=== PATIENT | female | born 1940 | race Caucasian/White ===

== ENCOUNTER → 2018-02-09 12:20 | Outpatient (CLI) | payer MEDICARE, SELFPAY ==
--- NOTE | 2018-02-09 | DI.MG.S_ITS ---
BILATERAL DIGITAL SCREENING MAMMOGRAM 3D/2D WITH CAD: 02/09/2018 CLINICAL: Routine screening. Comparison is made to exams dated: 12/10/2016 mammogram - [facility], 10/19/2015 mammogram, and 09/06/2014 mammogram - DIGITAL MAMMOGRAPHY. The tissue of both breasts is heterogeneously dense. This may lower the sensitivity of mammography. Current study was also evaluated with a Computer Aided Detection (CAD) system. No significant masses, calcifications, or other findings are seen in either breast. There has been no significant interval change. IMPRESSION: NEGATIVE There is no mammographic evidence of malignancy. A 1 year screening mammogram is recommended. This exam was interpreted at Station ID: [id number]. NOTE: For mammograms, a report in lay terms will be sent to the patient. Approximately 15% of breast malignancies will not be visualized mammographically. In the management of a palpable breast mass, a negative mammogram must not discourage biopsy of a clinically suspicious lesion. Electronically Signed By: Harris wright/abi:02/10/2018 09:22:54 letter sent: Normal Exam ACR BI-RADS Category 1: Negative [id number]
== END ==
PROVIDERS: Family Provider Physician Assistant; PCP Physician Assistant; Visit Provider Physician Assistant
DX: Z12.31 Encounter for screening mammogram for malignant neoplasm of breast (principal)
CPT/HCPCS: 77063; 77067

== ENCOUNTER → 2018-05-28 09:26 | Outpatient (CLI) | payer MEDICARE, SELFPAY ==
[2018-05-28 10:13] LABS: Add Manual Diff / Slide Review NO; Basophils Percent Auto 0.9 % (0-2); Eosinophils Percent Auto 3.3 % (2-4); Hematocrit 41.4 % (36-46); Hemoglobin 14.3 g/dL (12.0-16.0); Lymphocytes Percent Auto 24.8 % (25-40); Mean Corpuscular HGB Conc 34.7 % (30-36); Mean Corpuscular Hemoglobin 32.7 PG (26-34); Mean Corpuscular Volume 94.1 fL (80-100); Monocytes Percent Auto 6.5 % (3-14); Neutrophils Absolute Auto 2800 /uL (3000-5900); Neutrophils Percent Auto 64.5 % (50-75); Platelet Count 156 X10^3/uL (150-400); Red Blood Cell Count 4.39 X10^6/uL (4.0-5.2); Red Cell Distribution Width 12.9 % (11.6-14.8); White Blood Cell Count 4.4 X10^3/uL (4.5-11.0)
[2018-05-28 11:58] LABS: Alanine Aminotransferase 25 IU/L (9-52); Albumin 4.3 g/dL (3.5-5.0); Albumin Globulin Ratio 1.4 (1.0-2.8); Alkaline Phosphatase 52 U/L (38-126); Aspartate Aminotransferase 21 IU/L (14-36); BUN Creatinine Ratio 13.3 (6-22); Bilirubin Total 1.5 mg/dL (0.2-1.3); Blood Urea Nitrogen 12 mg/dL (7-17); Calcium 9.2 mg/dL (8.4-10.2); Carbon Dioxide 28 mmol/L (22-32); Chloride 104 mmol/L (98-107); Cholesterol 169 mg/dL (140-199); Estimated Glomerular Filt Rate > 60.0 mL/min (>60); Globulin 3.1 g/dL (1.7-4.1); Glucose 106 mg/dL (80-110); HDL Cholesterol 58 mg/dL (40-60); HEMOLYSIS < 15 (0-50); LDL Cholesterol Calculated 91 mg/dL (<100); Potassium 3.9 mmol/L (3.4-5.1); Sodium 143 mmol/L (137-145); Total Protein 7.4 g/dL (6.3-8.2); Triglycerides 100 mg/dL (35-150)
[2018-05-28 13:03] LABS: Thyroid Stimulating Hormone 1.81 uIU/mL (0.47-4.68)
== END ==
PROVIDERS: Family Provider Physician Assistant; PCP Physician Assistant; Visit Provider Physician Assistant
DX: E03.9 Hypothyroidism, unspecified (principal); E78.5 Hyperlipidemia, unspecified
CPT/HCPCS: 36415; 80053; 80061; 84443; 85025

== ENCOUNTER → 2018-10-15 19:24 | Outpatient (CLI) | payer MEDICARE, SELFPAY ==
--- NOTE | 2018-10-15 19:28 | DI.RAD.S_ITS ---
PROCEDURE: XR KNEE RT 3V INDICATIONS: Right lateral knee pain TECHNIQUE: 3 views of the knee were acquired. COMPARISON: None. FINDINGS: Bones: Moderate tricompartment osteoarthritis is seen. No acute fracture or dislocation. Soft tissues: No significant joint effusion. Well-corticated calcification in posterior aspect of lateral femoral tibial compartment is seen, suspicious for intra-articular loose body. IMPRESSION: Moderate tricompartment osteoarthritis. Possible intra-articular loose body in the posterior lateral femorotibial compartment. Dictated by: Timothy Garcia M.D. on 10/15/2018 at 20:00 Approved by: Timothy Garcia M.D. on 10/15/2018 at 20:01
== END ==
PROVIDERS: Family Provider Physician Assistant; PCP Physician Assistant; Visit Provider Physician Assistant
DX: M25.561 Pain in right knee (principal); M17.11 Unilateral primary osteoarthritis, right knee
CPT/HCPCS: 73562

== ENCOUNTER → 2018-10-20 07:01 | Outpatient (CLI) | payer MEDICARE, SELFPAY ==
--- NOTE | 2018-10-20 07:03 | DI.MRI.S_ITS ---
PROCEDURE: MR KNEE RT WO CON INDICATIONS: eval for possible intraarticular body TECHNIQUE: Noncontrast sagittal PD fast spin echo and T2 fast spin echo with fat saturation, sagittal 3-D FLASH with fat saturation; coronal T1 spin echo and PD fast spin echo with fat saturation, and axial PD fast spin echo with fat saturation through the knee. COMPARISON: None. FINDINGS: Image quality: Excellent. Menisci: Signal abnormality involving posterior horn of medial meniscus is seen extending to the inferior articulating surface suggestive of a focal oblique tear. There is no evidence of focal lateral meniscal tear.. The meniscal root ligaments appear intact. Cruciate ligaments: The anterior and posterior cruciate ligaments appear intact. Medial structures: The medial collateral ligament appears intact. The posterior oblique ligament, semimembranosus tendon insertions, oblique popliteal ligament, and meniscocapsular junction appear intact. Visualized portions of the pes anserinus tendons appear normal. No abnormal bursal fluid. Lateral structures: The lateral collateral ligament, long and short heads of the biceps femoris tendon appear intact. The popliteus tendon appears normal; the popliteofibular ligament appears intact. The posterosuperior and anteroinferior popliteomeniscal fascicles appear intact. The arcuate and fabellofibular ligaments appear intact, on either side of the lateral inferior geniculate artery. Iliotibial band appears normal. Anterior structures: The quadriceps and patellar tendons appear intact. Patellar alignment is normal. No femoral trochlear dysplasia or ventral trochlear prominence. No edema in the infrapatellar fat pad. Bones and cartilage: Moderate tricompartmental osteoarthritis is seen more prominent in the medial femorotibial compartment. No fracture or dislocation. Marrow edema involving anterior weight-bearing portion of lateral femoral condyle is seen with suggestion of 5 mm osteochondral lesion in this area. Chondromalacia as well all 3 compartments of right knee is seen. Joint space: There is small to moderate amount of knee joint fluid. No Valdez's cyst. Normal appearing synovial plicae are incidentally noted. IMPRESSION: #1. Suggestion of focal oblique tear involving posterior horn of medial meniscus extending to inferior articulating surface. No focal lateral meniscal tear. #2. Moderate tricompartment osteoarthritis and chondromalacia more prominent in the medial femorotibial compartment. Small osteochondral lesion is likely present involving anterior weight-bearing portion of lateral femoral condyle. #3. Small to moderate amount of joint effusion. No gross loose body. #4. Cruciate ligaments are intact. Dictated by: Timothy Garcia M.D. on 10/20/2018 at 10:14 Approved by: Timothy Garcia M.D. on 10/20/2018 at 10:58
== END ==
PROVIDERS: Family Provider Physician Assistant; PCP Physician Assistant; Visit Provider Physician Assistant
DX: M25.561 Pain in right knee (principal); M17.11 Unilateral primary osteoarthritis, right knee; M94.261 Chondromalacia, right knee; M25.461 Effusion, right knee
CPT/HCPCS: 73721

== ENCOUNTER 2018-11-26 10:48 | Day surgery (SDC) | payer MEDICARE, SELFPAY ==
[2018-11-26] VITALS (7 sets, daily range): BP systolic 118–138; BP diastolic 74–91; PULSE 96–114; RESP 12–17; TEMP 36.3–36.9; O2SAT 91–96; BMI 26.9
[2018-11-26] MEDS: SODIUM CHLORIDE 0.9% 1,000 ML 200 ML IV (11:16)
--- NOTE | 2018-11-26 11:23 | PM.HP.1 ---
History of Present Illness Chief complaint: [id number] Colonoscopy Patient History Social History household members: none Smoking Status: Never smoker Family & Social History Social History: household members none Tobacco & Substance use: Smoking Status Never smoker Meds Home Medications Medication Instructions Recorded Confirmed Type atorvastatin PO 10/15/18 10/15/18 History levothyroxine PO 10/15/18 10/15/18 History Allergies Allergy/AdvReac Type Severity Reaction Status Date / Time penicillin G [PENICILLIN G] Allergy Intermediate Unverified 10/28/17 12:32 Sulfa (Sulfonamide Allergy Intermediate Unverified 10/28/17 12:32 Antibiotics) [SULFA (SULFONAMIDE ANTIBIOTICS)] codine Allergy Severe Uncoded 10/28/17 12:32 Review of Systems Review of Systems All systems reviewed & are unremarkable except as noted in HPI and below Exam Vital Signs (past 8 hours): - 11/26/18 11:10 Temperature 98.4 F Pulse Rate 114 H Respiratory Rate 16 Blood Pressure 138/91 H Pulse Oximetry 94 Oxygen Delivery Method Room Air Narrative Exam Narrative: Patient is alert and oriented Vital signs are stable Lungs are clear with no rales or wheezes Heart regular rhythm no murmur Abdomen soft nontender no masses Rectal will be done at colonoscopy Assessment & Plan Assessment & Plan narrative: Patient is here for screening colonoscopy she has had prior scopes in the past she is on certain about history of polyps. She is asymptomatic no melena or hematochezia she has no questions about the procedure
[2018-11-26] MEDS: fentaNYL 250 MCG/5 ML INJ IV (11:32)
[2018-11-26] MEDS: MIDAZOLAM 5 MG/5 ML VIAL IV (11:33)
--- NOTE | 2018-11-26 11:54 | PM.OP.ENDO ---
Operative Date/Time/Diagnoses Date of procedure: 11/26/18 Time of procedure: 11:55 Pre-op diagnosis: Screening colonoscopy Post-op diagnosis: other (Severe sigmoid diverticulosis without diverticulitis) Procedure & Clinicians Study performed: Total colonoscopy to the cecum Same procedure as scheduled: Yes Indications: Screening Surgeon: Cleve Castaneda Procedure Notes SCOAP/Timeout: Done Procedure in detail: The patient was properly identified during surgical pause. She was given a total of 4 mg of Versed and 150 micro g of fentanyl throughout the procedure. the flexible fiberoptic colonoscope was inserted transanally to the cecum. The patient has severe sigmoid diverticulosis making this a difficult colonoscopy. However she tolerated this well. there were no tumors and no polyps no ulcerations. There is no diverticulitis. Scope withdrawal time: 10 Sedation minutes: 24 Findings: diverticulosis Specimen(s): none sent Complications: none Recommendations: Colonscopy in 10 years Follow up: as needed Disposition: PACU
--- NOTE | 2018-11-26 12:12 | SUR.PHASEI ---
Post procedure PACU Note: VSS on arrival. O2 sat 91% on RA O2 2 L/NC placed. Sats improved to 95%. Sitting up, tolerating po without any nausea. No complaints of pain or discomfort.
--- NOTE | 2018-11-26 12:16 | SUR.PHASEI ---
Verbal report given to Jaxon Carmona RN. for lunch relief. Patient stable to be transfered to [facility]. luisito Grissom
--- NOTE | 2018-11-26 12:59 | SUR.PHASEII ---
Late entry: Assumed care from Dashawn Cunha. Pt' ready to go, VSS. D/c instructions discussed, belly soft and no nausea. Assisted pt to dress and pt left when ready and in stable condition.
== END 2018-11-26 12:55 | disposition home or self-care (01) ==
PROVIDERS: Family Provider Physician Assistant; PCP Physician Assistant; Visit Provider Surgery
PROC: 0DJD8ZZ Inspection of Lower Intestinal Tract, Via Natural or Artificial Opening Endoscopic (ICD-10-PCS; CPT 45378; principal; 2018-11-26 13:00)
DX: Z12.11 Encounter for screening for malignant neoplasm of colon (principal); K57.30 Diverticulosis of large intestine without perforation or abscess without bleeding
CPT/HCPCS: G0121; 99152; 99153; J2250; J3010

== ENCOUNTER → 2019-02-18 10:58 | Outpatient (CLI) | payer MEDICARE, SELFPAY ==
--- NOTE | 2019-02-18 | DI.US.S_ITS ---
PROCEDURE: US PERIPH VENOUS LOW EXTREM RT INDICATIONS: PAIN IN RT LEG TECHNIQUE: Real-time imaging, as well as color and pulse Doppler interrogation, were performed of the lower extremity deep veins from the inguinal ligament to the popliteal fossa. COMPARISON: None. FINDINGS: The common femoral, femoral and popliteal veins are normally compressible, and free of intraluminal thrombus. Color and pulse Doppler demonstrate normal phasic intraluminal flow. There is normal augmentation response to distal compression maneuver. IMPRESSION: No evidence of deep venous thrombosis Dictated by: Isaiah Estes M.D. on 02/18/2019 at 12:54 Approved by: Isaiah Estes M.D. on 02/18/2019 at 12:55
== END ==
PROVIDERS: Family Provider Physician Assistant; PCP Physician Assistant; Visit Provider Orthopaedic Surgery
DX: M79.604 Pain in right leg (principal)
CPT/HCPCS: 93971

== ENCOUNTER → 2019-03-11 11:37 | Outpatient (CLI) | payer MEDICARE, SELFPAY ==
[2019-03-11 12:25] LABS: Add Manual Diff / Slide Review NO; Basophils Absolute Auto 0 /uL (0-100); Basophils Percent Auto 0.8 % (0-2); Eosinophils Absolute Auto 100 /uL (0-450); Eosinophils Percent Auto 2.7 % (2-4); Hemoglobin 14.3 g/dL (12.0-16.0); Lymphocytes Absolute Auto 1300 /uL (1100-4500); Lymphocytes Percent Auto 27.5 % (25-40); Mean Corpuscular HGB Conc 35.7 % (30-36); Mean Corpuscular Hemoglobin 32.4 PG (26-34); Mean Corpuscular Volume 90.6 fL (80-100); Monocytes Absolute Auto 400 /uL (0-900); Monocytes Percent Auto 7.6 % (3-14); Neutrophils Absolute Auto 2800 /uL (1500-7000); Neutrophils Percent Auto 61.4 % (50-75); Platelet Count 149 X10^3/uL (150-400); Red Blood Cell Count 4.42 X10^6/uL (4.0-5.2); White Blood Cell Count 4.6 X10^3/uL (4.5-11.0)
[2019-03-11 12:46] LABS: Alanine Aminotransferase 15 IU/L (9-52); Albumin 4.4 g/dL (3.5-5.0); Albumin Globulin Ratio 1.4 (1.0-2.8); Alkaline Phosphatase 60 U/L (38-126); Aspartate Aminotransferase 22 IU/L (14-36); Bilirubin Total 1.5 mg/dL (0.2-1.3); Blood Urea Nitrogen 16 mg/dL (7-17); Calcium 9.6 mg/dL (8.4-10.2); Carbon Dioxide 23 mmol/L (22-32); Chloride 106 mmol/L (98-107); Cholesterol 186 mg/dL (140-199); Estimated Glomerular Filt Rate > 60.0 mL/min (>60); Globulin 3.2 g/dL (1.7-4.1); Glucose 104 mg/dL (80-110); HDL Cholesterol 61 mg/dL (40-60); HEMOLYSIS < 15 (0-50); LDL Cholesterol Calculated 104 mg/dL (<100); Potassium 4.2 mmol/L (3.4-5.1); Sodium 140 mmol/L (137-145); Total Protein 7.6 g/dL (6.3-8.2); Triglycerides 106 mg/dL (35-150)
[2019-03-11 13:15] LABS: Thyroid Stimulating Hormone 0.99 uIU/mL (0.47-4.68)
== END ==
PROVIDERS: PCP Physician Assistant; Visit Provider Physician Assistant
DX: E03.9 Hypothyroidism, unspecified (principal); E78.5 Hyperlipidemia, unspecified
CPT/HCPCS: 36415; 80053; 80061; 84443; 85025

== ENCOUNTER → 2019-05-07 14:28 | Outpatient (CLI) | payer MEDICARE, SELFPAY ==
--- NOTE | 2019-05-07 | DI.MRI.S_ITS ---
PROCEDURE: MR LUMBAR SPINE WO CON INDICATIONS: Low back pain TECHNIQUE: Noncontrast sagittal T1 spin echo and T2 fast echo, sagittal STIR, axial T1 and T2 fast spin echo through the lumbar spine. In cases with scoliosis, additional coronal T2 fast spin echo may be performed. COMPARISON: None. FINDINGS: Image quality: Excellent. Alignment and Curvature: There is trace retrolisthesis of L1 on L2, L2 on L3. There is an appearance of partial lumbarization of the S1 vertebral body. For purposes of this exam, vertebral bodies are labeled one through 5. Bone Marrow: Marrow is of normal overall signal. Mild reactive endplate changes are present at L3-4 and L4-5 and to a lesser degree L1-L2, L2-3 and L5-S1. No acute vertebral body compression fractures. Schmorl's nodes are noted along the inferior endplates of L1, L2, L3 and L4 and along the superior endplates of L3, L4 and L5. Mild reactive marrow edema is noted at L2, L3, L4 and L5 predominately along the inferior endplates with superior endplate edema at L5. Spinal Cord: Conus medullaris terminates at the L2 level. Visualized cord demonstrates normal signal. There is an overall appearance of normal to mild congenital stenosis. Paraspinous Soft Tissues: No paravertebral masses. Multiple stones are noted within the gallbladder without wall thickening. There is a heterogeneous focus of hyperintensity within the posterior left kidney measuring 16 mm. Additional similar foci are noted bilaterally although not fully included within the [id number]. Discs: Severe desiccation is present throughout the lumbar spine. L1-L2: Mild disc bulge with mild spinal stenosis. Mild to moderate bilateral foraminal narrowing, left greater than right with facet and ligamentum flavum hypertrophy. L2-L3: Mild disc bulge with moderate spinal stenosis. Moderate bilateral foraminal narrowing with facet and ligamentum flavum hypertrophy. L3-L4: Mild disc bulge with moderate spinal stenosis. Moderate right and mild to moderate left foraminal narrowing with facet and ligamentum flavum hypertrophy. L4-L5: Mild disc bulge with moderate spinal stenosis. Mild to moderate left and minimal to mild right foraminal narrowing with facet and ligamentum flavum hypertrophy. L5-S1: Mild disc bulge including a small left foraminal protrusion. Moderate left foraminal narrowing. Facet and ligamentum flavum hypertrophy are present. IMPRESSION: 1. Multilevel degenerative changes. 2. Multilevel spinal stenosis moderate from L2-3 through L4-5 secondary to disc bulge with contributing factor facet/ligamentum flavum arthropathy. 3. Multilevel foraminal narrowing most notable at L2-3 and L5-S1 secondary to facet/ligamentum flavum arthropathy. 4. Cholelithiasis. 5. Multiple areas of somewhat heterogeneous T2 signal within the kidneys as above. While these could represent complex cysts, no priors are available for comparison. Ultrasound is recommended for further evaluation. Dictated by: Jade Herzog M.D. on 05/09/2019 at 11:59 Approved by: Jade Herzog M.D. on 05/09/2019 at 12:07
== END ==
PROVIDERS: PCP Physician Assistant; Visit Provider Physical Medicine & Rehabilitation Pain Medicine
DX: M47.816 Spondylosis without myelopathy or radiculopathy, lumbar region (principal); M47.817 Spondylosis without myelopathy or radiculopathy, lumbosacral region; M48.061 Spinal stenosis, lumbar region without neurogenic claudication; M48.07 Spinal stenosis, lumbosacral region; M51.26 Other intervertebral disc displacement, lumbar region; M51.27 Other intervertebral disc displacement, lumbosacral region; K80.20 Calculus of gallbladder without cholecystitis without obstruction
CPT/HCPCS: 72148

== ENCOUNTER → 2019-05-25 09:37 | Outpatient (CLI) | payer MEDICARE, SELFPAY ==
--- NOTE | 2019-05-25 | DI.US.S_ITS ---
PROCEDURE: US RENAL COMPLETE INDICATIONS: CYST OF KIDNEY, ACQUIRED TECHNIQUE: Real-time scanning was performed of the kidneys and bladder, with image documentation. COMPARISON: [facility], MR, MR LUMBAR SPINE WO CON, 05/07/2019, 14:51. FINDINGS: Kidneys: Kidneys are normal in size. Right kidney measures 9.8 cm long; left kidney measures 9.9 cm long. Right renal cortical thickness is 0.8 cm; left renal cortical thickness is 1.5 cm. Renal cortical echotexture is normal. No hydronephrosis or nephrolithiasis. There are 2 solid echogenic foci involving the superior pole the right kidney, largest measuring roughly 8 mm. Mildly complex right mid renal cortical cyst measuring 1.2 x 1.2 x 1.0 cm. Mural calcifications present. Multiple left renal cysts present, largest measuring 1.5 x 2.6 x 1.9 cm which is mildly complex with mural calcification. Bladder: Pre-void bladder volume is 93 mL. Post-void residual is 5 mL. Pre-void images demonstrate no intraluminal masses or stones. On pre-void images, bilateral ureteral jets are noted with color Doppler interrogation. (Of note, ureteral jets may not be detectable in up to 25% of cases due to insufficient differences in specific gravity between ureteral and bladder urine). Miscellaneous: No free pelvic fluid. Incidental note of cholelithiasis with multiple echogenic mobile shadowing gallstones. Limited evaluation demonstrates no gallbladder wall thickening. IMPRESSION: 1. 2 echogenic foci involving the superior pole the right kidney suggestive of small angiomyolipomas. 2. Bilateral complex cysts (Bosniak 2) largest of which is on the left measuring up to 2.6 cm. Recommend followup ultrasound in 6 months to document temporal stability. Alternatively, renal protocol CT or MRI could be performed for further assessment. 3. Cholelithiasis noted in the gallbladder. Dictated by: Armando Magallon [facility] Interpreted: Germán Montalvo MD on 05/25/2019 at 14:03 Approved by: Germán Montalvo M.D. on 05/25/2019 at 15:44
== END ==
PROVIDERS: PCP Physician Assistant; Visit Provider Physician Assistant
DX: N28.1 Cyst of kidney, acquired (principal); K80.20 Calculus of gallbladder without cholecystitis without obstruction
CPT/HCPCS: 76770

== ENCOUNTER → 2019-07-19 14:17 | Outpatient (CLI) | payer MEDICARE, SELFPAY ==
--- NOTE | 2019-07-19 | DI.MG.S_ITS ---
BILATERAL DIGITAL SCREENING MAMMOGRAM 3D/2D WITH CAD: 07/19/2019 CLINICAL: Routine screening. Comparison is made to exams dated: 02/09/2018 mammogram, 12/10/2016 mammogram - [facility], 10/19/2015 mammogram, 09/06/2014 mammogram, 08/16/2013 mammogram, and 04/06/2012 mammogram - DIGITAL MAMMOGRAPHY. The tissue of both breasts is heterogeneously dense. This may lower the sensitivity of mammography. Current study was also evaluated with a Computer Aided Detection (CAD) system. No significant masses, calcifications, or other findings are seen in either breast. There has been no significant interval change. IMPRESSION: NEGATIVE There is no mammographic evidence of malignancy. A 1 year screening mammogram is recommended. This exam was interpreted at Station ID: [id number]. NOTE: For mammograms, a report in lay terms will be sent to the patient. Approximately 15% of breast malignancies will not be visualized mammographically. In the management of a palpable breast mass, a negative mammogram must not discourage biopsy of a clinically suspicious lesion. Electronically Signed By: Jaxson pena/abi:07/19/2019 18:08:24 letter sent: Normal Exam ACR BI-RADS Category 1: Negative [id number]
== END ==
PROVIDERS: PCP Physician Assistant; Visit Provider Physician Assistant
DX: Z12.31 Encounter for screening mammogram for malignant neoplasm of breast (principal)
CPT/HCPCS: 77063; 77067

== ENCOUNTER 2019-09-01 13:30 | Outpatient (RCR) | payer MEDICARE, SELFPAY ==
--- NOTE | 2019-07-05 12:45 | PT.OIE ---
Current Diagnoses Spinal stenosis, lumbar region with neurogenic claudication (07/08/19) Low back pain (07/08/19) Visit Care Team Role Provider Type Symone Landrum PA-C Primary Care Provider Advanced Senior Care Assistant Specialty: Internal Medicine Address: [address] [place] [address], [id number] Email: [email or web address] Jamal Jaramillo MD Attending Provider Physician Specialty: Physical Medicine and Rehab Address: [address] [place] [address], [id number] Email: [email or web address] [facility] Initial Evaluation PT-OP-A Visit Information Start: 07/05/19 11:23 Freq: Status: Active Protocol: Document 07/05/19 11:24 LRN (Rec: 07/05/19 12:46 LRN [id number]) Out-Patient Physical Therapy Visit Information Visit Information Visit Type Initial Evaluation Visit Start Time 11:24 Visit Stop Time 12:24 Total Visit Minutes 60 Visit Number 1 Number of BALL WARPER TENDER Visits 0 Evaluation Information Evaluation Date 07/05/19 Precautions Precautions Pt reported Epidural 3 weeks ago (~06/14/19). Multilevel DDD with mild disc bulging L1 through S1 and at L5-S1 L foraminal protrusion. PT-OP-B Current Condition Start: 07/05/19 11:23 Freq: Status: Active Protocol: Document 07/05/19 11:24 LRN (Rec: 07/05/19 12:46 LRN [id number]) Current Condition History of Current Condition Onset Date 2011 epidurals, Fell Aug 2018 Current Complaints Low back pain and radiatint R LE pain. History of Current Condition Missed a step going from a boat to a smaller boat and landed on her buttocks. Was able to get up and felt a little sore, then it started to flare up. Tore R meniscus October 15, 2018 causing limping and increasing back pain. Lives alone, , single level home. Prior Treatments and Tests Per patient: Epidural in spine ~3 weeks ago that has helped a lot. X-rays @ [facility]: Arthritis, DDD and stenosis. MRI @ [facility] Cortisone injection in R knee, PT for knee, & 4 Hyaluronic injections (January 09, 2019), last one 02/28/19. Developmental History Developmental History Tore meniscus in the R knee. R handed. Treatment Goals Patient/Caregiver Goals Pt goal with therapy is to be able to walk 3 miles ([place] in 1 hour), and handle a trip by air with luggage and stairs by self. Prior Functional Status Baseline Function- ADL's Independent Baseline Function- Mobility Independent Baseline Function- Gait Able to walk 3 miles ([place] in 1 hour) Baseline Function- Other Avoided heavy lifting. Hires help to clean house. Current Functional Impairments (Reported) Functional Limitations- ADL's Walks less than 1/2 mile. Grocery shopping is painful at the end. Functional Limitations- Mobility/Gait Walking with excessive trunk sway. Personal Factors Other Personal Factors That May Effect Lives alone. Therapy/Recovery PT-OP-C Subjective Start: 07/05/19 11:23 Freq: Status: Active Protocol: Document 07/05/19 11:24 LRN (Rec: 07/05/19 12:46 LRN [id number]) Patient Questionnaires Oswestry Low Back Index Oswestry Score 22 Oswestry Impairment 20 to 39% Impaired (Score 20- 39) OP-PT Pain Assessment Location Back Pain Location Details Center of the back Intensity 3 Scale Used Numeric (1 - 10) Description Aching,Stabbing Pain Duration Low ache is all the time. Stabbing is when moving ( radiating pn before inj) Pain Aggravating Factors Standing,Walking,Prolonged Bedrest Other Pain Alleviating Factors IBP if really uncomfortable PT-OP-G Mobility & Gait Start: 07/05/19 11:23 Freq: Status: Active Protocol: Document 07/05/19 11:24 LRN (Rec: 07/08/19 12:41 LRN [id number]) OP Mobility Evaluation Bed Mobility Rolling Poor core control. Supine to and from Sit Pt transfers by lying or lifting trunk straight up into sitting. Transfers Sit to Stand Fair, poor hip hinging. OP Gait Assessment Gait Gait Assistance Required: Independent Able to Maintain Weight Bearing Status Yes During Gait Assistive Devices Assistive Device None Gait Deviations General Gait Pattern Decreased Stride Length, Lateral Trunk Lean Factors Limiting Gait Function Factors Limiting Gait Function Pain,Poor Balance PT-OP-H Neuro Start: 07/05/19 11:23 Freq: Status: Active Protocol: Document 07/05/19 11:24 LRN (Rec: 07/08/19 12:41 LRN [id number]) Sensation Evaluation Gross Sensation Gross Sensation WNL Deep Tendon Reflex & Clonus Assessment Deep Tendon Reflex Bilateral Achilles Deep Tendon Reflex 0 Absent Bilateral Patellar Deep Tendon Reflex 2+ Normal PT-OP-J Posture/Palpation/Skin Start: 07/05/19 11:23 Freq: Status: Active Protocol: Document 07/05/19 11:24 LRN (Rec: 07/08/19 09:46 LRN [id number]) Posture Evaluation Position Standing Evaluation View All positions L-Spine Posture Flattened,Flexed Pelvis Posture (L) Iliac Crest Superior Comments Posture Comments Flexed hips 15 deg's. L PSIS is deep. PT-OP-K Range of Motion Start: 07/05/19 11:23 Freq: Status: Active Protocol: Document 07/05/19 11:24 LRN (Rec: 07/08/19 09:46 LRN [id number]) Lumbar Spine Range of Motion Lumbar Spine Active Degrees Testing Position Standing Flexion 55 Extension 5 Lateral Flexion Left 8 Lateral Flexion Right 5 Comments With R SB there is L LBP on return to upright. Hip Goniometric Range of Motion Hip Right Passive Testing Position Supine Internal Rotation 40 External Rotation 45 Left Passive Testing Position Supine Internal Rotation 35 External Rotation 50 Hip ROM Limitations Hip ROM Limitations Pain PT-OP-L Special Tests Start: 07/05/19 11:23 Freq: Status: Active Protocol: Document 07/05/19 11:24 LRN (Rec: 07/08/19 12:37 LRN [id number]) Special Tests Lumbar Spine Special Tests Straight Leg Raise Test Results + left Comments PSLR: 70 left, 85 right. PT-OP-M Strength Start: 07/05/19 11:23 Freq: Status: Active Protocol: Document 07/05/19 11:24 LRN (Rec: 07/08/19 12:37 LRN [id number]) Hip Strength Hip Manual Muscle Testing Right Comments Generally 5/5. Left Flexion (L2) 3 Fair Comments Generally 5/5 except hip flexion above. PT-OP-Q Treatments Start: 07/05/19 11:23 Freq: Status: Active Protocol: Document 07/05/19 11:24 LRN (Rec: 07/08/19 12:37 LRN [id number]) Self-Care/Home Management Treatment Education Patient Education Body Mechanics,Home Exercise Program Activities Self-Care/Home Management Activities I/S & reviewed pt in HEP: Trunk R lateral shift with R shoulder against wall. I/S & reviewed: log roll transfers and sit to stand. I/S pt in gait with use of 2 hiking poles. PT-OP-T Assessment and Plan Start: 07/05/19 11:23 Freq: Status: Active Protocol: Document 07/05/19 11:24 LRN (Rec: 07/05/19 12:46 LRN [id number]) Physical Therapy Assessment Rehab Potential Rehabilitation Potential Good Evaluation Complexity Number of Personal Factors/Comorbidities 3 or More Number of Body Systems Impaired 4 or More Clinical Presentation at Evaluation Evolving Impairments Impairments Activity Tolerance,Functional Mobility,Gait,Pain,Posture,ROM ,Strength Goals Four Impairment Decreased functional strength of carrying objects up/down stairs. Jail Goal (LTG) Pt will be able to ambulate 4 steps x 2 with 3-5# weight with pain no greater than 2/10 . LTG Duration 09/16/19 Three Impairment Decreased functional mobility. Jail Goal (LTG) Pt will be feel confident in travelling by air and managing luggage by herself. LTG Duration 09/16/19 Two Impairment Decreased ability to exercise for her health (prior level walked 3 miles) Short Term Goal (STG) Pt goal with therapy is to be able to walk 3 miles ([place] in 1 hour), and handle a trip by air with luggage and stairs by self. [ End ] Volunteer Services Specialist Goal (LTG) Pt will be able to tolerate walking 3 miles (1 hour) on level ([place]) with use of walking sticks and pain no greater than 2/10. LTG Duration 09/16/19 One Impairment Pt lacks self care HEP Jail Goal (LTG) Pt will be independent in a self care HEP. LTG Duration 09/16/19 Assessment Summary Assessment Pt presents with changes in gait mechanics and posture probably due to R knee pain and pain from her degenerative disc condition. She has soft tissue and mechanical dysfunction of her spine that is limiting her physical and functional abilities. The pt will benefit from skilled physical therapy to decrease her back pain, improve posture and gait and progress her to a more active and functional condition. Her R knee meniscus injury may prevent her from achieving her full prior level of function, and I expect that if she is not able to improve within 8 therapy visits her knee injury may be her limiting factor in her ability to rehabilitate her back. Physical Therapy Plan Frequency and Duration Plan of Care Start Date 07/05/19 Plan of Care End Date 09/16/19 Therapeutic Interventions Therapeutic Interventions Balance Training,Gait Training ,Home Exercise Program,Manual Therapy,Neuromuscular Re- education,Patient/Caregiver Education,Self-Care/Home Management,Soft Tissue Mobilization,Therapeutic Exercises Modalities Cold Pack/Ice Massage,Electric Stimulation,Ultrasound Next Visit Focus/Plan Next Note Type Treatment Note Next Visit Plan Review HEP: lateral shift ex against wall, sit<->supine log roll technique, gait training if pt brings hiking poles for assist with gait to offload weight in R knee. STM to low back with trunk ext exercise program. End with MH or cryotherapy/IFES. Progress back rehabilitation with caution of R knee meniscus tear.
--- NOTE | 2019-07-08 13:20 | PT.OTN ---
Current Diagnoses Spinal stenosis, lumbar region with neurogenic claudication (07/08/19) Low back pain (07/08/19) Physical Therapy Treatment Note PT-OP-A Visit Information Start: 07/05/19 11:23 Freq: Status: Active Protocol: Document 07/08/19 11:24 LRN (Rec: 07/08/19 13:19 LRN [id number]) Out-Patient Physical Therapy Visit Information Visit Information Visit Type Treatment Note Visit Start Time 11:24 Visit Stop Time 12:10 Total Visit Minutes 46 Visit Number 2 Number of HEALTH SCIENCE INSTRUCTOR Visits 0 Evaluation Information Evaluation Date 07/05/19 Precautions Precautions Pt reported Epidural 3 weeks ago (~06/14/19). Multilevel DDD with mild disc bulging L1 through S1 and at L5-S1 L foraminal protrusion. PT-OP-B Current Condition Start: 07/05/19 11:23 Freq: Status: Active Protocol: Document 07/05/19 11:24 LRN (Rec: 07/05/19 12:46 LRN [id number]) Current Condition History of Current Condition Onset Date 2011 epidurals, Fell Aug 2018 Current Complaints Low back pain and radiatint R LE pain. History of Current Condition Missed a step going from a boat to a smaller boat and landed on her buttocks. Was able to get up and felt a little sore, then it started to flare up. Tore R meniscus October 15, 2018 causing limping and increasing back pain. Lives alone, , single level home. Prior Treatments and Tests Per patient: Epidural in spine ~3 weeks ago that has helped a lot. X-rays @ [facility]: Arthritis, DDD and stenosis. MRI @ [facility] Cortisone injection in R knee, PT for knee, & 4 Hyaluronic injections (January 09, 2019), last one 02/28/19. Developmental History Developmental History Tore meniscus in the R knee. R handed. Treatment Goals Patient/Caregiver Goals Pt goal with therapy is to be able to walk 3 miles ([employer] [address] [place] in 1 hour), and handle a trip by air with luggage and stairs by self. Prior Functional Status Baseline Function- ADL's Independent Baseline Function- Mobility Independent Baseline Function- Gait Able to walk 3 miles ([employer] [address] [place] in 1 hour) Baseline Function- Other Avoided heavy lifting. Hires help to clean house. Current Functional Impairments (Reported) Functional Limitations- ADL's Walks less than 1/2 mile. Grocery shopping is painful at the end. Functional Limitations- Mobility/Gait Walking with excessive trunk sway. Personal Factors Other Personal Factors That May Effect Lives alone. Therapy/Recovery PT-OP-C Subjective Start: 07/05/19 11:23 Freq: Status: Active Protocol: Document 07/08/19 11:24 LRN (Rec: 07/08/19 13:19 LRN [id number]) OP-PT Subjective Patient Comments Patient Comments States stiff all over. Admits she did not do the lateral shift exercise. Reports she brought a cane and walking sticks. PT-OP-G Mobility & Gait Start: 07/05/19 11:23 Freq: Status: Active Protocol: Document 07/05/19 11:24 LRN (Rec: 07/08/19 12:41 LRN [id number]) OP Mobility Evaluation Bed Mobility Rolling Poor core control. Supine to and from Sit Pt transfers by lying or lifting trunk straight up into sitting. Transfers Sit to Stand Fair, poor hip hinging. OP Gait Assessment Gait Gait Assistance Required: Independent Able to Maintain Weight Bearing Status Yes During Gait Assistive Devices Assistive Device None Gait Deviations General Gait Pattern Decreased Stride Length, Lateral Trunk Lean Factors Limiting Gait Function Factors Limiting Gait Function Pain,Poor Balance PT-OP-H Neuro Start: 07/05/19 11:23 Freq: Status: Active Protocol: Document 07/05/19 11:24 LRN (Rec: 07/08/19 12:41 LRN [id number]) Sensation Evaluation Gross Sensation Gross Sensation WNL Deep Tendon Reflex & Clonus Assessment Deep Tendon Reflex Bilateral Achilles Deep Tendon Reflex 0 Absent Bilateral Patellar Deep Tendon Reflex 2+ Normal PT-OP-J Posture/Palpation/Skin Start: 07/05/19 11:23 Freq: Status: Active Protocol: Document 07/05/19 11:24 LRN (Rec: 07/08/19 09:46 LRN [id number]) Posture Evaluation Position Standing Evaluation View All positions L-Spine Posture Flattened,Flexed Pelvis Posture (L) Iliac Crest Superior Comments Posture Comments Flexed hips 15 deg's. L PSIS is deep. PT-OP-K Range of Motion Start: 07/05/19 11:23 Freq: Status: Active Protocol: Document 07/05/19 11:24 LRN (Rec: 07/08/19 09:46 LRN [id number]) Lumbar Spine Range of Motion Lumbar Spine Active Degrees Testing Position Standing Flexion 55 Extension 5 Lateral Flexion Left 8 Lateral Flexion Right 5 Comments With R SB there is L LBP on return to upright. Hip Goniometric Range of Motion Hip Right Passive Testing Position Supine Internal Rotation 40 External Rotation 45 Left Passive Testing Position Supine Internal Rotation 35 External Rotation 50 Hip ROM Limitations Hip ROM Limitations Pain PT-OP-L Special Tests Start: 07/05/19 11:23 Freq: Status: Active Protocol: Document 07/05/19 11:24 LRN (Rec: 07/08/19 12:37 LRN [id number]) Special Tests Lumbar Spine Special Tests Straight Leg Raise Test Results + left Comments PSLR: 70 left, 85 right. PT-OP-M Strength Start: 07/05/19 11:23 Freq: Status: Active Protocol: Document 07/05/19 11:24 LRN (Rec: 07/08/19 12:37 LRN [id number]) Hip Strength Hip Manual Muscle Testing Right Comments Generally 5/5. Left Flexion (L2) 3 Fair Comments Generally 5/5 except hip flexion above. PT-OP-Q Treatments Start: 07/05/19 11:23 Freq: Status: Active Protocol: Document 07/08/19 11:24 LRN (Rec: 07/08/19 13:19 LRN [id number]) Therapeutic Exercises Prone Exercises Trunk ext Prone Exercise Name Prone lying & partial prone on elbows Reps/Minutes 3' Standing Exercises R lateral trunk shift Standing Exercise Name Lateral trunk shift Side right Reps/Minutes 3' Gait Training Gait Activity Gait w/cane & walking sticks Description Normalize gait to reduce trunk sway and improve R hip shift Device Used Cane or walking sticks Level of Assistance SBA Surface level Distance/Duration 20' PT-OP-R Modalities Start: 07/05/19 11:23 Freq: Status: Active Protocol: Document 07/08/19 11:24 LRN (Rec: 07/08/19 13:19 LRN [id number]) Electric Stimulation Electric Stimulation Interferential Current (IFC) Body Location Cross at L5-S1 and sacrum Duration (Minutes) 10 Intensity 12 Target/Sweep Sweep Patient Position Sidelying Combined With Heat/Cold Cold Pack Comments R sidelye. Extra time taken for initial set up and comfort of patient. Hot Pack/Cold Pack Treatment Cold Pack Location L LB/hip Patient Position Sidelying Treatment Duration (minutes) 10 Patient Tolerance Fair Comments Extra layer of towel and pillowcase between skin and cryotherapy. PT-OP-T Assessment and Plan Start: 07/05/19 11:23 Freq: Status: Active Protocol: Document 07/08/19 11:24 LRN (Rec: 07/08/19 13:19 LRN [id number]) Physical Therapy Assessment Goals Four Impairment Decreased functional strength of carrying objects up/down stairs. Mcc Goal (LTG) Pt will be able to ambulate 4 steps x 2 with 3-5# weight with pain no greater than 2/10 . LTG Duration 09/16/19 Three Impairment Decreased functional mobility. Geospatial Analyst Goal (LTG) Pt will be feel confident in travelling by air and managing luggage by herself. LTG Duration 09/16/19 Two Impairment Decreased ability to exercise for her health (prior level walked 3 miles) Short Term Goal (STG) Pt goal with therapy is to be able to walk 3 miles ([employer] [address] [place] in 1 hour), and handle a trip by air with luggage and stairs by self. [ End ] Geospatial Analyst Goal (LTG) Pt will be able to tolerate walking 3 miles (1 hour) on level ([employer] [address] [place]) with use of walking sticks and pain no greater than 2/10. LTG Duration 09/16/19 One Impairment Pt lacks self care HEP Geospatial Analyst Goal (LTG) Pt will be independent in a self care HEP. LTG Duration 09/16/19 Assessment Summary Assessment Pt needed review of lateral hip shift ex; hasn't been doing it. Pt has poor lateral hip shift to the right with gait and has excessive upper body sway without an assistive device or with walking sticks . Pt ambulates with an improved gait using a cane. Good tolerance to trunk ext. L hip IR and SLS on R is lacking. Physical Therapy Plan Frequency and Duration Frequency of Treatment 2x/Week Plan of Care Start Date 07/05/19 Plan of Care End Date 09/16/19 Next Visit Focus/Plan Next Note Type Treatment Note Next Visit Plan Assess response to cryotherapy /EStim and try MH/EStim if not favorable. Review sit<-> supine log roll technique, cont gait training. Start hip roll in/outs and SLS. STM to low back with trunk ext exercise program. End with MH or cryotherapy/IFES. Progress back rehabilitation with caution of R knee meniscus tear.
--- NOTE | 2019-07-12 12:23 | PT.OTN ---
Current Diagnoses Spinal stenosis, lumbar region with neurogenic claudication (07/12/19) Low back pain (07/12/19) Physical Therapy Treatment Note PT-OP-A Visit Information Start: 07/05/19 11:23 Freq: Status: Active Protocol: Document 07/12/19 11:27 LRN (Rec: 07/12/19 12:22 LRN [id number]) Out-Patient Physical Therapy Visit Information Visit Information Visit Type Treatment Note Visit Start Time 11:27 Visit Stop Time 12:10 Total Visit Minutes 43 Visit Number 3 Number of GLOBAL ACCOUNT DIRECTOR Visits 0 Evaluation Information Evaluation Date 07/05/19 Precautions Precautions Pt reported Epidural 3 weeks ago (~06/14/19). Multilevel DDD with mild disc bulging L1 through S1 and at L5-S1 L foraminal protrusion. PT-OP-B Current Condition Start: 07/05/19 11:23 Freq: Status: Active Protocol: Document 07/05/19 11:24 LRN (Rec: 07/05/19 12:46 LRN [id number]) Current Condition History of Current Condition Onset Date 2011 epidurals, Fell Aug 2018 Current Complaints Low back pain and radiatint R LE pain. History of Current Condition Missed a step going from a boat to a smaller boat and landed on her buttocks. Was able to get up and felt a little sore, then it started to flare up. Tore R meniscus October 15, 2018 causing limping and increasing back pain. Lives alone, , single level home. Prior Treatments and Tests Per patient: Epidural in spine ~3 weeks ago that has helped a lot. X-rays @ [facility]: Arthritis, DDD and stenosis. MRI @ [facility] Cortisone injection in R knee, PT for knee, & 4 Hyaluronic injections (January 09, 2019), last one 02/28/19. Developmental History Developmental History Tore meniscus in the R knee. R handed. Treatment Goals Patient/Caregiver Goals Pt goal with therapy is to be able to walk 3 miles ([employer] [address] [place] in 1 hour), and handle a trip by air with luggage and stairs by self. Prior Functional Status Baseline Function- ADL's Independent Baseline Function- Mobility Independent Baseline Function- Gait Able to walk 3 miles ([employer] [address] [place] in 1 hour) Baseline Function- Other Avoided heavy lifting. Hires help to clean house. Current Functional Impairments (Reported) Functional Limitations- ADL's Walks less than 1/2 mile. Grocery shopping is painful at the end. Functional Limitations- Mobility/Gait Walking with excessive trunk sway. Personal Factors Other Personal Factors That May Effect Lives alone. Therapy/Recovery PT-OP-C Subjective Start: 07/05/19 11:23 Freq: Status: Active Protocol: Document 07/12/19 11:27 LRN (Rec: 07/12/19 12:22 LRN [id number]) OP-PT Subjective Patient Comments Patient Comments Ms sore from use of cane for a couple days. Feels okay using the cane. Back pain is 1-2/10, twinging when moving. Back was better yesterday than this morning. Has done the wall ex and walked with the cane. Did a lot of tossing/turning last night. PT-OP-G Mobility & Gait Start: 07/05/19 11:23 Freq: Status: Active Protocol: Document 07/05/19 11:24 LRN (Rec: 07/08/19 12:41 LRN [id number]) OP Mobility Evaluation Bed Mobility Rolling Poor core control. Supine to and from Sit Pt transfers by lying or lifting trunk straight up into sitting. Transfers Sit to Stand Fair, poor hip hinging. OP Gait Assessment Gait Gait Assistance Required: Independent Able to Maintain Weight Bearing Status Yes During Gait Assistive Devices Assistive Device None Gait Deviations General Gait Pattern Decreased Stride Length, Lateral Trunk Lean Factors Limiting Gait Function Factors Limiting Gait Function Pain,Poor Balance PT-OP-H Neuro Start: 07/05/19 11:23 Freq: Status: Active Protocol: Document 07/05/19 11:24 LRN (Rec: 07/08/19 12:41 LRN [id number]) Sensation Evaluation Gross Sensation Gross Sensation WNL Deep Tendon Reflex & Clonus Assessment Deep Tendon Reflex Bilateral Achilles Deep Tendon Reflex 0 Absent Bilateral Patellar Deep Tendon Reflex 2+ Normal PT-OP-J Posture/Palpation/Skin Start: 07/05/19 11:23 Freq: Status: Active Protocol: Document 07/05/19 11:24 LRN (Rec: 07/08/19 09:46 LRN [id number]) Posture Evaluation Position Standing Evaluation View All positions L-Spine Posture Flattened,Flexed Pelvis Posture (L) Iliac Crest Superior Comments Posture Comments Flexed hips 15 deg's. L PSIS is deep. PT-OP-K Range of Motion Start: 07/05/19 11:23 Freq: Status: Active Protocol: Document 07/05/19 11:24 LRN (Rec: 07/08/19 09:46 LRN [id number]) Lumbar Spine Range of Motion Lumbar Spine Active Degrees Testing Position Standing Flexion 55 Extension 5 Lateral Flexion Left 8 Lateral Flexion Right 5 Comments With R SB there is L LBP on return to upright. Hip Goniometric Range of Motion Hip Right Passive Testing Position Supine Internal Rotation 40 External Rotation 45 Left Passive Testing Position Supine Internal Rotation 35 External Rotation 50 Hip ROM Limitations Hip ROM Limitations Pain PT-OP-L Special Tests Start: 07/05/19 11:23 Freq: Status: Active Protocol: Document 07/05/19 11:24 LRN (Rec: 07/08/19 12:37 LRN [id number]) Special Tests Lumbar Spine Special Tests Straight Leg Raise Test Results + left Comments PSLR: 70 left, 85 right. PT-OP-M Strength Start: 07/05/19 11:23 Freq: Status: Active Protocol: Document 07/05/19 11:24 LRN (Rec: 07/08/19 12:37 LRN [id number]) Hip Strength Hip Manual Muscle Testing Right Comments Generally 5/5. Left Flexion (L2) 3 Fair Comments Generally 5/5 except hip flexion above. PT-OP-Q Treatments Start: 07/05/19 11:23 Freq: Status: Active Protocol: Document 07/12/19 11:27 LRN (Rec: 07/12/19 12:22 LRN [id number]) Therapeutic Exercises Supine Exercises LE Roll in/out w/Deep Breathing Supine Exercise Name LE roll in/out w/Deep Breathing Reps/Minutes 10x Deep Breathing Supine Exercise Name Deep Breathing Reps/Minutes 10x Prone Exercises Trunk ext Prone Exercise Name Prone lying & partial prone on elbows Reps/Minutes 8 Comments Extra time taken to get pt prone and comfortable. Pt moving slowly Standing Exercises Sit to Stand Standing Exercise Name Sit<->Stand Reps/Minutes 10x R lateral trunk shift Standing Exercise Name Lateral trunk shift Side right Reps/Minutes 2' Gait Training Gait Activity Weight shifting Description Proper trunk posture w/weight shifting Level of Assistance Physical cuing Distance/Duration 15' Treatment Focus Trunk posture Manual Therapy Treatment Soft Tissue Mobilization TFL Body Location R TFL Mobilization Type Strumming,Sustained Pressure Intensity/Depth Moderate Body Position Prone Piriformis Body Location L Piriformis Mobilization Type Strumming,Sustained Pressure Intensity/Depth Moderate Body Position Prone QL, Upper Gluteal Body Location L QL/Upper Gluteal Mobilization Type Strumming,Sustained Pressure Intensity/Depth Moderate Body Position Prone Self-Care/Home Management Treatment Education Patient Education Body Mechanics,Home Exercise Program Activities Self-Care/Home Management Activities I/S pt in hip hinging for sit< ->stand. Sit to supine. training. Issued & reviewed HEP: of LE Roll in/out. PT-OP-R Modalities Start: 07/05/19 11:23 Freq: Status: Active Protocol: Document 07/08/19 11:24 LRN (Rec: 07/08/19 13:19 LRN [id number]) Electric Stimulation Electric Stimulation Interferential Current (IFC) Body Location Cross at L5-S1 and sacrum Duration (Minutes) 10 Intensity 12 Target/Sweep Sweep Patient Position Sidelying Combined With Heat/Cold Cold Pack Comments R sidelye. Extra time taken for initial set up and comfort of patient. Hot Pack/Cold Pack Treatment Cold Pack Location L LB/hip Patient Position Sidelying Treatment Duration (minutes) 10 Patient Tolerance Fair Comments Extra layer of towel and pillowcase between skin and cryotherapy. PT-OP-T Assessment and Plan Start: 07/05/19 11:23 Freq: Status: Active Protocol: Document 07/12/19 11:27 LRN (Rec: 07/12/19 12:22 LRN [id number]) Physical Therapy Assessment Goals Four Impairment Decreased functional strength of carrying objects up/down stairs. Clinical Account Liaison Goal (LTG) Pt will be able to ambulate 4 steps x 2 with 3-5# weight with pain no greater than 2/10 . LTG Duration 09/16/19 Three Impairment Decreased functional mobility. Clinical Account Liaison Goal (LTG) Pt will be feel confident in travelling by air and managing luggage by herself. LTG Duration 09/16/19 Two Impairment Decreased ability to exercise for her health (prior level walked 3 miles) Short Term Goal (STG) Pt goal with therapy is to be able to walk 3 miles ([employer] [address] [place] in 1 hour), and handle a trip by air with luggage and stairs by self. [ End ] Clinical Account Liaison Goal (LTG) Pt will be able to tolerate walking 3 miles (1 hour) on level ([employer] [address] [place]) with use of walking sticks and pain no greater than 2/10. LTG Duration 09/16/19 One Impairment Pt lacks self care HEP Senior Care Goal (LTG) Pt will be independent in a self care HEP. LTG Duration 09/16/19 Assessment Summary Assessment +response to cryotherapy. Pt posture is better. She leans forward and rotates and dips shoulders with wgt shifting. Pt sore from ex after therapy. Physical Therapy Plan Frequency and Duration Frequency of Treatment 2x/Week Plan of Care Start Date 07/05/19 Plan of Care End Date 09/16/19 Next Visit Focus/Plan Next Note Type Treatment Note Next Visit Plan End cryotherapy/EStim. Monitor sit<->supine log roll technique, cont gait training. Start SLS. Progress back rehabilitation with caution of R knee meniscus tear.
--- NOTE | 2019-07-15 12:22 | PT.OTN ---
Current Diagnoses Spinal stenosis, lumbar region with neurogenic claudication (07/15/19) Low back pain (07/15/19) Physical Therapy Treatment Note PT-OP-A Visit Information Start: 07/05/19 11:23 Freq: Status: Active Protocol: Document 07/15/19 11:23 LRN (Rec: 07/15/19 12:20 LRN [id number]) Out-Patient Physical Therapy Visit Information Visit Information Visit Type Treatment Note Visit Start Time 11:23 Visit Stop Time 12:11 Total Visit Minutes 48 Visit Number 4 Number of FOLDING MACHINE TENDER Visits 0 Evaluation Information Evaluation Date 07/05/19 Precautions Precautions Pt reported Epidural 3 weeks ago (~06/14/19). Multilevel DDD with mild disc bulging L1 through S1 and at L5-S1 L foraminal protrusion. PT-OP-B Current Condition Start: 07/05/19 11:23 Freq: Status: Active Protocol: Document 07/05/19 11:24 LRN (Rec: 07/05/19 12:46 LRN [id number]) Current Condition History of Current Condition Onset Date 2011 epidurals, Fell Aug 2018 Current Complaints Low back pain and radiatint R LE pain. History of Current Condition Missed a step going from a boat to a smaller boat and landed on her buttocks. Was able to get up and felt a little sore, then it started to flare up. Tore R meniscus October 15, 2018 causing limping and increasing back pain. Lives alone, , single level home. Prior Treatments and Tests Per patient: Epidural in spine ~3 weeks ago that has helped a lot. X-rays @ [place]: Arthritis, DDD and stenosis. MRI @ [place] Cortisone injection in R knee, PT for knee, & 4 Hyaluronic injections (January 09, 2019), last one 02/28/19. Developmental History Developmental History Tore meniscus in the R knee. R handed. Treatment Goals Patient/Caregiver Goals Pt goal with therapy is to be able to walk 3 miles ([address] [place] in 1 hour), and handle a trip by air with luggage and stairs by self. Prior Functional Status Baseline Function- ADL's Independent Baseline Function- Mobility Independent Baseline Function- Gait Able to walk 3 miles ([place] [address] [place] in 1 hour) Baseline Function- Other Avoided heavy lifting. Hires help to clean house. Current Functional Impairments (Reported) Functional Limitations- ADL's Walks less than 1/2 mile. Grocery shopping is painful at the end. Functional Limitations- Mobility/Gait Walking with excessive trunk sway. Personal Factors Other Personal Factors That May Effect Lives alone. Therapy/Recovery PT-OP-C Subjective Start: 07/05/19 11:23 Freq: Status: Active Protocol: Document 07/15/19 11:23 LRN (Rec: 07/15/19 12:20 LRN [id number]) OP-PT Subjective Patient Comments Patient Comments Might be a little better. PT-OP-G Mobility & Gait Start: 07/05/19 11:23 Freq: Status: Active Protocol: Document 07/05/19 11:24 LRN (Rec: 07/08/19 12:41 LRN [id number]) OP Mobility Evaluation Bed Mobility Rolling Poor core control. Supine to and from Sit Pt transfers by lying or lifting trunk straight up into sitting. Transfers Sit to Stand Fair, poor hip hinging. OP Gait Assessment Gait Gait Assistance Required: Independent Able to Maintain Weight Bearing Status Yes During Gait Assistive Devices Assistive Device None Gait Deviations General Gait Pattern Decreased Stride Length, Lateral Trunk Lean Factors Limiting Gait Function Factors Limiting Gait Function Pain,Poor Balance PT-OP-H Neuro Start: 07/05/19 11:23 Freq: Status: Active Protocol: Document 07/05/19 11:24 LRN (Rec: 07/08/19 12:41 LRN [id number]) Sensation Evaluation Gross Sensation Gross Sensation WNL Deep Tendon Reflex & Clonus Assessment Deep Tendon Reflex Bilateral Achilles Deep Tendon Reflex 0 Absent Bilateral Patellar Deep Tendon Reflex 2+ Normal PT-OP-J Posture/Palpation/Skin Start: 07/05/19 11:23 Freq: Status: Active Protocol: Document 07/05/19 11:24 LRN (Rec: 07/08/19 09:46 LRN [id number]) Posture Evaluation Position Standing Evaluation View All positions L-Spine Posture Flattened,Flexed Pelvis Posture (L) Iliac Crest Superior Comments Posture Comments Flexed hips 15 deg's. L PSIS is deep. PT-OP-K Range of Motion Start: 07/05/19 11:23 Freq: Status: Active Protocol: Document 07/05/19 11:24 LRN (Rec: 07/08/19 09:46 LRN [id number]) Lumbar Spine Range of Motion Lumbar Spine Active Degrees Testing Position Standing Flexion 55 Extension 5 Lateral Flexion Left 8 Lateral Flexion Right 5 Comments With R SB there is L LBP on return to upright. Hip Goniometric Range of Motion Hip Right Passive Testing Position Supine Internal Rotation 40 External Rotation 45 Left Passive Testing Position Supine Internal Rotation 35 External Rotation 50 Hip ROM Limitations Hip ROM Limitations Pain PT-OP-L Special Tests Start: 07/05/19 11:23 Freq: Status: Active Protocol: Document 07/05/19 11:24 LRN (Rec: 07/08/19 12:37 LRN [id number]) Special Tests Lumbar Spine Special Tests Straight Leg Raise Test Results + left Comments PSLR: 70 left, 85 right. PT-OP-M Strength Start: 07/05/19 11:23 Freq: Status: Active Protocol: Document 07/05/19 11:24 LRN (Rec: 07/08/19 12:37 LRN [id number]) Hip Strength Hip Manual Muscle Testing Right Comments Generally 5/5. Left Flexion (L2) 3 Fair Comments Generally 5/5 except hip flexion above. PT-OP-Q Treatments Start: 07/05/19 11:23 Freq: Status: Active Protocol: Document 07/15/19 11:23 LRN (Rec: 07/15/19 12:20 LRN [id number]) Therapeutic Exercises Supine Exercises LE Roll in/out w/Deep Breathing Supine Exercise Name LE roll in/out w/Deep Breathing Resistance T-Band Reps/Minutes 14' Comments Ex training to start, f/b training w/T-Band and towel roll Deep Breathing Supine Exercise Name Deep Breathing Reps/Minutes 2x Standing Exercises Sit to Stand Standing Exercise Name Sit<->Stand Reps/Minutes 10x R lateral trunk shift Standing Exercise Name Lateral trunk shift Side right Reps/Minutes 2' Gait Training Gait Activity Weight Shift (WS) with foot lift Description WS with foot lift Device Used Railing Surface level Distance/Duration 10' Comments Initiation of balance with proper upper body posture. Weight shifting Description Proper trunk posture w/weight shifting Level of Assistance Physical cuing Distance/Duration 10' Treatment Focus Trunk posture Manual Therapy Treatment Joint Mobilizations R innominate outflare correction Joint SIJ Direction Correction for a R outflare/L inflare Reps/Duration 7' Self-Care/Home Management Treatment Education Patient Education Home Exercise Program Activities Self-Care/Home Management Activities Issue & revliewed HEP: Weight shifting for balance and gait , Hip AB walk with I/S for standing hip AB, & shallow squats. PT-OP-R Modalities Start: 07/05/19 11:23 Freq: Status: Active Protocol: Document 07/08/19 11:24 LRN (Rec: 07/08/19 13:19 LRN [id number]) Electric Stimulation Electric Stimulation Interferential Current (IFC) Body Location Cross at L5-S1 and sacrum Duration (Minutes) 10 Intensity 12 Target/Sweep Sweep Patient Position Sidelying Combined With Heat/Cold Cold Pack Comments R sidelye. Extra time taken for initial set up and comfort of patient. Hot Pack/Cold Pack Treatment Cold Pack Location L LB/hip Patient Position Sidelying Treatment Duration (minutes) 10 Patient Tolerance Fair Comments Extra layer of towel and pillowcase between skin and cryotherapy. PT-OP-T Assessment and Plan Start: 07/05/19 11:23 Freq: Status: Active Protocol: Document 07/15/19 11:23 LRN (Rec: 07/15/19 12:20 LRN [id number]) Physical Therapy Assessment Assessment Summary Assessment Good transfer technique stand> sit>supine with log roll technique. Pt able to weight shift maintaining upright posture. She ambs with cane and good mechanics. Pt LBP controlled in standing during weight shift ex by keeping pelvis in neutral (avoiding rotation of pelvis R with L LE weightbearing). Pt didn't need EStim after therapy. Physical Therapy Plan Frequency and Duration Frequency of Treatment 2x/Week Plan of Care Start Date 07/05/19 Plan of Care End Date 09/16/19 Next Visit Focus/Plan Next Note Type Treatment Note Next Visit Plan End cryotherapy/EStim if needed. Cont gait training. Progress towards SLS. Progress back rehabilitation with caution of R knee meniscus tear.
--- NOTE | 2019-07-18 13:28 | PT.OTN ---
Current Diagnoses Spinal stenosis, lumbar region with neurogenic claudication (07/18/19) Low back pain (07/18/19) Physical Therapy Treatment Note PT-OP-A Visit Information Start: 07/05/19 11:23 Freq: Status: Active Protocol: Document 07/18/19 09:03 LRN (Rec: 07/18/19 09:50 LRN [id number]) Out-Patient Physical Therapy Visit Information Visit Information Visit Type Treatment Note Visit Start Time 09:03 Visit Stop Time 09:52 Total Visit Minutes 49 Visit Number 5 Number of BUHR MILL OPERATOR Visits 0 Evaluation Information Evaluation Date 07/05/19 Precautions Precautions Pt reported Epidural 3 weeks ago (~06/14/19). Multilevel DDD with mild disc bulging L1 through S1 and at L5-S1 L foraminal protrusion. PT-OP-B Current Condition Start: 07/05/19 11:23 Freq: Status: Active Protocol: Document 07/05/19 11:24 LRN (Rec: 07/05/19 12:46 LRN [id number]) Current Condition History of Current Condition Onset Date 2011 epidurals, Fell Aug 2018 Current Complaints Low back pain and radiatint R LE pain. History of Current Condition Missed a step going from a boat to a smaller boat and landed on her buttocks. Was able to get up and felt a little sore, then it started to flare up. Tore R meniscus October 15, 2018 causing limping and increasing back pain. Lives alone, , single level home. Prior Treatments and Tests Per patient: Epidural in spine ~3 weeks ago that has helped a lot. X-rays @ [place]: Arthritis, DDD and stenosis. MRI @ [place] Cortisone injection in R knee, PT for knee, & 4 Hyaluronic injections (January 09, 2019), last one 02/28/19. Developmental History Developmental History Tore meniscus in the R knee. R handed. Treatment Goals Patient/Caregiver Goals Pt goal with therapy is to be able to walk 3 miles ([email or web address] [place] in 1 hour), and handle a trip by air with luggage and stairs by self. Prior Functional Status Baseline Function- ADL's Independent Baseline Function- Mobility Independent Baseline Function- Gait Able to walk 3 miles ([place] [address] [place] in 1 hour) Baseline Function- Other Avoided heavy lifting. Hires help to clean house. Current Functional Impairments (Reported) Functional Limitations- ADL's Walks less than 1/2 mile. Grocery shopping is painful at the end. Functional Limitations- Mobility/Gait Walking with excessive trunk sway. Personal Factors Other Personal Factors That May Effect Lives alone. Therapy/Recovery PT-OP-C Subjective Start: 07/05/19 11:23 Freq: Status: Active Protocol: Document 07/18/19 09:03 LRN (Rec: 07/18/19 09:50 LRN [id number]) OP-PT Subjective Patient Comments Patient Comments States 2 days ago, she was doing the standing hip AB ex holding onto her bathroom counter and irritated the R knee. States it hasn't stopped her from doing what she wants to do. Back is doing much better than it was. Having less pain and strengthening around the core. Back pain 0-1/10. R knee is 2/10. PT-OP-G Mobility & Gait Start: 07/05/19 11:23 Freq: Status: Active Protocol: Document 07/05/19 11:24 LRN (Rec: 07/08/19 12:41 LRN [id number]) OP Mobility Evaluation Bed Mobility Rolling Poor core control. Supine to and from Sit Pt transfers by lying or lifting trunk straight up into sitting. Transfers Sit to Stand Fair, poor hip hinging. OP Gait Assessment Gait Gait Assistance Required: Independent Able to Maintain Weight Bearing Status Yes During Gait Assistive Devices Assistive Device None Gait Deviations General Gait Pattern Decreased Stride Length, Lateral Trunk Lean Factors Limiting Gait Function Factors Limiting Gait Function Pain,Poor Balance PT-OP-H Neuro Start: 07/05/19 11:23 Freq: Status: Active Protocol: Document 07/05/19 11:24 LRN (Rec: 07/08/19 12:41 LRN [id number]) Sensation Evaluation Gross Sensation Gross Sensation WNL Deep Tendon Reflex & Clonus Assessment Deep Tendon Reflex Bilateral Achilles Deep Tendon Reflex 0 Absent Bilateral Patellar Deep Tendon Reflex 2+ Normal PT-OP-J Posture/Palpation/Skin Start: 07/05/19 11:23 Freq: Status: Active Protocol: Document 07/05/19 11:24 LRN (Rec: 07/08/19 09:46 LRN [id number]) Posture Evaluation Position Standing Evaluation View All positions L-Spine Posture Flattened,Flexed Pelvis Posture (L) Iliac Crest Superior Comments Posture Comments Flexed hips 15 deg's. L PSIS is deep. PT-OP-K Range of Motion Start: 07/05/19 11:23 Freq: Status: Active Protocol: Document 07/05/19 11:24 LRN (Rec: 07/08/19 09:46 LRN [id number]) Lumbar Spine Range of Motion Lumbar Spine Active Degrees Testing Position Standing Flexion 55 Extension 5 Lateral Flexion Left 8 Lateral Flexion Right 5 Comments With R SB there is L LBP on return to upright. Hip Goniometric Range of Motion Hip Right Passive Testing Position Supine Internal Rotation 40 External Rotation 45 Left Passive Testing Position Supine Internal Rotation 35 External Rotation 50 Hip ROM Limitations Hip ROM Limitations Pain PT-OP-L Special Tests Start: 07/05/19 11:23 Freq: Status: Active Protocol: Document 07/05/19 11:24 LRN (Rec: 07/08/19 12:37 LRN [id number]) Special Tests Lumbar Spine Special Tests Straight Leg Raise Test Results + left Comments PSLR: 70 left, 85 right. PT-OP-M Strength Start: 07/05/19 11:23 Freq: Status: Active Protocol: Document 07/05/19 11:24 LRN (Rec: 07/08/19 12:37 LRN [id number]) Hip Strength Hip Manual Muscle Testing Right Comments Generally 5/5. Left Flexion (L2) 3 Fair Comments Generally 5/5 except hip flexion above. PT-OP-Q Treatments Start: 07/05/19 11:23 Freq: Status: Active Protocol: Document 07/18/19 09:03 LRN (Rec: 07/18/19 09:50 LRN [id number]) Therapeutic Exercises Supine Exercises Bridging Supine Exercise Name Bridging w/PF contraction every other lift Reps/Minutes 10x LE Roll in/out w/Deep Breathing Supine Exercise Name LE roll in/out w/Deep Breathing Resistance T-Band Reps/Minutes 4' Comments Ex training to start, f/b training w/PF contraction Deep Breathing Supine Exercise Name Deep Breathing Reps/Minutes 2x Sitting Exercises Ankle DF Sitting Exercise Name Ankle DF strengthening Side bilateral Equipment Used Lev 2 T-Band Reps/Minutes 8' Comments Extra time taken for strengthening. Ankle EV Sitting Exercise Name Ankle EV strengthening Side bilateral Equipment Used Lev 2 T-Band Reps/Minutes 8' Comments Extra time taken for strenghtening. Self-Care/Home Management Treatment Activities Self-Care/Home Management Activities Issued & reviewed HEP: T-Band ankle DF/EV strengthening. PT-OP-R Modalities Start: 07/05/19 11:23 Freq: Status: Active Protocol: Document 07/18/19 09:03 LRN (Rec: 07/18/19 09:50 LRN [id number]) Electric Stimulation Electric Stimulation Interferential Current (IFC) Body Location Cross at L5-S1 and sacrum Duration (Minutes) 15 Intensity 12 Target/Sweep Sweep Patient Position Supine Combined With Heat/Cold Cold Pack Hot Pack/Cold Pack Treatment Hot Pack Location Front chest while on ice to low back Patient Position Supine Treatment Duration (minutes) 15 Patient Tolerance Good Comments Heat on during Ice/E-Stim Cold Pack Location L LB/hip Patient Position Supine Treatment Duration (minutes) 15 Patient Tolerance Good Comments Ice during E-Stim Extra layer of pt's sweatshirt and pillowcase between skin and cryotherapy. PT-OP-T Assessment and Plan Start: 07/05/19 11:23 Freq: Status: Active Protocol: Document 07/18/19 09:03 LRN (Rec: 07/18/19 09:50 LRN [id number]) Physical Therapy Assessment Goals Four Impairment Decreased functional strength of carrying objects up/down stairs. Care Home Goal (LTG) Pt will be able to ambulate 4 steps x 2 with 3-5# weight with pain no greater than 2/10 . LTG Duration 09/16/19 Three Impairment Decreased functional mobility. Bottle Capping Machine Operator Goal (LTG) Pt will be feel confident in travelling by air and managing luggage by herself. LTG Duration 09/16/19 Two Impairment Decreased ability to exercise for her health (prior level walked 3 miles) Short Term Goal (STG) Pt goal with therapy is to be able to walk 3 miles ([place] [address] [place] in 1 hour), and handle a trip by air with luggage and stairs by self. [ End ] Care Home Goal (LTG) Pt will be able to tolerate walking 3 miles (1 hour) on level ([place] [address] [place]) with use of walking sticks and pain no greater than 2/10. LTG Duration 09/16/19 One Impairment Pt lacks self care HEP Bottle Capping Machine Operator Goal (LTG) Pt will be independent in a self care HEP. LTG Duration 09/16/19 Assessment Summary Assessment Pelvis is in neutral to start. Pt weak in hip AB & ankles, especially with EV. Back is less shifted to the right, but still present. Physical Therapy Plan Frequency and Duration Frequency of Treatment 2x/Week Plan of Care Start Date 07/05/19 Plan of Care End Date 09/16/19 Next Visit Focus/Plan Next Note Type Treatment Note Next Visit Plan Assess response to ending cryotherapy/EStim. Add supine or sidelie Hip AB strengthening (avoid standing due to R knee dysfunction). Gait training to progress towards SLS. Progress back rehabilitation with caution of R knee meniscus tear.
--- NOTE | 2019-07-21 15:21 | PT.OTN ---
Current Diagnoses Spinal stenosis, lumbar region with neurogenic claudication (07/21/19) Low back pain (07/21/19) Physical Therapy Treatment Note PT-OP-A Visit Information Start: 07/05/19 11:23 Freq: Status: Active Protocol: Document 07/21/19 09:02 LRN (Rec: 07/21/19 09:53 LRN [id number]) Out-Patient Physical Therapy Visit Information Visit Information Visit Type Treatment Note Visit Start Time 09:02 Visit Stop Time 09:53 Total Visit Minutes 51 Visit Number 6 Number of CENTRAL STERILE TECH Visits 0 Evaluation Information Evaluation Date 07/05/19 Precautions Precautions Pt reported Epidural 3 weeks ago (~06/14/19). Multilevel DDD with mild disc bulging L1 through S1 and at L5-S1 L foraminal protrusion. PT-OP-B Current Condition Start: 07/05/19 11:23 Freq: Status: Active Protocol: Document 07/05/19 11:24 LRN (Rec: 07/05/19 12:46 LRN [id number]) Current Condition History of Current Condition Onset Date 2011 epidurals, Fell Aug 2018 Current Complaints Low back pain and radiatint R LE pain. History of Current Condition Missed a step going from a boat to a smaller boat and landed on her buttocks. Was able to get up and felt a little sore, then it started to flare up. Tore R meniscus October 15, 2018 causing limping and increasing back pain. Lives alone, , single level home. Prior Treatments and Tests Per patient: Epidural in spine ~3 weeks ago that has helped a lot. X-rays @ [place]: Arthritis, DDD and stenosis. MRI @ [place] Cortisone injection in R knee, PT for knee, & 4 Hyaluronic injections (January 09, 2019), last one 02/28/19. Developmental History Developmental History Tore meniscus in the R knee. R handed. Treatment Goals Patient/Caregiver Goals Pt goal with therapy is to be able to walk 3 miles ([place] in 1 hour), and handle a trip by air with luggage and stairs by self. Prior Functional Status Baseline Function- ADL's Independent Baseline Function- Mobility Independent Baseline Function- Gait Able to walk 3 miles ([place] [address] [place] in 1 hour) Baseline Function- Other Avoided heavy lifting. Hires help to clean house. Current Functional Impairments (Reported) Functional Limitations- ADL's Walks less than 1/2 mile. Grocery shopping is painful at the end. Functional Limitations- Mobility/Gait Walking with excessive trunk sway. Personal Factors Other Personal Factors That May Effect Lives alone. Therapy/Recovery PT-OP-C Subjective Start: 07/05/19 11:23 Freq: Status: Active Protocol: Document 07/21/19 09:02 LRN (Rec: 07/21/19 09:53 LRN [id number]) OP-PT Subjective Patient Comments Patient Comments States sat yesterday longer than usual, might have been the champagne. PT-OP-G Mobility & Gait Start: 07/05/19 11:23 Freq: Status: Active Protocol: Document 07/05/19 11:24 LRN (Rec: 07/08/19 12:41 LRN [id number]) OP Mobility Evaluation Bed Mobility Rolling Poor core control. Supine to and from Sit Pt transfers by lying or lifting trunk straight up into sitting. Transfers Sit to Stand Fair, poor hip hinging. OP Gait Assessment Gait Gait Assistance Required: Independent Able to Maintain Weight Bearing Status Yes During Gait Assistive Devices Assistive Device None Gait Deviations General Gait Pattern Decreased Stride Length, Lateral Trunk Lean Factors Limiting Gait Function Factors Limiting Gait Function Pain,Poor Balance PT-OP-H Neuro Start: 07/05/19 11:23 Freq: Status: Active Protocol: Document 07/05/19 11:24 LRN (Rec: 07/08/19 12:41 LRN [id number]) Sensation Evaluation Gross Sensation Gross Sensation WNL Deep Tendon Reflex & Clonus Assessment Deep Tendon Reflex Bilateral Achilles Deep Tendon Reflex 0 Absent Bilateral Patellar Deep Tendon Reflex 2+ Normal PT-OP-J Posture/Palpation/Skin Start: 07/05/19 11:23 Freq: Status: Active Protocol: Document 07/05/19 11:24 LRN (Rec: 07/08/19 09:46 LRN [id number]) Posture Evaluation Position Standing Evaluation View All positions L-Spine Posture Flattened,Flexed Pelvis Posture (L) Iliac Crest Superior Comments Posture Comments Flexed hips 15 deg's. L PSIS is deep. PT-OP-K Range of Motion Start: 07/05/19 11:23 Freq: Status: Active Protocol: Document 07/05/19 11:24 LRN (Rec: 07/08/19 09:46 LRN [id number]) Lumbar Spine Range of Motion Lumbar Spine Active Degrees Testing Position Standing Flexion 55 Extension 5 Lateral Flexion Left 8 Lateral Flexion Right 5 Comments With R SB there is L LBP on return to upright. Hip Goniometric Range of Motion Hip Right Passive Testing Position Supine Internal Rotation 40 External Rotation 45 Left Passive Testing Position Supine Internal Rotation 35 External Rotation 50 Hip ROM Limitations Hip ROM Limitations Pain PT-OP-L Special Tests Start: 07/05/19 11:23 Freq: Status: Active Protocol: Document 07/05/19 11:24 LRN (Rec: 07/08/19 12:37 LRN [id number]) Special Tests Lumbar Spine Special Tests Straight Leg Raise Test Results + left Comments PSLR: 70 left, 85 right. PT-OP-M Strength Start: 07/05/19 11:23 Freq: Status: Active Protocol: Document 07/05/19 11:24 LRN (Rec: 07/08/19 12:37 LRN [id number]) Hip Strength Hip Manual Muscle Testing Right Comments Generally 5/5. Left Flexion (L2) 3 Fair Comments Generally 5/5 except hip flexion above. PT-OP-Q Treatments Start: 07/05/19 11:23 Freq: Status: Active Protocol: Document 07/21/19 09:02 LRN (Rec: 07/21/19 09:53 LRN [id number]) Therapeutic Exercises Supine Exercises BKFO Supine Exercise Name BKFO w/heels together and toes moving out Resistance Lev 1 T-Band Reps/Minutes 10 x 3 Bridging Supine Exercise Name Bridging w/PF contraction every other lift Reps/Minutes 10x Prone Exercises Trunk ext Prone Exercise Name MAPNREET w/pillow under hips Reps/Minutes 10x Sitting Exercises Trunk Ext Sitting Exercise Name Active Trunk Ext over towel roll Reps/Minutes 10x Ankle DF Sitting Exercise Name Ankle DF strengthening Side bilateral Equipment Used Lev 2 T-Band Reps/Minutes 15x 2 Ankle EV Sitting Exercise Name Ankle EV strengthening Side bilateral Equipment Used Lev 2 T-Band Reps/Minutes 15 x 2 Comments Extra time taken for managing T-Band, with issuance of a 2ND T-Band. Standing Exercises Sit to Stand Standing Exercise Name Sit<->Stand Equipment Used Lev 1 T-Band Reps/Minutes 10x R lateral trunk shift Standing Exercise Name R lateral trunk shift Side right Self-Care/Home Management Treatment Education Patient Education Home Exercise Program Activities Self-Care/Home Management Activities Issued 2nd T-Band, Lev 2 of longer length, for ankle ex's. Issued & reviewed HEP: T-Band BKFO with ankle EV (sit & sup) , sitting active trunk ext, & MANPREET. PT-OP-R Modalities Start: 07/05/19 11:23 Freq: Status: Active Protocol: Document 07/18/19 09:03 LRN (Rec: 07/18/19 09:50 LRN [id number]) Electric Stimulation Electric Stimulation Interferential Current (IFC) Body Location Cross at L5-S1 and sacrum Duration (Minutes) 15 Intensity 12 Target/Sweep Sweep Patient Position Supine Combined With Heat/Cold Cold Pack Hot Pack/Cold Pack Treatment Hot Pack Location Front chest while on ice to low back Patient Position Supine Treatment Duration (minutes) 15 Patient Tolerance Good Comments Heat on during Ice/E-Stim Cold Pack Location L LB/hip Patient Position Supine Treatment Duration (minutes) 15 Patient Tolerance Good Comments Ice during E-Stim Extra layer of pt's sweatshirt and pillowcase between skin and cryotherapy. PT-OP-T Assessment and Plan Start: 07/05/19 11:23 Freq: Status: Active Protocol: Document 07/21/19 09:02 LRN (Rec: 07/21/19 09:53 LRN [id number]) Physical Therapy Assessment Goals Four Impairment Decreased functional strength of carrying objects up/down stairs. Sap Security Consultant Goal (LTG) Pt will be able to ambulate 4 steps x 2 with 3-5# weight with pain no greater than 2/10 . LTG Duration 09/16/19 Three Impairment Decreased functional mobility. Prison Goal (LTG) Pt will be feel confident in travelling by air and managing luggage by herself. LTG Duration 09/16/19 Two Impairment Decreased ability to exercise for her health (prior level walked 3 miles) Short Term Goal (STG) Pt goal with therapy is to be able to walk 3 miles ([place] in 1 hour), and handle a trip by air with luggage and stairs by self. [ End ] Sap Security Consultant Goal (LTG) Pt will be able to tolerate walking 3 miles (1 hour) on level ([place] [address] [place]) with use of walking sticks and pain no greater than 2/10. LTG Duration 09/16/19 One Impairment Pt lacks self care HEP Prison Goal (LTG) Pt will be independent in a self care HEP. LTG Duration 09/16/19 Assessment Summary Assessment Pt noted no significant change in pain with use of cryotherapy/EStim after treatment last session. Pt was able to perform MANPREET positioning with pillow under hips without pain or discomfort. She has a difficult time performing hip ER w/ankle EV and must perform them separate in order to perform them. Physical Therapy Plan Frequency and Duration Frequency of Treatment 2x/Week Plan of Care Start Date 07/05/19 Plan of Care End Date 09/16/19 Next Visit Focus/Plan Next Note Type Treatment Note Next Visit Plan Add supine or sidelie Hip AB strengthening (avoid standing due to R knee dysfunction). Gait training to progress towards SLS. Progress back rehabilitation with caution of R knee meniscus tear.
--- NOTE | 2019-07-25 11:27 | PT.OTN ---
Current Diagnoses Spinal stenosis, lumbar region with neurogenic claudication (07/25/19) Low back pain (07/25/19) Physical Therapy Treatment Note PT-OP-A Visit Information Start: 07/05/19 11:23 Freq: Status: Active Protocol: Document 07/25/19 10:38 LRN (Rec: 07/25/19 11:27 LRN [id number]) Out-Patient Physical Therapy Visit Information Visit Information Visit Type Treatment Note Visit Start Time 10:38 Visit Stop Time 11:19 Total Visit Minutes 41 Visit Number 7 Number of AIRPLANE TECHNICIAN Visits 0 Evaluation Information Evaluation Date 07/05/19 Precautions Precautions Pt reported Epidural 3 weeks ago (~06/14/19). Multilevel DDD with mild disc bulging L1 through S1 and at L5-S1 L foraminal protrusion. PT-OP-B Current Condition Start: 07/05/19 11:23 Freq: Status: Active Protocol: Document 07/05/19 11:24 LRN (Rec: 07/05/19 12:46 LRN [id number]) Current Condition History of Current Condition Onset Date 2011 epidurals, Fell Aug 2018 Current Complaints Low back pain and radiatint R LE pain. History of Current Condition Missed a step going from a boat to a smaller boat and landed on her buttocks. Was able to get up and felt a little sore, then it started to flare up. Tore R meniscus October 15, 2018 causing limping and increasing back pain. Lives alone, , single level home. Prior Treatments and Tests Per patient: Epidural in spine ~3 weeks ago that has helped a lot. X-rays @ [place]: Arthritis, DDD and stenosis. MRI @ [place] Cortisone injection in R knee, PT for knee, & 4 Hyaluronic injections (January 09, 2019), last one 02/28/19. Developmental History Developmental History Tore meniscus in the R knee. R handed. Treatment Goals Patient/Caregiver Goals Pt goal with therapy is to be able to walk 3 miles ([place] [address] [place] in 1 hour), and handle a trip by air with luggage and stairs by self. Prior Functional Status Baseline Function- ADL's Independent Baseline Function- Mobility Independent Baseline Function- Gait Able to walk 3 miles ([place] [address] [place] in 1 hour) Baseline Function- Other Avoided heavy lifting. Hires help to clean house. Current Functional Impairments (Reported) Functional Limitations- ADL's Walks less than 1/2 mile. Grocery shopping is painful at the end. Functional Limitations- Mobility/Gait Walking with excessive trunk sway. Personal Factors Other Personal Factors That May Effect Lives alone. Therapy/Recovery PT-OP-C Subjective Start: 07/05/19 11:23 Freq: Status: Active Protocol: Document 07/25/19 10:38 LRN (Rec: 07/25/19 11:27 LRN [id number]) OP-PT Subjective Patient Comments Patient Comments Less waddling. Occassional sharp pain, primarily an ache, rated 2/10. Patient Reported Progress Improving PT-OP-G Mobility & Gait Start: 07/05/19 11:23 Freq: Status: Active Protocol: Document 07/05/19 11:24 LRN (Rec: 07/08/19 12:41 LRN [id number]) OP Mobility Evaluation Bed Mobility Rolling Poor core control. Supine to and from Sit Pt transfers by lying or lifting trunk straight up into sitting. Transfers Sit to Stand Fair, poor hip hinging. OP Gait Assessment Gait Gait Assistance Required: Independent Able to Maintain Weight Bearing Status Yes During Gait Assistive Devices Assistive Device None Gait Deviations General Gait Pattern Decreased Stride Length, Lateral Trunk Lean Factors Limiting Gait Function Factors Limiting Gait Function Pain,Poor Balance PT-OP-H Neuro Start: 07/05/19 11:23 Freq: Status: Active Protocol: Document 07/05/19 11:24 LRN (Rec: 07/08/19 12:41 LRN [id number]) Sensation Evaluation Gross Sensation Gross Sensation WNL Deep Tendon Reflex & Clonus Assessment Deep Tendon Reflex Bilateral Achilles Deep Tendon Reflex 0 Absent Bilateral Patellar Deep Tendon Reflex 2+ Normal PT-OP-J Posture/Palpation/Skin Start: 07/05/19 11:23 Freq: Status: Active Protocol: Document 07/05/19 11:24 LRN (Rec: 07/08/19 09:46 LRN [id number]) Posture Evaluation Position Standing Evaluation View All positions L-Spine Posture Flattened,Flexed Pelvis Posture (L) Iliac Crest Superior Comments Posture Comments Flexed hips 15 deg's. L PSIS is deep. PT-OP-K Range of Motion Start: 07/05/19 11:23 Freq: Status: Active Protocol: Document 07/05/19 11:24 LRN (Rec: 07/08/19 09:46 LRN [id number]) Lumbar Spine Range of Motion Lumbar Spine Active Degrees Testing Position Standing Flexion 55 Extension 5 Lateral Flexion Left 8 Lateral Flexion Right 5 Comments With R SB there is L LBP on return to upright. Hip Goniometric Range of Motion Hip Right Passive Testing Position Supine Internal Rotation 40 External Rotation 45 Left Passive Testing Position Supine Internal Rotation 35 External Rotation 50 Hip ROM Limitations Hip ROM Limitations Pain PT-OP-L Special Tests Start: 07/05/19 11:23 Freq: Status: Active Protocol: Document 07/05/19 11:24 LRN (Rec: 07/08/19 12:37 LRN [id number]) Special Tests Lumbar Spine Special Tests Straight Leg Raise Test Results + left Comments PSLR: 70 left, 85 right. PT-OP-M Strength Start: 07/05/19 11:23 Freq: Status: Active Protocol: Document 07/05/19 11:24 LRN (Rec: 07/08/19 12:37 LRN [id number]) Hip Strength Hip Manual Muscle Testing Right Comments Generally 5/5. Left Flexion (L2) 3 Fair Comments Generally 5/5 except hip flexion above. PT-OP-Q Treatments Start: 07/05/19 11:23 Freq: Status: Active Protocol: Document 07/25/19 10:38 LRN (Rec: 07/25/19 11:27 LRN [id number]) Therapeutic Exercises Supine Exercises Hip AB Supine Exercise Name Alok Active & Active asst hip AB Side bilateral Equipment Used Belt to assist with mvmt Reps/Minutes 6' Comments Focus on symmetry of movement BKFO Supine Exercise Name BKFO w/heels together and toes moving out Resistance Lev 2 T-Band, ball Reps/Minutes 10 x 3 Bridging Supine Exercise Name Bridging w/PF contraction every other lift Reps/Minutes 15x Sitting Exercises Trunk Ext Sitting Exercise Name Active Trunk Ext over towel roll Reps/Minutes 10x Ankle DF Sitting Exercise Name Ankle DF strengthening Side bilateral Equipment Used Lev 2 T-Band Reps/Minutes 15x 2 Ankle EV Sitting Exercise Name Ankle EV strengthening Side bilateral Equipment Used Lev 2 T-Band Reps/Minutes 15 x 2 Comments Extra time taken for managing T-Band, with issuance of a 2ND T-Band. Standing Exercises Sit to Stand Standing Exercise Name Sit<->Stand Equipment Used Lev 1 T-Band Reps/Minutes 10x Comments W/O plopping last 6 reps R lateral trunk shift Standing Exercise Name R lateral trunk shift Side right Self-Care/Home Management Treatment Education Patient Education Home Exercise Program Activities Self-Care/Home Management Activities Issued HEP: Supine hip AB strengthening. PT-OP-R Modalities Start: 07/05/19 11:23 Freq: Status: Active Protocol: Document 07/18/19 09:03 LRN (Rec: 07/18/19 09:50 LRN [id number]) Electric Stimulation Electric Stimulation Interferential Current (IFC) Body Location Cross at L5-S1 and sacrum Duration (Minutes) 15 Intensity 12 Target/Sweep Sweep Patient Position Supine Combined With Heat/Cold Cold Pack Hot Pack/Cold Pack Treatment Hot Pack Location Front chest while on ice to low back Patient Position Supine Treatment Duration (minutes) 15 Patient Tolerance Good Comments Heat on during Ice/E-Stim Cold Pack Location L LB/hip Patient Position Supine Treatment Duration (minutes) 15 Patient Tolerance Good Comments Ice during E-Stim Extra layer of pt's sweatshirt and pillowcase between skin and cryotherapy. PT-OP-T Assessment and Plan Start: 07/05/19 11:23 Freq: Status: Active Protocol: Document 07/25/19 10:38 LRN (Rec: 07/25/19 11:27 LRN [id number]) Physical Therapy Assessment Goals Four Impairment Decreased functional strength of carrying objects up/down stairs. Income Tax Investigator Goal (LTG) Pt will be able to ambulate 4 steps x 2 with 3-5# weight with pain no greater than 2/10 . LTG Duration 09/16/19 Three Impairment Decreased functional mobility. Income Tax Investigator Goal (LTG) Pt will be feel confident in travelling by air and managing luggage by herself. LTG Duration 09/16/19 Two Impairment Decreased ability to exercise for her health (prior level walked 3 miles) Short Term Goal (STG) Pt goal with therapy is to be able to walk 3 miles ([place] [address] [place] in 1 hour), and handle a trip by air with luggage and stairs by self. [ End ] Income Tax Investigator Goal (LTG) Pt will be able to tolerate walking 3 miles (1 hour) on level ([place] [address] [place]) with use of walking sticks and pain no greater than 2/10. LTG Duration 2/28/20 One Impairment Pt lacks self care HEP [facility] Goal (LTG) Pt will be independent in a self care HEP. LTG Duration 09/16/19 Assessment Summary Assessment Much better control with stand >sit ex, no plopping. Pt able to move in supine hip AB greater motion after training. W/O a cane the pt demonstrates excessive upper body shift to the right, probably from poor TFL/Glut Med strength. Physical Therapy Plan Frequency and Duration Frequency of Treatment 2x/Week Plan of Care Start Date 07/05/19 Plan of Care End Date 09/16/19 Next Visit Focus/Plan Next Note Type Treatment Note Next Visit Plan Add Sidelie Glut Medius strengthening (avoid standing due to R knee dysfunction). Gait training to progress towards SLS. Progress back rehabilitation with caution of R knee meniscus tear.
--- NOTE | 2019-07-28 16:54 | PT.OTN ---
Current Diagnoses Spinal stenosis, lumbar region with neurogenic claudication (07/28/19) Low back pain (07/28/19) Physical Therapy Treatment Note PT-OP-A Visit Information Start: 07/05/19 11:23 Freq: Status: Active Protocol: Document 07/28/19 10:37 LRN (Rec: 07/28/19 11:24 LRN [id number]) Out-Patient Physical Therapy Visit Information Visit Information Visit Type Treatment Note Visit Start Time 10:37 Visit Stop Time 11:24 Total Visit Minutes 47 Visit Number 8 Number of ELECTROTYPE FINISHER Visits 0 Evaluation Information Evaluation Date 07/05/19 Precautions Precautions Pt reported Epidural 3 weeks ago (~06/14/19). Multilevel DDD with mild disc bulging L1 through S1 and at L5-S1 L foraminal protrusion. PT-OP-B Current Condition Start: 07/05/19 11:23 Freq: Status: Active Protocol: Document 07/05/19 11:24 LRN (Rec: 07/05/19 12:46 LRN [id number]) Current Condition History of Current Condition Onset Date 2011 epidurals, Fell Aug 2018 Current Complaints Low back pain and radiatint R LE pain. History of Current Condition Missed a step going from a boat to a smaller boat and landed on her buttocks. Was able to get up and felt a little sore, then it started to flare up. Tore R meniscus October 15, 2018 causing limping and increasing back pain. Lives alone, , single level home. Prior Treatments and Tests Per patient: Epidural in spine ~3 weeks ago that has helped a lot. X-rays @ [facility]: Arthritis, DDD and stenosis. MRI @ [facility] Cortisone injection in R knee, PT for knee, & 4 Hyaluronic injections (January 09, 2019), last one 02/28/19. Developmental History Developmental History Tore meniscus in the R knee. R handed. Treatment Goals Patient/Caregiver Goals Pt goal with therapy is to be able to walk 3 miles ([employer] [address] [place] in 1 hour), and handle a trip by air with luggage and stairs by self. Prior Functional Status Baseline Function- ADL's Independent Baseline Function- Mobility Independent Baseline Function- Gait Able to walk 3 miles ([employer] [address] [place] in 1 hour) Baseline Function- Other Avoided heavy lifting. Hires help to clean house. Current Functional Impairments (Reported) Functional Limitations- ADL's Walks less than 1/2 mile. Grocery shopping is painful at the end. Functional Limitations- Mobility/Gait Walking with excessive trunk sway. Personal Factors Other Personal Factors That May Effect Lives alone. Therapy/Recovery PT-OP-C Subjective Start: 07/05/19 11:23 Freq: Status: Active Protocol: Document 07/28/19 10:37 LRN (Rec: 07/28/19 11:24 LRN [id number]) OP-PT Subjective Patient Comments Patient Comments Sore today. Went to [facility] and stood 45'. Pain in back and knee was 3/10. Today pain at back is 1/1o and knee is 2 /10. PT-OP-G Mobility & Gait Start: 07/05/19 11:23 Freq: Status: Active Protocol: Document 07/05/19 11:24 LRN (Rec: 07/08/19 12:41 LRN [id number]) OP Mobility Evaluation Bed Mobility Rolling Poor core control. Supine to and from Sit Pt transfers by lying or lifting trunk straight up into sitting. Transfers Sit to Stand Fair, poor hip hinging. OP Gait Assessment Gait Gait Assistance Required: Independent Able to Maintain Weight Bearing Status Yes During Gait Assistive Devices Assistive Device None Gait Deviations General Gait Pattern Decreased Stride Length, Lateral Trunk Lean Factors Limiting Gait Function Factors Limiting Gait Function Pain,Poor Balance PT-OP-H Neuro Start: 07/05/19 11:23 Freq: Status: Active Protocol: Document 07/05/19 11:24 LRN (Rec: 07/08/19 12:41 LRN [id number]) Sensation Evaluation Gross Sensation Gross Sensation WNL Deep Tendon Reflex & Clonus Assessment Deep Tendon Reflex Bilateral Achilles Deep Tendon Reflex 0 Absent Bilateral Patellar Deep Tendon Reflex 2+ Normal PT-OP-J Posture/Palpation/Skin Start: 07/05/19 11:23 Freq: Status: Active Protocol: Document 07/05/19 11:24 LRN (Rec: 07/08/19 09:46 LRN [id number]) Posture Evaluation Position Standing Evaluation View All positions L-Spine Posture Flattened,Flexed Pelvis Posture (L) Iliac Crest Superior Comments Posture Comments Flexed hips 15 deg's. L PSIS is deep. PT-OP-K Range of Motion Start: 07/05/19 11:23 Freq: Status: Active Protocol: Document 07/05/19 11:24 LRN (Rec: 07/08/19 09:46 LRN [id number]) Lumbar Spine Range of Motion Lumbar Spine Active Degrees Testing Position Standing Flexion 55 Extension 5 Lateral Flexion Left 8 Lateral Flexion Right 5 Comments With R SB there is L LBP on return to upright. Hip Goniometric Range of Motion Hip Right Passive Testing Position Supine Internal Rotation 40 External Rotation 45 Left Passive Testing Position Supine Internal Rotation 35 External Rotation 50 Hip ROM Limitations Hip ROM Limitations Pain PT-OP-L Special Tests Start: 07/05/19 11:23 Freq: Status: Active Protocol: Document 07/05/19 11:24 LRN (Rec: 07/08/19 12:37 LRN [id number]) Special Tests Lumbar Spine Special Tests Straight Leg Raise Test Results + left Comments PSLR: 70 left, 85 right. PT-OP-M Strength Start: 07/05/19 11:23 Freq: Status: Active Protocol: Document 07/05/19 11:24 LRN (Rec: 07/08/19 12:37 LRN [id number]) Hip Strength Hip Manual Muscle Testing Right Comments Generally 5/5. Left Flexion (L2) 3 Fair Comments Generally 5/5 except hip flexion above. PT-OP-Q Treatments Start: 07/05/19 11:23 Freq: Status: Active Protocol: Document 07/28/19 10:37 LRN (Rec: 07/28/19 11:24 LRN [id number]) Therapeutic Exercises Supine Exercises Hip AB Supine Exercise Name Alok Active hip AB Side bilateral Reps/Minutes 3' Comments Focus on symmetry of movement BKFO Supine Exercise Name BKFO w/heels together and toes moving out Resistance Lev 2 T-Band Reps/Minutes 15 x 2 Prone Exercises Trunk ext Prone Exercise Name MANPREET Reps/Minutes 15x Sidelying Exercises Clamshell Sidelying Exercise Name TA/Clamshell Side bilateral Reps/Minutes 15x each - to fatigue Comments ECC/Conc: Assist to lift end- range. TA tightening Sidelying Exercise Name TA tightening Side bilateral Reps/Minutes 15 x 2 Sitting Exercises Trunk Ext Sitting Exercise Name Active Trunk Ext over towel roll Reps/Minutes 10x Ankle DF Sitting Exercise Name Ankle DF strengthening Side bilateral Equipment Used Lev 2 T-Band Reps/Minutes 15x 2 Ankle EV Sitting Exercise Name Ankle EV strengthening Side bilateral Equipment Used Lev 2 T-Band Reps/Minutes 15 x 2 Comments Extra time taken for managing T-Band, with issuance of a 2ND T-Band. Standing Exercises Hip Shifting Standing Exercise Name Hip shifts Side bilateral Reps/Minutes 3' Squat Standing Exercise Name Squat Reps/Minutes 15 x 2 Comments Pt squats ~45 deg's, pt not able to do lower due to knee pain. Neuro Re-Education Treatment Movement Re-Education Movement Re-education Activities Normalizing pelvic position for LE movement (Heel slide). PT-OP-R Modalities Start: 07/05/19 11:23 Freq: Status: Active Protocol: Document 07/18/19 09:03 LRN (Rec: 07/18/19 09:50 LRN [id number]) Electric Stimulation Electric Stimulation Interferential Current (IFC) Body Location Cross at L5-S1 and sacrum Duration (Minutes) 15 Intensity 12 Target/Sweep Sweep Patient Position Supine Combined With Heat/Cold Cold Pack Hot Pack/Cold Pack Treatment Hot Pack Location Front chest while on ice to low back Patient Position Supine Treatment Duration (minutes) 15 Patient Tolerance Good Comments Heat on during Ice/E-Stim Cold Pack Location L LB/hip Patient Position Supine Treatment Duration (minutes) 15 Patient Tolerance Good Comments Ice during E-Stim Extra layer of pt's sweatshirt and pillowcase between skin and cryotherapy. PT-OP-T Assessment and Plan Start: 07/05/19 11:23 Freq: Status: Active Protocol: Document 07/28/19 10:37 LRN (Rec: 07/28/19 11:24 LRN [id number]) Physical Therapy Assessment Goals Four Impairment Decreased functional strength of carrying objects up/down stairs. Senior Care Goal (LTG) Pt will be able to ambulate 4 steps x 2 with 3-5# weight with pain no greater than 2/10 . LTG Duration 09/16/19 Three Impairment Decreased functional mobility. Senior Care Goal (LTG) Pt will be feel confident in travelling by air and managing luggage by herself. LTG Duration 09/16/19 Two Impairment Decreased ability to exercise for her health (prior level walked 3 miles) Short Term Goal (STG) Pt goal with therapy is to be able to walk 3 miles ([employer] [address] [place] in 1 hour), and handle a trip by air with luggage and stairs by self. [ End ] Senior Care Goal (LTG) Pt will be able to tolerate walking 3 miles (1 hour) on level ([employer] [address] [place]) with use of walking sticks and pain no greater than 2/10. LTG Duration 09/16/19 One Impairment Pt lacks self care HEP Senior Care Goal (LTG) Pt will be independent in a self care HEP. LTG Duration 09/16/19 Assessment Summary Assessment Today pain with bridging. Pt moving legs better better symmetry with AB. Unable to strengthen sit to stand at ~70 -90 deg's knee flex due to knee pain. Pt has weakness of R Glut Med and R pelvic rotation. Physical Therapy Plan Frequency and Duration Frequency of Treatment 2x/Week Plan of Care Start Date 07/05/19 Plan of Care End Date 09/16/19 Next Visit Focus/Plan Next Note Type Treatment Note Next Visit Plan Gait training to progress towards SLS and improving gait mechanics. Progress back rehabilitation with caution of R knee meniscus tear.
--- NOTE | 2019-08-04 16:42 | PT.OTN ---
Current Diagnoses Spinal stenosis, lumbar region with neurogenic claudication (08/04/19) Low back pain (08/04/19) Physical Therapy Treatment Note PT-OP-A Visit Information Start: 07/05/19 11:23 Freq: Status: Active Protocol: Document 08/04/19 10:33 LRN (Rec: 08/04/19 11:20 LRN [id number]) Out-Patient Physical Therapy Visit Information Visit Information Visit Type Treatment Note Visit Start Time 10:33 Visit Stop Time 11:18 Total Visit Minutes 45 Visit Number 9 Number of CAR PARKER Visits 0 Evaluation Information Evaluation Date 07/05/19 Precautions Precautions Pt reported Epidural 3 weeks ago (~06/14/19). Multilevel DDD with mild disc bulging L1 through S1 and at L5-S1 L foraminal protrusion. PT-OP-B Current Condition Start: 07/05/19 11:23 Freq: Status: Active Protocol: Document 07/05/19 11:24 LRN (Rec: 07/05/19 12:46 LRN [id number]) Current Condition History of Current Condition Onset Date 2011 epidurals, Fell Aug 2018 Current Complaints Low back pain and radiatint R LE pain. History of Current Condition Missed a step going from a boat to a smaller boat and landed on her buttocks. Was able to get up and felt a little sore, then it started to flare up. Tore R meniscus October 15, 2018 causing limping and increasing back pain. Lives alone, , single level home. Prior Treatments and Tests Per patient: Epidural in spine ~3 weeks ago that has helped a lot. X-rays @ [facility]: Arthritis, DDD and stenosis. MRI @ [facility] Cortisone injection in R knee, PT for knee, & 4 Hyaluronic injections (January 09, 2019), last one 02/28/19. Developmental History Developmental History Tore meniscus in the R knee. R handed. Treatment Goals Patient/Caregiver Goals Pt goal with therapy is to be able to walk 3 miles ([employer] [address] [place] in 1 hour), and handle a trip by air with luggage and stairs by self. Prior Functional Status Baseline Function- ADL's Independent Baseline Function- Mobility Independent Baseline Function- Gait Able to walk 3 miles ([place] [address] [place] in 1 hour) Baseline Function- Other Avoided heavy lifting. Hires help to clean house. Current Functional Impairments (Reported) Functional Limitations- ADL's Walks less than 1/2 mile. Grocery shopping is painful at the end. Functional Limitations- Mobility/Gait Walking with excessive trunk sway. Personal Factors Other Personal Factors That May Effect Lives alone. Therapy/Recovery PT-OP-C Subjective Start: 07/05/19 11:23 Freq: Status: Active Protocol: Document 08/04/19 10:33 LRN (Rec: 08/04/19 11:20 LRN [id number]) OP-PT Subjective Patient Comments Patient Comments States she has been doing her Clamshell ex lifting the R leg and had a few times heard pops in hier back without pain , then the back felt great. PT-OP-G Mobility & Gait Start: 07/05/19 11:23 Freq: Status: Active Protocol: Document 07/05/19 11:24 LRN (Rec: 07/08/19 12:41 LRN [id number]) OP Mobility Evaluation Bed Mobility Rolling Poor core control. Supine to and from Sit Pt transfers by lying or lifting trunk straight up into sitting. Transfers Sit to Stand Fair, poor hip hinging. OP Gait Assessment Gait Gait Assistance Required: Independent Able to Maintain Weight Bearing Status Yes During Gait Assistive Devices Assistive Device None Gait Deviations General Gait Pattern Decreased Stride Length, Lateral Trunk Lean Factors Limiting Gait Function Factors Limiting Gait Function Pain,Poor Balance PT-OP-H Neuro Start: 07/05/19 11:23 Freq: Status: Active Protocol: Document 07/05/19 11:24 LRN (Rec: 07/08/19 12:41 LRN [id number]) Sensation Evaluation Gross Sensation Gross Sensation WNL Deep Tendon Reflex & Clonus Assessment Deep Tendon Reflex Bilateral Achilles Deep Tendon Reflex 0 Absent Bilateral Patellar Deep Tendon Reflex 2+ Normal PT-OP-J Posture/Palpation/Skin Start: 07/05/19 11:23 Freq: Status: Active Protocol: Document 07/05/19 11:24 LRN (Rec: 07/08/19 09:46 LRN [id number]) Posture Evaluation Position Standing Evaluation View All positions L-Spine Posture Flattened,Flexed Pelvis Posture (L) Iliac Crest Superior Comments Posture Comments Flexed hips 15 deg's. L PSIS is deep. PT-OP-K Range of Motion Start: 07/05/19 11:23 Freq: Status: Active Protocol: Document 07/05/19 11:24 LRN (Rec: 07/08/19 09:46 LRN [id number]) Lumbar Spine Range of Motion Lumbar Spine Active Degrees Testing Position Standing Flexion 55 Extension 5 Lateral Flexion Left 8 Lateral Flexion Right 5 Comments With R SB there is L LBP on return to upright. Hip Goniometric Range of Motion Hip Right Passive Testing Position Supine Internal Rotation 40 External Rotation 45 Left Passive Testing Position Supine Internal Rotation 35 External Rotation 50 Hip ROM Limitations Hip ROM Limitations Pain PT-OP-L Special Tests Start: 07/05/19 11:23 Freq: Status: Active Protocol: Document 07/05/19 11:24 LRN (Rec: 07/08/19 12:37 LRN [id number]) Special Tests Lumbar Spine Special Tests Straight Leg Raise Test Results + left Comments PSLR: 70 left, 85 right. PT-OP-M Strength Start: 07/05/19 11:23 Freq: Status: Active Protocol: Document 07/05/19 11:24 LRN (Rec: 07/08/19 12:37 LRN [id number]) Hip Strength Hip Manual Muscle Testing Right Comments Generally 5/5. Left Flexion (L2) 3 Fair Comments Generally 5/5 except hip flexion above. PT-OP-Q Treatments Start: 07/05/19 11:23 Freq: Status: Active Protocol: Document 08/04/19 10:33 LRN (Rec: 08/04/19 11:20 LRN [id number]) Therapeutic Exercises Supine Exercises TA/Alok Heel slides Supine Exercise Name TA/alok heel slides Reps/Minutes 15x Hip AB Supine Exercise Name Alok Active hip AB Side bilateral Equipment Used ruler & mirror Reps/Minutes 4' Comments Focus on symmetry of movement BKFO Supine Exercise Name BKFO w/heels together and toes moving out Equipment Used Ruler Reps/Minutes 15 x 1 Comments L leg rot limited by pain, focus on symmetry of movement Bridging Supine Exercise Name Bridging w/PF contraction every other lift Reps/Minutes 15x 2 Prone Exercises Trunk ext Prone Exercise Name MANPREET Reps/Minutes 15x Standing Exercises Hip Shifting Standing Exercise Name Hip shifts Side bilateral Reps/Minutes 1' Self-Care/Home Management Treatment Education Patient Education Home Exercise Program Activities Self-Care/Home Management Activities Issued & Reviewed HEP: Supine Alok heel slides. I/S pt to be diligent with proper body mechanics for LBP although she has no LBP. PT-OP-R Modalities Start: 07/05/19 11:23 Freq: Status: Active Protocol: Document 07/18/19 09:03 LRN (Rec: 07/18/19 09:50 LRN [id number]) Electric Stimulation Electric Stimulation Interferential Current (IFC) Body Location Cross at L5-S1 and sacrum Duration (Minutes) 15 Intensity 12 Target/Sweep Sweep Patient Position Supine Combined With Heat/Cold Cold Pack Hot Pack/Cold Pack Treatment Hot Pack Location Front chest while on ice to low back Patient Position Supine Treatment Duration (minutes) 15 Patient Tolerance Good Comments Heat on during Ice/E-Stim Cold Pack Location L LB/hip Patient Position Supine Treatment Duration (minutes) 15 Patient Tolerance Good Comments Ice during E-Stim Extra layer of pt's sweatshirt and pillowcase between skin and cryotherapy. PT-OP-T Assessment and Plan Start: 07/05/19 11:23 Freq: Status: Active Protocol: Document 08/04/19 10:33 LRN (Rec: 08/04/19 11:20 LRN [id number]) Physical Therapy Assessment Goals Four Impairment Decreased functional strength of carrying objects up/down stairs. Customer Solutions Coordinator Goal (LTG) Pt will be able to ambulate 4 steps x 2 with 3-5# weight with pain no greater than 2/10 . LTG Duration 09/16/19 Three Impairment Decreased functional mobility. Group Home Goal (LTG) Pt will be feel confident in travelling by air and managing luggage by herself. LTG Duration 09/16/19 Two Impairment Decreased ability to exercise for her health (prior level walked 3 miles) Short Term Goal (STG) Pt goal with therapy is to be able to walk 3 miles ([place] [address] [place] in 1 hour), and handle a trip by air with luggage and stairs by self. [ End ] Customer Solutions Coordinator Goal (LTG) Pt will be able to tolerate walking 3 miles (1 hour) on level ([employer] [address] [place]) with use of walking sticks and pain no greater than 2/10. LTG Duration 09/16/19 One Impairment Pt lacks self care HEP Group Home Goal (LTG) Pt will be independent in a self care HEP. LTG Duration 09/16/19 (08/04/19: Progressing) Assessment Summary Assessment Pt apparently self mobilized her low back during home Clamshell ex; therefore DC'd her lateral hip stretch ex from her HEP. Her pelvis is level in standing, her R shoulder is still low, no trunk shift noted. She has R inferior patellar pain when weight shifting onto her R LE, probably due to meniscus injury; therefore she needs to cont use of SPC to keep pelvis/LB stable in her new position. Pt needs to maintain proper body mechanics although she has no back pain at this time. Physical Therapy Plan Frequency and Duration Frequency of Treatment 2x/Week Plan of Care Start Date 07/05/19 Plan of Care End Date 09/16/19 Next Visit Focus/Plan Next Note Type Treatment Note Next Visit Plan Attempt Gait training to progress towards SLS and improving gait mechanics. Progress back rehabilitation for core stabilization with caution of R knee meniscus tear.
--- NOTE | 2019-08-12 15:42 | PT.OTN ---
Current Diagnoses Spinal stenosis, lumbar region with neurogenic claudication (08/12/19) Low back pain (08/12/19) Physical Therapy Treatment Note PT-OP-A Visit Information Start: 07/05/19 11:23 Freq: Status: Active Protocol: Document 08/12/19 14:22 LRN (Rec: 08/12/19 15:28 LRN [id number]) Out-Patient Physical Therapy Visit Information Visit Information Visit Type Progress Note Visit Start Time 14:22 Visit Stop Time 15:00 Total Visit Minutes 38 Visit Number 10 Number of SCHOOL SOCIAL WORKER Visits 0 Evaluation Information Evaluation Date 07/05/19 Precautions Precautions Pt reported Epidural 3 weeks ago (~06/14/19). Multilevel DDD with mild disc bulging L1 through S1 and at L5-S1 L foraminal protrusion. PT-OP-B Current Condition Start: 07/05/19 11:23 Freq: Status: Active Protocol: Document 07/05/19 11:24 LRN (Rec: 07/05/19 12:46 LRN [id number]) Current Condition History of Current Condition Onset Date 2011 epidurals, Fell Aug 2018 Current Complaints Low back pain and radiatint R LE pain. History of Current Condition Missed a step going from a boat to a smaller boat and landed on her buttocks. Was able to get up and felt a little sore, then it started to flare up. Tore R meniscus October 15, 2018 causing limping and increasing back pain. Lives alone, , single level home. Prior Treatments and Tests Per patient: Epidural in spine ~3 weeks ago that has helped a lot. X-rays @ [facility]: Arthritis, DDD and stenosis. MRI @ [facility] Cortisone injection in R knee, PT for knee, & 4 Hyaluronic injections (January 09, 2019), last one 02/28/19. Developmental History Developmental History Tore meniscus in the R knee. R handed. Treatment Goals Patient/Caregiver Goals Pt goal with therapy is to be able to walk 3 miles ([address] [place] in 1 hour), and handle a trip by air with luggage and stairs by self. Prior Functional Status Baseline Function- ADL's Independent Baseline Function- Mobility Independent Baseline Function- Gait Able to walk 3 miles ([address] [place] in 1 hour) Baseline Function- Other Avoided heavy lifting. Hires help to clean house. Current Functional Impairments (Reported) Functional Limitations- ADL's Walks less than 1/2 mile. Grocery shopping is painful at the end. Functional Limitations- Mobility/Gait Walking with excessive trunk sway. Personal Factors Other Personal Factors That May Effect Lives alone. Therapy/Recovery PT-OP-C Subjective Start: 07/05/19 11:23 Freq: Status: Active Protocol: Document 08/12/19 14:22 LRN (Rec: 08/12/19 15:28 LRN [id number]) OP-PT Subjective Patient Comments Patient Comments Back is really good, knee is acting up. Patient Reported Progress Improving Patient Questionnaires Oswestry Low Back Index Oswestry Score 17 Oswestry Impairment 1 to 19% Impaired (Score 1-19) OP-PT Pain Assessment Pain Assessment Grid Paper Pain Assessment Grid Completed Yes Location R knee Pain Location Details R knee joint Intensity 2 Scale Used Numeric (1 - 10) Patient Stated Pain Goal None. Pt seeing orthopedist Back Pain Location Details Center of the back Intensity 0 Scale Used Numeric (1 - 10) Comments Pain Comments Pt has R meniscus tear. PT-OP-G Mobility & Gait Start: 07/05/19 11:23 Freq: Status: Active Protocol: Document 08/12/19 14:22 LRN (Rec: 08/12/19 15:28 LRN [id number]) OP Gait Assessment Gait Gait Assistance Required: Independent Able to Maintain Weight Bearing Status Yes During Gait Assistive Devices Assistive Device Straight Cane Orthotic/Prosthetic Devices or Brace: No Factors Limiting Gait Function Factors Limiting Gait Function Pain,Poor Balance Comments Gait Comments Pt has known R meniscus tear. Stair Climbing Evaluation Evaluation Level of Assist On Stairs Independent Devices Stair Climbing Assistive Devices Left Railing Technique/Endurance Stair Climbing Direction Ascend and Descend Stair Climbing Technique Step Over Step,Step to Step Number of Steps Climbed 4 Stair Climbing Set # Repetitions (reps) 3 PT-OP-H Neuro Start: 07/05/19 11:23 Freq: Status: Active Protocol: Document 07/05/19 11:24 LRN (Rec: 07/08/19 12:41 LRN [id number]) Sensation Evaluation Gross Sensation Gross Sensation WNL Deep Tendon Reflex & Clonus Assessment Deep Tendon Reflex Bilateral Achilles Deep Tendon Reflex 0 Absent Bilateral Patellar Deep Tendon Reflex 2+ Normal PT-OP-J Posture/Palpation/Skin Start: 07/05/19 11:23 Freq: Status: Active Protocol: Document 07/05/19 11:24 LRN (Rec: 07/08/19 09:46 LRN [id number]) Posture Evaluation Position Standing Evaluation View All positions L-Spine Posture Flattened,Flexed Pelvis Posture (L) Iliac Crest Superior Comments Posture Comments Flexed hips 15 deg's. L PSIS is deep. PT-OP-K Range of Motion Start: 07/05/19 11:23 Freq: Status: Active Protocol: Document 07/05/19 11:24 LRN (Rec: 07/08/19 09:46 LRN [id number]) Lumbar Spine Range of Motion Lumbar Spine Active Degrees Testing Position Standing Flexion 55 Extension 5 Lateral Flexion Left 8 Lateral Flexion Right 5 Comments With R SB there is L LBP on return to upright. Hip Goniometric Range of Motion Hip Right Passive Testing Position Supine Internal Rotation 40 External Rotation 45 Left Passive Testing Position Supine Internal Rotation 35 External Rotation 50 Hip ROM Limitations Hip ROM Limitations Pain PT-OP-L Special Tests Start: 07/05/19 11:23 Freq: Status: Active Protocol: Document 07/05/19 11:24 LRN (Rec: 07/08/19 12:37 LRN [id number]) Special Tests Lumbar Spine Special Tests Straight Leg Raise Test Results + left Comments PSLR: 70 left, 85 right. PT-OP-M Strength Start: 07/05/19 11:23 Freq: Status: Active Protocol: Document 07/05/19 11:24 LRN (Rec: 07/08/19 12:37 LRN [id number]) Hip Strength Hip Manual Muscle Testing Right Comments Generally 5/5. Left Flexion (L2) 3 Fair Comments Generally 5/5 except hip flexion above. PT-OP-Q Treatments Start: 07/05/19 11:23 Freq: Status: Active Protocol: Document 08/12/19 14:22 LRN (Rec: 08/12/19 15:28 LRN [id number]) Cardio Equipment Treadmill Duration (Minutes) 14 Speed .9 Incline 0 Other Intermittent walking, last bout was 7' long Gait Training Gait Activity Stairs Description Up/down 4 steps x 2 Device Used 1 railing, carrying 4# wgt. Treatment Focus Training for carrying object during gait. Comments Extra time taken for discussion of modification to stairs (step to gt vs step over step gt). Pt most comfortable with step over step gt. Weight shifting Description Proper trunk posture w/weight shifting Level of Assistance Physical cuing Distance/Duration 4' Treatment Focus Trunk posture during walking with cane and on TM Self-Care/Home Management Treatment Education Patient Education Home Exercise Program Activities Self-Care/Home Management Activities Reviewed current HEP to adjust ex's and modify program. Extra time taken to discuss exercises and adjust program. PT-OP-R Modalities Start: 07/05/19 11:23 Freq: Status: Active Protocol: Document 07/18/19 09:03 LRN (Rec: 07/18/19 09:50 LRN [id number]) Electric Stimulation Electric Stimulation Interferential Current (IFC) Body Location Cross at L5-S1 and sacrum Duration (Minutes) 15 Intensity 12 Target/Sweep Sweep Patient Position Supine Combined With Heat/Cold Cold Pack Hot Pack/Cold Pack Treatment Hot Pack Location Front chest while on ice to low back Patient Position Supine Treatment Duration (minutes) 15 Patient Tolerance Good Comments Heat on during Ice/E-Stim Cold Pack Location L LB/hip Patient Position Supine Treatment Duration (minutes) 15 Patient Tolerance Good Comments Ice during E-Stim Extra layer of pt's sweatshirt and pillowcase between skin and cryotherapy. PT-OP-T Assessment and Plan Start: 07/05/19 11:23 Freq: Status: Active Protocol: Document 08/12/19 14:22 LRN (Rec: 08/12/19 15:28 LRN [id number]) Physical Therapy Assessment Rehab Potential Rehabilitation Potential Good Evaluation Complexity Number of Personal Factors/Comorbidities 3 or More Number of Body Systems Impaired 3 Clinical Presentation at Evaluation Evolving Impairments Impairments Activity Tolerance,Gait, Posture Goals Four Impairment Decreased functional strength of carrying objects up/down stairs. Software Support Analyst Goal (LTG) Pt will be able to ambulate 4 steps x 2 with 3-5# weight with pain no greater than 2/10 . LTG Duration 09/16/19 (08/08/19 GOAL MET. R knee pain 07/29) Three Impairment Decreased functional mobility. Fdc Goal (LTG) Pt will be feel confident in travelling by air and managing luggage by herself. LTG Duration 09/16/19 (08/12/19: Goal not met. Pt 40-50% confident can travel by air) Two Impairment Decreased ability to exercise for her health (prior level walked 3 miles) Short Term Goal (STG) Pt goal with therapy is to be able to walk 3 miles ([address] [place] in 1 hour), and handle a trip by air with luggage and stairs by self. ( 08/12/19: Weather not appropriate for walking, pt thinks she can walk the distance but would take longer .) STG Duration 08/26/19 (08/12/19: Not able to assess due inclement weather) Software Support Analyst Goal (LTG) Pt will be able to tolerate walking 3 miles (1 hour) on level ([address] [place]) with use of walking sticks and pain no greater than 2/10. ( 08/12/19 Pt able to walk without back pain, pain only at R knee) LTG Duration 09/16/19 (08/12/19: Not able to assess due inclement weather) One Impairment Pt lacks self care HEP Software Support Analyst Goal (LTG) Pt will be independent in a self care HEP. LTG Duration 09/16/19 (08/04/19: Progressing , appropriate for current level of condition) Progress Towards Goals Progress Towards Goals Progressing Toward Goals Progress Comments Goal 1: Pt has a HEP appropriate for her current level of function. Goal 2: STG & LTG: Not able to assess progress to goal due to recent inclement weather conditions. Goal 3: Progressing towards goal. Pt is 40-50% confident in goal being met. Goal 4: GOAL MET. Assessment Summary Assessment Pt has progressed well with therapy. She reports no back pain, but has not been able to assess return to prior level of activity due to inclement weather. The pt plans to try walking the next few days if weather permits. She finds her R knee is limiting her functionally due to pain and hopes to get treatment to the knee to improve the health of her back. The pt will benefit from continued therapy for recheck and progression of her HEP on an intermittent basis. Physical Therapy Plan Frequency and Duration Frequency of Treatment 1x/1-2 weeks Plan of Care Start Date 07/05/19 Plan of Care End Date 09/16/19 Therapeutic Interventions Therapeutic Interventions Balance Training,Gait Training ,Home Exercise Program, Neuromuscular Re-education, Patient/Caregiver Education, Self-Care/Home Management, Therapeutic Exercises Modalities Cold Pack/Ice Massage Next Visit Focus/Plan Next Note Type Treatment Note Next Visit Plan Assess pt's endurance and return to prior activity level of walking. Progress HEP as needed for core stabilization to improve gait mechanics and endurance, with caution of R knee meniscus tear. Add L SLS ex.
--- NOTE | 2019-09-01 16:48 | PT.OTN ---
Current Diagnoses Spinal stenosis, lumbar region with neurogenic claudication (09/01/19) Low back pain (09/01/19) Physical Therapy Treatment Note PT-OP-A Visit Information Start: 07/05/19 11:23 Freq: Status: Active Protocol: Document 09/01/19 13:43 LRN (Rec: 09/01/19 14:22 LRN [id number]) Out-Patient Physical Therapy Visit Information Visit Information Visit Type Treatment Note Visit Start Time 13:43 Visit Stop Time 14:12 Total Visit Minutes 39 Visit Number 11 Number of HAND MARKER Visits 0 Evaluation Information Evaluation Date 07/05/19 Precautions Precautions Pt reported Epidural 3 weeks ago (~06/14/19). Multilevel DDD with mild disc bulging L1 through S1 and at L5-S1 L foraminal protrusion. PT-OP-B Current Condition Start: 07/05/19 11:23 Freq: Status: Active Protocol: Document 07/05/19 11:24 LRN (Rec: 07/05/19 12:46 LRN [id number]) Current Condition History of Current Condition Onset Date 2011 epidurals, Fell Aug 2018 Current Complaints Low back pain and radiatint R LE pain. History of Current Condition Missed a step going from a boat to a smaller boat and landed on her buttocks. Was able to get up and felt a little sore, then it started to flare up. Tore R meniscus October 15, 2018 causing limping and increasing back pain. Lives alone, , single level home. Prior Treatments and Tests Per patient: Epidural in spine ~3 weeks ago that has helped a lot. X-rays @ [facility]: Arthritis, DDD and stenosis. MRI @ [facility] [place] Cortisone injection in R knee, PT for knee, & 4 Hyaluronic injections (January 09, 2019), last one 02/28/19. Developmental History Developmental History Tore meniscus in the R knee. R handed. Treatment Goals Patient/Caregiver Goals Pt goal with therapy is to be able to walk 3 miles ([address] in 1 hour), and handle a trip by air with luggage and stairs by self. Prior Functional Status Baseline Function- ADL's Independent Baseline Function- Mobility Independent Baseline Function- Gait Able to walk 3 miles ([address] in 1 hour) Baseline Function- Other Avoided heavy lifting. Hires help to clean house. Current Functional Impairments (Reported) Functional Limitations- ADL's Walks less than 1/2 mile. Grocery shopping is painful at the end. Functional Limitations- Mobility/Gait Walking with excessive trunk sway. Personal Factors Other Personal Factors That May Effect Lives alone. Therapy/Recovery PT-OP-C Subjective Start: 07/05/19 11:23 Freq: Status: Active Protocol: Document 09/01/19 13:43 LRN (Rec: 09/01/19 14:22 LRN [id number]) OP-PT Subjective Patient Comments Patient Comments States back is doing fine, knee is acting up. Will see Dr. Tyler last thu of month and can at that time have injections into the knee. Sometimes has general stiffness/soreness in the L SIJ. Patient Questionnaires Oswestry Low Back Index Oswestry Score 16 Oswestry Impairment 1 to 19% Impaired (Score 1-19) OP-PT Pain Assessment Pain Assessment Grid Paper Pain Assessment Grid Completed Yes Location R knee Pain Location Details R knee joint Intensity 4 Scale Used Numeric (1 - 10) Patient Stated Pain Goal None. Pt seeing orthopedist Back Pain Location Details Center of the back Intensity 1 Scale Used Numeric (1 - 10) PT-OP-G Mobility & Gait Start: 07/05/19 11:23 Freq: Status: Active Protocol: Document 08/12/19 14:22 LRN (Rec: 08/12/19 15:28 LRN [id number]) OP Gait Assessment Gait Gait Assistance Required: Independent Able to Maintain Weight Bearing Status Yes During Gait Assistive Devices Assistive Device Straight Cane Orthotic/Prosthetic Devices or Brace: No Factors Limiting Gait Function Factors Limiting Gait Function Pain,Poor Balance Comments Gait Comments Pt has known R meniscus tear. Stair Climbing Evaluation Evaluation Level of Assist On Stairs Independent Devices Stair Climbing Assistive Devices Left Railing Technique/Endurance Stair Climbing Direction Ascend and Descend Stair Climbing Technique Step Over Step,Step to Step Number of Steps Climbed 4 Stair Climbing Set # Repetitions (reps) 3 PT-OP-H Neuro Start: 07/05/19 11:23 Freq: Status: Active Protocol: Document 07/05/19 11:24 LRN (Rec: 07/08/19 12:41 LRN [id number]) Sensation Evaluation Gross Sensation Gross Sensation WNL Deep Tendon Reflex & Clonus Assessment Deep Tendon Reflex Bilateral Achilles Deep Tendon Reflex 0 Absent Bilateral Patellar Deep Tendon Reflex 2+ Normal PT-OP-J Posture/Palpation/Skin Start: 07/05/19 11:23 Freq: Status: Active Protocol: Document 07/05/19 11:24 LRN (Rec: 07/08/19 09:46 LRN [id number]) Posture Evaluation Position Standing Evaluation View All positions L-Spine Posture Flattened,Flexed Pelvis Posture (L) Iliac Crest Superior Comments Posture Comments Flexed hips 15 deg's. L PSIS is deep. PT-OP-K Range of Motion Start: 07/05/19 11:23 Freq: Status: Active Protocol: Document 07/05/19 11:24 LRN (Rec: 07/08/19 09:46 LRN [id number]) Lumbar Spine Range of Motion Lumbar Spine Active Degrees Testing Position Standing Flexion 55 Extension 5 Lateral Flexion Left 8 Lateral Flexion Right 5 Comments With R SB there is L LBP on return to upright. Hip Goniometric Range of Motion Hip Right Passive Testing Position Supine Internal Rotation 40 External Rotation 45 Left Passive Testing Position Supine Internal Rotation 35 External Rotation 50 Hip ROM Limitations Hip ROM Limitations Pain PT-OP-L Special Tests Start: 07/05/19 11:23 Freq: Status: Active Protocol: Document 07/05/19 11:24 LRN (Rec: 07/08/19 12:37 LRN [id number]) Special Tests Lumbar Spine Special Tests Straight Leg Raise Test Results + left Comments PSLR: 70 left, 85 right. PT-OP-M Strength Start: 07/05/19 11:23 Freq: Status: Active Protocol: Document 07/05/19 11:24 LRN (Rec: 07/08/19 12:37 LRN [id number]) Hip Strength Hip Manual Muscle Testing Right Comments Generally 5/5. Left Flexion (L2) 3 Fair Comments Generally 5/5 except hip flexion above. PT-OP-Q Treatments Start: 07/05/19 11:23 Freq: Status: Active Protocol: Document 09/01/19 13:43 LRN (Rec: 09/01/19 14:22 LRN [id number]) Therapeutic Exercises Standing Exercises Trunk rot Standing Exercise Name Trunk rot Side bilateral Reps/Minutes 30x each with 2 different T- Band positions. Comments T-Band held low/anchor at side ; T-Band High/anchor behind Abdominal strengthening Standing Exercise Name Chest press in standing with abdominal tightening Reps/Minutes 8' Comments Unable to train pt to do ex appropriately to get an abdominal contraction Self-Care/Home Management Treatment Education Patient Education Home Exercise Program Activities Self-Care/Home Management Activities Issued & Reviewed HEP: T-Band trunk rotation. Issued Lev 3 T-Band for home exercises. Extra time was taken to review pt's HEP, at length, per pt's request to decrease her HEP to primary 7-8 exercises. PT-OP-R Modalities Start: 07/05/19 11:23 Freq: Status: Active Protocol: Document 07/18/19 09:03 LRN (Rec: 07/18/19 09:50 LRN [id number]) Electric Stimulation Electric Stimulation Interferential Current (IFC) Body Location Cross at L5-S1 and sacrum Duration (Minutes) 15 Intensity 12 Target/Sweep Sweep Patient Position Supine Combined With Heat/Cold Cold Pack Hot Pack/Cold Pack Treatment Hot Pack Location Front chest while on ice to low back Patient Position Supine Treatment Duration (minutes) 15 Patient Tolerance Good Comments Heat on during Ice/E-Stim Cold Pack Location L LB/hip Patient Position Supine Treatment Duration (minutes) 15 Patient Tolerance Good Comments Ice during E-Stim Extra layer of pt's sweatshirt and pillowcase between skin and cryotherapy. PT-OP-T Assessment and Plan Start: 07/05/19 11:23 Freq: Status: Active Protocol: Document 09/01/19 13:43 LRN (Rec: 09/01/19 14:22 LRN [id number]) Physical Therapy Assessment Goals Four Impairment Decreased functional strength of carrying objects up/down stairs. Half-Way Goal (LTG) Pt will be able to ambulate 4 steps x 2 with 3-5# weight with pain no greater than 2/10 . LTG Duration 09/16/19 (08/08/19 GOAL MET. R knee pain /10) Three Impairment Decreased functional mobility. Nuclear Plant Equipment Operator Goal (LTG) Pt will be feel confident in travelling by air and managing luggage by herself. (08/12/19 : Pt 40-50% confident can travel by air.) LTG Duration 09/16/19 (09/01/19: GOAL NOT MET due to R knee pain hindering ability) Two Impairment Decreased ability to exercise for her health (prior level walked 3 miles) Short Term Goal (STG) Pt goal with therapy is to be able to walk 3 miles ([address] in 1 hour), and handle a trip by air with luggage and stairs by self. ( 08/12/19: Weather not appropriate for walking, pt thinks she can walk the distance but would take longer .) STG Duration 08/26/19 (09/01/19: Not able to assess due inclement weather) Half-Way Goal (LTG) Pt will be able to tolerate walking 3 miles (1 hour) on level ([address]) with use of walking sticks and pain no greater than 2/10. ( 08/12/19 Pt able to walk without back pain, pain only at R knee) LTG Duration 09/16/19 (09/01/19: Not able to assess due inclement weather) One Impairment Pt lacks self care HEP Nuclear Plant Equipment Operator Goal (LTG) Pt will be independent in a self care HEP. LTG Duration 09/16/19 (09/01/19: GOAL MET for current level of condition ) Assessment Summary Assessment Pt has had a positive response to therapy for her low back pain. Her R knee is what is limiting her from achieving her goals and from normalizing her functional activity. The pt is seeking further treatment for her R knee. Pt is ready for discharge to her self care HEP for her low back . Physical Therapy Plan Discharge Physical Therapy Discharge Comments Pt has met her low back goals but was not able to achieve other functional goals due to limitation from her R knee pain. Thank you for your referral.
== END 2019-09-05 13:38 ==
LOC: PHYS 13:30
PROVIDERS: PCP Physician Assistant; Visit Provider Physical Medicine & Rehabilitation Pain Medicine
DX: M48.062 Spinal stenosis, lumbar region with neurogenic claudication (principal); M54.5 Low back pain
CPT/HCPCS: 97014; 97110; 97112; 97116; 97162; 97535; G0283

== ENCOUNTER → 2020-01-06 09:22 | Outpatient (CLI) | payer MEDICARE, SELFPAY ==
[2020-01-06 11:36] LABS: Basophils Absolute Auto 0 /uL (0-100); Eosinophils Absolute Auto 100 /uL (0-450); Eosinophils Percent Auto 2.5 % (2-4); Hematocrit 41.7 % (36-46); Hemoglobin 14.5 g/dL (12.0-16.0); Lymphocytes Absolute Auto 1400 /uL (1100-4500); Lymphocytes Percent Auto 29.5 % (25-40); Mean Corpuscular HGB Conc 34.7 % (30-36); Mean Corpuscular Hemoglobin 31.8 PG (26-34); Mean Corpuscular Volume 91.7 fL (80-100); Monocytes Absolute Auto 400 /uL (0-900); Monocytes Percent Auto 7.4 % (3-14); Neutrophils Absolute Auto 2800 /uL (1500-7000); Neutrophils Percent Auto 59.6 % (50-75); Platelet Count 100 X10^3/uL (150-400); Red Blood Cell Count 4.54 X10^6/uL (4.0-5.2); Red Cell Distribution Width 13.4 % (11.6-14.8); White Blood Cell Count 4.8 X10^3/uL (4.5-11.0)
[2020-01-06 11:47] LABS: Add Manual Diff / Slide Review SLIDE REVIEW
[2020-01-06 11:52] LABS: Alanine Aminotransferase 25 IU/L (<35); Albumin 4.4 g/dL (3.5-5.0); Albumin Globulin Ratio 1.4 (1.0-2.8); Alkaline Phosphatase 68 U/L (38-126); Aspartate Aminotransferase 29 IU/L (14-36); BUN Creatinine Ratio 18.8 (6-22); Bilirubin Total 1.7 mg/dL (0.2-1.3); Blood Urea Nitrogen 15 mg/dL (7-17); Carbon Dioxide 25 mmol/L (22-32); Chloride 106 mmol/L (98-107); Cholesterol 202 mg/dL (140-199); Estimated Glomerular Filt Rate > 60.0 mL/min (>60); Globulin 3.1 g/dL (1.7-4.1); Glucose 100 mg/dL (80-110); HDL Cholesterol 65 mg/dL (40-60); HEMOLYSIS < 15 (0-50); LDL Cholesterol Calculated 116 mg/dL (<100); Potassium 4.1 mmol/L (3.4-5.1); Sodium 139 mmol/L (137-145); Total Protein 7.5 g/dL (6.3-8.2); Triglycerides 103 mg/dL (35-150)
[2020-01-06 12:02] LABS: Platelet Estimate Decreased on smear; RBC Morphology Normal Morphology
[2020-01-06 12:21] LABS: TSH w/ Reflex to FT4 0.96 uIU/mL (0.47-4.68)
== END ==
PROVIDERS: PCP Physician Assistant; Referring Provider Physician Assistant; Visit Provider Physician Assistant
DX: E03.9 Hypothyroidism, unspecified (principal); E78.5 Hyperlipidemia, unspecified
CPT/HCPCS: 36415; 80053; 80061; 84443; 85025

== ENCOUNTER → 2020-02-02 11:05 | Outpatient (CLI) | payer MEDICARE, SELFPAY ==
--- NOTE | 2020-02-02 | DI.US.S_ITS ---
PROCEDURE: US RENAL COMPLETE INDICATIONS: RENAL CYST TECHNIQUE: Real-time scanning was performed of the kidneys and bladder, with image documentation. COMPARISON: [facility], , US RENAL COMPLETE, 05/25/2019, 10:19. FINDINGS: Kidneys: Kidneys are normal in size. Right kidney measures 9.3 cm long; left kidney measures 10.6 cm long. Right renal cortical thickness is 1.3 cm; left renal cortical thickness is 1.3 cm. Renal cortical echotexture is normal. No hydronephrosis or nephrolithiasis. No suspicious solid mass lesions. There is a 1.9 cm cyst with thin internal septation at the superior anterior renal cortex on the right. A right-sided echogenic mass is not seen. On the left several cysts also are present within the cortex measuring up to 2.3 cm. Bladder: Pre-void bladder volume is 203 mL. Post-void residual is 0 mL. Pre-void images demonstrate no intraluminal masses or stones. On pre-void images, bilateral ureteral jets are noted with color Doppler interrogation. (Of note, ureteral jets may not be detectable in up to 25% of cases due to insufficient differences in specific gravity between ureteral and bladder urine). Miscellaneous: No free pelvic fluid. IMPRESSION: Bilateral renal cortical cysts, no echogenic solid mass is found at the right kidney. Based on the imaging findings of this study no follow up is recommended. Dictated by: Monty Mendez M.D. on 02/02/2020 at 13:40 Approved by: Monty Mendez M.D. on 02/02/2020 at 13:43
== END ==
PROVIDERS: PCP Physician Assistant; Referring Provider Physician Assistant; Visit Provider Physician Assistant
DX: N28.1 Cyst of kidney, acquired (principal)
CPT/HCPCS: 76770

== ENCOUNTER → 2020-02-24 15:33 | Outpatient (ROUT) | payer MEDICARE, SELFPAY ==
[2020-02-24 15:49] LABS: Alanine Aminotransferase 21 IU/L (<35); Albumin 4.2 g/dL (3.5-5.0); Albumin Globulin Ratio 1.5 (1.0-2.8); Alkaline Phosphatase 67 U/L (38-126); Aspartate Aminotransferase 25 IU/L (14-36); BUN Creatinine Ratio 20.8 (6-22); Bilirubin Total 1.7 mg/dL (0.2-1.3); Blood Urea Nitrogen 15 mg/dL (7-17); Calcium 9.8 mg/dL (8.4-10.2); Carbon Dioxide 27 mmol/L (22-32); Chloride 107 mmol/L (98-107); Estimated Glomerular Filt Rate > 60.0 mL/min (>60); Globulin 2.8 g/dL (1.7-4.1); Glucose 97 mg/dL (80-110); HEMOLYSIS < 15 (0-50); Potassium 4.1 mmol/L (3.4-5.1); Sodium 139 mmol/L (137-145)
[2020-02-24 16:06] LABS: Add Manual Diff / Slide Review NO; Basophils Absolute Auto 100 /uL (0-100); Basophils Percent Auto 1.1 % (0-2); Eosinophils Absolute Auto 100 /uL (0-450); Eosinophils Percent Auto 1.7 % (2-4); Hematocrit 41.7 % (36-46); Lymphocytes Absolute Auto 1300 /uL (1100-4500); Lymphocytes Percent Auto 24.7 % (25-40); Mean Corpuscular HGB Conc 33.5 % (30-36); Mean Corpuscular Hemoglobin 30.8 PG (26-34); Mean Corpuscular Volume 91.9 fL (80-100); Monocytes Absolute Auto 400 /uL (0-900); Monocytes Percent Auto 7.4 % (3-14); Neutrophils Absolute Auto 3500 /uL (1500-7000); Neutrophils Percent Auto 65.1 % (50-75); Red Blood Cell Count 4.53 X10^6/uL (4.0-5.2); Red Cell Distribution Width 13.2 % (11.6-14.8); White Blood Cell Count 5.4 X10^3/uL (4.5-11.0)
== END ==
PROVIDERS: PCP Physician Assistant; Visit Provider Physician Assistant
DX: Z01.818 Encounter for other preprocedural examination (principal)
CPT/HCPCS: 80053; 85025

== ENCOUNTER → 2020-04-01 13:22 | Outpatient (CLI) | payer MEDICARE, SELFPAY ==
[2020-04-02 13:18] LABS: COVID19 Sendout Not Detected (Not Detect)
== END ==
PROVIDERS: PCP Physician Assistant; Visit Provider Nurse Practitioner
DX: Z11.59 Encounter for screening for other viral diseases (principal)
CPT/HCPCS: 87635

== ENCOUNTER 2020-04-04 08:54 | Day surgery (SDC) | payer MEDICARE, SELFPAY ==
[2020-03-28 13:44] VITALS: BMI 28.7
[2020-04-04] VITALS (13 sets, daily range): BP systolic 105–146; BP diastolic 55–87; PULSE 64–102; RESP 12–18; TEMP 35.9–36.6; O2SAT 91–97; BMI 28.3
--- NOTE | 2020-04-04 | DI.RAD.S_ITS ---
PROCEDURE: XR KNEE RT 1TO2V INDICATIONS: total right knee TECHNIQUE: 2 view(s) of the knee acquired. COMPARISON: [facility], CR, XR KNEE ARTHRITIC SERIES RT, 09/12/2019, 14:07. [facility], CR, XR KNEE RT 3V, 10/15/2018, 19:38. FINDINGS: Bones: Patient is status post knee joint arthroplasty. Hardware components are in expected positions. Visualized bony structures are intact. Soft tissues: Overlying postoperative changes are noted. Skin radha are seen anteriorly. IMPRESSION: Normal postoperative examination. Dictated by: Ashvin Garcia M.D. on 04/04/2020 at 13:06 Approved by: Ashvin Garcia M.D. on 04/04/2020 at 13:06
[2020-04-04] MEDS: LACTATED RINGERS 1,000 ML 42 ML IV ×2 (09:29→13:01)
--- NOTE | 2020-04-04 10:46 | PM.PREOP ---
Pre-operative Note COVID-19 COVID-19 status: Negative Result date/Date tested (Pos, Neg/Pending): 04/02/20 Interval Note History & Physical reviewed/Exam performed by Physician: Yes Changes to H&P: No
--- NOTE | 2020-04-04 10:47 | P.OP_ITS ---
Operative Date/Time/Diagnoses Date of procedure: 04/04/20 Time of procedure: 13:19 Pre-op diagnosis: Right knee arthritis Post-op diagnosis: same Procedure & Clinicians Procedure: Right total knee arthroplasty Same procedure as scheduled: Yes Indications: The patient presents today for total knee arthroplasty after failure of conservative treatment. The nature of the procedure including the risks and benefits, alternatives, postoperative course and expected outcome were discussed and all questions answered. Consent was obtained. Operative site confirmed and marked. Surgeon: Germán Liu Director Market Research: Favio Cuevas Anesthesia Type: General, Spinal and Local Operative Notes Prosthetic devices, grafts, tissues, transplants, or devices: [employer] BCS: 5 femoral component, 3 tibial component, 9 mm BCS polyethylene tray and 29 x 7.5 mm round patella Applied: implant(s) Blood products transfused: none Tourniquet time (min): 55 Procedure in detail: The patient was taken to the operative suite and placed under anesthesia. The patient was given prophylactic antibiotics prior to surgery. The patient was also given tranexamic acid, 1 g, just prior to surgery for postoperative hemostasis. The lateral knee was prepped and the joint injected with 20 mL of 1% Lidocaine with epinephrine. The knee was then prepped and draped in usual sterile fashion. The leg was exsanguinated with an Esmarch dressing and the tourniquet raised to 250 torr. A 15 cm anterior incision was made. Next a medial trivector arthrotomy was made. The extensor mechanism was marked to ensure accurate repair. Initial exposing dissection was carried out medially and laterally. The knee was then flexed and the intramedullary femoral guide josiah placed. The distal femoral cut was made in 6? of valgus at the +0 position. The femoral size was measured and the appropriate cutting block was then placed and the anterior, posterior and chamfer cuts made. The intramedullary tibial alignment josiah was then placed. The guide was set to remove approximately 10 mm from the less affected lateral side. The proximal tibial cut was then made with an oscillating saw. All meniscus and bony debris was then removed. Posterior femoral osteophytes removed with a curved osteotome. Flexion extension gaps were checked. No specific balancing was required other than routine exposure and removal of osteophytes. The soft tissues were then injected with a combination of 20 mL of half percent Marcaine with epinephrine and 20 mL of Exparel. The trial components were then placed. The knee was then extended and the patellar thickness was measured and a cut made removing approximately 8 mm of bone. The patella was then sized and drilled. Some excess lateral bone was excised and the patellofemoral ligament released. The knee went into full extension and flexion beyond 130?. There was excellent medial-lateral balance throughout motion. Patellar tracking was excellent. The trial components were removed and the knee was cleansed with Pulsavac irrigation and dried. The final components were cemented with high viscosity vacuum mixed bone cement with antibiotics. The joint was filled with a dilute Betadine solution. The knee was held in extension and the patellar clamped until the cement was adequately cured. The knee was then irrigated. The extensor mechanism was closed with 5 interrupted #1 Vicryl sutures and a running Quill suture at approximately 90 degrees of flexion. The joint was then injected with a combination of 1 g of tranexamic acid and 20 mL of quarter percent Marcaine with epinephrine. The subcutaneous tissue was closed with 2 0 Vicryl. The skin was closed with absorbable subcuticular sutures and surgical adhesive. An Aquacel dressing and Adilson wrap were then applied. The patient tolerated the procedure well and was returned to recovery room in good condition. Complications: none Post-operative Condition: stable Disposition: PACU Plan for aftercare: [facility] Protocol.
[2020-04-04] MEDS: CLINDAMYCIN 900 MG/50 ML PIGGYBACK 50 MG IV (11:38)
--- NOTE | 2020-04-04 12:13 | SUR.OPER ---
Supine on padded OR bed. Pillow under head, arms secured on padded armboards <90 degree abduction. Safety belt across torso. Non-operative leg secured with tape over blanket over lower leg. Operative leg secured in DeMayo/John positioner. Foam padded brace at thigh of operative leg.
--- NOTE | 2020-04-04 12:13 | SUR.OPER ---
GLASSES IN LABELED BAG TO PACU WITH PATIENT
[2020-04-04] MEDS: BUPIVACAINE 0.5% W/ EPI (PF) 10 ML, TRANEXAMIC ACID 1,000 MG, SODIUM CHLORIDE 0.9% 20 ML INJ (12:20)
[2020-04-04] MEDS: BUPIVACAINE 0.5% W/ EPI (PF) 20 ML, BUPIVACAINE LIPOSOME 266 MG, SODIUM CHLORIDE 0.9% 2... INJ (12:21)
--- NOTE | 2020-04-04 14:42 | PC.NURSE ---
Patient alert, oriented, denies pain and nausea. Wiggling toes, PPP. Scd's on. Patient oriented to room and call light.
[2020-04-04] MEDS: LACTATED RINGERS 1,000 ML 100 ML IV (14:48)
[2020-04-04] MEDS: ACETAMINOPHEN 325 MG TABLET 650 MG PO ×2 (15:02→21:00)
[2020-04-04] MEDS: IBUPROFEN 400 MG TABLET PO ×2 (17:16→21:00)
[2020-04-04] MEDS: ASPIRIN EC 81 MG TABLET PO (21:00)
[2020-04-04] MEDS: DOCUSATE 100 MG CAPSULE PO (21:00)
[2020-04-05] MEDS: IBUPROFEN 400 MG TABLET PO ×3 (00:57→08:12)
[2020-04-05] MEDS: LACTATED RINGERS 1,000 ML 100 ML IV (02:32)
[2020-04-05 04:00] VITALS: BP 140/74; PULSE 62; RESP 18; TEMP 36.1; O2SAT 94
[2020-04-05] MEDS: LEVOTHYROXINE 100 MCG TABLET PO (06:07)
[2020-04-05 06:09] LABS: Hematocrit 38.4 % (36-46); Hemoglobin 12.6 g/dL (12.0-16.0)
[2020-04-05 08:00] VITALS: BP 136/73; PULSE 69; RESP 18; TEMP 36.1; O2SAT 95
[2020-04-05] MEDS: ASPIRIN EC 81 MG TABLET PO (08:12)
[2020-04-05] MEDS: DOCUSATE 100 MG CAPSULE PO (08:12)
[2020-04-05] MEDS: ACETAMINOPHEN 325 MG TABLET 650 MG PO (08:12)
--- NOTE | 2020-04-05 09:16 | P.PN_ITS ---
Subjective Subjective Date Patient Seen: 04/05/20 Time Patient Seen: 09:16 Interval history: POD #1 s/p R TKA with Dr. Liu. Patient's pain is well controlled with Tylenol and ibuprofen. No complaints this morning. She has not been up with physical therapy yet. Exam Vital Signs (past 8 hours): - 04/05/20 04:00 04/05/20 08:00 Temperature 97.0 F L 97.0 F L Pulse Rate 62 69 Respiratory Rate 18 18 Blood Pressure 140/74 136/73 Pulse Oximetry 94 95 Oxygen Delivery Method Room Air Oxygen Flow Rate 0 Narrative Exam Narrative: Patient lying in bed in no acute distress. She is alert orient x3. Balbina dressing on and functioning. She is able to actively dorsiflex abdias ntar flex. Calves are soft, compressible, nontender bilaterally. Sensation intact light touch throughout bilateral lower extremities. Dorsalis pedis pulses 2+ symmetrical. Objective Labs Result Diagrams: 04/05/20 05:05 Labs: Laboratory Results - last 24 hr 04/05/20 05:05 Hgb 12.6 Hct 38.4 Assessment & Plan Post-op Postoperative Procedures: Procedures Operation Date: 04/04/20 11:00 Actual Procedures Side Surgeon p Total Knee Arthroplasty Right Germán Liu MD Patient will mobilize with physical therapy today. Patient provided a script for tramadol as an option in case she does not want to take oxycodone while at home as her pain has been mild. Continue current pain control with Tylenol and ibuprofen. Patient is mobilizing safely she can discharge home today. Quality VTE Deep Vein Thrombosis/Pulmonary Embolism Present on Admission: No
[2020-04-05] MEDS: TRAMADOL 50 MG TABLET PO (09:43)
--- NOTE | 2020-04-05 09:50 | PT.IIE ---
Current Diagnoses Unilateral primary osteoarthritis, right knee (04/04/20) Surgery Performed Operation Date: 04/04/20 11:00 Actual Procedures p Total Knee Arthroplasty(Right) - Germán Liu MD Surgical History (Last Updated 03/28/20 @ 14:10 by Kristi Washington RN) History of colonoscopy (Acute) History of surgery on arm (Acute) Hx of bilateral cataract extraction (Acute ~2012) Hx of hemorrhoidectomy (Acute ~1976) Hx of knee surgery (Acute ~1959) S/P epidural steroid injection (Acute) Medical History (Last Updated 03/28/20 @ 14:10 by Kristi Washington RN) Chronic low back pain (Acute) DDD (degenerative disc disease) (Acute) Hearing loss (Acute) Heartburn (Acute) HLD (hyperlipidemia) (Acute) Hypothyroid (Acute) Macular degeneration of both eyes (Acute) Osteoarthritis (Acute) Seasonal allergies (Acute) Physical Therapy Inpatient Evaluation/Re-Eval M1 PT/OT-IP Prior Functional Status Start: 04/04/20 16:03 Freq: NEEDED Status: Discharge Protocol: Document 04/05/20 09:50 AW (Rec: 04/05/20 11:37 AW [email or web address]) Medical Review Prior Functional Status Medical History Reviewed Yes Communication WNL. No known deficits. Mobility and Gait Pt is independent with all functional mobility but is limited to a distance of ~2 blocks due to knee pain. Activities of Daily Living and IADL's Independent with all I/ADL's. Pt has hired cleaning assistance once every two weeks. Social History Household Members none Living Arrangements Apartment/Condo Number of Floors (Floors) One Floor Number of Stairs To Enter/Railing? Pt's duplex has level entrance . Home Environment High Toilet,Walk in Shower Home Equipment Front Wheel Walker,Four Wheel Walker,Straight Cane,Bedside Commode,Raised Toilet Seat Without Armrests,Shower Seat without Backrest,Hand Held Shower,Bed Rails,Grab Bars In Shower Employment Status Retired Additional Social History Comment Pt lives alone. Her daughter will take her home. She has hired [employer] caregivers to be with her 24/7 at discharge for up to two weeks. M2 PT-IP Current Condition Start: 04/04/20 16:03 Freq: NEEDED Status: Discharge Protocol: Document 04/05/20 09:50 AW (Rec: 04/05/20 11:37 AW [email or web address]) Physical Therapy Current Condition Current Condition Evaluation Date 04/05/20 Treatment Diagnosis R TKA; difficulty in walking Onset Date 04/04/20 Weight Bearing Status Weight Bearing Status Weight Bear as Tolerated M3 PT-IP Subjective Start: 04/04/20 16:03 Freq: NEEDED Status: Discharge Protocol: Document 04/05/20 09:50 AW (Rec: 04/05/20 11:37 AW [email or web address]) Subjective Physical Therapy Visit Type Type Initial Evaluation Visit Start Time 09:10 Visit Stop Time 09:50 Total Visit Minutes 40 Notes Pt's daughter was present throughout evaluation. Physical Therapy Visit Comments Patient Comments I hope I can go home today. Patient Goals Return to regular walking program with less pain. Therapy Pain Assessment Pain When Pain Assessed During Mobility Pain Present Pain Present Pain Reported Location R knee Intensity 4 Pain Management Techniques Apply Cold,Re-positioning, Timing of Activity with Medications M4 PT-IP Mobility and Gait Start: 04/04/20 16:03 Freq: NEEDED Status: Discharge Protocol: Document 04/05/20 09:50 AW (Rec: 04/05/20 11:37 AW [email or web address]) PT-Bed Mobility Assessment Supine to Sit Supine to Sit Standby Assistance Scooting Scooting to Edge of Bed Standby Assistance PT-Transfer Assessment Sit to and From Stand Sit to and from Stand Standby Assistance,Contact Guard Assistance,1 Person Assistance,Use of Upper Extremities Equipment Transfer Assistive Device Gait Belt,Front Wheeled Walker Transfers Transfer Destination Chair Transfer Ability Level of Assist Standby Assistance Comments Mobility Comments Pt was reclined on the bed as PT arrived. She completed bed mobility SBA and sat EOB for assessment. Sitting BP was 145 /88. After brief education and demonstration, pt completed sit to stand from bed in lowest position CGA. She then ambulated in the halls for a total of 120 feet SBA before returning to the room and transferring to the chair SBA. She rested and then completed sit <> stand SBA without need for additional cues. Pt was positioned in the chair with call light and all needs in reach. PT provided fresh ice packs for pt and answered all questions related to home mobility. Gait Assessment Gait Gait Assistance Required: Standby Assistance Distance (Feet) 120 Able to Maintain Weight Bearing Status Yes During Gait Assistive Devices Assistive Device Gait Belt,Front Wheeled Walker Orthotic/Prosthetic Devices or Brace: No Gait Deviations General Gait Pattern Antalgic,Flexed Trunk,Step-to Gait Comments Gait Comments Pt able to respond briefly to cues for hip extension and scapular retraction in gait for posture correction but quickly reverted to flexed posture. Gait pattern was antalgic but step lengths were relatively similar. Slightly decreased RLE stance time. Stair Climbing Assessment Comments Stair Climbing Comments Not assessed. No stairs at home. PT-Balance Assessment Sitting Balance and Reactions Static Sitting Balance Ability Normal Dynamic Sitting Balance Ability Normal Standing Balance and Reactions Static Standing Balance Ability Good Dynamic Standing Balance Ability Good Device Used FWW M5 PT-IP Objective Assessments Start: 04/04/20 16:03 Freq: NEEDED Status: Discharge Protocol: Document 04/05/20 09:50 AW (Rec: 04/05/20 11:37 AW [email or web address]) Orientation Orientation/Cognition Level of Alertness Alert Orientation Name,Day of Week,Place, Situation Language Function Ability No Deficits Noted Safety Awareness Understands Safety Issues Memory Description No Deficits Noted Gross Range of Motion Upper Extremity ROM Assessment Within Functional Limits Lower Extremity ROM Assessment Right Impaired Strength Upper Extremity Strength Assessment Within Functional Limits Lower Extremity Strength Assessment Right Impaired Hip 4/5 Coordination Assessment Gross Coordination Gross Coordination WNL Sensation Assessment Sensation Gross Sensation WNL Muscle Tone Muscle Tone WNL Yes M6 PT-IP Treatment Start: 04/04/20 16:03 Freq: NEEDED Status: Discharge Protocol: Document 04/05/20 09:50 AW (Rec: 04/05/20 11:37 AW [email or web address]) Physical Therapy Treatment Exercises Exercises Ankle Pumps,Gluteal Sets,Quad Sets,Heel Slides Education Education Provided Precautions,Weight Bearing Status,Post-Op Packet,Safety Other Treatments Other Treatment Performed Provided education on role of PT, plan of care, weightbearing status, and safe use of FWW. M7 PT-IP Assessment and Plan Start: 04/04/20 16:03 Freq: NEEDED Status: Discharge Protocol: Document 04/05/20 09:50 AW (Rec: 04/05/20 11:37 AW [email or web address]) PT Summary Assessment and Plan Potential Rehabilitation Potential Good Status of Condition at Evaluation Stable Summary Impairments Pain,ROM,Strength,Balance, Transfers,Gait,Activity Tolerance Assessment Summary Marcia is a 80 yo woman seen for PT evaluation on POD1 following R TKA. She is independent with all functional mobility at baseline. On evaluation, she required SBA for all mobility with FWW. She was safe and moved smoothly. She has a well -thought-out discharge plan with all needed DME at home and 24/7 caregivers for the first two weeks. Pt is safe to discharge home with assist and outpatient PT. Frequency of Treatment Frequency Of Treatment Discharge Recommendations To Nursing Amount of Assist Needed Standby Assistance Discharge Recommendations PT Discharge Recommendations Home with Assistance, Outpatient PT Transportation Needs at Discharge Private Vehicle
--- NOTE | 2020-04-05 10:11 | PC.NURSE ---
Addendum entered by Lena Marquis R.N. 04/05/20 11:21: Went over dc instructions and meds with patient and patients daughter, questions answered. Rx given for Tramadol. Patient taken via wc to vehicle driven by daughter. Patient had all belongings. Original Note: Patient alert, oriented, rates pain to right knee 2/10, walked in padilla with therapy and cleared for discharge. Given one 50mg Tramadol per pt request.
== END 2020-04-05 11:23 | disposition home or self-care (01) ==
LOC: OR 09:01 → AC 09:01
PROVIDERS: PCP Physician Assistant; Referring Provider Physician Assistant; Visit Provider Orthopaedic Surgery
PROC: 0SRC0JZ Replacement of Right Knee Joint with Synthetic Substitute, Open Approach (ICD-10-PCS; CPT 27447; principal; 2020-04-04 11:00)
DX: M17.11 Unilateral primary osteoarthritis, right knee (principal); M23.306 Other meniscus derangements, unspecified meniscus, right knee
CPT/HCPCS: 27447; 36415; 73560; 85014; 85018; 97110; 97161; C1776; C9290; J1100; J2250; J2274; J2405; J2704; J3010

== ENCOUNTER 2020-04-08 19:40 | Emergency (ER) | payer MEDICARE, SELFPAY ==
[2020-04-04 14:14] VITALS: BMI 28.3
[2020-04-08 19:55] VITALS: BP 177/71; PULSE 93; RESP 20; TEMP 37.1; O2SAT 97
--- NOTE | 2020-04-08 20:22 | DI.US.S_ITS ---
PROCEDURE: US PERIP VENOUS LOW EXTREM RT INDICATIONS: REDNESS, SWELLING POST OP TECHNIQUE: Real-time imaging, as well as color and pulse Doppler interrogation, were performed of the lower extremity deep veins from the inguinal ligament to the popliteal fossa. COMPARISON: [facility], [facility] VENOUS LOW EXTREM RT, 02/18/2019, 11:32. FINDINGS: The common femoral, femoral and popliteal veins are normally compressible, and free of intraluminal thrombus. Color and pulse Doppler demonstrate normal phasic intraluminal flow. There is normal augmentation response to distal compression maneuver. IMPRESSION: Negative for deep venous thrombosis of the right lower extremity. Dictated by: Gabe Spears M.D. on 04/08/2020 at 21:16 Approved by: Gabe Spears M.D. on 04/08/2020 at 21:16
[2020-04-08] MEDS: ACETAMINOPHEN 325 MG TABLET 650 MG PO (20:45)
[2020-04-08 20:55] LABS: Add Manual Diff / Slide Review NO; Basophils Absolute Auto 0 /uL (0-100); Basophils Percent Auto 0.5 % (0-2); Eosinophils Absolute Auto 200 /uL (0-450); Eosinophils Percent Auto 2.9 % (2-4); Hematocrit 33.6 % (36-46); Hemoglobin 11.4 g/dL (12.0-16.0); Lymphocytes Absolute Auto 1000 /uL (1100-4500); Lymphocytes Percent Auto 16.3 % (25-40); Mean Corpuscular HGB Conc 33.9 % (30-36); Mean Corpuscular Hemoglobin 30.8 PG (26-34); Mean Corpuscular Volume 90.9 fL (80-100); Monocytes Absolute Auto 500 /uL (0-900); Monocytes Percent Auto 7.7 % (3-14); Neutrophils Absolute Auto 4400 /uL (1500-7000); Neutrophils Percent Auto 72.6 % (50-75); Platelet Count 165 X10^3/uL (150-400); Red Cell Distribution Width 12.7 % (11.6-14.8); White Blood Cell Count 6.1 X10^3/uL (4.5-11.0)
--- NOTE | 2020-04-08 21:04 | ED.LOWEXIN ---
HPI - Extremity Injury (Lower) <Nini Manning, [employer] - Last Filed: 04/08/20 21:13> General Chief Complaint: Extremity Injury, Lower Stated Complaint: Red/Hot post Rt knee replacement Time Seen by Provider: 04/08/20 19:57 Source: patient and family Mode of arrival: Wheelchair Limitations: no limitations History of Present Illness HPI Narrative: The patient is a 80-year-old female former smoker who presents with a chief complaint of a red hot swollen knee after her right knee replacement. She had her surgery by Dr. Liu for total right knee on the 16th of this month. She states that today she noticed that her back of her right leg is red hot and swollen. She states that she had a temperature of 98.6?, which she states is a fever for her. Denies any nausea or vomiting or diarrhea. She states she is controlling her pain with Tylenol and Motrin. The patient and her daughter state that the redness and swelling came on suddenly today after she got off the couch for 2 hours. Patient's daughter also states that the patient is not using her incentive spirometry and would like advice on what to do. The patient denies any chest pain or shortness of breath. She states that her dressing is clean dry and intact and she note that the redness is behind her knee and on her inner thigh, not around her dressing. Related Data Home Medications Medication Instructions Recorded Confirmed PreserVision AREDS-2 1 tab PO BID 03/28/20 04/04/20 atorvastatin 40 mg PO DAILY 03/28/20 04/04/20 levothyroxine 100 mcg PO DAILY 03/28/20 04/04/20 Previous Rx's Medication Instructions Recorded aspirin 81 mg PO BID #20 tab 04/05/20 docusate sodium [DOK] 100 mg PO BID #20 cap 04/05/20 ibuprofen 400 mg PO Q4HR #20 tab 04/05/20 tramadol 50 mg PO QID PRN #30 tab 04/05/20 Allergies Allergy/AdvReac Type Severity Reaction Status Date / Time penicillin G [PENICILLIN G] Allergy Intermediate Swelling Verified 04/04/20 09:28 at injection Sulfa (Sulfonamide Allergy Intermediate Childhood Verified 04/04/20 09:28 Antibiotics) I almost [SULFA (SULFONAMIDE ANTIBIOTICS)] codeine AdvReac Severe Nausea, Verified 04/04/20 09:28 vomiting Review of Systems <ANDREW Urban - Last Filed: 04/08/20 21:13> Review of Systems Narrative: GENERAL: Denies chills, fatigue, malaise, fever, sweats. HEENT: Denies sinus pain, ear pain, sore throat, difficulty swallowing, dizziness. RESPIRATORY: Denies dyspnea, cough, wheezing, hemoptysis, sputum. CARDIOVASCULAR: Denies chest pain, palpitations, orthopnea, edema, GASTROINTESTINAL: Denies nausea, vomiting, abdominal pain, diarrhea, constipation, melena. : Denies dysuria, frequency, incontinence, hematuria, urinary retention. MUSCULOSKELETAL: See HP SKIN: See HPI NEUROLOGIC: Denies weakness, headache, numbness, change in speech, confusion, seizures, incoordination. PSYCHIATRIC: No concerning psychosocial issues. 12 point review of systems is negative except for those stated above Patient History <ANDREW Urban - Last Filed: 04/08/20 21:13> Medical History Chronic low back pain (Acute) DDD (degenerative disc disease) (Acute) Hearing loss (Acute) Heartburn (Acute) HLD (hyperlipidemia) (Acute) Hypothyroid (Acute) Macular degeneration of both eyes (Acute) Osteoarthritis (Acute) Seasonal allergies (Acute) Surgical History History of colonoscopy (Acute) History of surgery on arm (Acute) Hx of bilateral cataract extraction (Acute ~2012) Hx of hemorrhoidectomy (Acute ~1976) Hx of knee surgery (Acute ~1959) S/P epidural steroid injection (Acute) Social History household members: none Smoking Status: Former smoker alcohol intake: current Smoking Status: Former smoker alcohol intake frequency: 0-2 drinks per day Substance Use Type: does not use Exam <ANDREW Urban - Last Filed: 04/08/20 21:13> Narrative Exam Narrative: GENERAL: This is a well-nourished, well-developed patient, in no acute distress HEAD: Atraumatic. Normocephalic. No temporal or scalp tenderness. EYES: Pupils equal round and reactive. Extraocular motions intact. No scleral icterus. No injection or drainage. ENT: Nose without bleeding, purulent drainage or septal hematoma. Throat without erythema, tonsillar hypertrophy or exudate. Uvula midline. Airway patent. NECK: Trachea midline. No JVD or lymphadenopathy. Supple, nontender, no meningeal signs. CARDIOVASCULAR: Regular rate and rhythm RESPIRATORY: Diminished bilaterally to auscultation. Breath sounds equal bilaterally. No wheezes, rales, or rhonchi. No cough. No increased respiratory effort. No accessory muscle use. GASTROINTESTINAL: Abdomen soft, non-tender, nondistended. No hepato-splenomegaly, or palpable masses. No guarding. Active bowel sounds all 4 quadrants. EXTREMITIES: Right anterior knee incision dressing is clean dry intact. No erythema extending from incision, no visible drainage on dressing. Positive pedal pulses, general edema noted entire right leg. Erythema/ecchymosis noted on the inner thigh, extending the entire length of her upper thigh. BACK: Nontender without deformity or crepitance. No flank tenderness. NEURO: AOx3. SKIN: See extremity exam Initial Vital Signs Initial Vital Signs: Vital Signs Temperature 98.7 F 04/08/20 19:55 Pulse Rate 93 H 04/08/20 19:55 Respiratory Rate 20 04/08/20 19:55 Blood Pressure 177/71 H 04/08/20 19:55 Pulse Oximetry 97 04/08/20 19:55 <Robby Espinosa MD - Last Filed: 04/09/20 00:08> Initial Vital Signs Initial Vital Signs: Vital Signs Temperature 98.7 F 04/08/20 19:55 Pulse Rate 93 H 04/08/20 19:55 Respiratory Rate 20 04/08/20 19:55 Blood Pressure 177/71 H 04/08/20 19:55 Pulse Oximetry 97 04/08/20 19:55 Scores <ANDREW Urban - Last Filed: 04/08/20 21:13> GCS Liberty coma scale eye opening: Spontaneous Liberty coma scale verbal response: Orientated Whitney coma scale motor response: Obey commands Whitney coma scale total score: 15 Course <ANDREW Urban - Last Filed: 04/08/20 21:13> Course Course Narrative: The patient is a 80-year-old female who presents with a chief complaint of swelling and erythema after her knee surgery on Thursday. She appears neurovascularly intact, does have erythema/ecchymosis on the medial aspect of her knee. She denies any systemic symptoms, though states that her 98.6 degree temperature is a fever. Basic lab work was initiated to evaluate for postoperative complication, venous ultrasound ordered to rule out DVT. Patient signed out to Dr. Espinosa at 9:10 p.m. with labs and imaging pending Orders Ordered: ED Orders 04/08/20 20:22 US periph venous low extrem rt Stat 04/08/20 20:38 C-Reactive Protein Quant Stat Complete Blood Count AUTO DIFF Stat Comprehensive Metabolic Panel Stat Erythrocyte Sedimentation Rate Stat Lactate (Lactic Acid) Stat Procalcitonin Stat Discontinued Medications Acetaminophen (Tylenol) 650 mg PO NOW ONE Stop: 04/08/20 20:43 Last Admin: 04/08/20 20:45 Dose: 650 mg Documented by: ANITA Vital Signs Vital signs: Vital Signs - 8 hr 04/08/20 19:55 04/08/20 22:06 Temperature 98.7 F Pulse Rate 93 H 74 Respiratory Rate 20 18 Blood Pressure 177/71 H 160/71 H Pulse Oximetry 97 97 <Robby Espinosa MD - Last Filed: 04/09/20 00:08> Orders Ordered: ED Orders 04/08/20 20:22 perip venous low extrem rt Stat 04/08/20 20:38 C-Reactive Protein Quant Stat Complete Blood Count AUTO DIFF Stat Comprehensive Metabolic Panel Stat Erythrocyte Sedimentation Rate Stat Lactate (Lactic Acid) Stat Procalcitonin Stat Discontinued Medications Acetaminophen (Tylenol) 650 mg PO NOW ONE Stop: 04/08/20 20:43 Last Admin: 04/08/20 20:45 Dose: 650 mg Documented by: ANITA Reevaluation(s) Reevaluation #1: Reviewed results with patient and family. They are relieved that is not a blood clot. They desire discharge home. Reviewed labs with patient and family, CRP ESR nonspecific given recent surgery. White cell count normal. No fever. Not likely infectious Time: 21:46 Vital Signs Vital signs: Vital Signs - 8 hr 04/08/20 19:55 04/08/20 22:06 Temperature 98.7 F Pulse Rate 93 H 74 Respiratory Rate 20 18 Blood Pressure 177/71 H 160/71 H Pulse Oximetry 97 97 MDM - Extremity Injury (Lower) <Nini Manning, [employer] - Last Filed: 04/08/20 21:13> Lab Data Result diagrams: 04/08/20 20:38 04/08/20 20:38 Labs: Lab Results 04/08/20 04/08/20 04/08/20 Range/Units 20:38 20:38 20:38 WBC 6.1 (4.5-11.0) X10^3/uL RBC 3.70 L (4.0-5.2) X10^6/uL Hgb 11.4 L (12.0-16.0) g/dL Hct 33.6 L (36-46) % MCV 90.9 (80-100) fL MCH 30.8 (26-34) PG MCHC 33.9 (30-36) % RDW 12.7 (11.6-14.8) % Plt Count 165 (150-400) X10^3/uL Neut % (Auto) 72.6 (50-75) % Lymph % (Auto) 16.3 L (25-40) % Mobile % (Auto) 7.7 (3-14) % Eos % (Auto) 2.9 (2-4) % Baso % (Auto) 0.5 (0-2) % Neut # (Auto) 4400 (6843-8194) /uL Lymph # (Auto) 1000 L (7767-6012) /uL Mobile # (Auto) 500 (0-900) /uL Eos # (Auto) 200 (0-450) /uL Baso # (Auto) 0 (0-100) /uL ESR 35 H (0-20) MM/HR Sodium 140 (137-145) mmol/L Potassium 3.9 (3.4-5.1) mmol/L Chloride 107 (98-107) mmol/L Carbon Dioxide 28 (22-32) mmol/L BUN 17 (7-17) mg/dL Creatinine 0.83 (0.52-1.04) mg/dL Estimated GFR > 60.0 (>60) mL/min BUN/Creatinine Ratio 20.5 (6-22) Glucose 119 H (80-110) mg/dL Lactate (0.7-2.1) mmol/L Calcium 8.7 (8.4-10.2) mg/dL Total Bilirubin 1.4 H (0.2-1.3) mg/dL AST 24 (14-36) IU/L ALT 18 (<35) IU/L Alkaline Phosphatase 51 (38-126) U/L C-Reactive Protein 4.4 H (<1.0) mg/dL Total Protein 6.0 L (6.3-8.2) g/dL Albumin 3.2 L (3.5-5.0) g/dL Globulin 2.8 (1.7-4.1) g/dL Albumin/Globulin Ratio 1.1 (1.0-2.8) Procalcitonin < 0.05 (<0.5) ng/mL 04/08/20 Range/Units 20:38 WBC (4.5-11.0) X10^3/uL RBC (4.0-5.2) X10^6/uL Hgb (12.0-16.0) g/dL Hct (36-46) % MCV (80-100) fL MCH (26-34) PG MCHC (30-36) % RDW (11.6-14.8) % Plt Count (150-400) X10^3/uL Neut % (Auto) (50-75) % Lymph % (Auto) (25-40) % Mobile % (Auto) (3-14) % Eos % (Auto) (2-4) % Baso % (Auto) (0-2) % Neut # (Auto) (0396-9185) /uL Lymph # (Auto) (1378-0219) /uL Mobile # (Auto) (0-900) /uL Eos # (Auto) (0-450) /uL Baso # (Auto) (0-100) /uL ESR (0-20) MM/HR Sodium (137-145) mmol/L Potassium (3.4-5.1) mmol/L Chloride (98-107) mmol/L Carbon Dioxide (22-32) mmol/L BUN (7-17) mg/dL Creatinine (0.52-1.04) mg/dL Estimated GFR (>60) mL/min BUN/Creatinine Ratio (6-22) Glucose (80-110) mg/dL Lactate 0.8 (0.7-2.1) mmol/L Calcium (8.4-10.2) mg/dL Total Bilirubin (0.2-1.3) mg/dL AST (14-36) IU/L ALT (<35) IU/L Alkaline Phosphatase (38-126) U/L C-Reactive Protein (<1.0) mg/dL Total Protein (6.3-8.2) g/dL Albumin (3.5-5.0) g/dL Globulin (1.7-4.1) g/dL Albumin/Globulin Ratio (1.0-2.8) Procalcitonin (<0.5) ng/mL <Robby Espinosa MD - Last Filed: 04/09/20 00:08> Differential Diagnosis Differential diagnosis: Likely other (Cellulitis/DVT/dependent edema) Lab Data Attestation: I reviewed the patient's lab results. Labs: Lab Results 04/08/20 04/08/20 04/08/20 Range/Units 20:38 20:38 20:38 WBC 6.1 (4.5-11.0) X10^3/uL RBC 3.70 L (4.0-5.2) X10^6/uL Hgb 11.4 L (12.0-16.0) g/dL Hct 33.6 L (36-46) % MCV 90.9 (80-100) fL MCH 30.8 (26-34) PG MCHC 33.9 (30-36) % RDW 12.7 (11.6-14.8) % Plt Count 165 (150-400) X10^3/uL Neut % (Auto) 72.6 (50-75) % Lymph % (Auto) 16.3 L (25-40) % Mobile % (Auto) 7.7 (3-14) % Eos % (Auto) 2.9 (2-4) % Baso % (Auto) 0.5 (0-2) % Neut # (Auto) 4400 (6488-4752) /uL Lymph # (Auto) 1000 L (6178-6442) /uL Mobile # (Auto) 500 (0-900) /uL Eos # (Auto) 200 (0-450) /uL Baso # (Auto) 0 (0-100) /uL ESR 35 H (0-20) MM/HR Sodium 140 (137-145) mmol/L Potassium 3.9 (3.4-5.1) mmol/L Chloride 107 (98-107) mmol/L Carbon Dioxide 28 (22-32) mmol/L BUN 17 (7-17) mg/dL Creatinine 0.83 (0.52-1.04) mg/dL Estimated GFR > 60.0 (>60) mL/min BUN/Creatinine Ratio 20.5 (6-22) Glucose 119 H (80-110) mg/dL Lactate (0.7-2.1) mmol/L Calcium 8.7 (8.4-10.2) mg/dL Total Bilirubin 1.4 H (0.2-1.3) mg/dL AST 24 (14-36) IU/L ALT 18 (<35) IU/L Alkaline Phosphatase 51 (38-126) U/L C-Reactive Protein 4.4 H (<1.0) mg/dL Total Protein 6.0 L (6.3-8.2) g/dL Albumin 3.2 L (3.5-5.0) g/dL Globulin 2.8 (1.7-4.1) g/dL Albumin/Globulin Ratio 1.1 (1.0-2.8) Procalcitonin < 0.05 (<0.5) ng/mL 04/08/20 Range/Units 20:38 WBC (4.5-11.0) X10^3/uL RBC (4.0-5.2) X10^6/uL Hgb (12.0-16.0) g/dL Hct (36-46) % MCV (80-100) fL MCH (26-34) PG MCHC (30-36) % RDW (11.6-14.8) % Plt Count (150-400) X10^3/uL Neut % (Auto) (50-75) % Lymph % (Auto) (25-40) % Mobile % (Auto) (3-14) % Eos % (Auto) (2-4) % Baso % (Auto) (0-2) % Neut # (Auto) (3024-0322) /uL Lymph # (Auto) (5584-1683) /uL Mobile # (Auto) (0-900) /uL Eos # (Auto) (0-450) /uL Baso # (Auto) (0-100) /uL ESR (0-20) MM/HR Sodium (137-145) mmol/L Potassium (3.4-5.1) mmol/L Chloride (98-107) mmol/L Carbon Dioxide (22-32) mmol/L BUN (7-17) mg/dL Creatinine (0.52-1.04) mg/dL Estimated GFR (>60) mL/min BUN/Creatinine Ratio (6-22) Glucose (80-110) mg/dL Lactate 0.8 (0.7-2.1) mmol/L Calcium (8.4-10.2) mg/dL Total Bilirubin (0.2-1.3) mg/dL AST (14-36) IU/L ALT (<35) IU/L Alkaline Phosphatase (38-126) U/L C-Reactive Protein (<1.0) mg/dL Total Protein (6.3-8.2) g/dL Albumin (3.5-5.0) g/dL Globulin (1.7-4.1) g/dL Albumin/Globulin Ratio (1.0-2.8) Procalcitonin (<0.5) ng/mL Imaging Data US - DVT: Radiologist's Impression: [place] [address] Ultrasound Report Signed Patient: Marcia Mayo BMR#: [id number] : 2Acct:[id number] Age/Sex: 80 / FDate of Service: 04/08/20 Loc: ED Accession Number: [id number] Procedure: [facility] venous low extrem rt Ordering Provider: Nini Manning PROCEDURE: [facility] VENOUS LOW EXTREM RT INDICATIONS: REDNESS, SWELLING POST OP TECHNIQUE: Real-time imaging, as well as color and pulse Doppler interrogation, were performed of the lower extremity deep veins from the inguinal ligament to the popliteal fossa. COMPARISON: [facility], PERIP VENOUS LOW EXTREM RT, 02/18/2019, 11:32. FINDINGS: The common femoral, femoral and popliteal veins are normally compressible, and free of intraluminal thrombus. Color and pulse Doppler demonstrate normal phasic intraluminal flow. There is normal augmentation response to distal compression maneuver. IMPRESSION: Negative for deep venous thrombosis of the right lower extremity. Dictated by: Gabe Spears M.D. on 04/08/2020 at 21:16 Approved by: Gabe Spears M.D. on 04/08/2020 at 21:16 [facility] Narrative Medical decision making narrative: Appropriate for discharge home. Likely dependent edema from surgery. Discoloration in the right inner thigh likely due to postsurgical fluid shift from the knee given that patient has been sitting in a recliner with feet elevated. Discharge Plan Departure Patient Disposition: Home Clinical Impression: Dependent edema Discharge Date/Time: 04/08/20 22:06 Activity Restrictions/Additional Instructions: Call your orthopedic office tomorrow morning to inform of your visit here today. See your orthopedic doctor as scheduled. Return if worse. Return if any questions or concerns Prescriptions: No Action PreserVision AREDS-2 [id number] Capsule 1 tab PO BID RF: 0 atorvastatin 40 mg Tablet 40 mg PO DAILY RF: 0 levothyroxine 100 mcg Tablet 100 mcg PO DAILY RF: 0 tramadol 50 mg Tablet 50 mg PO QID PRN (Reason: Pain, Moderate (4-6)) Qty: 30 RF: 0 docusate sodium [DOK] 100 mg Capsule 100 mg PO BID Qty: 20 RF: 0 aspirin 81 mg Tablet,Delayed Release (Dr/Ec) 81 mg PO BID Qty: 20 RF: 0 ibuprofen 400 mg Tablet 400 mg PO Q4HR Qty: 20 RF: 0 Referrals: Symone Landrum PA-C [Primary Care Provider] - <Robby Espinosa MD - Last Filed: 04/09/20 00:08> [facility]: I was immediately available in the department for consultation. This documentation has been reviewed and I agree with assessment and plan. Supervised by Robby Espinosa MD
[2020-04-08 21:05] LABS: Lactate (Lactic Acid) 0.8 mmol/L (0.7-2.1)
[2020-04-08 21:07] LABS: Alanine Aminotransferase 18 IU/L (<35); Albumin 3.2 g/dL (3.5-5.0); Albumin Globulin Ratio 1.1 (1.0-2.8); Alkaline Phosphatase 51 U/L (38-126); Aspartate Aminotransferase 24 IU/L (14-36); BUN Creatinine Ratio 20.5 (6-22); Bilirubin Total 1.4 mg/dL (0.2-1.3); Blood Urea Nitrogen 17 mg/dL (7-17); C-Reactive Protein Quant 4.4 mg/dL (<1.0); Calcium 8.7 mg/dL (8.4-10.2); Carbon Dioxide 28 mmol/L (22-32); Chloride 107 mmol/L (98-107); Estimated Glomerular Filt Rate > 60.0 mL/min (>60); Globulin 2.8 g/dL (1.7-4.1); Glucose 119 mg/dL (80-110); HEMOLYSIS < 15 (0-50); Potassium 3.9 mmol/L (3.4-5.1); Sodium 140 mmol/L (137-145)
[2020-04-08 21:19] LABS: Procalcitonin < 0.05 ng/mL (<0.5)
[2020-04-08 21:36] LABS: Erythrocyte Sedimentation Rate 35 MM/HR (0-20)
[2020-04-08 22:06] VITALS: BP 160/71; PULSE 74; RESP 18; O2SAT 97
== END 2020-04-08 22:06 | disposition home or self-care (01) ==
PROVIDERS: Nurse Practitioner Family; Emergency Provider Emergency Medicine; PCP Physician Assistant
DX: Z98.890 Other specified postprocedural states (principal); R60.9 Edema, unspecified
CPT/HCPCS: 80053; 83605; 84145; 85025; 85651; 86140; 93971; 99283; 99284

== ENCOUNTER → 2020-08-17 12:52 | Outpatient (CLI) | payer MEDICARE, SELFPAY ==
[2020-04-04 14:14] VITALS: BMI 28.3
[2020-08-17] MEDS: COVID-19 VACC #1, MRNA(MOD) 100 MCG/0.5 ML VIAL IM (12:58)
== END ==
PROVIDERS: PCP Physician Assistant; Visit Provider Internal Medicine
DX: Z23 Encounter for immunization (principal)
CPT/HCPCS: 0011A; 91301

== ENCOUNTER → 2020-09-14 13:46 | Outpatient (CLI) | payer MEDICARE, SELFPAY ==
[2020-04-04 14:14] VITALS: BMI 28.3
[2020-09-14] MEDS: COVID-19 VACC #2, MRNA(MOD) 100 MCG/0.5 ML VIAL IM (13:53)
== END ==
PROVIDERS: PCP Physician Assistant; Visit Provider Internal Medicine
DX: Z23 Encounter for immunization (principal)
CPT/HCPCS: 0012A; 91301

== ENCOUNTER 2020-12-13 14:15 | Outpatient (RCR) | payer MEDICARE, SELFPAY ==
[2020-04-04 14:14] VITALS: BMI 28.3
--- NOTE | 2020-10-30 16:56 | PT.OIE ---
Current Diagnoses Unilateral primary osteoarthritis, right knee (10/30/20) Radiculopathy, lumbar region (10/30/20) Muscle weakness (generalized) (10/30/20) Unsteadiness on feet (10/30/20) Abnormal posture (10/30/20) Past Medical History (Last Reviewed 04/08/20 @ 21:06 by ANDREW Urban) Chronic low back pain DDD (degenerative disc disease) Hearing loss Heartburn HLD (hyperlipidemia) Hypothyroid Macular degeneration of both eyes Osteoarthritis Seasonal allergies Past Surgical History (Last Reviewed 04/08/20 @ 21:06 by ANDREW Urban) History of colonoscopy History of surgery on arm Hx of bilateral cataract extraction (~2012) Hx of hemorrhoidectomy (~1976) Hx of knee surgery (~1959) S/P epidural steroid injection Visit Care Team Role Provider Type Symone Landrum PA-C Family Provider Non-Staff Primary Care Provider Specialty: Internal Medicine Address: [address] [place] [address], [address] Email: [email or web address] Provider Physician Referring Provider Specialty: Orthopedic Surgery Address: [address] [place] [address], [phone] Email: [email or web address] Physical Therapy Initial Evaluation PT-OP-A Visit Information Start: 10/26/20 17:49 Freq: Status: Active Protocol: Document 10/30/20 10:19 LRN (Rec: 10/30/20 11:22 LRN [id number]) Out-Patient Physical Therapy Visit Information Visit Information Visit Type Initial Evaluation Visit Start Time 10:19 Visit Stop Time 11:21 Total Visit Minutes 62 Visit Number 1 Evaluation Information Evaluation Date 10/30/20 Precautions Precautions Chronic LBP, DDD, OA PT-OP-B Current Condition Start: 10/26/20 17:49 Freq: Status: Active Protocol: Document 10/30/20 10:19 LRN (Rec: 10/30/20 11:22 LRN [id number]) Current Condition History of Current Condition Onset Date 04/04/21 Current Complaints R knee weak, LBP, difficulty with stair ambulation. History of Current Condition Pt reports pain in the R knee from the muscles, not the joint. 10/16/20 f/u appointment with surgeon decided more PT was needed as well as PT for low back pain. The pt is not satisfied with way she walks, her LBP and she is having trouble with stair ambulation. Has some R knee pain with stair and doesn 't feel confident with the strength of the knee. She states she finds herself dragging the R foot and finds the outside of the R foot catching on things. States she has arthritis, stenosis and degenerating discs of the low back. Prior Treatments and Tests See above for R TKA rehab timeframe. PT for LBP prior to R TKA surgery with good results. Saw Dr. Jaramillo for the back and had a cortisone injection a year ago and helped with back for a lttle while. Developmental History Developmental History R TKA surgery 04/04/21 with rehabilitation from 04/[address] [facility] with good results. Treatment Goals Patient/Caregiver Goals Strengthening of the R knee, HEP that makes her feel like she is progressing. Wants to improve the way she walks and be able to walk [employer] in just over an hour. Decreasing LBP Improving stair ambulation steadiness/safety feeling, Prior Functional Status Baseline Function- ADL's Independent Baseline Function- Mobility Independent Baseline Function- Gait Was not able to do long walks just prior to R TKA surgery. Baseline Function- Work/School Walk level trails ([employer] [place]) in just over an hour. Walked 3-4x/week. Baseline Function- Recreation/Hobbies Used and stationary exercise bike 2x/week. Current Functional Impairments (Reported) Functional Limitations- ADL's Walks outside on trails with 4WW. Walks in the home without assist device. Functional Limitations- Mobility/Gait 1.5 hours to walk the 2 miles on [place]. 4x in the past 2.5 weeks. Able to do 1 step at home without difficulty, but with pain sometimes. Functional Limitations- Recreation/ Uses and stationary exercise Hobbies bike 2x/week. Personal Factors Other Personal Factors That May Effect Lives alone, history of LBP Therapy/Recovery with DDD. PT-OP-C Subjective Start: 10/26/20 17:49 Freq: Status: Active Protocol: Document 10/30/20 10:19 LRN (Rec: 10/30/20 11:22 LRN [id number]) Patient Questionnaires Lower Extremity Functional Scale LEFS Score 29 LEFS Impairment 60 to 79% Impaired (Score 17- 31) OP-PT Pain Assessment Pain Assessment Grid Paper Pain Assessment Grid Completed Yes Location R knee Pain Location Details Anterior and sometimes lateral R knee Intensity 4 Scale Used Numeric (0 - 10) Frequency Intermittent Back Pain Location Details Bilateral Low Back Intensity 5 Scale Used Numeric (0 - 10) Frequency Intermittent PT-OP-E Functional Tests Start: 10/26/20 17:49 Freq: Status: Active Protocol: Document 10/30/20 10:19 LRN (Rec: 10/30/20 11:22 LRN [id number]) Functional Tests Five Times Sit to Stand Test Score 27.26 secs Comments On in room chair without use of UE's (norm: 70-79 yo, 12.6 secs) PT-OP-G Mobility & Gait Start: 10/26/20 17:49 Freq: Status: Active Protocol: Document 10/30/20 10:19 LRN (Rec: 10/30/20 11:22 LRN [id number]) OP Gait Assessment Gait Gait Assistance Required: Independent Able to Maintain Weight Bearing Status Yes During Gait Assistive Devices Assistive Device None Gait Deviations General Gait Pattern Flexed Trunk,Lateral Trunk Lean Comments Gait Comments Gait speed without use of assistive device on level is 20' in 8.7 secs = 2.29 ft/sec PT-OP-H Neuro Start: 10/26/20 17:49 Freq: Status: Active Protocol: Document 10/30/20 10:19 LRN (Rec: 10/30/20 11:22 LRN [id number]) Sensation Evaluation Comments Summary Comments Pt R LE is was normal to soft touch except in the lateral aspect of the R knee. PT-OP-J Posture/Palpation/Skin Start: 10/26/20 17:49 Freq: Status: Active Protocol: Document 10/30/20 10:19 LRN (Rec: 10/30/20 11:22 LRN [id number]) Posture Evaluation Position Standing L-Spine Posture Shifted Right Shoulder Posture (L) Elevated Pelvis Posture Anteriorly Tilted,(L) ASIS Posterior Knee Posture (L) Genu Valgus,(R) Genu Valgus Comments Posture Comments R LE swollen, FB hips 22 deg's . PT-OP-K Range of Motion Start: 10/26/20 17:49 Freq: Status: Active Protocol: Document 10/30/20 10:19 LRN (Rec: 10/30/20 11:22 LRN [id number]) Lumbar Spine Range of Motion Lumbar Spine Active Degrees Testing Position Standing Flexion 53 ROM Limitations Pain Comments Extension lacks 10 deg's, Active ext: Lacks 5 deg's. Knee Goniometric Range of Motion Knee Left Knee ROM WFL Yes Patient Position Supine Flexion Active (degrees) 130 Extension Active (degrees) 0 Right Patient Position Supine Flexion Active (degrees) 120 Extension Active (degrees) 0 PT-OP-L Special Tests Start: 10/26/20 17:49 Freq: Status: Active Protocol: Document 10/30/20 10:19 LRN (Rec: 10/30/20 11:22 LRN [id number]) Special Tests Lumbar Spine Special Tests Straight Leg Raise Test Results R LE: Negative Comments 80 deg's lift with Hamstring tightness PT-OP-M Strength Start: 10/26/20 17:49 Freq: Status: Active Protocol: Document 10/30/20 10:19 LRN (Rec: 10/30/20 11:22 LRN [id number]) Trunk Strength Trunk Manual Muscle Testing Testing Position Supine Core Stabilization Poor core stabilization with MMT of LE's. Hip Strength Hip Manual Muscle Testing Right Flexion (L2) 3+ Fair+ Abduction 3- Fair- Adduction 2 Poor Left Flexion (L2) 3 Fair Abduction 3- Fair- Adduction 2- Poor- Knee Strength Knee Manual Muscle Testing Left Flexion (S2) 5 Normal Extension (L3) 5 Normal Right Flexion (S2) 5 Normal Extension (L3) 5 Normal PT-OP-Q Treatments Start: 10/26/20 17:49 Freq: Status: Active Protocol: Document 10/30/20 10:19 LRN (Rec: 10/30/20 11:22 LRN [id number]) Therapeutic Exercises Standing Exercises Hip flexor stretch Standing Exercise Name Hip Flexor stretch with hands on wall Side bilateral Reps/Minutes 6' Comments Extra time needed for proper positioning and awareness of stretch and rest Self-Care/Home Management Treatment Education Other Education Discussed results of evaluation, goals & plan of care and timeframe, pt agreeable. Activities Self-Care/Home Management Activities Issued & reviewed HEP: Iliopsoas stretch in standing. PT-OP-T Assessment and Plan Start: 10/26/20 17:49 Freq: Status: Active Protocol: Document 10/30/20 10:19 LRN (Rec: 10/30/20 11:22 LRN [id number]) Physical Therapy Assessment Rehab Potential Rehabilitation Potential Good Evaluation Complexity Number of Personal Factors/Comorbidities 1-2 Number of Body Systems Impaired 4 or More Clinical Presentation at Evaluation Evolving Impairments Impairments Activity Tolerance,Functional Activities,Functional Mobility ,Gait,Pain,Posture,ROM, Strength Goals Four Impairment Decreased ability to ambulate stairs due to fear of falling. Short Term Goal (STG) Improve R knee AROM STG Duration 11/28/20 Mcfp Goal (LTG) Pt will be able to ambulate a flight of stairs with railing 90 % confidently. LTG Duration 12/29/20 Three Impairment Decreased speed of gait (2.29 ft/sec). Short Term Goal (STG) Pt will demonstrate improved walking speed of 3-3.89 ft/sec (norm for women in 70's: maximal is 3.89 ft/secs, preferred is 2.79 ft/secs). STG Duration 11/28/20 Building Custodian Goal (LTG) Pt will be able to walk [employer] in less than 2. 5 hours or just over an hour. LTG Duration 12/29/20 Two Impairment LBP limiting lifting ability Short Term Goal (STG) Pt will be educated in proper body mechanics with emphasis on lifting. STG Duration 11/09/20 Mcfp Goal (LTG) Pt will be able to carry 2-3# or 2 light bags of groceries without last low back pain. LTG Duration 12/29/20 One Impairment Pt lacks appropriate self care HEP. Mcfp Goal (LTG) Pt will be independent in a self care HEP. LTG Duration 12/29/20 Assessment Summary Assessment Pt is a 80 yo female who presents with functional weakness of the R knee with stair ambulation and poor posture and back pain. She demonstrates decreased endurance per 5XSTS of 27.26 secs, (norm: 70-79 yo, 12.6 secs) limiting her function and ability to maintain her health through exercise. She has mechanical and soft tissue dysfunction of the lumbar spine due to decreased trunk and hip extension mobility. The pt will benefit from skilled physical therapy to improve her functional ability , improve LE strength and mobility to improve gait on stairs and level for safety with gait Physical Therapy Plan Frequency and Duration Frequency of Treatment 1x/Week Plan of Care Start Date 10/30/20 Plan of Care End Date 12/29/20 Therapeutic Interventions Therapeutic Interventions Gait Training,Home Exercise Program,Joint Mobilizations, Manual Therapy,Neuromuscular Re-education,Patient/Caregiver Education,Self-Care/Home Management,Soft Tissue Mobilization,Therapeutic Exercises Modalities Cold Pack/Ice Massage,Electric Stimulation,Hot Packs, Ultrasound Next Visit Focus/Plan Next Note Type Treatment Note Next Visit Plan HEP, ROM, Strengthening, gait training. Pt may require extended therapy due to chronicity of condition and comorbidities that may hinder her progress.
--- NOTE | 2020-10-30 16:57 | PT.OPPOC ---
Physical, Occupational & Speech Therapy At [facility] Current Diagnoses Unilateral primary osteoarthritis, right knee (10/30/20) Radiculopathy, lumbar region (10/30/20) Muscle weakness (generalized) (10/30/20) Unsteadiness on feet (10/30/20) Abnormal posture (10/30/20) Visit Care Team Role Provider Type Symone Landrum PA-C Family Provider Non-Staff Primary Care Provider Specialty: Internal Medicine Address: [address] [place] [address], [phone] Email: [email or web address] Annie Germán Liu MD Attending Provider Physician Referring Provider Specialty: Orthopedic Surgery Address: [address] [place] [address], [address] Email: [email or web address] Plan Of Care PT-OP-T Assessment and Plan Start: 10/26/20 17:49 Freq: Status: Active Protocol: Document 10/30/20 10:19 LRN (Rec: 10/30/20 11:22 LRN [id number]) Physical Therapy Assessment Rehab Potential Rehabilitation Potential Good Evaluation Complexity Number of Personal Factors/Comorbidities 1-2 Number of Body Systems Impaired 4 or More Clinical Presentation at Evaluation Evolving Impairments Impairments Activity Tolerance,Functional Activities,Functional Mobility ,Gait,Pain,Posture,ROM, Strength Goals Four Impairment Decreased ability to ambulate stairs due to fear of falling. Short Term Goal (STG) Improve R knee AROM STG Duration 11/28/20 Alf Goal (LTG) Pt will be able to ambulate a flight of stairs with railing 90 % confidently. LTG Duration 12/29/20 Three Impairment Decreased speed of gait (2.29 ft/sec). Short Term Goal (STG) Pt will demonstrate improved walking speed of 3-3.89 ft/sec (norm for women in 70's: maximal is 3.89 ft/secs, preferred is 2.79 ft/secs). STG Duration 11/28/20 Insurance Sales Specialist Goal (LTG) Pt will be able to walk [employer] in less than 2. 5 hours or just over an hour. LTG Duration 12/29/20 Two Impairment LBP limiting lifting ability Short Term Goal (STG) Pt will be educated in proper body mechanics with emphasis on lifting. STG Duration 11/09/20 Insurance Sales Specialist Goal (LTG) Pt will be able to carry 2-3# or 2 light bags of groceries without last low back pain. LTG Duration 12/29/20 One Impairment Pt lacks appropriate self care HEP. Insurance Sales Specialist Goal (LTG) Pt will be independent in a self care HEP. LTG Duration 12/29/20 Assessment Summary Assessment Pt is a 80 yo female who presents with functional weakness of the R knee with stair ambulation and poor posture and back pain. She demonstrates decreased endurance per 5XSTS of 27.26 secs, (norm: 70-79 yo, 12.6 secs) limiting her function and ability to maintain her health through exercise. She has mechanical and soft tissue dysfunction of the lumbar spine due to decreased trunk and hip extension mobility. The pt will benefit from skilled physical therapy to improve her functional ability , improve LE strength and mobility to improve gait on stairs and level for safety with gait Physical Therapy Plan Frequency and Duration Frequency of Treatment 1x/Week Plan of Care Start Date 10/30/20 Plan of Care End Date 12/29/20 Therapeutic Interventions Therapeutic Interventions Gait Training,Home Exercise Program,Joint Mobilizations, Manual Therapy,Neuromuscular Re-education,Patient/Caregiver Education,Self-Care/Home Management,Soft Tissue Mobilization,Therapeutic Exercises Modalities Cold Pack/Ice Massage,Electric Stimulation,Hot Packs, Ultrasound Next Visit Focus/Plan Next Note Type Treatment Note Next Visit Plan HEP, ROM, Strengthening, gait training. Pt may require extended therapy due to chronicity of condition and comorbidities that may hinder her progress. Plan of Care Dates Plan of Care Start Date 10/30/20 Plan of Care End Date 01/28/21 Electronically Signed by: Maria Luisa Recinos, PT 10/30/20 5050 Please Sign and Return: I have reviewed this Plan of Care and certify that the skilled therapy services above are required to meet the patient?s needs. Physician Signature Date Printed Name and Credentials Clinical Instructor Signature Printed Name and Credentials
--- NOTE | 2020-11-06 16:45 | PT.OTN ---
Current Diagnoses Unilateral primary osteoarthritis, right knee (11/06/20) Radiculopathy, lumbar region (11/06/20) Muscle weakness (generalized) (11/06/20) Unsteadiness on feet (11/06/20) Abnormal posture (11/06/20) Physical Therapy Treatment Note PT-OP-A Visit Information Start: 10/26/20 17:49 Freq: Status: Active Protocol: Document 11/06/20 14:20 LRN (Rec: 11/06/20 15:08 LRN [id number]) Out-Patient Physical Therapy Visit Information Visit Information Visit Type Treatment Note Visit Start Time 14:20 Visit Stop Time 15:07 Total Visit Minutes 47 Visit Number 2 Evaluation Information Evaluation Date 10/30/20 Precautions Precautions Chronic LBP, DDD, OA PT-OP-B Current Condition Start: 10/26/20 17:49 Freq: Status: Active Protocol: Document 10/30/20 10:19 LRN (Rec: 10/30/20 11:22 LRN [id number]) Current Condition History of Current Condition Onset Date 04/04/21 Current Complaints R knee weak, LBP, difficulty with stair ambulation. History of Current Condition Pt reports pain in the R knee from the muscles, not the joint. 10/16/20 f/u appointment with surgeon decided more PT was needed as well as PT for low back pain. The pt is not satisfied with way she walks, her LBP and she is having trouble with stair ambulation. Has some R knee pain with stair and doesn 't feel confident with the strength of the knee. She states she finds herself dragging the R foot and finds the outside of the R foot catching on things. States she has arthritis, stenosis and degenerating discs of the low back. Prior Treatments and Tests See above for R TKA rehab timeframe. PT for LBP prior to R TKA surgery with good results. Saw Dr. Jaramillo for the back and had a cortisone injection a year ago and helped with back for a lttle while. Developmental History Developmental History R TKA surgery 04/04/20 with rehabilitation from 04/09 to at [facility] with good results. Treatment Goals Patient/Caregiver Goals Strengthening of the R knee, HEP that makes her feel like she is progressing. Wants to improve the way she walks and be able to walk [address] [place] in just over an hour. Decreasing LBP Improving stair ambulation steadiness/safety feeling, Prior Functional Status Baseline Function- ADL's Independent Baseline Function- Mobility Independent Baseline Function- Gait Was not able to do long walks just prior to R TKA surgery. Baseline Function- Work/School Walk level trails ([address] [place]) in just over an hour. Walked 3-4x/week. Baseline Function- Recreation/Hobbies Used and stationary exercise bike 2x/week. Current Functional Impairments (Reported) Functional Limitations- ADL's Walks outside on trails with 4WW. Walks in the home without assist device. Functional Limitations- Mobility/Gait 1.5 hours to walk the 2 miles on [address] [place]. 4x in the past 2.5 weeks. Able to do 1 step at home without difficulty, but with pain sometimes. Functional Limitations- Recreation/ Uses and stationary exercise Hobbies bike 2x/week. Personal Factors Other Personal Factors That May Effect Lives alone, history of LBP Therapy/Recovery with DDD. PT-OP-C Subjective Start: 10/26/20 17:49 Freq: Status: Active Protocol: Document 11/06/20 14:20 LRN (Rec: 11/06/20 15:08 LRN [id number]) OP-PT Subjective Patient Comments Patient Comments No change, did ex's given. PT-OP-E Functional Tests Start: 10/26/20 17:49 Freq: Status: Active Protocol: Document 10/30/20 10:19 LRN (Rec: 10/30/20 11:22 LRN [id number]) Functional Tests Five Times Sit to Stand Test Score 27.26 secs Comments On in room chair without use of UE's (norm: 70-79 yo, 12.6 secs) PT-OP-G Mobility & Gait Start: 10/26/20 17:49 Freq: Status: Active Protocol: Document 10/30/20 10:19 LRN (Rec: 10/30/20 11:22 LRN [id number]) OP Gait Assessment Gait Gait Assistance Required: Independent Able to Maintain Weight Bearing Status Yes During Gait Assistive Devices Assistive Device None Gait Deviations General Gait Pattern Flexed Trunk,Lateral Trunk Lean Comments Gait Comments Gait speed without use of assistive device on level is 20' in 8.7 secs = 2.29 ft/sec PT-OP-H Neuro Start: 10/26/20 17:49 Freq: Status: Active Protocol: Document 10/30/20 10:19 LRN (Rec: 10/30/20 11:22 LRN [id number]) Sensation Evaluation Comments Summary Comments Pt R LE is was normal to soft touch except in the lateral aspect of the R knee. PT-OP-J Posture/Palpation/Skin Start: 10/26/20 17:49 Freq: Status: Active Protocol: Document 10/30/20 10:19 LRN (Rec: 10/30/20 11:22 LRN [id number]) Posture Evaluation Position Standing L-Spine Posture Shifted Right Shoulder Posture (L) Elevated Pelvis Posture Anteriorly Tilted,(L) ASIS Posterior Knee Posture (L) Genu Valgus,(R) Genu Valgus Comments Posture Comments R LE swollen, FB hips 22 deg's . PT-OP-K Range of Motion Start: 10/26/20 17:49 Freq: Status: Active Protocol: Document 10/30/20 10:19 LRN (Rec: 10/30/20 11:22 LRN [id number]) Lumbar Spine Range of Motion Lumbar Spine Active Degrees Testing Position Standing Flexion 53 ROM Limitations Pain Comments Extension lacks 10 deg's, Active ext: Lacks 5 deg's. Knee Goniometric Range of Motion Knee Left Knee ROM WFL Yes Patient Position Supine Flexion Active (degrees) 130 Extension Active (degrees) 0 Right Patient Position Supine Flexion Active (degrees) 120 Extension Active (degrees) 0 PT-OP-L Special Tests Start: 10/26/20 17:49 Freq: Status: Active Protocol: Document 10/30/20 10:19 LRN (Rec: 10/30/20 11:22 LRN [id number]) Special Tests Lumbar Spine Special Tests Straight Leg Raise Test Results R LE: Negative Comments 80 deg's lift with Hamstring tightness PT-OP-M Strength Start: 10/26/20 17:49 Freq: Status: Active Protocol: Document 10/30/20 10:19 LRN (Rec: 10/30/20 11:22 LRN [id number]) Trunk Strength Trunk Manual Muscle Testing Testing Position Supine Core Stabilization Poor core stabilization with MMT of LE's. Hip Strength Hip Manual Muscle Testing Right Flexion (L2) 3+ Fair+ Abduction 3- Fair- Adduction 2 Poor Left Flexion (L2) 3 Fair Abduction 3- Fair- Adduction 2- Poor- Knee Strength Knee Manual Muscle Testing Left Flexion (S2) 5 Normal Extension (L3) 5 Normal Right Flexion (S2) 5 Normal Extension (L3) 5 Normal PT-OP-Q Treatments Start: 10/26/20 17:49 Freq: Status: Active Protocol: Document 11/06/20 14:20 LRN (Rec: 11/06/20 15:08 LRN [id number]) Cardio Equipment Recumbent Bicycle Duration (Minutes) 3 Other Attempted to use for LE strengthening but DC'd due to back pain. Gym Equipment Cable Column (Body Solid) Leg Curl Details Seat 5 holes showing Resistance 20# Reps/Time 15x Leg Extension Details Seat Resistance 10# Reps/Time 10x Therapeutic Exercises Sitting Exercises Knee Ext Sitting Exercise Name Knee Ext Strengthening Side right Equipment Used Lev 2 TB on plinth Reps/Minutes 10x Comments Extra time needed to determine best positioning and TB placement Knee Flex Sitting Exercise Name Knee Flex strengthening Side right Equipment Used Lev 2 TB in chair, TB attached to plinth Reps/Minutes 10x Comments Extra time needed to determine best positioning and TB placement Ankle IV Sitting Exercise Name Ankle IV Side bilateral Reps/Minutes 2' Comments MMT Ankle DF Sitting Exercise Name Ankle DF Side bilateral Reps/Minutes 2' Comments MMT Ankle EV Sitting Exercise Name Ankle EV Side bilateral Reps/Minutes 3' Comments Reviewed TB EV. Standing Exercises Hip flexor stretch Standing Exercise Name Hip Flexor stretch with hands on wall Side bilateral Reps/Minutes 4' Self-Care/Home Management Treatment Education Patient Education Home Exercise Program Activities Self-Care/Home Management Activities .............. PT-OP-T Assessment and Plan Start: 10/26/20 17:49 Freq: Status: Active Protocol: Document 11/06/20 14:20 LRN (Rec: 11/06/20 15:08 LRN [id number]) Physical Therapy Assessment Goals Four Impairment Decreased ability to ambulate stairs due to fear of falling. Short Term Goal (STG) Improve R knee AROM STG Duration 11/28/20 [facility] Goal (LTG) Pt will be able to ambulate a flight of stairs with railing 90 % confidently. LTG Duration 12/29/20 Three Impairment Decreased speed of gait (2.29 ft/sec). Short Term Goal (STG) Pt will demonstrate improved walking speed of 3-3.89 ft/sec (norm for women in 70's: maximal is 3.89 ft/secs, preferred is 2.79 ft/secs). STG Duration 11/28/20 [employer] Goal (LTG) Pt will be able to walk [address] [place] in less than 2. 5 hours or just over an hour. LTG Duration 12/29/20 Two Impairment LBP limiting lifting ability Short Term Goal (STG) Pt will be educated in proper body mechanics with emphasis on lifting. STG Duration 11/09/20 [employer] Goal (LTG) Pt will be able to carry 2-3# or 2 light bags of groceries without last low back pain. LTG Duration 12/29/20 One Impairment Pt lacks appropriate self care HEP. [employer] Goal (LTG) Pt will be independent in a self care HEP. (11/06/20: Added to existing HEP: R knee flex/ext and radha ankle EV strengthening with TBand). LTG Duration 12/29/20 (11/06/20: Progressing) Progress Towards Goals Progress Comments Progressing HEP. Assessment Summary Assessment 80 yo female who presents with functional weakness and decreased endurance of the R knee muscles with stair ambulation, poor posture and back pain. Decreased trunk mobility, but pt perception is of improved hip extension mobility. Physical Therapy Plan Frequency and Duration Frequency of Treatment 1x/Week Plan of Care Start Date 10/30/20 Plan of Care End Date 12/29/20 Next Visit Focus/Plan Next Note Type Treatment Note Next Visit Plan R knee rehabilitation of ROM, Strengthening, and normalize gait. Low Back Rehabilitation for intermittent Sciatic, decreased trunk ext, & R knee pain. Body Mechanics lifting training. Review old ex's & add trunk stab ex's to HEP. Education in self care HEP. Pt may require extended therapy due to chronicity of condition and comorbidities that may hinder her progress.
--- NOTE | 2020-11-13 16:07 | PT.OTN ---
Current Diagnoses Unilateral primary osteoarthritis, right knee (11/13/20) Radiculopathy, lumbar region (11/13/20) Muscle weakness (generalized) (11/13/20) Unsteadiness on feet (11/13/20) Abnormal posture (11/13/20) Physical Therapy Treatment Note PT-OP-A Visit Information Start: 10/26/20 17:49 Freq: Status: Active Protocol: Document 11/13/20 15:06 LRN (Rec: 11/13/20 16:04 LRN [id number]) Out-Patient Physical Therapy Visit Information Visit Information Visit Type Treatment Note Visit Start Time 15:06 Visit Stop Time 15:49 Total Visit Minutes 43 Visit Number 3 Evaluation Information Evaluation Date 10/30/20 Precautions Precautions Chronic LBP, DDD, OA PT-OP-B Current Condition Start: 10/26/20 17:49 Freq: Status: Active Protocol: Document 10/30/20 10:19 LRN (Rec: 10/30/20 11:22 LRN [id number]) Current Condition History of Current Condition Onset Date 04/04/21 Current Complaints R knee weak, LBP, difficulty with stair ambulation. History of Current Condition Pt reports pain in the R knee from the muscles, not the joint. 10/16/20 f/u appointment with surgeon decided more PT was needed as well as PT for low back pain. The pt is not satisfied with way she walks, her LBP and she is having trouble with stair ambulation. Has some R knee pain with stair and doesn 't feel confident with the strength of the knee. She states she finds herself dragging the R foot and finds the outside of the R foot catching on things. States she has arthritis, stenosis and degenerating discs of the low back. Prior Treatments and Tests See above for R TKA rehab timeframe. PT for LBP prior to R TKA surgery with good results. Saw Dr. Jaramillo for the back and had a cortisone injection a year ago and helped with back for a lttle while. Developmental History Developmental History R TKA surgery 04/04/20 with rehabilitation from 04/09 to at [facility] with good results. Treatment Goals Patient/Caregiver Goals Strengthening of the R knee, HEP that makes her feel like she is progressing. Wants to improve the way she walks and be able to walk [address] [place] in just over an hour. Decreasing LBP Improving stair ambulation steadiness/safety feeling, Prior Functional Status Baseline Function- ADL's Independent Baseline Function- Mobility Independent Baseline Function- Gait Was not able to do long walks just prior to R TKA surgery. Baseline Function- Work/School Walk level trails ([address] [place]) in just over an hour. Walked 3-4x/week. Baseline Function- Recreation/Hobbies Used and stationary exercise bike 2x/week. Current Functional Impairments (Reported) Functional Limitations- ADL's Walks outside on trails with 4WW. Walks in the home without assist device. Functional Limitations- Mobility/Gait 1.5 hours to walk the 2 miles on [address] [place]. 4x in the past 2.5 weeks. Able to do 1 step at home without difficulty, but with pain sometimes. Functional Limitations- Recreation/ Uses and stationary exercise Hobbies bike 2x/week. Personal Factors Other Personal Factors That May Effect Lives alone, history of LBP Therapy/Recovery with DDD. PT-OP-C Subjective Start: 10/26/20 17:49 Freq: Status: Active Protocol: Document 11/13/20 15:06 LRN (Rec: 11/13/20 16:04 LRN [id number]) OP-PT Subjective Patient Comments Patient Comments Back stiff/hurt, rated 3/10, this morning, but worked it out after being up for awhile, with pain a low level 1/10 that is always there. Patient Questionnaires Oswestry Low Back Index Oswestry Score 48 Oswestry Impairment 40 to 59% Impaired (Score 40- 59) PT-OP-E Functional Tests Start: 10/26/20 17:49 Freq: Status: Active Protocol: Document 10/30/20 10:19 LRN (Rec: 10/30/20 11:22 LRN [id number]) Functional Tests Five Times Sit to Stand Test Score 27.26 secs Comments On in room chair without use of UE's (norm: 70-79 yo, 12.6 secs) PT-OP-G Mobility & Gait Start: 10/26/20 17:49 Freq: Status: Active Protocol: Document 10/30/20 10:19 LRN (Rec: 10/30/20 11:22 LRN [id number]) OP Gait Assessment Gait Gait Assistance Required: Independent Able to Maintain Weight Bearing Status Yes During Gait Assistive Devices Assistive Device None Gait Deviations General Gait Pattern Flexed Trunk,Lateral Trunk Lean Comments Gait Comments Gait speed without use of assistive device on level is 20' in 8.7 secs = 2.29 ft/sec PT-OP-H Neuro Start: 10/26/20 17:49 Freq: Status: Active Protocol: Document 10/30/20 10:19 LRN (Rec: 10/30/20 11:22 LRN [id number]) Sensation Evaluation Comments Summary Comments Pt R LE is was normal to soft touch except in the lateral aspect of the R knee. PT-OP-J Posture/Palpation/Skin Start: 10/26/20 17:49 Freq: Status: Active Protocol: Document 10/30/20 10:19 LRN (Rec: 10/30/20 11:22 LRN [id number]) Posture Evaluation Position Standing L-Spine Posture Shifted Right Shoulder Posture (L) Elevated Pelvis Posture Anteriorly Tilted,(L) ASIS Posterior Knee Posture (L) Genu Valgus,(R) Genu Valgus Comments Posture Comments R LE swollen, FB hips 22 deg's . PT-OP-K Range of Motion Start: 10/26/20 17:49 Freq: Status: Active Protocol: Document 11/13/20 15:06 LRN (Rec: 11/13/20 16:04 LRN [id number]) Knee Goniometric Range of Motion Knee Left Knee ROM WFL Yes Patient Position Supine Flexion Active (degrees) 130 Extension Active (degrees) 0 Right Patient Position Supine Flexion Active (degrees) 127 Flexion Passive (degrees) 130 Comments Prior to stretching: Active flexion is 120, and passive 127. PT-OP-L Special Tests Start: 10/26/20 17:49 Freq: Status: Active Protocol: Document 10/30/20 10:19 LRN (Rec: 10/30/20 11:22 LRN [id number]) Special Tests Lumbar Spine Special Tests Straight Leg Raise Test Results R LE: Negative Comments 80 deg's lift with Hamstring tightness PT-OP-M Strength Start: 10/26/20 17:49 Freq: Status: Active Protocol: Document 10/30/20 10:19 LRN (Rec: 10/30/20 11:22 LRN [id number]) Trunk Strength Trunk Manual Muscle Testing Testing Position Supine Core Stabilization Poor core stabilization with MMT of LE's. Hip Strength Hip Manual Muscle Testing Right Flexion (L2) 3+ Fair+ Abduction 3- Fair- Adduction 2 Poor Left Flexion (L2) 3 Fair Abduction 3- Fair- Adduction 2- Poor- Knee Strength Knee Manual Muscle Testing Left Flexion (S2) 5 Normal Extension (L3) 5 Normal Right Flexion (S2) 5 Normal Extension (L3) 5 Normal PT-OP-Q Treatments Start: 10/26/20 17:49 Freq: Status: Active Protocol: Document 11/13/20 15:06 LRN (Rec: 11/13/20 16:04 LRN [id number]) Gym Equipment Cable Column (Body Solid) Leg Curl Details Seat 5 holes showing Resistance 20# Reps/Time 30x Leg Extension Details Seat Resistance 10# Reps/Time 10x 2 Therapeutic Exercises Supine Exercises R knee flexion Supine Exercise Name R knee flexion stretch Side right Reps/Minutes Long hold stretch SAQ Supine Exercise Name SAQ Side bilateral Equipment Used Bolster Reps/Minutes 10x, 5 sec hold Hip AB Supine Exercise Name Hip AB Side bilateral Reps/Minutes 8x each Comments Extra time to determine best position for ex. Standing Exercises Hip flexor stretch Standing Exercise Name Hip Flexor stretch with hands on wall f/b active stretch Side bilateral Reps/Minutes 5' Gait Training Gait Activity Gait w/cane & walking sticks Description GAit with cane Device Used SPC set at hght of wrist crease Level of Assistance Indep Surface Level Distance/Duration 12' Treatment Focus Upright posture and decreased wgt shift. Self-Care/Home Management Treatment Education Patient Education Body Mechanics Other Education Educated pt in proper body mechanics for general movements with use of handouts to show increased low back stress in various positions. Discussed modifying reaching and lifting with use of LE's more than flexion at hips. PT-OP-T Assessment and Plan Start: 10/26/20 17:49 Freq: Status: Active Protocol: Document 11/13/20 15:06 LRN (Rec: 11/13/20 16:04 LRN [id number]) Physical Therapy Assessment Goals Four Impairment Decreased ability to ambulate stairs due to fear of falling. Short Term Goal (STG) Improve R knee AROM (11/13/20: Progressing) STG Duration 11/28/20 (11/13/20: Improved. Assisted Goal (LTG) Pt will be able to ambulate a flight of stairs with railing 90 % confidently. LTG Duration 12/29/20 Three Impairment Decreased speed of gait (2.29 ft/sec). Short Term Goal (STG) Pt will demonstrate improved walking speed of 3-3.89 ft/sec (norm for women in 70's: maximal is 3.89 ft/secs, preferred is 2.79 ft/secs). STG Duration 11/28/20 Resin [employer] Goal (LTG) Pt will be able to walk [place] in less than 2. 5 hours or just over an hour. LTG Duration 12/29/20 Two Impairment LBP limiting lifting ability Short Term Goal (STG) Pt will be educated in proper body mechanics with emphasis on lifting. STG Duration 11/09/20 (11/13/20: MET GOAL) Resin Shaver Goal (LTG) Pt will be able to carry 2-3# or 2 light bags of groceries without last low back pain. LTG Duration 12/29/20 One Impairment Pt lacks appropriate self care HEP. Resin Shaver Goal (LTG) Pt will be independent in a self care HEP. (11/06/20: Added to existing HEP: R knee flex/ext and radha ankle EV strengthening with TBand). LTG Duration 12/29/20 (11/06/20: Progressing) Progress Towards Goals Progress Comments Active R knee flexion improved from 120 deg's to 127 deg's. Passive flexion is 130 deg's. STG#2: MET GOAL. Educated pt in body mechanics. Assessment Summary Assessment Pt shows improvement in R knee AROM and good PROM. No complaints of back pain currently. Pt endurance slightly improved as she is able to do more reps on [employer]. Pt appears to be able to stand taller, but with gait tends to flex @ hips. Further postural correction is needed. Pt subjective report of her LBP is somewhat arthritic in nature. Gait with cane allows for pt to stand more straight, but pt doesn't feel comfortable with use. She also shows less trunk sway with use or SPC. JOSE score of 48 indicates 40< 60% impaired. Physical Therapy Plan Frequency and Duration Frequency of Treatment 1x/Week Plan of Care Start Date 10/30/20 Plan of Care End Date 12/29/20 Next Visit Focus/Plan Next Note Type Treatment Note Next Visit Plan R knee rehabilitation of ROM, Strengthening, and normalize gait. Low Back Rehabilitation for intermittent Sciatic, decreased trunk ext, & R knee pain. Body Mechanics lifting training. Review old ex's & add trunk stab ex's to HEP. Education in self care HEP. Pt may require extended therapy due to chronicity of condition and comorbidities that may hinder her progress.
--- NOTE | 2020-11-23 12:09 | PT.OTN ---
Current Diagnoses Unilateral primary osteoarthritis, right knee (11/23/20) Radiculopathy, lumbar region (11/23/20) Muscle weakness (generalized) (11/23/20) Unsteadiness on feet (11/23/20) Abnormal posture (11/23/20) Physical Therapy Treatment Note PT-OP-A Visit Information Start: 10/26/20 17:49 Freq: Status: Active Protocol: Document 11/23/20 09:50 LRN (Rec: 11/23/20 12:08 LRN [id number]) Out-Patient Physical Therapy Visit Information Visit Information Visit Type Treatment Note Visit Start Time 09:50 Visit Stop Time 10:34 Total Visit Minutes 44 Visit Number 4 Evaluation Information Evaluation Date 10/30/20 Precautions Precautions Chronic LBP, DDD, OA PT-OP-B Current Condition Start: 10/26/20 17:49 Freq: Status: Active Protocol: Document 10/30/20 10:19 LRN (Rec: 10/30/20 11:22 LRN [id number]) Current Condition History of Current Condition Onset Date 04/04/21 Current Complaints R knee weak, LBP, difficulty with stair ambulation. History of Current Condition Pt reports pain in the R knee from the muscles, not the joint. 10/16/20 f/u appointment with surgeon decided more PT was needed as well as PT for low back pain. The pt is not satisfied with way she walks, her LBP and she is having trouble with stair ambulation. Has some R knee pain with stair and doesn 't feel confident with the strength of the knee. She states she finds herself dragging the R foot and finds the outside of the R foot catching on things. States she has arthritis, stenosis and degenerating discs of the low back. Prior Treatments and Tests See above for R TKA rehab timeframe. PT for LBP prior to R TKA surgery with good results. Saw Dr. Jaramillo for the back and had a cortisone injection a year ago and helped with back for a lttle while. Developmental History Developmental History R TKA surgery 04/04/20 with rehabilitation from 04/09 to at [facility] with good results. Treatment Goals Patient/Caregiver Goals Strengthening of the R knee, HEP that makes her feel like she is progressing. Wants to improve the way she walks and be able to walk [address] [employer] [place] in just over an hour. Decreasing LBP Improving stair ambulation steadiness/safety feeling, Prior Functional Status Baseline Function- ADL's Independent Baseline Function- Mobility Independent Baseline Function- Gait Was not able to do long walks just prior to R TKA surgery. Baseline Function- Work/School Walk level trails ([employer] [place]) in just over an hour. Walked 3-4x/week. Baseline Function- Recreation/Hobbies Used and stationary exercise bike 2x/week. Current Functional Impairments (Reported) Functional Limitations- ADL's Walks outside on trails with 4WW. Walks in the home without assist device. Functional Limitations- Mobility/Gait 1.5 hours to walk the 2 miles on [employer] [place]. 4x in the past 2.5 weeks. Able to do 1 step at home without difficulty, but with pain sometimes. Functional Limitations- Recreation/ Uses and stationary exercise Hobbies bike 2x/week. Personal Factors Other Personal Factors That May Effect Lives alone, history of LBP Therapy/Recovery with DDD. PT-OP-C Subjective Start: 10/26/20 17:49 Freq: Status: Active Protocol: Document 11/23/20 09:50 LRN (Rec: 11/23/20 12:08 LRN [id number]) OP-PT Subjective Patient Comments Patient Comments Last 2-3 days back pain has been down (knee is okay), and yesterday took a day off and feeling better. Back is better because she thinks changing positions of the pillow has helped. Walking is less painful muscle pain OP-PT Pain Assessment Pain Assessment Grid Paper Pain Assessment Grid Completed No Location R knee Pain Location Details Anterior and sometimes lateral R knee Intensity 1 Scale Used Numeric (0 - 10) Back Pain Location Details Bilateral Low Back Intensity 1 Scale Used Numeric (0 - 10) Comments Pain Comments Pain rating at time of PT appointment. Pt has back pain ranging from 1-4. PT-OP-E Functional Tests Start: 10/26/20 17:49 Freq: Status: Active Protocol: Document 10/30/20 10:19 LRN (Rec: 10/30/20 11:22 LRN [id number]) Functional Tests Five Times Sit to Stand Test Score 27.26 secs Comments On in room chair without use of UE's (norm: 70-79 yo, 12.6 secs) PT-OP-G Mobility & Gait Start: 10/26/20 17:49 Freq: Status: Active Protocol: Document 10/30/20 10:19 LRN (Rec: 10/30/20 11:22 LRN [id number]) OP Gait Assessment Gait Gait Assistance Required: Independent Able to Maintain Weight Bearing Status Yes During Gait Assistive Devices Assistive Device None Gait Deviations General Gait Pattern Flexed Trunk,Lateral Trunk Lean Comments Gait Comments Gait speed without use of assistive device on level is 20' in 8.7 secs = 2.29 ft/sec PT-OP-H Neuro Start: 10/26/20 17:49 Freq: Status: Active Protocol: Document 10/30/20 10:19 LRN (Rec: 10/30/20 11:22 LRN [id number]) Sensation Evaluation Comments Summary Comments Pt R LE is was normal to soft touch except in the lateral aspect of the R knee. PT-OP-J Posture/Palpation/Skin Start: 10/26/20 17:49 Freq: Status: Active Protocol: Document 10/30/20 10:19 LRN (Rec: 10/30/20 11:22 LRN [id number]) Posture Evaluation Position Standing L-Spine Posture Shifted Right Shoulder Posture (L) Elevated Pelvis Posture Anteriorly Tilted,(L) ASIS Posterior Knee Posture (L) Genu Valgus,(R) Genu Valgus Comments Posture Comments R LE swollen, FB hips 22 deg's . PT-OP-K Range of Motion Start: 10/26/20 17:49 Freq: Status: Active Protocol: Document 11/13/20 15:06 LRN (Rec: 11/13/20 16:04 LRN [id number]) Knee Goniometric Range of Motion Knee Left Knee ROM WFL Yes Patient Position Supine Flexion Active (degrees) 130 Extension Active (degrees) 0 Right Patient Position Supine Flexion Active (degrees) 127 Flexion Passive (degrees) 130 Comments Prior to stretching: Active flexion is 120, and passive 127. PT-OP-L Special Tests Start: 10/26/20 17:49 Freq: Status: Active Protocol: Document 10/30/20 10:19 LRN (Rec: 10/30/20 11:22 LRN [id number]) Special Tests Lumbar Spine Special Tests Straight Leg Raise Test Results R LE: Negative Comments 80 deg's lift with Hamstring tightness PT-OP-M Strength Start: 10/26/20 17:49 Freq: Status: Active Protocol: Document 10/30/20 10:19 LRN (Rec: 10/30/20 11:22 LRN [id number]) Trunk Strength Trunk Manual Muscle Testing Testing Position Supine Core Stabilization Poor core stabilization with MMT of LE's. Hip Strength Hip Manual Muscle Testing Right Flexion (L2) 3+ Fair+ Abduction 3- Fair- Adduction 2 Poor Left Flexion (L2) 3 Fair Abduction 3- Fair- Adduction 2- Poor- Knee Strength Knee Manual Muscle Testing Left Flexion (S2) 5 Normal Extension (L3) 5 Normal Right Flexion (S2) 5 Normal Extension (L3) 5 Normal PT-OP-Q Treatments Start: 10/26/20 17:49 Freq: Status: Active Protocol: Document 11/23/20 09:50 LRN (Rec: 11/23/20 12:08 LRN [id number]) Gait Training Gait Activity Weight shift, forward onto RLE Description Wgt shift forward onto R with lateral shift of hip & R trunk elongation. Device Used Wall & cane Level of Assistance Min A for physical & verbal cuing Surface Level Distance/Duration 12' Treatment Focus R lateral hip shift & R trunk elongation Comments Gait training/review after manual therapy Weight shifting Description Weight shift L with trunk L rotating to be in neutral Device Used Wall & cane Level of Assistance Min A for physical & verbal cuing Surface Level Distance/Duration 12' Treatment Focus L Pelvic rotation on L stance with weight shift. Comments Gait training/review after manual therapy Manual Therapy Treatment Soft Tissue Mobilization Iliopsoas Body Location L Iliacus & L Psoas Major Mobilization Type Manual Lymphatic Drainage, Strain/Counterstrain,Trigger Point Release Intensity/Depth Moderate Body Position Hooklying Comments S/P treatment pt showed mild improved posturing with gait training. Self-Care/Home Management Treatment Education Patient Education Posture Activities Self-Care/Home Management Activities I/S pt in standing posture during weight shift exercise to focus on at home (written as shown in gait treatment section) and to focus on hip flexor stretch bilaterally. PT-OP-T Assessment and Plan Start: 10/26/20 17:49 Freq: Status: Active Protocol: Document 11/23/20 09:50 LRN (Rec: 11/23/20 12:08 LRN [id number]) Physical Therapy Assessment Goals Four Impairment Decreased ability to ambulate stairs due to fear of falling. Short Term Goal (STG) Improve R knee AROM (11/13/20: Progressing) STG Duration 11/28/20 (11/13/20: Improved. Courtesy [employer] Cashier Goal (LTG) Pt will be able to ambulate a flight of stairs with railing 90 % confidently. LTG Duration 12/29/20 Three Impairment Decreased speed of gait (2.29 ft/sec). Short Term Goal (STG) Pt will demonstrate improved walking speed of 3-3.89 ft/sec (norm for women in 70's: maximal is 3.89 ft/secs, preferred is 2.79 ft/secs). STG Duration 11/28/20 Retirement Goal (LTG) Pt will be able to walk [employer] in less than 2. 5 hours or just over an hour. LTG Duration 12/29/20 Two Impairment LBP limiting lifting ability Short Term Goal (STG) Pt will be educated in proper body mechanics with emphasis on lifting. STG Duration 11/09/20 (11/13/20: MET GOAL) [employer] Cashier Goal (LTG) Pt will be able to carry 2-3# or 2 light bags of groceries without last low back pain. LTG Duration 12/29/20 One Impairment Pt lacks appropriate self care HEP. Retirement Goal (LTG) Pt will be independent in a self care HEP. (11/23/20: I/S pt in standing posture practice during gait wgt shifting L & R and to focus on hip flexor stretching ). LTG Duration 12/29/20 (11/23/20: Progressing) Progress Towards Goals Progress Comments Mildly improved standing posture during weight shift phase of gait. R knee is not bothering patient with use of cane. Assessment Summary Assessment Gait mechanics: L wgt shifting: Pelvis rotates R; R wgt shifting: Lacks hip shift R and trunk sidebends L. Mildly improved after manual therapy to stretch L Ilipsoas, with intial slight reversal of the initial postural changes. Physical Therapy Plan Frequency and Duration Frequency of Treatment 1x/Week Plan of Care Start Date 10/30/20 Plan of Care End Date 12/29/20 Next Visit Focus/Plan Next Note Type Treatment Note Next Visit Plan Focus on Low Back Rehabilitation for Iliopsoas stretching to decrease intermittent Sciatic, decreased trunk ext, & R knee pain, and normalize gait. Body Mechanics lifting training. Add trunk stab ex's to HEP. Progress HEP as needed. Assess need for R knee rehabilitation of ROM, Strengthening. Pt may require extended therapy due to chronicity of condition and comorbidities that may hinder her progress.
--- NOTE | 2020-12-04 12:15 | PT.OTN ---
Current Diagnoses Unilateral primary osteoarthritis, right knee (12/04/20) Radiculopathy, lumbar region (12/04/20) Muscle weakness (generalized) (12/04/20) Unsteadiness on feet (12/04/20) Abnormal posture (12/04/20) Physical Therapy Treatment Note PT-OP-A Visit Information Start: 10/26/20 17:49 Freq: Status: Active Protocol: Document 12/04/20 11:21 LRN (Rec: 12/04/20 12:15 LRN [id number]) Out-Patient Physical Therapy Visit Information Visit Information Visit Type Treatment Note Visit Start Time 11:21 Visit Stop Time 11:59 Total Visit Minutes 38 Visit Number 5 Evaluation Information Evaluation Date 10/30/20 Precautions Precautions Chronic LBP, DDD, OA PT-OP-B Current Condition Start: 10/26/20 17:49 Freq: Status: Active Protocol: Document 10/30/20 10:19 LRN (Rec: 10/30/20 11:22 LRN [id number]) Current Condition History of Current Condition Onset Date 04/04/21 Current Complaints R knee weak, LBP, difficulty with stair ambulation. History of Current Condition Pt reports pain in the R knee from the muscles, not the joint. 10/16/20 f/u appointment with surgeon decided more PT was needed as well as PT for low back pain. The pt is not satisfied with way she walks, her LBP and she is having trouble with stair ambulation. Has some R knee pain with stair and doesn 't feel confident with the strength of the knee. She states she finds herself dragging the R foot and finds the outside of the R foot catching on things. States she has arthritis, stenosis and degenerating discs of the low back. Prior Treatments and Tests See above for R TKA rehab timeframe. PT for LBP prior to R TKA surgery with good results. Saw Dr. Jaramillo for the back and had a cortisone injection a year ago and helped with back for a lttle while. Developmental History Developmental History R TKA surgery 04/04/20 with rehabilitation from 04/09 to at [facility] with good results. Treatment Goals Patient/Caregiver Goals Strengthening of the R knee, HEP that makes her feel like she is progressing. Wants to improve the way she walks and be able to walk [address] [place] in just over an hour. Decreasing LBP Improving stair ambulation steadiness/safety feeling, Prior Functional Status Baseline Function- ADL's Independent Baseline Function- Mobility Independent Baseline Function- Gait Was not able to do long walks just prior to R TKA surgery. Baseline Function- Work/School Walk level trails ([employer] [place]) in just over an hour. Walked 3-4x/week. Baseline Function- Recreation/Hobbies Used and stationary exercise bike 2x/week. Current Functional Impairments (Reported) Functional Limitations- ADL's Walks outside on trails with 4WW. Walks in the home without assist device. Functional Limitations- Mobility/Gait 1.5 hours to walk the 2 miles on [address] [place]. 4x in the past 2.5 weeks. Able to do 1 step at home without difficulty, but with pain sometimes. Functional Limitations- Recreation/ Uses and stationary exercise Hobbies bike 2x/week. Personal Factors Other Personal Factors That May Effect Lives alone, history of LBP Therapy/Recovery with DDD. PT-OP-C Subjective Start: 10/26/20 17:49 Freq: Status: Active Protocol: Document 12/04/20 11:21 LRN (Rec: 12/04/20 12:15 LRN [id number]) OP-PT Subjective Patient Comments Patient Comments ................ States she is way better, spine pain level has gone down to <1/10 and sleeping with pillow under knee and doing exercises. Walked 25' minutes without hip /back pain. Content with 25- 30' mile. PT-OP-E Functional Tests Start: 10/26/20 17:49 Freq: Status: Active Protocol: Document 12/04/20 11:21 LRN (Rec: 12/04/20 12:15 LRN [id number]) Functional Tests Other Gait Speed Name of Test Gait speed Score 2.5 ft/sec PT-OP-G Mobility & Gait Start: 10/26/20 17:49 Freq: Status: Active Protocol: Document 10/30/20 10:19 LRN (Rec: 10/30/20 11:22 LRN [id number]) OP Gait Assessment Gait Gait Assistance Required: Independent Able to Maintain Weight Bearing Status Yes During Gait Assistive Devices Assistive Device None Gait Deviations General Gait Pattern Flexed Trunk,Lateral Trunk Lean Comments Gait Comments Gait speed without use of assistive device on level is 20' in 8.7 secs = 2.29 ft/sec PT-OP-H Neuro Start: 10/26/20 17:49 Freq: Status: Active Protocol: Document 10/30/20 10:19 LRN (Rec: 10/30/20 11:22 LRN [id number]) Sensation Evaluation Comments Summary Comments Pt R LE is was normal to soft touch except in the lateral aspect of the R knee. PT-OP-J Posture/Palpation/Skin Start: 10/26/20 17:49 Freq: Status: Active Protocol: Document 10/30/20 10:19 LRN (Rec: 10/30/20 11:22 LRN [id number]) Posture Evaluation Position Standing L-Spine Posture Shifted Right Shoulder Posture (L) Elevated Pelvis Posture Anteriorly Tilted,(L) ASIS Posterior Knee Posture (L) Genu Valgus,(R) Genu Valgus Comments Posture Comments R LE swollen, FB hips 22 deg's . PT-OP-K Range of Motion Start: 10/26/20 17:49 Freq: Status: Active Protocol: Document 11/13/20 15:06 LRN (Rec: 11/13/20 16:04 LRN [id number]) Knee Goniometric Range of Motion Knee Left Knee ROM WFL Yes Patient Position Supine Flexion Active (degrees) 130 Extension Active (degrees) 0 Right Patient Position Supine Flexion Active (degrees) 127 Flexion Passive (degrees) 130 Comments Prior to stretching: Active flexion is 120, and passive 127. PT-OP-L Special Tests Start: 10/26/20 17:49 Freq: Status: Active Protocol: Document 10/30/20 10:19 LRN (Rec: 10/30/20 11:22 LRN [id number]) Special Tests Lumbar Spine Special Tests Straight Leg Raise Test Results R LE: Negative Comments 80 deg's lift with Hamstring tightness PT-OP-M Strength Start: 10/26/20 17:49 Freq: Status: Active Protocol: Document 10/30/20 10:19 LRN (Rec: 10/30/20 11:22 LRN [id number]) Trunk Strength Trunk Manual Muscle Testing Testing Position Supine Core Stabilization Poor core stabilization with MMT of LE's. Hip Strength Hip Manual Muscle Testing Right Flexion (L2) 3+ Fair+ Abduction 3- Fair- Adduction 2 Poor Left Flexion (L2) 3 Fair Abduction 3- Fair- Adduction 2- Poor- Knee Strength Knee Manual Muscle Testing Left Flexion (S2) 5 Normal Extension (L3) 5 Normal Right Flexion (S2) 5 Normal Extension (L3) 5 Normal PT-OP-Q Treatments Start: 10/26/20 17:49 Freq: Status: Active Protocol: Document 12/04/20 11:21 LRN (Rec: 12/04/20 12:15 LRN [id number]) Therapeutic Exercises Standing Exercises Hip flexor stretch Standing Exercise Name Hip Flexor stretch with hands on wall f/b active stretch Side bilateral Reps/Minutes 8' Comments Extra time needed to retrain for adding active stretch, phys cuing needed. Other Exercises Stair stepping Other Exercise Name 4 & 6 stairs Side bilateral Reps/Minutes 3' Gait Training Gait Activity On level Description Change of gait speed Device Used None Surface Level Treatment Focus Safety with gait at variable speed Comments Gait speed assessed (2.5 ft/ sec) Manual Therapy Treatment Soft Tissue Mobilization Iliopsoas Body Location L Iliacus & L Psoas Major Mobilization Type Strain/Counterstrain,Trigger Point Release Intensity/Depth Moderate Body Position Hooklying Comments S/P treatment pt showed improved posturing with gait training. PT-OP-T Assessment and Plan Start: 10/26/20 17:49 Freq: Status: Active Protocol: Document 12/04/20 11:21 LRN (Rec: 12/04/20 12:15 LRN [id number]) Physical Therapy Assessment Goals Four Impairment Decreased ability to ambulate stairs due to fear of falling. Short Term Goal (STG) Improve R knee AROM (11/13/20: Progressing) STG Duration 11/28/20 (11/13/20: Improved. Intermediate Goal (LTG) Pt will be able to ambulate a flight of stairs with railing 90 % confidently. LTG Duration 12/29/20 Three Impairment Decreased speed of gait (2.29 ft/sec). Short Term Goal (STG) Pt will demonstrate improved walking speed of 3-3.89 ft/sec (norm for women in 70's: maximal is 3.89 ft/secs, preferred is 2.79 ft/secs). (12/04/20: Gt speed 2.5 ft/sec ) STG Duration 11/28/20 (12/04/20: Progressing) Intermediate Goal (LTG) Pt will be able to walk [employer] [place] in less than 2. 5 hours or just over an hour. LTG Duration 12/29/20 Two Impairment LBP limiting lifting ability Short Term Goal (STG) Pt will be educated in proper body mechanics with emphasis on lifting. STG Duration 11/09/20 (11/13/20: MET GOAL) Computational Scientist Goal (LTG) Pt will be able to carry 2-3# or 2 light bags of groceries without last low back pain. LTG Duration 12/29/20 One Impairment Pt lacks appropriate self care HEP. Computational Scientist Goal (LTG) Pt will be independent in a self care HEP. (11/23/20: I/S pt in standing posture practice during gait wgt shifting L & R and to focus on hip flexor stretching ). LTG Duration 12/29/20 (11/23/20: Progressing) Progress Towards Goals Progress Comments Gait speed improved from 2.29 ft/sec to 2.5 ft/sec. Pain with gait decreased from 4-5/10 to < 1/10. Assessment Summary Assessment Pt walking speed and standing posture improved. Pt having less pain overall with pain with gait of <1/10. Physical Therapy Plan Frequency and Duration Frequency of Treatment 1x/Week Plan of Care Start Date 10/30/20 Plan of Care End Date 12/29/20 Next Visit Focus/Plan Next Note Type Treatment Note Next Visit Plan Assess function of carrying groceries, R knee AROM and TFL /Piriformis tightness. Low Back Rehabilitation for Iliopsoas stretching to decrease intermittent low back and R lateral knee pain. Decrease R lateral knee pain with trunk ext, and normalize gait speed/distance. Add knee /LE strengthening. Body Mechanics lifting training. Add trunk stab ex's to HEP. Assess need for R knee rehabilitation of ROM, Strengthening. Extended therapy due to chronicity of condition and comorbidities that hinder her progress. HEP as needed.
--- NOTE | 2020-12-13 15:44 | PT.OTN ---
Current Diagnoses Unilateral primary osteoarthritis, right knee (12/13/20) Radiculopathy, lumbar region (12/13/20) Muscle weakness (generalized) (12/13/20) Unsteadiness on feet (12/13/20) Abnormal posture (12/13/20) Physical Therapy Treatment Note PT-OP-A Visit Information Start: 10/26/20 17:49 Freq: Status: Active Protocol: Document 12/13/20 14:21 LRN (Rec: 12/13/20 15:42 LRN [id number]) Out-Patient Physical Therapy Visit Information Visit Information Visit Type Treatment Note Visit Start Time 14:21 Visit Stop Time 15:10 Total Visit Minutes 49 Visit Number 6 Evaluation Information Evaluation Date 10/30/20 Precautions Precautions Chronic LBP, DDD, OA PT-OP-B Current Condition Start: 10/26/20 17:49 Freq: Status: Active Protocol: Document 10/30/20 10:19 LRN (Rec: 10/30/20 11:22 LRN [id number]) Current Condition History of Current Condition Onset Date 04/04/21 Current Complaints R knee weak, LBP, difficulty with stair ambulation. History of Current Condition Pt reports pain in the R knee from the muscles, not the joint. 10/16/20 f/u appointment with surgeon decided more PT was needed as well as PT for low back pain. The pt is not satisfied with way she walks, her LBP and she is having trouble with stair ambulation. Has some R knee pain with stair and doesn 't feel confident with the strength of the knee. She states she finds herself dragging the R foot and finds the outside of the R foot catching on things. States she has arthritis, stenosis and degenerating discs of the low back. Prior Treatments and Tests See above for R TKA rehab timeframe. PT for LBP prior to R TKA surgery with good results. Saw Dr. Jaramillo for the back and had a cortisone injection a year ago and helped with back for a lttle while. Developmental History Developmental History R TKA surgery 04/04/20 with rehabilitation from 04/09 to at [facility] with good results. Treatment Goals Patient/Caregiver Goals Strengthening of the R knee, HEP that makes her feel like she is progressing. Wants to improve the way she walks and be able to walk [address] [employer] [place] in just over an hour. Decreasing LBP Improving stair ambulation steadiness/safety feeling, Prior Functional Status Baseline Function- ADL's Independent Baseline Function- Mobility Independent Baseline Function- Gait Was not able to do long walks just prior to R TKA surgery. Baseline Function- Work/School Walk level trails ([employer] [place]) in just over an hour. Walked 3-4x/week. Baseline Function- Recreation/Hobbies Used and stationary exercise bike 2x/week. Current Functional Impairments (Reported) Functional Limitations- ADL's Walks outside on trails with 4WW. Walks in the home without assist device. Functional Limitations- Mobility/Gait 1.5 hours to walk the 2 miles on [employer] [place]. 4x in the past 2.5 weeks. Able to do 1 step at home without difficulty, but with pain sometimes. Functional Limitations- Recreation/ Uses and stationary exercise Hobbies bike 2x/week. Personal Factors Other Personal Factors That May Effect Lives alone, history of LBP Therapy/Recovery with DDD. PT-OP-C Subjective Start: 10/26/20 17:49 Freq: Status: Active Protocol: Document 12/13/20 14:21 LRN (Rec: 12/13/20 15:42 LRN [id number]) OP-PT Subjective Patient Comments Patient Comments States she thinks she is ready for discharge from therapy as long as she has exercises to do. If she needs to come back to therapy she knows to see her doctor for another referral. PT-OP-E Functional Tests Start: 10/26/20 17:49 Freq: Status: Active Protocol: Document 12/13/20 14:21 LRN (Rec: 12/13/20 15:42 LRN [id number]) Functional Tests Other Gait Speed Name of Test Gait speed Score 2.9 ft/sec Comment Preferred for women in 70's is 2.79 ft/sec PT-OP-G Mobility & Gait Start: 10/26/20 17:49 Freq: Status: Active Protocol: Document 12/13/20 14:21 LRN (Rec: 12/13/20 15:42 LRN [id number]) OP Gait Assessment Gait Gait Assistance Required: Independent Distance (Feet) 150 Able to Maintain Weight Bearing Status Yes During Gait Assistive Devices Assistive Device None Gait Deviations General Gait Pattern Flexed Trunk,Lateral Trunk Lean,Wide Based Gait Factors Limiting Gait Function Factors Limiting Gait Function Limited Range of Motion,Pain Comments Gait Comments Gait speed is 2.9 ft/sec PT-OP-H Neuro Start: 10/26/20 17:49 Freq: Status: Active Protocol: Document 10/30/20 10:19 LRN (Rec: 10/30/20 11:22 LRN [id number]) Sensation Evaluation Comments Summary Comments Pt R LE is was normal to soft touch except in the lateral aspect of the R knee. PT-OP-J Posture/Palpation/Skin Start: 10/26/20 17:49 Freq: Status: Active Protocol: Document 10/30/20 10:19 LRN (Rec: 10/30/20 11:22 LRN [id number]) Posture Evaluation Position Standing L-Spine Posture Shifted Right Shoulder Posture (L) Elevated Pelvis Posture Anteriorly Tilted,(L) ASIS Posterior Knee Posture (L) Genu Valgus,(R) Genu Valgus Comments Posture Comments R LE swollen, FB hips 22 deg's . PT-OP-K Range of Motion Start: 10/26/20 17:49 Freq: Status: Active Protocol: Document 12/13/20 14:21 LRN (Rec: 12/13/20 15:42 LRN [id number]) Knee Goniometric Range of Motion Knee Left Knee ROM WFL Yes Patient Position Supine Flexion Active (degrees) 130 Extension Active (degrees) 0 PT-OP-L Special Tests Start: 10/26/20 17:49 Freq: Status: Active Protocol: Document 10/30/20 10:19 LRN (Rec: 10/30/20 11:22 LRN [id number]) Special Tests Lumbar Spine Special Tests Straight Leg Raise Test Results R LE: Negative Comments 80 deg's lift with Hamstring tightness PT-OP-M Strength Start: 10/26/20 17:49 Freq: Status: Active Protocol: Document 10/30/20 10:19 LRN (Rec: 10/30/20 11:22 LRN [id number]) Trunk Strength Trunk Manual Muscle Testing Testing Position Supine Core Stabilization Poor core stabilization with MMT of LE's. Hip Strength Hip Manual Muscle Testing Right Flexion (L2) 3+ Fair+ Abduction 3- Fair- Adduction 2 Poor Left Flexion (L2) 3 Fair Abduction 3- Fair- Adduction 2- Poor- Knee Strength Knee Manual Muscle Testing Left Flexion (S2) 5 Normal Extension (L3) 5 Normal Right Flexion (S2) 5 Normal Extension (L3) 5 Normal PT-OP-Q Treatments Start: 10/26/20 17:49 Freq: Status: Active Protocol: Document 12/13/20 14:21 LRN (Rec: 12/13/20 15:42 LRN [id number]) Therapeutic Exercises Supine Exercises Ilipsoas stretch Supine Exercise Name Iliopsoas stretch from end and side of plinth Side bilateral Reps/Minutes 8' Comments Extra time for finding proper positioning for pt's tolerance Gait Training Gait Activity Weight shift, forward onto RLE Description Wgt shift forward onto R with lateral shift of hip & trunk neutral. Device Used Wall Level of Assistance Min A for physical & verbal cuing Surface Level Distance/Duration 4' Treatment Focus stretch to R hip with forward stepping left and neutral trunk positioning Comments Gait training after with gait speed taken Weight shifting Description Weight shift L with trunk L rotating to be in neutral Device Used Wall for balance Level of Assistance Min A for physical & verbal cuing Surface Level Distance/Duration 14' Treatment Focus L Pelvic rotation on L stance with weight shift. Comments Gait training Self-Care/Home Management Treatment Education Patient Education Home Exercise Program Other Education Reviewed each HEP with recommendations of order most needed to least needed. Pt wrote list of exercises to help remind her of ex's to do. Activities Self-Care/Home Management Activities Issued & reviewed alternative ex for Ilipsoas stretch in supine (from side of surface vs end of surface, and re- issued hip stretches) PT-OP-T Assessment and Plan Start: 10/26/20 17:49 Freq: Status: Active Protocol: Document 12/13/20 14:21 LRN (Rec: 12/13/20 15:42 LRN [id number]) Physical Therapy Assessment Goals Four Impairment Decreased ability to ambulate stairs due to fear of falling. Short Term Goal (STG) Improve R knee AROM (11/13/20: Progressing) STG Duration 11/28/20 (11/13/20: Improved. Hearing Aide Technician Goal (LTG) Pt will be able to ambulate a flight of stairs with railing 90 % confidently. (12/13/20: Going up 50%, down 20% confidence) LTG Duration 12/29/20 (12/13/20: Improved, goal not met) Three Impairment Decreased speed of gait (2.29 ft/sec). Short Term Goal (STG) Pt will demonstrate improved walking speed of 3-3.89 ft/sec (norm for women in 70's: maximal is 3.89 ft/secs, preferred is 2.79 ft/secs). (12/13/20: Gt speed 2.9 ft/sec ) STG Duration 11/28/20 (12/13/20: GOAL MET for normal gt speed for her age group) Hearing Aide Technician Goal (LTG) Pt will be able to walk [place] in less than 2. 5 hours or just over an hour. (12/13/20: Did a mile in 30 minutes) LTG Duration 12/29/20 (12/13/20: Goal not met) Two Impairment LBP limiting lifting ability Short Term Goal (STG) Pt will be educated in proper body mechanics with emphasis on lifting. STG Duration 11/09/20 (12/13/20: MET GOAL) Half-Way Goal (LTG) Pt will be able to carry 2-3# or 2 light bags of groceries without last low back pain. (12/13/20: Able to carry groceries fine). LTG Duration 12/29/20 (12/13/20: MET GOAL) One Impairment Pt lacks appropriate self care HEP. Half-Way Goal (LTG) Pt will be independent in a self care HEP. (11/23/20: I/S pt in standing posture practice during gait wgt shifting L & R and to focus on hip flexor stretching ). LTG Duration 12/29/20 (12/13/20: MET GOAL) Progress Towards Goals Progress Comments Gait speed is 2.9 ft/sec, initially was 2.29 ft/sec, ( norm for women in 70's: maximal is 3.89 ft/secs, preferred is 2.79 ft/secs). Assessment Summary Assessment Pt ambulates into therapy without an assistive device and minimal trunk sway without pain. She stands with hip flexion ~18 deg's. Knee strength per MMT is 5/5. Gt speed is greater than preferred walking speed for women in their 70's. Pt has not gained the confidence with stairs due to her perception of LE weakness and she lacks endurance for long distance walking ([employer] [place]) at this time. The pt is confident she will be able to improve endurance with continued exercise and walking as summer months approach. Pt appears to have a good understanding of the HEP reviewed today. Pt may need in the future review of exercises and postural retraining if she does not continue with her home exercises. Physical Therapy Plan Discharge Physical Therapy Discharge Reasons Patient Request Discharge Comments Pt met most goals. She will work towards improving her posture and LE strength and overall walking endurance. Therapy in the future may be needed to assist the pt past flare ups if she is not able to maintain improved posture or LB/hip mobility improvements. Thank you for your referral.
--- NOTE | 2020-12-13 15:47 | PT.OTN ---
Current Diagnoses Unilateral primary osteoarthritis, right knee (12/13/20) Radiculopathy, lumbar region (12/13/20) Muscle weakness (generalized) (12/13/20) Unsteadiness on feet (12/13/20) Abnormal posture (12/13/20) Physical Therapy Treatment Note PT-OP-A Visit Information Start: 10/26/20 17:49 Freq: Status: Active Protocol: Document 12/13/20 14:21 LRN (Rec: 12/13/20 15:42 LRN [id number]) Out-Patient Physical Therapy Visit Information Visit Information Visit Type Treatment Note Visit Start Time 14:21 Visit Stop Time 15:10 Total Visit Minutes 49 Visit Number 6 Evaluation Information Evaluation Date 10/30/20 Precautions Precautions Chronic LBP, DDD, OA PT-OP-B Current Condition Start: 10/26/20 17:49 Freq: Status: Active Protocol: Document 10/30/20 10:19 LRN (Rec: 10/30/20 11:22 LRN [id number]) Current Condition History of Current Condition Onset Date 04/04/21 Current Complaints R knee weak, LBP, difficulty with stair ambulation. History of Current Condition Pt reports pain in the R knee from the muscles, not the joint. 10/16/20 f/u appointment with surgeon decided more PT was needed as well as PT for low back pain. The pt is not satisfied with way she walks, her LBP and she is having trouble with stair ambulation. Has some R knee pain with stair and doesn 't feel confident with the strength of the knee. She states she finds herself dragging the R foot and finds the outside of the R foot catching on things. States she has arthritis, stenosis and degenerating discs of the low back. Prior Treatments and Tests See above for R TKA rehab timeframe. PT for LBP prior to R TKA surgery with good results. Saw Dr. Jaramillo for the back and had a cortisone injection a year ago and helped with back for a lttle while. Developmental History Developmental History R TKA surgery 04/04/20 with rehabilitation from 04/09 to at [facility] with good results. Treatment Goals Patient/Caregiver Goals Strengthening of the R knee, HEP that makes her feel like she is progressing. Wants to improve the way she walks and be able to walk [employer] [place] in just over an hour. Decreasing LBP Improving stair ambulation steadiness/safety feeling, Prior Functional Status Baseline Function- ADL's Independent Baseline Function- Mobility Independent Baseline Function- Gait Was not able to do long walks just prior to R TKA surgery. Baseline Function- Work/School Walk level trails ([employer] [place]) in just over an hour. Walked 3-4x/week. Baseline Function- Recreation/Hobbies Used and stationary exercise bike 2x/week. Current Functional Impairments (Reported) Functional Limitations- ADL's Walks outside on trails with 4WW. Walks in the home without assist device. Functional Limitations- Mobility/Gait 1.5 hours to walk the 2 miles on [employer] [place]. 4x in the past 2.5 weeks. Able to do 1 step at home without difficulty, but with pain sometimes. Functional Limitations- Recreation/ Uses and stationary exercise Hobbies bike 2x/week. Personal Factors Other Personal Factors That May Effect Lives alone, history of LBP Therapy/Recovery with DDD. PT-OP-C Subjective Start: 10/26/20 17:49 Freq: Status: Active Protocol: Document 12/13/20 14:21 LRN (Rec: 12/13/20 15:42 LRN [id number]) OP-PT Subjective Patient Comments Patient Comments States she thinks she is ready for discharge from therapy as long as she has exercises to do. If she needs to come back to therapy she knows to see her doctor for another referral. Patient Questionnaires Lower Extremity Functional Scale LEFS Score 35 LEFS Impairment 40 to 59% Impaired (Score 32- 47) OP-PT Pain Assessment Location R knee Pain Location Details Anterior and sometimes lateral R knee Intensity 0 Back Pain Location Details L SIJ Intensity 1 Scale Used Numeric (0 - 10) Frequency Intermittent PT-OP-E Functional Tests Start: 10/26/20 17:49 Freq: Status: Active Protocol: Document 12/13/20 14:21 LRN (Rec: 12/13/20 15:42 LRN [id number]) Functional Tests Other Gait Speed Name of Test Gait speed Score 2.9 ft/sec Comment Preferred for women in 70's is 2.79 ft/sec PT-OP-G Mobility & Gait Start: 10/26/20 17:49 Freq: Status: Active Protocol: Document 12/13/20 14:21 LRN (Rec: 12/13/20 15:42 LRN [id number]) OP Gait Assessment Gait Gait Assistance Required: Independent Distance (Feet) 150 Able to Maintain Weight Bearing Status Yes During Gait Assistive Devices Assistive Device None Gait Deviations General Gait Pattern Flexed Trunk,Lateral Trunk Lean,Wide Based Gait Factors Limiting Gait Function Factors Limiting Gait Function Limited Range of Motion,Pain Comments Gait Comments Gait speed is 2.9 ft/sec PT-OP-H Neuro Start: 10/26/20 17:49 Freq: Status: Active Protocol: Document 10/30/20 10:19 LRN (Rec: 10/30/20 11:22 LRN [id number]) Sensation Evaluation Comments Summary Comments Pt R LE is was normal to soft touch except in the lateral aspect of the R knee. PT-OP-J Posture/Palpation/Skin Start: 10/26/20 17:49 Freq: Status: Active Protocol: Document 10/30/20 10:19 LRN (Rec: 10/30/20 11:22 LRN [id number]) Posture Evaluation Position Standing L-Spine Posture Shifted Right Shoulder Posture (L) Elevated Pelvis Posture Anteriorly Tilted,(L) ASIS Posterior Knee Posture (L) Genu Valgus,(R) Genu Valgus Comments Posture Comments R LE swollen, FB hips 22 deg's . PT-OP-K Range of Motion Start: 10/26/20 17:49 Freq: Status: Active Protocol: Document 12/13/20 14:21 LRN (Rec: 12/13/20 15:42 LRN [id number]) Knee Goniometric Range of Motion Knee Left Knee ROM WFL Yes Patient Position Supine Flexion Active (degrees) 130 Extension Active (degrees) 0 PT-OP-L Special Tests Start: 10/26/20 17:49 Freq: Status: Active Protocol: Document 10/30/20 10:19 LRN (Rec: 10/30/20 11:22 LRN [id number]) Special Tests Lumbar Spine Special Tests Straight Leg Raise Test Results R LE: Negative Comments 80 deg's lift with Hamstring tightness PT-OP-M Strength Start: 10/26/20 17:49 Freq: Status: Active Protocol: Document 10/30/20 10:19 LRN (Rec: 10/30/20 11:22 LRN [id number]) Trunk Strength Trunk Manual Muscle Testing Testing Position Supine Core Stabilization Poor core stabilization with MMT of LE's. Hip Strength Hip Manual Muscle Testing Right Flexion (L2) 3+ Fair+ Abduction 3- Fair- Adduction 2 Poor Left Flexion (L2) 3 Fair Abduction 3- Fair- Adduction 2- Poor- Knee Strength Knee Manual Muscle Testing Left Flexion (S2) 5 Normal Extension (L3) 5 Normal Right Flexion (S2) 5 Normal Extension (L3) 5 Normal PT-OP-Q Treatments Start: 10/26/20 17:49 Freq: Status: Active Protocol: Document 12/13/20 14:21 LRN (Rec: 12/13/20 15:42 LRN [id number]) Therapeutic Exercises Supine Exercises Ilipsoas stretch Supine Exercise Name Iliopsoas stretch from end and side of plinth Side bilateral Reps/Minutes 8' Comments Extra time for finding proper positioning for pt's tolerance Gait Training Gait Activity Weight shift, forward onto RLE Description Wgt shift forward onto R with lateral shift of hip & trunk neutral. Device Used Wall Level of Assistance Min A for physical & verbal cuing Surface Level Distance/Duration 4' Treatment Focus stretch to R hip with forward stepping left and neutral trunk positioning Comments Gait training after with gait speed taken Weight shifting Description Weight shift L with trunk L rotating to be in neutral Device Used Wall for balance Level of Assistance Min A for physical & verbal cuing Surface Level Distance/Duration 14' Treatment Focus L Pelvic rotation on L stance with weight shift. Comments Gait training Self-Care/Home Management Treatment Education Patient Education Home Exercise Program Other Education Reviewed each HEP with recommendations of order most needed to least needed. Pt wrote list of exercises to help remind her of ex's to do. Activities Self-Care/Home Management Activities Issued & reviewed alternative ex for Ilipsoas stretch in supine (from side of surface vs end of surface, and re- issued hip stretches) PT-OP-T Assessment and Plan Start: 10/26/20 17:49 Freq: Status: Active Protocol: Document 12/13/20 14:21 LRN (Rec: 12/13/20 15:42 LRN [id number]) Physical Therapy Assessment Goals Four Impairment Decreased ability to ambulate stairs due to fear of falling. Short Term Goal (STG) Improve R knee AROM (11/13/20: Progressing) STG Duration 5/12/21 (11/13/20: Improved. Shift Supervisor Rn Goal (LTG) Pt will be able to ambulate a flight of stairs with railing 90 % confidently. (12/13/20: Going up 50%, down 20% confidence) LTG Duration 12/29/20 (12/13/20: Improved, goal not met) Three Impairment Decreased speed of gait (2.29 ft/sec). Short Term Goal (STG) Pt will demonstrate improved walking speed of 3-3.89 ft/sec (norm for women in 70's: maximal is 3.89 ft/secs, preferred is 2.79 ft/secs). (12/13/20: Gt speed 2.9 ft/sec ) STG Duration 11/28/20 (12/13/20: GOAL MET for normal gt speed for her age group) Senior Care Goal (LTG) Pt will be able to walk [place] in less than 2. 5 hours or just over an hour. (12/13/20: Did a mile in 30 minutes) LTG Duration 12/29/20 (12/13/20: Goal not met) Two Impairment LBP limiting lifting ability Short Term Goal (STG) Pt will be educated in proper body mechanics with emphasis on lifting. STG Duration 11/09/20 (12/13/20: MET GOAL) Shift Supervisor Rn Goal (LTG) Pt will be able to carry 2-3# or 2 light bags of groceries without last low back pain. (12/13/20: Able to carry groceries fine). LTG Duration 12/29/20 (12/13/20: MET GOAL) One Impairment Pt lacks appropriate self care HEP. Senior Care Goal (LTG) Pt will be independent in a self care HEP. (11/23/20: I/S pt in standing posture practice during gait wgt shifting L & R and to focus on hip flexor stretching ). LTG Duration 12/29/20 (12/13/20: MET GOAL) Progress Towards Goals Progress Comments Gait speed is 2.9 ft/sec, initially was 2.29 ft/sec, ( norm for women in 70's: maximal is 3.89 ft/secs, preferred is 2.79 ft/secs). Assessment Summary Assessment Pt ambulates into therapy without an assistive device and minimal trunk sway without pain. She stands with hip flexion ~18 deg's. Knee strength per MMT is 5/5. Gt speed is greater than preferred walking speed for women in their 70's. Pt has not gained the confidence with stairs due to her perception of LE weakness and she lacks endurance for long distance walking ([employer] [place]) at this time. The pt is confident she will be able to improve endurance with continued exercise and walking as summer months approach. Pt appears to have a good understanding of the HEP reviewed today. Pt may need in the future review of exercises and postural retraining if she does not continue with her home exercises. Physical Therapy Plan Discharge Physical Therapy Discharge Reasons Patient Request Discharge Comments Pt met most goals. She will work towards improving her posture and LE strength and overall walking endurance. Therapy in the future may be needed to assist the pt past flare ups if she is not able to maintain improved posture or LB/hip mobility improvements. Thank you for your referral.
== END 2020-12-14 07:48 | disposition home or self-care (01) ==
LOC: PHYS 14:15
PROVIDERS: Family Provider Physician Assistant; PCP Physician Assistant; Referring Provider Orthopaedic Surgery; Visit Provider Orthopaedic Surgery
DX: M17.11 Unilateral primary osteoarthritis, right knee (principal); M54.16 Radiculopathy, lumbar region; M62.81 Muscle weakness (generalized); R26.81 Unsteadiness on feet; R29.3 Abnormal posture
CPT/HCPCS: 97110; 97116; 97140; 97162; 97535

== ENCOUNTER → 2021-12-12 11:11 | Outpatient (CLI) | payer MEDICARE, SELFPAY ==
[2020-04-04 14:14] VITALS: BMI 28.3
--- NOTE | 2021-12-12 | DI.MG.S_ITS ---
BILATERAL DIGITAL SCREENING MAMMOGRAM 3D/2D WITH CAD: 12/12/2021 CLINICAL: Routine screening. Comparison is made to exams dated: 07/19/2019 mammogram, 02/09/2018 mammogram, 12/10/2016 mammogram, 12/24/2016 mammogram - [facility], and 10/19/2015 mammogram - DIGITAL MAMMOGRAPHY. The tissue of both breasts is extremely dense, which lowers the sensitivity of mammography. Current study was also evaluated with a Computer Aided Detection (CAD) system. There are benign vascular calcifications in both breasts. No significant masses, calcifications, or other findings are seen in either breast. There has been no significant interval change. IMPRESSION: BENIGN There is no mammographic evidence of malignancy. A 1 year screening mammogram is recommended. This exam was interpreted at Station ID: [id number]. NOTE: For mammograms, a report in lay terms will be sent to the patient. Approximately 15% of breast malignancies will not be visualized mammographically. In the management of a palpable breast mass, a negative mammogram must not discourage biopsy of a clinically suspicious lesion. Electronically Signed By: Jaxson pena/abi:12/12/2021 12:07:08 letter sent: Normal Exam ACR BI-RADS Category 2: Benign Finding(s) [id number]
== END ==
PROVIDERS: Family Provider Physician Assistant; PCP Physician Assistant; Referring Provider Physician Assistant; Visit Provider Physician Assistant
DX: Z12.31 Encounter for screening mammogram for malignant neoplasm of breast (principal)
CPT/HCPCS: 77063; 77067

== ENCOUNTER 2022-01-15 14:30 | Outpatient (RCR) | payer MEDICARE, SELFPAY ==
[2020-04-04 14:14] VITALS: BMI 28.3
--- NOTE | 2021-10-08 12:08 | PT.OIE ---
Current Diagnoses Radiculopathy, lumbar region (10/08/21) Iliotibial band syndrome, right leg (10/08/21) Presence of right artificial knee joint (10/08/21) Past Medical History (Last Reviewed 04/08/20 @ 21:06 by DEDRICK Urban-) Chronic low back pain DDD (degenerative disc disease) Hearing loss Heartburn History of colonoscopy History of surgery on arm HLD (hyperlipidemia) Hx of bilateral cataract extraction (~2012) Hx of hemorrhoidectomy (~1976) Hx of knee surgery (~1959) Hypothyroid Macular degeneration of both eyes Osteoarthritis S/P epidural steroid injection Seasonal allergies Past Surgical History (Last Reviewed 04/08/20 @ 21:06 by DEDRICK Urban-FAHAD) History of colonoscopy History of surgery on arm Hx of bilateral cataract extraction (~2012) Hx of hemorrhoidectomy (~1976) Hx of knee surgery (~1959) S/P epidural steroid injection Visit Care Team Role Provider Type Symone Landrum PA-C Family Provider Non-Staff Primary Care Provider Specialty: Internal Medicine Address: [address] [place] [address], [address] Email: [email or web address] Germán Liu MD Attending Provider Physician Referring Provider Specialty: Orthopedics Orthopedic Surgery Address: [address] [place] [address], [address] Email: [email or web address] [facility] Initial Evaluation PT-OP-A Visit Information Start: 10/07/21 16:10 Freq: Status: Active Protocol: Document 10/08/21 10:31 SAK (Rec: 10/08/21 12:07 SAK [id number]) Out-Patient Physical Therapy Visit Information Visit Information Visit Type Initial Evaluation Visit Start Time 10:30 Visit Stop Time 11:25 Total Visit Minutes 25 Visit Number 1 Number of MURAL PAINTER Visits 0 Evaluation Information Evaluation Date 10/08/21 PT-OP-B Current Condition Start: 10/07/21 16:10 Freq: Status: Active Protocol: Document 10/08/21 10:31 SAK (Rec: 10/08/21 12:07 SAK [id number]) Current Condition History of Current Condition Onset Date 1 year Current Complaints right lateral thigh and LBP History of Current Condition Denies fall, gradual onset worsening LBP and lateral hip pain since having righ TKA 1 1 /2 years ago. Very limited in ability to take walks which she loves to do, increase in leg and back pain, unable to walk her usual 2-3 miles, has to stop at 1 - 1/4 miles. Has to use cane for balance and confidence. Doesn't stretch, uses some ice, no heat. Rare N/T, no giving way. Back and leg worse in am, and when unloading groceries. No regular exercise routine except walking. Previously has done some HEP from prior PT's. Also expresses a fear of stairs which sometimes even keeps her from going places, needs to have a railing and avoids curbs. Prior Treatments and Tests prior TKA 1 1/2 yrs ago. Recent x-ray of knee looked good per Dr. Liu. x-ray and MRI of spine: patient reports DDD, stenosis, arthritis Treatment Goals Patient/Caregiver Goals Would like to be able to walk more, be more confident with gait on stairs and curbs Prior Functional Status Baseline Function- ADL's Independent Baseline Function- Mobility Independent Baseline Function- Gait able to ambulate without cane 2 miles Current Functional Impairments (Reported) Functional Limitations- ADL's painful Functional Limitations- Mobility/Gait painful Functional Limitations- Recreation/ limited walking due to pain in Hobbies LB and right LE PT-OP-C Subjective Start: 10/07/21 16:10 Freq: Status: Active Protocol: Document 10/08/21 10:31 [facility] (Rec: 10/08/21 12:07 [facility] [id number]) Patient Questionnaires Lower Extremity Functional Scale LEFS Score 35 Oswestry Low Back Index Oswestry Score 34 OP-PT Pain Assessment Pain Assessment Grid Paper Pain Assessment Grid Completed Yes Location R knee Intensity 6 Scale Used Numeric (0 - 10) Description Aching,Pressure,Tender, Tightness Frequency Frequent Pain Aggravating Factors Activity,Standing,Walking Pain Alleviating Factors Cold PT-OP-D Balance Start: 10/07/21 16:10 Freq: Status: Active Protocol: Document 10/08/21 10:31 [facility] (Rec: 10/08/21 12:07 [facility] [id number]) OP-PT Balance Assessment Sitting Balance Static Sitting Balance Ability Normal Dynamic Sitting Balance Ability Normal Standing Balance Static Standing Balance Ability Fair Dynamic Standing Balance Ability Poor Balance Tests Single Limb Standing Single Limb- Right 0 Single Limb- Left 2 Tinetti Balance Assessment Sitting Balance Sitting Balance Steady, safe Arising from Chair Ability to Arise Able, uses arms to help Attempts to Arise Arises on 1st attempt Standing Balance Immediate Standing Balance Steady with support Standing Balance Steady, wide stance Nudged Response Staggers, catches self Standing with Eyes Closed Unsteady Turning Step Pattern Turning 360 Degrees Continuous steps Stability Turning 360 Degrees Unsteady, grabs/staggers Sitting Down Sitting Down Uses arms or unsteady Gait and Step Initiation of Gait No hesitancy Right Foot Step Length Does pass stance foot Right Foot Step Height Does not clear floor Left Foot Step Length Does pass stance foot Left Foot Step Height Does not clear floor Step Description Step Symmetry Step length not equal Step Continuity Steps appear continuous Gait Description Path Description Mild/moderate deviation Trunk Description No sway but posturing Walking Stance Heels together Scoring and Interpretation Tinetti Composite Score (points) 16 Interpretation of Scores High risk for falls(< 19) Weaver Fall Scale Copyright Permission PT-OP-G Mobility & Gait Start: 10/07/21 16:10 Freq: Status: Active Protocol: Document 10/08/21 10:31 [facility] (Rec: 10/08/21 12:07 [facility] [id number]) OP Gait Assessment Gait Gait Assistance Required: Independent Assistive Devices Assistive Device Straight Cane Gait Deviations General Gait Pattern Antalgic,Decreased Stride Length,Flexed Trunk Stair Climbing Evaluation Evaluation Level of Assist On Stairs Standby Assistance Devices Stair Climbing Assistive Devices Left Railing,Right Railing Technique/Endurance Stair Climbing Direction Descend Stair Climbing Technique Step Over Step Number of Steps Climbed 4 Comments Stair Climbing Comments 4 stairs and bilateral railing use. PT-OP-K Range of Motion Start: 10/07/21 16:10 Freq: Status: Active Protocol: Document 10/08/21 10:31 [facility] (Rec: 10/08/21 12:07 [facility] [id number]) Lumbar Spine Range of Motion Lumbar Spine Active Testing Position Standing Flexion 40 Extension 10 Rotation Left 35 Rotation Right 35 Lateral Flexion Left 20 Lateral Flexion Right 30 ROM Limitations Soft Tissue Tightness,Pain Comments pain when returning from forward flexion Hip Goniometric Range of Motion Hip Left Hip ROM WFL No Testing Position Supine Flexion w/Knee Flexed 110 Straight Leg Raise 60 Internal Rotation 15 External Rotation 50 Right Hip ROM WFL No Testing Position Supine Flexion w/Knee Flexed 110 Straight Leg Raise 65 Extension 0 Internal Rotation 45 External Rotation 25 Hip ROM Limitations Hip ROM Limitations Soft Tissue Tightness,Pain Ankle and Foot Goniometric Range of Motion Ankle and Foot Right Ankle/Foot ROM WFL No Comments mod tightness right gastroc Left Ankle/Foot ROM WFL Yes Ankle and Foot ROM Limitations ROM Limitations Soft Tissue Tightness PT-OP-L Special Tests Start: 10/07/21 16:10 Freq: Status: Active Protocol: Document 10/08/21 10:31 [facility] (Rec: 10/08/21 12:07 [facility] [id number]) Special Tests Lumbar Spine Special Tests Straight Leg Raise Test Results negative Hip Special Tests will Test Results positive right Piriformis Test Results positive right SANCHEZ Test Results negative Scour Test Test Results negative PT-OP-M Strength Start: 10/07/21 16:10 Freq: Status: Active Protocol: Document 10/08/21 10:31 [facility] (Rec: 10/08/21 12:07 [facility] [id number]) Trunk Strength Trunk Manual Muscle Testing Flexion 4- Good- Extension 4- Good- Hip Strength Hip Manual Muscle Testing Right Flexion (L2) 4 Good Extension (S1) 3+ Fair+ Abduction 4- Good- Adduction 4- Good- External Rotation 4- Good- Internal Rotation 4- Good- Left Flexion (L2) 4 Good Extension (S1) 3+ Fair+ Abduction 4- Good- Adduction 4 Good External Rotation 4- Good- Internal Rotation 4- Good- Knee Strength Knee Manual Muscle Testing Right Flexion (S2) 4 Good Extension (L3) 4 Good Comments pain lateral knee and patellar region with extension Left Flexion (S2) 4+ Good+ Extension (L3) 4+ Good+ Ankle/Foot Strength Ankle and Foot Manual Muscle Testing Right Dorsiflexion (L4) 4 Good Plantarflexion (S1) 4 Good Left Dorsiflexion (L4) 4+ Good+ Inversion 4+ Good+ PT-OP-Q Treatments Start: 10/07/21 16:10 Freq: Status: Active Protocol: Document 10/08/21 10:31 [facility] (Rec: 10/08/21 12:07 [facility] [id number]) Manual Therapy Treatment Taping 2 Body Location IT band Treatment Focus inhibition of pain Type of Tape Kinesio Tape Skin Inspection intact Self-Care/Home Management Treatment Education Patient Education Home Exercise Program,Pain Management Other Education find old HEP handouts core bracing with all activities stop to rest and stretch midway through a walk to see if able to go further. PT-OP-R Modalities Start: 10/07/21 16:10 Freq: Status: Active Protocol: Document 10/08/21 10:31 [facility] (Rec: 10/08/21 12:07 [facility] [id number]) Hot Pack/Cold Pack Treatment Cold Pack Location lumbar spine, right IT band Patient Position Supine PT-OP-T Assessment and Plan Start: 10/07/21 16:10 Freq: Status: Active Protocol: Document 10/08/21 10:31 [facility] (Rec: 10/08/21 12:07 [facility] [id number]) Physical Therapy Assessment Rehab Potential Rehabilitation Potential Good Evaluation Complexity Number of Personal Factors/Comorbidities 1-2 Number of Body Systems Impaired 3 Clinical Presentation at Evaluation Evolving Impairments Impairments Activity Tolerance,Pain,Soft Tissue Mobility,Strength Goals 5 Impairment balance dysfunction Impairment Tinetti gait and balance score 16/28 indicating high risk for falls. Usp Goal (LTG) Improve Tinetti score to at least 22/28 to decrease fall risk and improve confidence with mobility in the community . LTG Duration 01/06/22 4 Impairment difficulty ambulating on stairs and curbs Usp Goal (LTG) Patient able to ascend and descend stairs with one railing with alternating step pattern and be able to safely ascend and descend curb with least restrictive device LTG Duration 01/06/22 3 Impairment Patient unable to take usual walks due to back and right LE pain Usp Goal (LTG) Patient able to take walks of 2-3 miles with minimal to no increase in pain LTG Duration 01/06/22 2 Impairment pain LB and right lateral LE and knee 6/10 on pain scale Automobile Mechanic Goal (LTG) Decrease pain to no greater than 2/10 with all usual activiites. LTG Duration 01/06/22 1 Impairment activity intolerance related to LBP and right LE pain Impairment Oswestry disability index score 34% (lower number indicates less disability) LEFS 35% (higher number indicates improved function) Automobile Mechanic Goal (LTG) Decrease JOSE score to no greater than 15% as measure decreased disability and improved function Improve LEFS score to at least 70% as measure of improved function and activity tolerance LTG Duration 01/06/22 Assessment Summary Assessment Charlotte presents with function -limiting pain in low back and right LE. Her signs and symptoms constent with piriformis and IT band involvement tightness , as well as other core and hip muscle imbalances. Her activity level is also affected by lack of confidence in her gait on uneven surfaces with Tinetti gait and balance score in the high fall risk range. She would benefit from PT to decrease her pain, improve her strength and flexibility as well as core stabilization, and improve her functional balance to improve her quality of life. Patient demonstrated good understading of plan of care and agreed. Physical Therapy Plan Frequency and Duration Frequency of Treatment 2x/Week Duration of Treatment 12 weeks Plan of Care Start Date 10/08/21 Plan of Care End Date 01/06/22 Therapeutic Interventions Therapeutic Interventions Aquatic Therapy,Gait Training, Home Exercise Program,Manual Therapy,Neuromuscular Re- education,Patient/Caregiver Education,Self-Care/Home Management,Soft Tissue Mobilization,Taping, Therapeutic Activities, Therapeutic Exercises Modalities Cold Pack/Ice Massage,Electric Stimulation,Hot Packs, Infrared Therapy,Ultrasound Next Visit Focus/Plan Next Note Type Treatment Note Next Visit Plan Review HEP. Progress with core strengthening, IT band and piriformis flexibility, balance and gait retraining. Assess response to kinesiotape .
--- NOTE | 2021-10-08 12:08 | PT.OPPOC ---
Physical, Occupational & Speech Therapy At [facility] Current Diagnoses Radiculopathy, lumbar region (10/08/21) Iliotibial band syndrome, right leg (10/08/21) Presence of right artificial knee joint (10/08/21) Visit Care Team Role Provider Type Symone Landrum PA-C Family Provider Non-Staff Primary Care Provider Specialty: Internal Medicine Address: [address] [place] [address], [address] Email: [email or web address] Germán Liu MD Attending Provider Physician Referring Provider Specialty: Orthopedics Orthopedic Surgery Address: [address] [place] [address], [address] Email: [email or web address] Plan Of Care PT-OP-T Assessment and Plan Start: 10/07/21 16:10 Freq: Status: Active Protocol: Document 10/08/21 10:31 [facility] (Rec: 10/08/21 12:07 [facility] [id number]) Physical Therapy Assessment Rehab Potential Rehabilitation Potential Good Evaluation Complexity Number of Personal Factors/Comorbidities 1-2 Number of Body Systems Impaired 3 Clinical Presentation at Evaluation Evolving Impairments Impairments Activity Tolerance,Pain,Soft Tissue Mobility,Strength Goals 5 Impairment balance dysfunction Impairment Tinetti gait and balance score 16/28 indicating high risk for falls. Powder Worker Goal (LTG) Improve Tinetti score to at least 22/28 to decrease fall risk and improve confidence with mobility in the community . LTG Duration 01/06/22 4 Impairment difficulty ambulating on stairs and curbs Powder Worker Goal (LTG) Patient able to ascend and descend stairs with one railing with alternating step pattern and be able to safely ascend and descend curb with least restrictive device LTG Duration 01/06/22 3 Impairment Patient unable to take usual walks due to back and right LE pain Snf Goal (LTG) Patient able to take walks of 2-3 miles with minimal to no increase in pain LTG Duration 01/06/22 2 Impairment pain LB and right lateral LE and knee 6/10 on pain scale Snf Goal (LTG) Decrease pain to no greater than 2/10 with all usual activiites. LTG Duration 01/06/22 1 Impairment activity intolerance related to LBP and right LE pain Impairment Oswestry disability index score 34% (lower number indicates less disability) LEFS 35% (higher number indicates improved function) Snf Goal (LTG) Decrease JOSE score to no greater than 15% as measure decreased disability and improved function Improve LEFS score to at least 70% as measure of improved function and activity tolerance LTG Duration 01/06/22 Assessment Summary Assessment Charlotte presents with function -limiting pain in low back and right LE. Her signs and symptoms constent with piriformis and IT band involvement tightness , as well as other core and hip muscle imbalances. Her activity level is also affected by lack of confidence in her gait on uneven surfaces with Tinetti gait and balance score in the high fall risk range. She would benefit from PT to decrease her pain, improve her strength and flexibility as well as core stabilization, and improve her functional balance to improve her quality of life. Patient demonstrated good understading of plan of care and agreed. Physical Therapy Plan Frequency and Duration Frequency of Treatment 2x/Week Duration of Treatment 12 weeks Plan of Care Start Date 10/08/21 Plan of Care End Date 01/06/22 Therapeutic Interventions Therapeutic Interventions Aquatic Therapy,Gait Training, Home Exercise Program,Manual Therapy,Neuromuscular Re- education,Patient/Caregiver Education,Self-Care/Home Management,Soft Tissue Mobilization,Taping, Therapeutic Activities, Therapeutic Exercises Modalities Cold Pack/Ice Massage,Electric Stimulation,Hot Packs, Infrared Therapy,Ultrasound Next Visit Focus/Plan Next Note Type Treatment Note Next Visit Plan Review HEP. Progress with core strengthening, IT band and piriformis flexibility, balance and gait retraining. Assess response to kinesiotape . Plan of Care Dates Plan of Care Start Date 10/08/21 Plan of Care End Date 01/06/22 Electronically Signed by: Deanna Ellington, PT 10/08/21 [id number] Please Sign and Return: I have reviewed this Plan of Care and certify that the skilled therapy services above are required to meet the patient?s needs. Physician Signature Date Printed Name and Credentials Clinical Instructor Signature Printed Name and Credentials
--- NOTE | 2021-10-10 14:53 | PT.OTN ---
Current Diagnoses Radiculopathy, lumbar region (10/10/21) Iliotibial band syndrome, right leg (10/10/21) Presence of right artificial knee joint (10/10/21) Physical Therapy Treatment Note PT-OP-A Visit Information Start: 10/07/21 16:10 Freq: Status: Active Protocol: Document 10/10/21 13:46 SAK (Rec: 10/10/21 14:29 SAK [id number]) Out-Patient Physical Therapy Visit Information Visit Information Visit Type Treatment Note Visit Start Time 13:45 Visit Stop Time 14:40 Total Visit Minutes 55 Visit Number 2 Number of COMMERCIAL DRIVER'S LICENSE DRIVER Visits 0 PT-OP-B Current Condition Start: 10/07/21 16:10 Freq: Status: Active Protocol: Document 10/08/21 10:31 SAK (Rec: 10/08/21 12:07 SAK [id number]) Current Condition History of Current Condition Onset Date 1 year Current Complaints right lateral thigh and LBP History of Current Condition Denies fall, gradual onset worsening LBP and lateral hip pain since having righ TKA 1 1 /2 years ago. Very limited in ability to take walks which she loves to do, increase in leg and back pain, unable to walk her usual 2-3 miles, has to stop at 1 - 1/4 miles. Has to use cane for balance and confidence. Doesn't stretch, uses some ice, no heat. Rare N/T, no giving way. Back and leg worse in am, and when unloading groceries. No regular exercise routine except walking. Previously has done some HEP from prior PT's. Also expresses a fear of stairs which sometimes even keeps her from going places, needs to have a railing and avoids curbs. Prior Treatments and Tests prior TKA 1 1/2 yrs ago. Recent x-ray of knee looked good per Dr. Liu. x-ray and MRI of spine: patient reports DDD, stenosis, arthritis Treatment Goals Patient/Caregiver Goals Would like to be able to walk more, be more confident with gait on stairs and curbs Prior Functional Status Baseline Function- ADL's Independent Baseline Function- Mobility Independent Baseline Function- Gait able to ambulate without cane 2 miles Current Functional Impairments (Reported) Functional Limitations- ADL's painful Functional Limitations- Mobility/Gait painful Functional Limitations- Recreation/ limited walking due to pain in Hobbies LB and right LE PT-OP-C Subjective Start: 10/07/21 16:10 Freq: Status: Active Protocol: Document 10/10/21 13:46 SAK (Rec: 10/10/21 14:29 [facility] [id number]) OP-PT Subjective Patient Comments Patient Comments No new c/o, not feeling any better yet. Doing IT band stretch, didn't walk but rode exercise bike. PT-OP-D Balance Start: 10/07/21 16:10 Freq: Status: Active Protocol: Document 10/08/21 10:31 SAK (Rec: 10/08/21 12:07 [facility] [id number]) OP-PT Balance Assessment Sitting Balance Static Sitting Balance Ability Normal Dynamic Sitting Balance Ability Normal Standing Balance Static Standing Balance Ability Fair Dynamic Standing Balance Ability Poor Balance Tests Single Limb Standing Single Limb- Right 0 Single Limb- Left 2 Tinetti Balance Assessment Sitting Balance Sitting Balance Steady, safe Arising from Chair Ability to Arise Able, uses arms to help Attempts to Arise Arises on 1st attempt Standing Balance Immediate Standing Balance Steady with support Standing Balance Steady, wide stance Nudged Response Staggers, catches self Standing with Eyes Closed Unsteady Turning Step Pattern Turning 360 Degrees Continuous steps Stability Turning 360 Degrees Unsteady, grabs/staggers Sitting Down Sitting Down Uses arms or unsteady Gait and Step Initiation of Gait No hesitancy Right Foot Step Length Does pass stance foot Right Foot Step Height Does not clear floor Left Foot Step Length Does pass stance foot Left Foot Step Height Does not clear floor Step Description Step Symmetry Step length not equal Step Continuity Steps appear continuous Gait Description Path Description Mild/moderate deviation Trunk Description No sway but posturing Walking Stance Heels together Scoring and Interpretation Tinetti Composite Score (points) 16 Interpretation of Scores High risk for falls(< 19) Weaver Fall Scale Copyright Permission PT-OP-G Mobility & Gait Start: 10/07/21 16:10 Freq: Status: Active Protocol: Document 10/08/21 10:31 SAK (Rec: 10/08/21 12:07 [facility] [id number]) OP Gait Assessment Gait Gait Assistance Required: Independent Assistive Devices Assistive Device Straight Cane Gait Deviations General Gait Pattern Antalgic,Decreased Stride Length,Flexed Trunk Stair Climbing Evaluation Evaluation Level of Assist On Stairs Standby Assistance Devices Stair Climbing Assistive Devices Left Railing,Right Railing Technique/Endurance Stair Climbing Direction Descend Stair Climbing Technique Step Over Step Number of Steps Climbed 4 Comments Stair Climbing Comments 4 stairs and bilateral railing use. PT-OP-K Range of Motion Start: 10/07/21 16:10 Freq: Status: Active Protocol: Document 10/08/21 10:31 [facility] (Rec: 10/08/21 12:07 [facility] [id number]) Lumbar Spine Range of Motion Lumbar Spine Active Testing Position Standing Flexion 40 Extension 10 Rotation Left 35 Rotation Right 35 Lateral Flexion Left 20 Lateral Flexion Right 30 ROM Limitations Soft Tissue Tightness,Pain Comments pain when returning from forward flexion Hip Goniometric Range of Motion Hip Left Hip ROM WFL No Testing Position Supine Flexion w/Knee Flexed 110 Straight Leg Raise 60 Internal Rotation 15 External Rotation 50 Right Hip ROM WFL No Testing Position Supine Flexion w/Knee Flexed 110 Straight Leg Raise 65 Extension 0 Internal Rotation 45 External Rotation 25 Hip ROM Limitations Hip ROM Limitations Soft Tissue Tightness,Pain Ankle and Foot Goniometric Range of Motion Ankle and Foot Right Ankle/Foot ROM WFL No Comments mod tightness right gastroc Left Ankle/Foot ROM WFL Yes Ankle and Foot ROM Limitations ROM Limitations Soft Tissue Tightness PT-OP-L Special Tests Start: 10/07/21 16:10 Freq: Status: Active Protocol: Document 10/08/21 10:31 [facility] (Rec: 10/08/21 12:07 [facility] [id number]) Special Tests Lumbar Spine Special Tests Straight Leg Raise Test Results negative Hip Special Tests will Test Results positive right Piriformis Test Results positive right SANCHEZ Test Results negative Scour Test Test Results negative PT-OP-M Strength Start: 10/07/21 16:10 Freq: Status: Active Protocol: Document 10/08/21 10:31 [facility] (Rec: 10/08/21 12:07 [facility] [id number]) Trunk Strength Trunk Manual Muscle Testing Flexion 4- Good- Extension 4- Good- Hip Strength Hip Manual Muscle Testing Right Flexion (L2) 4 Good Extension (S1) 3+ Fair+ Abduction 4- Good- Adduction 4- Good- External Rotation 4- Good- Internal Rotation 4- Good- Left Flexion (L2) 4 Good Extension (S1) 3+ Fair+ Abduction 4- Good- Adduction 4 Good External Rotation 4- Good- Internal Rotation 4- Good- Knee Strength Knee Manual Muscle Testing Right Flexion (S2) 4 Good Extension (L3) 4 Good Comments pain lateral knee and patellar region with extension Left Flexion (S2) 4+ Good+ Extension (L3) 4+ Good+ Ankle/Foot Strength Ankle and Foot Manual Muscle Testing Right Dorsiflexion (L4) 4 Good Plantarflexion (S1) 4 Good Left Dorsiflexion (L4) 4+ Good+ Inversion 4+ Good+ PT-OP-Q Treatments Start: 10/07/21 16:10 Freq: Status: Active Protocol: Document 10/10/21 14:52 [facility] (Rec: 10/10/21 14:52 [facility] [id number]) Gait Training Gait Activity On level Device Used None Surface Level Treatment Focus gluteal activation, dec lateral sway Comments mirror for visual feedback. PT-OP-R Modalities Start: 10/07/21 16:10 Freq: Status: Active Protocol: Document 10/10/21 13:46 [facility] (Rec: 10/10/21 14:51 [facility] [id number]) Hot Pack/Cold Pack Treatment Hot Pack Location IT band Patient Position Hooklying Treatment Duration (minutes) 15 Patient Tolerance Good PT-OP-T Assessment and Plan Start: 10/07/21 16:10 Freq: Status: Active Protocol: Document 10/10/21 13:46 [facility] (Rec: 10/10/21 14:51 [facility] [id number]) Physical Therapy Assessment Rehab Potential Rehabilitation Potential Good Evaluation Complexity Number of Personal Factors/Comorbidities 1-2 Number of Body Systems Impaired 3 Clinical Presentation at Evaluation Evolving Impairments Impairments Activity Tolerance,Pain,Soft Tissue Mobility,Strength Goals 5 Impairment balance dysfunction Impairment Tinetti gait and balance score 16/28 indicating high risk for falls. Stockroom Supervisor Goal (LTG) Improve Tinetti score to at least 22/28 to decrease fall risk and improve confidence with mobility in the community . LTG Duration 01/06/22 4 Impairment difficulty ambulating on stairs and curbs Nursing Home Goal (LTG) Patient able to ascend and descend stairs with one railing with alternating step pattern and be able to safely ascend and descend curb with least restrictive device LTG Duration 01/06/22 3 Impairment Patient unable to take usual walks due to back and right LE pain Nursing Home Goal (LTG) Patient able to take walks of 2-3 miles with minimal to no increase in pain LTG Duration 01/06/22 2 Impairment pain LB and right lateral LE and knee 6/10 on pain scale Nursing Home Goal (LTG) Decrease pain to no greater than 2/10 with all usual activiites. LTG Duration 01/06/22 1 Impairment activity intolerance related to LBP and right LE pain Impairment Oswestry disability index score 34% (lower number indicates less disability) LEFS 35% (higher number indicates improved function) Nursing Home Goal (LTG) Decrease JOSE score to no greater than 15% as measure decreased disability and improved function Improve LEFS score to at least 70% as measure of improved function and activity tolerance LTG Duration 01/06/22 Assessment Summary Assessment Good tolerance for ther ex with modifications, cues for neutral LE alignment and for core activation. Issued written HEP and patient demonstrated good understanding, some ex familiar. Physical Therapy Plan Frequency and Duration Frequency of Treatment 2x/Week Duration of Treatment 12 weeks Plan of Care Start Date 10/08/21 Plan of Care End Date 01/06/22 Therapeutic Interventions Therapeutic Interventions Aquatic Therapy,Gait Training, Home Exercise Program,Manual Therapy,Neuromuscular Re- education,Patient/Caregiver Education,Self-Care/Home Management,Soft Tissue Mobilization,Taping, Therapeutic Activities, Therapeutic Exercises Modalities Cold Pack/Ice Massage,Electric Stimulation,Hot Packs, Infrared Therapy,Ultrasound Next Visit Focus/Plan Next Note Type Treatment Note Next Visit Plan Review HEP. Progress with core strengthening, IT band and piriformis flexibility, balance and gait retraining. Assess response to kinesiotape .
--- NOTE | 2021-10-15 12:20 | PT.OTN ---
Current Diagnoses Radiculopathy, lumbar region (10/15/21) Iliotibial band syndrome, right leg (10/15/21) Presence of right artificial knee joint (10/15/21) Physical Therapy Treatment Note PT-OP-A Visit Information Start: 10/07/21 16:10 Freq: Status: Active Protocol: Document 10/15/21 11:17 SAK (Rec: 10/15/21 12:20 SAK [id number]) Out-Patient Physical Therapy Visit Information Visit Information Visit Type Treatment Note Visit Start Time 11:18 Visit Stop Time 12:18 Total Visit Minutes 60 Visit Number 3 Number of BOATWRIGHT Visits 0 Evaluation Information Evaluation Date 10/08/21 PT-OP-B Current Condition Start: 10/07/21 16:10 Freq: Status: Active Protocol: Document 10/08/21 10:31 SAK (Rec: 10/08/21 12:07 [facility] [id number]) Current Condition History of Current Condition Onset Date 1 year Current Complaints right lateral thigh and LBP History of Current Condition Denies fall, gradual onset worsening LBP and lateral hip pain since having righ TKA 1 1 /2 years ago. Very limited in ability to take walks which she loves to do, increase in leg and back pain, unable to walk her usual 2-3 miles, has to stop at 1 - 1/4 miles. Has to use cane for balance and confidence. Doesn't stretch, uses some ice, no heat. Rare N/T, no giving way. Back and leg worse in am, and when unloading groceries. No regular exercise routine except walking. Previously has done some HEP from prior PT's. Also expresses a fear of stairs which sometimes even keeps her from going places, needs to have a railing and avoids curbs. Prior Treatments and Tests prior TKA 1 1/2 yrs ago. Recent x-ray of knee looked good per Dr. Liu. x-ray and MRI of spine: patient reports DDD, stenosis, arthritis Treatment Goals Patient/Caregiver Goals Would like to be able to walk more, be more confident with gait on stairs and curbs Prior Functional Status Baseline Function- ADL's Independent Baseline Function- Mobility Independent Baseline Function- Gait able to ambulate without cane 2 miles Current Functional Impairments (Reported) Functional Limitations- ADL's painful Functional Limitations- Mobility/Gait painful Functional Limitations- Recreation/ limited walking due to pain in Hobbies LB and right LE PT-OP-C Subjective Start: 10/07/21 16:10 Freq: Status: Active Protocol: Document 10/15/21 11:17 SAK (Rec: 10/15/21 12:20 [facility] [id number]) OP-PT Subjective Patient Comments Patient Comments using some muscles I haven't before, soreness but it's good . Trying to walk 1 1/4 miles per day, difficulty with upright posture. Denies pain with HEP PT-OP-D Balance Start: 10/07/21 16:10 Freq: Status: Active Protocol: Document 10/08/21 10:31 SAK (Rec: 10/08/21 12:07 [facility] [id number]) OP-PT Balance Assessment Sitting Balance Static Sitting Balance Ability Normal Dynamic Sitting Balance Ability Normal Standing Balance Static Standing Balance Ability Fair Dynamic Standing Balance Ability Poor Balance Tests Single Limb Standing Single Limb- Right 0 Single Limb- Left 2 Tinetti Balance Assessment Sitting Balance Sitting Balance Steady, safe Arising from Chair Ability to Arise Able, uses arms to help Attempts to Arise Arises on 1st attempt Standing Balance Immediate Standing Balance Steady with support Standing Balance Steady, wide stance Nudged Response Staggers, catches self Standing with Eyes Closed Unsteady Turning Step Pattern Turning 360 Degrees Continuous steps Stability Turning 360 Degrees Unsteady, grabs/staggers Sitting Down Sitting Down Uses arms or unsteady Gait and Step Initiation of Gait No hesitancy Right Foot Step Length Does pass stance foot Right Foot Step Height Does not clear floor Left Foot Step Length Does pass stance foot Left Foot Step Height Does not clear floor Step Description Step Symmetry Step length not equal Step Continuity Steps appear continuous Gait Description Path Description Mild/moderate deviation Trunk Description No sway but posturing Walking Stance Heels together Scoring and Interpretation Tinetti Composite Score (points) 16 Interpretation of Scores High risk for falls(< 19) Weaver Fall Scale Copyright Permission PT-OP-G Mobility & Gait Start: 10/07/21 16:10 Freq: Status: Active Protocol: Document 10/08/21 10:31 SAK (Rec: 10/08/21 12:07 [facility] [id number]) OP Gait Assessment Gait Gait Assistance Required: Independent Assistive Devices Assistive Device Straight Cane Gait Deviations General Gait Pattern Antalgic,Decreased Stride Length,Flexed Trunk Stair Climbing Evaluation Evaluation Level of Assist On Stairs Standby Assistance Devices Stair Climbing Assistive Devices Left Railing,Right Railing Technique/Endurance Stair Climbing Direction Descend Stair Climbing Technique Step Over Step Number of Steps Climbed 4 Comments Stair Climbing Comments 4 stairs and bilateral railing use. PT-OP-K Range of Motion Start: 10/07/21 16:10 Freq: Status: Active Protocol: Document 10/08/21 10:31 [facility] (Rec: 10/08/21 12:07 [facility] [id number]) Lumbar Spine Range of Motion Lumbar Spine Active Testing Position Standing Flexion 40 Extension 10 Rotation Left 35 Rotation Right 35 Lateral Flexion Left 20 Lateral Flexion Right 30 ROM Limitations Soft Tissue Tightness,Pain Comments pain when returning from forward flexion Hip Goniometric Range of Motion Hip Left Hip ROM WFL No Testing Position Supine Flexion w/Knee Flexed 110 Straight Leg Raise 60 Internal Rotation 15 External Rotation 50 Right Hip ROM WFL No Testing Position Supine Flexion w/Knee Flexed 110 Straight Leg Raise 65 Extension 0 Internal Rotation 45 External Rotation 25 Hip ROM Limitations Hip ROM Limitations Soft Tissue Tightness,Pain Ankle and Foot Goniometric Range of Motion Ankle and Foot Right Ankle/Foot ROM WFL No Comments mod tightness right gastroc Left Ankle/Foot ROM WFL Yes Ankle and Foot ROM Limitations ROM Limitations Soft Tissue Tightness PT-OP-L Special Tests Start: 10/07/21 16:10 Freq: Status: Active Protocol: Document 10/08/21 10:31 [facility] (Rec: 10/08/21 12:07 [facility] [id number]) Special Tests Lumbar Spine Special Tests Straight Leg Raise Test Results negative Hip Special Tests will Test Results positive right Piriformis Test Results positive right SANCHEZ Test Results negative Scour Test Test Results negative PT-OP-M Strength Start: 10/07/21 16:10 Freq: Status: Active Protocol: Document 10/08/21 10:31 [facility] (Rec: 10/08/21 12:07 [facility] [id number]) Trunk Strength Trunk Manual Muscle Testing Flexion 4- Good- Extension 4- Good- Hip Strength Hip Manual Muscle Testing Right Flexion (L2) 4 Good Extension (S1) 3+ Fair+ Abduction 4- Good- Adduction 4- Good- External Rotation 4- Good- Internal Rotation 4- Good- Left Flexion (L2) 4 Good Extension (S1) 3+ Fair+ Abduction 4- Good- Adduction 4 Good External Rotation 4- Good- Internal Rotation 4- Good- Knee Strength Knee Manual Muscle Testing Right Flexion (S2) 4 Good Extension (L3) 4 Good Comments pain lateral knee and patellar region with extension Left Flexion (S2) 4+ Good+ Extension (L3) 4+ Good+ Ankle/Foot Strength Ankle and Foot Manual Muscle Testing Right Dorsiflexion (L4) 4 Good Plantarflexion (S1) 4 Good Left Dorsiflexion (L4) 4+ Good+ Inversion 4+ Good+ PT-OP-Q Treatments Start: 10/07/21 16:10 Freq: Status: Active Protocol: Document 10/15/21 11:17 [facility] (Rec: 10/15/21 12:20 [facility] [id number]) Cardio Equipment Recumbent Stepper (Sci-Fit) Duration (Minutes) 7 Resistance 1.5 Seat Position 11 Other UE's and LE's 3 min, LE's only 4 min. Gym Equipment Sport Cord green cord Exercise Details forward Cord/Resistance green Reps/Duration 5x Comments mirror for visual feedback, cues for upright posture, gluteal activation Therapeutic Exercises Supine Exercises hip flexor stretch Side bilateral Reps/Minutes 2x30 Comments manual assist, cues for opp knee bent Standing Exercises wall posture Reps/Minutes 6x5 squats Resistance L1 TB around thighs Equipment Used mirror for visual feedback Reps/Minutes 10x2 HC stretch Reps/Minutes 30x 2 Gait Training Gait Activity On level Device Used None Surface Level Treatment Focus gluteal activation, dec lateral sway Comments mirror for visual feedback. Self-Care/Home Management Treatment Education Patient Education Home Exercise Program,Pain Management Other Education issued handout of wall posture exercise, not supine hip flexor stretch yet (needs further practice for safety) PT-OP-R Modalities Start: 10/07/21 16:10 Freq: Status: Active Protocol: Document 10/15/21 11:17 [facility] (Rec: 10/15/21 12:20 [facility] [id number]) Hot Pack/Cold Pack Treatment Hot Pack Location IT band Patient Position Hooklying Treatment Duration (minutes) 15 Patient Tolerance Good PT-OP-T Assessment and Plan Start: 10/07/21 16:10 Freq: Status: Active Protocol: Document 10/15/21 11:17 [facility] (Rec: 10/15/21 12:20 [facility] [id number]) Physical Therapy Assessment Rehab Potential Rehabilitation Potential Good Evaluation Complexity Number of Personal Factors/Comorbidities 1-2 Number of Body Systems Impaired 3 Clinical Presentation at Evaluation Evolving Impairments Impairments Activity Tolerance,Pain,Soft Tissue Mobility,Strength Goals 5 Impairment balance dysfunction Impairment Tinetti gait and balance score 16/28 indicating high risk for falls. Vp Marketing Goal (LTG) Improve Tinetti score to at least 22/28 to decrease fall risk and improve confidence with mobility in the community . LTG Duration 01/06/22 4 Impairment difficulty ambulating on stairs and curbs [employer] Goal (LTG) Patient able to ascend and descend stairs with one railing with alternating step pattern and be able to safely ascend and descend curb with least restrictive device LTG Duration 01/06/22 3 Impairment Patient unable to take usual walks due to back and right LE pain [employer] Goal (LTG) Patient able to take walks of 2-3 miles with minimal to no increase in pain LTG Duration 01/06/22 2 Impairment pain LB and right lateral LE and knee 6/10 on pain scale [facility] Goal (LTG) Decrease pain to no greater than 2/10 with all usual activiites. LTG Duration 01/06/22 1 Impairment activity intolerance related to LBP and right LE pain Impairment Oswestry disability index score 34% (lower number indicates less disability) LEFS 35% (higher number indicates improved function) [facility] Goal (LTG) Decrease JOSE score to no greater than 15% as measure decreased disability and improved function Improve LEFS score to at least 70% as measure of improved function and activity tolerance LTG Duration 01/06/22 Assessment Summary Assessment Increased emphasis on postural alignment with wall posture ex, hip flexor stretching, and use of sport cord with mirror to encourage upright alignment, correct muscle activation sequencing. Also mirror for chair squat with L1 TB to encourage neutral LE alignment and correct performance. Physical Therapy Plan Frequency and Duration Frequency of Treatment 2x/Week Duration of Treatment 12 weeks Plan of Care Start Date 10/08/21 Plan of Care End Date 01/06/22 Therapeutic Interventions Therapeutic Interventions Aquatic Therapy,Gait Training, Home Exercise Program,Manual Therapy,Neuromuscular Re- education,Patient/Caregiver Education,Self-Care/Home Management,Soft Tissue Mobilization,Taping, Therapeutic Activities, Therapeutic Exercises Modalities Cold Pack/Ice Massage,Electric Stimulation,Hot Packs, Infrared Therapy,Ultrasound Next Visit Focus/Plan Next Note Type Treatment Note Next Visit Plan piriformis stretching, review supine hip flexor stretch and wall posture, progress challenged gait with sport cord. Consider use of treadmill for gait training.
--- NOTE | 2021-10-17 15:15 | PT.OTN ---
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 Very limited in ability to take walks which she loves to do, increase in leg and back pain, unable to walk her usual 2-3 miles, has to stop at 1 - 1/4 miles. Has to use cane for balance and confidence. Doesn't stretch, uses some ice, no heat. Rare N/T, no giving way. Back and leg worse in am, and when unloading groceries. No regular exercise routine except walking. Previously has done some HEP from prior PT's. Also expresses a fear of stairs which sometimes even keeps her from going places, needs to have a railing and avoids curbs. Prior Treatments and Tests prior TKA 1 1/2 yrs ago. Recent x-ray of knee looked good per Dr. Liu. x-ray and MRI of spine: patient reports DDD, stenosis, arthritis Treatment Goals Patient/Caregiver Goals Would like to be able to walk more, be more confident with gait on stairs and curbs Prior Functional Status Baseline Function- ADL's Independent Baseline Function- Mobility Independent Baseline Function- Gait able to ambulate without cane 2 miles Current Functional Impairments (Reported) Functional Limitations- ADL's painful Functional Limitations- Mobility/Gait painful Functional Limitations- Recreation/ limited walking due to pain in Hobbies LB and right LE PT-OP-C Subjective Start: 10/07/21 16:10 Freq: Status: Active Protocol: Document 10/17/21 14:30 SAK (Rec: 10/17/21 15:15 [facility] [id number]) OP-PT Subjective Patient Comments Patient Comments Tired but ok after last PT session, sore in back today after going grocery shopping; feels she can't lift with her knees well due to knee pain. PT-OP-D Balance Start: 10/07/21 16:10 Freq: Status: Active Protocol: Document 10/08/21 10:31 SAK (Rec: 10/08/21 12:07 [facility] [id number]) OP-PT Balance Assessment Sitting Balance Static Sitting Balance Ability Normal Dynamic Sitting Balance Ability Normal Standing Balance Static Standing Balance Ability Fair Dynamic Standing Balance Ability Poor Balance Tests Single Limb Standing Single Limb- Right 0 Single Limb- Left 2 Tinetti Balance Assessment Sitting Balance Sitting Balance Steady, safe Arising from Chair Ability to Arise Able, uses arms to help Attempts to Arise Arises on 1st attempt Standing Balance Immediate Standing Balance Steady with support Standing Balance Steady, wide stance Nudged Response Staggers, catches self Standing with Eyes Closed Unsteady Turning Step Pattern Turning 360 Degrees Continuous steps Stability Turning 360 Degrees Unsteady, grabs/staggers Sitting Down Sitting Down Uses arms or unsteady Gait and Step Initiation of Gait No hesitancy Right Foot Step Length Does pass stance foot Right Foot Step Height Does not clear floor Left Foot Step Length Does pass stance foot Left Foot Step Height Does not clear floor Step Description Step Symmetry Step length not equal Step Continuity Steps appear continuous Gait Description Path Description Mild/moderate deviation Trunk Description No sway but posturing Walking Stance Heels together Scoring and Interpretation Tinetti Composite Score (points) 16 Interpretation of Scores High risk for falls(< 19) Weaver Fall Scale Copyright Permission PT-OP-G Mobility & Gait Start: 10/07/21 16:10 Freq: Status: Active Protocol: Document 10/08/21 10:31 [facility] (Rec: 10/08/21 12:07 [facility] [id number]) OP Gait Assessment Gait Gait Assistance Required: Independent Assistive Devices Assistive Device Straight Cane Gait Deviations General Gait Pattern Antalgic,Decreased Stride Length,Flexed Trunk Stair Climbing Evaluation Evaluation Level of Assist On Stairs Standby Assistance Devices Stair Climbing Assistive Devices Left Railing,Right Railing Technique/Endurance Stair Climbing Direction Descend Stair Climbing Technique Step Over Step Number of Steps Climbed 4 Comments Stair Climbing Comments 4 stairs and bilateral railing use. PT-OP-K Range of Motion Start: 10/07/21 16:10 Freq: Status: Active Protocol: Document 10/08/21 10:31 [facility] (Rec: 10/08/21 12:07 [facility] [id number]) Lumbar Spine Range of Motion Lumbar Spine Active Testing Position Standing Flexion 40 Extension 10 Rotation Left 35 Rotation Right 35 Lateral Flexion Left 20 Lateral Flexion Right 30 ROM Limitations Soft Tissue Tightness,Pain Comments pain when returning from forward flexion Hip Goniometric Range of Motion Hip Left Hip ROM WFL No Testing Position Supine Flexion w/Knee Flexed 110 Straight Leg Raise 60 Internal Rotation 15 External Rotation 50 Right Hip ROM WFL No Testing Position Supine Flexion w/Knee Flexed 110 Straight Leg Raise 65 Extension 0 Internal Rotation 45 External Rotation 25 Hip ROM Limitations Hip ROM Limitations Soft Tissue Tightness,Pain Ankle and Foot Goniometric Range of Motion Ankle and Foot Right Ankle/Foot ROM WFL No Comments mod tightness right gastroc Left Ankle/Foot ROM WFL Yes Ankle and Foot ROM Limitations ROM Limitations Soft Tissue Tightness PT-OP-L Special Tests Start: 10/07/21 16:10 Freq: Status: Active Protocol: Document 10/08/21 10:31 [facility] (Rec: 10/08/21 12:07 [facility] [id number]) Special Tests Lumbar Spine Special Tests Straight Leg Raise Test Results negative Hip Special Tests will Test Results positive right Piriformis Test Results positive right SANCHEZ Test Results negative Scour Test Test Results negative PT-OP-M Strength Start: 10/07/21 16:10 Freq: Status: Active Protocol: Document 10/08/21 10:31 [facility] (Rec: 10/08/21 12:07 [facility] [id number]) Trunk Strength Trunk Manual Muscle Testing Flexion 4- Good- Extension 4- Good- Hip Strength Hip Manual Muscle Testing Right Flexion (L2) 4 Good Extension (S1) 3+ Fair+ Abduction 4- Good- Adduction 4- Good- External Rotation 4- Good- Internal Rotation 4- Good- Left Flexion (L2) 4 Good Extension (S1) 3+ Fair+ Abduction 4- Good- Adduction 4 Good External Rotation 4- Good- Internal Rotation 4- Good- Knee Strength Knee Manual Muscle Testing Right Flexion (S2) 4 Good Extension (L3) 4 Good Comments pain lateral knee and patellar region with extension Left Flexion (S2) 4+ Good+ Extension (L3) 4+ Good+ Ankle/Foot Strength Ankle and Foot Manual Muscle Testing Right Dorsiflexion (L4) 4 Good Plantarflexion (S1) 4 Good Left Dorsiflexion (L4) 4+ Good+ Inversion 4+ Good+ PT-OP-Q Treatments Start: 10/07/21 16:10 Freq: Status: Active Protocol: Document 10/17/21 14:30 [facility] (Rec: 10/17/21 15:15 [facility] [id number]) Cardio Equipment Recumbent Stepper (Sci-Fit) Duration (Minutes) 8 Resistance 1.7 Seat Position 11 Other UE's and LE's 4 min, LE's only 4 min. Therapeutic Exercises Standing Exercises sit to stand Equipment Used 2 pillows Reps/Minutes 10x resisted sidestepping Resistance yellow band Equipment Used parallel bars Reps/Minutes 2 laps heel raise, toe raise Reps/Minutes 10x squats Resistance L1 TB around thighs Equipment Used mirror for visual feedback Reps/Minutes 10x2 HC stretch Reps/Minutes 30x 2 Gait Training Gait Activity On level Device Used None Surface Level Treatment Focus gluteal activation, dec lateral sway Comments mirror for visual feedback. Neuro Re-Education Treatment Balance Activities tiltboard Details bal fwd/bck, side/side Reps/Duration 10x ea PT-OP-R Modalities Start: 10/07/21 16:10 Freq: Status: Active Protocol: Document 10/17/21 14:30 [facility] (Rec: 10/17/21 15:15 [facility] [id number]) Hot Pack/Cold Pack Treatment Hot Pack Location IT band Patient Position Hooklying Treatment Duration (minutes) 15 Patient Tolerance Good PT-OP-T Assessment and Plan Start: 10/07/21 16:10 Freq: Status: Active Protocol: Document 10/17/21 14:30 [facility] (Rec: 10/17/21 15:15 [facility] [id number]) Physical Therapy Assessment Goals 5 Impairment balance dysfunction Impairment Tinetti gait and balance score 16/28 indicating high risk for falls. [facility] Goal (LTG) Improve Tinetti score to at least 22/28 to decrease fall risk and improve confidence with mobility in the community . LTG Duration 01/06/22 4 Impairment difficulty ambulating on stairs and curbs [facility] Goal (LTG) Patient able to ascend and descend stairs with one railing with alternating step pattern and be able to safely ascend and descend curb with least restrictive device LTG Duration 01/06/22 3 Impairment Patient unable to take usual walks due to back and right LE pain [facility] Goal (LTG) Patient able to take walks of 2-3 miles with minimal to no increase in pain LTG Duration 01/06/22 2 Impairment pain LB and right lateral LE and knee 6/10 on pain scale Soil Checker Goal (LTG) Decrease pain to no greater than 2/10 with all usual activiites. LTG Duration 01/06/22 1 Impairment activity intolerance related to LBP and right LE pain Impairment Oswestry disability index score 34% (lower number indicates less disability) LEFS 35% (higher number indicates improved function) Soil Checker Goal (LTG) Decrease JOSE score to no greater than 15% as measure decreased disability and improved function Improve LEFS score to at least 70% as measure of improved function and activity tolerance LTG Duration 01/06/22 Assessment Summary Assessment Progressed ther ex, emphasis on neutral LE alignment with sit to stand. ADded sidestepping with band, tiltboard, increased time on Sci-Fit. Physical Therapy Plan Frequency and Duration Frequency of Treatment 2x/Week Duration of Treatment 12 weeks Plan of Care Start Date 10/08/21 Plan of Care End Date 01/06/22 Therapeutic Interventions Therapeutic Interventions Aquatic Therapy,Gait Training, Home Exercise Program,Manual Therapy,Neuromuscular Re- education,Patient/Caregiver Education,Self-Care/Home Management,Soft Tissue Mobilization,Taping, Therapeutic Activities, Therapeutic Exercises Modalities Cold Pack/Ice Massage,Electric Stimulation,Hot Packs, Infrared Therapy,Ultrasound Next Visit Focus/Plan Next Note Type Treatment Note Next Visit Plan piriformis stretching, review supine hip flexor stretch and wall posture, progress challenged gait with sport cord. Consider use of treadmill for gait training.
--- NOTE | 2021-10-22 17:11 | PT.OTN ---
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 Very limited in ability to take walks which she loves to do, increase in leg and back pain, unable to walk her usual 2-3 miles, has to stop at 1 - 1/4 miles. Has to use cane for balance and confidence. Doesn't stretch, uses some ice, no heat. Rare N/T, no giving way. Back and leg worse in am, and when unloading groceries. No regular exercise routine except walking. Previously has done some HEP from prior PT's. Also expresses a fear of stairs which sometimes even keeps her from going places, needs to have a railing and avoids curbs. Prior Treatments and Tests prior TKA 1 1/2 yrs ago. Recent x-ray of knee looked good per Dr. Liu. x-ray and MRI of spine: patient reports DDD, stenosis, arthritis Treatment Goals Patient/Caregiver Goals Would like to be able to walk more, be more confident with gait on stairs and curbs Prior Functional Status Baseline Function- ADL's Independent Baseline Function- Mobility Independent Baseline Function- Gait able to ambulate without cane 2 miles Current Functional Impairments (Reported) Functional Limitations- ADL's painful Functional Limitations- Mobility/Gait painful Functional Limitations- Recreation/ limited walking due to pain in Hobbies LB and right LE PT-OP-C Subjective Start: 10/07/21 16:10 Freq: Status: Active Protocol: Document 10/22/21 11:15 SAK (Rec: 10/22/21 11:18 [facility] [id number]) OP-PT Subjective Patient Comments Patient Comments [facility] [place]. Doing HEP daily. The only pain with exercises is with bridging, sometimes back of one thigh, and sometimes the back of the other. Doesn' t have another appointment scheduled until 11/12/21. Trying to work on her walking with emphasis on decreased lateral sway and improved activation of core and glutes. PT-OP-D Balance Start: 10/07/21 16:10 Freq: Status: Active Protocol: Document 10/08/21 10:31 SAK (Rec: 10/08/21 12:07 [facility] [id number]) OP-PT Balance Assessment Sitting Balance Static Sitting Balance Ability Normal Dynamic Sitting Balance Ability Normal Standing Balance Static Standing Balance Ability Fair Dynamic Standing Balance Ability Poor Balance Tests Single Limb Standing Single Limb- Right 0 Single Limb- Left 2 Tinetti Balance Assessment Sitting Balance Sitting Balance Steady, safe Arising from Chair Ability to Arise Able, uses arms to help Attempts to Arise Arises on 1st attempt Standing Balance Immediate Standing Balance Steady with support Standing Balance Steady, wide stance Nudged Response Staggers, catches self Standing with Eyes Closed Unsteady Turning Step Pattern Turning 360 Degrees Continuous steps Stability Turning 360 Degrees Unsteady, grabs/staggers Sitting Down Sitting Down Uses arms or unsteady Gait and Step Initiation of Gait No hesitancy Right Foot Step Length Does pass stance foot Right Foot Step Height Does not clear floor Left Foot Step Length Does pass stance foot Left Foot Step Height Does not clear floor Step Description Step Symmetry Step length not equal Step Continuity Steps appear continuous Gait Description Path Description Mild/moderate deviation Trunk Description No sway but posturing Walking Stance Heels together Scoring and Interpretation Tinetti Composite Score (points) 16 Interpretation of Scores High risk for falls(< 19) Weaver Fall Scale Copyright Permission PT-OP-G Mobility & Gait Start: 10/07/21 16:10 Freq: Status: Active Protocol: Document 10/08/21 10:31 SAK (Rec: 10/08/21 12:07 [facility] [id number]) OP Gait Assessment Gait Gait Assistance Required: Independent Assistive Devices Assistive Device Straight Cane Gait Deviations General Gait Pattern Antalgic,Decreased Stride Length,Flexed Trunk Stair Climbing Evaluation Evaluation Level of Assist On Stairs Standby Assistance Devices Stair Climbing Assistive Devices Left Railing,Right Railing Technique/Endurance Stair Climbing Direction Descend Stair Climbing Technique Step Over Step Number of Steps Climbed 4 Comments Stair Climbing Comments 4 stairs and bilateral railing use. PT-OP-K Range of Motion Start: 10/07/21 16:10 Freq: Status: Active Protocol: Document 10/08/21 10:31 [facility] (Rec: 10/08/21 12:07 [facility] [id number]) Lumbar Spine Range of Motion Lumbar Spine Active Testing Position Standing Flexion 40 Extension 10 Rotation Left 35 Rotation Right 35 Lateral Flexion Left 20 Lateral Flexion Right 30 ROM Limitations Soft Tissue Tightness,Pain Comments pain when returning from forward flexion Hip Goniometric Range of Motion Hip Left Hip ROM WFL No Testing Position Supine Flexion w/Knee Flexed 110 Straight Leg Raise 60 Internal Rotation 15 External Rotation 50 Right Hip ROM WFL No Testing Position Supine Flexion w/Knee Flexed 110 Straight Leg Raise 65 Extension 0 Internal Rotation 45 External Rotation 25 Hip ROM Limitations Hip ROM Limitations Soft Tissue Tightness,Pain Ankle and Foot Goniometric Range of Motion Ankle and Foot Right Ankle/Foot ROM WFL No Comments mod tightness right gastroc Left Ankle/Foot ROM WFL Yes Ankle and Foot ROM Limitations ROM Limitations Soft Tissue Tightness PT-OP-L Special Tests Start: 10/07/21 16:10 Freq: Status: Active Protocol: Document 10/08/21 10:31 [facility] (Rec: 10/08/21 12:07 [facility] [id number]) Special Tests Lumbar Spine Special Tests Straight Leg Raise Test Results negative Hip Special Tests will Test Results positive right Piriformis Test Results positive right SANCHEZ Test Results negative Scour Test Test Results negative PT-OP-M Strength Start: 10/07/21 16:10 Freq: Status: Active Protocol: Document 10/08/21 10:31 [facility] (Rec: 10/08/21 12:07 [facility] [id number]) Trunk Strength Trunk Manual Muscle Testing Flexion 4- Good- Extension 4- Good- Hip Strength Hip Manual Muscle Testing Right Flexion (L2) 4 Good Extension (S1) 3+ Fair+ Abduction 4- Good- Adduction 4- Good- External Rotation 4- Good- Internal Rotation 4- Good- Left Flexion (L2) 4 Good Extension (S1) 3+ Fair+ Abduction 4- Good- Adduction 4 Good External Rotation 4- Good- Internal Rotation 4- Good- Knee Strength Knee Manual Muscle Testing Right Flexion (S2) 4 Good Extension (L3) 4 Good Comments pain lateral knee and patellar region with extension Left Flexion (S2) 4+ Good+ Extension (L3) 4+ Good+ Ankle/Foot Strength Ankle and Foot Manual Muscle Testing Right Dorsiflexion (L4) 4 Good Plantarflexion (S1) 4 Good Left Dorsiflexion (L4) 4+ Good+ Inversion 4+ Good+ PT-OP-Q Treatments Start: 10/07/21 16:10 Freq: Status: Active Protocol: Document 10/22/21 11:15 [facility] (Rec: 10/22/21 11:17 [facility] [id number]) Cardio Equipment Recumbent Stepper (Sci-Fit) Duration (Minutes) 8 Resistance 1.8 Seat Position 11 Other UE's and LE's 5 min, LE's only 5 min. Therapeutic Exercises Sidelying Exercises hip abduction Reps/Minutes 5x Comments verbal and manual cues for form. Sitting Exercises hamstring stretch Reps/Minutes 2x30 piriformis stretch Reps/Minutes 2x30 Standing Exercises row, shld ext Resistance L1 TB Reps/Minutes 10x sit to stand Equipment Used 2 pillows Reps/Minutes 10x resisted sidestepping Resistance yellow band Equipment Used parallel bars Reps/Minutes 2 laps squats Resistance L1 TB around thighs Equipment Used mirror for visual feedback Reps/Minutes 10x2 HC stretch Reps/Minutes 30x 2 Gait Training Gait Activity On level Device Used None Surface Level Treatment Focus gluteal activation, dec lateral sway Comments mirror for visual feedback. Neuro Re-Education Treatment Balance Activities tiltboard Details bal fwd/bck, side/side Reps/Duration 10x ea PT-OP-R Modalities Start: 10/07/21 16:10 Freq: Status: Active Protocol: Document 10/22/21 11:15 [facility] (Rec: 10/22/21 11:18 [facility] [id number]) Hot Pack/Cold Pack Treatment Hot Pack Location IT band Patient Position Hooklying Treatment Duration (minutes) 15 Patient Tolerance Good PT-OP-T Assessment and Plan Start: 10/07/21 16:10 Freq: Status: Active Protocol: Document 10/22/21 11:15 JAEL (Rec: 10/22/21 11:17 [facility] [id number]) Physical Therapy Assessment Goals 5 Impairment balance dysfunction Impairment Tinetti gait and balance score 16/28 indicating high risk for falls. [facility] Goal (LTG) Improve Tinetti score to at least 22/28 to decrease fall risk and improve confidence with mobility in the community . LTG Duration 01/06/22 4 Impairment difficulty ambulating on stairs and curbs [facility] Goal (LTG) Patient able to ascend and descend stairs with one railing with alternating step pattern and be able to safely ascend and descend curb with least restrictive device LTG Duration 01/06/22 3 Impairment Patient unable to take usual walks due to back and right LE pain Environmental Services Lead Goal (LTG) Patient able to take walks of 2-3 miles with minimal to no increase in pain LTG Duration 01/06/22 2 Impairment pain LB and right lateral LE and knee 6/10 on pain scale Environmental Services Lead Goal (LTG) Decrease pain to no greater than 2/10 with all usual activiites. LTG Duration 01/06/22 1 Impairment activity intolerance related to LBP and right LE pain Impairment Oswestry disability index score 34% (lower number indicates less disability) LEFS 35% (higher number indicates improved function) Environmental Services Lead Goal (LTG) Decrease JOSE score to no greater than 15% as measure decreased disability and improved function Improve LEFS score to at least 70% as measure of improved function and activity tolerance LTG Duration 01/06/22 Assessment Summary Assessment Continues to progress with exercises, now able to do a few sidelying hip abduction repetitions; couldn't do at evaluation. Good compliance to HEP. Gait still characterized by excess lateral sway. Low tolerance for standing due to stenosis, though was able to tolerate 3 min on treadmill at 1.2mph. Physical Therapy Plan Frequency and Duration Frequency of Treatment 2x/Week Duration of Treatment 12 weeks Plan of Care Start Date 10/08/21 Plan of Care End Date 01/06/22 Therapeutic Interventions Therapeutic Interventions Aquatic Therapy,Gait Training, Home Exercise Program,Manual Therapy,Neuromuscular Re- education,Patient/Caregiver Education,Self-Care/Home Management,Soft Tissue Mobilization,Taping, Therapeutic Activities, Therapeutic Exercises Modalities Cold Pack/Ice Massage,Electric Stimulation,Hot Packs, Infrared Therapy,Ultrasound Next Visit Focus/Plan Next Note Type Treatment Note Next Visit Plan Challenged gait with sport cord, further exercise progression as tolerated for strengthening and pain management, core stab.
--- NOTE | 2021-11-12 09:44 | PT.OTN ---
Current Diagnoses Radiculopathy, lumbar region (11/12/21) Iliotibial band syndrome, right leg (11/12/21) Presence of right artificial knee joint (11/12/21) Physical Therapy Treatment Note PT-OP-A Visit Information Start: 10/07/21 16:10 Freq: Status: Active Protocol: Document 11/12/21 09:00 SAK (Rec: 11/12/21 09:44 [facility] [id number]) Out-Patient Physical Therapy Visit Information Visit Information Visit Type Treatment Note Visit Start Time 09:00 Visit Stop Time 09:40 Total Visit Minutes 40 Visit Number 6 Number of [employer]ER [employer]ATIC Visits 0 Evaluation Information Evaluation Date 10/08/21 PT-OP-B Current Condition Start: 10/07/21 16:10 Freq: Status: Active Protocol: Document 10/08/21 10:31 SAK (Rec: 10/08/21 12:07 [facility] [id number]) Current Condition History of Current Condition Onset Date 1 year Current Complaints right lateral thigh and LBP History of Current Condition Denies fall, gradual onset worsening LBP and lateral hip pain since having righ TKA 1 1 /2 years ago. Very limited in ability to take walks which she loves to do, increase in leg and back pain, unable to walk her usual 2-3 miles, has to stop at 1 - 1/4 miles. Has to use cane for balance and confidence. Doesn't stretch, uses some ice, no heat. Rare N/T, no giving way. Back and leg worse in am, and when unloading groceries. No regular exercise routine except walking. Previously has done some HEP from prior PT's. Also expresses a fear of stairs which sometimes even keeps her from going places, needs to have a railing and avoids curbs. Prior Treatments and Tests prior TKA 1 1/2 yrs ago. Recent x-ray of knee looked good per Dr. Liu. x-ray and MRI of spine: patient reports DDD, stenosis, arthritis Treatment Goals Patient/Caregiver Goals Would like to be able to walk more, be more confident with gait on stairs and curbs Prior Functional Status Baseline Function- ADL's Independent Baseline Function- Mobility Independent Baseline Function- Gait able to ambulate without cane 2 miles Current Functional Impairments (Reported) Functional Limitations- ADL's painful Functional Limitations- Mobility/Gait painful Functional Limitations- Recreation/ limited walking due to pain in Hobbies LB and right LE PT-OP-C Subjective Start: 10/07/21 16:10 Freq: Status: Active Protocol: Document 11/12/21 09:00 SAK (Rec: 11/12/21 09:44 [facility] [id number]) OP-PT Subjective Patient Comments Patient Comments Has been home since 10/27/21 and has been compliant to HEP. Difficulty with stairs; not so much pain but unbalanced especially going down. Has one short step at home. Feels a twing of pain down right leg some but doesn't wake her up and isn't nearly as bad. PT-OP-D Balance Start: 10/07/21 16:10 Freq: Status: Active Protocol: Document 10/08/21 10:31 SAK (Rec: 10/08/21 12:07 [facility] [id number]) OP-PT Balance Assessment Sitting Balance Static Sitting Balance Ability Normal Dynamic Sitting Balance Ability Normal Standing Balance Static Standing Balance Ability Fair Dynamic Standing Balance Ability Poor Balance Tests Single Limb Standing Single Limb- Right 0 Single Limb- Left 2 Tinetti Balance Assessment Sitting Balance Sitting Balance Steady, safe Arising from Chair Ability to Arise Able, uses arms to help Attempts to Arise Arises on 1st attempt Standing Balance Immediate Standing Balance Steady with support Standing Balance Steady, wide stance Nudged Response Staggers, catches self Standing with Eyes Closed Unsteady Turning Step Pattern Turning 360 Degrees Continuous steps Stability Turning 360 Degrees Unsteady, grabs/staggers Sitting Down Sitting Down Uses arms or unsteady Gait and Step Initiation of Gait No hesitancy Right Foot Step Length Does pass stance foot Right Foot Step Height Does not clear floor Left Foot Step Length Does pass stance foot Left Foot Step Height Does not clear floor Step Description Step Symmetry Step length not equal Step Continuity Steps appear continuous Gait Description Path Description Mild/moderate deviation Trunk Description No sway but posturing Walking Stance Heels together Scoring and Interpretation Tinetti Composite Score (points) 16 Interpretation of Scores High risk for falls(< 19) Weaver Fall Scale Copyright Permission PT-OP-G Mobility & Gait Start: 10/07/21 16:10 Freq: Status: Active Protocol: Document 10/08/21 10:31 SAK (Rec: 10/08/21 12:07 [facility] [id number]) OP Gait Assessment Gait Gait Assistance Required: Independent Assistive Devices Assistive Device Straight Cane Gait Deviations General Gait Pattern Antalgic,Decreased Stride Length,Flexed Trunk Stair Climbing Evaluation Evaluation Level of Assist On Stairs Standby Assistance Devices Stair Climbing Assistive Devices Left Railing,Right Railing Technique/Endurance Stair Climbing Direction Descend Stair Climbing Technique Step Over Step Number of Steps Climbed 4 Comments Stair Climbing Comments 4 stairs and bilateral railing use. PT-OP-K Range of Motion Start: 10/07/21 16:10 Freq: Status: Active Protocol: Document 10/08/21 10:31 [facility] (Rec: 10/08/21 12:07 [facility] [id number]) Lumbar Spine Range of Motion Lumbar Spine Active Testing Position Standing Flexion 40 Extension 10 Rotation Left 35 Rotation Right 35 Lateral Flexion Left 20 Lateral Flexion Right 30 ROM Limitations Soft Tissue Tightness,Pain Comments pain when returning from forward flexion Hip Goniometric Range of Motion Hip Left Hip ROM WFL No Testing Position Supine Flexion w/Knee Flexed 110 Straight Leg Raise 60 Internal Rotation 15 External Rotation 50 Right Hip ROM WFL No Testing Position Supine Flexion w/Knee Flexed 110 Straight Leg Raise 65 Extension 0 Internal Rotation 45 External Rotation 25 Hip ROM Limitations Hip ROM Limitations Soft Tissue Tightness,Pain Ankle and Foot Goniometric Range of Motion Ankle and Foot Right Ankle/Foot ROM WFL No Comments mod tightness right gastroc Left Ankle/Foot ROM WFL Yes Ankle and Foot ROM Limitations ROM Limitations Soft Tissue Tightness PT-OP-L Special Tests Start: 10/07/21 16:10 Freq: Status: Active Protocol: Document 10/08/21 10:31 [facility] (Rec: 10/08/21 12:07 [facility] [id number]) Special Tests Lumbar Spine Special Tests Straight Leg Raise Test Results negative Hip Special Tests will Test Results positive right Piriformis Test Results positive right SANCHEZ Test Results negative Scour Test Test Results negative PT-OP-M Strength Start: 10/07/21 16:10 Freq: Status: Active Protocol: Document 10/08/21 10:31 SAK (Rec: 10/08/21 12:07 [facility] [id number]) Trunk Strength Trunk Manual Muscle Testing Flexion 4- Good- Extension 4- Good- Hip Strength Hip Manual Muscle Testing Right Flexion (L2) 4 Good Extension (S1) 3+ Fair+ Abduction 4- Good- Adduction 4- Good- External Rotation 4- Good- Internal Rotation 4- Good- Left Flexion (L2) 4 Good Extension (S1) 3+ Fair+ Abduction 4- Good- Adduction 4 Good External Rotation 4- Good- Internal Rotation 4- Good- Knee Strength Knee Manual Muscle Testing Right Flexion (S2) 4 Good Extension (L3) 4 Good Comments pain lateral knee and patellar region with extension Left Flexion (S2) 4+ Good+ Extension (L3) 4+ Good+ Ankle/Foot Strength Ankle and Foot Manual Muscle Testing Right Dorsiflexion (L4) 4 Good Plantarflexion (S1) 4 Good Left Dorsiflexion (L4) 4+ Good+ Inversion 4+ Good+ PT-OP-Q Treatments Start: 10/07/21 16:10 Freq: Status: Active Protocol: Document 11/12/21 09:00 [facility] (Rec: 11/12/21 09:44 [facility] [id number]) Cardio Equipment Recumbent Stepper (Sci-Fit) Duration (Minutes) 10 Resistance 1.8 Seat Position 11 Other UE's and LE's 5 min, LE's only 5 min. Gym Equipment Shuttle Recovery Unilateral Squats Resistance 25 Shuttle Recovery Platform Stable Reps/Time 10x ea Bilateral Squats Resistance 50 Shuttle Recovery Platform Stable Reps/Time 10x Shuttle Balance red Details balance and wt shift Reps/Duration 6 min Therapeutic Exercises Standing Exercises wall posture Reps/Minutes 6x5 squats Equipment Used verbal cues for alignment Reps/Minutes 6x HC stretch Standing Exercise Name and hip flexor (lunge stretch) Reps/Minutes 30x 2 Gait Training Gait Activity Stairs Device Used 4 stairs Distance/Duration 10 stairs Comments one railing, emphasis on alignment, gluteal activation, alignment Neuro Re-Education Treatment Balance Activities foam stand Details EO and EC Surface blue foam Comments parallel bars PT-OP-R Modalities Start: 10/07/21 16:10 Freq: Status: Active Protocol: Document 11/12/21 09:00 [facility] (Rec: 11/12/21 09:44 [facility] [id number]) Hot Pack/Cold Pack Treatment Hot Pack Comments patient declined. PT-OP-T Assessment and Plan Start: 10/07/21 16:10 Freq: Status: Active Protocol: Document 11/12/21 09:00 [facility] (Rec: 11/12/21 09:44 [facility] [id number]) Physical Therapy Assessment Goals 5 Impairment balance dysfunction Impairment Tinetti gait and balance score 16/28 indicating high risk for falls. Care Home Goal (LTG) Improve Tinetti score to at least 22/28 to decrease fall risk and improve confidence with mobility in the community . LTG Duration 01/06/22 4 Impairment difficulty ambulating on stairs and curbs Tube Cutter Goal (LTG) Patient able to ascend and descend stairs with one railing with alternating step pattern and be able to safely ascend and descend curb with least restrictive device LTG Duration 01/06/22 3 Impairment Patient unable to take usual walks due to back and right LE pain Care Home Goal (LTG) Patient able to take walks of 2-3 miles with minimal to no increase in pain LTG Duration 01/06/22 2 Impairment pain LB and right lateral LE and knee 6/10 on pain scale Tube Cutter Goal (LTG) Decrease pain to no greater than 2/10 with all usual activiites. LTG Duration 01/06/22 1 Impairment activity intolerance related to LBP and right LE pain Impairment Oswestry disability index score 34% (lower number indicates less disability) LEFS 35% (higher number indicates improved function) Tube Cutter Goal (LTG) Decrease JOSE score to no greater than 15% as measure decreased disability and improved function Improve LEFS score to at least 70% as measure of improved function and activity tolerance LTG Duration 01/06/22 Assessment Summary Assessment Patient compliant to HEP, able to progress to balance on shuttle balance machine, and increased gait training on stairs with cues for gluteal activation. Physical Therapy Plan Frequency and Duration Frequency of Treatment 2x/Week Duration of Treatment 12 weeks Plan of Care Start Date 10/08/21 Plan of Care End Date 01/06/22 Therapeutic Interventions Therapeutic Interventions Aquatic Therapy,Gait Training, Home Exercise Program,Manual Therapy,Neuromuscular Re- education,Patient/Caregiver Education,Self-Care/Home Management,Soft Tissue Mobilization,Taping, Therapeutic Activities, Therapeutic Exercises Modalities Cold Pack/Ice Massage,Electric Stimulation,Hot Packs, Infrared Therapy,Ultrasound Next Visit Focus/Plan Next Note Type Treatment Note Next Visit Plan Challenged gait with sport cord, further exercise progression as tolerated for strengthening and pain management, core stab.
--- NOTE | 2021-11-19 15:28 | PT.OTN ---
Current Diagnoses Radiculopathy, lumbar region (11/19/21) Iliotibial band syndrome, right leg (11/19/21) Presence of right artificial knee joint (11/19/21) Physical Therapy Treatment Note PT-OP-A Visit Information Start: 10/07/21 16:10 Freq: Status: Active Protocol: Document 11/19/21 14:34 SAK (Rec: 11/19/21 15:10 [facility] [id number]) Out-Patient Physical Therapy Visit Information Visit Information Visit Type Treatment Note Visit Start Time 14:30 Visit Stop Time 09:40 Total Visit Minutes 40 Visit Number 7 Number of E [employer] Visits 0 Evaluation Information Evaluation Date 10/08/21 PT-OP-B Current Condition Start: 10/07/21 16:10 Freq: Status: Active Protocol: Document 10/08/21 10:31 SAK (Rec: 10/08/21 12:07 [facility] [id number]) Current Condition History of Current Condition Onset Date 1 year Current Complaints right lateral thigh and LBP History of Current Condition Denies fall, gradual onset worsening LBP and lateral hip pain since having righ TKA 1 1 /2 years ago. Very limited in ability to take walks which she loves to do, increase in leg and back pain, unable to walk her usual 2-3 miles, has to stop at 1 - 1/4 miles. Has to use cane for balance and confidence. Doesn't stretch, uses some ice, no heat. Rare N/T, no giving way. Back and leg worse in am, and when unloading groceries. No regular exercise routine except walking. Previously has done some HEP from prior PT's. Also expresses a fear of stairs which sometimes even keeps her from going places, needs to have a railing and avoids curbs. Prior Treatments and Tests prior TKA 1 1/2 yrs ago. Recent x-ray of knee looked good per Dr. Liu. x-ray and MRI of spine: patient reports DDD, stenosis, arthritis Treatment Goals Patient/Caregiver Goals Would like to be able to walk more, be more confident with gait on stairs and curbs Prior Functional Status Baseline Function- ADL's Independent Baseline Function- Mobility Independent Baseline Function- Gait able to ambulate without cane 2 miles Current Functional Impairments (Reported) Functional Limitations- ADL's painful Functional Limitations- Mobility/Gait painful Functional Limitations- Recreation/ limited walking due to pain in Hobbies LB and right LE PT-OP-C Subjective Start: 10/07/21 16:10 Freq: Status: Active Protocol: Document 11/19/21 14:34 SAK (Rec: 11/19/21 15:10 [facility] [id number]) OP-PT Subjective Patient Comments Patient Comments Still gets cramping in hamstrings when does bridge. Fatigued after last session. PT-OP-D Balance Start: 10/07/21 16:10 Freq: Status: Active Protocol: Document 10/08/21 10:31 SAK (Rec: 10/08/21 12:07 [facility] [id number]) OP-PT Balance Assessment Sitting Balance Static Sitting Balance Ability Normal Dynamic Sitting Balance Ability Normal Standing Balance Static Standing Balance Ability Fair Dynamic Standing Balance Ability Poor Balance Tests Single Limb Standing Single Limb- Right 0 Single Limb- Left 2 Tinetti Balance Assessment Sitting Balance Sitting Balance Steady, safe Arising from Chair Ability to Arise Able, uses arms to help Attempts to Arise Arises on 1st attempt Standing Balance Immediate Standing Balance Steady with support Standing Balance Steady, wide stance Nudged Response Staggers, catches self Standing with Eyes Closed Unsteady Turning Step Pattern Turning 360 Degrees Continuous steps Stability Turning 360 Degrees Unsteady, grabs/staggers Sitting Down Sitting Down Uses arms or unsteady Gait and Step Initiation of Gait No hesitancy Right Foot Step Length Does pass stance foot Right Foot Step Height Does not clear floor Left Foot Step Length Does pass stance foot Left Foot Step Height Does not clear floor Step Description Step Symmetry Step length not equal Step Continuity Steps appear continuous Gait Description Path Description Mild/moderate deviation Trunk Description No sway but posturing Walking Stance Heels together Scoring and Interpretation Tinetti Composite Score (points) 16 Interpretation of Scores High risk for falls(< 19) Weaver Fall Scale Copyright Permission PT-OP-G Mobility & Gait Start: 10/07/21 16:10 Freq: Status: Active Protocol: Document 10/08/21 10:31 SAK (Rec: 10/08/21 12:07 [facility] [id number]) OP Gait Assessment Gait Gait Assistance Required: Independent Assistive Devices Assistive Device Straight Cane Gait Deviations General Gait Pattern Antalgic,Decreased Stride Length,Flexed Trunk Stair Climbing Evaluation Evaluation Level of Assist On Stairs Standby Assistance Devices Stair Climbing Assistive Devices Left Railing,Right Railing Technique/Endurance Stair Climbing Direction Descend Stair Climbing Technique Step Over Step Number of Steps Climbed 4 Comments Stair Climbing Comments 4 stairs and bilateral railing use. PT-OP-K Range of Motion Start: 10/07/21 16:10 Freq: Status: Active Protocol: Document 10/08/21 10:31 [facility] (Rec: 10/08/21 12:07 [facility] [id number]) Lumbar Spine Range of Motion Lumbar Spine Active Testing Position Standing Flexion 40 Extension 10 Rotation Left 35 Rotation Right 35 Lateral Flexion Left 20 Lateral Flexion Right 30 ROM Limitations Soft Tissue Tightness,Pain Comments pain when returning from forward flexion Hip Goniometric Range of Motion Hip Left Hip ROM WFL No Testing Position Supine Flexion w/Knee Flexed 110 Straight Leg Raise 60 Internal Rotation 15 External Rotation 50 Right Hip ROM WFL No Testing Position Supine Flexion w/Knee Flexed 110 Straight Leg Raise 65 Extension 0 Internal Rotation 45 External Rotation 25 Hip ROM Limitations Hip ROM Limitations Soft Tissue Tightness,Pain Ankle and Foot Goniometric Range of Motion Ankle and Foot Right Ankle/Foot ROM WFL No Comments mod tightness right gastroc Left Ankle/Foot ROM WFL Yes Ankle and Foot ROM Limitations ROM Limitations Soft Tissue Tightness PT-OP-L Special Tests Start: 10/07/21 16:10 Freq: Status: Active Protocol: Document 10/08/21 10:31 [facility] (Rec: 10/08/21 12:07 [facility] [id number]) Special Tests Lumbar Spine Special Tests Straight Leg Raise Test Results negative Hip Special Tests will Test Results positive right Piriformis Test Results positive right SANCHEZ Test Results negative Scour Test Test Results negative PT-OP-M Strength Start: 10/07/21 16:10 Freq: Status: Active Protocol: Document 10/08/21 10:31 [facility] (Rec: 10/08/21 12:07 [facility] [id number]) Trunk Strength Trunk Manual Muscle Testing Flexion 4- Good- Extension 4- Good- Hip Strength Hip Manual Muscle Testing Right Flexion (L2) 4 Good Extension (S1) 3+ Fair+ Abduction 4- Good- Adduction 4- Good- External Rotation 4- Good- Internal Rotation 4- Good- Left Flexion (L2) 4 Good Extension (S1) 3+ Fair+ Abduction 4- Good- Adduction 4 Good External Rotation 4- Good- Internal Rotation 4- Good- Knee Strength Knee Manual Muscle Testing Right Flexion (S2) 4 Good Extension (L3) 4 Good Comments pain lateral knee and patellar region with extension Left Flexion (S2) 4+ Good+ Extension (L3) 4+ Good+ Ankle/Foot Strength Ankle and Foot Manual Muscle Testing Right Dorsiflexion (L4) 4 Good Plantarflexion (S1) 4 Good Left Dorsiflexion (L4) 4+ Good+ Inversion 4+ Good+ PT-OP-Q Treatments Start: 10/07/21 16:10 Freq: Status: Active Protocol: Document 11/19/21 14:34 [facility] (Rec: 11/19/21 15:10 [facility] [id number]) Cardio Equipment Recumbent Stepper (Sci-Fit) Duration (Minutes) 10 Resistance 1.8 Seat Position 11 Other UE's and LE's 5 min, LE's only 5 min. Gym Equipment Shuttle Recovery Unilateral Squats Resistance 25 Shuttle Recovery Platform Stable Reps/Time 10x ea Bilateral Squats Resistance 50 Shuttle Recovery Platform Stable Reps/Time 10x Shuttle Balance red Details balance and wt shift fwd and back Reps/Duration 6 min Therapeutic Exercises Standing Exercises HC stretch Standing Exercise Name and hip flexor (lunge stretch) Reps/Minutes 30x 2 Gait Training Gait Activity Stairs Device Used 4 stairs Distance/Duration 10 stairs Comments one railing, emphasis on alignment, gluteal activation, alignment. Patient able to alternate LE's ascending, alternated 2x descending otherwise step-to due to feeling weak. Neuro Re-Education Treatment Balance Activities SLS Reps/Duration 3 min Comments chair, corner tandem stand Reps/Duration 3 min Comments chair, corner foam stand Details EO and EC Surface blue foam Comments parallel bars PT-OP-R Modalities Start: 10/07/21 16:10 Freq: Status: Active Protocol: Document 11/12/21 09:00 [facility] (Rec: 11/12/21 09:44 [facility] [id number]) Hot Pack/Cold Pack Treatment Hot Pack Comments patient declined. PT-OP-T Assessment and Plan Start: 10/07/21 16:10 Freq: Status: Active Protocol: Document 11/19/21 14:34 [facility] (Rec: 11/19/21 15:10 [facility] [id number]) Physical Therapy Assessment Goals 5 Impairment balance dysfunction Impairment Tinetti gait and balance score 16/28 indicating high risk for falls. Penitentiary Goal (LTG) Improve Tinetti score to at least 22/28 to decrease fall risk and improve confidence with mobility in the community . LTG Duration 01/06/22 4 Impairment difficulty ambulating on stairs and curbs [employer] Goal (LTG) Patient able to ascend and descend stairs with one railing with alternating step pattern and be able to safely ascend and descend curb with least restrictive device LTG Duration 01/06/22 3 Impairment Patient unable to take usual walks due to back and right LE pain Penitentiary Goal (LTG) Patient able to take walks of 2-3 miles with minimal to no increase in pain LTG Duration 01/06/22 2 Impairment pain LB and right lateral LE and knee 6/10 on pain scale Penitentiary Goal (LTG) Decrease pain to no greater than 2/10 with all usual activiites. LTG Duration 01/06/22 1 Impairment activity intolerance related to LBP and right LE pain Impairment Oswestry disability index score 34% (lower number indicates less disability) LEFS 35% (higher number indicates improved function) Penitentiary Goal (LTG) Decrease JOSE score to no greater than 15% as measure decreased disability and improved function Improve LEFS score to at least 70% as measure of improved function and activity tolerance LTG Duration 01/06/22 Progress Towards Goals Progress Towards Goals Progressing Toward Goals Assessment Summary Assessment Patient needs cues to decrease UE support and challenge herself with balance activities. Denied pain with exercises, but feels weak when descending stairs especially. Physical Therapy Plan Frequency and Duration Frequency of Treatment 2x/Week Duration of Treatment 12 weeks Plan of Care Start Date 10/08/21 Plan of Care End Date 01/06/22 Therapeutic Interventions Therapeutic Interventions Aquatic Therapy,Gait Training, Home Exercise Program,Manual Therapy,Neuromuscular Re- education,Patient/Caregiver Education,Self-Care/Home Management,Soft Tissue Mobilization,Taping, Therapeutic Activities, Therapeutic Exercises Modalities Cold Pack/Ice Massage,Electric Stimulation,Hot Packs, Infrared Therapy,Ultrasound Next Visit Focus/Plan Next Note Type Treatment Note Next Visit Plan Challenged gait with sport cord, further exercise progression as tolerated for strengthening and pain management, core stab. Problem solve bridging.
--- NOTE | 2021-11-22 13:43 | PT.OTN ---
Current Diagnoses Radiculopathy, lumbar region (11/22/21) Iliotibial band syndrome, right leg (11/22/21) Presence of right artificial knee joint (11/22/21) Physical Therapy Treatment Note PT-OP-A Visit Information Start: 10/07/21 16:10 Freq: Status: Active Protocol: Document 11/22/21 13:03 SP (Rec: 11/22/21 13:47 SP [id number]) Out-Patient Physical Therapy Visit Information Visit Information Visit Type Treatment Note Visit Start Time 13:03 Visit Stop Time 13:43 Total Visit Minutes 40 Visit Number 8 Number of PORTABLE TRACK CREW CHIEF Visits 1 Evaluation Information Evaluation Date 10/08/21 PT-OP-B Current Condition Start: 10/07/21 16:10 Freq: Status: Active Protocol: Document 10/08/21 10:31 SAK (Rec: 10/08/21 12:07 SAK [id number]) Current Condition History of Current Condition Onset Date 1 year Current Complaints right lateral thigh and LBP History of Current Condition Denies fall, gradual onset worsening LBP and lateral hip pain since having righ TKA 1 1 /2 years ago. Very limited in ability to take walks which she loves to do, increase in leg and back pain, unable to walk her usual 2-3 miles, has to stop at 1 - 1/4 miles. Has to use cane for balance and confidence. Doesn't stretch, uses some ice, no heat. Rare N/T, no giving way. Back and leg worse in am, and when unloading groceries. No regular exercise routine except walking. Previously has done some HEP from prior PT's. Also expresses a fear of stairs which sometimes even keeps her from going places, needs to have a railing and avoids curbs. Prior Treatments and Tests prior TKA 1 1/2 yrs ago. Recent x-ray of knee looked good per Dr. Liu. x-ray and MRI of spine: patient reports DDD, stenosis, arthritis Treatment Goals Patient/Caregiver Goals Would like to be able to walk more, be more confident with gait on stairs and curbs Prior Functional Status Baseline Function- ADL's Independent Baseline Function- Mobility Independent Baseline Function- Gait able to ambulate without cane 2 miles Current Functional Impairments (Reported) Functional Limitations- ADL's painful Functional Limitations- Mobility/Gait painful Functional Limitations- Recreation/ limited walking due to pain in Hobbies LB and right LE PT-OP-C Subjective Start: 10/07/21 16:10 Freq: Status: Active Protocol: Document 11/22/21 13:03 SP (Rec: 11/22/21 13:47 SP [id number]) OP-PT Subjective Patient Comments Patient Comments Pt stated sore and stiff upon arrival. Was tired and sore into the next day after last appt. PT-OP-D Balance Start: 10/07/21 16:10 Freq: Status: Active Protocol: Document 10/08/21 10:31 SAK (Rec: 10/08/21 12:07 SAK [id number]) OP-PT Balance Assessment Sitting Balance Static Sitting Balance Ability Normal Dynamic Sitting Balance Ability Normal Standing Balance Static Standing Balance Ability Fair Dynamic Standing Balance Ability Poor Balance Tests Single Limb Standing Single Limb- Right 0 Single Limb- Left 2 Tinetti Balance Assessment Sitting Balance Sitting Balance Steady, safe Arising from Chair Ability to Arise Able, uses arms to help Attempts to Arise Arises on 1st attempt Standing Balance Immediate Standing Balance Steady with support Standing Balance Steady, wide stance Nudged Response Staggers, catches self Standing with Eyes Closed Unsteady Turning Step Pattern Turning 360 Degrees Continuous steps Stability Turning 360 Degrees Unsteady, grabs/staggers Sitting Down Sitting Down Uses arms or unsteady Gait and Step Initiation of Gait No hesitancy Right Foot Step Length Does pass stance foot Right Foot Step Height Does not clear floor Left Foot Step Length Does pass stance foot Left Foot Step Height Does not clear floor Step Description Step Symmetry Step length not equal Step Continuity Steps appear continuous Gait Description Path Description Mild/moderate deviation Trunk Description No sway but posturing Walking Stance Heels together Scoring and Interpretation Tinetti Composite Score (points) 16 Interpretation of Scores High risk for falls(< 19) Weaver Fall Scale Copyright Permission PT-OP-G Mobility & Gait Start: 10/07/21 16:10 Freq: Status: Active Protocol: Document 10/08/21 10:31 SAK (Rec: 10/08/21 12:07 SAK [id number]) OP Gait Assessment Gait Gait Assistance Required: Independent Assistive Devices Assistive Device Straight Cane Gait Deviations General Gait Pattern Antalgic,Decreased Stride Length,Flexed Trunk Stair Climbing Evaluation Evaluation Level of Assist On Stairs Standby Assistance Devices Stair Climbing Assistive Devices Left Railing,Right Railing Technique/Endurance Stair Climbing Direction Descend Stair Climbing Technique Step Over Step Number of Steps Climbed 4 Comments Stair Climbing Comments 4 stairs and bilateral railing use. PT-OP-K Range of Motion Start: 10/07/21 16:10 Freq: Status: Active Protocol: Document 10/08/21 10:31 [facility] (Rec: 10/08/21 12:07 [facility] [id number]) Lumbar Spine Range of Motion Lumbar Spine Active Testing Position Standing Flexion 40 Extension 10 Rotation Left 35 Rotation Right 35 Lateral Flexion Left 20 Lateral Flexion Right 30 ROM Limitations Soft Tissue Tightness,Pain Comments pain when returning from forward flexion Hip Goniometric Range of Motion Hip Left Hip ROM WFL No Testing Position Supine Flexion w/Knee Flexed 110 Straight Leg Raise 60 Internal Rotation 15 External Rotation 50 Right Hip ROM WFL No Testing Position Supine Flexion w/Knee Flexed 110 Straight Leg Raise 65 Extension 0 Internal Rotation 45 External Rotation 25 Hip ROM Limitations Hip ROM Limitations Soft Tissue Tightness,Pain Ankle and Foot Goniometric Range of Motion Ankle and Foot Right Ankle/Foot ROM WFL No Comments mod tightness right gastroc Left Ankle/Foot ROM WFL Yes Ankle and Foot ROM Limitations ROM Limitations Soft Tissue Tightness PT-OP-L Special Tests Start: 10/07/21 16:10 Freq: Status: Active Protocol: Document 10/08/21 10:31 [facility] (Rec: 10/08/21 12:07 [facility] [id number]) Special Tests Lumbar Spine Special Tests Straight Leg Raise Test Results negative Hip Special Tests will Test Results positive right Piriformis Test Results positive right SANCHEZ Test Results negative Scour Test Test Results negative PT-OP-M Strength Start: 10/07/21 16:10 Freq: Status: Active Protocol: Document 10/08/21 10:31 [facility] (Rec: 10/08/21 12:07 [facility] [id number]) Trunk Strength Trunk Manual Muscle Testing Flexion 4- Good- Extension 4- Good- Hip Strength Hip Manual Muscle Testing Right Flexion (L2) 4 Good Extension (S1) 3+ Fair+ Abduction 4- Good- Adduction 4- Good- External Rotation 4- Good- Internal Rotation 4- Good- Left Flexion (L2) 4 Good Extension (S1) 3+ Fair+ Abduction 4- Good- Adduction 4 Good External Rotation 4- Good- Internal Rotation 4- Good- Knee Strength Knee Manual Muscle Testing Right Flexion (S2) 4 Good Extension (L3) 4 Good Comments pain lateral knee and patellar region with extension Left Flexion (S2) 4+ Good+ Extension (L3) 4+ Good+ Ankle/Foot Strength Ankle and Foot Manual Muscle Testing Right Dorsiflexion (L4) 4 Good Plantarflexion (S1) 4 Good Left Dorsiflexion (L4) 4+ Good+ Inversion 4+ Good+ PT-OP-Q Treatments Start: 10/07/21 16:10 Freq: Status: Active Protocol: Document 11/22/21 13:03 SP (Rec: 11/22/21 13:47 SP [id number]) Cardio Equipment Recumbent Stepper (Sci-Fit) Duration (Minutes) 10 Resistance 1.8 Seat Position 11- 1.14 miles Other UE's and LE's 5 min, LE's only 5 min. Gym Equipment Shuttle Recovery Unilateral Squats Resistance 25#, (increase 37 # next tx) Shuttle Recovery Platform Stable Reps/Time 10x ea Bilateral Squats Resistance 50#, (increase 62 # next tx) Shuttle Recovery Platform Stable Reps/Time x15 Therapeutic Exercises Supine Exercises hip flexor stretch Supine Exercise Name states doing at home SLR Supine Exercise Name states doing at home supine clam Supine Exercise Name states doing at home ball squeeze Supine Exercise Name states doing at home Resistance uses pillow Reps/Minutes 10x Comments cues for core activation bridge Supine Exercise Name doing at home HEP Sidelying Exercises hip abduction Sidelying Exercise Name states has trouble with so not doing at home. Standing Exercises row, shld ext Standing Exercise Name HEP reviewed Resistance Tb L2 ext, Lvl 3 rows Reps/Minutes 10x Comments cued tall posture, but tucked underneath sit to stand Standing Exercise Name HEP reviewed Equipment Used 2 pillows Reps/Minutes 10x Comments no flop last rep w/ self corrections hip hinge resisted sidestepping Standing Exercise Name f/b/side stepping in PT Resistance red band Equipment Used B UE on rail Reps/Minutes 1 lap each Comments cued tall posture, foot clearance and slow eccentric trailing LE heel raise, toe raise Standing Exercise Name HEP reviewed Equipment Used rail PRN for balance recovery Reps/Minutes 10x Comments cued slow pacing Gait Training Gait Activity Stairs Device Used 6-8 stairs Distance/Duration 4 stairs x3 sets Comments one railing, emphasis on alignment, gluteal activation, alignment. Patient able to alternate LE's ascending, alternate descending step over step slow, cued feet //. Neuro Re-Education Treatment Balance Activities hurdles Details f/side stepping Surface firm Equipment rail PRN contact Comments 1 contact trailing LE due to stated feels off balance and tired. PT-OP-R Modalities Start: 10/07/21 16:10 Freq: Status: Active Protocol: Document 11/12/21 09:00 SAK (Rec: 11/12/21 09:44 SAK [id number]) Hot Pack/Cold Pack Treatment Hot Pack Comments patient declined. PT-OP-T Assessment and Plan Start: 10/07/21 16:10 Freq: Status: Active Protocol: Document 11/22/21 13:03 SP (Rec: 11/22/21 13:47 SP [id number]) Physical Therapy Assessment Goals 5 Impairment balance dysfunction Impairment Tinetti gait and balance score 16/28 indicating high risk for falls. Biochemistry Technician Goal (LTG) Improve Tinetti score to at least 22/28 to decrease fall risk and improve confidence with mobility in the community . 11/22/21: LTG Duration 01/06/22 4 Impairment difficulty ambulating on stairs and curbs Halfway Goal (LTG) Patient able to ascend and descend stairs with one railing with alternating step pattern and be able to safely ascend and descend curb with least restrictive device 11/22/21: LTG Duration 01/06/22 progressing 11/22/21 3 Impairment Patient unable to take usual walks due to back and right LE pain Biochemistry Technician Goal (LTG) Patient able to take walks of 2-3 miles with minimal to no increase in pain 11/22/21: progressing: pt stated last Thursday walked about 2 miles and just tired. The pain down R lateral leg basically gone now. LTG Duration 01/06/22 progressin11/22/21 2 Impairment pain LB and right lateral LE and knee /10 on pain scale Halfway Goal (LTG) Decrease pain to no greater than 2/10 with all usual activiites. 11/22/21: Pt stated after walk on Thursday: pain hurts but not unbearable /. Heat/ stretching pain goes away. LTG Duration 01/06/22 progressing 11/20/21 1 Impairment activity intolerance related to LBP and right LE pain Impairment Oswestry disability index score 34% (lower number indicates less disability) LEFS 35% (higher number indicates improved function) Biochemistry Technician Goal (LTG) Decrease JOSE score to no greater than 15% as measure decreased disability and improved function Improve LEFS score to at least 70% as measure of improved function and activity tolerance LTG Duration 01/06/22 Assessment Summary Assessment Pt improved foot clearance and stability, cued for awareness of allow little unstability in PT let body recovery vs always contact to allow balance recovery eventually over uneven surfaces. Pt states no pain with activity but is tired. Physical Therapy Plan Frequency and Duration Frequency of Treatment 2x/Week Duration of Treatment 12 weeks Plan of Care Start Date 10/08/21 Plan of Care End Date 01/06/22 Therapeutic Interventions Therapeutic Interventions Aquatic Therapy,Gait Training, Home Exercise Program,Manual Therapy,Neuromuscular Re- education,Patient/Caregiver Education,Self-Care/Home Management,Soft Tissue Mobilization,Taping, Therapeutic Activities, Therapeutic Exercises Modalities Cold Pack/Ice Massage,Electric Stimulation,Hot Packs, Infrared Therapy,Ultrasound Next Visit Focus/Plan Next Note Type Treatment Note Next Visit Plan Assess CASS Barone. Continue hurdles, no UE, repeat sport cored. POC: progression as tolerated for strengthening and pain management, core stab. Problem solve bridging.
--- NOTE | 2021-11-25 16:14 | PT.OTN ---
Current Diagnoses Radiculopathy, lumbar region (11/25/21) Iliotibial band syndrome, right leg (11/25/21) Presence of right artificial knee joint (11/25/21) Physical Therapy Treatment Note PT-OP-A Visit Information Start: 10/07/21 16:10 Freq: Status: Active Protocol: Document 11/25/21 15:15 SAK (Rec: 11/25/21 16:14 SAK [id number]) Out-Patient Physical Therapy Visit Information Visit Information Visit Type Treatment Note Visit Start Time 15:15 Visit Stop Time 15:55 Total Visit Minutes 40 Visit Number 9 Number of NETWORKING TECHNOLOGY INSTRUCTOR Visits 0 PT-OP-B Current Condition Start: 10/07/21 16:10 Freq: Status: Active Protocol: Document 10/08/21 10:31 SAK (Rec: 10/08/21 12:07 SAK [id number]) Current Condition History of Current Condition Onset Date 1 year Current Complaints right lateral thigh and LBP History of Current Condition Denies fall, gradual onset worsening LBP and lateral hip pain since having righ TKA 1 1 /2 years ago. Very limited in ability to take walks which she loves to do, increase in leg and back pain, unable to walk her usual 2-3 miles, has to stop at 1 - 1/4 miles. Has to use cane for balance and confidence. Doesn't stretch, uses some ice, no heat. Rare N/T, no giving way. Back and leg worse in am, and when unloading groceries. No regular exercise routine except walking. Previously has done some HEP from prior PT's. Also expresses a fear of stairs which sometimes even keeps her from going places, needs to have a railing and avoids curbs. Prior Treatments and Tests prior TKA 1 1/2 yrs ago. Recent x-ray of knee looked good per Dr. Liu. x-ray and MRI of spine: patient reports DDD, stenosis, arthritis Treatment Goals Patient/Caregiver Goals Would like to be able to walk more, be more confident with gait on stairs and curbs Prior Functional Status Baseline Function- ADL's Independent Baseline Function- Mobility Independent Baseline Function- Gait able to ambulate without cane 2 miles Current Functional Impairments (Reported) Functional Limitations- ADL's painful Functional Limitations- Mobility/Gait painful Functional Limitations- Recreation/ limited walking due to pain in Hobbies LB and right LE PT-OP-C Subjective Start: 10/07/21 16:10 Freq: Status: Active Protocol: Document 11/25/21 15:15 SAK (Rec: 11/25/21 16:14 [facility] [id number]) OP-PT Subjective Patient Comments Patient Comments Already did her exercises today, may get pretty tired. Has been using heat on low back. PT-OP-D Balance Start: 10/07/21 16:10 Freq: Status: Active Protocol: Document 10/08/21 10:31 SAK (Rec: 10/08/21 12:07 [facility] [id number]) OP-PT Balance Assessment Sitting Balance Static Sitting Balance Ability Normal Dynamic Sitting Balance Ability Normal Standing Balance Static Standing Balance Ability Fair Dynamic Standing Balance Ability Poor Balance Tests Single Limb Standing Single Limb- Right 0 Single Limb- Left 2 Tinetti Balance Assessment Sitting Balance Sitting Balance Steady, safe Arising from Chair Ability to Arise Able, uses arms to help Attempts to Arise Arises on 1st attempt Standing Balance Immediate Standing Balance Steady with support Standing Balance Steady, wide stance Nudged Response Staggers, catches self Standing with Eyes Closed Unsteady Turning Step Pattern Turning 360 Degrees Continuous steps Stability Turning 360 Degrees Unsteady, grabs/staggers Sitting Down Sitting Down Uses arms or unsteady Gait and Step Initiation of Gait No hesitancy Right Foot Step Length Does pass stance foot Right Foot Step Height Does not clear floor Left Foot Step Length Does pass stance foot Left Foot Step Height Does not clear floor Step Description Step Symmetry Step length not equal Step Continuity Steps appear continuous Gait Description Path Description Mild/moderate deviation Trunk Description No sway but posturing Walking Stance Heels together Scoring and Interpretation Tinetti Composite Score (points) 16 Interpretation of Scores High risk for falls(< 19) Weaver Fall Scale Copyright Permission PT-OP-G Mobility & Gait Start: 10/07/21 16:10 Freq: Status: Active Protocol: Document 10/08/21 10:31 [facility] (Rec: 10/08/21 12:07 [facility] [id number]) OP Gait Assessment Gait Gait Assistance Required: Independent Assistive Devices Assistive Device Straight Cane Gait Deviations General Gait Pattern Antalgic,Decreased Stride Length,Flexed Trunk Stair Climbing Evaluation Evaluation Level of Assist On Stairs Standby Assistance Devices Stair Climbing Assistive Devices Left Railing,Right Railing Technique/Endurance Stair Climbing Direction Descend Stair Climbing Technique Step Over Step Number of Steps Climbed 4 Comments Stair Climbing Comments 4 stairs and bilateral railing use. PT-OP-K Range of Motion Start: 10/07/21 16:10 Freq: Status: Active Protocol: Document 10/08/21 10:31 [facility] (Rec: 10/08/21 12:07 [facility] [id number]) Lumbar Spine Range of Motion Lumbar Spine Active Testing Position Standing Flexion 40 Extension 10 Rotation Left 35 Rotation Right 35 Lateral Flexion Left 20 Lateral Flexion Right 30 ROM Limitations Soft Tissue Tightness,Pain Comments pain when returning from forward flexion Hip Goniometric Range of Motion Hip Left Hip ROM WFL No Testing Position Supine Flexion w/Knee Flexed 110 Straight Leg Raise 60 Internal Rotation 15 External Rotation 50 Right Hip ROM WFL No Testing Position Supine Flexion w/Knee Flexed 110 Straight Leg Raise 65 Extension 0 Internal Rotation 45 External Rotation 25 Hip ROM Limitations Hip ROM Limitations Soft Tissue Tightness,Pain Ankle and Foot Goniometric Range of Motion Ankle and Foot Right Ankle/Foot ROM WFL No Comments mod tightness right gastroc Left Ankle/Foot ROM WFL Yes Ankle and Foot ROM Limitations ROM Limitations Soft Tissue Tightness PT-OP-L Special Tests Start: 10/07/21 16:10 Freq: Status: Active Protocol: Document 10/08/21 10:31 [facility] (Rec: 10/08/21 12:07 [facility] [id number]) Special Tests Lumbar Spine Special Tests Straight Leg Raise Test Results negative Hip Special Tests will Test Results positive right Piriformis Test Results positive right SANCHEZ Test Results negative Scour Test Test Results negative PT-OP-M Strength Start: 10/07/21 16:10 Freq: Status: Active Protocol: Document 10/08/21 10:31 [facility] (Rec: 10/08/21 12:07 [facility] [id number]) Trunk Strength Trunk Manual Muscle Testing Flexion 4- Good- Extension 4- Good- Hip Strength Hip Manual Muscle Testing Right Flexion (L2) 4 Good Extension (S1) 3+ Fair+ Abduction 4- Good- Adduction 4- Good- External Rotation 4- Good- Internal Rotation 4- Good- Left Flexion (L2) 4 Good Extension (S1) 3+ Fair+ Abduction 4- Good- Adduction 4 Good External Rotation 4- Good- Internal Rotation 4- Good- Knee Strength Knee Manual Muscle Testing Right Flexion (S2) 4 Good Extension (L3) 4 Good Comments pain lateral knee and patellar region with extension Left Flexion (S2) 4+ Good+ Extension (L3) 4+ Good+ Ankle/Foot Strength Ankle and Foot Manual Muscle Testing Right Dorsiflexion (L4) 4 Good Plantarflexion (S1) 4 Good Left Dorsiflexion (L4) 4+ Good+ Inversion 4+ Good+ PT-OP-Q Treatments Start: 10/07/21 16:10 Freq: Status: Active Protocol: Document 11/25/21 15:15 [facility] (Rec: 11/25/21 16:14 [facility] [id number]) Cardio Equipment Recumbent Stepper (Sci-Fit) Duration (Minutes) 5 Resistance 1.8 Seat Position 11- 1.14 miles Other UE's and LE's 5 min, LE's only 5 min. Gym Equipment Sport Cord green cord Exercise Details forward Cord/Resistance green Reps/Duration 5x Comments mirror for visual feedback, cues for upright posture, gluteal activation Therapeutic Exercises Sidelying Exercises hip abduction Equipment Used wall Reps/Minutes 5x Comments cues for neutral LE alignment Standing Exercises wall posture Reps/Minutes 6x5 HC stretch Standing Exercise Name and hip flexor (lunge stretch) Reps/Minutes 30x 2 Gait Training Gait Activity On level Device Used None Surface Level Treatment Focus gluteal activation, dec lateral sway Comments mirror for visual feedback. Neuro Re-Education Treatment Balance Activities hurdles Details f/side stepping Surface firm Equipment rail PRN contact Comments 1 contact trailing LE due to stated feels off balance and tired. PT-OP-R Modalities Start: 10/07/21 16:10 Freq: Status: Active Protocol: Document 11/12/21 09:00 [facility] (Rec: 11/12/21 09:44 [facility] [id number]) Hot Pack/Cold Pack Treatment Hot Pack Comments patient declined. PT-OP-T Assessment and Plan Start: 10/07/21 16:10 Freq: Status: Active Protocol: Document 11/25/21 15:15 [facility] (Rec: 11/25/21 16:14 [facility] [id number]) Physical Therapy Assessment Goals 5 Impairment balance dysfunction Impairment Tinetti gait and balance score 16/28 indicating high risk for falls. Retirement Goal (LTG) Improve Tinetti score to at least 22/28 to decrease fall risk and improve confidence with mobility in the community . 11/22/21: LTG Duration 01/06/22 4 Impairment difficulty ambulating on stairs and curbs Blasting Worker Goal (LTG) Patient able to ascend and descend stairs with one railing with alternating step pattern and be able to safely ascend and descend curb with least restrictive device 11/22/21: LTG Duration 01/06/22 progressing 11/22/21 3 Impairment Patient unable to take usual walks due to back and right LE pain Blasting Worker Goal (LTG) Patient able to take walks of 2-3 miles with minimal to no increase in pain 11/22/21: progressing: pt stated last Thursday walked about 2 miles and just tired. The pain down R lateral leg basically gone now. LTG Duration 01/06/22 progressin11/22/21 2 Impairment pain LB and right lateral LE and knee /10 on pain scale Blasting Worker Goal (LTG) Decrease pain to no greater than 2/10 with all usual activiites. 11/22/21: Pt stated after walk on Thursday: pain hurts but not unbearable 4/10. Heat/ stretching pain goes away. LTG Duration 01/06/22 progressing 11/20/21 1 Impairment activity intolerance related to LBP and right LE pain Impairment Oswestry disability index score 34% (lower number indicates less disability) LEFS 35% (higher number indicates improved function) Retirement Goal (LTG) Decrease JOSE score to no greater than 15% as measure decreased disability and improved function Improve LEFS score to at least 70% as measure of improved function and activity tolerance LTG Duration 01/06/22 Assessment Summary Assessment Patient able to self-correct posture with mod cues but has difficulty maintaining correction with dynamic movement. Used wall for guide with hip abduction, patient only able to perform 5 repetitions before fatigue, demonstrated improved understanding of focus of exercise with use of wall. Physical Therapy Plan Frequency and Duration Frequency of Treatment 2x/Week Duration of Treatment 12 weeks Plan of Care Start Date 10/08/21 Plan of Care End Date 01/06/22 Therapeutic Interventions Therapeutic Interventions Aquatic Therapy,Gait Training, Home Exercise Program,Manual Therapy,Neuromuscular Re- education,Patient/Caregiver Education,Self-Care/Home Management,Soft Tissue Mobilization,Taping, Therapeutic Activities, Therapeutic Exercises Modalities Cold Pack/Ice Massage,Electric Stimulation,Hot Packs, Infrared Therapy,Ultrasound Next Visit Focus/Plan Next Note Type Progress Note Next Visit Plan Reassess balance, strength. Continue with postural retraining, dynamic training with
--- NOTE | 2021-11-27 16:11 | PT.OTN ---
Current Diagnoses Radiculopathy, lumbar region (11/27/21) Iliotibial band syndrome, right leg (11/27/21) Presence of right artificial knee joint (11/27/21) Physical Therapy Treatment Note PT-OP-A Visit Information Start: 10/07/21 16:10 Freq: Status: Active Protocol: Document 11/27/21 15:15 [facility] (Rec: 11/27/21 16:10 [facility] [id number]) Out-Patient Physical Therapy Visit Information Visit Information Visit Type Treatment Note Visit Start Time 15:15 Visit Stop Time 15:55 Total Visit Minutes 40 Visit Number 10 Number of IC DESIGN ENGINEER Visits 0 PT-OP-B Current Condition Start: 10/07/21 16:10 Freq: Status: Active Protocol: Document 10/08/21 10:31 [facility] (Rec: 10/08/21 12:07 [facility] [id number]) Current Condition History of Current Condition Onset Date 1 year Current Complaints right lateral thigh and LBP History of Current Condition Denies fall, gradual onset worsening LBP and lateral hip pain since having righ TKA 1 1 /2 years ago. Very limited in ability to take walks which she loves to do, increase in leg and back pain, unable to walk her usual 2-3 miles, has to stop at 1 - 1/4 miles. Has to use cane for balance and confidence. Doesn't stretch, uses some ice, no heat. Rare N/T, no giving way. Back and leg worse in am, and when unloading groceries. No regular exercise routine except walking. Previously has done some HEP from prior PT's. Also expresses a fear of stairs which sometimes even keeps her from going places, needs to have a railing and avoids curbs. Prior Treatments and Tests prior TKA 1 1/2 yrs ago. Recent x-ray of knee looked good per Dr. Liu. x-ray and MRI of spine: patient reports DDD, stenosis, arthritis Treatment Goals Patient/Caregiver Goals Would like to be able to walk more, be more confident with gait on stairs and curbs Prior Functional Status Baseline Function- ADL's Independent Baseline Function- Mobility Independent Baseline Function- Gait able to ambulate without cane 2 miles Current Functional Impairments (Reported) Functional Limitations- ADL's painful Functional Limitations- Mobility/Gait painful Functional Limitations- Recreation/ limited walking due to pain in Hobbies LB and right LE PT-OP-C Subjective Start: 10/07/21 16:10 Freq: Status: Active Protocol: Document 11/27/21 15:15 [facility] (Rec: 11/27/21 16:10 [facility] [id number]) OP-PT Subjective Patient Comments Patient Comments Got 10,000 steps yesterday, mostly cleaning garage. Muscle soreness after cleaning . PT-OP-D Balance Start: 10/07/21 16:10 Freq: Status: Active Protocol: Document 10/08/21 10:31 [facility] (Rec: 10/08/21 12:07 [facility] [id number]) OP-PT Balance Assessment Sitting Balance Static Sitting Balance Ability Normal Dynamic Sitting Balance Ability Normal Standing Balance Static Standing Balance Ability Fair Dynamic Standing Balance Ability Poor Balance Tests Single Limb Standing Single Limb- Right 0 Single Limb- Left 2 Tinetti Balance Assessment Sitting Balance Sitting Balance Steady, safe Arising from Chair Ability to Arise Able, uses arms to help Attempts to Arise Arises on 1st attempt Standing Balance Immediate Standing Balance Steady with support Standing Balance Steady, wide stance Nudged Response Staggers, catches self Standing with Eyes Closed Unsteady Turning Step Pattern Turning 360 Degrees Continuous steps Stability Turning 360 Degrees Unsteady, grabs/staggers Sitting Down Sitting Down Uses arms or unsteady Gait and Step Initiation of Gait No hesitancy Right Foot Step Length Does pass stance foot Right Foot Step Height Does not clear floor Left Foot Step Length Does pass stance foot Left Foot Step Height Does not clear floor Step Description Step Symmetry Step length not equal Step Continuity Steps appear continuous Gait Description Path Description Mild/moderate deviation Trunk Description No sway but posturing Walking Stance Heels together Scoring and Interpretation Tinetti Composite Score (points) 16 Interpretation of Scores High risk for falls(< 19) Weaver Fall Scale Copyright Permission PT-OP-G Mobility & Gait Start: 10/07/21 16:10 Freq: Status: Active Protocol: Document 10/08/21 10:31 [facility] (Rec: 10/08/21 12:07 [facility] [id number]) OP Gait Assessment Gait Gait Assistance Required: Independent Assistive Devices Assistive Device Straight Cane Gait Deviations General Gait Pattern Antalgic,Decreased Stride Length,Flexed Trunk Stair Climbing Evaluation Evaluation Level of Assist On Stairs Standby Assistance Devices Stair Climbing Assistive Devices Left Railing,Right Railing Technique/Endurance Stair Climbing Direction Descend Stair Climbing Technique Step Over Step Number of Steps Climbed 4 Comments Stair Climbing Comments 4 stairs and bilateral railing use. PT-OP-K Range of Motion Start: 10/07/21 16:10 Freq: Status: Active Protocol: Document 10/08/21 10:31 [facility] (Rec: 10/08/21 12:07 [facility] [id number]) Lumbar Spine Range of Motion Lumbar Spine Active Testing Position Standing Flexion 40 Extension 10 Rotation Left 35 Rotation Right 35 Lateral Flexion Left 20 Lateral Flexion Right 30 ROM Limitations Soft Tissue Tightness,Pain Comments pain when returning from forward flexion Hip Goniometric Range of Motion Hip Left Hip ROM WFL No Testing Position Supine Flexion w/Knee Flexed 110 Straight Leg Raise 60 Internal Rotation 15 External Rotation 50 Right Hip ROM WFL No Testing Position Supine Flexion w/Knee Flexed 110 Straight Leg Raise 65 Extension 0 Internal Rotation 45 External Rotation 25 Hip ROM Limitations Hip ROM Limitations Soft Tissue Tightness,Pain Ankle and Foot Goniometric Range of Motion Ankle and Foot Right Ankle/Foot ROM WFL No Comments mod tightness right gastroc Left Ankle/Foot ROM WFL Yes Ankle and Foot ROM Limitations ROM Limitations Soft Tissue Tightness PT-OP-L Special Tests Start: 10/07/21 16:10 Freq: Status: Active Protocol: Document 10/08/21 10:31 [facility] (Rec: 10/08/21 12:07 [facility] [id number]) Special Tests Lumbar Spine Special Tests Straight Leg Raise Test Results negative Hip Special Tests will Test Results positive right Piriformis Test Results positive right SANCHEZ Test Results negative Scour Test Test Results negative PT-OP-M Strength Start: 10/07/21 16:10 Freq: Status: Active Protocol: Document 10/08/21 10:31 [facility] (Rec: 10/08/21 12:07 [facility] [id number]) Trunk Strength Trunk Manual Muscle Testing Flexion 4- Good- Extension 4- Good- Hip Strength Hip Manual Muscle Testing Right Flexion (L2) 4 Good Extension (S1) 3+ Fair+ Abduction 4- Good- Adduction 4- Good- External Rotation 4- Good- Internal Rotation 4- Good- Left Flexion (L2) 4 Good Extension (S1) 3+ Fair+ Abduction 4- Good- Adduction 4 Good External Rotation 4- Good- Internal Rotation 4- Good- Knee Strength Knee Manual Muscle Testing Right Flexion (S2) 4 Good Extension (L3) 4 Good Comments pain lateral knee and patellar region with extension Left Flexion (S2) 4+ Good+ Extension (L3) 4+ Good+ Ankle/Foot Strength Ankle and Foot Manual Muscle Testing Right Dorsiflexion (L4) 4 Good Plantarflexion (S1) 4 Good Left Dorsiflexion (L4) 4+ Good+ Inversion 4+ Good+ PT-OP-Q Treatments Start: 10/07/21 16:10 Freq: Status: Active Protocol: Document 11/27/21 15:15 [facility] (Rec: 11/27/21 16:10 [facility] [id number]) Cardio Equipment Recumbent Stepper (Sci-Fit) Duration (Minutes) 5 Resistance 2.0 Seat Position 11 Other UE's and LE's 5 min, LE's only 5 min. Therapeutic Exercises Standing Exercises resisted sidestepping Standing Exercise Name f/b/side stepping in PT Resistance red band Equipment Used B UE on rail Reps/Minutes 1 lap each Comments cued tall posture, foot clearance and slow eccentric trailing LE wall posture Reps/Minutes 6x5 HC stretch Standing Exercise Name and hip flexor (lunge stretch) Reps/Minutes 30x 2 Gait Training Gait Activity step-ups,downs Description 6 box Device Used none Level of Assistance CGA Surface firm Distance/Duration 6x Treatment Focus safety, no UE support On level Device Used None Surface Level Treatment Focus gluteal activation, dec lateral sway Comments mirror for visual feedback. Stairs Device Used 6-8 stairs Distance/Duration 4 stairs x3 sets Comments one railing, emphasis on alignment, gluteal activation, alignment. Patient able to alternate LE's ascending, alternate descending step over step slow, cued feet //. Neuro Re-Education Treatment Balance Activities hurdles Details f/side stepping Surface firm Equipment rail PRN contact Comments 1 contact trailing LE due to stated feels off balance and tired. SLS Reps/Duration 3 min Comments CGA tandem stand Reps/Duration 3 min Comments CGA PT-OP-R Modalities Start: 10/07/21 16:10 Freq: Status: Active Protocol: Document 11/12/21 09:00 [facility] (Rec: 11/12/21 09:44 [facility] [id number]) Hot Pack/Cold Pack Treatment Hot Pack Comments patient declined. PT-OP-T Assessment and Plan Start: 10/07/21 16:10 Freq: Status: Active Protocol: Document 11/27/21 15:15 [facility] (Rec: 11/27/21 16:10 [facility] [id number]) Physical Therapy Assessment Goals 5 Impairment balance dysfunction Impairment Tinetti gait and balance score 16/28 indicating high risk for falls. [employer] Goal (LTG) Improve Tinetti score to at least 22/28 to decrease fall risk and improve confidence with mobility in the community . 11/27/21: Improved to 19/28 LTG Duration 01/06/22 4 Impairment difficulty ambulating on stairs and curbs Longterm Goal (LTG) Patient able to ascend and descend stairs with one railing with alternating step pattern and be able to safely ascend and descend curb with least restrictive device 11/27/21: Able to ascend and descend 6 curb with CGA, ascend and descend 10 4 stairs with unilateral rail alternating steps to ascend and alternating 50% with descending mixed with step-to pattern LTG Duration 01/06/22 progressing 11/22/21 3 Impairment Patient unable to take usual walks due to back and right LE pain Longterm Goal (LTG) Patient able to take walks of 2-3 miles with minimal to no increase in pain 11/22/21: progressing: pt stated last Thursday walked about 2 miles and just tired. The pain down R lateral leg basically gone now. 11/27/21: 10,000 steps yesterday, good progress LTG Duration 01/06/22 2 Impairment pain LB and right lateral LE and knee 6/10 on pain scale [employer] Goal (LTG) Decrease pain to no greater than 2/10 with all usual activiites. 11/22/21: Pt stated after walk on Thursday: pain hurts but not unbearable /. Heat/ stretching pain goes away. 11/27/21: good goal progress LTG Duration 01/06/22 1 Impairment activity intolerance related to LBP and right LE pain Impairment Oswestry disability index score 34% (lower number indicates less disability) LEFS 35% (higher number indicates improved function) [employer] Goal (LTG) Decrease JOSE score to no greater than 15% as measure decreased disability and improved function 11/27/21: JOSE decreased Improve LEFS score to at least 70% as measure of improved function and activity tolerance LTG Duration 01/06/22 Assessment Summary Assessment 5x sit to remote sensing program manager 23 sec. Patient has made good progress in decreasing pain, improving strength and activity tolerance. Has good potential for further improvement and fully achieving goals. Agreed to decrease frequency to 1x/ wk for 4 more weeks. Physical Therapy Plan Frequency and Duration Frequency of Treatment 2x/Week Duration of Treatment 12 weeks Plan of Care Start Date 10/08/21 Plan of Care End Date 01/06/22 Therapeutic Interventions Therapeutic Interventions Aquatic Therapy,Gait Training, Home Exercise Program,Manual Therapy,Neuromuscular Re- education,Patient/Caregiver Education,Self-Care/Home Management,Soft Tissue Mobilization,Taping, Therapeutic Activities, Therapeutic Exercises Modalities Cold Pack/Ice Massage,Electric Stimulation,Hot Packs, Infrared Therapy,Ultrasound Next Visit Focus/Plan Next Note Type Treatment Note Next Visit Plan Continue PT 1x/wk for 4 more weeks per POC
--- NOTE | 2021-12-04 15:18 | PT.OTN ---
Current Diagnoses Radiculopathy, lumbar region (12/04/21) Iliotibial band syndrome, right leg (12/04/21) Presence of right artificial knee joint (12/04/21) Physical Therapy Treatment Note PT-OP-A Visit Information Start: 10/07/21 16:10 Freq: Status: Active Protocol: Document 12/04/21 14:32 SAK (Rec: 12/04/21 15:18 SAK [id number]) Out-Patient Physical Therapy Visit Information Visit Information Visit Type Treatment Note Visit Start Time 14:30 Visit Stop Time 15:14 Total Visit Minutes 45 Visit Number 11 Number of EMBLEM MAKER Visits 0 PT-OP-B Current Condition Start: 10/07/21 16:10 Freq: Status: Active Protocol: Document 10/08/21 10:31 SAK (Rec: 10/08/21 12:07 SAK [id number]) Current Condition History of Current Condition Onset Date 1 year Current Complaints right lateral thigh and LBP History of Current Condition Denies fall, gradual onset worsening LBP and lateral hip pain since having righ TKA 1 1 /2 years ago. Very limited in ability to take walks which she loves to do, increase in leg and back pain, unable to walk her usual 2-3 miles, has to stop at 1 - 1/4 miles. Has to use cane for balance and confidence. Doesn't stretch, uses some ice, no heat. Rare N/T, no giving way. Back and leg worse in am, and when unloading groceries. No regular exercise routine except walking. Previously has done some HEP from prior PT's. Also expresses a fear of stairs which sometimes even keeps her from going places, needs to have a railing and avoids curbs. Prior Treatments and Tests prior TKA 1 1/2 yrs ago. Recent x-ray of knee looked good per Dr. Liu. x-ray and MRI of spine: patient reports DDD, stenosis, arthritis Treatment Goals Patient/Caregiver Goals Would like to be able to walk more, be more confident with gait on stairs and curbs Prior Functional Status Baseline Function- ADL's Independent Baseline Function- Mobility Independent Baseline Function- Gait able to ambulate without cane 2 miles Current Functional Impairments (Reported) Functional Limitations- ADL's painful Functional Limitations- Mobility/Gait painful Functional Limitations- Recreation/ limited walking due to pain in Hobbies LB and right LE PT-OP-C Subjective Start: 10/07/21 16:10 Freq: Status: Active Protocol: Document 12/04/21 14:32 SAK (Rec: 12/04/21 15:18 [facility] [id number]) OP-PT Subjective Patient Comments Patient Comments Stiff and sore today, not doing clamshell because not sure doing it correctly. PT-OP-D Balance Start: 10/07/21 16:10 Freq: Status: Active Protocol: Document 10/08/21 10:31 [facility] (Rec: 10/08/21 12:07 [facility] [id number]) OP-PT Balance Assessment Sitting Balance Static Sitting Balance Ability Normal Dynamic Sitting Balance Ability Normal Standing Balance Static Standing Balance Ability Fair Dynamic Standing Balance Ability Poor Balance Tests Single Limb Standing Single Limb- Right 0 Single Limb- Left 2 Tinetti Balance Assessment Sitting Balance Sitting Balance Steady, safe Arising from Chair Ability to Arise Able, uses arms to help Attempts to Arise Arises on 1st attempt Standing Balance Immediate Standing Balance Steady with support Standing Balance Steady, wide stance Nudged Response Staggers, catches self Standing with Eyes Closed Unsteady Turning Step Pattern Turning 360 Degrees Continuous steps Stability Turning 360 Degrees Unsteady, grabs/staggers Sitting Down Sitting Down Uses arms or unsteady Gait and Step Initiation of Gait No hesitancy Right Foot Step Length Does pass stance foot Right Foot Step Height Does not clear floor Left Foot Step Length Does pass stance foot Left Foot Step Height Does not clear floor Step Description Step Symmetry Step length not equal Step Continuity Steps appear continuous Gait Description Path Description Mild/moderate deviation Trunk Description No sway but posturing Walking Stance Heels together Scoring and Interpretation Tinetti Composite Score (points) 16 Interpretation of Scores High risk for falls(< 19) Weaver Fall Scale Copyright Permission PT-OP-G Mobility & Gait Start: 10/07/21 16:10 Freq: Status: Active Protocol: Document 10/08/21 10:31 [facility] (Rec: 10/08/21 12:07 [facility] [id number]) OP Gait Assessment Gait Gait Assistance Required: Independent Assistive Devices Assistive Device Straight Cane Gait Deviations General Gait Pattern Antalgic,Decreased Stride Length,Flexed Trunk Stair Climbing Evaluation Evaluation Level of Assist On Stairs Standby Assistance Devices Stair Climbing Assistive Devices Left Railing,Right Railing Technique/Endurance Stair Climbing Direction Descend Stair Climbing Technique Step Over Step Number of Steps Climbed 4 Comments Stair Climbing Comments 4 stairs and bilateral railing use. PT-OP-K Range of Motion Start: 10/07/21 16:10 Freq: Status: Active Protocol: Document 10/08/21 10:31 SAK (Rec: 10/08/21 12:07 [facility] [id number]) Lumbar Spine Range of Motion Lumbar Spine Active Testing Position Standing Flexion 40 Extension 10 Rotation Left 35 Rotation Right 35 Lateral Flexion Left 20 Lateral Flexion Right 30 ROM Limitations Soft Tissue Tightness,Pain Comments pain when returning from forward flexion Hip Goniometric Range of Motion Hip Left Hip ROM WFL No Testing Position Supine Flexion w/Knee Flexed 110 Straight Leg Raise 60 Internal Rotation 15 External Rotation 50 Right Hip ROM WFL No Testing Position Supine Flexion w/Knee Flexed 110 Straight Leg Raise 65 Extension 0 Internal Rotation 45 External Rotation 25 Hip ROM Limitations Hip ROM Limitations Soft Tissue Tightness,Pain Ankle and Foot Goniometric Range of Motion Ankle and Foot Right Ankle/Foot ROM WFL No Comments mod tightness right gastroc Left Ankle/Foot ROM WFL Yes Ankle and Foot ROM Limitations ROM Limitations Soft Tissue Tightness PT-OP-L Special Tests Start: 10/07/21 16:10 Freq: Status: Active Protocol: Document 10/08/21 10:31 [facility] (Rec: 10/08/21 12:07 [facility] [id number]) Special Tests Lumbar Spine Special Tests Straight Leg Raise Test Results negative Hip Special Tests will Test Results positive right Piriformis Test Results positive right SANCHEZ Test Results negative Scour Test Test Results negative PT-OP-M Strength Start: 10/07/21 16:10 Freq: Status: Active Protocol: Document 10/08/21 10:31 [facility] (Rec: 10/08/21 12:07 [facility] [id number]) Trunk Strength Trunk Manual Muscle Testing Flexion 4- Good- Extension 4- Good- Hip Strength Hip Manual Muscle Testing Right Flexion (L2) 4 Good Extension (S1) 3+ Fair+ Abduction 4- Good- Adduction 4- Good- External Rotation 4- Good- Internal Rotation 4- Good- Left Flexion (L2) 4 Good Extension (S1) 3+ Fair+ Abduction 4- Good- Adduction 4 Good External Rotation 4- Good- Internal Rotation 4- Good- Knee Strength Knee Manual Muscle Testing Right Flexion (S2) 4 Good Extension (L3) 4 Good Comments pain lateral knee and patellar region with extension Left Flexion (S2) 4+ Good+ Extension (L3) 4+ Good+ Ankle/Foot Strength Ankle and Foot Manual Muscle Testing Right Dorsiflexion (L4) 4 Good Plantarflexion (S1) 4 Good Left Dorsiflexion (L4) 4+ Good+ Inversion 4+ Good+ PT-OP-Q Treatments Start: 10/07/21 16:10 Freq: Status: Active Protocol: Document 12/04/21 14:32 [facility] (Rec: 12/04/21 15:18 [facility] [id number]) Cardio Equipment Recumbent Stepper (Sci-Fit) Duration (Minutes) 10 Resistance 2.0 Seat Position 11 Other UE's and LE's 5 min, LE's only 5 min. Gym Equipment Shuttle Epidemic Sound red Details balance and wt shift fwd and back: feet parallel, staggered Reps/Duration 7 min Therapeutic Exercises Standing Exercises resisted sidestepping Standing Exercise Name f/b/side stepping in PT Resistance red band Equipment Used B UE on rail Reps/Minutes 1 lap each Comments cued tall posture, foot clearance and slow eccentric trailing LE Gait Training Gait Activity step-ups,downs Description 6 box Device Used none Level of Assistance CGA Surface firm Distance/Duration 6x Treatment Focus safety, no UE support On level Device Used None Surface Level Treatment Focus gluteal activation, dec lateral sway Comments mirror for visual feedback. Stairs Device Used 6-8 stairs Distance/Duration 10 stairs x 2 ascend/descend Comments one railing, emphasis on alignment, gluteal activation, alignment. Patient able to alternate LE's ascending, alternate descending step over step slow, cued feet //. Neuro Re-Education Treatment Balance Activities obstacle course Equipment parallel bars, min UE support Reps/Duration 5 min Comments foam pods, 6 box hurdles Details f/side stepping Surface firm Equipment rail PRN contact Comments 1 contact trailing LE due to stated feels off balance and tired. PT-OP-R Modalities Start: 10/07/21 16:10 Freq: Status: Active Protocol: Document 11/12/21 09:00 [facility] (Rec: 11/12/21 09:44 [facility] [id number]) Hot Pack/Cold Pack Treatment Hot Pack Comments patient declined. PT-OP-T Assessment and Plan Start: 10/07/21 16:10 Freq: Status: Active Protocol: Document 12/04/21 14:32 [facility] (Rec: 12/04/21 15:18 [facility] [id number]) Physical Therapy Assessment Goals 5 Impairment balance dysfunction Impairment Tinetti gait and balance score 16/28 indicating high risk for falls. [facility] Goal (LTG) Improve Tinetti score to at least 22/28 to decrease fall risk and improve confidence with mobility in the community . 11/27/21: Improved to 1928 LTG Duration 01/06/22 4 Impairment difficulty ambulating on stairs and curbs [facility] Goal (LTG) Patient able to ascend and descend stairs with one railing with alternating step pattern and be able to safely ascend and descend curb with least restrictive device 11/27/21: Able to ascend and descend 6 curb with CGA, ascend and descend 10 4 stairs with unilateral rail alternating steps to ascend and alternating 50% with descending mixed with step-to pattern LTG Duration 01/06/22 progressing 11/22/21 3 Impairment Patient unable to take usual walks due to back and right LE pain [employer] Goal (LTG) Patient able to take walks of 2-3 miles with minimal to no increase in pain 11/22/21: progressing: pt stated last Thursday walked about 2 miles and just tired. The pain down R lateral leg basically gone now. 11/27/21: 10,000 steps yesterday, good progress LTG Duration 01/06/22 2 Impairment pain LB and right lateral LE and knee 6/10 on pain scale [employer] Goal (LTG) Decrease pain to no greater than 2/10 with all usual activiites. 11/22/21: Pt stated after walk on Thursday: pain hurts but not unbearable /10. Heat/ stretching pain goes away. 11/27/21: good goal progress LTG Duration 01/06/22 1 Impairment activity intolerance related to LBP and right LE pain Impairment Oswestry disability index score 34% (lower number indicates less disability) LEFS 35% (higher number indicates improved function) [facility] Goal (LTG) Decrease JOSE score to no greater than 15% as measure decreased disability and improved function 11/27/21: JOSE decreased Improve LEFS score to at least 70% as measure of improved function and activity tolerance LTG Duration 01/06/22 Assessment Summary Assessment Improving functional strength and balance noted, with decreased UE support on parallel bars with hurdles an dobstacle course, decreased UE support on shuttle balance and able to progress to more challenging activity. Able to do 4/10 sit to stands without UE support, Physical Therapy Plan Frequency and Duration Frequency of Treatment 2x/Week Duration of Treatment 12 weeks Plan of Care Start Date 10/08/21 Plan of Care End Date 01/06/22 Therapeutic Interventions Therapeutic Interventions Aquatic Therapy,Gait Training, Home Exercise Program,Manual Therapy,Neuromuscular Re- education,Patient/Caregiver Education,Self-Care/Home Management,Soft Tissue Mobilization,Taping, Therapeutic Activities, Therapeutic Exercises Modalities Cold Pack/Ice Massage,Electric Stimulation,Hot Packs, Infrared Therapy,Ultrasound Next Visit Focus/Plan Next Note Type Treatment Note Next Visit Plan Continue PT 1x/wk for 3 more weeks per POC
--- NOTE | 2021-12-25 11:25 | PT.OTN ---
Current Diagnoses Radiculopathy, lumbar region (12/25/21) Iliotibial band syndrome, right leg (12/25/21) Presence of right artificial knee joint (12/25/21) Physical Therapy Treatment Note PT-OP-A Visit Information Start: 10/07/21 16:10 Freq: Status: Active Protocol: Document 12/25/21 10:39 SP (Rec: 12/25/21 11:31 SP [id number]) Out-Patient Physical Therapy Visit Information Visit Information Visit Type Treatment Note Visit Start Time 10:39 Visit Stop Time 11:25 Total Visit Minutes 46 Visit Number 12 Number of GENERAL MEDICAL PRACTITIONER Visits 1 Evaluation Information Evaluation Date 10/08/21 PT-OP-B Current Condition Start: 10/07/21 16:10 Freq: Status: Active Protocol: Document 10/08/21 10:31 SAK (Rec: 10/08/21 12:07 SAK [id number]) Current Condition History of Current Condition Onset Date 1 year Current Complaints right lateral thigh and LBP History of Current Condition Denies fall, gradual onset worsening LBP and lateral hip pain since having righ TKA 1 1 /2 years ago. Very limited in ability to take walks which she loves to do, increase in leg and back pain, unable to walk her usual 2-3 miles, has to stop at 1 - 1/4 miles. Has to use cane for balance and confidence. Doesn't stretch, uses some ice, no heat. Rare N/T, no giving way. Back and leg worse in am, and when unloading groceries. No regular exercise routine except walking. Previously has done some HEP from prior PT's. Also expresses a fear of stairs which sometimes even keeps her from going places, needs to have a railing and avoids curbs. Prior Treatments and Tests prior TKA 1 1/2 yrs ago. Recent x-ray of knee looked good per Dr. Liu. x-ray and MRI of spine: patient reports DDD, stenosis, arthritis Treatment Goals Patient/Caregiver Goals Would like to be able to walk more, be more confident with gait on stairs and curbs Prior Functional Status Baseline Function- ADL's Independent Baseline Function- Mobility Independent Baseline Function- Gait able to ambulate without cane 2 miles Current Functional Impairments (Reported) Functional Limitations- ADL's painful Functional Limitations- Mobility/Gait painful Functional Limitations- Recreation/ limited walking due to pain in Hobbies LB and right LE PT-OP-C Subjective Start: 10/07/21 16:10 Freq: Status: Active Protocol: Document 12/25/21 10:39 SP (Rec: 12/25/21 11:31 SP [id number]) OP-PT Subjective Patient Comments Patient Comments Pt states is walking about 1.5 miles over level surfaces without much distractions for effort. She states stiff and sore but comes and goes. She reports welcoming of a break after these next 3 appts and wants to condense HEP, feels to be to many. PT-OP-D Balance Start: 10/07/21 16:10 Freq: Status: Active Protocol: Document 10/08/21 10:31 SAK (Rec: 10/08/21 12:07 SAK [id number]) OP-PT Balance Assessment Sitting Balance Static Sitting Balance Ability Normal Dynamic Sitting Balance Ability Normal Standing Balance Static Standing Balance Ability Fair Dynamic Standing Balance Ability Poor Balance Tests Single Limb Standing Single Limb- Right 0 Single Limb- Left 2 Tinetti Balance Assessment Sitting Balance Sitting Balance Steady, safe Arising from Chair Ability to Arise Able, uses arms to help Attempts to Arise Arises on 1st attempt Standing Balance Immediate Standing Balance Steady with support Standing Balance Steady, wide stance Nudged Response Staggers, catches self Standing with Eyes Closed Unsteady Turning Step Pattern Turning 360 Degrees Continuous steps Stability Turning 360 Degrees Unsteady, grabs/staggers Sitting Down Sitting Down Uses arms or unsteady Gait and Step Initiation of Gait No hesitancy Right Foot Step Length Does pass stance foot Right Foot Step Height Does not clear floor Left Foot Step Length Does pass stance foot Left Foot Step Height Does not clear floor Step Description Step Symmetry Step length not equal Step Continuity Steps appear continuous Gait Description Path Description Mild/moderate deviation Trunk Description No sway but posturing Walking Stance Heels together Scoring and Interpretation Tinetti Composite Score (points) 16 Interpretation of Scores High risk for falls(< 19) Weaver Fall Scale Copyright Permission PT-OP-G Mobility & Gait Start: 10/07/21 16:10 Freq: Status: Active Protocol: Document 10/08/21 10:31 SAK (Rec: 10/08/21 12:07 SAK [id number]) OP Gait Assessment Gait Gait Assistance Required: Independent Assistive Devices Assistive Device Straight Cane Gait Deviations General Gait Pattern Antalgic,Decreased Stride Length,Flexed Trunk Stair Climbing Evaluation Evaluation Level of Assist On Stairs Standby Assistance Devices Stair Climbing Assistive Devices Left Railing,Right Railing Technique/Endurance Stair Climbing Direction Descend Stair Climbing Technique Step Over Step Number of Steps Climbed 4 Comments Stair Climbing Comments 4 stairs and bilateral railing use. PT-OP-K Range of Motion Start: 10/07/21 16:10 Freq: Status: Active Protocol: Document 10/08/21 10:31 [facility] (Rec: 10/08/21 12:07 [facility] [id number]) Lumbar Spine Range of Motion Lumbar Spine Active Testing Position Standing Flexion 40 Extension 10 Rotation Left 35 Rotation Right 35 Lateral Flexion Left 20 Lateral Flexion Right 30 ROM Limitations Soft Tissue Tightness,Pain Comments pain when returning from forward flexion Hip Goniometric Range of Motion Hip Left Hip ROM WFL No Testing Position Supine Flexion w/Knee Flexed 110 Straight Leg Raise 60 Internal Rotation 15 External Rotation 50 Right Hip ROM WFL No Testing Position Supine Flexion w/Knee Flexed 110 Straight Leg Raise 65 Extension 0 Internal Rotation 45 External Rotation 25 Hip ROM Limitations Hip ROM Limitations Soft Tissue Tightness,Pain Ankle and Foot Goniometric Range of Motion Ankle and Foot Right Ankle/Foot ROM WFL No Comments mod tightness right gastroc Left Ankle/Foot ROM WFL Yes Ankle and Foot ROM Limitations ROM Limitations Soft Tissue Tightness PT-OP-L Special Tests Start: 10/07/21 16:10 Freq: Status: Active Protocol: Document 10/08/21 10:31 [facility] (Rec: 10/08/21 12:07 [facility] [id number]) Special Tests Lumbar Spine Special Tests Straight Leg Raise Test Results negative Hip Special Tests will Test Results positive right Piriformis Test Results positive right SANCHEZ Test Results negative Scour Test Test Results negative PT-OP-M Strength Start: 10/07/21 16:10 Freq: Status: Active Protocol: Document 10/08/21 10:31 [facility] (Rec: 10/08/21 12:07 [facility] [id number]) Trunk Strength Trunk Manual Muscle Testing Flexion 4- Good- Extension 4- Good- Hip Strength Hip Manual Muscle Testing Right Flexion (L2) 4 Good Extension (S1) 3+ Fair+ Abduction 4- Good- Adduction 4- Good- External Rotation 4- Good- Internal Rotation 4- Good- Left Flexion (L2) 4 Good Extension (S1) 3+ Fair+ Abduction 4- Good- Adduction 4 Good External Rotation 4- Good- Internal Rotation 4- Good- Knee Strength Knee Manual Muscle Testing Right Flexion (S2) 4 Good Extension (L3) 4 Good Comments pain lateral knee and patellar region with extension Left Flexion (S2) 4+ Good+ Extension (L3) 4+ Good+ Ankle/Foot Strength Ankle and Foot Manual Muscle Testing Right Dorsiflexion (L4) 4 Good Plantarflexion (S1) 4 Good Left Dorsiflexion (L4) 4+ Good+ Inversion 4+ Good+ PT-OP-Q Treatments Start: 10/07/21 16:10 Freq: Status: Active Protocol: Document 12/25/21 10:39 SP (Rec: 12/25/21 11:31 SP [id number]) Cardio Equipment Recumbent Stepper (Sci-Fit) Duration (Minutes) 10 Resistance 2.0 Seat Position 11 Other LE's only 1.27 miles. Therapeutic Exercises Supine Exercises LTR Supine Exercise Name added for stretch rotation Reps/Minutes x5 hold 5-10 sec Comments good feedback stretch SLR Supine Exercise Name HEP reviewed Reps/Minutes x10 Comments cued slow w/ TA awareness no higher than opp knee bridge Supine Exercise Name HEP review Resistance TB #3loop Reps/Minutes x10 Comments cued keep apart, good TA tolerant lift- painfree with good effort Sidelying Exercises hip abduction Sidelying Exercise Name x5 reps, states challenging maintain position and doesn't feel will continu Reps/Minutes 5x Comments cued stack onside and more hip ext w/ lift Sitting Exercises hamstring stretch Sitting Exercise Name HEP reviewed Reps/Minutes 2x30 Standing Exercises lunge hip flexor stretch Standing Exercise Name reviewed self HEP Equipment Used rail support Reps/Minutes 30 x2 Comments good form row, shld ext Standing Exercise Name states easy, not doing anything resisted sidestepping Standing Exercise Name side stepping suggested for HEP Resistance Tb #3 loop at thighs Equipment Used 1 UE on rail Reps/Minutes 2 lap each Comments cued tall posture, foot clearance and slow eccentric trailing LE, wall posture Standing Exercise Name reviewed Resistance AROM Reps/Minutes 6x5 Comments good form: TA, pec and LB stretch response PT-OP-R Modalities Start: 10/07/21 16:10 Freq: Status: Active Protocol: Document 11/12/21 09:00 SAK (Rec: 11/12/21 09:44 SAK [id number]) Hot Pack/Cold Pack Treatment Hot Pack Comments patient declined. PT-OP-T Assessment and Plan Start: 10/07/21 16:10 Freq: Status: Active Protocol: Document 12/25/21 10:39 SP (Rec: 12/25/21 11:31 SP [id number]) Physical Therapy Assessment Goals 5 Impairment balance dysfunction Impairment Tinetti gait and balance score 16/28 indicating high risk for falls. Graphic Coordinator Goal (LTG) Improve Tinetti score to at least 22/28 to decrease fall risk and improve confidence with mobility in the community . 11/27/21: Improved to LTG Duration 01/06/22 4 Impairment difficulty ambulating on stairs and curbs Graphic Coordinator Goal (LTG) Patient able to ascend and descend stairs with one railing with alternating step pattern and be able to safely ascend and descend curb with least restrictive device 11/27/21: Able to ascend and descend 6 curb with CGA, ascend and descend 10 4 stairs with unilateral rail alternating steps to ascend and alternating 50% with descending mixed with step-to pattern LTG Duration 01/06/22 progressing 11/22/21 3 Impairment Patient unable to take usual walks due to back and right LE pain Graphic Coordinator Goal (LTG) Patient able to take walks of 2-3 miles with minimal to no increase in pain 11/22/21: progressing: pt stated last Thursday walked about 2 miles and just tired. The pain down R lateral leg basically gone now. 11/27/21: 10,000 steps yesterday, good progress 12/25/21: progressing 1.5 miles level surfaces and over the 6, 000 step of personal goal. LTG Duration 01/06/22 progressin12/25/21 2 Impairment pain LB and right lateral LE and knee 6/10 on pain scale Graphic Coordinator Goal (LTG) Decrease pain to no greater than 2/10 with all usual activiites. 11/22/21: Pt stated after walk on Thursday: pain hurts but not unbearable 4/10. Heat/ stretching pain goes away. 11/27/21: good goal progress 12/25/21: progressing: states leg pain gone but LBP could be better getting up in am worst 4/10 and takes ibuprofen to help 2-3/10 LBP on arrival. LTG Duration 01/06/22 progressin12/25/21 1 Impairment activity intolerance related to LBP and right LE pain Impairment Oswestry disability index score 34% (lower number indicates less disability) LEFS 35% (higher number indicates improved function) Alf Goal (LTG) Decrease JOSE score to no greater than 15% as measure decreased disability and improved function 11/27/21: JOSE decreased Improve LEFS score to at least 70% as measure of improved function and activity tolerance LTG Duration 01/06/22 Assessment Summary Assessment Pt good response to LTR added today for improved ROM for am stiffness. She had good form and felt more confident with condensed HEP, see performed today as HEP. She notices overall improvement and understanding with ed for selected HEP for posture, TA and hip abd strengthening for stability and endurance gait. Pt wanting to complete the last appt then DC to HEP. Physical Therapy Plan Frequency and Duration Frequency of Treatment 2x/Week Duration of Treatment 12 weeks Plan of Care Start Date 10/08/21 Plan of Care End Date 01/06/22 Therapeutic Interventions Therapeutic Interventions Aquatic Therapy,Gait Training, Home Exercise Program,Manual Therapy,Neuromuscular Re- education,Patient/Caregiver Education,Self-Care/Home Management,Soft Tissue Mobilization,Taping, Therapeutic Activities, Therapeutic Exercises Modalities Cold Pack/Ice Massage,Electric Stimulation,Hot Packs, Infrared Therapy,Ultrasound Next Visit Focus/Plan Next Note Type Discharge Summary Next Visit Plan 1 more appt then DC to HEP. Recheck HEP doable. Work eccentric control for descending stairs due to patient difficulty controlling descent and STS for HEP.
--- NOTE | 2022-01-01 10:01 | PT.OPPOC ---
Physical, Occupational & Speech Therapy At [facility] Current Diagnoses Radiculopathy, lumbar region (01/01/22) Iliotibial band syndrome, right leg (01/01/22) Presence of right artificial knee joint (01/01/22) Visit Care Team Role Provider Type Symone Landrum PA-C Family Provider Non-Staff Primary Care Provider Specialty: Internal Medicine Address: [address] [place] [address], [id number] Email: [email or web address] Germán Liu MD Attending Provider Physician Referring Provider Specialty: Orthopedics Orthopedic Surgery Address: [address] [place] [address], [id number] Email: [email or web address] Plan Of Care PT-OP-T Assessment and Plan Start: 10/07/21 16:10 Freq: Status: Active Protocol: Document 01/01/22 14:31 SAK (Rec: 01/01/22 15:16 [facility] [id number]) Physical Therapy Assessment Goals 5 Impairment balance dysfunction Impairment Tinetti gait and balance score 16/28 indicating high risk for falls. Senior Living Goal (LTG) Improve Tinetti score to at least 22/28 to decrease fall risk and improve confidence with mobility in the community . 11/27/21: Improved to 19/28 01/01/22: Improved to 28 LTG Duration 01/31/22 4 Impairment difficulty ambulating on stairs and curbs Mixing And Molding Machine Operator Goal (LTG) Patient able to ascend and descend stairs with one railing with alternating step pattern and be able to safely ascend and descend curb with least restrictive device 11/27/21: Able to ascend and descend 6 curb with CGA, ascend and descend 10 4 stairs with unilateral rail alternating steps to ascend and alternating 50% with descending mixed with step-to pattern 11/22/21: progressing, difficulty with descending 01/01/22: improved but still difficulty with eccentric control with descend, though able to descend 75% with alternating pattern. LTG Duration 01/31/22 3 Impairment Patient unable to take usual walks due to back and right LE pain Mixing And Molding Machine Operator Goal (LTG) Patient able to take walks of 2-3 miles with minimal to no increase in pain 11/22/21: progressing: pt stated last Thursday walked about 2 miles and just tired. The pain down R lateral leg basically gone now. 11/27/21: 10,000 steps yesterday, good progress 12/25/21: progressing 1.5 miles level surfaces and over the 6, 000 step of personal goal. LTG Duration 01/31/22 2 Impairment pain LB and right lateral LE and knee /10 on pain scale Senior Living Goal (LTG) Decrease pain to no greater than 2/10 with all usual activiites. 11/22/21: Pt stated after walk on Thursday: pain hurts but not unbearable 10/27. Heat/ stretching pain goes away. 11/27/21: good goal progress 12/25/21: progressing: states leg pain gone but LBP could be better getting up in am worst 10/27 and takes ibuprofen to help 2-3/10 LBP on arrival. 01/01/22: improving with PT, still difficult to get myself to stand straight LTG Duration 01/31/22 1 Impairment activity intolerance related to LBP and right LE pain Impairment Oswestry disability index score 34% (lower number indicates less disability) LEFS 35% (higher number indicates improved function) Mixing And Molding Machine Operator Goal (LTG) Decrease JOSE score to no greater than 15% as measure decreased disability and improved function 11/27/21: JOSE decreased Improve LEFS score to at least 70% as measure of improved function and activity tolerance 01/01/22: goal progress LTG Duration 01/31/22 Assessment Summary Assessment Patient progressing with tolerance for walking, improved balance and safety with gait. Still unable to lower with good eccentric control descending stairs. Added band to distal thighs with sit to stand for increased lateral hip functional strengthening. Should be ready for discharge after 2 further visits. Physical Therapy Plan Frequency and Duration Frequency of Treatment 1x/Week Duration of Treatment 4 wks Plan of Care Start Date 01/01/22 Plan of Care End Date 01/31/22 Therapeutic Interventions Therapeutic Interventions Aquatic Therapy,Gait Training, Home Exercise Program,Manual Therapy,Neuromuscular Re- education,Patient/Caregiver Education,Self-Care/Home Management,Soft Tissue Mobilization,Taping, Therapeutic Activities, Therapeutic Exercises Modalities Cold Pack/Ice Massage,Electric Stimulation,Hot Packs, Infrared Therapy,Ultrasound Next Visit Focus/Plan Next Note Type Treatment Note Next Visit Plan 2 more PT visits then anticipate discharge. Continue to progress functional strengthening and ROM. Patient to bring in written HEP for review and modification as needed. Plan of Care Dates Plan of Care Start Date 01/01/22 Plan of Care End Date 01/31/22 Electronically Signed by: Deanna Ellington, PT 01/05/22 1001 If you are in agreement with this Plan of Care, please return a signed and dated copy. I have reviewed this Plan of Care and certify that the skilled therapy services above are required to meet the patient?s needs. Physician Signature Date Printed Name and Credentials Clinical Instructor Signature Printed Name and Credentials
--- NOTE | 2022-01-01 10:01 | PT.OTRE ---
Current Diagnoses Radiculopathy, lumbar region (01/01/22) Iliotibial band syndrome, right leg (01/01/22) Presence of right artificial knee joint (01/01/22) Past Medical History (Last Reviewed 04/08/20 @ 21:06 by ANDREW Urban) Chronic low back pain DDD (degenerative disc disease) Hearing loss Heartburn HLD (hyperlipidemia) Hypothyroid Macular degeneration of both eyes Osteoarthritis Seasonal allergies Surgical History (Last Reviewed 04/08/20 @ 21:06 by ANDREW Urban) History of colonoscopy History of surgery on arm Hx of bilateral cataract extraction (~2012) Hx of hemorrhoidectomy (~1976) Hx of knee surgery (~1959) S/P epidural steroid injection Visit Care Team Role Provider Type Symone Landrum PA-C Family Provider Non-Staff Primary Care Provider Specialty: Internal Medicine Address: [address] [place] [address], [facility] Email: [email or web address] Germán Liu MD Attending Provider Physician Referring Provider Specialty: Orthopedics Orthopedic Surgery Address: [address] [place] [address], [id number] Email: [email or web address] Physical Therapy Re-Evaluation PT-OP-A Visit Information Start: 10/07/21 16:10 Freq: Status: Active Protocol: Document 01/01/22 14:31 [facility] (Rec: 01/01/22 15:16 [facility] [id number]) Out-Patient Physical Therapy Visit Information Visit Information Visit Type Treatment Note Visit Start Time 14:31 Visit Stop Time 15:15 Total Visit Minutes 44 Visit Number 13 Number of ASSOCIATE [employer]GER [employer] Visits 0 Evaluation Information Evaluation Date 10/08/21 PT-OP-B Current Condition Start: 10/07/21 16:10 Freq: Status: Active Protocol: Document 10/08/21 10:31 [facility] (Rec: 10/08/21 12:07 [facility] [id number]) Current Condition History of Current Condition Onset Date 1 year Current Complaints right lateral thigh and LBP History of Current Condition Denies fall, gradual onset worsening LBP and lateral hip pain since having righ TKA 1 1 /2 years ago. Very limited in ability to take walks which she loves to do, increase in leg and back pain, unable to walk her usual 2-3 miles, has to stop at 1 - 1/4 miles. Has to use cane for balance and confidence. Doesn't stretch, uses some ice, no heat. Rare N/T, no giving way. Back and leg worse in am, and when unloading groceries. No regular exercise routine except walking. Previously has done some HEP from prior PT's. Also expresses a fear of stairs which sometimes even keeps her from going places, needs to have a railing and avoids curbs. Prior Treatments and Tests prior TKA 1 1/2 yrs ago. Recent x-ray of knee looked good per Dr. Liu. x-ray and MRI of spine: patient reports DDD, stenosis, arthritis Treatment Goals Patient/Caregiver Goals Would like to be able to walk more, be more confident with gait on stairs and curbs Prior Functional Status Baseline Function- ADL's Independent Baseline Function- Mobility Independent Baseline Function- Gait able to ambulate without cane 2 miles Current Functional Impairments (Reported) Functional Limitations- ADL's painful Functional Limitations- Mobility/Gait painful Functional Limitations- Recreation/ limited walking due to pain in Hobbies LB and right LE PT-OP-C Subjective Start: 10/07/21 16:10 Freq: Status: Active Protocol: Document 01/01/22 14:31 [facility] (Rec: 01/01/22 15:16 [facility] [id number]) OP-PT Subjective Patient Comments Patient Comments Stiff and sore from moving furniture for window washing yesterday. Compliant to HEP except yesterday. Not waking up with ITband pain like I used to. Worried after discharge from PT won't be able to keep on track with HEP . Agreed to bring HEP handouts next session for review and updating/ modification as needed. PT-OP-D Balance Start: 10/07/21 16:10 Freq: Status: Active Protocol: Document 10/08/21 10:31 [facility] (Rec: 10/08/21 12:07 [facility] [id number]) OP-PT Balance Assessment Sitting Balance Static Sitting Balance Ability Normal Dynamic Sitting Balance Ability Normal Standing Balance Static Standing Balance Ability Fair Dynamic Standing Balance Ability Poor Balance Tests Single Limb Standing Single Limb- Right 0 Single Limb- Left 2 Tinetti Balance Assessment Sitting Balance Sitting Balance Steady, safe Arising from Chair Ability to Arise Able, uses arms to help Attempts to Arise Arises on 1st attempt Standing Balance Immediate Standing Balance Steady with support Standing Balance Steady, wide stance Nudged Response Staggers, catches self Standing with Eyes Closed Unsteady Turning Step Pattern Turning 360 Degrees Continuous steps Stability Turning 360 Degrees Unsteady, grabs/staggers Sitting Down Sitting Down Uses arms or unsteady Gait and Step Initiation of Gait No hesitancy Right Foot Step Length Does pass stance foot Right Foot Step Height Does not clear floor Left Foot Step Length Does pass stance foot Left Foot Step Height Does not clear floor Step Description Step Symmetry Step length not equal Step Continuity Steps appear continuous Gait Description Path Description Mild/moderate deviation Trunk Description No sway but posturing Walking Stance Heels together Scoring and Interpretation Tinetti Composite Score (points) 16 Interpretation of Scores High risk for falls(< 19) Weaver Fall Scale Copyright Permission Meg WILLIAM, Meg RM, Mary SJ. Development of a scale to identify the fall- prone patient. Can J Aging 1989;8;366-7. Alice Weaver (2009). Preventing patient falls. (2nd ed). [place]: [place]. PT-OP-G Mobility & Gait Start: 10/07/21 16:10 Freq: Status: Active Protocol: Document 10/08/21 10:31 [facility] (Rec: 10/08/21 12:07 [facility] [id number]) OP Gait Assessment Gait Gait Assistance Required: Independent Assistive Devices Assistive Device Straight Cane Gait Deviations General Gait Pattern Antalgic,Decreased Stride Length,Flexed Trunk Stair Climbing Evaluation Evaluation Level of Assist On Stairs Standby Assistance Devices Stair Climbing Assistive Devices Left Railing,Right Railing Technique/Endurance Stair Climbing Direction Descend Stair Climbing Technique Step Over Step Number of Steps Climbed 4 Comments Stair Climbing Comments 4 stairs and bilateral railing use. PT-OP-K Range of Motion Start: 10/07/21 16:10 Freq: Status: Active Protocol: Document 10/08/21 10:31 [facility] (Rec: 10/08/21 12:07 [facility] [id number]) Lumbar Spine Range of Motion Lumbar Spine Active Testing Position Standing Flexion 40 Extension 10 Rotation Left 35 Rotation Right 35 Lateral Flexion Left 20 Lateral Flexion Right 30 ROM Limitations Soft Tissue Tightness,Pain Comments pain when returning from forward flexion Hip Goniometric Range of Motion Hip Measured in Degrees Left Hip ROM WFL No Testing Position Supine Flexion w/Knee Flexed 110 Straight Leg Raise 60 Internal Rotation 15 External Rotation 50 Right Hip ROM WFL No Testing Position Supine Flexion w/Knee Flexed 110 Straight Leg Raise 65 Extension 0 Internal Rotation 45 External Rotation 25 Hip ROM Limitations Hip ROM Limitations Soft Tissue Tightness,Pain Ankle and Foot Goniometric Range of Motion Ankle and Foot Measured in Degrees Right Ankle/Foot ROM WFL No Comments mod tightness right gastroc Left Ankle/Foot ROM WFL Yes Ankle and Foot ROM Limitations ROM Limitations Soft Tissue Tightness PT-OP-L Special Tests Start: 10/07/21 16:10 Freq: Status: Active Protocol: Document 10/08/21 10:31 [facility] (Rec: 10/08/21 12:07 [facility] [id number]) Special Tests Lumbar Spine Special Tests Straight Leg Raise Test Results negative Hip Special Tests will Test Results positive right Piriformis Test Results positive right SANCHEZ Test Results negative Scour Test Test Results negative PT-OP-M Strength Start: 10/07/21 16:10 Freq: Status: Active Protocol: Document 10/08/21 10:31 [facility] (Rec: 10/08/21 12:07 [facility] [id number]) Trunk Strength Trunk Manual Muscle Testing Flexion 4- Good- Extension 4- Good- Hip Strength Hip Manual Muscle Testing Right Flexion (L2) 4 Good Extension (S1) 3+ Fair+ Abduction 4- Good- Adduction 4- Good- External Rotation 4- Good- Internal Rotation 4- Good- Left Flexion (L2) 4 Good Extension (S1) 3+ Fair+ Abduction 4- Good- Adduction 4 Good External Rotation 4- Good- Internal Rotation 4- Good- Knee Strength Knee Manual Muscle Testing Right Flexion (S2) 4 Good Extension (L3) 4 Good Comments pain lateral knee and patellar region with extension Left Flexion (S2) 4+ Good+ Extension (L3) 4+ Good+ Ankle/Foot Strength Ankle and Foot Manual Muscle Testing Right Dorsiflexion (L4) 4 Good Plantarflexion (S1) 4 Good Left Dorsiflexion (L4) 4+ Good+ Inversion 4+ Good+ PT-OP-Q Treatments Start: 10/07/21 16:10 Freq: Status: Active Protocol: Document 01/01/22 14:31 [facility] (Rec: 01/01/22 15:16 [facility] [id number]) Cardio Equipment Recumbent Stepper (Sci-Fit) Duration (Minutes) 10 Resistance 2.0 Seat Position 11 Other LE's only 1.27 miles. Gym Equipment Shuttle Balance red Details balance and wt shift fwd and back: feet parallel, staggered Reps/Duration 8 min Therapeutic Exercises Supine Exercises LTR Reps/Minutes x5 hold 5-10 sec Comments good feedback stretch SLR Supine Exercise Name HEP reviewed Reps/Minutes x10 Comments cued slow w/ TA awareness no higher than opp knee bridge Supine Exercise Name HEP review Resistance TB #3loop Reps/Minutes x10 Comments cued keep apart, good TA tolerant lift- painfree with good effort Sitting Exercises sit to stand Resistance red band around distal thighs Reps/Minutes 10x Standing Exercises resisted sidestepping Standing Exercise Name side stepping Resistance Tb #3 loop at ankles Equipment Used 1 UE on rail Reps/Minutes 2 lap each Comments cued tall posture, foot clearance and slow eccentric trailing LE, Gait Training Gait Activity On level Device Used None Surface Level Treatment Focus gluteal activation, dec lateral sway Comments mirror for visual feedback. Stairs Device Used 6-8 stairs Distance/Duration 10 stairs x 2 ascend/descend Comments one railing, emphasis on alignment, gluteal activation, alignment. Patient able to alternate LE's ascending, alternate descending step over step slow, cued feet //. Neuro Re-Education Treatment Balance Activities hurdles Details f/side stepping Surface firm Equipment rail PRN contact PT-OP-R Modalities Start: 10/07/21 16:10 Freq: Status: Active Protocol: Document 11/12/21 09:00 [facility] (Rec: 11/12/21 09:44 [facility] [id number]) Hot Pack/Cold Pack Treatment Hot Pack Comments patient declined. PT-OP-T Assessment and Plan Start: 10/07/21 16:10 Freq: Status: Active Protocol: Document 01/01/22 14:31 [facility] (Rec: 01/01/22 15:16 [facility] [id number]) Physical Therapy Assessment Goals 5 Impairment balance dysfunction Impairment Tinetti gait and balance score 16/28 indicating high risk for falls. Prison Goal (LTG) Improve Tinetti score to at least 22/28 to decrease fall risk and improve confidence with mobility in the community . 11/27/21: Improved to 19/28 01/01/22: Improved to 21/28 LTG Duration 01/31/22 4 Impairment difficulty ambulating on stairs and curbs Qual Field Manager Goal (LTG) Patient able to ascend and descend stairs with one railing with alternating step pattern and be able to safely ascend and descend curb with least restrictive device 11/27/21: Able to ascend and descend 6 curb with CGA, ascend and descend 10 4 stairs with unilateral rail alternating steps to ascend and alternating 50% with descending mixed with step-to pattern 11/22/21: progressing, difficulty with descending 01/01/22: improved but still difficulty with eccentric control with descend, though able to descend 75% with alternating pattern. LTG Duration 01/31/22 3 Impairment Patient unable to take usual walks due to back and right LE pain Prison Goal (LTG) Patient able to take walks of 2-3 miles with minimal to no increase in pain 11/22/21: progressing: pt stated last Thursday walked about 2 miles and just tired. The pain down R lateral leg basically gone now. 11/27/21: 10,000 steps yesterday, good progress 12/25/21: progressing 1.5 miles level surfaces and over the 6, 000 step of personal goal. LTG Duration 01/31/22 2 Impairment pain LB and right lateral LE and knee 6/10 on pain scale Prison Goal (LTG) Decrease pain to no greater than 2/10 with all usual activiites. 11/22/21: Pt stated after walk on Thursday: pain hurts but not unbearable 4/10. Heat/ stretching pain goes away. 11/27/21: good goal progress 12/25/21: progressing: states leg pain gone but LBP could be better getting up in am worst 4/10 and takes ibuprofen to help 2-3/10 LBP on arrival. 01/01/22: improving with PT, still difficult to get myself to stand straight LTG Duration 01/31/22 1 Impairment activity intolerance related to LBP and right LE pain Impairment Oswestry disability index score 34% (lower number indicates less disability) LEFS 35% (higher number indicates improved function) Qual Field Manager Goal (LTG) Decrease JOSE score to no greater than 15% as measure decreased disability and improved function 11/27/21: JOSE decreased Improve LEFS score to at least 70% as measure of improved function and activity tolerance 01/01/22: goal progress LTG Duration 01/31/22 Assessment Summary Assessment Patient progressing with tolerance for walking, improved balance and safety with gait. Still unable to lower with good eccentric control descending stairs. Added band to distal thighs with sit to stand for increased lateral hip functional strengthening. Should be ready for discharge after 2 further visits. Physical Therapy Plan Frequency and Duration Frequency of Treatment 1x/Week Duration of Treatment 4 wks Plan of Care Start Date 01/01/22 Plan of Care End Date 01/31/22 Therapeutic Interventions Therapeutic Interventions Aquatic Therapy,Gait Training, Home Exercise Program,Manual Therapy,Neuromuscular Re- education,Patient/Caregiver Education,Self-Care/Home Management,Soft Tissue Mobilization,Taping, Therapeutic Activities, Therapeutic Exercises Modalities Cold Pack/Ice Massage,Electric Stimulation,Hot Packs, Infrared Therapy,Ultrasound Next Visit Focus/Plan Next Note Type Treatment Note Next Visit Plan 2 more PT visits then anticipate discharge. Continue to progress functional strengthening and ROM. Patient to bring in written HEP for review and modification as needed.
--- NOTE | 2022-01-01 17:14 | PT.OTN ---
Current Diagnoses Radiculopathy, lumbar region (01/01/22) Iliotibial band syndrome, right leg (01/01/22) Presence of right artificial knee joint (01/01/22) Physical Therapy Treatment Note PT-OP-A Visit Information Start: 10/07/21 16:10 Freq: Status: Active Protocol: Document 01/01/22 14:31 [facility] (Rec: 01/01/22 15:16 [facility] [id number]) Out-Patient Physical Therapy Visit Information Visit Information Visit Type Treatment Note Visit Start Time 14:31 Visit Stop Time 15:15 Total Visit Minutes 44 Visit Number 13 Number of FIELD COLLECTOR Visits 0 Evaluation Information Evaluation Date 10/08/21 PT-OP-B Current Condition Start: 10/07/21 16:10 Freq: Status: Active Protocol: Document 10/08/21 10:31 [facility] (Rec: 10/08/21 12:07 [facility] [id number]) Current Condition History of Current Condition Onset Date 1 year Current Complaints right lateral thigh and LBP History of Current Condition Denies fall, gradual onset worsening LBP and lateral hip pain since having righ TKA 1 1 /2 years ago. Very limited in ability to take walks which she loves to do, increase in leg and back pain, unable to walk her usual 2-3 miles, has to stop at 1 - 1/4 miles. Has to use cane for balance and confidence. Doesn't stretch, uses some ice, no heat. Rare N/T, no giving way. Back and leg worse in am, and when unloading groceries. No regular exercise routine except walking. Previously has done some HEP from prior PT's. Also expresses a fear of stairs which sometimes even keeps her from going places, needs to have a railing and avoids curbs. Prior Treatments and Tests prior TKA 1 1/2 yrs ago. Recent x-ray of knee looked good per Dr. Liu. x-ray and MRI of spine: patient reports DDD, stenosis, arthritis Treatment Goals Patient/Caregiver Goals Would like to be able to walk more, be more confident with gait on stairs and curbs Prior Functional Status Baseline Function- ADL's Independent Baseline Function- Mobility Independent Baseline Function- Gait able to ambulate without cane 2 miles Current Functional Impairments (Reported) Functional Limitations- ADL's painful Functional Limitations- Mobility/Gait painful Functional Limitations- Recreation/ limited walking due to pain in Hobbies LB and right LE PT-OP-C Subjective Start: 10/07/21 16:10 Freq: Status: Active Protocol: Document 01/01/22 14:31 [facility] (Rec: 01/01/22 15:16 [facility] [id number]) OP-PT Subjective Patient Comments Patient Comments Stiff and sore from moving furniture for window washing yesterday. Compliant to HEP except yesterday. Not waking up with ITband pain like I used to. Worried after discharge from PT won't be able to keep on track with HEP . Agreed to bring HEP handouts next session for review and updating/ modification as needed. PT-OP-D Balance Start: 10/07/21 16:10 Freq: Status: Active Protocol: Document 10/08/21 10:31 [facility] (Rec: 10/08/21 12:07 [facility] [id number]) OP-PT Balance Assessment Sitting Balance Static Sitting Balance Ability Normal Dynamic Sitting Balance Ability Normal Standing Balance Static Standing Balance Ability Fair Dynamic Standing Balance Ability Poor Balance Tests Single Limb Standing Single Limb- Right 0 Single Limb- Left 2 Tinetti Balance Assessment Sitting Balance Sitting Balance Steady, safe Arising from Chair Ability to Arise Able, uses arms to help Attempts to Arise Arises on 1st attempt Standing Balance Immediate Standing Balance Steady with support Standing Balance Steady, wide stance Nudged Response Staggers, catches self Standing with Eyes Closed Unsteady Turning Step Pattern Turning 360 Degrees Continuous steps Stability Turning 360 Degrees Unsteady, grabs/staggers Sitting Down Sitting Down Uses arms or unsteady Gait and Step Initiation of Gait No hesitancy Right Foot Step Length Does pass stance foot Right Foot Step Height Does not clear floor Left Foot Step Length Does pass stance foot Left Foot Step Height Does not clear floor Step Description Step Symmetry Step length not equal Step Continuity Steps appear continuous Gait Description Path Description Mild/moderate deviation Trunk Description No sway but posturing Walking Stance Heels together Scoring and Interpretation Tinetti Composite Score (points) 16 Interpretation of Scores High risk for falls(< 19) Weaver Fall Scale Copyright Permission PT-OP-G Mobility & Gait Start: 10/07/21 16:10 Freq: Status: Active Protocol: Document 10/08/21 10:31 [facility] (Rec: 10/08/21 12:07 [facility] [id number]) OP Gait Assessment Gait Gait Assistance Required: Independent Assistive Devices Assistive Device Straight Cane Gait Deviations General Gait Pattern Antalgic,Decreased Stride Length,Flexed Trunk Stair Climbing Evaluation Evaluation Level of Assist On Stairs Standby Assistance Devices Stair Climbing Assistive Devices Left Railing,Right Railing Technique/Endurance Stair Climbing Direction Descend Stair Climbing Technique Step Over Step Number of Steps Climbed 4 Comments Stair Climbing Comments 4 stairs and bilateral railing use. PT-OP-K Range of Motion Start: 10/07/21 16:10 Freq: Status: Active Protocol: Document 10/08/21 10:31 [facility] (Rec: 10/08/21 12:07 [facility] [id number]) Lumbar Spine Range of Motion Lumbar Spine Active Testing Position Standing Flexion 40 Extension 10 Rotation Left 35 Rotation Right 35 Lateral Flexion Left 20 Lateral Flexion Right 30 ROM Limitations Soft Tissue Tightness,Pain Comments pain when returning from forward flexion Hip Goniometric Range of Motion Hip Left Hip ROM WFL No Testing Position Supine Flexion w/Knee Flexed 110 Straight Leg Raise 60 Internal Rotation 15 External Rotation 50 Right Hip ROM WFL No Testing Position Supine Flexion w/Knee Flexed 110 Straight Leg Raise 65 Extension 0 Internal Rotation 45 External Rotation 25 Hip ROM Limitations Hip ROM Limitations Soft Tissue Tightness,Pain Ankle and Foot Goniometric Range of Motion Ankle and Foot Right Ankle/Foot ROM WFL No Comments mod tightness right gastroc Left Ankle/Foot ROM WFL Yes Ankle and Foot ROM Limitations ROM Limitations Soft Tissue Tightness PT-OP-L Special Tests Start: 10/07/21 16:10 Freq: Status: Active Protocol: Document 10/08/21 10:31 [facility] (Rec: 10/08/21 12:07 [facility] [id number]) Special Tests Lumbar Spine Special Tests Straight Leg Raise Test Results negative Hip Special Tests will Test Results positive right Piriformis Test Results positive right SANCHEZ Test Results negative Scour Test Test Results negative PT-OP-M Strength Start: 10/07/21 16:10 Freq: Status: Active Protocol: Document 10/08/21 10:31 [facility] (Rec: 10/08/21 12:07 [facility] [id number]) Trunk Strength Trunk Manual Muscle Testing Flexion 4- Good- Extension 4- Good- Hip Strength Hip Manual Muscle Testing Right Flexion (L2) 4 Good Extension (S1) 3+ Fair+ Abduction 4- Good- Adduction 4- Good- External Rotation 4- Good- Internal Rotation 4- Good- Left Flexion (L2) 4 Good Extension (S1) 3+ Fair+ Abduction 4- Good- Adduction 4 Good External Rotation 4- Good- Internal Rotation 4- Good- Knee Strength Knee Manual Muscle Testing Right Flexion (S2) 4 Good Extension (L3) 4 Good Comments pain lateral knee and patellar region with extension Left Flexion (S2) 4+ Good+ Extension (L3) 4+ Good+ Ankle/Foot Strength Ankle and Foot Manual Muscle Testing Right Dorsiflexion (L4) 4 Good Plantarflexion (S1) 4 Good Left Dorsiflexion (L4) 4+ Good+ Inversion 4+ Good+ PT-OP-Q Treatments Start: 10/07/21 16:10 Freq: Status: Active Protocol: Document 01/01/22 14:31 [facility] (Rec: 01/01/22 15:16 [facility] [id number]) Cardio Equipment Recumbent Stepper (Sci-Fit) Duration (Minutes) 10 Resistance 2.0 Seat Position 11 Other LE's only 1.27 miles. Gym Equipment Shuttle Balance red Details balance and wt shift fwd and back: feet parallel, staggered Reps/Duration 8 min Therapeutic Exercises Supine Exercises LTR Reps/Minutes x5 hold 5-10 sec Comments good feedback stretch SLR Supine Exercise Name HEP reviewed Reps/Minutes x10 Comments cued slow w/ TA awareness no higher than opp knee bridge Supine Exercise Name HEP review Resistance TB #3loop Reps/Minutes x10 Comments cued keep apart, good TA tolerant lift- painfree with good effort Sitting Exercises sit to stand Resistance red band around distal thighs Reps/Minutes 10x Standing Exercises resisted sidestepping Standing Exercise Name side stepping Resistance Tb #3 loop at ankles Equipment Used 1 UE on rail Reps/Minutes 2 lap each Comments cued tall posture, foot clearance and slow eccentric trailing LE, Gait Training Gait Activity On level Device Used None Surface Level Treatment Focus gluteal activation, dec lateral sway Comments mirror for visual feedback. Stairs Device Used 6-8 stairs Distance/Duration 10 stairs x 2 ascend/descend Comments one railing, emphasis on alignment, gluteal activation, alignment. Patient able to alternate LE's ascending, alternate descending step over step slow, cued feet //. Neuro Re-Education Treatment Balance Activities hurdles Details f/side stepping Surface firm Equipment rail PRN contact PT-OP-R Modalities Start: 10/07/21 16:10 Freq: Status: Active Protocol: Document 11/12/21 09:00 [facility] (Rec: 11/12/21 09:44 [facility] [id number]) Hot Pack/Cold Pack Treatment Hot Pack Comments patient declined. PT-OP-T Assessment and Plan Start: 10/07/21 16:10 Freq: Status: Active Protocol: Document 01/01/22 14:31 [facility] (Rec: 01/01/22 15:16 [facility] [id number]) Physical Therapy Assessment Goals 5 Impairment balance dysfunction Impairment Tinetti gait and balance score 16/28 indicating high risk for falls. Sanitation Associate Goal (LTG) Improve Tinetti score to at least 28 to decrease fall risk and improve confidence with mobility in the community . 11/27/21: Improved to LTG Duration 01/06/22 4 Impairment difficulty ambulating on stairs and curbs Nursing Home Goal (LTG) Patient able to ascend and descend stairs with one railing with alternating step pattern and be able to safely ascend and descend curb with least restrictive device 11/27/21: Able to ascend and descend 6 curb with CGA, ascend and descend 10 4 stairs with unilateral rail alternating steps to ascend and alternating 50% with descending mixed with step-to pattern LTG Duration 01/06/22 progressing 11/22/21 3 Impairment Patient unable to take usual walks due to back and right LE pain Nursing Home Goal (LTG) Patient able to take walks of 2-3 miles with minimal to no increase in pain 11/22/21: progressing: pt stated last Thursday walked about 2 miles and just tired. The pain down R lateral leg basically gone now. 11/27/21: 10,000 steps yesterday, good progress 12/25/21: progressing 1.5 miles level surfaces and over the 6, 000 step of personal goal. LTG Duration 01/06/22 progressin12/25/21 2 Impairment pain LB and right lateral LE and knee 6/10 on pain scale Sanitation Associate Goal (LTG) Decrease pain to no greater than 2/10 with all usual activiites. 11/22/21: Pt stated after walk on Thursday: pain hurts but not unbearable 4/10. Heat/ stretching pain goes away. 11/27/21: good goal progress 12/25/21: progressing: states leg pain gone but LBP could be better getting up in am worst 4/10 and takes ibuprofen to help 2-3/10 LBP on arrival. LTG Duration 01/06/22 progressin12/25/21 1 Impairment activity intolerance related to LBP and right LE pain Impairment Oswestry disability index score 34% (lower number indicates less disability) LEFS 35% (higher number indicates improved function) Nursing Home Goal (LTG) Decrease JOSE score to no greater than 15% as measure decreased disability and improved function 11/27/21: JOSE decreased Improve LEFS score to at least 70% as measure of improved function and activity tolerance LTG Duration 01/06/22 Assessment Summary Assessment Patient progressing with tolerance for walking, improved balance and safety with gait. Still unable to lower with good eccentric control descending stairs. Added band to distal thighs with sit to stand for increased lateral hip functional strengthening. Should be ready for discharge after 2 further visits. Physical Therapy Plan Frequency and Duration Frequency of Treatment 2x/Week Duration of Treatment 12 weeks Plan of Care Start Date 10/08/21 Plan of Care End Date 01/06/22 Therapeutic Interventions Therapeutic Interventions Aquatic Therapy,Gait Training, Home Exercise Program,Manual Therapy,Neuromuscular Re- education,Patient/Caregiver Education,Self-Care/Home Management,Soft Tissue Mobilization,Taping, Therapeutic Activities, Therapeutic Exercises Modalities Cold Pack/Ice Massage,Electric Stimulation,Hot Packs, Infrared Therapy,Ultrasound Next Visit Focus/Plan Next Note Type Treatment Note Next Visit Plan 2 more PT visits then anticipate discharge. Continue to progress functional strengthening and ROM. Patient to bring in written HEP for review and modification as needed.
--- NOTE | 2022-01-08 16:13 | PT.OTN ---
Current Diagnoses Radiculopathy, lumbar region (01/08/22) Iliotibial band syndrome, right leg (01/08/22) Presence of right artificial knee joint (01/08/22) Physical Therapy Treatment Note PT-OP-A Visit Information Start: 10/07/21 16:10 Freq: Status: Active Protocol: Document 01/08/22 15:17 SAK (Rec: 01/08/22 16:13 [facility]AK [id number]) Out-Patient Physical Therapy Visit Information Visit Information Visit Type Treatment Note Visit Start Time 15:17 Visit Stop Time 16:02 Total Visit Minutes 45 Visit Number 14 Number of URGENT CARE TECHNICIAN Visits 0 Evaluation Information Evaluation Date 10/08/21 PT-OP-B Current Condition Start: 10/07/21 16:10 Freq: Status: Active Protocol: Document 10/08/21 10:31 SAK (Rec: 10/08/21 12:07 SAK [id number]) Current Condition History of Current Condition Onset Date 1 year Current Complaints right lateral thigh and LBP History of Current Condition Denies fall, gradual onset worsening LBP and lateral hip pain since having righ TKA 1 1 /2 years ago. Very limited in ability to take walks which she loves to do, increase in leg and back pain, unable to walk her usual 2-3 miles, has to stop at 1 - 1/4 miles. Has to use cane for balance and confidence. Doesn't stretch, uses some ice, no heat. Rare N/T, no giving way. Back and leg worse in am, and when unloading groceries. No regular exercise routine except walking. Previously has done some HEP from prior PT's. Also expresses a fear of stairs which sometimes even keeps her from going places, needs to have a railing and avoids curbs. Prior Treatments and Tests prior TKA 1 1/2 yrs ago. Recent x-ray of knee looked good per Dr. Liu. x-ray and MRI of spine: patient reports DDD, stenosis, arthritis Treatment Goals Patient/Caregiver Goals Would like to be able to walk more, be more confident with gait on stairs and curbs Prior Functional Status Baseline Function- ADL's Independent Baseline Function- Mobility Independent Baseline Function- Gait able to ambulate without cane 2 miles Current Functional Impairments (Reported) Functional Limitations- ADL's painful Functional Limitations- Mobility/Gait painful Functional Limitations- Recreation/ limited walking due to pain in Hobbies LB and right LE PT-OP-C Subjective Start: 10/07/21 16:10 Freq: Status: Active Protocol: Document 01/08/22 15:17 SAK (Rec: 01/08/22 16:13 [facility] [id number]) OP-PT Subjective Patient Comments Patient Comments States was rolling over in bed over the weekend and felt popping and crackling in several places in her back and it has been feeling better since. Does subset of HEP every day. Walked 1 1/4 mile today using cane for stability and to allow her to walk fast enough to get her heart rate up a little. Feels comfortable with next PT visit being last. Will bring final questions. PT-OP-D Balance Start: 10/07/21 16:10 Freq: Status: Active Protocol: Document 10/08/21 10:31 SAK (Rec: 10/08/21 12:07 [facility] [id number]) OP-PT Balance Assessment Sitting Balance Static Sitting Balance Ability Normal Dynamic Sitting Balance Ability Normal Standing Balance Static Standing Balance Ability Fair Dynamic Standing Balance Ability Poor Balance Tests Single Limb Standing Single Limb- Right 0 Single Limb- Left 2 Tinetti Balance Assessment Sitting Balance Sitting Balance Steady, safe Arising from Chair Ability to Arise Able, uses arms to help Attempts to Arise Arises on 1st attempt Standing Balance Immediate Standing Balance Steady with support Standing Balance Steady, wide stance Nudged Response Staggers, catches self Standing with Eyes Closed Unsteady Turning Step Pattern Turning 360 Degrees Continuous steps Stability Turning 360 Degrees Unsteady, grabs/staggers Sitting Down Sitting Down Uses arms or unsteady Gait and Step Initiation of Gait No hesitancy Right Foot Step Length Does pass stance foot Right Foot Step Height Does not clear floor Left Foot Step Length Does pass stance foot Left Foot Step Height Does not clear floor Step Description Step Symmetry Step length not equal Step Continuity Steps appear continuous Gait Description Path Description Mild/moderate deviation Trunk Description No sway but posturing Walking Stance Heels together Scoring and Interpretation Tinetti Composite Score (points) 16 Interpretation of Scores High risk for falls(< 19) Weaver Fall Scale Copyright Permission PT-OP-G Mobility & Gait Start: 10/07/21 16:10 Freq: Status: Active Protocol: Document 10/08/21 10:31 SAK (Rec: 10/08/21 12:07 [facility] [id number]) OP Gait Assessment Gait Gait Assistance Required: Independent Assistive Devices Assistive Device Straight Cane Gait Deviations General Gait Pattern Antalgic,Decreased Stride Length,Flexed Trunk Stair Climbing Evaluation Evaluation Level of Assist On Stairs Standby Assistance Devices Stair Climbing Assistive Devices Left Railing,Right Railing Technique/Endurance Stair Climbing Direction Descend Stair Climbing Technique Step Over Step Number of Steps Climbed 4 Comments Stair Climbing Comments 4 stairs and bilateral railing use. PT-OP-K Range of Motion Start: 10/07/21 16:10 Freq: Status: Active Protocol: Document 10/08/21 10:31 [facility] (Rec: 10/08/21 12:07 [facility] [id number]) Lumbar Spine Range of Motion Lumbar Spine Active Testing Position Standing Flexion 40 Extension 10 Rotation Left 35 Rotation Right 35 Lateral Flexion Left 20 Lateral Flexion Right 30 ROM Limitations Soft Tissue Tightness,Pain Comments pain when returning from forward flexion Hip Goniometric Range of Motion Hip Left Hip ROM WFL No Testing Position Supine Flexion w/Knee Flexed 110 Straight Leg Raise 60 Internal Rotation 15 External Rotation 50 Right Hip ROM WFL No Testing Position Supine Flexion w/Knee Flexed 110 Straight Leg Raise 65 Extension 0 Internal Rotation 45 External Rotation 25 Hip ROM Limitations Hip ROM Limitations Soft Tissue Tightness,Pain Ankle and Foot Goniometric Range of Motion Ankle and Foot Right Ankle/Foot ROM WFL No Comments mod tightness right gastroc Left Ankle/Foot ROM WFL Yes Ankle and Foot ROM Limitations ROM Limitations Soft Tissue Tightness PT-OP-L Special Tests Start: 10/07/21 16:10 Freq: Status: Active Protocol: Document 10/08/21 10:31 [facility] (Rec: 10/08/21 12:07 [facility] [id number]) Special Tests Lumbar Spine Special Tests Straight Leg Raise Test Results negative Hip Special Tests will Test Results positive right Piriformis Test Results positive right SANCHEZ Test Results negative Scour Test Test Results negative PT-OP-M Strength Start: 10/07/21 16:10 Freq: Status: Active Protocol: Document 10/08/21 10:31 [facility] (Rec: 10/08/21 12:07 [facility] [id number]) Trunk Strength Trunk Manual Muscle Testing Flexion 4- Good- Extension 4- Good- Hip Strength Hip Manual Muscle Testing Right Flexion (L2) 4 Good Extension (S1) 3+ Fair+ Abduction 4- Good- Adduction 4- Good- External Rotation 4- Good- Internal Rotation 4- Good- Left Flexion (L2) 4 Good Extension (S1) 3+ Fair+ Abduction 4- Good- Adduction 4 Good External Rotation 4- Good- Internal Rotation 4- Good- Knee Strength Knee Manual Muscle Testing Right Flexion (S2) 4 Good Extension (L3) 4 Good Comments pain lateral knee and patellar region with extension Left Flexion (S2) 4+ Good+ Extension (L3) 4+ Good+ Ankle/Foot Strength Ankle and Foot Manual Muscle Testing Right Dorsiflexion (L4) 4 Good Plantarflexion (S1) 4 Good Left Dorsiflexion (L4) 4+ Good+ Inversion 4+ Good+ PT-OP-Q Treatments Start: 10/07/21 16:10 Freq: Status: Active Protocol: Document 01/08/22 15:17 [facility] (Rec: 01/08/22 16:13 [facility] [id number]) Cardio Equipment Recumbent Stepper (Sci-Fit) Duration (Minutes) 10 Resistance 2.0 Seat Position 12 Other LE's only 1.27 miles. Therapeutic Exercises Supine Exercises pec stretch Reps/Minutes 1 min passive SLR Supine Exercise Name HEP reviewed Reps/Minutes x10 Comments cued slow w/ TA awareness no higher than opp knee bridge Supine Exercise Name HEP review Resistance TB #3loop Reps/Minutes x10 Comments cued keep apart, good TA tolerant lift- painfree with good effort Sidelying Exercises open book Reps/Minutes 5x Comments moderate cues hip abduction Sidelying Exercise Name x5 reps, states challenging maintain position and doesn't feel will continu Reps/Minutes 5x Comments cued stack onside and more hip ext w/ lift Gait Training Gait Activity On level Device Used None Surface Level Treatment Focus gluteal activation, dec lateral sway, upright posture Comments mirror for visual feedback, beanbag on head PT-OP-R Modalities Start: 10/07/21 16:10 Freq: Status: Active Protocol: Document 11/12/21 09:00 [facility] (Rec: 11/12/21 09:44 [facility] [id number]) Hot Pack/Cold Pack Treatment Hot Pack Comments patient declined. PT-OP-T Assessment and Plan Start: 10/07/21 16:10 Freq: Status: Active Protocol: Document 01/08/22 15:17 [facility] (Rec: 01/08/22 16:13 [facility] [id number]) Physical Therapy Assessment Goals 5 Impairment balance dysfunction Impairment Tinetti gait and balance score 16/28 indicating high risk for falls. Digital Associate Media Director Goal (LTG) Improve Tinetti score to at least 22/28 to decrease fall risk and improve confidence with mobility in the community . 11/27/21: Improved to 01/01/22: Improved to LTG Duration 01/31/22 4 Impairment difficulty ambulating on stairs and curbs Detention Goal (LTG) Patient able to ascend and descend stairs with one railing with alternating step pattern and be able to safely ascend and descend curb with least restrictive device 11/27/21: Able to ascend and descend 6 curb with CGA, ascend and descend 10 4 stairs with unilateral rail alternating steps to ascend and alternating 50% with descending mixed with step-to pattern 11/22/21: progressing, difficulty with descending 01/01/22: improved but still difficulty with eccentric control with descend, though able to descend 75% with alternating pattern. LTG Duration 01/31/22 3 Impairment Patient unable to take usual walks due to back and right LE pain Detention Goal (LTG) Patient able to take walks of 2-3 miles with minimal to no increase in pain 11/22/21: progressing: pt stated last Thursday walked about 2 miles and just tired. The pain down R lateral leg basically gone now. 11/27/21: 10,000 steps yesterday, good progress 12/25/21: progressing 1.5 miles level surfaces and over the 6, 000 step of personal goal. LTG Duration 01/31/22 2 Impairment pain LB and right lateral LE and knee 6/10 on pain scale Digital Associate Media Director Goal (LTG) Decrease pain to no greater than 2/10 with all usual activiites. 11/22/21: Pt stated after walk on Thursday: pain hurts but not unbearable /. Heat/ stretching pain goes away. 11/27/21: good goal progress 12/25/21: progressing: states leg pain gone but LBP could be better getting up in am worst 4/10 and takes ibuprofen to help 2-3/10 LBP on arrival. 01/01/22: improving with PT, still difficult to get myself to stand straight LTG Duration 01/31/22 1 Impairment activity intolerance related to LBP and right LE pain Impairment Oswestry disability index score 34% (lower number indicates less disability) LEFS 35% (higher number indicates improved function) Detention Goal (LTG) Decrease JOSE score to no greater than 15% as measure decreased disability and improved function 11/27/21: JOSE decreased Improve LEFS score to at least 70% as measure of improved function and activity tolerance 01/01/22: goal progress LTG Duration 01/31/22 Assessment Summary Assessment Patient needs moderate cues for correct alignment an performance of sidelying hip abduction. Added row and shoulder extension with L2 TB to HEP, emphasis on core stabilization and postural correction. Patient has not been doing LTR so reviewed safe, gentle performance. Patient doesn't feel safe doing resisted sidebending at home with theraband; removed from HEP. Physical Therapy Plan Frequency and Duration Frequency of Treatment 1x/Week Duration of Treatment 4 wks Plan of Care Start Date 01/01/22 Plan of Care End Date 01/31/22 Therapeutic Interventions Therapeutic Interventions Aquatic Therapy,Gait Training, Home Exercise Program,Manual Therapy,Neuromuscular Re- education,Patient/Caregiver Education,Self-Care/Home Management,Soft Tissue Mobilization,Taping, Therapeutic Activities, Therapeutic Exercises Modalities Cold Pack/Ice Massage,Electric Stimulation,Hot Packs, Infrared Therapy,Ultrasound Next Visit Focus/Plan Next Note Type Treatment Note Next Visit Plan 1 more PT visit. REview UE theraband exercises, sidelying hip abduction, assess gait on stairs and Liomn balance assessment. Have patient fill out LEFS and Oswestry, pain grid for final assessment.
--- NOTE | 2022-01-15 15:11 | PT.OTN ---
Current Diagnoses Radiculopathy, lumbar region (01/15/22) Iliotibial band syndrome, right leg (01/15/22) Presence of right artificial knee joint (01/15/22) Physical Therapy Treatment Note PT-OP-A Visit Information Start: 10/07/21 16:10 Freq: Status: Active Protocol: Document 01/15/22 14:33 SAK (Rec: 01/15/22 15:11 SAK [id number]) Out-Patient Physical Therapy Visit Information Visit Information Visit Type Treatment Note Visit Start Time 14:33 Visit Stop Time 15:08 Total Visit Minutes 35 Visit Number 15 Number of WINDSURFING INSTRUCTOR Visits 0 Evaluation Information Evaluation Date 10/08/21 PT-OP-B Current Condition Start: 10/07/21 16:10 Freq: Status: Active Protocol: Document 10/08/21 10:31 SAK (Rec: 10/08/21 12:07 SAK [id number]) Current Condition History of Current Condition Onset Date 1 year Current Complaints right lateral thigh and LBP History of Current Condition Denies fall, gradual onset worsening LBP and lateral hip pain since having righ TKA 1 1 /2 years ago. Very limited in ability to take walks which she loves to do, increase in leg and back pain, unable to walk her usual 2-3 miles, has to stop at 1 - 1/4 miles. Has to use cane for balance and confidence. Doesn't stretch, uses some ice, no heat. Rare N/T, no giving way. Back and leg worse in am, and when unloading groceries. No regular exercise routine except walking. Previously has done some HEP from prior PT's. Also expresses a fear of stairs which sometimes even keeps her from going places, needs to have a railing and avoids curbs. Prior Treatments and Tests prior TKA 1 1/2 yrs ago. Recent x-ray of knee looked good per Dr. Liu. x-ray and MRI of spine: patient reports DDD, stenosis, arthritis Treatment Goals Patient/Caregiver Goals Would like to be able to walk more, be more confident with gait on stairs and curbs Prior Functional Status Baseline Function- ADL's Independent Baseline Function- Mobility Independent Baseline Function- Gait able to ambulate without cane 2 miles Current Functional Impairments (Reported) Functional Limitations- ADL's painful Functional Limitations- Mobility/Gait painful Functional Limitations- Recreation/ limited walking due to pain in Hobbies LB and right LE PT-OP-C Subjective Start: 10/07/21 16:10 Freq: Status: Active Protocol: Document 01/15/22 14:33 SAK (Rec: 01/15/22 15:11 [facility] [id number]) OP-PT Subjective Patient Comments Patient Comments back pain worse in the am, mostly left side. Reports at least 50% better in low back, IT band pain is gone. States she keeps trying to correct her posture but it is a lifetime of bad habit. PT-OP-D Balance Start: 10/07/21 16:10 Freq: Status: Active Protocol: Document 10/08/21 10:31 SAK (Rec: 10/08/21 12:07 [facility] [id number]) OP-PT Balance Assessment Sitting Balance Static Sitting Balance Ability Normal Dynamic Sitting Balance Ability Normal Standing Balance Static Standing Balance Ability Fair Dynamic Standing Balance Ability Poor Balance Tests Single Limb Standing Single Limb- Right 0 Single Limb- Left 2 Tinetti Balance Assessment Sitting Balance Sitting Balance Steady, safe Arising from Chair Ability to Arise Able, uses arms to help Attempts to Arise Arises on 1st attempt Standing Balance Immediate Standing Balance Steady with support Standing Balance Steady, wide stance Nudged Response Staggers, catches self Standing with Eyes Closed Unsteady Turning Step Pattern Turning 360 Degrees Continuous steps Stability Turning 360 Degrees Unsteady, grabs/staggers Sitting Down Sitting Down Uses arms or unsteady Gait and Step Initiation of Gait No hesitancy Right Foot Step Length Does pass stance foot Right Foot Step Height Does not clear floor Left Foot Step Length Does pass stance foot Left Foot Step Height Does not clear floor Step Description Step Symmetry Step length not equal Step Continuity Steps appear continuous Gait Description Path Description Mild/moderate deviation Trunk Description No sway but posturing Walking Stance Heels together Scoring and Interpretation Tinetti Composite Score (points) 16 Interpretation of Scores High risk for falls(< 19) Weaver Fall Scale Copyright Permission PT-OP-G Mobility & Gait Start: 10/07/21 16:10 Freq: Status: Active Protocol: Document 10/08/21 10:31 SAK (Rec: 10/08/21 12:07 [facility] [id number]) OP Gait Assessment Gait Gait Assistance Required: Independent Assistive Devices Assistive Device Straight Cane Gait Deviations General Gait Pattern Antalgic,Decreased Stride Length,Flexed Trunk Stair Climbing Evaluation Evaluation Level of Assist On Stairs Standby Assistance Devices Stair Climbing Assistive Devices Left Railing,Right Railing Technique/Endurance Stair Climbing Direction Descend Stair Climbing Technique Step Over Step Number of Steps Climbed 4 Comments Stair Climbing Comments 4 stairs and bilateral railing use. PT-OP-K Range of Motion Start: 10/07/21 16:10 Freq: Status: Active Protocol: Document 10/08/21 10:31 [facility] (Rec: 10/08/21 12:07 [facility] [id number]) Lumbar Spine Range of Motion Lumbar Spine Active Testing Position Standing Flexion 40 Extension 10 Rotation Left 35 Rotation Right 35 Lateral Flexion Left 20 Lateral Flexion Right 30 ROM Limitations Soft Tissue Tightness,Pain Comments pain when returning from forward flexion Hip Goniometric Range of Motion Hip Left Hip ROM WFL No Testing Position Supine Flexion w/Knee Flexed 110 Straight Leg Raise 60 Internal Rotation 15 External Rotation 50 Right Hip ROM WFL No Testing Position Supine Flexion w/Knee Flexed 110 Straight Leg Raise 65 Extension 0 Internal Rotation 45 External Rotation 25 Hip ROM Limitations Hip ROM Limitations Soft Tissue Tightness,Pain Ankle and Foot Goniometric Range of Motion Ankle and Foot Right Ankle/Foot ROM WFL No Comments mod tightness right gastroc Left Ankle/Foot ROM WFL Yes Ankle and Foot ROM Limitations ROM Limitations Soft Tissue Tightness PT-OP-L Special Tests Start: 10/07/21 16:10 Freq: Status: Active Protocol: Document 10/08/21 10:31 [facility] (Rec: 10/08/21 12:07 [facility] [id number]) Special Tests Lumbar Spine Special Tests Straight Leg Raise Test Results negative Hip Special Tests will Test Results positive right Piriformis Test Results positive right SANCHEZ Test Results negative Scour Test Test Results negative PT-OP-M Strength Start: 10/07/21 16:10 Freq: Status: Active Protocol: Document 10/08/21 10:31 [facility] (Rec: 10/08/21 12:07 [facility] [id number]) Trunk Strength Trunk Manual Muscle Testing Flexion 4- Good- Extension 4- Good- Hip Strength Hip Manual Muscle Testing Right Flexion (L2) 4 Good Extension (S1) 3+ Fair+ Abduction 4- Good- Adduction 4- Good- External Rotation 4- Good- Internal Rotation 4- Good- Left Flexion (L2) 4 Good Extension (S1) 3+ Fair+ Abduction 4- Good- Adduction 4 Good External Rotation 4- Good- Internal Rotation 4- Good- Knee Strength Knee Manual Muscle Testing Right Flexion (S2) 4 Good Extension (L3) 4 Good Comments pain lateral knee and patellar region with extension Left Flexion (S2) 4+ Good+ Extension (L3) 4+ Good+ Ankle/Foot Strength Ankle and Foot Manual Muscle Testing Right Dorsiflexion (L4) 4 Good Plantarflexion (S1) 4 Good Left Dorsiflexion (L4) 4+ Good+ Inversion 4+ Good+ PT-OP-Q Treatments Start: 10/07/21 16:10 Freq: Status: Active Protocol: Document 01/15/22 14:33 [facility] (Rec: 01/15/22 15:11 [facility] [id number]) Cardio Equipment Recumbent Stepper (Sci-Fit) Duration (Minutes) 10 Resistance 2.0 Seat Position 12 Other LE's only 1.27 miles. Therapeutic Exercises Sidelying Exercises open book Reps/Minutes 5x Comments moderate cues hip abduction Equipment Used wall Reps/Minutes 5x Comments cued stack onside and more hip ext w/ lift Standing Exercises row, shld ext Resistance L1 TB Reps/Minutes 10x PT-OP-R Modalities Start: 10/07/21 16:10 Freq: Status: Active Protocol: Document 11/12/21 09:00 [facility] (Rec: 11/12/21 09:44 [facility] [id number]) Hot Pack/Cold Pack Treatment Hot Pack Comments patient declined. PT-OP-T Assessment and Plan Start: 10/07/21 16:10 Freq: Status: Active Protocol: Document 01/15/22 14:33 [facility] (Rec: 01/15/22 15:11 [facility] [id number]) Physical Therapy Assessment Goals 5 Impairment balance dysfunction Impairment Tinetti gait and balance score 16/28 indicating high risk for falls. Soft Boarder Goal (LTG) Improve Tinetti score to at least 22/28 to decrease fall risk and improve confidence with mobility in the community . 11/27/21: Improved to 01/01/22: Improved to LTG Duration 01/31/22 4 Impairment difficulty ambulating on stairs and curbs Mcc Goal (LTG) Patient able to ascend and descend stairs with one railing with alternating step pattern and be able to safely ascend and descend curb with least restrictive device 11/27/21: Able to ascend and descend 6 curb with CGA, ascend and descend 10 4 stairs with unilateral rail alternating steps to ascend and alternating 50% with descending mixed with step-to pattern 11/22/21: progressing, difficulty with descending 01/01/22: improved but still difficulty with eccentric control with descend, though able to descend 75% with alternating pattern. 01/15/22: still a problem; feels very unstable LTG Duration 01/31/22 3 Impairment Patient unable to take usual walks due to back and right LE pain Soft Boarder Goal (LTG) Patient able to take walks of 2-3 miles with minimal to no increase in pain 11/22/21: progressing: pt stated last Thursday walked about 2 miles and just tired. The pain down R lateral leg basically gone now. 11/27/21: 10,000 steps yesterday, good progress 12/25/21: progressing 1.5 miles level surfaces and over the 6, 000 step of personal goal. 01/15/22: as far as almost 2 miles recently, continues to progress LTG Duration 01/31/22 2 Impairment pain LB and right lateral LE and knee /10 on pain scale Soft Boarder Goal (LTG) Decrease pain to no greater than 2/10 with all usual activiites. 11/22/21: Pt stated after walk on Thursday: pain hurts but not unbearable /10. Heat/ stretching pain goes away. 11/27/21: good goal progress 12/25/21: progressing: states leg pain gone but LBP could be better getting up in am worst 4/10 and takes ibuprofen to help 2-3/10 LBP on arrival. 01/01/22: improving with PT, still difficult to get myself to stand straight LTG Duration 01/31/22 1 Impairment activity intolerance related to LBP and right LE pain Impairment Oswestry disability index score 34% (lower number indicates less disability) LEFS 35% (higher number indicates improved function) Mcc Goal (LTG) Decrease JOSE score to no greater than 15% as measure decreased disability and improved function 11/27/21: JOSE decreased Improve LEFS score to at least 70% as measure of improved function and activity tolerance 01/01/22: goal progress LTG Duration 01/31/22 Assessment Summary Assessment Goals achieved for leg pain, more than 50% achieved for back pain per patient report. Patient is independent with HEP and should continue to improve with HEP, use of ice/ heat, walking program (has gradually increased walking to almost 2 miles). REady for discharge from PT. Physical Therapy Plan Discharge Physical Therapy Discharge Reasons Plateau in Progress Discharge Comments goals met for leg pain, more than 50% met for back pain.
== END 2022-01-22 11:52 ==
LOC: PHYS 14:30
PROVIDERS: Family Provider Physician Assistant; PCP Physician Assistant; Referring Provider Orthopaedic Surgery; Visit Provider Orthopaedic Surgery
DX: M76.31 Iliotibial band syndrome, right leg (principal); M54.16 Radiculopathy, lumbar region; Z96.651 Presence of right artificial knee joint
CPT/HCPCS: 97110; 97112; 97116; 97162; 97535

== ENCOUNTER → 2023-01-10 19:09 | Outpatient (CLI) | payer MEDICARE, SELFPAY ==
[2020-04-04 14:14] VITALS: BMI 28.3
== END ==
PROVIDERS: Family Provider Physician Assistant; PCP Physician Assistant; Visit Provider Nurse Practitioner Family
DX: R10.9 Unspecified abdominal pain (principal); R68.83 Chills (without fever)
CPT/HCPCS: 87086

== ENCOUNTER 2023-01-10 19:14 | Emergency (ER) | payer MEDICARE, SELFPAY ==
[2020-04-04 14:14] VITALS: BMI 28.3
[2023-01-10] VITALS (11 sets, daily range): BP systolic 127–157; BP diastolic 58–95; PULSE 104–112; RESP 12–27; TEMP 36.6; O2SAT 92–98; BMI 25.8
--- NOTE | 2023-01-10 19:23 | DI.RAD.S_ITS ---
PROCEDURE: XR CHEST 1V INDICATIONS: suspected sepsis TECHNIQUE: One view of the chest was acquired. COMPARISON: None. FINDINGS: Surgical changes and devices: None. Lungs and pleura: Lungs are clear. No pleural effusions or pneumothorax. Mediastinum: Mediastinal contours appear normal. Heart size is normal. Bones and chest wall: No suspicious bony lesions. Overlying soft tissues appear unremarkable. IMPRESSION: No acute cardiopulmonary findings Approved by: Red Bailey M.D. on 01/10/2023 at 19:15
[2023-01-10] MEDS: ONDANSETRON 4 MG/2 ML INJ IV (19:48)
[2023-01-10] MEDS: SODIUM CHLORIDE 0.9% 1,000 ML 1000 ML IV ×2 (19:50→22:01)
[2023-01-10 20:01] LABS: Basophils Absolute Auto 0 /uL (0-100); Basophils Percent Auto 0.5 % (0-2); Eosinophils Absolute Auto 0 /uL (0-450); Eosinophils Percent Auto 1.3 % (2-4); Hematocrit 41.9 % (36-46); Hemoglobin 14.3 g/dL (12.0-16.0); Lymphocytes Absolute Auto 600 /uL (1100-4500); Lymphocytes Percent Auto 20.3 % (25-40); Mean Corpuscular HGB Conc 34.2 % (30-36); Mean Corpuscular Volume 93.5 fL (80-100); Monocytes Absolute Auto 0 /uL (0-900); Monocytes Percent Auto 0.5 % (3-14); Neutrophils Absolute Auto 2100 /uL (1500-7000); Neutrophils Percent Auto 77.4 % (50-75); Red Blood Cell Count 4.48 X10^6/uL (4.0-5.2); Red Cell Distribution Width 13.4 % (11.6-14.8); White Blood Cell Count 2.7 X10^3/uL (4.5-11.0)
[2023-01-10 20:03] LABS: Prothrombin Time 11.1 SECONDS (10.1-12.7)
[2023-01-10 20:04] LABS: Add Manual Diff / Slide Review SLIDE REVIEW
[2023-01-10 20:06] LABS: PTT Partial Thromboplastin Tim 22 SECONDS (26-36)
[2023-01-10 20:08] LABS: Alanine Aminotransferase 25 IU/L (<35); Albumin 4.1 g/dL (3.5-5.0); Albumin Globulin Ratio 1.2 (1.0-2.8); Alkaline Phosphatase 81 U/L (38-126); Aspartate Aminotransferase 28 IU/L (14-36); BUN Creatinine Ratio 20.2 (6-22); Bilirubin Total 2.2 mg/dL (0.2-1.3); Blood Urea Nitrogen 20 mg/dL (7-17); Carbon Dioxide 23 mmol/L (22-32); Chloride 106 mmol/L (98-107); Estimated Glomerular Filt Rate 58 mL/min (>60); Globulin 3.5 g/dL (1.7-4.1); Glucose 109 mg/dL (80-110); HEMOLYSIS < 15 (0-50); Lactate (Lactic Acid) 1.6 mmol/L (0.7-2.1); Lipase 197 U/L (23-300); Potassium 3.6 mmol/L (3.4-5.1); Sodium 138 mmol/L (137-145); Total Protein 7.6 g/dL (6.3-8.2)
[2023-01-10 20:14] LABS: RBC Morphology Normal Morphology
[2023-01-10 20:24] LABS: Procalcitonin 0.18 ng/mL (<0.5)
--- NOTE | 2023-01-10 22:34 | ED.ABDPAIN ---
HPI - Abdominal Pain General Chief Complaint: Abdominal Pain Stated Complaint: sent by [facility]/ lower ABD pain, shaking Time Seen by Provider: 01/10/23 22:21 Source: patient Mode of arrival: Wheelchair History of Present Illness HPI narrative: Patient is a 82-year-old female history of hypothyroid hyperlipidemia presenting today with shaking and suprapubic pain. He reports that she is been tired today not early feeling very good. However she started shaking uncontrollably and could not get warm. She is having some mild suprapubic pain well. Denies any painful frequent urination. She is chronic ongoing back pain which isn't any worse denies any flank pain. No other abdominal pain no nausea or vomiting. She denies any chest pain shortness of breath. She is noted to be tachycardic and O2 92-93% on room air Related Data Home Medications Medication Instructions Recorded Confirmed atorvastatin 40 mg tablet 40 mg PO DAILY 03/28/20 01/10/23 levothyroxine 100 mcg tablet 100 mcg PO DAILY 03/28/20 01/10/23 vit C 250 mg-vit E 90 mg-zinc 40 1 tab PO BID 03/28/20 01/10/23 mg-copper 1 [id number] capsule (PreserVision AREDS-2) Previous Rx's Medication Instructions Recorded aspirin 81 mg tablet,delayed 81 mg PO BID #20 tabs 04/05/20 release docusate sodium 100 mg capsule 100 mg PO BID #20 caps 04/05/20 (DOK) ibuprofen 400 mg tablet 400 mg PO Q4HR #20 tabs 04/05/20 tramadol 50 mg tablet 50 mg PO QID PRN Pain, Moderate 04/05/20 (4-6) #30 tabs ciprofloxacin HCl 500 mg tablet 500 mg PO BID #10 tabs 01/11/23 (Cipro) Allergies Allergy/AdvReac Type Severity Reaction Status Date / Time penicillin G [PENICILLIN G] Allergy Intermediate Swelling Verified 01/10/23 19:04 at injection Sulfa (Sulfonamide Allergy Intermediate Childhood Verified 01/10/23 19:04 Antibiotics) I almost [SULFA (SULFONAMIDE ANTIBIOTICS)] codeine AdvReac Severe Nausea, Verified 01/10/23 19:04 vomiting Review of Systems Review of Systems ROS Unobtainable: All systems reviewed & are unremarkable except as noted in HPI and below Patient History Medical History Chronic low back pain DDD (degenerative disc disease) Hearing loss Heartburn HLD (hyperlipidemia) Hypothyroid Macular degeneration of both eyes Osteoarthritis Seasonal allergies Surgical History History of colonoscopy History of surgery on arm Hx of bilateral cataract extraction (~2012) Hx of hemorrhoidectomy (~1976) Hx of knee surgery (~1959) S/P epidural steroid injection Social History household members: none Smoking Status: Former smoker alcohol intake: current Smoking Status: Former smoker alcohol intake frequency: 0-2 drinks per day Substance Use Type: does not use Exam Initial Vital Signs Initial Vital Signs: Vital Signs Temperature 97.9 F 01/10/23 19:18 Pulse Rate 105 H 01/10/23 19:18 Respiratory Rate 21 01/10/23 19:18 Blood Pressure 157/77 H 01/10/23 19:18 Pulse Oximetry 98 01/10/23 19:18 Oxygen Delivery Method Room Air 01/10/23 19:18 GENERAL: Patient is a 82-year-old female appears well and nontoxic HEENT: Head atraumatic,EOMI, pupils reactive, face symmetric, [moist] mucous membranes CARDIOVASCULAR: Regular rate and rhythm without murmurs, rubs or gallops. RESPIRATORY: Breath sounds equal bilaterally, no wheezes rales or rhonchi. ABDOMEN: Soft, nontender. N mild suprapubic pain no guarding no rebound no distention EXTREMITIES: Normal range of motion, no clubbing or edema. Neurovascularly intact NEUROLOGICAL: Alert and oriented x4.Normal gait and speech. Cranial nerves II through XII grossly intact. SKIN: Warm, dry, no laceration, no petechiae, no rashes or lesions. Course Orders Ordered: ED Orders 01/10/23 22:47 Blood Culture Stat 01/10/23 23:26 UA Complete [Urinalysis and Microscopic] Stat Urine Culture Stat 01/11/23 00:00 Respiratory Panel (Film Array) Stat Discontinued Medications Sodium Chloride (Normal Saline 0.9%) 1,000 mls @ 1,000 mls/hr IV BOLUS ONE Stop: 01/10/23 20:22 Last Infusion: 01/10/23 21:56 Dose: 0 mls/hr Documented By: Admin: 01/10/23 19:50 Dose: 1,000 mls/hr Documented By: TORI Sodium Chloride (Normal Saline 0.9%) 1,000 mls @ 1,000 mls/hr IV BOLUS ONE Stop: 01/10/23 22:54 Last Infusion: 01/11/23 00:27 Dose: 0 mls/hr Documented By: Admin: 01/10/23 22:01 Dose: 1,000 mls/hr Documented By: MANNY Ceftriaxone Sodium 1,000 mg/ (Sodium Chloride) 100 mls @ 200 mls/hr IV NOW ONE Stop: 01/11/23 01:29 Last Infusion: 01/11/23 02:38 Dose: 0 mls/hr Documented By: Admin: 01/11/23 01:59 Dose: 200 mls/hr Documented By: TORI Ondansetron HCl (Ondansetron 4 Mg/2 Ml Inj) 4 mg IV NOW PRN PRN Reason: Nausea And Vomiting Last Admin: 01/10/23 19:48 Dose: 4 mg Documented By: TORI Ondansetron HCl (Ondansetron 4 Mg Odt) 4 mg SL NOW PRN PRN Reason: Nausea And Vomiting Ondansetron HCl (Ondansetron 4 Mg Odt) 4 mg SL NOW PRN PRN Reason: Nausea And Vomiting Vital Signs Vital signs: Vital Signs - 8 hr 01/10/23 23:27 01/10/23 23:27 01/10/23 23:30 Pulse Rate 110 H Respiratory Rate 12 Blood Pressure 156/73 H 140/60 Pulse Oximetry Oxygen Delivery Method 01/10/23 23:30 01/11/23 00:00 01/11/23 00:00 Pulse Rate 106 H 106 H Respiratory Rate 17 23 Blood Pressure 135/65 Pulse Oximetry 95 94 Oxygen Delivery Method Room Air Room Air 01/11/23 00:30 01/11/23 00:30 01/11/23 01:00 Pulse Rate 109 H Respiratory Rate 13 Blood Pressure 136/65 119/54 L Pulse Oximetry 93 Oxygen Delivery Method 01/11/23 01:00 01/11/23 01:30 01/11/23 02:00 Pulse Rate 110 H 107 H 109 H Respiratory Rate 23 19 19 Blood Pressure 109/51 L 109/55 L Pulse Oximetry 93 93 93 Oxygen Delivery Method Room Air Room Air Room Air MDM - Abdominal Pain Lab Data 01/10/23 19:45 01/10/23 19:45 Labs: Lab Results 01/10/23 01/10/23 01/10/23 Range/Units 19:45 19:45 19:45 WBC 2.7 L (4.5-11.0) X10^3/uL RBC 4.48 (4.0-5.2) X10^6/uL Hgb 14.3 (12.0-16.0) g/dL Hct 41.9 (36-46) % MCV 93.5 (80-100) fL MCH 32.0 (26-34) PG MCHC 34.2 (30-36) % RDW 13.4 (11.6-14.8) % Plt Count TNP Neut % (Auto) 77.4 H (50-75) % Lymph % (Auto) 20.3 L (25-40) % [place] % (Auto) 0.5 L (3-14) % Eos % (Auto) 1.3 L (2-4) % Baso % (Auto) 0.5 (0-2) % Neut # (Auto) 2100 (7275-4978) /uL Lymph # (Auto) 600 L (5583-1501) /uL [place] # (Auto) 0 (0-900) /uL Eos # (Auto) 0 (0-450) /uL Baso # (Auto) 0 (0-100) /uL Plt Morphology Comment RBC Morphology Normal morphology PT 11.1 (10.1-12.7) SECONDS INR 1.0 (0.9-1.3) APTT 22 L (26-36) SECONDS Sodium 138 (137-145) mmol/L Potassium 3.6 (3.4-5.1) mmol/L Chloride 106 (98-107) mmol/L Carbon Dioxide 23 (22-32) mmol/L BUN 20 H (7-17) mg/dL Creatinine 0.99 (0.52-1.04) mg/dL Estimated GFR 58 L (>60) mL/min BUN/Creatinine Ratio 20.2 (6-22) Glucose 109 (80-110) mg/dL Lactate (0.7-2.1) mmol/L Calcium 9.0 (8.4-10.2) mg/dL Total Bilirubin 2.2 H (0.2-1.3) mg/dL AST 28 (14-36) IU/L ALT 25 (<35) IU/L Alkaline Phosphatase 81 (38-126) U/L Total Protein 7.6 (6.3-8.2) g/dL Albumin 4.1 (3.5-5.0) g/dL Globulin 3.5 (1.7-4.1) g/dL Albumin/Globulin Ratio 1.2 (1.0-2.8) Lipase 197 (23-300) U/L Procalcitonin 0.18 (<0.5) ng/mL Urine Color Urine Appearance Urine pH (4.5-8.0) Ur Specific [place] (1.000-1.035) Urine Protein (Negative) Urine Glucose (UA) (Negative) g/dL Urine Ketones (NEGATIVE) Urine Occult Blood (Negative) Urine Nitrate (Negative) Urine Bilirubin (NEGATIVE) Urine Urobilinogen (0.2) E.U./dL Ur Leukocyte Esterase (NEGATIVE) Urine RBC (0-5/HPF) Urine WBC (0-5/HPF) Ur Squamous Epith Cells (0-5/HPF) Urine Bacteria (None) Ur Culture Indicated? Chlamy pneumoniae PCR (Not Detect) Adenovirus (PCR) (Not Detect) B. pertussis DNA (PCR) (Not Detecte) B.parapertussis DNA PCR (Not Detecte) Coronavirus OC43 (PCR) (Not Detect) Coronavirus HKU1 (PCR) (Not Detect) Coronavirus 229E (PCR) (Not Detect) SARS-CoV-2 (PCR) (Not Detecte) Coronavirus NL63 (PCR) (Not Detect) Human Metapneumovir PCR (Not Detect) Influenza Type A (PCR) (Not Detect) Influenza Type B (PCR) (Not Detect) M. pneumoniae (PCR) (Not Detect) Parainfluenza 1 (PCR) (Not Detect) Parainfluenza 2 (PCR) (Not Detect) Parainfluenza 3 (PCR) (Not Detect) Parainfluenza 4 (PCR) (Not Detect) RSV (PCR) (Not Detect) Entero/Rhino (PCR) (Not Detect) 01/10/23 01/10/23 01/11/23 Range/Units 19:45 23:26 00:00 WBC (4.5-11.0) X10^3/uL RBC (4.0-5.2) X10^6/uL Hgb (12.0-16.0) g/dL Hct (36-46) % MCV (80-100) fL MCH (26-34) PG MCHC (30-36) % RDW (11.6-14.8) % Plt Count Neut % (Auto) (50-75) % Lymph % (Auto) (25-40) % [place] % (Auto) (3-14) % Eos % (Auto) (2-4) % Baso % (Auto) (0-2) % Neut # (Auto) (5088-9737) /uL Lymph # (Auto) (0265-2975) /uL [place] # (Auto) (0-900) /uL Eos # (Auto) (0-450) /uL Baso # (Auto) (0-100) /uL Plt Morphology Comment RBC Morphology PT (10.1-12.7) SECONDS INR (0.9-1.3) APTT (26-36) SECONDS Sodium (137-145) mmol/L Potassium (3.4-5.1) mmol/L Chloride (98-107) mmol/L Carbon Dioxide (22-32) mmol/L BUN (7-17) mg/dL Creatinine (0.52-1.04) mg/dL Estimated GFR (>60) mL/min BUN/Creatinine Ratio (6-22) Glucose (80-110) mg/dL Lactate 1.6 (0.7-2.1) mmol/L Calcium (8.4-10.2) mg/dL Total Bilirubin (0.2-1.3) mg/dL AST (14-36) IU/L ALT (<35) IU/L Alkaline Phosphatase (38-126) U/L Total Protein (6.3-8.2) g/dL Albumin (3.5-5.0) g/dL Globulin (1.7-4.1) g/dL Albumin/Globulin Ratio (1.0-2.8) Lipase (23-300) U/L Procalcitonin (<0.5) ng/mL Urine Color Yellow Urine Appearance Clear Urine pH 5.5 (4.5-8.0) Ur Specific [place] 1.020 (1.000-1.035) Urine Protein Negative (Negative) Urine Glucose (UA) Negative (Negative) g/dL Urine Ketones 1+ H (NEGATIVE) Urine Occult Blood 1+ H (Negative) Urine Nitrate Negative (Negative) Urine Bilirubin Negative (NEGATIVE) Urine Urobilinogen 0.2 (0.2) E.U./dL Ur Leukocyte Esterase 1+ H (NEGATIVE) Urine RBC 1-5/hpf (0-5/HPF) Urine WBC 1-5/hpf (0-5/HPF) Ur Squamous Epith Cells 1-5 /hpf (0-5/HPF) Urine Bacteria Few (2-10) H (None) Ur Culture Indicated? Specimen cultured Chlamy pneumoniae PCR Not detected (Not Detect) Adenovirus (PCR) Not detected (Not Detect) B. pertussis DNA (PCR) Not detected (Not Detecte) B.parapertussis DNA PCR Not detected (Not Detecte) Coronavirus OC43 (PCR) Not detected (Not Detect) Coronavirus HKU1 (PCR) Not detected (Not Detect) Coronavirus 229E (PCR) Not detected (Not Detect) SARS-CoV-2 (PCR) Not detected (Not Detecte) Coronavirus NL63 (PCR) Not detected (Not Detect) Human Metapneumovir PCR Not detected (Not Detect) Influenza Type A (PCR) Not detected (Not Detect) Influenza Type B (PCR) Not detected (Not Detect) M. pneumoniae (PCR) Not detected (Not Detect) Parainfluenza 1 (PCR) Not detected (Not Detect) Parainfluenza 2 (PCR) Not detected (Not Detect) Parainfluenza 3 (PCR) Not detected (Not Detect) Parainfluenza 4 (PCR) Not detected (Not Detect) RSV (PCR) Not detected (Not Detect) Entero/Rhino (PCR) Not detected (Not Detect) Imaging Data Chest x-ray: Radiologist's Impression: PROCEDURE:? XR CHEST 1V ? INDICATIONS:? suspected sepsis ? TECHNIQUE:? One view of the chest was acquired.? ? COMPARISON:? None. ? FINDINGS:? ? Surgical changes and devices:? None.? ? Lungs and pleura:? Lungs are clear.? No pleural effusions or pneumothorax.? ? Mediastinum:? Mediastinal contours appear normal.? Heart size is normal.? ? Bones and chest wall:? No suspicious bony lesions.? Overlying soft tissues appear unremarkable.? ? IMPRESSION:? No acute cardiopulmonary findings ? ? ? Approved by: Red Bailey M.D. on 01/10/2023 at 19:15? ECG Data Interpretation: Sinus rhythm rate 110 TX interval 156 QRS [address] changes no T-wave inversions MDM Narrative Medical decision making narrative: Patient 82-year-old female presenting today with shaking chills and suprapubic pain. She is found to have a UTI with leukocytosis he has leukopenia of 2 7 but a normal lactic acid. She initially was quite tachycardic heart rate in [id number] range she CT years of IV fluids rate improved. She is never hypotensive she is afebrile. At is soft how think requires any imaging. She at 1 dose of Rocephin here in the ED. Patient ambulated without significant assistance her heart rate did increase into 120 but she is asymptomatic. Oxygen level was noted to be slightly low 91 and 93% rest with ambulation was 96%. She is asymptomatic respiratory panel is negative. Her chest x-ray does not show any pneumonia. She does live alone her daughter will stay with her tonight. Discussed strict return precautions and low threshold to return. Discharge Plan Departure Patient Disposition: Home Clinical Impression: Acute UTI Instructions: DI for Urinary Tract Infection (UTI) Activity Restrictions/Additional Instructions: *You have been diagnosed with UTI *What to do: At this time it does appear that you have a minor bladder infection. Increase fluids as tolerated *Continue to take medications as directed Cipro 500 mg twice a day for 5 days--> [facility] *Follow up with your primary care provider in 2-3 days or call [phone] *Return to ER if you should have increasing confusion weakness pain or any new, worsening or concerning symptoms Prescriptions: New ciprofloxacin HCl [Cipro] 500 mg tablet 500 mg PO BID Qty: 10 0RF No Action PreserVision AREDS-2 [phone] [id number] Capsule 1 tab PO BID atorvastatin 40 mg Tablet 40 mg PO DAILY levothyroxine 100 mcg Tablet 100 mcg PO DAILY tramadol 50 mg Tablet 50 mg PO QID PRN (Reason: Pain, Moderate (4-6)) Qty: 30 0RF Rx Instructions: Do not exceed 300 mg daily docusate sodium [DOK] 100 mg Capsule 100 mg PO BID Qty: 20 0RF aspirin 81 mg Tablet,Delayed Release (Dr/Ec) 81 mg PO BID Qty: 20 0RF ibuprofen 400 mg Tablet 400 mg PO Q4HR Qty: 20 0RF Referrals: Adela Ray PA-C [Primary Care Provider] - Stand Alone Forms: Patient Portal/API
[2023-01-10 23:30] LABS: Appearance Urine UA CLEAR; Bilirubin Urine UA NEGATIVE (NEGATIVE); Color Urine UA YELLOW; Glucose Urine UA NEGATIVE (Negative); Ketones Urine UA 1+ (NEGATIVE); Leukocyte Esterase Urine UA 1+ (NEGATIVE); Nitrite Urine UA NEGATIVE (Negative); Occult Blood Urine UA 1+ (Negative); Protein Urine UA NEGATIVE (Negative); Urobilinogen Urine UA 0.2 E.U./dL (0.2)
[2023-01-10 23:32] LABS: pH Urine UA 5.5 (4.5-8.0)
[2023-01-10 23:42] LABS: Bacteria Urine Few (2-10); Culture Indicated Urine Specimen Cultured; RBC Urine 1-5/HPF (0-5/HPF); Squamous Epithelial Cell Urine 1-5 /HPF (0-5/HPF); WBC Urine 1-5/HPF (0-5/HPF)
[2023-01-11] VITALS: BP 135/65; PULSE 106; RESP 23; O2SAT 94
[2023-01-11 00:30] VITALS: BP 136/65; PULSE 109; RESP 13; O2SAT 93
[2023-01-11 01:00] VITALS: BP 119/54; PULSE 110; RESP 23; O2SAT 93
[2023-01-11 01:30] VITALS: BP 109/51; PULSE 107; RESP 19; O2SAT 93
[2023-01-11] MEDS: cefTRIAXone 1,000 MG in SODIUM CHLORIDE 0.9% 100 ML 200 MG IV (01:59)
[2023-01-11 02:00] VITALS: BP 109/55; PULSE 109; RESP 19; O2SAT 93
[2023-01-11 02:15] LABS: Adenovirus Not Detected (Not Detect); B. parapertussis Not Detected (Not Detecte); Bordetella pertussis Not Detected (Not Detecte); Chlamydophila pneumoniae Not Detected (Not Detect); Coronavirus 229E Not Detected (Not Detect); Coronavirus HKU1 Not Detected (Not Detect); Coronavirus NL 63 Not Detected (Not Detect); Coronavirus OC43 Not Detected (Not Detect); Human Metapneumovirus Not Detected (Not Detect); Human Rhinovirus/Enterovirus Not Detected (Not Detect); Influenza A Not Detected (Not Detect); Influenza B Not Detected (Not Detect); Mycoplasma pneumoniae Not Detected (Not Detect); Parainfluenza Virus 1 Not Detected (Not Detect); Parainfluenza Virus 2 Not Detected (Not Detect); Parainfluenza Virus 3 Not Detected (Not Detect); Parainfluenza Virus 4 Not Detected (Not Detect); Respiratory Syncytial Virus Not Detected (Not Detect); SARS- CoV-2 Not Detected (Not Detecte)
--- NOTE | 2023-01-11 02:49 | PC.NURSE ---
Pt walked around the unit with a steady gait using a walker. Pt's SpO2 was 96% on RA and HR 120. HR returned to 108 after sitting for a minute. Pt reports some slight dizziness which resolved when she sat down. notified.
--- NOTE | 2023-01-11 18:07 | PC.NURSE ---
Per provider Hakeem, asked to call patient and have her return to ED. Pt will be coming to ED soon.
== END 2023-01-11 03:01 | disposition home or self-care (01) ==
PROVIDERS: Emergency Provider Emergency Medicine; Family Provider Physician Assistant; PCP Physician Assistant
DX: N39.0 Urinary tract infection, site not specified (principal)
CPT/HCPCS: 36415; 71045; 80053; 81001; 83605; 83690; 84145; 85025; 85610; 85730; 87040; 87086; 87633; 93005; J0696; J2405

== ENCOUNTER 2023-01-11 18:41 | Inpatient (IN) | payer MEDICARE, SELFPAY ==
[2020-04-04 14:14] VITALS: BMI 28.3
[2023-01-11] VITALS (7 sets, daily range): BP systolic 140–161; BP diastolic 68–77; PULSE 92–101; RESP 20–24; TEMP 36.9–38.6; O2SAT 94–96; BMI 25.8
[2023-01-11 19:24] LABS: Add Manual Diff / Slide Review NO; Basophils Absolute Auto 0 /uL (0-100); Basophils Percent Auto 0.3 % (0-2); Eosinophils Absolute Auto 100 /uL (0-450); Eosinophils Percent Auto 0.7 % (2-4); Hematocrit 36.3 % (36-46); Hemoglobin 12.3 g/dL (12.0-16.0); Lymphocytes Absolute Auto 400 /uL (1100-4500); Lymphocytes Percent Auto 5.4 % (25-40); Mean Corpuscular Hemoglobin 31.3 PG (26-34); Mean Corpuscular Volume 91.9 fL (80-100); Monocytes Absolute Auto 300 /uL (0-900); Monocytes Percent Auto 4.2 % (3-14); Neutrophils Absolute Auto 7300 /uL (1500-7000); Neutrophils Percent Auto 89.4 % (50-75); Platelet Count 59 X10^3/uL (150-400); Red Blood Cell Count 3.95 X10^6/uL (4.0-5.2); Red Cell Distribution Width 13.7 % (11.6-14.8); White Blood Cell Count 8.2 X10^3/uL (4.5-11.0)
[2023-01-11 19:26] LABS: Lactate (Lactic Acid) 0.9 mmol/L (0.7-2.1)
[2023-01-11 19:31] LABS: Alanine Aminotransferase 41 IU/L (<35); Albumin 3.4 g/dL (3.5-5.0); Albumin Globulin Ratio 1.2 (1.0-2.8); Alkaline Phosphatase 69 U/L (38-126); Aspartate Aminotransferase 44 IU/L (14-36); BUN Creatinine Ratio 16.2 (6-22); Bilirubin Total 2.1 mg/dL (0.2-1.3); Blood Urea Nitrogen 12 mg/dL (7-17); Calcium 7.8 mg/dL (8.4-10.2); Carbon Dioxide 22 mmol/L (22-32); Chloride 106 mmol/L (98-107); Creatine Kinase 50 U/L (30-135); Estimated Glomerular Filt Rate > 60 mL/min (>60); Globulin 2.9 g/dL (1.7-4.1); Glucose 108 mg/dL (80-110); HEMOLYSIS < 15 (0-50); Potassium 3.4 mmol/L (3.4-5.1); Sodium 133 mmol/L (137-145); Total Protein 6.3 g/dL (6.3-8.2)
[2023-01-11] MEDS: SODIUM CHLORIDE 0.9% 1,000 ML 1000 ML IV (19:33)
[2023-01-11 19:42] LABS: Troponin I < 0.012 ng/mL (0.01-0.034)
[2023-01-11 19:47] LABS: Procalcitonin 36.6 ng/mL (<0.5)
--- NOTE | 2023-01-11 19:56 | DI.CT.S_ITS ---
PROCEDURE: CT ABDOMEN PELVIS W CON INDICATIONS: fever uti supra pubic pain TECHNIQUE: After the administration of oral and IV contrast, axial sections were acquired from the lung bases to the pubic symphysis. Coronal and sagittal reformats were performed. For radiation dose reduction, the following was used: automated exposure control, adjustment of mA and/or kV according to patient size. COMPARISON: None. FINDINGS: Image quality: Excellent. Lung bases: Unremarkable. Heart: No significant findings. ABDOMEN: Liver: Hepatic steatosis is present. The liver measures 17.5 cm. Gallbladder: Numerous dependent luminal stones are present without wall thickening. Biliary ducts: Unremarkable. Pancreas: Unremarkable. Spleen: Spleen measures 12.2 cm. Adrenal Glands: Unremarkable. Kidneys and Ureters: Incidental note of a retroaortic left renal vein. Bilateral low-attenuation foci are present most suggestive of simple cysts. Stomach and Bowel: Stomach, small bowel loops, and colon are nonobstructive. There is thickening within the distal sigmoid colon with diverticula. Very minimal surrounding inflammatory change. Peritoneum: No abnormal intraperitoneal fluid. No free air. Ventral Wall: No hernia. Abdominal Nodes: No retroperitoneal or mesenteric adenopathy by size criteria. Vessels: Aorta and inferior vena cava are normal in size. PELVIS: Pelvic Organs: Unremarkable. Bladder: Fat containing right inguinal hernia is present. Pelvic Nodes: No enlarged lymph nodes. Miscellaneous: No inguinal hernias are seen. Bones: Unremarkable. IMPRESSION: Thickening within the distal descending colon with diverticula. Findings could be related to early colitis secondary diverticulitis given lack appreciable inflammatory change. However, given lack of inflammatory change, interval follow-up is recommended to document resolution and exclude presence of underlying mass lesion. Dictated by: Jade Herzog M.D. on 01/11/2023 at 20:28 Approved by: Jade Herzog M.D. on 01/11/2023 at 20:31
--- NOTE | 2023-01-11 19:56 | ED.ABDPAIN ---
HPI - Abdominal Pain General Chief Complaint: Abdominal Pain Stated Complaint: was guerrero T-1 Dr called and told her to come back Time Seen by Provider: 01/11/23 19:13 Source: patient and family Mode of arrival: Wheelchair History of Present Illness HPI narrative: Patient is an 82-year-old female who was called back by myself today for positive blood culture. She was seen evaluated by myself yesterday she had some shaking chills some suprapubic pain she did have some evidence of UTI with leukocytes and a few bacteria. She had leukocytosis 2.7 but was discharged home. Today she has Gram-positive blood culture. She reports it today she slept most of the day feeling quite fatigued. She still has some abdominal discomfort but generally not feeling great. No significant nausea or vomiting. She was prescribed Cipro she took Related Data Home Medications Medication Instructions Recorded Confirmed atorvastatin 40 mg tablet 40 mg PO DAILY 03/28/20 01/11/23 vit C 250 mg-vit E 90 mg-zinc 40 1 tab PO BID 03/28/20 01/11/23 mg-copper 1 [id number] capsule (PreserVision AREDS-2) levothyroxine 88 mcg tablet 88 mcg PO DAILY 01/11/23 01/11/23 Previous Rx's Medication Instructions Recorded ciprofloxacin HCl 500 mg tablet 500 mg PO BID #10 tabs 01/11/23 (Cipro) Allergies Allergy/AdvReac Type Severity Reaction Status Date / Time penicillin G [PENICILLIN G] Allergy Intermediate Swelling Verified 01/11/23 19:17 at injection Sulfa (Sulfonamide Allergy Intermediate Childhood Verified 01/11/23 19:17 Antibiotics) I almost [SULFA (SULFONAMIDE ANTIBIOTICS)] codeine AdvReac Severe Nausea, Verified 01/11/23 19:17 vomiting Review of Systems Review of Systems ROS Unobtainable: All systems reviewed & are unremarkable except as noted in HPI and below Patient History Medical History Chronic low back pain DDD (degenerative disc disease) Hearing loss Heartburn HLD (hyperlipidemia) Hypothyroid Macular degeneration of both eyes Osteoarthritis Seasonal allergies Surgical History History of colonoscopy History of surgery on arm Hx of bilateral cataract extraction (~2012) Hx of hemorrhoidectomy (~1976) Hx of knee surgery (~1959) S/P epidural steroid injection Social History household members: none Smoking Status: Former smoker alcohol intake: current Smoking Status: Former smoker alcohol intake frequency: 0-2 drinks per day Substance Use Type: does not use Exam Initial Vital Signs Initial Vital Signs: Vital Signs Temperature 99.1 F 01/11/23 18:58 Pulse Rate 101 H 01/11/23 18:58 Respiratory Rate 20 01/11/23 18:58 Blood Pressure 153/77 H 01/11/23 18:58 Pulse Oximetry 95 01/11/23 18:58 Oxygen Delivery Method Room Air 01/11/23 18:58 GENERAL: Alert 82-year-old female appears nontoxic and in no acute distress. HEENT: Head atraumatic,EOMI, pupils reactive, face symmetric, moist mucous membranes CARDIOVASCULAR: Regular rate and rhythm without murmurs, rubs or gallops. RESPIRATORY: Breath sounds equal bilaterally, no wheezes rales or rhonchi. ABDOMEN: Soft, nontender. Normoactive bowel sounds all 4 quadrants. No guarding or rebound. : No CVA tenderness EXTREMITIES: Normal range of motion, no clubbing or edema. Neurovascularly intact NEUROLOGICAL: Alert and oriented x4 SKIN: Warm, dry, no laceration, no petechiae, no rashes or lesions. Course Orders Ordered: ED Orders 01/11/23 19:13 EKG-12 Lead Stat 01/11/23 19:56 CT abdomen pelvis w con Stat 01/12/23 05:00 Basic Metabolic Panel Routine Complete Blood Count AUTO DIFF Routine Procalcitonin Routine Acetaminophen (Acetaminophen 325 Mg Tablet) 650 mg PO Q6H PRN PRN Reason: Fever/Mild Pain (1-3) Last Admin: 01/11/23 23:18 Dose: 650 mg Documented By: AM Enoxaparin Sodium (Enoxaparin 40 Mg/0.4 Ml Syringe) 40 mg SUBCUT DAILY FÉLIX Sodium Chloride (Normal Saline 0.9%) 1,000 mls @ 100 mls/hr IV CONT FÉLIX Last Admin: 01/11/23 23:15 Dose: 100 mls/hr Documented By: AM Piperacillin Sod/Tazobactam (Sod 3.375 gm/ Sodium Chloride) 100 mls @ 25 mls/hr IV Q8H [facility] Last Admin: 01/11/23 23:15 Dose: 25 mls/hr Documented By: AM Vancomycin HCl (Vancomycin) 1,250 mg in 250 mls @ 167 mls/hr IV Q24H [facility] Levothyroxine Sodium (Levothyroxine 88 Mcg Tablet) 88 mcg PO 0600 [facility] Ondansetron HCl (Ondansetron 4 Mg/2 Ml Inj) 4 mg IV Q8HR PRN PRN Reason: Nausea And Vomiting Vancomycin HCl (Vancomycin Per Pharmacy) 1 request MISC NOW ONE Stop: 01/11/23 22:22 Discontinued Medications Sodium Chloride (Normal Saline 0.9%) 1,000 mls @ 1,000 mls/hr IV BOLUS ONE Stop: 01/11/23 20:12 Last Infusion: 01/11/23 20:39 Dose: 0 mls/hr Documented By: Admin: 01/11/23 19:33 Dose: 1,000 mls/hr Documented By: SB Levofloxacin (Levaquin) 750 mg in 150 mls @ 100 mls/hr IV NOW ONE Stop: 01/11/23 21:19 Last Infusion: 01/11/23 21:34 Dose: 0 mls/hr Documented By: Admin: 01/11/23 19:57 Dose: 100 mls/hr Documented By: SB Vancomycin HCl (Vancomycin) 1,250 mg in 250 mls @ 250 mls/hr IV NOW ONE Stop: 01/11/23 20:50 Last Admin: 01/11/23 21:34 Dose: 250 mls/hr Documented By: MANNY Vital Signs Vital signs: Vital Signs - 8 hr 01/11/23 20:21 01/11/23 21:44 Temperature 99.8 F H Pulse Rate 98 H Blood Pressure 161/77 H 151/68 H Pulse Oximetry 94 Oxygen Delivery Method Room Air Oxygen Flow Rate 0 MDM - Abdominal Pain Lab Data 01/11/23 19:00 01/11/23 19:00 Labs: Lab Results 01/11/23 01/11/23 01/11/23 Range/Units 19:00 19:00 19:00 WBC 8.2 D (4.5-11.0) X10^3/uL RBC 3.95 L (4.0-5.2) X10^6/uL Hgb 12.3 (12.0-16.0) g/dL Hct 36.3 (36-46) % MCV 91.9 (80-100) fL MCH 31.3 (26-34) PG MCHC 34.0 (30-36) % RDW 13.7 (11.6-14.8) % Plt Count 59 L (150-400) X10^3/uL Neut % (Auto) 89.4 H (50-75) % Lymph % (Auto) 5.4 L (25-40) % [place] % (Auto) 4.2 (3-14) % Eos % (Auto) 0.7 L (2-4) % Baso % (Auto) 0.3 (0-2) % Neut # (Auto) 7300 H (4965-8594) /uL Lymph # (Auto) 400 L (6576-7731) /uL [place] # (Auto) 300 (0-900) /uL Eos # (Auto) 100 (0-450) /uL Baso # (Auto) 0 (0-100) /uL Sodium 133 L (137-145) mmol/L Potassium 3.4 (3.4-5.1) mmol/L Chloride 106 (98-107) mmol/L Carbon Dioxide 22 (22-32) mmol/L BUN 12 (7-17) mg/dL Creatinine 0.74 (0.52-1.04) mg/dL Estimated GFR > 60 (>60) mL/min BUN/Creatinine Ratio 16.2 (6-22) Glucose 108 (80-110) mg/dL Lactate 0.9 (0.7-2.1) mmol/L Calcium 7.8 L (8.4-10.2) mg/dL Total Bilirubin 2.1 H (0.2-1.3) mg/dL AST 44 H (14-36) IU/L ALT 41 H (<35) IU/L Alkaline Phosphatase 69 (38-126) U/L Total Creatine Kinase 50 (30-135) U/L CK-MB (CK-2) TNP CK-MB (CK-2) Rel Index TNP Troponin I < 0.012 (0.01-0.034) ng/mL Total Protein 6.3 (6.3-8.2) g/dL Albumin 3.4 L (3.5-5.0) g/dL Globulin 2.9 (1.7-4.1) g/dL Albumin/Globulin Ratio 1.2 (1.0-2.8) Procalcitonin (<0.5) ng/mL 01/11/23 Range/Units 19:00 WBC (4.5-11.0) X10^3/uL RBC (4.0-5.2) X10^6/uL Hgb (12.0-16.0) g/dL Hct (36-46) % MCV (80-100) fL MCH (26-34) PG MCHC (30-36) % RDW (11.6-14.8) % Plt Count (150-400) X10^3/uL Neut % (Auto) (50-75) % Lymph % (Auto) (25-40) % [place] % (Auto) (3-14) % Eos % (Auto) (2-4) % Baso % (Auto) (0-2) % Neut # (Auto) (6960-2488) /uL Lymph # (Auto) (5468-9367) /uL [place] # (Auto) (0-900) /uL Eos # (Auto) (0-450) /uL Baso # (Auto) (0-100) /uL Sodium (137-145) mmol/L Potassium (3.4-5.1) mmol/L Chloride (98-107) mmol/L Carbon Dioxide (22-32) mmol/L BUN (7-17) mg/dL Creatinine (0.52-1.04) mg/dL Estimated GFR (>60) mL/min BUN/Creatinine Ratio (6-22) Glucose (80-110) mg/dL Lactate (0.7-2.1) mmol/L Calcium (8.4-10.2) mg/dL Total Bilirubin (0.2-1.3) mg/dL AST (14-36) IU/L ALT (<35) IU/L Alkaline Phosphatase (38-126) U/L Total Creatine Kinase (30-135) U/L CK-MB (CK-2) CK-MB (CK-2) Rel Index Troponin I (0.01-0.034) ng/mL Total Protein (6.3-8.2) g/dL Albumin (3.5-5.0) g/dL Globulin (1.7-4.1) g/dL Albumin/Globulin Ratio (1.0-2.8) Procalcitonin 36.6 H (<0.5) ng/mL Imaging Data CT scan - abdomen/pelvis: Radiologist's Impression: PROCEDURE:? CT ABDOMEN PELVIS W CON ? INDICATIONS:? fever uti supra pubic pain ? TECHNIQUE:? After the administration of oral and IV contrast, axial sections were acquired from the lung bases to the pubic symphysis.? Coronal and sagittal reformats were performed.? For radiation dose reduction, the following was used:? automated exposure control, adjustment of mA and/or kV according to patient size. ? COMPARISON:? None. ? FINDINGS:? Image quality:? Excellent.? ? Lung bases:? Unremarkable.? ? Heart:? No significant findings. ? ? ABDOMEN: Liver:? Hepatic steatosis is present.? The liver measures 17.5 cm. Gallbladder:? Numerous dependent luminal stones are present without wall thickening.? ? Biliary ducts:? Unremarkable.? ? Pancreas:? Unremarkable.? ? Spleen:? Spleen measures 12.2 cm. Adrenal Glands:? Unremarkable.? ? Kidneys and Ureters:? Incidental note of a retroaortic left renal vein.? Bilateral low-attenuation foci are present most suggestive of simple cysts. ? Stomach and Bowel:? Stomach, small bowel loops, and colon are nonobstructive.? There is thickening within the distal sigmoid colon with diverticula.? Very minimal surrounding inflammatory change. Peritoneum:? No abnormal intraperitoneal fluid.? No free air.? ? Ventral Wall: ? No hernia.? Abdominal Nodes:? No retroperitoneal or mesenteric adenopathy by size criteria.? Vessels:? Aorta and inferior vena cava are normal in size.? ? PELVIS: Pelvic Organs:? Unremarkable.? ? Bladder:? Fat containing right inguinal hernia is present. Pelvic Nodes: No enlarged lymph nodes.? Miscellaneous: No inguinal hernias are seen. ? ? ? Bones:? Unremarkable.? IMPRESSION:? ? Thickening within the distal descending colon with diverticula.? Findings could be related to early colitis secondary diverticulitis given lack appreciable inflammatory change.? However, given lack of inflammatory change, interval follow-up is recommended to document resolution and exclude presence of underlying mass lesion.? ? ? Dictated by: Jade Herzog M.D. on 01/11/2023 at 20:28 ? ? ECG Data Interpretation: Sinus rhythm rate 96 MT interval 164 QRS [address] changes Q-wave noted in lead 3 similar to yesterday's. MDM Narrative Medical decision making narrative: Patient 82-year-old female presented yesterday with rigors probable UTI has a 1 Gram-positive cocci in her blood culture. It is possible this is a contaminant. Today she does not have any leukocytosis fever tachycardia or hypotension. However she has a significant elevation in her procalcitonin yesterday it was 0.18 and today it is 36. Suggestive of bacterial infection. Lactic acid is within normal limits. There is no sign of stock. This time seems reasonable to place her in observation wait for cultures and receive IV antibiotics. She has repeat blood cultures pending today. CT today does also show possible early colitis but no abscess diverticulitis or other abdominal etiology. Dr. Mortensen accepts to observation Discharge Plan Departure Patient Disposition: Admitted as Observation Clinical Impression: Acute UTI, Positive blood culture Admit Date/Time: 01/11/23 22:03 Admit Provider: Vj Mortensen
[2023-01-11] MEDS: levoFLOXacin 750 MG/150 ML PIGGYBACK 100 MG IV (19:57)
[2023-01-11] MEDS: VANCOMYCIN 1,250 MG/250 ML PIGGYBACK 250 MG IV (21:34)
[2023-01-11] MEDS: PIPERACILLIN/TAZO 3.375 GM in SODIUM CHLORIDE 0.9% 100 ML IV (23:15)
[2023-01-11] MEDS: SODIUM CHLORIDE 0.9% 1,000 ML 100 ML IV (23:15)
[2023-01-11] MEDS: ACETAMINOPHEN 325 MG TABLET 650 MG PO (23:18)
--- NOTE | 2023-01-12 03:16 | PM.HP.1 ---
History of Present Illness History of Present Illness Date Patient Seen: 01/12/23 Time Patient Seen: 00:30 Chief complaint: was guerrero T-1 Dr called and told her to come back Narrative: Ms. Mayo is an 82W with PMH hypothyroid who presents to the hospital with positive blood culture. She notes she has not been feeling well for a few days. Primarily she has lack of energy. She was feeling rigors a couple days ago. She had suprapubic discomfort, and she has had daily loose stools. No urinary changes. No coughing. No fevers. No shortness of breath. She presented yesterday to the ED and was tachycardic which improved with fluids and was thought to have a possible UTI and was sent home with antibiotics. Today she returns because of positive blood culture 2/4 bottles, 1 draw, for GPCs. In the ED workup was done, vitals notable for afebrile, heart rate 100s, blood pressure 150s/70s. Sats 95% on room air. Labs reviewed by me and notable for WBC 8.2, hgb 12.3, plts 59. Na 133, creatinine 0.74. Bili 2.1, ast/alt 44/41. Procal 36.6. Chest xray negative for any acute process. CT abdomen/pelvis shows thickening in the colon possibly consistent with colitis. She was ordered for antibiotics and admitted for further treatment. [facility] Medical History Chronic low back pain DDD (degenerative disc disease) Hearing loss Heartburn HLD (hyperlipidemia) Hypothyroid Macular degeneration of both eyes Osteoarthritis Seasonal allergies Surgical History History of colonoscopy History of surgery on arm Hx of bilateral cataract extraction (~2012) Hx of hemorrhoidectomy (~1976) Hx of knee surgery (~1959) S/P epidural steroid injection Social History household members: none Smoking Status: Former smoker alcohol intake: current Meds Home Medications and Allergies Home Medications Medication Instructions Recorded Confirmed Type atorvastatin 40 mg tablet 40 mg PO DAILY 03/28/20 01/11/23 History vit C 250 mg-vit E 90 mg-zinc 40 1 tab PO BID 03/28/20 01/11/23 History mg-copper 1 [id number] capsule (PreserVision AREDS-2) ciprofloxacin HCl 500 mg tablet 500 mg PO BID #10 tabs 01/11/23 01/11/23 Rx (Cipro) levothyroxine 88 mcg tablet 88 mcg PO DAILY 01/11/23 01/11/23 History Allergies Allergy/AdvReac Type Severity Reaction Status Date / Time penicillin G [PENICILLIN G] Allergy Intermediate Swelling Verified 01/11/23 19:17 at injection Sulfa (Sulfonamide Allergy Intermediate Childhood Verified 01/11/23 19:17 Antibiotics) I almost [SULFA (SULFONAMIDE ANTIBIOTICS)] codeine AdvReac Severe Nausea, Verified 01/11/23 19:17 vomiting Review of Systems Review of Systems Narrative: 14 systems reviewed and negative aside from what is noted in HPI Exam Vital Signs (past 8 hours): - 01/11/23 19:41 01/11/23 20:21 01/11/23 21:44 Temperature 99.8 F H Pulse Rate 92 H 98 H Respiratory Rate 24 Blood Pressure 151/70 H 161/77 H 151/68 H Pulse Oximetry 95 94 Oxygen Delivery Method Room Air Room Air Oxygen Flow Rate 0 01/11/23 22:18 01/11/23 22:44 01/11/23 23:18 Temperature 101.4 F H 98.5 F 99.8 F H Pulse Rate 94 H Respiratory Rate 20 Blood Pressure 148/68 H 140/70 Pulse Oximetry 96 Oxygen Delivery Method Oxygen Flow Rate 0 Oxygen Delivery Method Room Air Oxygen Flow Rate 0 Narrative Exam Narrative: GEN: no acute distress HEENT: moist mucous membranes CV: regular rate and rhythm, no murmurs PULM: clear bilaterally ABD: soft, nontender, nondistended EXT: warm and well perfused witho no edema NEURO: awake, alert, oriented, no focal deficits Objective Labs 01/11/23 19:00 01/11/23 19:00 Labs: Laboratory Results - last 24 hr 01/11/23 01/11/23 01/11/23 19:00 19:00 19:00 WBC 8.2 D RBC 3.95 L Hgb 12.3 Hct 36.3 MCV 91.9 MCH 31.3 MCHC 34.0 RDW 13.7 Plt Count 59 L Neut % (Auto) 89.4 H Lymph % (Auto) 5.4 L [place] % (Auto) 4.2 Eos % (Auto) 0.7 L Baso % (Auto) 0.3 Neut # (Auto) 7300 H Lymph # (Auto) 400 L [place] # (Auto) 300 Eos # (Auto) 100 Baso # (Auto) 0 Sodium 133 L Potassium 3.4 Chloride 106 Carbon Dioxide 22 BUN 12 Creatinine 0.74 Estimated GFR > 60 BUN/Creatinine Ratio 16.2 Glucose 108 Lactate 0.9 Calcium 7.8 L Total Bilirubin 2.1 H AST 44 H ALT 41 H Alkaline Phosphatase 69 Total Creatine Kinase 50 CK-MB (CK-2) TNP CK-MB (CK-2) Rel Index TNP Troponin I < 0.012 Total Protein 6.3 Albumin 3.4 L Globulin 2.9 Albumin/Globulin Ratio 1.2 Procalcitonin 01/11/23 19:00 WBC RBC Hgb Hct MCV MCH MCHC RDW Plt Count Neut % (Auto) Lymph % (Auto) [place] % (Auto) Eos % (Auto) Baso % (Auto) Neut # (Auto) Lymph # (Auto) [place] # (Auto) Eos # (Auto) Baso # (Auto) Sodium Potassium Chloride Carbon Dioxide BUN Creatinine Estimated GFR BUN/Creatinine Ratio Glucose Lactate Calcium Total Bilirubin AST ALT Alkaline Phosphatase Total Creatine Kinase CK-MB (CK-2) CK-MB (CK-2) Rel Index Troponin I Total Protein Albumin Globulin Albumin/Globulin Ratio Procalcitonin 36.6 H Assessment & Plan Assessment & Plan narrative: 1. Bacteremia, SIRS -CT scan with questionable colitis but shows thick descending colon with no significant inlammatory changes -UA with leuk esterase, and bacteria, urine culture pending -procal elevated at 36 -blood cultures positive in 2/4 bottles, the anaerobic and aerobic from one stick, second draw no growth to date, bacteria growing GPCs -unclear if blood cultures are contaminant or true positive, follow up final cultures -for now ordered vanc/zosyn to treat possible UTI vs colitis and GPC bacteremia -follow up with PCP to determine follow up with CT to ensure resolution of thick descending colon 2. Hypothyroidism -continue synthroid 3. Thrombocytopenia -on admit is 59 -has chronic low platelets, but this is lower than normal -likely worsened secondary to infection 4. Elevated bilirubin -chronically elevated -on admit bilirubin 2.1 -ast/alt 44/41 -repeat labs tomorrow to see if improved with treatment of infection I have discussed plan and obtained history from patient and family. I have discussed plan of care with ED physician and bedside nurse. I have reviewed labs, imaging. CODE: DNR Proxy: Chey Raines, daughter
[2023-01-12 05:03] VITALS: BP 124/61; PULSE 84; RESP 20; TEMP 36.8; O2SAT 93
[2023-01-12 05:46] LABS: Add Manual Diff / Slide Review NO; Basophils Absolute Auto 0 /uL (0-100); Basophils Percent Auto 0.4 % (0-2); Eosinophils Absolute Auto 100 /uL (0-450); Eosinophils Percent Auto 1.7 % (2-4); Hematocrit 32.6 % (36-46); Hemoglobin 11.1 g/dL (12.0-16.0); Lymphocytes Absolute Auto 500 /uL (1100-4500); Lymphocytes Percent Auto 8.9 % (25-40); Mean Corpuscular HGB Conc 34.2 % (30-36); Mean Corpuscular Hemoglobin 31.8 PG (26-34); Mean Corpuscular Volume 93.1 fL (80-100); Monocytes Absolute Auto 300 /uL (0-900); Monocytes Percent Auto 5.9 % (3-14); Neutrophils Absolute Auto 4500 /uL (1500-7000); Neutrophils Percent Auto 83.1 % (50-75); Platelet Count 61 X10^3/uL (150-400); Red Cell Distribution Width 13.1 % (11.6-14.8); White Blood Cell Count 5.4 X10^3/uL (4.5-11.0)
[2023-01-12 06:03] LABS: BUN Creatinine Ratio 11.6 (6-22); Blood Urea Nitrogen 8 mg/dL (7-17); Calcium 7.4 mg/dL (8.4-10.2); Carbon Dioxide 22 mmol/L (22-32); Chloride 112 mmol/L (98-107); Estimated Glomerular Filt Rate > 60 mL/min (>60); Glucose 102 mg/dL (80-110); HEMOLYSIS < 15 (0-50); Potassium 3.1 mmol/L (3.4-5.1); Sodium 140 mmol/L (137-145)
[2023-01-12] MEDS: LEVOTHYROXINE 88 MCG TABLET PO (06:24)
[2023-01-12] MEDS: PIPERACILLIN/TAZO 3.375 GM in SODIUM CHLORIDE 0.9% 100 ML IV ×3 (07:31→22:07)
[2023-01-12 10:02] VITALS: BP 148/79; PULSE 83; RESP 12; TEMP 36.9; O2SAT 95
--- NOTE | 2023-01-12 11:06 | PC.NURSE ---
Patient's IV to left arm leaking and removed. Unable to infuse vancomycin and zosyn concurrently, as not approved through IV compatibility.
--- NOTE | 2023-01-12 11:45 | P.PN_ITS ---
Subjective Subjective Date Patient Seen: 01/12/23 Interval history: Pt states she is feeling better. Not shaky like before, more with it, dec in lower abdominal pain. Tolerated breakfast. Has been afebrile. Awaiting blood cx sensitivities. Exam Vital Signs (past 8 hours): - 01/12/23 05:03 01/12/23 10:02 Temperature 98.2 F 98.5 F Pulse Rate 84 83 Respiratory Rate 20 12 Blood Pressure 124/61 148/79 H Pulse Oximetry 93 95 Oxygen Flow Rate 0 Oxygen Delivery Method Room Air Oxygen Flow Rate 0 Narrative Exam Narrative: Gen: alert, NAD Lungs: clear Abd: soft, mild tenderness LLQ, RLQ Ext: no edema Neuro: nl affect and speech Objective Labs 01/12/23 05:00 01/12/23 05:00 Labs: Laboratory Results - last 24 hr 01/11/23 01/11/23 01/11/23 19:00 19:00 19:00 WBC 8.2 D RBC 3.95 L Hgb 12.3 Hct 36.3 MCV 91.9 MCH 31.3 MCHC 34.0 RDW 13.7 Plt Count 59 L Neut % (Auto) 89.4 H Lymph % (Auto) 5.4 L [place] % (Auto) 4.2 Eos % (Auto) 0.7 L Baso % (Auto) 0.3 Neut # (Auto) 7300 H Lymph # (Auto) 400 L [place] # (Auto) 300 Eos # (Auto) 100 Baso # (Auto) 0 Sodium 133 L Potassium 3.4 Chloride 106 Carbon Dioxide 22 BUN 12 Creatinine 0.74 Estimated GFR > 60 BUN/Creatinine Ratio 16.2 Glucose 108 Lactate 0.9 Calcium 7.8 L Total Bilirubin 2.1 H AST 44 H ALT 41 H Alkaline Phosphatase 69 Total Creatine Kinase 50 CK-MB (CK-2) TNP CK-MB (CK-2) Rel Index TNP Troponin I < 0.012 Total Protein 6.3 Albumin 3.4 L Globulin 2.9 Albumin/Globulin Ratio 1.2 Procalcitonin 01/11/23 01/12/23 01/12/23 19:00 05:00 05:00 WBC 5.4 RBC 3.50 L Hgb 11.1 L Hct 32.6 L MCV 93.1 MCH 31.8 MCHC 34.2 RDW 13.1 Plt Count 61 L Neut % (Auto) 83.1 H Lymph % (Auto) 8.9 L [place] % (Auto) 5.9 Eos % (Auto) 1.7 L Baso % (Auto) 0.4 Neut # (Auto) 4500 Lymph # (Auto) 500 L [place] # (Auto) 300 Eos # (Auto) 100 Baso # (Auto) 0 Sodium 140 Potassium 3.1 L Chloride 112 H Carbon Dioxide 22 BUN 8 Creatinine 0.69 Estimated GFR > 60 BUN/Creatinine Ratio 11.6 Glucose 102 Lactate Calcium 7.4 L Total Bilirubin AST ALT Alkaline Phosphatase Total Creatine Kinase CK-MB (CK-2) CK-MB (CK-2) Rel Index Troponin I Total Protein Albumin Globulin Albumin/Globulin Ratio Procalcitonin 36.6 H 29.0 H PFSH Medical History Chronic low back pain DDD (degenerative disc disease) Hearing loss Heartburn HLD (hyperlipidemia) Hypothyroid Macular degeneration of both eyes Osteoarthritis Seasonal allergies Surgical History History of colonoscopy History of surgery on arm Hx of bilateral cataract extraction (~2012) Hx of hemorrhoidectomy (~1976) Hx of knee surgery (~1959) S/P epidural steroid injection Social History household members: none Smoking Status: Former smoker alcohol intake: current Assessment & Plan Assessment & Plan narrative: 1. Acute diverticulitis descending colon -CT scan: thickening within distal descending colon with diverticula, without sig inflammation -blood cultures positive in 2/4 bottles, the anaerobic and aerobic from one stick, second draw no growth to date, bacteria growing GPCs -unclear if blood cultures are contaminant or true positive, follow up final cultures -urine cx negative -cont Zosyn and Vancomycin, d/c Vanc if culture c/w contaminant -pt had normal colonoscopy in 2019 (+family hx colon CA - mom age 68 of it) 2. Hypothyroidism -continue synthroid 3. Thrombocytopenia -on admit is 59, repeat 61 -has chronic low platelets (>100), but this is lower than normal -likely worsened secondary to infection 4. Elevated bilirubin, stable -chronically mildly elevated bili 5. hyperlipidemia -cont atorvastatin 6. hypokalemia -give oral K and recheck tomorrow AM Hopefully discharge tomorrow if stable and pos culture c/w contaminant DVT prevention: SCDs, enoxaprin contraindicated due to low platelets
[2023-01-12] MEDS: VANCOMYCIN 750 MG/150 ML PIGGYBACK 150 MG IV ×2 (11:46→20:50)
[2023-01-12] MEDS: POTASSIUM CHLORIDE 20 MEQ TAB 40 MEQ PO (11:46)
--- NOTE | 2023-01-12 12:01 | CM.DANOTE ---
DCP Assessment: Patient is an 82yo F here with a UTI/positive blood culture. Patient has been experiencing abdominal pain and recent diarrhea. PCP: Adela Ray Payer: Medicare and [employer] WOMEN'S ACTIVITIES ADVISER reviewed EMR. WOMEN'S ACTIVITIES ADVISER entered room and introduced self and role. Patient appeared A/Ox4 and reports being hard of hearing, and requested this author speak loud and slow. Patient was accompanied by daughter/emergency contact Chey ([phone]). Patient lives alone in [place] and has one tiny step at her house. Patient is independent at baseline and has a walker/cane she needed years ago from when she had knee surgery. Patient drives. Patient has a supportive daughter for additional needs that lives a half a mile away. Plan: d/c home when medically stable. Transport with either daughter or NAYELI. CM team will continue to follow closely for needs. DENISE Miller Discharge Planning/Care Management CM Discharge Assessment Start: 01/12/23 11:59 Freq: Status: Active Protocol: Document 01/12/23 11:59 (Rec: 01/12/23 12:01 [id number]) Discharge Planning Assessment Assigned Automatic Tire Tester DENISE Doty DPOA/Assigned Designee Name Chey (daughter) Contact Information [phone] Advance Directives? Yes: POLST Advance Directives on File No History Provided By Patient,Family Member,Medical Record Prior Living Arrangements Apartment/Condo Household Members none Comment daughter lives a half a mile away Type of transporation used prior to Drives own vehicle admit Independent with ADL's Yes Is patient alert and oriented? Yes DME Already Rented / Owned FWW / Walker,Cane Comment uses as needed Patient/Family Preference OP PT Therapy Barriers to Discharge No Discharge Plan Home Transportation Arrangement either daughter or NAYELI will transport home Referrals Initiated None needed Whiteboard Updated in Patient Room with Yes name and ext. # of Automatic Tire Tester Review Status In Process Next Review Type Continued Stay Review
[2023-01-12 15:33] LABS: Troponin I < 0.012 ng/mL (0.01-0.034)
[2023-01-12 16:47] VITALS: BP 169/79; PULSE 86; RESP 12; TEMP 37.3; O2SAT 97
[2023-01-12] MEDS: ATORVASTATIN 20 MG TABLET 40 MG PO (20:50)
[2023-01-12 22:57] VITALS: BP 156/78; PULSE 84; RESP 18; TEMP 36.9; O2SAT 97
[2023-01-13 03:07] VITALS: BP 150/84; PULSE 91; RESP 20; TEMP 36.7; O2SAT 96
[2023-01-13] MEDS: PIPERACILLIN/TAZO 3.375 GM in SODIUM CHLORIDE 0.9% 100 ML IV (05:46)
[2023-01-13] MEDS: LEVOTHYROXINE 88 MCG TABLET PO (05:46)
[2023-01-13 06:28] LABS: Add Manual Diff / Slide Review NO; Basophils Absolute Auto 0 /uL (0-100); Basophils Percent Auto 0.7 % (0-2); Eosinophils Absolute Auto 200 /uL (0-450); Eosinophils Percent Auto 4.3 % (2-4); Hematocrit 35.9 % (36-46); Hemoglobin 12.3 g/dL (12.0-16.0); Lymphocytes Absolute Auto 900 /uL (1100-4500); Lymphocytes Percent Auto 18.9 % (25-40); Mean Corpuscular HGB Conc 34.4 % (30-36); Monocytes Absolute Auto 400 /uL (0-900); Monocytes Percent Auto 7.6 % (3-14); Neutrophils Absolute Auto 3200 /uL (1500-7000); Neutrophils Percent Auto 68.5 % (50-75); Platelet Count 54 X10^3/uL (150-400); Red Blood Cell Count 3.86 X10^6/uL (4.0-5.2); Red Cell Distribution Width 13.1 % (11.6-14.8); White Blood Cell Count 4.7 X10^3/uL (4.5-11.0)
[2023-01-13 06:45] LABS: Alanine Aminotransferase 33 IU/L (<35); Albumin 3.1 g/dL (3.5-5.0); Albumin Globulin Ratio 1.1 (1.0-2.8); Alkaline Phosphatase 66 U/L (38-126); Aspartate Aminotransferase 30 IU/L (14-36); BUN Creatinine Ratio 9.2 (6-22); Bilirubin Total 1.3 mg/dL (0.2-1.3); Blood Urea Nitrogen 6 mg/dL (7-17); Calcium 8.2 mg/dL (8.4-10.2); Carbon Dioxide 22 mmol/L (22-32); Chloride 111 mmol/L (98-107); Estimated Glomerular Filt Rate > 60 mL/min (>60); Globulin 2.8 g/dL (1.7-4.1); Glucose 90 mg/dL (80-110); HEMOLYSIS < 15 (0-50); Potassium 3.7 mmol/L (3.4-5.1); Sodium 138 mmol/L (137-145); Total Protein 5.9 g/dL (6.3-8.2)
[2023-01-13 07:30] VITALS: BP 150/79; PULSE 78; RESP 18; TEMP 36.7; O2SAT 97
--- NOTE | 2023-01-13 09:33 | CM.DPC ---
DCP Continued: NEWS CLERK reviewed EMR. NEWS CLERK entered room and introduced self and role. Patient was sitting up in bed eating breakfast and appeared A/Ox4. Patient was accompanied by daughter Chey ([phone]). Patient reported waiting on results for more information on a d/c timeline. Patient's daughter can still transport home if today is the day. Patient claims no other needs at this time. Plan: d/c when medically stable home. With daughter to transport and nearby to assist. CM team will continue to follow. DENISE Miller
[2023-01-13 09:50] LABS: Vancomycin Trough 9.2 ug/mL (10-20)
[2023-01-13] MEDS: VANCOMYCIN 750 MG/150 ML PIGGYBACK 150 MG IV (10:19)
--- NOTE | 2023-01-13 10:39 | PC.NURSE ---
Assess- Patient is steady on her feet to the bathroom. She denies pain and states that she is feeling better today. IV vancomycin infusing and patient is tolerating this well. Results of Vanco trough back and pharmacist aware. Patients peak level will be drawn around 1220.
--- NOTE | 2023-01-13 11:59 | P.DS_ITS ---
History of Present Illness History of Present Illness Chief complaint: was guerrero T-1 Dr called and told her to come back Narrative: 82W with PMH hypothyroid who presents to the hospital with positive blood culture. She notes she has not been feeling well for a few days. Primarily she has lack of energy. She was feeling rigors a couple days ago. She had suprapubic discomfort, and she has had daily loose stools. No urinary changes. No coughing. No fevers. No shortness of breath. She presented yesterday to the ED and was tachycardic which improved with fluids and was thought to have a possible UTI and was sent home with antibiotics. Today she returns because of positive blood culture 2/4 bottles, 1 draw, for GPCs. In the ED workup was done, vitals notable for afebrile, heart rate 100s, blood pressure 150s/70s. Sats 95% on room air. Labs reviewed by me and notable for WBC 8.2, hgb 12.3, plts 59. Na 133, creatinine 0.74. Bili 2.1, ast/alt 44/41. Procal 36.6. Chest xray negative for any acute process. CT abdomen/pelvis shows thickening in the colon possibly consistent with colitis. She was ordered for antibiotics and admitted for further treatment. Discharge Providers Provider Date of admission: 01/11/23 22:03 Discharge Date: 01/13/23 Primary care physician: Adela Ray PA-C Discharge provider: Crispin Mello MD Summary Hospital Course Discharge Diagnosis: 1. Acute diverticulitis descending colon 2. Thrombocytopenia 3. Chronic mildly elevated bilirubin 4. Positive blood culture for GPC, likely contaminant Hospital Course: Pt was admitted and started on Zosyn to treat probable diverticulitis and vancomycin (due to blood cx + for GPC). She is feeling much better and abdominal pain has resolved. Has been afebrile. The GPC from ER visit 01/10 still hasn't grown out 3 days later so it's likely a contaminant. Pt is being discharged on metronidazole and Cipro to treat diverticulitis. She had normal colonoscopy in 2 019 so doesn't need another one. Noted to have low platelets 54 - 61 range which was thought due to bone marrow stress. However, platelet count hasn't recovered with treating infection. Last CBC from 2019 indicated platelets in 100-150 range. She should have repeat CBC when sees PCP for hospital follow up and get referred to labor economics teacher if platelet counts are not recovering. Also, I verified with hematology lab that low platelets is not due to clumping. Status at Discharge Cognitive/behavioral status at discharge: oriented Functional status at discharge: independent ambulation Overall status at discharge: patient is progressing back to baseline Time Spent with Patient Time spent: Greater than 30 minutes Exam Vital Signs (past 8 hours): - 01/13/23 07:30 Temperature 98.0 F Pulse Rate 78 Respiratory Rate 18 Blood Pressure 150/79 H Pulse Oximetry 97 Oxygen Flow Rate 0 Oxygen Delivery Method Room Air Oxygen Flow Rate 0 Narrative Exam Narrative: Gen: alert, NAD Lungs: clear Abd: soft, nt Ext: no edema Neuro: nl affect and speech Objective Labs 01/13/23 05:55 01/13/23 05:55 Labs: Laboratory Results - last 24 hr 01/12/23 01/13/23 01/13/23 14:32 05:55 05:55 WBC 4.7 RBC 3.86 L Hgb 12.3 Hct 35.9 L MCV 93.0 MCH 32.0 MCHC 34.4 RDW 13.1 Plt Count 54 L Neut % (Auto) 68.5 Lymph % (Auto) 18.9 L [place] % (Auto) 7.6 Eos % (Auto) 4.3 H Baso % (Auto) 0.7 Neut # (Auto) 3200 Lymph # (Auto) 900 L [place] # (Auto) 400 Eos # (Auto) 200 Baso # (Auto) 0 Sodium Potassium Chloride Carbon Dioxide BUN Creatinine Estimated GFR BUN/Creatinine Ratio Glucose Calcium Magnesium 2.0 Total Bilirubin AST ALT Alkaline Phosphatase Troponin I < 0.012 Total Protein Albumin Globulin Albumin/Globulin Ratio Procalcitonin Vancomycin Trough 01/13/23 01/13/23 05:55 09:18 WBC RBC Hgb Hct MCV MCH MCHC RDW Plt Count Neut % (Auto) Lymph % (Auto) [place] % (Auto) Eos % (Auto) Baso % (Auto) Neut # (Auto) Lymph # (Auto) [place] # (Auto) Eos # (Auto) Baso # (Auto) Sodium 138 Potassium 3.7 Chloride 111 H Carbon Dioxide 22 BUN 6 L Creatinine 0.65 Estimated GFR > 60 BUN/Creatinine Ratio 9.2 Glucose 90 Calcium 8.2 L Magnesium Total Bilirubin 1.3 AST 30 ALT 33 Alkaline Phosphatase 66 Troponin I Total Protein 5.9 L Albumin 3.1 L Globulin 2.8 Albumin/Globulin Ratio 1.1 Procalcitonin 16.0 H Vancomycin Trough 9.2 L PFSH Medical History Chronic low back pain DDD (degenerative disc disease) Hearing loss Heartburn HLD (hyperlipidemia) Hypothyroid Macular degeneration of both eyes Osteoarthritis Seasonal allergies Surgical History History of colonoscopy History of surgery on arm Hx of bilateral cataract extraction (~2012) Hx of hemorrhoidectomy (~1976) Hx of knee surgery (~1959) S/P epidural steroid injection Social History household members: none Smoking Status: Former smoker alcohol intake: current Discharge Plan Discharge Plan Patient Disposition: Home Provider Discharge Comment: You were treated for acute diverticulitis. Continue on prior Cipro prescription and start on metronidazole. Seek medical attention for fevers, chills, or new/increased abdominal pain. Follow up with PCP on low platelet counts. The previous blood count records are from March 2020 so it's unclear if platelet count has been gradually dropping since then or platelets are low due to infection causing bone marrow stress. Either way, you should have CBC rechecked when you see your PCP for hospital follow-up. Discharge orders & Medications Prescriptions: New metronidazole 500 mg tablet 500 mg PO Q8H 5 Days Qty: 15 0RF Continued PreserVision AREDS-2 [id number] Capsule 1 tab PO BID atorvastatin 40 mg Tablet 40 mg PO DAILY ciprofloxacin HCl [Cipro] 500 mg tablet 500 mg PO BID Qty: 10 0RF levothyroxine 88 mcg tablet 88 mcg PO DAILY Patient Comments: TAKE 1 TABLET BY MOUTH DAILY Follow up/Referrals: Adela Ray PA-C [Primary Care Provider] - Diet/Activity/Treatments Diet: Diet as Tolerated Skin/Wound/Dressing Care Report to your healthcare provider any signs of infection, such as:: chills, fever and increased pain Visit Report/Discharge Packet Stand Alone Forms: Patient Portal/API, Stroke Signs & Symptoms Discharge Data Primary Care Provider: Adela Ray
== END 2023-01-13 13:18 | disposition home or self-care (01) | DRG 872 ==
LOC: ED 20:34 → AC 22:25
PROVIDERS: Internal Medicine; Admitting Provider Internal Medicine; Emergency Provider Emergency Medicine; Family Provider Physician Assistant; PCP Physician Assistant; Referring Provider Emergency Medicine; Visit Provider Internal Medicine
DX: A41.9 Sepsis, unspecified organism (principal); K57.32 Diverticulitis of large intestine without perforation or abscess without bleeding; N39.0 Urinary tract infection, site not specified; E03.9 Hypothyroidism, unspecified; D69.6 Thrombocytopenia, unspecified; E87.5 Hyperkalemia; E80.6 Other disorders of bilirubin metabolism; Z87.891 Personal history of nicotine dependence; Z66 Do not resuscitate; Z20.822 Contact with and (suspected) exposure to COVID-19; R10.9 Unspecified abdominal pain; R68.83 Chills (without fever)
CPT/HCPCS: 36415; 71045; 74177; 80048; 80053; 80202; 81001; 82550; 83605; 83690; 83735; 84145; 84484; 85025; 85610; 85730; 87040; 87077; 87086; 87186; 87633; 93005; 93010; 96365; 96366; 96375; 99284; J0696; J1956; J2405; J2543; Q9967

== ENCOUNTER → 2023-04-08 11:49 | Outpatient (CLI) | payer MEDICARE, SELFPAY ==
[2023-01-11 22:25] VITALS: BMI 25.8
[2023-04-08 13:16] LABS: Bilirubin Total 1.9 mg/dL (0.2-1.3)
== END ==
PROVIDERS: Family Provider Physician Assistant; PCP Physician Assistant; Referring Provider Internal Medicine Cardiovascular Disease; Visit Provider Internal Medicine Cardiovascular Disease
DX: R17 Unspecified jaundice (principal)
CPT/HCPCS: 36415; 82247; 82248

== ENCOUNTER 2023-04-15 15:04 | Observation (INO) | payer MEDICARE, SELFPAY ==
[2023-01-11 22:25] VITALS: BMI 25.8
[2023-04-15 15:10] VITALS: BP 144/101; PULSE 87; RESP 16; TEMP 36.6; O2SAT 98; BMI 27.6
--- NOTE | 2023-04-15 15:13 | DI.RAD.S_ITS ---
PROCEDURE: XR CHEST 1V INDICATIONS: chest pain TECHNIQUE: One view of the chest was acquired. COMPARISON: [facility], CR, XR CHEST 1V, 01/10/2023, 19:47. FINDINGS: Surgical changes and devices: None. Lungs and pleura: Lungs are clear. No pleural effusions or pneumothorax. Mediastinum: Mediastinal contours appear normal. Heart size is normal. Bones and chest wall: No suspicious bony lesions. Overlying soft tissues appear unremarkable. IMPRESSION: Portable chest within normal limits for age. Dictated by: Chema Gonzalez M.D. on 04/15/2023 at 15:31 Approved by: Chema Goznalez M.D. on 04/15/2023 at 15:31
[2023-04-15 15:34] LABS: Add Manual Diff / Slide Review NO; Basophils Absolute Auto 0 /uL (0-100); Basophils Percent Auto 0.5 % (0-2); Eosinophils Absolute Auto 100 /uL (0-450); Eosinophils Percent Auto 1.4 % (2-4); Hematocrit 41.6 % (36-46); Hemoglobin 14.2 g/dL (12.0-16.0); Lymphocytes Absolute Auto 1300 /uL (1100-4500); Lymphocytes Percent Auto 16.8 % (25-40); Mean Corpuscular HGB Conc 34.2 % (30-36); Mean Corpuscular Hemoglobin 30.3 PG (26-34); Mean Corpuscular Volume 88.7 fL (80-100); Monocytes Absolute Auto 400 /uL (0-900); Neutrophils Absolute Auto 5800 /uL (1500-7000); Neutrophils Percent Auto 76.3 % (50-75); Platelet Count 144 X10^3/uL (150-400); Red Blood Cell Count 4.69 X10^6/uL (4.0-5.2); White Blood Cell Count 7.6 X10^3/uL (4.5-11.0)
[2023-04-15 15:44] LABS: PTT Partial Thromboplastin Tim 31 SECONDS (26-36)
[2023-04-15 16:02] LABS: Alanine Aminotransferase 24 IU/L (<35); Albumin 4.2 g/dL (3.5-5.0); Albumin Globulin Ratio 1.3 (1.0-2.8); Alkaline Phosphatase 66 U/L (38-126); Aspartate Aminotransferase 26 IU/L (14-36); BUN Creatinine Ratio 18.6 (6-22); Bilirubin Total 1.8 mg/dL (0.2-1.3); Blood Urea Nitrogen 13 mg/dL (7-17); Calcium 9.7 mg/dL (8.4-10.2); Carbon Dioxide 25 mmol/L (22-32); Chloride 104 mmol/L (98-107); Creatine Kinase 40 U/L (30-135); Estimated Glomerular Filt Rate > 60 mL/min (>60); Globulin 3.3 g/dL (1.7-4.1); Glucose 104 mg/dL (80-110); HEMOLYSIS < 15 (0-50); Lipase 214 U/L (23-300); Magnesium 1.8 mg/dL (1.6-2.3); Potassium 3.7 mmol/L (3.4-5.1); Sodium 136 mmol/L (137-145); Total Protein 7.5 g/dL (6.3-8.2)
[2023-04-15 16:13] LABS: Troponin I < 0.012 ng/mL (0.01-0.034)
--- NOTE | 2023-04-15 16:41 | ED_ITS ---
HPI - Chest Pain General Chief Complaint: Chest Pain Stated Complaint: serious chest pains Time Seen by Provider: 04/15/23 16:24 Source: patient Mode of arrival: Wheelchair History of Present Illness HPI narrative: Patient brought here by friend. Neighbor. Complained of substernal chest pain radiating to her back today. Patient had mid back pain yesterday while doing exercises. Patient seen by armament installer last week for abnormal EKG, dr mayorga, she is scheduled for echocardiogram and stress test next week. Patient denies any shortness of breath nausea or sweating. Patient in no distress at this time Related Data Home Medications Medication Instructions Recorded Confirmed atorvastatin 40 mg tablet 40 mg PO DAILY 03/28/20 04/15/23 vit C 250 mg-vit E 90 mg-zinc 40 1 tab PO BID 03/28/20 04/15/23 mg-copper 1 [id number] capsule (PreserVision AREDS-2) levothyroxine 88 mcg tablet 88 mcg PO DAILY 01/11/23 04/15/23 Previous Rx's Medication Instructions Recorded hydrocodone 5 mg-acetaminophen 325 1 tab PO Q4HR PRN Pain, Moderate 04/16/23 mg tablet (4-6) #20 tabs lidocaine 5 % topical patch 1 patch topical DAILY #15 ea 04/16/23 (Lidoderm) Allergies Allergy/AdvReac Type Severity Reaction Status Date / Time penicillin G [PENICILLIN G] Allergy Severe Anaphylaxis Verified 04/16/23 15:10 Sulfa (Sulfonamide Allergy Severe Anaphylaxis Verified 04/16/23 15:10 Antibiotics) [SULFA (SULFONAMIDE ANTIBIOTICS)] codeine AdvReac Severe Nausea, Verified 01/11/23 19:17 vomiting Review of Systems Review of Systems Narrative: GENERAL: negative chills, fatigue, malaise, fever, sweats. HEENT: negative sinus pain, ear pain, sore throat RESPIRATORY: negative dyspnea, cough CARDIOVASCULAR: Positive chest pain, negative palpitations GASTROINTESTINAL: negative nausea, vomiting, abdominal pain : negative dysuria, frequency, hematuria MUSCULOSKELETAL: negative muscle or bony pain SKIN: negative rash, skin lesions NEUROLOGIC: negative weakness, numbness ROS Unobtainable: All systems reviewed & are unremarkable except as noted in HPI and below Patient History Medical History (Updated 04/15/23 @ 16:53 by Robby Espinosa MD) DDD (degenerative disc disease) Chronic low back pain Osteoarthritis Heartburn Hearing loss Macular degeneration of both eyes Seasonal allergies Hypothyroid HLD (hyperlipidemia) Surgical History S/P epidural steroid injection Hx of bilateral cataract extraction (~2012) History of surgery on arm Hx of hemorrhoidectomy (~1976) Hx of knee surgery (~1959) History of colonoscopy Social History household members: none Smoking Status: Former smoker alcohol intake: current Smoking Status: Former smoker alcohol intake frequency: 0-2 drinks per day Substance Use Type: does not use Exam Narrative Exam Narrative: GENERAL: in no distress, not toxic not dyspneic HEAD: Normocephalic. EYES: Pupils equal round ENT: Mucous membranes moist. NECK: Trachea midline. CARDIOVASCULAR: Regular rate and rhythm RESPIRATORY: Clear to auscultation. Breath sounds equal bilaterally. No wheezes, rales, or rhonchi. GASTROINTESTINAL: Abdomen soft, non-tender EXTREMITIES: No gross deformities. BACK: No flank tenderness. NEURO: AOx4. SKIN: Warm and dry PSYCH: Not anxious, is cooperative Initial Vital Signs Initial Vital Signs: Vital Signs Temperature 97.8 F 04/15/23 15:10 Pulse Rate 87 04/15/23 15:10 Respiratory Rate 16 04/15/23 15:10 Blood Pressure 144/101 H 04/15/23 15:10 Pulse Oximetry 98 04/15/23 15:10 Oxygen Delivery Method Room Air 04/15/23 15:10 Course Orders Ordered: Discontinued Medications Acetaminophen (Acetaminophen 325 Mg Tablet) 650 mg PO Q6H PRN PRN Reason: Fever/Mild Pain (1-3) Hydrocodone Bitart/Acetaminophen (Hydrocodone/Acet 10/325 Tablet) 1 tab PO Q4HR PRN PRN Reason: Pain, Moderate (4-6) Last Admin: 04/15/23 20:35 Dose: 1 tab Documented By: KAREN Hydrocodone Bitart/Acetaminophen (Hydrocodone/Acet 5/325 Tablet) 1 tab PO Q4HR PRN PRN Reason: Pain, Moderate (4-6) Last Admin: 04/16/23 09:26 Dose: 1 tab Documented By: DINO Aspirin (Aspirin 81 Mg Chew Tab) 324 mg PO NOW ONE Stop: 04/15/23 16:42 Last Admin: 04/15/23 17:35 Dose: Not Given Documented By: AMV Atorvastatin Calcium (Atorvastatin 20 Mg Tablet) 40 mg PO BEDTIME [facility] Calcium Carbonate (Calcium Carbonate 500 Mg Tab) 1,000 mg PO Q4HR PRN PRN Reason: Dyspepsia Heparin Sodium (Porcine) (Heparin 5,000 Unit/Ml Vial) 5,000 unit SUBCUT BID [facility] Last Admin: 04/16/23 08:52 Dose: 5,000 unit Documented By: Admin: 04/15/23 20:15 Dose: 5,000 unit Documented By: KAREN Dextrose/Sodium Chloride (Dextrose 5%-0.9% Ns) 1,000 mls @ 100 mls/hr IV CONT [facility] Last Admin: 04/16/23 07:03 Dose: 100 mls/hr Documented By: Infusion: 04/16/23 06:28 Dose: Infused Documented By: Admin: 04/15/23 20:28 Dose: 100 mls/hr Documented By: KAREN Magnesium Hydroxide (Magnesium Hydroxide 30 Ml Udc) 30 ml PO DAILY PRN PRN Reason: Constipation Morphine Sulfate (Morphine 2 Mg/Ml Inj) 2 mg IV Q5MIN PRN PRN Reason: Chest Pain Naloxone HCl (Naloxone 0.4 Mg/Ml Vial) 0.2 mg IV Q2MIN PRN PRN Reason: Opiate Reversal Nitroglycerin (Nitroglycerin 0.4 Mg Sl Tab) 0.4 mg SL [id number] PRN PRN Reason: Chest Pain Vital Signs Vital signs: Vital Signs - 8 hr 04/15/23 15:10 Temperature 97.8 F Pulse Rate 87 Respiratory Rate 16 Blood Pressure 144/101 H Pulse Oximetry 98 Oxygen Delivery Method Room Air MDM - Chest Pain Lab Data 04/16/23 04:15 04/16/23 04:15 Labs: Lab Results 04/15/23 04/15/23 Range/Units 15:13 15:36 WBC 7.6 (4.5-11.0) X10^3/uL RBC 4.69 (4.0-5.2) X10^6/uL Hgb 14.2 (12.0-16.0) g/dL Hct 41.6 (36-46) % MCV 88.7 (80-100) fL MCH 30.3 (26-34) PG MCHC 34.2 (30-36) % RDW 13.0 (11.6-14.8) % Plt Count 144 L (150-400) X10^3/uL Neut % (Auto) 76.3 H (50-75) % Lymph % (Auto) 16.8 L (25-40) % [place] % (Auto) 5.0 (3-14) % Eos % (Auto) 1.4 L (2-4) % Baso % (Auto) 0.5 (0-2) % Neut # (Auto) 5800 (2803-6827) /uL Lymph # (Auto) 1300 (0968-7798) /uL [place] # (Auto) 400 (0-900) /uL Eos # (Auto) 100 (0-450) /uL Baso # (Auto) 0 (0-100) /uL PT 12.0 (10.1-12.7) SECONDS INR 1.0 (0.9-1.3) APTT 31 (26-36) SECONDS Sodium 136 L (137-145) mmol/L Potassium 3.7 (3.4-5.1) mmol/L Chloride 104 (98-107) mmol/L Carbon Dioxide 25 (22-32) mmol/L BUN 13 (7-17) mg/dL Creatinine 0.70 (0.52-1.04) mg/dL Estimated GFR > 60 (>60) mL/min BUN/Creatinine Ratio 18.6 (6-22) Glucose 104 (80-110) mg/dL Calcium 9.7 (8.4-10.2) mg/dL Magnesium 1.8 (1.6-2.3) mg/dL Total Bilirubin 1.8 H (0.2-1.3) mg/dL AST 26 (14-36) IU/L ALT 24 (<35) IU/L Alkaline Phosphatase 66 (38-126) U/L Total Creatine Kinase 40 (30-135) U/L Troponin I < 0.012 (0.01-0.034) ng/mL Total Protein 7.5 (6.3-8.2) g/dL Albumin 4.2 (3.5-5.0) g/dL Globulin 3.3 (1.7-4.1) g/dL Albumin/Globulin Ratio 1.3 (1.0-2.8) Lipase 214 (23-300) U/L Imaging Data Chest x-ray: Radiologist's Impression: [address] [address] XRay Report Signed Patient: Marcia Mayo MR#: [id number] : 1940 Acct:[id number] Age/Sex: 83 / F Date of Service: 04/15/23 Loc: ED Accession Number: [id number] ?? Procedure: XR chest 1V Ordering Provider: Robby Espinosa MD PROCEDURE:? XR CHEST 1V ? INDICATIONS:? chest pain ? TECHNIQUE:? One view of the chest was acquired.? ? COMPARISON:? [facility], CR, XR CHEST 1V, 01/10/2023, 19:47. ? FINDINGS:? ? Surgical changes and devices:? None.? ? Lungs and pleura:? Lungs are clear.? No pleural effusions or pneumothorax.? ? Mediastinum:? Mediastinal contours appear normal.? Heart size is normal.? ? Bones and chest wall:? No suspicious bony lesions.? Overlying soft tissues appear unremarkable.? ? ? IMPRESSION:? Portable chest within normal limits for age. ? ? Dictated by: Chema Gonzalez M.D. on 04/15/2023 at 15:31 ? ? Approved by: Chema Gonzalez M.D. on 04/15/2023 at 15:31 ? [facility] Narrative Medical decision making narrative: Patient brought here by friend. Neighbor. Complained of substernal chest pain radiating to her back today. Patient had mid back pain yesterday while doing exercises. Patient seen by armament installer last week for abnormal EKG, dr mayorga, she is scheduled for echocardiogram and stress test next week. Patient denies any shortness of breath nausea or sweating. Patient in no distress at this time After history and exam CBC CMP troponin EKG chest x-ray aspirin MDM CC: Chest pain Complicating co-morbidities: Hypercholesteremia Data collected from: Patient Medical records reviewed: No recent visit here for this complaint Differential considered: Includes but not limited to STEMI non-STEMI stable angina unstable angina pleurisy costochondritis Exam documented above, pertinent findings include: Nontender chest Lab Test results independently reviewed as above. Pertinent findings: Hemoglobin 14.2 hematocrit 41.6 sodium 136 potassium 3.7 troponin less than 0.012 Independently reviewed EKG normal sinus rhythm normal EKG rate [address] elevation or depression Imaging studies independently reviewed: Chest x-ray no acute finding Consultations: 4:48 p.m.. Spoke with patient's armament installer dr mayorga, would like patient admitted here for stress test and echocardiogram tomorrow 4:[address] Ac, hospitalist, who will admit patient Treatments: Aspirin Re-evaluations: Reviewed results with patient agrees for admission. Currently chest pain-free. Discussion: Appropriate for admission for balance or workup for chest pain including echocardiogram and stress test. Patient currently chest pain-free agrees for admission Diagnosis: Acute chest pain Discharge Plan Departure Patient Disposition: Admitted as Observation Clinical Impression: Chest pain Admit Date/Time: 04/15/23 17:36 Admit Provider: Crispin Ac
--- NOTE | 2023-04-15 18:11 | PM.HP.1 ---
History of Present Illness History of Present Illness Date Patient Seen: 04/15/23 Time Patient Seen: 18:11 Chief complaint: serious chest pains Narrative: Patient presents to the hospital with chest pain. She was brought by her friend.. She described this as substernal pain which radiates to her back but not neck or arm not have a strong history of exertional chest emergency department doctor notes that she was seen by her combine driver last week who had scheduled her for an echocardiogram and stress test next week. The patient denies any associated symptoms with her pain including nausea, diaphoresis or dyspnea. She notes that she had some pain yesterday while doing stretches. The pain then came back again today she describes this as being in the front and below the ribcage. She have chronic dyspepsia but notes worse than usual. Movement and deep breathing did make the pain worse today. She has no known history of coronary artery disease, or angina. This is a past history of hypothyroidism. [facility] Medical History (Updated 04/15/23 @ 16:53 by Robby Espinosa MD) Chronic low back pain DDD (degenerative disc disease) Hearing loss Heartburn HLD (hyperlipidemia) Hypothyroid Macular degeneration of both eyes Osteoarthritis Seasonal allergies Surgical History History of colonoscopy History of surgery on arm Hx of bilateral cataract extraction (~2012) Hx of hemorrhoidectomy (~1976) Hx of knee surgery (~1959) S/P epidural steroid injection Social History household members: none Smoking Status: Former smoker alcohol intake: current Meds Home Medications and Allergies Home Medications Medication Instructions Recorded Confirmed Type atorvastatin 40 mg tablet 40 mg PO DAILY 03/28/20 04/15/23 History vit C 250 mg-vit E 90 mg-zinc 40 1 tab PO BID 03/28/20 04/15/23 History mg-copper 1 [id number] capsule (PreserVision AREDS-2) levothyroxine 88 mcg tablet 88 mcg PO DAILY 01/11/23 04/15/23 History Allergies Allergy/AdvReac Type Severity Reaction Status Date / Time penicillin G [PENICILLIN G] Allergy Intermediate Swelling Verified 01/11/23 19:17 at injection Sulfa (Sulfonamide Allergy Intermediate Childhood Verified 01/11/23 19:17 Antibiotics) I almost [SULFA (SULFONAMIDE ANTIBIOTICS)] codeine AdvReac Severe Nausea, Verified 01/11/23 19:17 vomiting Review of Systems Review of Systems Narrative: All else reviewed and otherwise unremarkable except as noted on the H&P. Exam Vital Signs (past 8 hours): - 04/15/23 15:10 Temperature 97.8 F Pulse Rate 87 Respiratory Rate 16 Blood Pressure 144/101 H Pulse Oximetry 98 Oxygen Delivery Method Room Air Oxygen Delivery Method Room Air Narrative Exam Narrative: The patient is awake and in NAD. Normal speech and mentation. Normal judgement, and calm affect. Head is atraumatic and EOMI. Anicteric sclera. Oropharynx is moist. Neck is supple and trachea is midline. Lungs are CTA, with normal rate and effort. Heart is RRR, without murmur, gallop, or rub. There is some tenderness on the sternum anteriorly. Abdomen is soft, NT and ND. Extremities are with 1 + of edema. Good arm pulses. Good leg pulses. Skin is free of rash or lesions. Joints are free of swelling or deformity. Back with normal ROM. Objective ECG Impression: Non acute. NSR. Imaging Chest x-ray: My impression: Clear Radiologist's impression: No acute findings. Labs 04/15/23 15:13 04/15/23 15:36 Labs: Laboratory Results - last 24 hr 04/15/23 04/15/23 04/15/23 15:13 15:36 15:36 WBC 7.6 RBC 4.69 Hgb 14.2 Hct 41.6 MCV 88.7 MCH 30.3 MCHC 34.2 RDW 13.0 Plt Count 144 L Neut % (Auto) 76.3 H Lymph % (Auto) 16.8 L [place] % (Auto) 5.0 Eos % (Auto) 1.4 L Baso % (Auto) 0.5 Neut # (Auto) 5800 Lymph # (Auto) 1300 [place] # (Auto) 400 Eos # (Auto) 100 Baso # (Auto) 0 PT 12.0 INR 1.0 APTT 31 Sodium 136 L Potassium 3.7 Chloride 104 Carbon Dioxide 25 BUN 13 Creatinine 0.70 Estimated GFR > 60 BUN/Creatinine Ratio 18.6 Glucose 104 Calcium 9.7 Magnesium 1.8 Total Bilirubin 1.8 H AST 26 ALT 24 Alkaline Phosphatase 66 Total Creatine Kinase 40 Troponin I < 0.012 Total Protein 7.5 Albumin 4.2 Globulin 3.3 Albumin/Globulin Ratio 1.3 Lipase 214 Assessment & Plan Assessment & Plan narrative: 1. Chest pain, POA and active. -serial troponins, ECHO and stress test. 2. Hypothyroid, POA and stable -continue usual medication. Full code. Time Spent With Patient Time with patient: 30 to 49 minutes with 50% spent counseling/coordinating care Quality MIPS - Admit I confirm the patient?s Advance Care Plan is present, Code status is documented, Surrogate decision maker is in patient?s record [If Yes, STOP here]: Yes
[2023-04-15 18:32] VITALS: BMI 27.4
[2023-04-15 19:15] LABS: Troponin I < 0.012 ng/mL (0.01-0.034)
[2023-04-15 20:00] VITALS: BP 158/72; PULSE 85; RESP 19; TEMP 37.1; O2SAT 96
[2023-04-15] MEDS: HEPARIN 5,000 UNIT/ML VIAL 5000 UNIT SUBCUT (20:15)
[2023-04-15] MEDS: DEXTROSE 5%-0.9% NS 1,000 ML 100 ML IV (20:28)
[2023-04-15] MEDS: HYDROCODONE/ACET 10/325 TABLET 1 TAB PO (20:35)
[2023-04-16 00:24] VITALS: BP 124/63; PULSE 73; RESP 18; TEMP 36.6; O2SAT 98
[2023-04-16 05:02] LABS: BUN Creatinine Ratio 21.3 (6-22); Blood Urea Nitrogen 13 mg/dL (7-17); Calcium 8.5 mg/dL (8.4-10.2); Carbon Dioxide 23 mmol/L (22-32); Chloride 105 mmol/L (98-107); Estimated Glomerular Filt Rate > 60 mL/min (>60); Glucose 146 mg/dL (80-110); HEMOLYSIS < 15 (0-50); Potassium 3.7 mmol/L (3.4-5.1); Sodium 135 mmol/L (137-145)
[2023-04-16 06:04] LABS: Basophils Absolute Auto 0 /uL (0-100); Basophils Percent Auto 0.4 % (0-2); Eosinophils Absolute Auto 100 /uL (0-450); Hematocrit 37.5 % (36-46); Hemoglobin 12.7 g/dL (12.0-16.0); Lymphocytes Absolute Auto 800 /uL (1100-4500); Lymphocytes Percent Auto 10.1 % (25-40); Mean Corpuscular HGB Conc 33.8 % (30-36); Mean Corpuscular Hemoglobin 30.3 PG (26-34); Mean Corpuscular Volume 89.7 fL (80-100); Monocytes Absolute Auto 400 /uL (0-900); Monocytes Percent Auto 5.7 % (3-14); Neutrophils Absolute Auto 6300 /uL (1500-7000); Neutrophils Percent Auto 82.8 % (50-75); Red Blood Cell Count 4.19 X10^6/uL (4.0-5.2); Red Cell Distribution Width 13.3 % (11.6-14.8); White Blood Cell Count 7.6 X10^3/uL (4.5-11.0)
[2023-04-16 06:06] LABS: Add Manual Diff / Slide Review SLIDE REVIEW
[2023-04-16 06:19] LABS: Platelet Estimate Decreased on smear; RBC Morphology Normal Morphology
[2023-04-16 06:22] VITALS: BP 153/77; PULSE 80; RESP 17; TEMP 36.6; O2SAT 96
[2023-04-16] MEDS: DEXTROSE 5%-0.9% NS 1,000 ML 100 ML IV (07:03)
[2023-04-16 07:52] VITALS: BP 149/76; PULSE 66; RESP 18; O2SAT 99
[2023-04-16] MEDS: HEPARIN 5,000 UNIT/ML VIAL 5000 UNIT SUBCUT (08:52)
[2023-04-16] MEDS: HYDROCODONE/ACET 5/325 TABLET 1 TAB PO (09:26)
--- NOTE | 2023-04-16 11:11 | DI.ECHO.S_ITS ---
[facility]---------+ [facility] +---------+ : : [address] : : : : [id number] : : : : Phone: [phone]+ Echocardiogram Report + + :Name: CÉSAR GARCIA Study Date: 04/16/2023 Height: 66 in : :[facility] ReadingLocation: Weight: 170 lb : : Gender: Female BSA: 1.9 m2 : :: 1940 Age: 83 yrs BP: 124/63 mmHg: :Reason For Study: CHEST PAIN : :Ordering Physician: RODRIGO, : :SAE Soriano DO Performed By: Terra Stokes : :Referring: SAE WALLACE DO : + + Interpretation Summary The left ventricle is normal in size and wall thickness. Left ventricular systolic function appears normal without focal wall motion abnormalities. The ejection fraction is estimated to be 60-65%. The right ventricle is normal in size and function. Procedure: Images were not obtained from all of the standard acoustic windows due to the limited scope of the study. The study quality was technically adequate. There is no prior echocardiogram noted for this patient. The patient was in sinus rhythm with heart rates between 69-82 bpm during the exam. Left Ventricle: The left ventricle is normal in size and wall thickness. Left ventricular systolic function appears normal without focal wall motion abnormalities. The ejection fraction is estimated to be 60-65%. Right Ventricle: The right ventricle is normal in size and function. Atria: The left atrial size is normal. Right atrial size is normal. Great Vessels: The IVC is of normal diameter and collapses greater than 50% with a sniff. This suggests a low right atrial pressure of 3 mm Hg. Pericardium/ Pleura There is no pericardial effusion. There is no pleural effusion. MMode/2D Measurements & Calculations LVIDd: 4.2 cm LA A2 area: 15.7 cm2 LVIDs: 2.7 cm LA A4 area: 18.9 cm2 FS: 35.9 % LA length (vol): 5.5 cm EPSS: 0.68 cm LA vol: 45.6 ml IVSd: 0.84 cm LA vol index: 24.4 ml/m2 LVPWd: 0.63 cm LV sal. diameter/BSA (cm/m^2): 2.3 LV sys. diameter/BSA (cm/m^2): 1.5 RA long axis: 4.8 cm RVD1 (basal): 3.8 cm RA area: 14.8 cm2 TAPSE: 2.3 cm RA vol: 38.9 ml RA : 20.8 ml/m2 IVC diam: 1.5 cm Reading Physician:02:57 PM
--- NOTE | 2023-04-16 13:12 | CM.DANOTE ---
Initial DCP Assessment Note Pt is an 83 yo female, resident of [place], arrives with chest pain, admitted for stress test and echo. According to discussion in multidisciplinary rounds, patient is likely to discharge today pending results of stress test and echo. PCP: Adela Ray Payer: DARREN/MERRILLP Reviewed chart, met w/patient to introduce self and role. Patient lives alone in a condo, indp in all aspects, drives. Patient expects to return home, daughter Chey available to assist as needed. 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 No barriers identified at this time to patient's safe discharge home w/family to assist; close outpatient f/u recommended. CM team will plan to follow closely in case any DC needs or concerns arise. DENISE Jacques Discharge Planning/Care Management CM Discharge Assessment Start: 04/16/23 13:02 Freq: Status: Active Protocol: Document 04/16/23 13:02 CHANTEL (Rec: 04/16/23 13:12 CHANTEL [id number]) Discharge Planning Assessment Assigned Legal Support Manager DENISE Williamson DPELISE/Assigned Designee Name Chey Raines, daughter/DPOA Contact Information [phone], Advance Directives? Yes: POLST Advance Directives on File No History Provided By Patient,Medical Record Prior Living Arrangements Apartment/Condo Household Members none Type of transportation used prior to Drives own vehicle admit Independent with ADL's Yes Is patient alert and oriented? Yes Comment uses a cane as needed Patient/Family Preference OP PT Therapy Barriers to Discharge No Discharge Plan Home Transportation Arrangement either daughter or NAYELI will transport home Referrals Initiated None needed Whiteboard Updated in Patient Room with Yes name and ext. # of Legal Support Manager Comment Goal for discharge is home w/ family, expected DOD today or tomorrow
[2023-04-16 15:00] VITALS: BP 145/62; PULSE 55; RESP 16; TEMP 36.2; O2SAT 97
--- NOTE | 2023-04-16 17:52 | PM.DS.1 ---
History of Present Illness History of Present Illness Date Patient Seen: 04/15/23 Time Patient Seen: 18:11 Chief complaint: serious chest pains Narrative: Patient presents to the hospital with chest pain. She was brought by her friend.. She described this as substernal pain which radiates to her back but not neck or arm not have a strong history of exertional chest emergency department doctor notes that she was seen by her manager media last week who had scheduled her for an echocardiogram and stress test next week. The patient denies any associated symptoms with her pain including nausea, diaphoresis or dyspnea. She notes that she had some pain yesterday while doing stretches. The pain then came back again today she describes this as being in the front and below the ribcage. She have chronic dyspepsia but notes worse than usual. Movement and deep breathing did make the pain worse today. She has no known history of coronary artery disease, or angina. This is a past history of hypothyroidism. Discharge Providers Provider Date of admission: 04/15/23 17:36 Discharge Date: 04/16/23 Primary care physician: Adela Ray PA-C Discharge provider: Young Batista DO Summary Hospital Course Discharge Diagnosis: 1. Chest pain, POA and active. -serial troponins negative, ECHO and stress test reassuring and normal EF, no WMA and low-risk stress -chest pain likely intercostal due to costochondritis -given script for pain meds and lidoderm patches 2. Hypothyroid, POA and stable -continue usual medication. Hospital Course: Admitted for CP rule out. Echo, EKG, stress and trops normal. Likely costochondritis. Given pain meds and lidoderm patches for this and discharged to f/up with her manager media Dr. Loera. Exam Vital Signs (past 8 hours): - 04/16/23 15:00 Temperature 97.2 F L Pulse Rate 55 L Respiratory Rate 16 Blood Pressure 145/62 H Pulse Oximetry 97 Oxygen Flow Rate 0 Oxygen Delivery Method Room Air Oxygen Flow Rate 0 Narrative Exam Narrative: The patient is awake and in NAD. Normal speech and mentation. Normal judgement, and calm affect. Head is atraumatic and EOMI. Anicteric sclera. Oropharynx is moist. Neck is supple and trachea is midline. Lungs are CTA, with normal rate and effort. Heart is RRR, without murmur, gallop, or rub. There is some tenderness on the sternum anteriorly. Abdomen is soft, NT and ND. Extremities are with 1 + of edema. Good arm pulses. Good leg pulses. Skin is free of rash or lesions. Joints are free of swelling or deformity. Back with normal ROM. Objective Labs 04/16/23 04:15 04/16/23 04:15 Labs: Laboratory Results - last 24 hr 04/15/23 04/16/23 04/16/23 18:46 04:15 04:15 WBC 7.6 RBC 4.19 Hgb 12.7 Hct 37.5 MCV 89.7 MCH 30.3 MCHC 33.8 RDW 13.3 Plt Count TNP Neut % (Auto) 82.8 H Lymph % (Auto) 10.1 L Evangeline % (Auto) 5.7 Eos % (Auto) 1.0 L Baso % (Auto) 0.4 Neut # (Auto) 6300 Lymph # (Auto) 800 L Evangeline # (Auto) 400 Eos # (Auto) 100 Baso # (Auto) 0 Platelet Estimate Decreased on smear RBC Morphology Normal morphology Sodium 135 L Potassium 3.7 Chloride 105 Carbon Dioxide 23 BUN 13 Creatinine 0.61 Estimated GFR > 60 BUN/Creatinine Ratio 21.3 Glucose 146 H Calcium 8.5 Troponin I < 0.012 [facility] Medical History (Updated 04/15/23 @ 16:53 by Robby Espinosa MD) Chronic low back pain DDD (degenerative disc disease) Hearing loss Heartburn HLD (hyperlipidemia) Hypothyroid Macular degeneration of both eyes Osteoarthritis Seasonal allergies Surgical History History of colonoscopy History of surgery on arm Hx of bilateral cataract extraction (~2012) Hx of hemorrhoidectomy (~1976) Hx of knee surgery (~1959) S/P epidural steroid injection Social History household members: none Smoking Status: Former smoker alcohol intake: current Discharge Plan Discharge Plan Patient Disposition: Home Provider Discharge Comment: Your cardiac workup was reassuring and your chest pain is likely not from your heart. Discharge orders & Medications Prescriptions: New hydrocodone-acetaminophen 5-325 mg Tablet 1 tab PO Q4HR PRN (Reason: Pain, Moderate (4-6)) Qty: 20 0RF lidocaine [Lidoderm] 5 % adhesive patch,medicated 1 patch topical DAILY Qty: 15 0RF Rx Instructions: leave on most painful area for up to 12 hrs Continued PreserVision AREDS-2 [id number] [id number]-mg Capsule 1 tab PO BID atorvastatin 40 mg Tablet 40 mg PO DAILY levothyroxine 88 mcg tablet 88 mcg PO DAILY Patient Comments: TAKE 1 TABLET BY MOUTH DAILY Follow up/Referrals: Adela Ray PA-C [Primary Care Provider] - 2 Weeks Other Ambulatory Orders: Referral to: (Schedule) Timeframe: 1 Week Location: Determined by Patient Ordered By: Young Batista Visit Report/Discharge Packet Instructions: DI for Prescription Opioid Use Stand Alone Forms: Congestive Heart Failure, Patient Portal/API, Stroke Signs & Symptoms Discharge Data Primary Care Provider: Adela Ray Attending Provider: Crispin Ac Admit Date/Time: 04/15/23 17:36 Discharges patient from system. Discharge Date/Time: 04/16/23 18:20 Quality VTE Deep Vein Thrombosis/Pulmonary Embolism Present on Admission: No
[2023-04-16 18:01] LABS: Cholesterol 136 mg/dL (140-199); HDL Cholesterol 52 mg/dL (40-60); LDL Cholesterol Calculated 63 mg/dL (<100); Triglycerides 107 mg/dL (35-150)
[2023-04-16 18:03] LABS: Hemoglobin A1C% w Est Avg Glu 4.9 % (4.0-6.0)
--- NOTE | 2023-04-16 20:11 | DI.NM.S_ITS ---
DATE OF SERVICE: 04/16/2023 PROCEDURE: Pharmacological perfusion study. INDICATIONS: Chest pain with underlying hyperlipidemia. RADIOPHARMACEUTICAL: 27 millicurie technetium-99m Myoview IV was injected at stress and 11.9 millicurie technetium-99m Myoview IV was injected at rest. CARDIAC STRESS: The patient underwent IV Lexiscan perfusion study under the supervision of an attending staff as per standard protocol. The patient remained hemodynamically stable. Baseline rhythm sinus. During stress, no convincing ischemic changes seen. No significant arrhythmia. Had minimal dyspnea. No chest discomfort. Resting blood pressure 138/76. RAW DATA: There is a breast shadow seen. Increased subdiaphragmatic activity. GATED STUDY: Resting LV ejection fraction 85% and stress LV ejection fraction 96%. No obvious wall motion abnormalities. Resting end- diastolic volume 73 mL. TID ratio 0.90, which is within normal limits. Lung/heart ratio 0.35, which is within normal limits. MYOCARDIAL PERFUSION SCAN: Stress supine, resting supine and stress prone images were compared to each other. Stress supine, resting supine images revealed small size, mildly decreased perfusion of basal inferior lateral wall which got completely resolved during stress prone images, suggestive of tissue attenuation artifact. No convincing ischemia or infarction. CONCLUSION: I will call this study a normal myocardial perfusion study with evidence of tissue attenuation artifact, which got resolved during stress prone images. Stress prone images revealed normal myocardial perfusion. Overall, low-risk myocardial perfusion scan. Marcia Mayo - JOEL/london/carlos doc#: [id number]/job#: [id number] dd: 04/16/2023 12:53:00 dt: 04/16/2023 19:53:00 DICTATING MD/COPIES TO: Pramod Loera MD COPIES MNE: REMI;
== END 2023-04-16 18:20 | disposition home or self-care (01) ==
LOC: ED 16:53 → AC 17:36
PROVIDERS: Student in an Organized Health Care Education/Training Program; Admitting Provider Hospitalist; Emergency Provider Emergency Medicine; Family Provider Physician Assistant; PCP Physician Assistant; Referring Provider Emergency Medicine; Visit Provider Hospitalist
DX: R07.89 Other chest pain (principal); E03.9 Hypothyroidism, unspecified
CPT/HCPCS: 36415; 71045; 78452; 80048; 80053; 80061; 82550; 83036; 83690; 83735; 84484; 85025; 85610; 85730; 93005; 93017; 93307; 96360; 96361; 96372; 99284; G0378; A9502; J1644; J2785

== ENCOUNTER → 2023-04-24 09:17 | Outpatient (CLI) | payer MEDICARE, SELFPAY ==
[2023-04-15 18:32] VITALS: BMI 27.4
--- NOTE | 2023-04-24 | DI.CT.S_ITS ---
PROCEDURE: CT ABDOMEN PELVIS W CON INDICATIONS: Epigastric pain TECHNIQUE: After the administration of IV contrast, axial sections were acquired from the lung bases to the pubic symphysis. Coronal and sagittal reformats were performed. For radiation dose reduction, the following was used: automated exposure control, adjustment of mA and/or kV according to patient size. COMPARISON: [facility], CT, CT ABDOMEN PELVIS W CON, 01/11/2023, 20:12. FINDINGS: Image quality: Excellent. Lung bases: Unremarkable. Heart: No significant findings. ABDOMEN: Liver: Focally dilated hepatic vein in the right liver, (4/34), unchanged. Small cyst in the left lobe of the liver. Gallbladder: Distended. Numerous layering gallstones. Biliary ducts: Unremarkable. Pancreas: No peripancreatic fluid collection. Spleen: No splenomegaly. Adrenal Glands: No nodule. Kidneys and Ureters: Multiple small low-density renal cysts. A few cortical hypodensities which are too small to further characterize but also likely cysts. No hydronephrosis. Stomach and Bowel: Stomach, small bowel loops, and colon are unremarkable. Diverticulosis. The appendix is minimally prominent measuring 0.9 cm, (4/25). However, no periappendiceal inflammatory change. Peritoneum: No abnormal intraperitoneal fluid. No free air. Ventral Wall: No hernia. Abdominal Nodes: No retroperitoneal or mesenteric adenopathy by size criteria. Vessels: Aorta and inferior vena cava are normal in size. Retroaortic left renal vein, variant. PELVIS: Pelvic Organs: Retroverted uterus. Small right ovarian cyst measuring 0.9 cm. Bladder: No stones. Pelvic Nodes: No enlarged lymph nodes. Miscellaneous: Small fat containing right inguinal hernia. Bones: No suspicious osseous lesion. Multilevel DDD. IMPRESSION: 1. No acute inflammatory process is identified. No free fluid. 2. Diverticulosis. No diverticulitis. 3. The appendix is minimally prominent measuring 0.9 cm in diameter. However, no periappendiceal inflammatory change. 4. Multiple layering gallstones. If concern for acute cholecystitis consider gallbladder ultrasound and/or HIDA scan. 5. Dilated hepatic vein is unchanged. 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 This could be further evaluated with hepatic Doppler or multiphase liver CT. Dictated by: Jaxson Santos M.D. on 04/24/2023 at 14:54 Approved by: Jaxson Santos M.D. on 04/24/2023 at 15:09
== END ==
PROVIDERS: Family Provider Physician Assistant; PCP Physician Assistant; Referring Provider Internal Medicine; Visit Provider Internal Medicine
DX: R10.13 Epigastric pain (principal); K57.90 Diverticulosis of intestine, part unspecified, without perforation or abscess without bleeding; K80.20 Calculus of gallbladder without cholecystitis without obstruction
CPT/HCPCS: 74177; Q9967

== ENCOUNTER 2023-05-01 07:46 | Day surgery (SDC) | payer MEDICARE, SELFPAY ==
[2023-05-01] VITALS (15 sets, daily range): BP systolic 138–167; BP diastolic 65–88; PULSE 75–95; RESP 12–18; TEMP 36.2–36.6; O2SAT 93–97; BMI 26.6
--- NOTE | 2023-05-01 | PATH_ITS ---
[facility] Accession Number: [id number] No. of containers..01 Tissue . 01 Material submitted: . gallbladder - GALL BLADDER . 01 Diagnosis: Gallbladder, Cholecystectomy: Chronic cholecystitis with cholelithiasis. Negative for dysplasia and malignancy. MRV 05/05/2023 1415 Local . 01 Electronically signed: . Susana Thurman MD, Pathologist NPI- [id number] . 01 Gross description: . The specimen is received in formalin, labeled with the patient's name, , and gallbladder, and consists of a single previously disrupted gallbladder measuring 6.7 x 3.8 x 2.8 cm. The serosal surface is green and wrinkled with a single full-thickness defect measuring 1.2 cm in greatest dimension. No pericystic lymph nodes are identified. The cystic duct is clamped and is un-occluded. The gallbladder is opened to reveal less than 1 mL of green viscous bile and multiple black sand-like to multifaceted calculi, 5.7 x 5.3 x 0.9 cm in aggregate. The mucosal surface is green and trabecular with no polyps or lesions seen. The wall measures 0.5 cm in thickness. Cracking Unit Operator sections to include the cystic duct margin are submitted in cassette A1. ([id number]) /FRR 05/02/2023 1327 Local . 01 Pathologist provided ICD-10: K80.61 . 01 CPT . 299452 Performed at: 01 [facility] [address] [place] [address] [id number] MD Germán Stratton MD Phone: [phone]
--- NOTE | 2023-05-01 08:33 | PM.PREOP ---
Pre-operative Note Interval Note History & Physical reviewed/Exam performed by Physician: Yes Changes to H&P: No
[2023-05-01] MEDS: LACTATED RINGERS 1,000 ML 100 ML IV ×2 (08:39→10:45)
--- NOTE | 2023-05-01 08:59 | PM.OP.1 ---
Operative Date/Time/Diagnoses Date of procedure: 05/01/23 Time of procedure: 08:59 Pre-op diagnosis: Biliary colic Post-op diagnosis: same Procedure & Clinicians Procedure: Laparoscopic cholecystectomy Same procedure as scheduled: Yes Indications: 83-year-old woman with signs and radiographic findings consistent with biliary colic. Following discussion of risks benefits and alternatives she elects to proceed with surgery. Anesthesia Type: General Operative Notes Findings: Critical view of safety established Specimen(s): other (Gallbladder) Estimated Blood Loss (mL): 50 Procedure in detail: The patient was placed supine on the table and bilateral lower extremity compression devices were applied. Anesthesia was induced they were intubated with an endotracheal tube and received 2g of Ancef. A time-out was performed. They were prepped and draped in sterile fashion. An infraumbilical incision was made. The fascia was elevated incised and the abdomen was entered atraumatically. A blunt tip 12mm balloon trocar was then inserted, pneumoperitoneum was established and inspection of the abdomen demonstrated no evidence of injury. They were placed head up and right side up and then a 11 mm port was placed high in the epigastrium and two 5mm in the right upper quadrant. The gallbladder had stones but not acutely inflamed. The gallbladder was grasped by the fundus and retracted over the liver and retracted laterally by the infundibulum. Using electrocautery the lateral plane between the gallbladder and the liver was opened towards the fundus. The gallbladder was then retracted laterally and the medial plane was developed in the same manner. With the gallbladder mobilized the bottom of the cystic plate was visualized. The hepatocystic triangle was meticulosly skeletonized with blunt dissection of fat and fibrous tissue from both the front and the back. Only two structures were then clearly seen entering the gallbladder the cystic duct and the cystic artery. With the critical view of safety fully established the cystic duct was clipped twice proximally and once distally using the 10 mm Weck hemoclip applied under direct visualization and then sharply divided. The cystic artery was divided in the same fashion. The gallbladder was removed from the liver bed using electro cautery. The liver bed was then inspected for hemostasis and this was achieved. The abdomen was irrigated with sterile saline and inspection was made that showed the clips in good position. The specimen was removed using Endo-Catch. The abdomen was desufflated. The umbilical fascia was closed with 0 Vicryl in a [id number] fashion under direct visualization. Skin incisions were irrigated and closed with 4-0 Monocryl. 30 ml of 0.25% bupivacaine was infiltrated into the subcutaneous tissue of the incisions. The wounds were sealed with Dermabond. Patient emerged from anesthesia was extubated and transferred to recovery in stable condition. The sponge and instrument count at the end of the operation was correct. Complications: none Post-operative Condition: stable Disposition: same day surgery
[2023-05-01] MEDS: CLINDAMYCIN 900 MG/50 ML PIGGYBACK 50 MG IV (09:09)
--- NOTE | 2023-05-01 09:35 | SUR.OPER ---
Supine on padded OR bed, head on pillow, safety belt at thigh, left arm padded and tucked at side. Right arm secured on padded arm board <90 degrees abduction. Legs uncrossed. Padded footboard in place. Tape over blanket to secure lower legs.
[2023-05-01] MEDS: BUPIVACAINE 0.25% (PF) VIAL 30 ML INJ (09:38)
[2023-05-01] MEDS: fentaNYL 100 MCG/2 ML INJ IV ×4 (10:25→10:57)
[2023-05-01] MEDS: ONDANSETRON 4 MG/2 ML INJ IV (10:25)
[2023-05-01] MEDS: HYDROCODONE/ACET 5/325 TABLET 1 TAB PO ×2 (10:44→11:09)
== END 2023-05-01 12:21 | disposition home or self-care (01) ==
PROVIDERS: Family Provider Physician Assistant; PCP Physician Assistant; Referring Provider Surgery; Visit Provider Surgery
PROC: 0FT44ZZ Resection of Gallbladder, Percutaneous Endoscopic Approach (ICD-10-PCS; CPT 47562; principal; 2023-05-01 09:15)
DX: K80.10 Calculus of gallbladder with chronic cholecystitis without obstruction (principal)
CPT/HCPCS: 47562; J1100; J1885; J2405; J2704; J3010; J3490

== ENCOUNTER 2024-07-21 14:30 | Outpatient (RCR) | payer MEDICARE, SELFPAY ==
[2023-05-14 12:06] VITALS: BMI 27.4
--- NOTE | 2024-04-25 18:34 | PT.OIE ---
Current Diagnoses Other chronic pain (04/25/24) Pain in right shoulder (04/25/24) Pain in left shoulder (04/25/24) Pain in right ankle and joints of right foot (04/25/24) Pain in left ankle and joints of left foot (04/25/24) Pain in thoracic spine (04/25/24) Past Medical History (Last Reviewed 05/28/23 @ 19:35 by Adebayo Dunne MD) Chronic low back pain DDD (degenerative disc disease) Hearing loss Heartburn HLD (hyperlipidemia) Hypothyroid Macular degeneration of both eyes Osteoarthritis Seasonal allergies Past Surgical History (Last Reviewed 05/28/23 @ 19:35 by Adebayo Dunne MD) History of colonoscopy History of surgery on arm Hx of bilateral cataract extraction (~2012) Hx of hemorrhoidectomy (~1976) Hx of knee surgery (~1959) S/P epidural steroid injection Visit Care Team Role Provider Type Symone Landrum PA-C Family Provider Non-Staff Specialty: Medical Address: [address] [place] [address], [facility] Email: [email or web address] Aedla Ray PA-C Attending Provider Advanced Laundry Clerk Primary Care Provider Referring Provider Specialty: Medical Address: [address] [place] [address], [facility] Email: Physical Therapy Initial Evaluation PT-OP-A Visit Information Start: 04/19/24 19:12 Freq: Status: Active Protocol: Document 04/25/24 11:39 LRN (Rec: 04/25/24 12:53 LRN [id number]) Out-Patient Physical Therapy Visit Information Visit Information Visit Type Initial Evaluation Visit Start Time 11:39 Visit Stop Time 12:24 Visit Number 1 Evaluation Information Evaluation Date 04/25/24 Precautions Precautions Arthritis, bulging discs, 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 R TKA, [place] w/ hearing aides. PT-OP-B Current Condition Start: 04/19/24 19:12 Freq: Status: Active Protocol: Document 04/25/24 11:39 LRN (Rec: 04/25/24 12:53 LRN [id number]) Current Condition History of Current Condition Onset Date 3-4 months ago Current Complaints LBP>UBP, f/b ankles, f/b shoulders the least hindering. History of Current Condition Insidious onset of full body pain with worsening of symptoms 3-4 months ago and pains continuing to worsen; now needing help to manage the pain. LBP is constant, UBP hurts with standing in one place or sitting in uncomfortable chair , frequent pain in ankles, sometimes shoulders. Most difficult with ascending/ descending stairs. R ankles (TKA side) is worse than L ankles. States loss of capabilities she would like to get back (see Goals). Lives alone in [place]. Drives. Uses cane walking outside and to go up/down her one step (3- 4 step). States she has a high pain tolerance. Prior Treatments and Tests PT for back, Deanna Ellington, PT - 1 yr ago. Pt for R TKA, Homa eRcinos, PT - 2019. Knee is okay. Treatment Goals Patient/Caregiver Goals Pt goals: - 4-5 Stairs is a barrier. Needs UE support to go up/down curb. - Walk w/o cane for 4 laps around neighborhood (2 miles) with cane. 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 Prior Functional Status Baseline Function- Gait Walking around neighborhood 4 laps (2 miles) with cane w/ tolerable pain. Baseline Function- Other Stand 15-20' before needing to move. Curb ascend/descend with cane, with moderate instability. Current Functional Impairments (Reported) Functional Limitations- ADL's Stands 5' before back hurts. Needs UE support to go up/down curb due to sense of instability. Functional Limitations- Mobility/Gait Walks 2 laps around the neighborhood (1 mile) with cane slowly with tolerable pain. Personal Factors Other Personal Factors That May Effect Lives alone. Drives self. Therapy/Recovery PT-OP-C Subjective Start: 04/19/24 19:12 Freq: Status: Active Protocol: Document 04/25/24 11:39 LRN (Rec: 04/25/24 12:53 LRN [id number]) Patient Questionnaires Lower Extremity Functional Scale LEFS Score 24 LEFS Impairment 60 to 79% Impaired (Score 17- 31) Quick Dash- Upper Extremity Quick Dash UE Score 38.63 Quick Dash UE Impairment 20 to 39% Impaired (Score 20- 39) OP-PT Pain Assessment Pain Assessment Grid Paper Pain Assessment Grid Completed Yes Location R shoulder Scale Used Numeric (0 - 10) L shoulder Scale Used Numeric (0 - 10) R ankle Scale Used Numeric (0 - 10) L ankle Scale Used Numeric (0 - 10) LBP Scale Used Numeric (0 - 10) Thoracic spine Scale Used Numeric (0 - 10) PT-OP-G Mobility & Gait Start: 04/19/24 19:12 Freq: Status: Active Protocol: Document 04/25/24 11:39 LRN (Rec: 04/25/24 12:53 LRN [id number]) OP Gait Assessment Gait Gait Assistance Required: Independent Distance (Feet) 60 Able to Maintain Weight Bearing Status Yes During Gait Assistive Devices Assistive Device Straight Cane Gait Deviations General Gait Pattern Decreased Stride Length,Flexed Trunk Factors Limiting Gait Function Factors Limiting Gait Function Decreased Strength,Pain,Poor Balance Stair Climbing Evaluation Comments Stair Climbing Comments Pt reporting able to go up/ down curb with SPC independently but feels unstable in her balance. PT-OP-H Neuro Start: 04/19/24 19:12 Freq: Status: Active Protocol: Document 04/25/24 11:39 LRN (Rec: 04/25/24 12:53 LRN [id number]) Sensation Evaluation Gross Sensation Gross Sensation WNL PT-OP-J Posture/Palpation/Skin Start: 04/19/24 19:12 Freq: Status: Active Protocol: Document 04/25/24 11:39 LRN (Rec: 04/25/24 12:53 LRN [id number]) Posture Evaluation Position Standing Head/C-Spine Posture Forward Head T-Spine Posture Flattened Shoulder Posture (L) Elevated Scapula Posture (L) Elevated Pelvis Posture (L) Iliac Crest Superior,(L) PSIS Posterior Weight Distribution Weight Shifted Right Hip Posture (L) Flexed,(R) Flexed Knee Posture (L) Genu Valgus,(L) Excess Flexion Comments Posture Comments L breast high, Trunk a little R SB, flexed at hips 22 deg's , L knee flexed 10 deg's. Palpation Assessment Location L/S Palpation Location L L/S paraspinals, QL, Gluteals Palpation Findings Soft Tissue Tightness,Muscle Guarding Palpation Details Tenderness at L PSIS. T/S Palpation Location Paraspinals Palpation Findings Soft Tissue Tightness,Muscle Guarding,Tenderness Palpation Details R side muscle guarding. Intrascapular ms pain. PT-OP-K Range of Motion Start: 04/19/24 19:12 Freq: Status: Active Protocol: Document 04/25/24 11:39 LRN (Rec: 04/25/24 12:53 LRN [id number]) Lumbar Spine Range of Motion Lumbar Spine Active Degrees Testing Position Standing Rotation Left 5 Rotation Right 10 Lateral Flexion Left 5 Lateral Flexion Right 2 ROM Limitations Soft Tissue Tightness,Pain Comments Standing posture starts at 20 deg's trunk flexion. Flexion: 20-80 deg's. Extension: 20 - 10 deg's flexion. PT-OP-M Strength Start: 04/19/24 19:12 Freq: Status: Active Protocol: Document 04/25/24 11:39 LRN (Rec: 04/25/24 12:53 LRN [id number]) Trunk Strength Trunk Manual Muscle Testing Flexion 5 Normal Extension 2 Poor Rotation Left 4 Good Rotation Right 4 Good Lateral Flexion Left 3- Fair- Lateral Flexion Right 3- Fair- Comments Pt feels like she is falling backwards when placed in upright standing. PT-OP-Q Treatments Start: 04/19/24 19:12 Freq: Status: Active Protocol: Document 04/25/24 11:39 LRN (Rec: 04/25/24 12:53 LRN [id number]) Therapeutic Exercises Sitting Exercises Side sit Iliopsoas/Quad stretch Side bilateral Reps/Minutes 30 SH x 1 each Comments Pt needed phys as well as v cuing for stretch Standing Exercises Wall standing Standing Exercise Name Posture correction with wall & w/o wall standing, EO/EC Reps/Minutes 3' Self-Care/Home Management Treatment Education Other Education Discussed results of evaluation, goals, treatment, and plan of care (POC) with pt , attendance/cx/dns policy; pt agreeable to evaluation, goals, treatment, attendance/ cx/dns policy and POC. Activities Self-Care/Home Management Activities I/S pt in sitting Iliopsoas/ quad stretch, holding as tolerated up to 1 minute. I/S pt in wall standing for upright positioning, holding as tolerated for up to 1 minute. PT-OP-T Assessment and Plan Start: 04/19/24 19:12 Freq: Status: Active Protocol: Document 04/25/24 11:39 LRN (Rec: 04/25/24 12:53 LRN [id number]) Physical Therapy Assessment Rehab Potential Rehabilitation Potential Good Evaluation Complexity Number of Personal Factors/Comorbidities 1-2 Number of Body Systems Impaired 4 or More Clinical Presentation at Evaluation Evolving Impairments Impairments Activity Tolerance,Balance, Functional Activities, Functional Mobility,Gait,Pain, Posture,ROM,Soft Tissue Mobility,Strength,Transfers Goals Four Impairment Decreased endurance & exer tolerance (gait 1 mile), PLOF- 2 miles w/cane Juice Scaleman Goal (LTG) Improve endurance with pt able to walk with or without a cane for 4 laps around the neighborhood (~2 miles) with cane. (Prior level of function: Three Impairment Decreased LE strength/balance with pt feeling insecure with stair abulation Short Term Goal (STG) Improve SLS and ankle strength with pt able to amb up/down 4 steps with rail w/o fear of falling. Juice Scaleman Goal (LTG) Improve function per LEFS ( initial eval score 24 = 60-79% impaired, score 17-31) with pt able to ambulate up/down 4- 5 stairs & a curb with SPC with confidence. Two Impairment Pain UB (4/10) & LB (3-4/10) Short Term Goal (STG) Pt will be able to demonstrate prope body mechanics for ADLs (lifting, reaching, carrying objects with one hand). Mcfp Goal (LTG) Reduce standing hip flexion to be no greater than 5 deg's with pt able to static marketing business analyst one place for 15-20' before needing to move (ex-in gracery line). One Impairment Lacks appropriate self care HEP Short Term Goal (STG) Pt will be educated and demonstrate knowledge of proper sitting/standing posture. Juice Scaleman Goal (LTG) Pt will be independent in an effective self care HEP for core/ankle & shoulder strengthening and mobility ex' s. Assessment Summary Assessment Pt is an 84 yo female with c/o of pain in multiple areas of her body (upper back, lower back, radha ankles, radha shoulders) but today she would like to focus on reducing her upper and lower back pain, because it functionally limiting in her ability to stand, walk and ambulate stairs, due to poor posturing (onset of back pain), and decreased balance. The pt would like to address her bilateral ankle and shoulder pain after getting relief from her back pain; therefore further assessment of her ankles and feet will be addressed at her next visit and new plan of care will be discussed. Assessment today was of her Thoracic and Lumbar region as this is the area of most concern for today. The pt will benefit from skilled physical therapy to improve posture and LE wgt bearing symmetry, improve back/core strength and mobility, and improve balance to improve pt' s confidence with stair/curb ambuation, and radha LE/UE strengthening to improve function per LEFS & UE Quickdash score. It is expected due to the multiple areas of concern that the pt's rehabilitation time will most likely need to be extended. Physical Therapy Plan Frequency and Duration Frequency of Treatment 2x/Week Duration of treatment (weeks) 12 Plan of Care Start Date 04/25/24 Plan of Care End Date 07/22/24 Therapeutic Interventions Therapeutic Interventions Balance Training,Gait Training ,Home Exercise Program,Manual Therapy,Neuromuscular Re- education,Self-Care/Home Management,Soft Tissue Mobilization,Therapeutic Activities,Therapeutic Exercises Modalities Cold Pack/Ice Massage,Electric Stimulation,Hot Packs Next Visit Focus/Plan Next Note Type Treatment Note Next Visit Plan Next: Complete JOSE, Set functional goals for radha ankles and shoulders, and check palp/ROM/strength. Thoracic/Lumbar back pain rehab: posture training, gait /standing mechanics, mobility ex's of anterior hips and abdomen, strengthening of back /gluteals. Progressing to bialteral ankle rehab and lastly bilateral shoulder rehab. Ankle Rehab: Assess ankle ROM /MMT, stairs, Balance, TUG, Gait speed/gait training. Shoulder Rehab: Assess shoulder ROM/MMT, Apley's Test . POC: Therapeutic Ex ( strengthening/ROM), Therapeutic Activity (transfer training), Gait & Balance training, Manual therapy (STM/ JMT), Pt Education (HEP, Edema and pain mgmt), modalities for pain (precaution R TKA).
--- NOTE | 2024-04-29 15:41 | PT.OTN ---
Current Diagnoses Other chronic pain (04/29/24) Pain in right shoulder (04/29/24) Pain in left shoulder (04/29/24) Pain in right ankle and joints of right foot (04/29/24) Pain in left ankle and joints of left foot (04/29/24) Pain in thoracic spine (04/29/24) Physical Therapy Treatment Note PT-OP-A Visit Information Start: 04/19/24 19:12 Freq: Status: Active Protocol: Document 04/29/24 09:09 LRN (Rec: 04/29/24 09:52 LRN [id number]) Out-Patient Physical Therapy Visit Information Visit Information Visit Type Progress Note Visit Start Time 09:09 Visit Stop Time 09:48 Visit Number 2 Evaluation Information Evaluation Date 04/25/24 Precautions Precautions Arthritis, bulging discs, 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 R TKA, [employer] [place] w/ hearing aides. PT-OP-B Current Condition Start: 04/19/24 19:12 Freq: Status: Active Protocol: Document 04/25/24 11:39 LRN (Rec: 04/25/24 12:53 LRN [id number]) Current Condition History of Current Condition Onset Date 3-4 months ago Current Complaints LBP>UBP, f/b ankles, f/b shoulders the least hindering. History of Current Condition Insidious onset of full body pain with worsening of symptoms 3-4 months ago and pains continuing to worsen; now needing help to manage the pain. LBP is constant, UBP hurts with standing in one place or sitting in uncomfortable chair , frequent pain in ankles, sometimes shoulders. Most difficult with ascending/ descending stairs. R ankles (TKA side) is worse than L ankles. States loss of capabilities she would like to get back (see Goals). Lives alone in [place]. Drives. Uses cane walking outside and to go up/down her one step (3- 4 step). States she has a high pain tolerance. Prior Treatments and Tests PT for back, Deanna Ellington, PT - 1 yr ago. Pt for R TKA, Homa Recinos, PT - 2020. Knee is okay. Treatment Goals Patient/Caregiver Goals Pt goals: - 4-5 Stairs is a barrier. Needs UE support to go up/down curb. - Walk w/o cane for 4 laps around neighborhood (2 miles) with cane. 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 Prior Functional Status Baseline Function- Gait Walking around neighborhood 4 laps (2 miles) with cane w/ tolerable pain. Baseline Function- Other Stand 15-20' before needing to move. Curb ascend/descend with cane, with moderate instability. Current Functional Impairments (Reported) Functional Limitations- ADL's Stands 5' before back hurts. Needs UE support to go up/down curb due to sense of instability. Functional Limitations- Mobility/Gait Walks 2 laps around the neighborhood (1 mile) with cane slowly with tolerable pain. Personal Factors Other Personal Factors That May Effect Lives alone. Drives self. Therapy/Recovery PT-OP-C Subjective Start: 04/19/24 19:12 Freq: Status: Active Protocol: Document 04/29/24 09:09 LRN (Rec: 04/29/24 09:52 LRN [id number]) OP-PT Subjective Patient Comments Patient Comments States she wants to forget her shoulder problems and is most interested in fixing her back and legs. R ankle hurts most frequently walking and standing in one place. Patient Questionnaires Oswestry Low Back Index Oswestry Score 40/100 Oswestry Impairment 40 to 59% Impaired (Score 40- 59) PT-OP-D Balance Start: 04/19/24 19:12 Freq: Status: Active Protocol: Document 04/29/24 09:09 LRN (Rec: 04/29/24 09:52 LRN [id number]) Balance Tests Single Limb Standing Single Limb- Right 0 Single Limb- Left 0 PT-OP-G Mobility & Gait Start: 04/19/24 19:12 Freq: Status: Active Protocol: Document 04/25/24 11:39 LRN (Rec: 04/25/24 12:53 LRN [id number]) OP Gait Assessment Gait Gait Assistance Required: Independent Distance (Feet) 60 Able to Maintain Weight Bearing Status Yes During Gait Assistive Devices Assistive Device Straight Cane Gait Deviations General Gait Pattern Decreased Stride Length,Flexed Trunk Factors Limiting Gait Function Factors Limiting Gait Function Decreased Strength,Pain,Poor Balance Stair Climbing Evaluation Comments Stair Climbing Comments Pt reporting able to go up/ down curb with SPC independently but feels unstable in her balance. PT-OP-H Neuro Start: 04/19/24 19:12 Freq: Status: Active Protocol: Document 04/25/24 11:39 LRN (Rec: 04/25/24 12:53 LRN [id number]) Sensation Evaluation Gross Sensation Gross Sensation WNL PT-OP-J Posture/Palpation/Skin Start: 04/19/24 19:12 Freq: Status: Active Protocol: Document 04/25/24 11:39 LRN (Rec: 04/25/24 12:53 LRN [id number]) Posture Evaluation Position Standing Head/C-Spine Posture Forward Head T-Spine Posture Flattened Shoulder Posture (L) Elevated Scapula Posture (L) Elevated Pelvis Posture (L) Iliac Crest Superior,(L) PSIS Posterior Weight Distribution Weight Shifted Right Hip Posture (L) Flexed,(R) Flexed Knee Posture (L) Genu Valgus,(L) Excess Flexion Comments Posture Comments L breast high, Trunk a little R SB, flexed at hips 22 deg's , L knee flexed 10 deg's. Palpation Assessment Location L/S Palpation Location L L/S paraspinals, QL, Gluteals Palpation Findings Soft Tissue Tightness,Muscle Guarding Palpation Details Tenderness at L PSIS. T/S Palpation Location Paraspinals Palpation Findings Soft Tissue Tightness,Muscle Guarding,Tenderness Palpation Details R side muscle guarding. Intrascapular ms pain. PT-OP-K Range of Motion Start: 04/19/24 19:12 Freq: Status: Active Protocol: Document 04/25/24 11:39 LRN (Rec: 04/25/24 12:53 LRN [id number]) Lumbar Spine Range of Motion Lumbar Spine Active Degrees Testing Position Standing Rotation Left 5 Rotation Right 10 Lateral Flexion Left 5 Lateral Flexion Right 2 ROM Limitations Soft Tissue Tightness,Pain Comments Standing posture starts at 20 deg's trunk flexion. Flexion: 20-80 deg's. Extension: 20 - 10 deg's flexion. PT-OP-M Strength Start: 04/19/24 19:12 Freq: Status: Active Protocol: Document 04/29/24 09:09 LRN (Rec: 04/29/24 09:52 LRN [id number]) Ankle/Foot Strength Ankle and Foot Manual Muscle Testing Right Dorsiflexion (L4) 3+ Fair+ Plantarflexion (S1) 5 Normal Inversion 3+ Fair+ Eversion (S1) 4 Good Comments DF ROM is to neutral. Supination is 3+/5 Pronation is 4/5 Left Dorsiflexion (L4) 3+ Fair+ Plantarflexion (S1) 5 Normal Inversion 3+ Fair+ Eversion (S1) 4+ Good+ Comments DF ROM is to neutral. Supination is 3+/5 Pronation is 4+/5 PT-OP-Q Treatments Start: 04/19/24 19:12 Freq: Status: Active Protocol: Document 04/29/24 09:09 LRN (Rec: 04/29/24 09:52 [facility] [id number]) Therapeutic Exercises Sitting Exercises Sit<>stand Sitting Exercise Name Use of arms for support. Reps/Minutes 8x Comments Extra time taken to determine max tolerated reps. 4 way ankle ex Sitting Exercise Name DF, EV, PF, IV Side bilateral Reps/Minutes 10-12 each. Comments Cued to hold at end range 1-2 secs. Side sit Iliopsoas/Quad stretch Sitting Exercise Name Sitting at corner of plinth Side bilateral Reps/Minutes 30 SH x 2 each Comments Pt needed phys as well as v cuing for stretch Standing Exercises SLS Side bilateral Equipment Used Gait belt Reps/Minutes 3' Comments SLS - 0 secs bilaterally Self-Care/Home Management Treatment Activities Self-Care/Home Management Activities HEP: Active Ankle IV/EV/DF/PF , sit<>stand. PT-OP-T Assessment and Plan Start: 04/19/24 19:12 Freq: Status: Active Protocol: Document 04/29/24 09:09 LRN (Rec: 04/29/24 09:52 [facility] [id number]) Physical Therapy Assessment Rehab Potential Rehabilitation Potential Good Evaluation Complexity Number of Personal Factors/Comorbidities 1-2 Number of Body Systems Impaired 4 or More Clinical Presentation at Evaluation Evolving Impairments Impairments Activity Tolerance,Balance, Functional Activities, Functional Mobility,Gait,Pain, Posture,ROM,Soft Tissue Mobility,Strength,Transfers Goals Four Impairment Decreased endurance & exer tolerance (gait 1 mile), PLOF- 2 miles w/cane Short Term Goal (STG) Improve ankle strength to decrease ankle pain with walking. STG Duration 06/24/24 [employer] Goal (LTG) Improve LE endurance with pt able to walk with cane for 4 laps around the neighborhood ( ~2 miles) with pain rated no more than 4/10. (Prior level of function: Able to walk 1 mile with back pain rated 3-4/ 10). LTG Duration 07/22/24 Three Impairment Decreased LE strength/balance with pt feeling insecure with stair abulation Short Term Goal (STG) Improve SLS and ankle strength with pt able to amb up/down 4 steps with rail w/o fear of falling. STG Duration 06/24/24 [employer] Goal (LTG) Improve function per LEFS ( initial eval score 24 = 60-79% impaired, score 17-31) with pt able to ambulate up/down 4- 5 stairs & a curb with SPC with confidence. LTG Duration 07/22/24 Two Impairment Pain UB (4/10) & LB (3-4/10) Short Term Goal (STG) Pt will be able to demonstrate proper body mechanics for ADLs (lifting, reaching, carrying objects with one hand ). STG Duration 05/20/24 [employer] Goal (LTG) Reduce standing hip flexion to be no greater than 5 deg's with pt able to static standing for 15-20' before needing to move (ex-in gracery line). LTG Duration 07/22/24 One Impairment Lacks appropriate self care HEP Short Term Goal (STG) Pt will be educated and demonstrate knowledge of proper sitting/standing posture. STG Duration 05/20/24 [employer] Goal (LTG) Pt will be independent in an effective self care HEP for core & ankle strengthening and mobility ex's, and general LE ex's. 04/29/24 HEP: Active Ankle IV/EV/DF/PF, and sit<>stand ex 's. LTG Duration 07/22/24 progressed 04/29/24 Assessment Summary Assessment 84 yo female with pain in multiple areas of her body, w/ rehab focus on reducing upper & lower back pain and R>L ankle pain to be able to walk, stand, and ambulate longer before being limited by pain. Today, pt shows decreased SLS (0 secs bilaterally) balance due to ankle weakness and visibly decreased ankle DF ROM , JOSE indicates low back impairment of 40%. [place] and/or UNDER[place] assessment would be helpfu to identify other areas of dysfunction for balance and gait. New ankle goals set added today. Pt will benefit from skilled physical therapy to achieve above stated goals for back and ankle rehabilitation at pt request. Physical Therapy Plan Frequency and Duration Frequency of Treatment 2x/Week Duration of treatment (weeks) 12 Plan of Care Start Date 04/25/24 Plan of Care End Date 07/22/24 Therapeutic Interventions Therapeutic Interventions Balance Training,Gait Training ,Home Exercise Program,Manual Therapy,Neuromuscular Re- education,Self-Care/Home Management,Soft Tissue Mobilization,Therapeutic Activities,Therapeutic Exercises Modalities Cold Pack/Ice Massage,Electric Stimulation,Hot Packs Next Visit Focus/Plan Next Note Type Treatment Note Next Visit Plan (precaution R TKA). Next: Assess ankle AROM & Add HEP: Runner's stretch. Assess Tinetti and/or UNDERWOOD assessment . Thoracic/Lumbar back pain rehab: posture training, gait /standing mechanics, mobility ex's of anterior hips and abdomen, strengthening of back /gluteals. Progressing to Ankle rehab ( radha) and DC shoulder rehab at pt request. Ankle Rehab: Assess ankle ROM , stairs, TUG, Gait speed/gait training. POC: Therapeutic Ex ( strengthening/ROM), Therapeutic Activity (transfer training), Gait & Balance training, Manual therapy (STM/ JMT), Pt Education (HEP, Edema and pain mgmt), modalities for pain.
--- NOTE | 2024-05-03 13:48 | PT.OTN ---
Addendum entered and electronically signed by Cecille Lynch 05/03/24 16:39: Note to PT for cosign Original Note: Current Diagnoses Other chronic pain (05/03/24) Pain in right shoulder (05/03/24) Pain in left shoulder (05/03/24) Pain in right ankle and joints of right foot (05/03/24) Pain in left ankle and joints of left foot (05/03/24) Pain in thoracic spine (05/03/24) Physical Therapy Treatment Note PT-OP-A Visit Information Start: 04/19/24 19:12 Freq: Status: Active Protocol: Document 05/03/24 10:06 AB (Rec: 05/03/24 12:39 AB [id number]) Out-Patient Physical Therapy Visit Information Visit Information Visit Type Treatment Note Visit Note PT start of session, then PROGRAM ASSISTANT at 10:03 am Visit Start Time 09:53 Visit Stop Time 10:36 Visit Number 3 Number of PROGRAM ASSISTANT Visits 1 PT-OP-B Current Condition Start: 04/19/24 19:12 Freq: Status: Active Protocol: Document 04/25/24 11:39 LRN (Rec: 04/25/24 12:53 LRN [id number]) Current Condition History of Current Condition Onset Date 3-4 months ago Current Complaints LBP>UBP, f/b ankles, f/b shoulders the least hindering. History of Current Condition Insidious onset of full body pain with worsening of symptoms 3-4 months ago and pains continuing to worsen; now needing help to manage the pain. LBP is constant, UBP hurts with standing in one place or sitting in uncomfortable chair , frequent pain in ankles, sometimes shoulders. Most difficult with ascending/ descending stairs. R ankles (TKA side) is worse than L ankles. States loss of capabilities she would like to get back (see Goals). Lives alone in [place]. Drives. Uses cane walking outside and to go up/down her one step (3- 4 step). States she has a high pain tolerance. Prior Treatments and Tests PT for back, Deanna Ellington, PT - 1 yr ago. Pt for R TKA, Homa Recinos, PT - 2020. Knee is okay. Treatment Goals Patient/Caregiver Goals Pt goals: - 4-5 Stairs is a barrier. Needs UE support to go up/down curb. - Walk w/o cane for 4 laps around neighborhood (2 miles) with cane. 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 Prior Functional Status Baseline Function- Gait Walking around neighborhood 4 laps (2 miles) with cane w/ tolerable pain. Baseline Function- Other Stand 15-20' before needing to move. Curb ascend/descend with cane, with moderate instability. Current Functional Impairments (Reported) Functional Limitations- ADL's Stands 5' before back hurts. Needs UE support to go up/down curb due to sense of instability. Functional Limitations- Mobility/Gait Walks 2 laps around the neighborhood (1 mile) with cane slowly with tolerable pain. Personal Factors Other Personal Factors That May Effect Lives alone. Drives self. Therapy/Recovery PT-OP-C Subjective Start: 04/19/24 19:12 Freq: Status: Active Protocol: Document 05/03/24 10:06 AB (Rec: 05/03/24 12:39 AB [id number]) OP-PT Subjective Patient Comments Patient Comments Patient reports she is peforming her exercises at home, going OK. Patient reports she has her normal pain start of session. During session patient reports she had severe sprain left ankle 10-12 years ago, was black and blue from foot to knee. PT-OP-D Balance Start: 04/19/24 19:12 Freq: Status: Active Protocol: Document 04/29/24 09:09 LRN (Rec: 04/29/24 09:52 LRN [id number]) Balance Tests Single Limb Standing Single Limb- Right 0 Single Limb- Left 0 PT-OP-G Mobility & Gait Start: 04/19/24 19:12 Freq: Status: Active Protocol: Document 04/25/24 11:39 LRN (Rec: 04/25/24 12:53 LRN [id number]) OP Gait Assessment Gait Gait Assistance Required: Independent Distance (Feet) 60 Able to Maintain Weight Bearing Status Yes During Gait Assistive Devices Assistive Device Straight Cane Gait Deviations General Gait Pattern Decreased Stride Length,Flexed Trunk Factors Limiting Gait Function Factors Limiting Gait Function Decreased Strength,Pain,Poor Balance Stair Climbing Evaluation Comments Stair Climbing Comments Pt reporting able to go up/ down curb with SPC independently but feels unstable in her balance. PT-OP-H Neuro Start: 04/19/24 19:12 Freq: Status: Active Protocol: Document 04/25/24 11:39 LRN (Rec: 04/25/24 12:53 LRN [id number]) Sensation Evaluation Gross Sensation Gross Sensation WNL PT-OP-J Posture/Palpation/Skin Start: 04/19/24 19:12 Freq: Status: Active Protocol: Document 04/25/24 11:39 LRN (Rec: 04/25/24 12:53 LRN [id number]) Posture Evaluation Position Standing Head/C-Spine Posture Forward Head T-Spine Posture Flattened Shoulder Posture (L) Elevated Scapula Posture (L) Elevated Pelvis Posture (L) Iliac Crest Superior,(L) PSIS Posterior Weight Distribution Weight Shifted Right Hip Posture (L) Flexed,(R) Flexed Knee Posture (L) Genu Valgus,(L) Excess Flexion Comments Posture Comments L breast high, Trunk a little R SB, flexed at hips 22 deg's , L knee flexed 10 deg's. Palpation Assessment Location L/S Palpation Location L L/S paraspinals, QL, Gluteals Palpation Findings Soft Tissue Tightness,Muscle Guarding Palpation Details Tenderness at L PSIS. T/S Palpation Location Paraspinals Palpation Findings Soft Tissue Tightness,Muscle Guarding,Tenderness Palpation Details R side muscle guarding. Intrascapular ms pain. PT-OP-K Range of Motion Start: 04/19/24 19:12 Freq: Status: Active Protocol: Document 05/03/24 10:06 AB (Rec: 05/03/24 12:50 AB [id number]) Ankle and Foot Goniometric Range of Motion Ankle and Foot PROM right Ankle/Foot ROM WFL Yes Testing Position Standing Comments DF with knee flexed left knee 7 cm from wall with great toe to wall prior to heel off floor AROM right Ankle/Foot ROM WFL No Testing Position Supine Comments AROM DF with knee ext lacking 8 deg from neutral PROM left Ankle/Foot ROM WFL No Testing Position Standing Comments DF with knee flexed left knee 8.5 cm from wall with great toe to wall prior to heel off floor AROM left Ankle/Foot ROM WFL No Testing Position Supine Comments AROM DF with knee ext lacking 12 deg from neutral PT-OP-M Strength Start: 04/19/24 19:12 Freq: Status: Active Protocol: Document 04/29/24 09:09 LRN (Rec: 04/29/24 09:52 LRN [id number]) Ankle/Foot Strength Ankle and Foot Manual Muscle Testing Right Dorsiflexion (L4) 3+ Fair+ Plantarflexion (S1) 5 Normal Inversion 3+ Fair+ Eversion (S1) 4 Good Comments DF ROM is to neutral. Supination is 3+/5 Pronation is 4/5 Left Dorsiflexion (L4) 3+ Fair+ Plantarflexion (S1) 5 Normal Inversion 3+ Fair+ Eversion (S1) 4+ Good+ Comments DF ROM is to neutral. Supination is 3+/5 Pronation is 4+/5 PT-OP-Q Treatments Start: 04/19/24 19:12 Freq: Status: Active Protocol: Document 05/03/24 10:06 AB (Rec: 05/03/24 12:39 AB [id number]) Therapeutic Exercises Supine Exercises ankle pumps Side bilateral Reps/Minutes X40 Comments post manual Sitting Exercises Sit<>stand Sitting Exercise Name Use of arms for support. Side bilateral Reps/Minutes X10 Comments verbal cues and facilitation for posture each rep when reaching upright* 4 way ankle ex Sitting Exercise Name DF, EV, PF, IV Side bilateral Reps/Minutes X15 each Comments monitored for form and compensation Standing Exercises calf stretch Standing Exercise Name standing at wall, Gastroc to soleus Reps/Minutes one minute X1 each LE each stretch Comments verbal and visual cues, additional verbal tact to avoid toe out Wall standing Standing Exercise Name Posture correction with wall & w/o wall standing, EO/EC Reps/Minutes 5+ Comments left heel to wall, right heel unable to reach wall Manual Therapy Treatment Consent Patient gave verbal consent for manual Yes treatment Soft Tissue Mobilization bilateral calf muscles Mobilization Type Cross-Friction,Rolling,Other Intensity/Depth Moderate Body Position Hooklying Comments prior to stretch PT-OP-T Assessment and Plan Start: 04/19/24 19:12 Freq: Status: Active Protocol: Document 05/03/24 10:06 AB (Rec: 05/03/24 12:39 AB [id number]) Physical Therapy Assessment Assessment Summary Assessment 84 yo female with pain in multiple areas of her body, w/ rehab focus on reducing upper & lower back pain and R>L ankle pain to be able to walk, stand, and ambulate longer before being limited by pain. Increased calf muscle stiffness likely impacting alignment descending stairs increasing lat to med force on knees. Patient reports only having her normal pain end of session. Physical Therapy Plan Frequency and Duration Frequency of Treatment 2x/Week Duration of treatment (weeks) 12 Plan of Care Start Date 04/25/24 Plan of Care End Date 07/22/24 Next Visit Focus/Plan Next Note Type Treatment Note Next Visit Plan (precaution R TKA). Next: Assess ankle AROM( DF completed & Add HEP: Assess Tinetti and/or UNDERWOOD assessment. Thoracic/Lumbar back pain rehab: posture training, gait /standing mechanics, mobility ex's of anterior hips and abdomen, strengthening of back /gluteals. Progressing to Ankle rehab ( radha) and DC shoulder rehab at pt request. Ankle Rehab: Assess ankle ROM , stairs, TUG, Gait speed/gait training. POC: Therapeutic Ex ( strengthening/ROM), Therapeutic Activity (transfer training), Gait & Balance training, Manual therapy (STM/ JMT), Pt Education (HEP, Edema and pain mgmt), modalities for pain.
--- NOTE | 2024-05-09 10:34 | PT.OTN ---
Current Diagnoses Other chronic pain (05/09/24) Pain in right shoulder (05/09/24) Pain in left shoulder (05/09/24) Pain in right ankle and joints of right foot (05/09/24) Pain in left ankle and joints of left foot (05/09/24) Pain in thoracic spine (05/09/24) Physical Therapy Treatment Note PT-OP-A Visit Information Start: 04/19/24 19:12 Freq: Status: Active Protocol: Document 05/09/24 09:50 SP (Rec: 05/09/24 10:41 SP [id number]) Out-Patient Physical Therapy Visit Information Visit Information Visit Type Treatment Note Visit Start Time 09:50 Visit Stop Time 10:34 Visit Number 4 Number of CLOUD SERVICES ARCHITECT Visits 2 Evaluation Information Evaluation Date 04/25/24 Precautions Precautions Arthritis, bulging discs, 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 R TKA, THREE AFFILIATED w/ hearing aides. PT-OP-B Current Condition Start: 04/19/24 19:12 Freq: Status: Active Protocol: Document 04/25/24 11:39 LRN (Rec: 04/25/24 12:53 LRN [id number]) Current Condition History of Current Condition Onset Date 3-4 months ago Current Complaints LBP>UBP, f/b ankles, f/b shoulders the least hindering. History of Current Condition Insidious onset of full body pain with worsening of symptoms 3-4 months ago and pains continuing to worsen; now needing help to manage the pain. LBP is constant, UBP hurts with standing in one place or sitting in uncomfortable chair , frequent pain in ankles, sometimes shoulders. Most difficult with ascending/ descending stairs. R ankles (TKA side) is worse than L ankles. States loss of capabilities she would like to get back (see Goals). Lives alone in [place]. Drives. Uses cane walking outside and to go up/down her one step (3- 4 step). States she has a high pain tolerance. Prior Treatments and Tests PT for back, Deanna Ellington, PT - 1 yr ago. Pt for R TKA, Homa Recinos, PT - 2020. Knee is okay. Treatment Goals Patient/Caregiver Goals Pt goals: - 4-5 Stairs is a barrier. Needs UE support to go up/down curb. - Walk w/o cane for 4 laps around neighborhood (2 miles) with cane. 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 Prior Functional Status Baseline Function- Gait Walking around neighborhood 4 laps (2 miles) with cane w/ tolerable pain. Baseline Function- Other Stand 15-20' before needing to move. Curb ascend/descend with cane, with moderate instability. Current Functional Impairments (Reported) Functional Limitations- ADL's Stands 5' before back hurts. Needs UE support to go up/down curb due to sense of instability. Functional Limitations- Mobility/Gait Walks 2 laps around the neighborhood (1 mile) with cane slowly with tolerable pain. Personal Factors Other Personal Factors That May Effect Lives alone. Drives self. Therapy/Recovery PT-OP-C Subjective Start: 04/19/24 19:12 Freq: Status: Active Protocol: Document 05/09/24 09:50 SP (Rec: 05/09/24 10:41 SP [id number]) OP-PT Subjective Patient Comments Patient Comments Pt reports her back is hurting while trying to the calf stretches, wants to review, the positioning just doesn't work for her. PT-OP-D Balance Start: 04/19/24 19:12 Freq: Status: Active Protocol: Document 04/29/24 09:09 LRN (Rec: 04/29/24 09:52 LRN [id number]) Balance Tests Single Limb Standing Single Limb- Right 0 Single Limb- Left 0 PT-OP-G Mobility & Gait Start: 04/19/24 19:12 Freq: Status: Active Protocol: Document 04/25/24 11:39 LRN (Rec: 04/25/24 12:53 LRN [id number]) OP Gait Assessment Gait Gait Assistance Required: Independent Distance (Feet) 60 Able to Maintain Weight Bearing Status Yes During Gait Assistive Devices Assistive Device Straight Cane Gait Deviations General Gait Pattern Decreased Stride Length,Flexed Trunk Factors Limiting Gait Function Factors Limiting Gait Function Decreased Strength,Pain,Poor Balance Stair Climbing Evaluation Comments Stair Climbing Comments Pt reporting able to go up/ down curb with SPC independently but feels unstable in her balance. PT-OP-H Neuro Start: 04/19/24 19:12 Freq: Status: Active Protocol: Document 04/25/24 11:39 LRN (Rec: 04/25/24 12:53 LRN [id number]) Sensation Evaluation Gross Sensation Gross Sensation WNL PT-OP-J Posture/Palpation/Skin Start: 04/19/24 19:12 Freq: Status: Active Protocol: Document 04/25/24 11:39 LRN (Rec: 04/25/24 12:53 LRN [id number]) Posture Evaluation Position Standing Head/C-Spine Posture Forward Head T-Spine Posture Flattened Shoulder Posture (L) Elevated Scapula Posture (L) Elevated Pelvis Posture (L) Iliac Crest Superior,(L) PSIS Posterior Weight Distribution Weight Shifted Right Hip Posture (L) Flexed,(R) Flexed Knee Posture (L) Genu Valgus,(L) Excess Flexion Comments Posture Comments L breast high, Trunk a little R SB, flexed at hips 22 deg's , L knee flexed 10 deg's. Palpation Assessment Location L/S Palpation Location L L/S paraspinals, QL, Gluteals Palpation Findings Soft Tissue Tightness,Muscle Guarding Palpation Details Tenderness at L PSIS. T/S Palpation Location Paraspinals Palpation Findings Soft Tissue Tightness,Muscle Guarding,Tenderness Palpation Details R side muscle guarding. Intrascapular ms pain. PT-OP-K Range of Motion Start: 04/19/24 19:12 Freq: Status: Active Protocol: Document 05/03/24 10:06 AB (Rec: 05/03/24 12:50 AB [id number]) Ankle and Foot Goniometric Range of Motion Ankle and Foot PROM right Ankle/Foot ROM WFL Yes Testing Position Standing Comments DF with knee flexed left knee 7 cm from wall with great toe to wall prior to heel off floor AROM right Ankle/Foot ROM WFL No Testing Position Supine Comments AROM DF with knee ext lacking 8 deg from neutral PROM left Ankle/Foot ROM WFL No Testing Position Standing Comments DF with knee flexed left knee 8.5 cm from wall with great toe to wall prior to heel off floor AROM left Ankle/Foot ROM WFL No Testing Position Supine Comments AROM DF with knee ext lacking 12 deg from neutral PT-OP-M Strength Start: 04/19/24 19:12 Freq: Status: Active Protocol: Document 04/29/24 09:09 LRN (Rec: 04/29/24 09:52 LRN [id number]) Ankle/Foot Strength Ankle and Foot Manual Muscle Testing Right Dorsiflexion (L4) 3+ Fair+ Plantarflexion (S1) 5 Normal Inversion 3+ Fair+ Eversion (S1) 4 Good Comments DF ROM is to neutral. Supination is 3+/5 Pronation is 4/5 Left Dorsiflexion (L4) 3+ Fair+ Plantarflexion (S1) 5 Normal Inversion 3+ Fair+ Eversion (S1) 4+ Good+ Comments DF ROM is to neutral. Supination is 3+/5 Pronation is 4+/5 PT-OP-Q Treatments Start: 04/19/24 19:12 Freq: Status: Active Protocol: Document 05/09/24 09:50 SP (Rec: 05/09/24 10:41 SP [id number]) Therapeutic Exercises Sitting Exercises Sit<>stand Sitting Exercise Name Use of arms for support. Side bilateral Equipment Used 1 UE 18 chair, no UE 18 chair +pillow Reps/Minutes X10 Comments uses momentum, cued hip hinge slow descend sit /c B knees apart Standing Exercises calf stretch Standing Exercise Name Doorway: Gastroc to soleus Resistance forefoot on rolled towel Equipment Used hands on doorframe- improved posture and no back pain Reps/Minutes one minute X1 each LE each stretch Comments verbal and visual cues, additional verbal tact to avoid toe out Wall standing Standing Exercise Name Posture correction with wall & w/o wall standing, EO/EC Equipment Used good postural alignment on wall Reps/Minutes 1 min x3 reps Comments R heel approx 1.5 from wall, L heel approx 3/4 from wall- cued TKE Self-Care/Home Management Treatment Education Patient Education Home Exercise Program,Pain Management,Posture Other Education Education and adjustment in gastroc&soleus stretch for LS alignment and comfort postioning for benefits increase ankle ROM use towel and doorframe support. PT-OP-T Assessment and Plan Start: 04/19/24 19:12 Freq: Status: Active Protocol: Document 05/09/24 09:50 SP (Rec: 05/09/24 10:41 SP [id number]) Physical Therapy Assessment Goals Four Impairment Decreased endurance & exer tolerance (gait 1 mile), PLOF- 2 miles w/cane Short Term Goal (STG) Improve ankle strength to decrease ankle pain with walking. STG Duration 06/24/24 Care Home Goal (LTG) Improve LE endurance with pt able to walk with cane for 4 laps around the neighborhood ( ~2 miles) with pain rated no more than 4/10. (Prior level of function: Able to walk 1 mile with back pain rated 3-4/ 10). LTG Duration 07/22/24 Three Impairment Decreased LE strength/balance with pt feeling insecure with stair abulation Short Term Goal (STG) Improve SLS and ankle strength with pt able to amb up/down 4 steps with rail w/o fear of falling. STG Duration 06/24/24 Care Home Goal (LTG) Improve function per LEFS ( initial eval score 24 = 60-79% impaired, score 17-31) with pt able to ambulate up/down 4- 5 stairs & a curb with SPC with confidence. LTG Duration 07/22/24 Two Impairment Pain UB (4/10) & LB (3-4/10) Short Term Goal (STG) Pt will be able to demonstrate proper body mechanics for ADLs (lifting, reaching, carrying objects with one hand ). STG Duration 05/20/24 [employer] Goal (LTG) Reduce standing hip flexion to be no greater than 5 deg's with pt able to static standing for 15-20' before needing to move (ex-in gracery line). LTG Duration 07/22/24 One Impairment Lacks appropriate self care HEP Short Term Goal (STG) Pt will be educated and demonstrate knowledge of proper sitting/standing posture. STG Duration 05/20/24 [employer] Goal (LTG) Pt will be independent in an effective self care HEP for core & ankle strengthening and mobility ex's, and general LE ex's. 04/29/24 HEP: Active Ankle IV/EV/DF/PF, and sit<>stand ex 's. LTG Duration 07/22/24 progressed 04/29/24 Assessment Summary Assessment Pt improved gastroc and Soleus stretch response with adjusment standing in doorway and towel roll under forefoot. Pt improved posture at way with cued x1 and self corrections TA for LS and TKE toward wall. Pt reports no LB during review stretching today . Cues for increase knee alignment with feet and flat pillow in chair for increased height and reduction UE support asc/descend sit in chair. Physical Therapy Plan Frequency and Duration Frequency of Treatment 2x/Week Duration of treatment (weeks) 12 Plan of Care Start Date 04/25/24 Plan of Care End Date 07/22/24 Therapeutic Interventions Therapeutic Interventions Balance Training,Gait Training ,Home Exercise Program,Manual Therapy,Neuromuscular Re- education,Self-Care/Home Management,Soft Tissue Mobilization,Therapeutic Activities,Therapeutic Exercises Modalities Cold Pack/Ice Massage,Electric Stimulation,Hot Packs Next Visit Focus/Plan Next Note Type Treatment Note Next Visit Plan (precaution R TKA). Add HEP: Assess Tinetti and/or UNDERWOOD assessment. Next: PT recheck ankle AROM (DF completed 05/03 ) Thoracic/Lumbar back pain rehab: posture training, gait /standing mechanics, mobility ex's of anterior hips and abdomen, strengthening of back /gluteals. Progressing to Ankle rehab ( radha) and DC shoulder rehab at pt request. Ankle Rehab: Assess ankle ROM , stairs, TUG, Gait speed/gait training. POC: Therapeutic Ex ( strengthening/ROM), Therapeutic Activity (transfer training), Gait & Balance training, Manual therapy (STM/ JMT), Pt Education (HEP, Edema and pain mgmt), modalities for pain.
--- NOTE | 2024-05-13 15:20 | PT.OTN ---
Current Diagnoses Other chronic pain (05/13/24) Pain in right shoulder (05/13/24) Pain in left shoulder (05/13/24) Pain in right ankle and joints of right foot (05/13/24) Pain in left ankle and joints of left foot (05/13/24) Pain in thoracic spine (05/13/24) Physical Therapy Treatment Note PT-OP-A Visit Information Start: 04/19/24 19:12 Freq: Status: Active Protocol: Document 05/13/24 14:38 SP (Rec: 05/13/24 16:03 SP [id number]) Out-Patient Physical Therapy Visit Information Visit Information Visit Type Treatment Note Visit Start Time 14:38 Visit Stop Time 15:20 Visit Number 5 (10/27 after PN) Number of BLOOD AND PLASMA LABORATORY ASSISTANT Visits 3 Evaluation Information Evaluation Date 04/25/24 Precautions Precautions Arthritis, bulging discs, 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 R TKA, [place] w/ hearing aides. PT-OP-B Current Condition Start: 04/19/24 19:12 Freq: Status: Active Protocol: Document 04/25/24 11:39 LRN (Rec: 04/25/24 12:53 LRN [id number]) Current Condition History of Current Condition Onset Date 3-4 months ago Current Complaints LBP>UBP, f/b ankles, f/b shoulders the least hindering. History of Current Condition Insidious onset of full body pain with worsening of symptoms 3-4 months ago and pains continuing to worsen; now needing help to manage the pain. LBP is constant, UBP hurts with standing in one place or sitting in uncomfortable chair , frequent pain in ankles, sometimes shoulders. Most difficult with ascending/ descending stairs. R ankles (TKA side) is worse than L ankles. States loss of capabilities she would like to get back (see Goals). Lives alone in [place]. Drives. Uses cane walking outside and to go up/down her one step (3- 4 step). States she has a high pain tolerance. Prior Treatments and Tests PT for back, Deanna Ellington, PT - 1 yr ago. Pt for R TKA, Homa Recinos, PT - 2020. Knee is okay. Treatment Goals Patient/Caregiver Goals Pt goals: - 4-5 Stairs is a barrier. Needs UE support to go up/down curb. - Walk w/o cane for 4 laps around neighborhood (2 miles) with cane. - community center coordinator one place for 15-20 ' before needing to move ( gracery line). Prior Functional Status Baseline Function- Gait Walking around neighborhood 4 laps (2 miles) with cane w/ tolerable pain. Baseline Function- Other Stand 15-20' before needing to move. Curb ascend/descend with cane, with moderate instability. Current Functional Impairments (Reported) Functional Limitations- ADL's Stands 5' before back hurts. Needs UE support to go up/down curb due to sense of instability. Functional Limitations- Mobility/Gait Walks 2 laps around the neighborhood (1 mile) with cane slowly with tolerable pain. Personal Factors Other Personal Factors That May Effect Lives alone. Drives self. Therapy/Recovery PT-OP-C Subjective Start: 04/19/24 19:12 Freq: Status: Active Protocol: Document 05/13/24 14:38 SP (Rec: 05/13/24 16:02 SP [id number]) OP-PT Subjective Patient Comments Patient Comments Pt reports was just muscle sore after last tx not pain. SHe stated change in support at doorway/frame for gastroc and soleus stretch /c towel under forefoot doesn't cause back pain. PT-OP-D Balance Start: 04/19/24 19:12 Freq: Status: Active Protocol: Document 05/13/24 14:38 SP (Rec: 05/13/24 16:02 SP [id number]) Underwood Balance Assessment Total Score Underwood Impairment Rating 20 to 39% Impaired (Score 34- 44) Tinetti Balance Assessment Scoring and Interpretation Interpretation of Scores Low risk for falls (>24) Tinetti Impairment Rating from Composite 1 to <20% Impaired (Score 23- Score 27) PT-OP-G Mobility & Gait Start: 04/19/24 19:12 Freq: Status: Active Protocol: Document 04/25/24 11:39 LRN (Rec: 04/25/24 12:53 LRN [id number]) OP Gait Assessment Gait Gait Assistance Required: Independent Distance (Feet) 60 Able to Maintain Weight Bearing Status Yes During Gait Assistive Devices Assistive Device Straight Cane Gait Deviations General Gait Pattern Decreased Stride Length,Flexed Trunk Factors Limiting Gait Function Factors Limiting Gait Function Decreased Strength,Pain,Poor Balance Stair Climbing Evaluation Comments Stair Climbing Comments Pt reporting able to go up/ down curb with SPC independently but feels unstable in her balance. PT-OP-H Neuro Start: 04/19/24 19:12 Freq: Status: Active Protocol: Document 04/25/24 11:39 LRN (Rec: 04/25/24 12:53 LRN [id number]) Sensation Evaluation Gross Sensation Gross Sensation WNL PT-OP-J Posture/Palpation/Skin Start: 04/19/24 19:12 Freq: Status: Active Protocol: Document 04/25/24 11:39 LRN (Rec: 04/25/24 12:53 LRN [id number]) Posture Evaluation Position Standing Head/C-Spine Posture Forward Head T-Spine Posture Flattened Shoulder Posture (L) Elevated Scapula Posture (L) Elevated Pelvis Posture (L) Iliac Crest Superior,(L) PSIS Posterior Weight Distribution Weight Shifted Right Hip Posture (L) Flexed,(R) Flexed Knee Posture (L) Genu Valgus,(L) Excess Flexion Comments Posture Comments L breast high, Trunk a little R SB, flexed at hips 22 deg's , L knee flexed 10 deg's. Palpation Assessment Location L/S Palpation Location L L/S paraspinals, QL, Gluteals Palpation Findings Soft Tissue Tightness,Muscle Guarding Palpation Details Tenderness at L PSIS. T/S Palpation Location Paraspinals Palpation Findings Soft Tissue Tightness,Muscle Guarding,Tenderness Palpation Details R side muscle guarding. Intrascapular ms pain. PT-OP-K Range of Motion Start: 04/19/24 19:12 Freq: Status: Active Protocol: Document 05/03/24 10:06 AB (Rec: 05/03/24 12:50 AB [id number]) Ankle and Foot Goniometric Range of Motion Ankle and Foot PROM right Ankle/Foot ROM WFL Yes Testing Position Standing Comments DF with knee flexed left knee 7 cm from wall with great toe to wall prior to heel off floor AROM right Ankle/Foot ROM WFL No Testing Position Supine Comments AROM DF with knee ext lacking 8 deg from neutral PROM left Ankle/Foot ROM WFL No Testing Position Standing Comments DF with knee flexed left knee 8.5 cm from wall with great toe to wall prior to heel off floor AROM left Ankle/Foot ROM WFL No Testing Position Supine Comments AROM DF with knee ext lacking 12 deg from neutral PT-OP-M Strength Start: 04/19/24 19:12 Freq: Status: Active Protocol: Document 04/29/24 09:09 LRN (Rec: 04/29/24 09:52 LRN [id number]) Ankle/Foot Strength Ankle and Foot Manual Muscle Testing Right Dorsiflexion (L4) 3+ Fair+ Plantarflexion (S1) 5 Normal Inversion 3+ Fair+ Eversion (S1) 4 Good Comments DF ROM is to neutral. Supination is 3+/5 Pronation is 4/5 Left Dorsiflexion (L4) 3+ Fair+ Plantarflexion (S1) 5 Normal Inversion 3+ Fair+ Eversion (S1) 4+ Good+ Comments DF ROM is to neutral. Supination is 3+/5 Pronation is 4+/5 PT-OP-Q Treatments Start: 04/19/24 19:12 Freq: Status: Active Protocol: Document 05/13/24 14:38 SP (Rec: 05/13/24 16:02 SP [id number]) Therapeutic Exercises Sitting Exercises Sit<>stand Sitting Exercise Name Use of arms for support. Side bilateral Equipment Used 1 UE 18 chair, no UE 18 chair +pillow Reps/Minutes X10 Comments uses momentum, cued hip hinge slow descend sit /c B knees apart no UEs 4 way ankle ex Sitting Exercise Name DF /c EV- edited and provided updated HO 05/13 Side bilateral Resistance TB #2 at forefoot Reps/Minutes 15 reps 5 SH Comments cued for ankle lift DF & EV hold Standing Exercises calf stretch Standing Exercise Name Doorway: Gastroc to soleus Resistance forefoot on rolled towel Equipment Used hands on doorframe- improved posture and no back pain Reps/Minutes one minute X1 each LE, knee straight and bent Comments cued head up, good foot alignment SLS Standing Exercise Name During UNDERWOOD testing Side bilateral Equipment Used Gait belt, PRN HR Reps/Minutes 1-2 sec each LE Comments SLS - 1-2 sec alok Wall standing Standing Exercise Name Posture correction with wall & w/o wall standing Resistance Cued L lateral SB level alignment, LB toward wall, head nod/retract,TKE R>L Reps/Minutes 1 min x3 reps Comments R heel approx 1 from wall, L heel approx 1/2 from wall- cued TKE PT-OP-T Assessment and Plan Start: 04/19/24 19:12 Freq: Status: Active Protocol: Document 05/13/24 14:38 SP (Rec: 05/13/24 16:02 SP [id number]) Physical Therapy Assessment Goals Four Impairment Decreased endurance & exer tolerance (gait 1 mile), PLOF- 2 miles w/cane Short Term Goal (STG) Improve ankle strength to decrease ankle pain with walking. 05/13/25: added DF /c EV TB #2 teal, LAQ TB #2. STG Duration 06/24/24 progressing 05/13/25 Senior Living Goal (LTG) Improve LE endurance with pt able to walk with cane for 4 laps around the neighborhood ( ~2 miles) with pain rated no more than 4/10. (Prior level of function: Able to walk 1 mile with back pain rated 3-4/ 10). LTG Duration 07/22/24 Three Impairment Decreased LE strength/balance with pt feeling insecure with stair abulation Short Term Goal (STG) Improve SLS and ankle strength with pt able to amb up/down 4 steps with rail w/o fear of falling. 05/13/24: SLS 1-2 sec Alok; TInetti Low fall risk 1- 20% impaired, UNDERWOOD 42/56 20-39 % impaired STG Duration 06/24/24 slow progression Senior Living Goal (LTG) Improve function per LEFS ( initial eval score 24 = 60-79% impaired, score 17-31) with pt able to ambulate up/down 4- 5 stairs & a curb with SPC with confidence. LTG Duration 07/22/24 Two Impairment Pain UB (4/10) & LB (3-4/10) Short Term Goal (STG) Pt will be able to demonstrate proper body mechanics for ADLs (lifting, reaching, carrying objects with one hand ). STG Duration 05/20/24 Residential Sales Manager Goal (LTG) Reduce standing hip flexion to be no greater than 5 deg's with pt able to static standing for 15-20' before needing to move (ex-in gracery line). LTG Duration 07/22/24 One Impairment Lacks appropriate self care HEP Short Term Goal (STG) Pt will be educated and demonstrate knowledge of proper sitting/standing posture. 05/13/24: progressing awareness posture standing with posture HEP and during calf stretch in doorway. STG Duration 05/20/24 progression 05/13/24 Senior Living Goal (LTG) Pt will be independent in an effective self care HEP for core & ankle strengthening and mobility ex's, and general LE ex's. 04/29/24 HEP: Active Ankle IV/EV/DF/PF, and sit<>stand ex 's. 05/13/24: edited ankle strengthening to resisted DF / c EV TB #2 at forefoot holds for foot clearnace gait. LTG Duration 07/22/24 progressed 05/13/24 Assessment Summary Assessment Pt improved posture occasional cues for head up during doorframe calf stretching. Cues for L trunk SB during wall posture and head nod CS retraction improved level and midline alignment, improving slow progression knee & hip ext at wall heel and knee TKE closer to wall heel 1 R, .5 L. Edited Alok ankle strengthening to DF /c EV with resistance to condense HOs for progression DF foot clearance during gait. Initiated resisted LAQ today for TKE and anterior leg strengthening support postural alignment and strength for standing. Pt would benefit from carryover TKE side stepping and forward/backward stepping then hurdles with encouragement postural alignment for functional balance progression and lessen UE support, tends to use SPC as needed for balance. Physical Therapy Plan Frequency and Duration Frequency of Treatment 2x/Week Duration of treatment (weeks) 12 Plan of Care Start Date 04/25/24 Plan of Care End Date 07/22/24 Therapeutic Interventions Therapeutic Interventions Balance Training,Gait Training ,Home Exercise Program,Manual Therapy,Neuromuscular Re- education,Self-Care/Home Management,Soft Tissue Mobilization,Therapeutic Activities,Therapeutic Exercises Modalities Cold Pack/Ice Massage,Electric Stimulation,Hot Packs Next Visit Focus/Plan Next Note Type Treatment Note Next Visit Plan (precaution R TKA). REview seated added LAQ, & DF/c EV. Next: PT recheck ankle AROM ( DF last completed 05/03) Thoracic/Lumbar back pain rehab: review HEP if needed posture training, gait/ standing mechanics, add mobility ex's of anterior hips and abdomen, strengthening of back/gluteals. Progressing to Ankle rehab ( laok) and DC shoulder rehab at pt request. Ankle Rehab: Assess ankle ROM , stairs, TUG, Gait speed/gait training. POC: Therapeutic Ex ( strengthening/ROM), Therapeutic Activity (transfer training), Gait & Balance training, Manual therapy (STM/ JMT), Pt Education (HEP, Edema and pain mgmt), modalities for pain.
--- NOTE | 2024-05-18 09:44 | PT.OTN ---
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 R TKA, [place] w/ hearing aides. PT-OP-B Current Condition Start: 04/19/24 19:12 Freq: Status: Active Protocol: Document 04/25/24 11:39 LRN (Rec: 04/25/24 12:53 LRN [id number]) Current Condition History of Current Condition Onset Date 3-4 months ago Current Complaints LBP>UBP, f/b ankles, f/b shoulders the least hindering. History of Current Condition Insidious onset of full body pain with worsening of symptoms 3-4 months ago and pains continuing to worsen; now needing help to manage the pain. LBP is constant, UBP hurts with standing in one place or sitting in uncomfortable chair , frequent pain in ankles, sometimes shoulders. Most difficult with ascending/ descending stairs. R ankles (TKA side) is worse than L ankles. States loss of capabilities she would like to get back (see Goals). Lives alone in [place]. Drives. Uses cane walking outside and to go up/down her one step (3- 4 step). States she has a high pain tolerance. Prior Treatments and Tests PT for back, Deanna Ellington, PT - 1 yr ago. Pt for R TKA, Homa Recinos, PT - 2020. Knee is okay. Treatment Goals Patient/Caregiver Goals Pt goals: - 4-5 Stairs is a barrier. Needs UE support to go up/down curb. - Walk w/o cane for 4 laps around neighborhood (2 miles) with cane. 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 Prior Functional Status Baseline Function- Gait Walking around neighborhood 4 laps (2 miles) with cane w/ tolerable pain. Baseline Function- Other Stand 15-20' before needing to move. Curb ascend/descend with cane, with moderate instability. Current Functional Impairments (Reported) Functional Limitations- ADL's Stands 5' before back hurts. Needs UE support to go up/down curb due to sense of instability. Functional Limitations- Mobility/Gait Walks 2 laps around the neighborhood (1 mile) with cane slowly with tolerable pain. Personal Factors Other Personal Factors That May Effect Lives alone. Drives self. Therapy/Recovery PT-OP-C Subjective Start: 04/19/24 19:12 Freq: Status: Active Protocol: Document 05/18/24 09:04 SP (Rec: 05/18/24 10:13 SP [id number]) OP-PT Subjective Patient Comments Patient Comments Pt reports feels getting stronger in ankles feeling better and less tired after exercises but upper back still hurts when stand length of time but better when move. PT-OP-D Balance Start: 04/19/24 19:12 Freq: Status: Active Protocol: Document 05/13/24 14:38 SP (Rec: 05/13/24 16:02 SP [id number]) Underwood Balance Assessment Total Score Underwood Impairment Rating 20 to 39% Impaired (Score 34- 44) Tinetti Balance Assessment Scoring and Interpretation Interpretation of Scores Low risk for falls (>24) Tinetti Impairment Rating from Composite 1 to <20% Impaired (Score 23- Score 27) PT-OP-G Mobility & Gait Start: 04/19/24 19:12 Freq: Status: Active Protocol: Document 04/25/24 11:39 LRN (Rec: 04/25/24 12:53 LRN [id number]) OP Gait Assessment Gait Gait Assistance Required: Independent Distance (Feet) 60 Able to Maintain Weight Bearing Status Yes During Gait Assistive Devices Assistive Device Straight Cane Gait Deviations General Gait Pattern Decreased Stride Length,Flexed Trunk Factors Limiting Gait Function Factors Limiting Gait Function Decreased Strength,Pain,Poor Balance Stair Climbing Evaluation Comments Stair Climbing Comments Pt reporting able to go up/ down curb with SPC independently but feels unstable in her balance. PT-OP-H Neuro Start: 04/19/24 19:12 Freq: Status: Active Protocol: Document 04/25/24 11:39 LRN (Rec: 04/25/24 12:53 LRN [id number]) Sensation Evaluation Gross Sensation Gross Sensation WNL PT-OP-J Posture/Palpation/Skin Start: 04/19/24 19:12 Freq: Status: Active Protocol: Document 04/25/24 11:39 LRN (Rec: 04/25/24 12:53 LRN [id number]) Posture Evaluation Position Standing Head/C-Spine Posture Forward Head T-Spine Posture Flattened Shoulder Posture (L) Elevated Scapula Posture (L) Elevated Pelvis Posture (L) Iliac Crest Superior,(L) PSIS Posterior Weight Distribution Weight Shifted Right Hip Posture (L) Flexed,(R) Flexed Knee Posture (L) Genu Valgus,(L) Excess Flexion Comments Posture Comments L breast high, Trunk a little R SB, flexed at hips 22 deg's , L knee flexed 10 deg's. Palpation Assessment Location L/S Palpation Location L L/S paraspinals, QL, Gluteals Palpation Findings Soft Tissue Tightness,Muscle Guarding Palpation Details Tenderness at L PSIS. T/S Palpation Location Paraspinals Palpation Findings Soft Tissue Tightness,Muscle Guarding,Tenderness Palpation Details R side muscle guarding. Intrascapular ms pain. PT-OP-K Range of Motion Start: 04/19/24 19:12 Freq: Status: Active Protocol: Document 05/03/24 10:06 AB (Rec: 05/03/24 12:50 AB [id number]) Ankle and Foot Goniometric Range of Motion Ankle and Foot PROM right Ankle/Foot ROM WFL Yes Testing Position Standing Comments DF with knee flexed left knee 7 cm from wall with great toe to wall prior to heel off floor AROM right Ankle/Foot ROM WFL No Testing Position Supine Comments AROM DF with knee ext lacking 8 deg from neutral PROM left Ankle/Foot ROM WFL No Testing Position Standing Comments DF with knee flexed left knee 8.5 cm from wall with great toe to wall prior to heel off floor AROM left Ankle/Foot ROM WFL No Testing Position Supine Comments AROM DF with knee ext lacking 12 deg from neutral PT-OP-M Strength Start: 04/19/24 19:12 Freq: Status: Active Protocol: Document 04/29/24 09:09 LRN (Rec: 04/29/24 09:52 LRN [id number]) Ankle/Foot Strength Ankle and Foot Manual Muscle Testing Right Dorsiflexion (L4) 3+ Fair+ Plantarflexion (S1) 5 Normal Inversion 3+ Fair+ Eversion (S1) 4 Good Comments DF ROM is to neutral. Supination is 3+/5 Pronation is 4/5 Left Dorsiflexion (L4) 3+ Fair+ Plantarflexion (S1) 5 Normal Inversion 3+ Fair+ Eversion (S1) 4+ Good+ Comments DF ROM is to neutral. Supination is 3+/5 Pronation is 4+/5 PT-OP-Q Treatments Start: 04/19/24 19:12 Freq: Status: Active Protocol: Document 05/18/24 09:04 SP (Rec: 05/18/24 10:13 SP [id number]) Therapeutic Exercises Supine Exercises serratus press Supine Exercise Name trialed in PT only for thoracic/scapular mobility Side bilateral Resistance AROM Equipment Used cane Reps/Minutes x8 reps (1 movement) Comments reports painfree Sidelying Exercises open book Sidelying Exercise Name trialed in PT only for thoracic/scapular mobility Side bilateral Resistance AROM Reps/Minutes 8 reps Comments tactile cues for scapular mobility Sitting Exercises Sit<>stand Sitting Exercise Name Use of arms for support. Side bilateral Equipment Used no UE 18 chair + 1pillow Reps/Minutes X10 Comments uses momentum, cued hip hinge slower descend sit /c B knees apart no UEs 4 way ankle ex Sitting Exercise Name DF /c EV Side bilateral Resistance TB #2 at forefoot Reps/Minutes 15 reps 5 SH Comments cued for ankle lift DF & EV hold Standing Exercises Wall standing Standing Exercise Name Posture correction with wall & w/o wall standing Resistance L lateral SB midline/level shld Equipment Used shown mirror front for self feedback improved midline even positioning Reps/Minutes 1 min x3 reps Comments B heels touching wall /c improved TKE /c knees parallel : on&off wall Therapeutic Activity Therapeutic Activity sit>supine Name log roll technique (didn't give HO) Reps/Minutes 2 Comments cued keeping shoulders with pelvis/LEs. Manual Therapy Treatment Consent Patient gave verbal consent for manual Yes treatment Soft Tissue Mobilization mid thoracic Body Location B: rhomboid, LT, UT, pec Mobilization Type Rolling Body Position Sidelying Comments gentle STMs Joint Mobilizations B scapulothoracic Joint PROM /c STMs Direction retraction/protraction/ depression/elevation Grade II Body Position SL Comments reports improve scapular mobility pnfree Self-Care/Home Management Treatment Education Patient Education Home Exercise Program,Pain Management,Posture Other Education Education provided for seated pillows behind back in recliner home, standing wall posture away from wall and spinal alignment during sit<> supine log roll technique use of TA needed better with reps, with reports araceli PT-OP-T Assessment and Plan Start: 04/19/24 19:12 Freq: Status: Active Protocol: Document 05/18/24 09:04 SP (Rec: 05/18/24 10:13 SP [id number]) Physical Therapy Assessment Goals Four Impairment Decreased endurance & exer tolerance (gait 1 mile), PLOF- 2 miles w/cane Short Term Goal (STG) Improve ankle strength to decrease ankle pain with walking. 05/13/25: added DF /c EV TB #2 teal, LAQ TB #2. 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 (Prior level of function: Able to walk 1 mile with back pain rated 3-4/ 10). LTG Duration 07/22/24 Three Impairment Decreased LE strength/balance with pt feeling insecure with stair abulation Short Term Goal (STG) Improve SLS and ankle strength with pt able to amb up/down 4 steps with rail w/o fear of falling. 05/13/24: SLS 1-2 sec Radha; TInetti /28 Low fall risk 1- 20% impaired, UNDER[place]OD 42/56 20-39 % impaired STG Duration 06/24/24 slow progression Assisted Goal (LTG) Improve function per LEFS ( initial eval score 24 = 60-79% impaired, score 17-31) with pt able to ambulate up/down 4- 5 stairs & a curb with SPC with confidence. LTG Duration 07/22/24 Two Impairment Pain UB (4/10) & LB (3-4) Short Term Goal (STG) Pt will be able to demonstrate proper body mechanics for ADLs (lifting, reaching, carrying objects with one hand ). 05/18/24: Progression: started ed/instruction postural alignment seated use pillows, standing on/off wall improved carryover and intiated seated and log roll technique for back health/spinal support. STG Duration 05/20/24 Progression 05/18/24 Owner Operator Tanker Truck Driver Goal (LTG) Reduce standing hip flexion to be no greater than 5 deg's with pt able to static standing for 15-20' before needing to move (ex-in gracery line). 04/3024: progression 1 improved knee/hip/postural alignment noted end tx today, has been working on wall posture. Measure if needed next tx. LTG Duration 07/22/24 progression: 05/18/24 One Impairment Lacks appropriate self care HEP Short Term Goal (STG) Pt will be educated and demonstrate knowledge of proper sitting/standing posture. 05/13/24: progressing awareness posture standing with posture HEP and during calf stretch in doorway. 05/18/24: progression: instruction seated use pillows in recliner for improved posture (not sacral sitting), verbalized and use pillows in PT today. STG Duration 05/20/24 progression 05/18/24 Assisted Goal (LTG) Pt will be independent in an effective self care HEP for core & ankle strengthening and mobility ex's, and general LE ex's. 04/29/24 HEP: Active Ankle IV/EV/DF/PF, and sit<>stand ex 's. 05/13/24: edited ankle strengthening to resisted DF / c EV TB #2 at forefoot holds for foot clearnace gait. 05/18/24: added open book and serratus press use can for scapular and thoracic mobility pnfree. LTG Duration 07/22/24 progressed 05/18/24 Assessment Summary Assessment Pt improved scapular and thoracic mobility post manual and initiated shld/scapular AROM use cane today serratus press & open book pnfree range for pain reduction and improve function. Reminded pt of elongated upright posture walking out PT carryover. Physical Therapy Plan Frequency and Duration Frequency of Treatment 2x/Week Duration of treatment (weeks) 12 Plan of Care Start Date 04/25/24 Plan of Care End Date 07/22/24 Therapeutic Interventions Therapeutic Interventions Balance Training,Gait Training ,Home Exercise Program,Manual Therapy,Neuromuscular Re- education,Self-Care/Home Management,Soft Tissue Mobilization,Therapeutic Activities,Therapeutic Exercises Modalities Cold Pack/Ice Massage,Electric Stimulation,Hot Packs Next Visit Focus/Plan Next Note Type Treatment Note Next Visit Plan (precaution R TKA). Review ankle HEP as needed, initiated open book and serratus press for TS mobilty strengthening. Next: PT recheck ankle AROM ( DF last completed 05/03) Thoracic/Lumbar back pain rehab: review HEP if needed posture training, gait/ standing mechanics, add mobility ex's of anterior hips and abdomen, strengthening of back/gluteals. Progressing to Ankle rehab ( radha) and DC shoulder rehab at pt request. Ankle Rehab: Assess ankle ROM , stairs, TUG, Gait speed/gait training. POC: Therapeutic Ex ( strengthening/ROM), Therapeutic Activity (transfer training), Gait & Balance training, Manual therapy (STM/ JMT), Pt Education (HEP, Edema and pain mgmt), modalities for pain.
--- NOTE | 2024-05-24 15:40 | PT.OTN ---
Current Diagnoses Other chronic pain (05/24/24) Pain in right shoulder (05/24/24) Pain in left shoulder (05/24/24) Pain in right ankle and joints of right foot (05/24/24) Pain in left ankle and joints of left foot (05/24/24) Pain in thoracic spine (05/24/24) Physical Therapy Treatment Note PT-OP-A Visit Information Start: 04/19/24 19:12 Freq: Status: Active Protocol: Document 05/24/24 14:36 LRN (Rec: 05/24/24 15:17 LRN [id number]) Out-Patient Physical Therapy Visit Information Visit Information Visit Type Treatment Note Visit Start Time 14:36 Visit Stop Time 15:17 Visit Number 7 (01/26 after PN) Evaluation Information Evaluation Date 04/25/24 Precautions Precautions Arthritis, bulging discs, 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 R TKA, INAJA w/ hearing aides. PT-OP-B Current Condition Start: 04/19/24 19:12 Freq: Status: Active Protocol: Document 04/25/24 11:39 LRN (Rec: 04/25/24 12:53 LRN [id number]) Current Condition History of Current Condition Onset Date 3-4 months ago Current Complaints LBP>UBP, f/b ankles, f/b shoulders the least hindering. History of Current Condition Insidious onset of full body pain with worsening of symptoms 3-4 months ago and pains continuing to worsen; now needing help to manage the pain. LBP is constant, UBP hurts with standing in one place or sitting in uncomfortable chair , frequent pain in ankles, sometimes shoulders. Most difficult with ascending/ descending stairs. R ankles (TKA side) is worse than L ankles. States loss of capabilities she would like to get back (see Goals). Lives alone in [place]. Drives. Uses cane walking outside and to go up/down her one step (3- 4 step). States she has a high pain tolerance. Prior Treatments and Tests PT for back, Deanna Ellington, PT - 1 yr ago. Pt for R TKA, Homa Recinos, PT - 2020. Knee is okay. Treatment Goals Patient/Caregiver Goals Pt goals: - 4-5 Stairs is a barrier. Needs UE support to go up/down curb. - Walk w/o cane for 4 laps around neighborhood (2 miles) with cane. 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 Prior Functional Status Baseline Function- Gait Walking around neighborhood 4 laps (2 miles) with cane w/ tolerable pain. Baseline Function- Other Stand 15-20' before needing to move. Curb ascend/descend with cane, with moderate instability. Current Functional Impairments (Reported) Functional Limitations- ADL's Stands 5' before back hurts. Needs UE support to go up/down curb due to sense of instability. Functional Limitations- Mobility/Gait Walks 2 laps around the neighborhood (1 mile) with cane slowly with tolerable pain. Personal Factors Other Personal Factors That May Effect Lives alone. Drives self. Therapy/Recovery PT-OP-C Subjective Start: 04/19/24 19:12 Freq: Status: Active Protocol: Document 05/24/24 14:36 LRN (Rec: 05/24/24 15:17 LRN [id number]) OP-PT Subjective Patient Comments Patient Comments Hasn't been able to walk due to bad weather. R ankle hurts after ankle ex's at home. PT-OP-D Balance Start: 04/19/24 19:12 Freq: Status: Active Protocol: Document 05/13/24 14:38 SP (Rec: 05/13/24 16:02 SP [id number]) Underwood Balance Assessment Total Score Underwood Impairment Rating 20 to 39% Impaired (Score 34- 44) Tinetti Balance Assessment Scoring and Interpretation Interpretation of Scores Low risk for falls (>24) Tinetti Impairment Rating from Composite 1 to <20% Impaired (Score 23- Score 27) PT-OP-G Mobility & Gait Start: 04/19/24 19:12 Freq: Status: Active Protocol: Document 04/25/24 11:39 LRN (Rec: 04/25/24 12:53 LRN [id number]) OP Gait Assessment Gait Gait Assistance Required: Independent Distance (Feet) 60 Able to Maintain Weight Bearing Status Yes During Gait Assistive Devices Assistive Device Straight Cane Gait Deviations General Gait Pattern Decreased Stride Length,Flexed Trunk Factors Limiting Gait Function Factors Limiting Gait Function Decreased Strength,Pain,Poor Balance Stair Climbing Evaluation Comments Stair Climbing Comments Pt reporting able to go up/ down curb with SPC independently but feels unstable in her balance. PT-OP-H Neuro Start: 04/19/24 19:12 Freq: Status: Active Protocol: Document 04/25/24 11:39 LRN (Rec: 04/25/24 12:53 LRN [id number]) Sensation Evaluation Gross Sensation Gross Sensation WNL PT-OP-J Posture/Palpation/Skin Start: 04/19/24 19:12 Freq: Status: Active Protocol: Document 04/25/24 11:39 LRN (Rec: 04/25/24 12:53 LRN [id number]) Posture Evaluation Position Standing Head/C-Spine Posture Forward Head T-Spine Posture Flattened Shoulder Posture (L) Elevated Scapula Posture (L) Elevated Pelvis Posture (L) Iliac Crest Superior,(L) PSIS Posterior Weight Distribution Weight Shifted Right Hip Posture (L) Flexed,(R) Flexed Knee Posture (L) Genu Valgus,(L) Excess Flexion Comments Posture Comments L breast high, Trunk a little R SB, flexed at hips 22 deg's , L knee flexed 10 deg's. Palpation Assessment Location L/S Palpation Location L L/S paraspinals, QL, Gluteals Palpation Findings Soft Tissue Tightness,Muscle Guarding Palpation Details Tenderness at L PSIS. T/S Palpation Location Paraspinals Palpation Findings Soft Tissue Tightness,Muscle Guarding,Tenderness Palpation Details R side muscle guarding. Intrascapular ms pain. PT-OP-K Range of Motion Start: 04/19/24 19:12 Freq: Status: Active Protocol: Document 05/03/24 10:06 AB (Rec: 05/03/24 12:50 AB [id number]) Ankle and Foot Goniometric Range of Motion Ankle and Foot PROM right Ankle/Foot ROM WFL Yes Testing Position Standing Comments DF with knee flexed left knee 7 cm from wall with great toe to wall prior to heel off floor AROM right Ankle/Foot ROM WFL No Testing Position Supine Comments AROM DF with knee ext lacking 8 deg from neutral PROM left Ankle/Foot ROM WFL No Testing Position Standing Comments DF with knee flexed left knee 8.5 cm from wall with great toe to wall prior to heel off floor AROM left Ankle/Foot ROM WFL No Testing Position Supine Comments AROM DF with knee ext lacking 12 deg from neutral PT-OP-M Strength Start: 04/19/24 19:12 Freq: Status: Active Protocol: Document 04/29/24 09:09 LRN (Rec: 04/29/24 09:52 LRN [id number]) Ankle/Foot Strength Ankle and Foot Manual Muscle Testing Right Dorsiflexion (L4) 3+ Fair+ Plantarflexion (S1) 5 Normal Inversion 3+ Fair+ Eversion (S1) 4 Good Comments DF ROM is to neutral. Supination is 3+/5 Pronation is 4/5 Left Dorsiflexion (L4) 3+ Fair+ Plantarflexion (S1) 5 Normal Inversion 3+ Fair+ Eversion (S1) 4+ Good+ Comments DF ROM is to neutral. Supination is 3+/5 Pronation is 4+/5 PT-OP-Q Treatments Start: 04/19/24 19:12 Freq: Status: Active Protocol: Document 05/24/24 14:36 LRN (Rec: 05/24/24 15:17 LRN [id number]) Therapeutic Exercises Supine Exercises serratus press Supine Exercise Name thoracic/scapular mobility-HEP Side bilateral Resistance AROM Equipment Used cane Reps/Minutes 10x reps (1 movement) Comments reports painfree Sidelying Exercises open book Sidelying Exercise Name trialed in PT only for thoracic/scapular mobility Side bilateral Resistance AROM Reps/Minutes 10 reps Comments Pt cued for head to drive the motion. Sitting Exercises Knee ext Side bilateral Equipment Used L1 TB Reps/Minutes 10x each Sit<>stand Sitting Exercise Name TB above knees. Hip AB w/ transfer & Use of arms for support. Side bilateral Equipment Used plinth, L1 TB Reps/Minutes X10 Comments Breath w/sit<>stand cued to push out on knees agst band w/ transfer 4 way ankle ex Sitting Exercise Name DF /c EV Side bilateral Reps/Minutes 15 reps 1-2 SH Comments cued for ankle lift DF & EV hold Standing Exercises Anterior hip stretch Standing Exercise Name Gastroc stretch position. Side bilateral Reps/Minutes 1' hold each Comments Cued to push hip fwd on the trailing leg. calf stretch Standing Exercise Name Gastroc stretch at stair rails Equipment Used no back pain Reps/Minutes one minute X1 each LE, front knee bent Comments cued head up, good foot alignment Wall standing Standing Exercise Name Posture correction with wall & w/o wall standing Resistance L lateral SB midline/level shld Equipment Used Cued pt for TA tightening to decr possible L/S radiculopathy into lwr legs Reps/Minutes 1 min x2 reps Comments B heels touching wall /c improved TKE /c knees parallel : on&off wall Therapeutic Activity Therapeutic Activity sit>supine Name log roll technique Reps/Minutes 2 Comments cued keeping shoulders with pelvis/LEs. Self-Care/Home Management Treatment Education Other Education Pt educated in log roll transfers with breath and Kegel, and sit<>stand with TB around knees. Briefly discussed pt posture with needed corrections for anterior pelvic tilt and tight hip flexors. Activities Self-Care/Home Management Activities HO issued for Bed mobility with writting I/S for sit<> stand with breath & Kegel. PT-OP-T Assessment and Plan Start: 04/19/24 19:12 Freq: Status: Active Protocol: Document 05/24/24 14:36 LRN (Rec: 05/24/24 15:17 LRN [id number]) Physical Therapy Assessment Goals Four Impairment Decreased endurance & exer tolerance (gait 1 mile), PLOF- 2 miles w/cane Short Term Goal (STG) Improve ankle strength to decrease ankle pain with walking. 05/13/25: added DF /c EV TB #2 teal, LAQ TB #2. STG Duration 06/24/24 progressing 05/13/25 Shelter Goal (LTG) Improve LE endurance with pt able to walk with cane for 4 laps around the neighborhood ( ~2 miles) with pain rated no more than 4/10. (Prior level of function: Able to walk 1 mile with back pain rated 3-4/ 10). LTG Duration 07/22/24 Three Impairment Decreased LE strength/balance with pt feeling insecure with stair abulation Short Term Goal (STG) Improve SLS and ankle strength with pt able to amb up/down 4 steps with rail w/o fear of falling. 05/13/24: SLS 1-2 sec Alok; TInetti Low fall risk 1- 20% impaired, UNDERWOOD 42/56 20-39 % impaired STG Duration 06/24/24 slow progression Field Support Rep Goal (LTG) Improve function per LEFS ( initial eval score 24 = 60-79% impaired, score 17-31) with pt able to ambulate up/down 4- 5 stairs & a curb with SPC with confidence. LTG Duration 07/22/24 Two Impairment Pain UB (4/10) & LB (3-4/10) Short Term Goal (STG) Pt will be able to demonstrate proper body mechanics for ADLs (lifting, reaching, carrying objects with one hand ). 05/18/24: Progression: started ed/instruction postural alignment seated use pillows, standing on/off wall improved carryover and intiated seated and log roll technique for back health/spinal support. STG Duration 05/20/24 Progression 05/18/24 Field Support Rep Goal (LTG) Reduce standing hip flexion to be no greater than 5 deg's with pt able to static standing for 15-20' before needing to move (ex-in gracery line). 04/3024: progression 1 improved knee/hip/postural alignment noted end tx today, has been working on wall posture. Measure if needed next tx. LTG Duration 07/22/24 progression: 05/18/24 One Impairment Lacks appropriate self care HEP Short Term Goal (STG) Pt will be educated and demonstrate knowledge of proper sitting/standing posture. 05/13/24: progressing awareness posture standing with posture HEP and during calf stretch in doorway. 05/18/24: progression: instruction seated use pillows in recliner for improved posture (not sacral sitting), verbalized and use pillows in PT today. 05/24/24: Pt educated in proper posture with wall standing awareness training. STG Duration 05/20/24 progression 05/24/24 Shelter Goal (LTG) Pt will be independent in an effective self care HEP for core & ankle strengthening and mobility ex's, and general LE ex's. 04/29/24 HEP: Active Ankle IV/EV/DF/PF, and sit<>stand ex 's. 05/13/24: edited ankle strengthening to resisted DF / c EV TB #2 at forefoot holds for foot clearnace gait. 05/18/24: added open book and serratus press use can for scapular and thoracic mobility pnfree. 05/24/24: HO issued for Bed mobility with writting I/S for sit<>stand with breath & Kegel. LTG Duration 07/22/24 progressed 05/18/24 Assessment Summary Assessment 84 yo female with pain in multiple areas of her body, w/ rehab focus on reducing upper & lower back pain and R>L ankle pain to be able to walk, stand, and ambulate longer before being limited by pain. Today, she c/o her R ankle has been a little tender after exers at home and after therapy today; therefore needs a slower progression with strengthening. No difficulties with open book and serratus press. Pt needs further postural education and coorections. Physical Therapy Plan Frequency and Duration Frequency of Treatment 2x/Week Duration of treatment (weeks) 12 Plan of Care Start Date 04/25/24 Plan of Care End Date 07/22/24 Next Visit Focus/Plan Next Note Type Treatment Note Next Visit Plan (precaution R TKA). Next: PT recheck ankle AROM (DF last completed 05/03), further postural education/training w/ handout as reminder of posture ; Start back with AROM for ankles and progress with reduced resistance and reps to progress strengthening without increasing ankle pain. Cont T/S mobilty strengthening. Thoracic/Lumbar back pain rehab: gait/standing mechanics, add mobility ex's of anterior hips and abdomen, strengthening of back/gluteals . Progressing to Ankle rehab ( alok) and DC shoulder rehab at pt request. Ankle Rehab: Assess ankle ROM , stairs, TUG, Gait speed/gait training. POC: Therapeutic Ex ( strengthening/ROM), Therapeutic Activity (transfer training), Gait & Balance training, Manual therapy (STM/ JMT), Pt Education (HEP, Edema and pain mgmt), modalities for pain.
--- NOTE | 2024-05-27 10:32 | PT.OTN ---
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 R TKA, [facility] w/ hearing aides. PT-OP-B Current Condition Start: 04/19/24 19:12 Freq: Status: Active Protocol: Document 04/25/24 11:39 LRN (Rec: 04/25/24 12:53 LRN [id number]) Current Condition History of Current Condition Onset Date 3-4 months ago Current Complaints LBP>UBP, f/b ankles, f/b shoulders the least hindering. History of Current Condition Insidious onset of full body pain with worsening of symptoms 3-4 months ago and pains continuing to worsen; now needing help to manage the pain. LBP is constant, UBP hurts with standing in one place or sitting in uncomfortable chair , frequent pain in ankles, sometimes shoulders. Most difficult with ascending/ descending stairs. R ankles (TKA side) is worse than L ankles. States loss of capabilities she would like to get back (see Goals). Lives alone in [place]. Drives. Uses cane walking outside and to go up/down her one step (3- 4 step). States she has a high pain tolerance. Prior Treatments and Tests PT for back, Deanna Ellington, PT - 1 yr ago. Pt for R TKA, Homa Recinos, PT - 2020. Knee is okay. Treatment Goals Patient/Caregiver Goals Pt goals: - 4-5 Stairs is a barrier. Needs UE support to go up/down curb. - Walk w/o cane for 4 laps around neighborhood (2 miles) with cane. 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 Prior Functional Status Baseline Function- Gait Walking around neighborhood 4 laps (2 miles) with cane w/ tolerable pain. Baseline Function- Other Stand 15-20' before needing to move. Curb ascend/descend with cane, with moderate instability. Current Functional Impairments (Reported) Functional Limitations- ADL's Stands 5' before back hurts. Needs UE support to go up/down curb due to sense of instability. Functional Limitations- Mobility/Gait Walks 2 laps around the neighborhood (1 mile) with cane slowly with tolerable pain. Personal Factors Other Personal Factors That May Effect Lives alone. Drives self. Therapy/Recovery PT-OP-C Subjective Start: 04/19/24 19:12 Freq: Status: Active Protocol: Document 05/27/24 09:46 SP (Rec: 05/27/24 10:48 SP [id number]) OP-PT Subjective Patient Comments Patient Comments Pt reports her back is getting better because it feels looser. Can do the STS with arms front but to hard and unable to complete with band around her knees. She mentioned the calf stretch with towel under forefoot is getting to cause calf cramps andwonder if towel is to much now. PT-OP-D Balance Start: 04/19/24 19:12 Freq: Status: Active Protocol: Document 05/13/24 14:38 SP (Rec: 05/13/24 16:02 SP [id number]) Underwood Balance Assessment Total Score Underwood Impairment Rating 20 to 39% Impaired (Score 34- 44) Tinetti Balance Assessment Scoring and Interpretation Interpretation of Scores Low risk for falls (>24) Tinetti Impairment Rating from Composite 1 to <20% Impaired (Score 23- Score 27) PT-OP-G Mobility & Gait Start: 04/19/24 19:12 Freq: Status: Active Protocol: Document 04/25/24 11:39 LRN (Rec: 04/25/24 12:53 LRN [id number]) OP Gait Assessment Gait Gait Assistance Required: Independent Distance (Feet) 60 Able to Maintain Weight Bearing Status Yes During Gait Assistive Devices Assistive Device Straight Cane Gait Deviations General Gait Pattern Decreased Stride Length,Flexed Trunk Factors Limiting Gait Function Factors Limiting Gait Function Decreased Strength,Pain,Poor Balance Stair Climbing Evaluation Comments Stair Climbing Comments Pt reporting able to go up/ down curb with SPC independently but feels unstable in her balance. PT-OP-H Neuro Start: 04/19/24 19:12 Freq: Status: Active Protocol: Document 04/25/24 11:39 LRN (Rec: 04/25/24 12:53 LRN [id number]) Sensation Evaluation Gross Sensation Gross Sensation WNL PT-OP-J Posture/Palpation/Skin Start: 04/19/24 19:12 Freq: Status: Active Protocol: Document 04/25/24 11:39 LRN (Rec: 04/25/24 12:53 LRN [id number]) Posture Evaluation Position Standing Head/C-Spine Posture Forward Head T-Spine Posture Flattened Shoulder Posture (L) Elevated Scapula Posture (L) Elevated Pelvis Posture (L) Iliac Crest Superior,(L) PSIS Posterior Weight Distribution Weight Shifted Right Hip Posture (L) Flexed,(R) Flexed Knee Posture (L) Genu Valgus,(L) Excess Flexion Comments Posture Comments L breast high, Trunk a little R SB, flexed at hips 22 deg's , L knee flexed 10 deg's. Palpation Assessment Location L/S Palpation Location L L/S paraspinals, QL, Gluteals Palpation Findings Soft Tissue Tightness,Muscle Guarding Palpation Details Tenderness at L PSIS. T/S Palpation Location Paraspinals Palpation Findings Soft Tissue Tightness,Muscle Guarding,Tenderness Palpation Details R side muscle guarding. Intrascapular ms pain. PT-OP-K Range of Motion Start: 04/19/24 19:12 Freq: Status: Active Protocol: Document 05/03/24 10:06 AB (Rec: 05/03/24 12:50 AB [id number]) Ankle and Foot Goniometric Range of Motion Ankle and Foot PROM right Ankle/Foot ROM WFL Yes Testing Position Standing Comments DF with knee flexed left knee 7 cm from wall with great toe to wall prior to heel off floor AROM right Ankle/Foot ROM WFL No Testing Position Supine Comments AROM DF with knee ext lacking 8 deg from neutral PROM left Ankle/Foot ROM WFL No Testing Position Standing Comments DF with knee flexed left knee 8.5 cm from wall with great toe to wall prior to heel off floor AROM left Ankle/Foot ROM WFL No Testing Position Supine Comments AROM DF with knee ext lacking 12 deg from neutral PT-OP-M Strength Start: 04/19/24 19:12 Freq: Status: Active Protocol: Document 04/29/24 09:09 LRN (Rec: 04/29/24 09:52 LRN [id number]) Ankle/Foot Strength Ankle and Foot Manual Muscle Testing Right Dorsiflexion (L4) 3+ Fair+ Plantarflexion (S1) 5 Normal Inversion 3+ Fair+ Eversion (S1) 4 Good Comments DF ROM is to neutral. Supination is 3+/5 Pronation is 4/5 Left Dorsiflexion (L4) 3+ Fair+ Plantarflexion (S1) 5 Normal Inversion 3+ Fair+ Eversion (S1) 4+ Good+ Comments DF ROM is to neutral. Supination is 3+/5 Pronation is 4+/5 PT-OP-Q Treatments Start: 04/19/24 19:12 Freq: Status: Active Protocol: Document 05/27/24 09:46 SP (Rec: 05/27/24 10:48 SP [id number]) Therapeutic Exercises Sitting Exercises Knee ext Side bilateral Equipment Used L2 TB (under 1 foot, around front ankle of other) Reps/Minutes 10x each Comments good muscle tiring no pain Sit<>stand Sitting Exercise Name TB above knees. Hip AB w/ transfer & Use of arms for support. Side bilateral Equipment Used plinth, L1 TB Reps/Minutes X10 Comments Breath w/sit<>stand cued to push out on knees agst band w/ transfer 4 way ankle ex Sitting Exercise Name DF /c EV Side bilateral Resistance Ed and performand no TB > only AROM only at this time Reps/Minutes 15 reps (no hold) Comments cued for upright posture, for ankle lift DF & EV hold Standing Exercises Anterior hip stretch Standing Exercise Name Gastroc stretch position. Side bilateral Equipment Used Cued upright posture, neutral pelvis /c TA, wt shift fwd into front LE Reps/Minutes 15 SH x2 reps Comments back leg TKE, allow heel lift- good front hip stretch calf stretch Standing Exercise Name 1. gastroc stretch2. soleus stretch Resistance in doorway, hands on frame Equipment Used Cued upright posture, neutral pelvis /c TA, wt shift fwd into front LE Reps/Minutes 15 SH x2 Comments knee straight gastroc, knee bent soleus- better stretch no ankle/back pain Wall standing Standing Exercise Name Posture correction with wall & w/o wall standing Resistance L lateral SB midline/level shld Equipment Used Cued pt for TA tightening to decr possible L/S radiculopathy into lwr legs Reps/Minutes 1 min x2 reps Comments B heels touching wall /c improved TKE /c knees parallel : on&off wall Self-Care/Home Management Treatment Education Patient Education Home Exercise Program,Pain Management,Posture Other Education 20 min: Instruction with provided HO for seated and standing posture with carryover wall posture performing at home. To hard to focus breath with STS, discussed TA and posture ascend/descend better, no pain . PT-OP-T Assessment and Plan Start: 04/19/24 19:12 Freq: Status: Active Protocol: Document 05/27/24 09:46 SP (Rec: 05/27/24 10:48 SP [id number]) Physical Therapy Assessment Goals Four Impairment Decreased endurance & exer tolerance (gait 1 mile), PLOF- 2 miles w/cane Short Term Goal (STG) Improve ankle strength to decrease ankle pain with walking. 05/13/25: added DF /c EV TB #2 teal, LAQ TB #2. STG Duration 06/24/24 progressing 05/13/25 Clerk Secretary Goal (LTG) Improve LE endurance with pt able to walk with cane for 4 laps around the neighborhood ( ~2 miles) with pain rated no more than 4/10. (Prior level of function: Able to walk 1 mile with back pain rated 3-4/ 10). LTG Duration 07/22/24 Three Impairment Decreased LE strength/balance with pt feeling insecure with stair abulation Short Term Goal (STG) Improve SLS and ankle strength with pt able to amb up/down 4 steps with rail w/o fear of falling. 05/13/24: SLS 1-2 sec Alok; TInetti Low fall risk 1- 20% impaired, UNDERWOOD 42/56 20-39 % impaired STG Duration 06/24/24 slow progression Clerk Secretary Goal (LTG) Improve function per LEFS ( initial eval score 24 = 60-79% impaired, score 17-31) with pt able to ambulate up/down 4- 5 stairs & a curb with SPC with confidence. LTG Duration 07/22/24 Two Impairment Pain UB (10/27) & LB (3-4) Short Term Goal (STG) Pt will be able to demonstrate proper body mechanics for ADLs (lifting, reaching, carrying objects with one hand ). 05/18/24: Progression: started ed/instruction postural alignment seated use pillows, standing on/off wall improved carryover and intiated seated and log roll technique for back health/spinal support. STG Duration 05/20/24 Progression 05/18/24 Custodial Goal (LTG) Reduce standing hip flexion to be no greater than 5 deg's with pt able to static standing for 15-20' before needing to move (ex-in gracery line). 04/3024: progression 1 improved knee/hip/postural alignment noted end tx today, has been working on wall posture. Measure if needed next tx. LTG Duration 07/22/24 progression: 05/18/24 One Impairment Lacks appropriate self care HEP Short Term Goal (STG) Pt will be educated and demonstrate knowledge of proper sitting/standing posture. 05/13/24: progressing awareness posture standing with posture HEP and during calf stretch in doorway. 05/18/24: progression: instruction seated use pillows in recliner for improved posture (not sacral sitting), verbalized and use pillows in PT today. 05/24/24: Pt educated in proper posture with wall standing awareness training. STG Duration 05/20/24 progression 05/24/24 Custodial Goal (LTG) Pt will be independent in an effective self care HEP for core & ankle strengthening and mobility ex's, and general LE ex's. 04/29/24 HEP: Active Ankle IV/EV/DF/PF, and sit<>stand ex 's. 05/13/24: edited ankle strengthening to resisted DF / c EV TB #2 at forefoot holds for foot clearnace gait. 05/18/24: added open book and serratus press use can for scapular and thoracic mobility pnfree. 05/24/24: HO issued for Bed mobility with writting I/S for sit<>stand with breath & Kegel. LTG Duration 07/22/24 progressed 05/18/24 Assessment Summary Assessment Pt improved posture understanding and noted corrections during instruction use HOs for reference sitting and standing. Continued calf and hip flexor stretch postioning at doorframe and updated HO for better performance and elimintation pain reported. Hold band with STS to hard, better ed maintain space between knees at this time /c UE support ascend stand no UE descend sit performed. Will progress thoracic and posturaal strengthening next tx. Physical Therapy Plan Frequency and Duration Frequency of Treatment 2x/Week Duration of treatment (weeks) 12 Plan of Care Start Date 04/25/24 Plan of Care End Date 07/22/24 Therapeutic Interventions Therapeutic Interventions Balance Training,Gait Training ,Home Exercise Program,Manual Therapy,Neuromuscular Re- education,Self-Care/Home Management,Soft Tissue Mobilization,Therapeutic Activities,Therapeutic Exercises Modalities Cold Pack/Ice Massage,Electric Stimulation,Hot Packs Next Visit Focus/Plan Next Note Type Treatment Note Next Visit Plan (precaution R TKA). Next: PT recheck ankle AROM (DF last completed 05/03), further postural education/training w/ handout as reminder of posture ; Start back with AROM for ankles and progress with reduced resistance and reps to progress strengthening without increasing ankle pain. Cont T/S mobilty strengthening. Thoracic/Lumbar back pain rehab: gait/standing mechanics, add mobility ex's of anterior hips and abdomen, strengthening of back/gluteals . Progressing to Ankle rehab ( alok) and DC shoulder rehab at pt request. Ankle Rehab: Assess ankle ROM , stairs, TUG, Gait speed/gait training. POC: Therapeutic Ex ( strengthening/ROM), Therapeutic Activity (transfer training), Gait & Balance training, Manual therapy (STM/ JMT), Pt Education (HEP, Edema and pain mgmt), modalities for pain.
--- NOTE | 2024-05-31 13:48 | PT.OTN ---
Current Diagnoses Other chronic pain (05/31/24) Pain in right shoulder (05/31/24) Pain in left shoulder (05/31/24) Pain in right ankle and joints of right foot (05/31/24) Pain in left ankle and joints of left foot (05/31/24) Pain in thoracic spine (05/31/24) Physical Therapy Treatment Note PT-OP-A Visit Information Start: 04/19/24 19:12 Freq: Status: Active Protocol: Document 05/31/24 13:00 SP (Rec: 05/31/24 13:52 SP [id number]) Out-Patient Physical Therapy Visit Information Visit Information Visit Type Treatment Note Visit Start Time 13:00 Visit Stop Time 13:48 Visit Number 9 (03/29 with PN) Number of DEPOSIT CLERK Visits 2 Evaluation Information Evaluation Date 04/25/24 Precautions Precautions Arthritis, bulging discs, 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 R TKA, NISQUALLY w/ hearing aides. PT-OP-B Current Condition Start: 04/19/24 19:12 Freq: Status: Active Protocol: Document 04/25/24 11:39 LRN (Rec: 04/25/24 12:53 LRN [id number]) Current Condition History of Current Condition Onset Date 3-4 months ago Current Complaints LBP>UBP, f/b ankles, f/b shoulders the least hindering. History of Current Condition Insidious onset of full body pain with worsening of symptoms 3-4 months ago and pains continuing to worsen; now needing help to manage the pain. LBP is constant, UBP hurts with standing in one place or sitting in uncomfortable chair , frequent pain in ankles, sometimes shoulders. Most difficult with ascending/ descending stairs. R ankles (TKA side) is worse than L ankles. States loss of capabilities she would like to get back (see Goals). Lives alone in [place]. Drives. Uses cane walking outside and to go up/down her one step (3- 4 step). States she has a high pain tolerance. Prior Treatments and Tests PT for back, Deanna Ellington, PT - 1 yr ago. Pt for R TKA, Homa Recinos, PT - 2020. Knee is okay. Treatment Goals Patient/Caregiver Goals Pt goals: - 4-5 Stairs is a barrier. Needs UE support to go up/down curb. - Walk w/o cane for 4 laps around neighborhood (2 miles) with cane. - rf test engineer one place for 15-20 ' before needing to move ( gracery line). Prior Functional Status Baseline Function- Gait Walking around neighborhood 4 laps (2 miles) with cane w/ tolerable pain. Baseline Function- Other Stand 15-20' before needing to move. Curb ascend/descend with cane, with moderate instability. Current Functional Impairments (Reported) Functional Limitations- ADL's Stands 5' before back hurts. Needs UE support to go up/down curb due to sense of instability. Functional Limitations- Mobility/Gait Walks 2 laps around the neighborhood (1 mile) with cane slowly with tolerable pain. Personal Factors Other Personal Factors That May Effect Lives alone. Drives self. Therapy/Recovery PT-OP-C Subjective Start: 04/19/24 19:12 Freq: Status: Active Protocol: Document 05/31/24 13:00 SP (Rec: 05/31/24 13:52 SP [id number]) OP-PT Subjective Patient Comments Patient Comments Pt reports posture getting better standing at wall. Back feeling looser with exercises, very compliant with HEP. Wanting to get better on stairs, not feeling confident avoid them but family has stairs needs to manage. PT-OP-D Balance Start: 04/19/24 19:12 Freq: Status: Active Protocol: Document 05/13/24 14:38 SP (Rec: 05/13/24 16:02 SP [id number]) Underwood Balance Assessment Total Score Underwood Impairment Rating 20 to 39% Impaired (Score 34- 44) Tinetti Balance Assessment Scoring and Interpretation Interpretation of Scores Low risk for falls (>24) Tinetti Impairment Rating from Composite 1 to <20% Impaired (Score 23- Score 27) PT-OP-G Mobility & Gait Start: 04/19/24 19:12 Freq: Status: Active Protocol: Document 04/25/24 11:39 LRN (Rec: 04/25/24 12:53 LRN [id number]) OP Gait Assessment Gait Gait Assistance Required: Independent Distance (Feet) 60 Able to Maintain Weight Bearing Status Yes During Gait Assistive Devices Assistive Device Straight Cane Gait Deviations General Gait Pattern Decreased Stride Length,Flexed Trunk Factors Limiting Gait Function Factors Limiting Gait Function Decreased Strength,Pain,Poor Balance Stair Climbing Evaluation Comments Stair Climbing Comments Pt reporting able to go up/ down curb with SPC independently but feels unstable in her balance. PT-OP-H Neuro Start: 04/19/24 19:12 Freq: Status: Active Protocol: Document 04/25/24 11:39 LRN (Rec: 04/25/24 12:53 LRN [id number]) Sensation Evaluation Gross Sensation Gross Sensation WNL PT-OP-J Posture/Palpation/Skin Start: 04/19/24 19:12 Freq: Status: Active Protocol: Document 04/25/24 11:39 LRN (Rec: 04/25/24 12:53 LRN [id number]) Posture Evaluation Position Standing Head/C-Spine Posture Forward Head T-Spine Posture Flattened Shoulder Posture (L) Elevated Scapula Posture (L) Elevated Pelvis Posture (L) Iliac Crest Superior,(L) PSIS Posterior Weight Distribution Weight Shifted Right Hip Posture (L) Flexed,(R) Flexed Knee Posture (L) Genu Valgus,(L) Excess Flexion Comments Posture Comments L breast high, Trunk a little R SB, flexed at hips 22 deg's , L knee flexed 10 deg's. Palpation Assessment Location L/S Palpation Location L L/S paraspinals, QL, Gluteals Palpation Findings Soft Tissue Tightness,Muscle Guarding Palpation Details Tenderness at L PSIS. T/S Palpation Location Paraspinals Palpation Findings Soft Tissue Tightness,Muscle Guarding,Tenderness Palpation Details R side muscle guarding. Intrascapular ms pain. PT-OP-K Range of Motion Start: 04/19/24 19:12 Freq: Status: Active Protocol: Document 05/03/24 10:06 AB (Rec: 05/03/24 12:50 AB [id number]) Ankle and Foot Goniometric Range of Motion Ankle and Foot PROM right Ankle/Foot ROM WFL Yes Testing Position Standing Comments DF with knee flexed left knee 7 cm from wall with great toe to wall prior to heel off floor AROM right Ankle/Foot ROM WFL No Testing Position Supine Comments AROM DF with knee ext lacking 8 deg from neutral PROM left Ankle/Foot ROM WFL No Testing Position Standing Comments DF with knee flexed left knee 8.5 cm from wall with great toe to wall prior to heel off floor AROM left Ankle/Foot ROM WFL No Testing Position Supine Comments AROM DF with knee ext lacking 12 deg from neutral PT-OP-M Strength Start: 04/19/24 19:12 Freq: Status: Active Protocol: Document 04/29/24 09:09 LRN (Rec: 04/29/24 09:52 LRN [id number]) Ankle/Foot Strength Ankle and Foot Manual Muscle Testing Right Dorsiflexion (L4) 3+ Fair+ Plantarflexion (S1) 5 Normal Inversion 3+ Fair+ Eversion (S1) 4 Good Comments DF ROM is to neutral. Supination is 3+/5 Pronation is 4/5 Left Dorsiflexion (L4) 3+ Fair+ Plantarflexion (S1) 5 Normal Inversion 3+ Fair+ Eversion (S1) 4+ Good+ Comments DF ROM is to neutral. Supination is 3+/5 Pronation is 4+/5 PT-OP-Q Treatments Start: 04/19/24 19:12 Freq: Status: Active Protocol: Document 05/31/24 13:00 SP (Rec: 05/31/24 13:52 SP [id number]) Therapeutic Exercises Sitting Exercises Sit<>stand Sitting Exercise Name Hip AB w/transfer & Use of arms for support. Side bilateral Resistance L1 TB at thighs (challenging, best no band cued knees apart AROM asc/desc) Equipment Used mesh chair no UE Reps/Minutes X10 Comments cued to push out on knees against band w/transfer Standing Exercises heel raises Standing Exercise Name added to HEP Side bilateral Equipment Used PRN counter Reps/Minutes 10 reps Comments improve height with reps DF back to wall Standing Exercise Name added to HEP /c HO Side bilateral Equipment Used back on wal Reps/Minutes 10 Comments better effort step ups Standing Exercise Name fwd & lateral- added to HEP /c HO Side bilateral Equipment Used 4 step, contact rail PRN Reps/Minutes 10 reps lead each LE Comments cued TKE and full upright glut drive into standing, improved posture & stab Gait Training Gait Activity Stairs Description receiprocal stepping Device Used B HR Level of Assistance S Distance/Duration 4 steps x3 laps Treatment Focus perform for LE strengthening, increase confidence Comments noted decreased DF during R> LLE foot advancement more than descending steps. Needs BUE support for stability and confidence. Neuro Re-Education Treatment Balance Activities Ceci Details add next tx. SLS Details trialed in PT Comments RLE 1-2 sec LLE 2-3 sec Contact rail for recovery midline bal vs put opp foot down. PT-OP-T Assessment and Plan Start: 04/19/24 19:12 Freq: Status: Active Protocol: Document 05/31/24 13:00 SP (Rec: 05/31/24 13:52 SP [id number]) Physical Therapy Assessment Goals Four Impairment Decreased endurance & exer tolerance (gait 1 mile), PLOF- 2 miles w/cane Short Term Goal (STG) Improve ankle strength to decrease ankle pain with walking. 05/13/25: added DF /c EV TB #2 teal, LAQ TB #2. 05/31/24: added standing heel raises, DF raises, step ups fwd/bwd/lateral STG Duration 06/24/24 progressing 05/31/24 Half-Way Goal (LTG) Improve LE endurance with pt able to walk with cane for 4 laps around the neighborhood ( ~2 miles) with pain rated no more than 4/10. (Prior level of function: Able to walk 1 mile with back pain rated 3-4/ 10). LTG Duration 07/22/24 Three Impairment Decreased LE strength/balance with pt feeling insecure with stair abulation Short Term Goal (STG) Improve SLS and ankle strength with pt able to amb up/down 4 steps with rail w/o fear of falling. 05/13/24: SLS 1-2 sec Radha; TInetti 25/ Low fall risk 1- 20% impaired, UNDERWOOD 42/56 20-39 % impaired 05/31/24 SLS 1-2 sec RLE, 2-3 sec LLE. Pt able to ascend/ descend receiprocal stepping on stairs BUE on HR support but thinks family only has 1 HR. Noted R>L decreased DF activation, improves with reps and after standing HEP. STG Duration 06/24/24 slow progression SLS 05/31/24 Half-Way Goal (LTG) Improve function per LEFS ( initial eval score 24 = 60-79% impaired, score 17-31) with pt able to ambulate up/down 4- 5 stairs & a curb with SPC with confidence. LTG Duration 07/22/24 Two Impairment Pain UB (4/10) & LB (3-4/10) Short Term Goal (STG) Pt will be able to demonstrate proper body mechanics for ADLs (lifting, reaching, carrying objects with one hand ). 05/18/24: Progression: started ed/instruction postural alignment seated use pillows, standing on/off wall improved carryover and intiated seated and log roll technique for back health/spinal support. STG Duration 05/20/24 Progression 05/18/24 Furniture Shampooer Goal (LTG) Reduce standing hip flexion to be no greater than 5 deg's with pt able to static standing for 15-20' before needing to move (ex-in gracery line). 04/3024: progression 1 improved knee/hip/postural alignment noted end tx today, has been working on wall posture. Measure if needed next tx. LTG Duration 07/22/24 progression: 05/18/24 One Impairment Lacks appropriate self care HEP Short Term Goal (STG) Pt will be educated and demonstrate knowledge of proper sitting/standing posture. 05/13/24: progressing awareness posture standing with posture HEP and during calf stretch in doorway. 05/18/24: progression: instruction seated use pillows in recliner for improved posture (not sacral sitting), verbalized and use pillows in PT today. 05/24/24: Pt educated in proper posture with wall standing awareness training. STG Duration 05/20/24 progression 05/24/24 Furniture Shampooer Goal (LTG) Pt will be independent in an effective self care HEP for core & ankle strengthening and mobility ex's, and general LE ex's. 04/29/24 HEP: Active Ankle IV/EV/DF/PF, and sit<>stand ex 's. 05/13/24: edited ankle strengthening to resisted DF / c EV TB #2 at forefoot holds for foot clearnace gait. 05/18/24: added open book and serratus press use can for scapular and thoracic mobility pnfree. 05/24/24: HO issued for Bed mobility with writting I/S for sit<>stand with breath & Kegel. 05/31/24: added heel raises, DF raises, step up fwd/bwd/ lateral for ankle and hip strengthening and balance progression for confidence stair mgt. DC TB ankle ex. LTG Duration 07/22/24 progressed 05/31/24 Assessment Summary Assessment Pt improved posture with static activities HR and step ups, progressed ankle exercises in standing for support increased confidence stair mgt. Still challenge maintaining upright posture during mobility and SLS. Physical Therapy Plan Frequency and Duration Frequency of Treatment 2x/Week Duration of treatment (weeks) 12 Plan of Care Start Date 04/25/24 Plan of Care End Date 07/22/24 Therapeutic Interventions Therapeutic Interventions Balance Training,Gait Training ,Home Exercise Program,Manual Therapy,Neuromuscular Re- education,Self-Care/Home Management,Soft Tissue Mobilization,Therapeutic Activities,Therapeutic Exercises Modalities Cold Pack/Ice Massage,Electric Stimulation,Hot Packs Next Visit Focus/Plan Next Note Type Progress Note Next Visit Plan (precaution R TKA). Next: LEFS LTG Goal #3, PT recheck ankle AROM, then review added standing ankle and hip strengthening HEP. POC: Add T/S mobilty strengthening (thread needle<> open book on counter? ). Thoracic/Lumbar back pain rehab: gait/standing mechanics, add mobility ex's of anterior hips and abdomen, strengthening of back/gluteals . Progressing to Ankle rehab ( radha) and DC shoulder rehab at pt request. Ankle Rehab: Assess ankle ROM , stairs, TUG, Gait speed/gait training. POC: Therapeutic Ex ( strengthening/ROM), Therapeutic Activity (transfer training), Gait & Balance training, Manual therapy (STM/ JMT), Pt Education (HEP, Edema and pain mgmt), modalities for pain.
--- NOTE | 2024-06-07 18:56 | PT.OTN ---
Current Diagnoses Other chronic pain (06/07/24) Pain in right shoulder (06/07/24) Pain in left shoulder (06/07/24) Pain in right ankle and joints of right foot (06/07/24) Pain in left ankle and joints of left foot (06/07/24) Pain in thoracic spine (06/07/24) Physical Therapy Treatment Note PT-OP-A Visit Information Start: 04/19/24 19:12 Freq: Status: Active Protocol: Document 06/07/24 13:54 LRN (Rec: 06/07/24 14:37 LRN [id number]) Out-Patient Physical Therapy Visit Information Visit Information Visit Type Progress Note Visit Start Time 13:54 Visit Stop Time 13:36 Visit Number 10 (04/28 with PN) Number of MANAGER OF TRAINING Visits 0 Evaluation Information Evaluation Date 04/25/24 Precautions Precautions Arthritis, bulging discs, 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 R TKA, UPPER [place] w/ hearing aides. PT-OP-B Current Condition Start: 04/19/24 19:12 Freq: Status: Active Protocol: Document 04/25/24 11:39 LRN (Rec: 04/25/24 12:53 LRN [id number]) Current Condition History of Current Condition Onset Date 3-4 months ago Current Complaints LBP>UBP, f/b ankles, f/b shoulders the least hindering. History of Current Condition Insidious onset of full body pain with worsening of symptoms 3-4 months ago and pains continuing to worsen; now needing help to manage the pain. LBP is constant, UBP hurts with standing in one place or sitting in uncomfortable chair , frequent pain in ankles, sometimes shoulders. Most difficult with ascending/ descending stairs. R ankles (TKA side) is worse than L ankles. States loss of capabilities she would like to get back (see Goals). Lives alone in [place]. Drives. Uses cane walking outside and to go up/down her one step (3- 4 step). States she has a high pain tolerance. Prior Treatments and Tests PT for back, Deanna Ellington, PT - 1 yr ago. Pt for R TKA, Homa Recinos, PT - 2020. Knee is okay. Treatment Goals Patient/Caregiver Goals Pt goals: - 4-5 Stairs is a barrier. Needs UE support to go up/down curb. - Walk w/o cane for 4 laps around neighborhood (2 miles) with cane. 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 Prior Functional Status Baseline Function- Gait Walking around neighborhood 4 laps (2 miles) with cane w/ tolerable pain. Baseline Function- Other Stand 15-20' before needing to move. Curb ascend/descend with cane, with moderate instability. Current Functional Impairments (Reported) Functional Limitations- ADL's Stands 5' before back hurts. Needs UE support to go up/down curb due to sense of instability. Functional Limitations- Mobility/Gait Walks 2 laps around the neighborhood (1 mile) with cane slowly with tolerable pain. Personal Factors Other Personal Factors That May Effect Lives alone. Drives self. Therapy/Recovery PT-OP-C Subjective Start: 04/19/24 19:12 Freq: Status: Active Protocol: Document 06/07/24 13:54 LRN (Rec: 06/07/24 14:37 LRN [id number]) OP-PT Subjective Patient Comments Patient Comments Back is bothering her. Needing the ankle ex's because they make her feel better with walking. States she can stand 6-7', and with cane can stand 10'. Pain rated: UBP ( intermittent) 2-6/10, LBP 2-3/ 10 (consistent). Patient Questionnaires Lower Extremity Functional Scale LEFS Score 23 LEFS Impairment 60 to 79% Impaired (Score 17- 31) Oswestry Low Back Index Oswestry Score 38 Oswestry Impairment 20 to 39% Impaired (Score 20- 39) Quick Dash- Upper Extremity Quick Dash UE Score 50 Quick Dash UE Impairment 40 to 59% Impaired (Score 40- 59) PT-OP-D Balance Start: 04/19/24 19:12 Freq: Status: Active Protocol: Document 05/13/24 14:38 SP (Rec: 05/13/24 16:02 SP [id number]) Underwood Balance Assessment Total Score Underwood Impairment Rating 20 to 39% Impaired (Score 34- 44) Tinetti Balance Assessment Scoring and Interpretation Interpretation of Scores Low risk for falls (>24) Tinetti Impairment Rating from Composite 1 to <20% Impaired (Score 23- Score 27) PT-OP-G Mobility & Gait Start: 04/19/24 19:12 Freq: Status: Active Protocol: Document 04/25/24 11:39 LRN (Rec: 04/25/24 12:53 LRN [id number]) OP Gait Assessment Gait Gait Assistance Required: Independent Distance (Feet) 60 Able to Maintain Weight Bearing Status Yes During Gait Assistive Devices Assistive Device Straight Cane Gait Deviations General Gait Pattern Decreased Stride Length,Flexed Trunk Factors Limiting Gait Function Factors Limiting Gait Function Decreased Strength,Pain,Poor Balance Stair Climbing Evaluation Comments Stair Climbing Comments Pt reporting able to go up/ down curb with SPC independently but feels unstable in her balance. PT-OP-H Neuro Start: 04/19/24 19:12 Freq: Status: Active Protocol: Document 04/25/24 11:39 LRN (Rec: 04/25/24 12:53 LRN [id number]) Sensation Evaluation Gross Sensation Gross Sensation WNL PT-OP-J Posture/Palpation/Skin Start: 04/19/24 19:12 Freq: Status: Active Protocol: Document 04/25/24 11:39 LRN (Rec: 04/25/24 12:53 LRN [id number]) Posture Evaluation Position Standing Head/C-Spine Posture Forward Head T-Spine Posture Flattened Shoulder Posture (L) Elevated Scapula Posture (L) Elevated Pelvis Posture (L) Iliac Crest Superior,(L) PSIS Posterior Weight Distribution Weight Shifted Right Hip Posture (L) Flexed,(R) Flexed Knee Posture (L) Genu Valgus,(L) Excess Flexion Comments Posture Comments L breast high, Trunk a little R SB, flexed at hips 22 deg's , L knee flexed 10 deg's. Palpation Assessment Location L/S Palpation Location L L/S paraspinals, QL, Gluteals Palpation Findings Soft Tissue Tightness,Muscle Guarding Palpation Details Tenderness at L PSIS. T/S Palpation Location Paraspinals Palpation Findings Soft Tissue Tightness,Muscle Guarding,Tenderness Palpation Details R side muscle guarding. Intrascapular ms pain. PT-OP-K Range of Motion Start: 04/19/24 19:12 Freq: Status: Active Protocol: Document 05/03/24 10:06 AB (Rec: 05/03/24 12:50 AB [id number]) Ankle and Foot Goniometric Range of Motion Ankle and Foot PROM right Ankle/Foot ROM WFL Yes Testing Position Standing Comments DF with knee flexed left knee 7 cm from wall with great toe to wall prior to heel off floor AROM right Ankle/Foot ROM WFL No Testing Position Supine Comments AROM DF with knee ext lacking 8 deg from neutral PROM left Ankle/Foot ROM WFL No Testing Position Standing Comments DF with knee flexed left knee 8.5 cm from wall with great toe to wall prior to heel off floor AROM left Ankle/Foot ROM WFL No Testing Position Supine Comments AROM DF with knee ext lacking 12 deg from neutral PT-OP-M Strength Start: 04/19/24 19:12 Freq: Status: Active Protocol: Document 04/29/24 09:09 LRN (Rec: 04/29/24 09:52 LRN [id number]) Ankle/Foot Strength Ankle and Foot Manual Muscle Testing Right Dorsiflexion (L4) 3+ Fair+ Plantarflexion (S1) 5 Normal Inversion 3+ Fair+ Eversion (S1) 4 Good Comments DF ROM is to neutral. Supination is 3+/5 Pronation is 4/5 Left Dorsiflexion (L4) 3+ Fair+ Plantarflexion (S1) 5 Normal Inversion 3+ Fair+ Eversion (S1) 4+ Good+ Comments DF ROM is to neutral. Supination is 3+/5 Pronation is 4+/5 PT-OP-Q Treatments Start: 04/19/24 19:12 Freq: Status: Active Protocol: Document 06/07/24 13:54 LRN (Rec: 06/07/24 14:37 LRN [id number]) Therapeutic Exercises Sitting Exercises Sit<>stand Sitting Exercise Name Hip AB w/transfer & Use of arms for support. Side bilateral Resistance L1 TB at thighs (challenging, best no band cued knees apart AROM asc/desc) Equipment Used mesh chair no UE Reps/Minutes X10 Comments cued to push out on knees against band w/transfer 4 way ankle ex Sitting Exercise Name DF c EV, and EV Side bilateral Equipment Used L2 TB Reps/Minutes 1 SH, 10x 2 Comments cued for upright posture, for ankle lift DF & EV hold Standing Exercises Ankle DF Standing Exercise Name At stair railing, ankle DF on fariba with elevated end at heel . Side bilateral Reps/Minutes 10x 2 each Comments Phys cuing to keep back straight. DF back to wall Standing Exercise Name attempted Side bilateral Equipment Used back on wal Reps/Minutes 10 Comments better effort step ups Standing Exercise Name Partial step up laterally 6 raise, full step ups 4 step Side bilateral Equipment Used Railing for balance on opp side of leg lifting up Reps/Minutes 10x each side and each ex Comments Fwd and lateral step ups Wall standing Standing Exercise Name Posture correction with wall & w/o wall standing Resistance L lateral SB midline/level shld Equipment Used Cued pt for TA tightening to decr possible L/S radiculopathy into lwr legs Reps/Minutes 1 min x2 reps Comments B heels touching wall /c improved TKE /c knees parallel : on&off wall Therapeutic Activity Therapeutic Activity Lifting, carrying, reaching overhead Name Verbal Body mechanics training Reps/Minutes 8' Comments Pt needed cuing to usee legs for lifting, getting close to objects reaching overhead and for carrying objects close to body at COG. PT-OP-T Assessment and Plan Start: 04/19/24 19:12 Freq: Status: Active Protocol: Document 06/07/24 13:54 LRN (Rec: 06/07/24 14:37 LRN [id number]) Physical Therapy Assessment Rehab Potential Rehabilitation Potential Good Evaluation Complexity Number of Personal Factors/Comorbidities 1-2 Number of Body Systems Impaired 4 or More Clinical Presentation at Evaluation Evolving Impairments Impairments Activity Tolerance,Balance, Functional Activities,Gait, Pain,Posture,ROM,Soft Tissue Mobility,Strength,Transfers Goals Four Impairment Decreased endurance & exer tolerance (gait 1 mile), PLOF- 2 miles w/cane Short Term Goal (STG) Improve ankle strength to decrease ankle pain with walking. 05/13/25: added DF /c EV TB #2 teal, LAQ TB #2. 05/31/24: added standing heel raises, DF raises, step ups fwd/bwd/lateral STG Duration 06/24/24 progressing 05/31/24 [facility] Goal (LTG) Improve LE endurance with pt able to walk with cane for 4 laps around the neighborhood ( ~2 miles) with pain rated no more than 4/10. (Prior level of function: Able to walk 1 mile with back pain rated 3-4/ 10). LTG Duration 07/22/24 Three Impairment Decreased LE strength/balance with pt feeling insecure with stair abulation Short Term Goal (STG) Improve SLS and ankle strength with pt able to amb up/down 4 steps with rail w/o fear of falling. 05/13/24: SLS 1-2 sec Radha; TInetti 25/ Low fall risk 1- 20% impaired, UNDERWOOD 42/56 20-39 % impaired 05/31/24 SLS 1-2 sec RLE, 2-3 sec LLE. Pt able to ascend/ descend receiprocal stepping on stairs BUE on HR support but thinks family only has 1 HR. Noted R>L decreased DF activation, improves with reps and after standing HEP. STG Duration 06/24/24 slow progression SLS 05/31/24 [facility] Goal (LTG) Improve function per LEFS ( initial eval score 24 = 60-79% impaired, score 17-31) with pt able to ambulate up/down 4- 5 stairs & a curb with SPC with confidence. 06/07/24: LEFS score 23 (60- 79% impaired, score 17-31). LTG Duration 07/22/24 (06/07/24: no significant change in LEFS score) Two Impairment Pain UB (4/10) & LB (3-4/10) Short Term Goal (STG) Pt will be able to demonstrate proper body mechanics for ADLs (lifting, reaching, carrying objects with one hand ). 05/18/24: Progression: started ed/instruction postural alignment seated use pillows, standing on/off wall improved carryover and intiated seated and log roll technique for back health/spinal support. 06/07/24: Reviewed mechanics for lifting, carrying objects, and reaching). STG Duration 05/20/24 Progression Pit Inspector Goal (LTG) Reduce standing hip flexion to be no greater than 5 deg's with pt able to static standing for 15-20' before needing to move (ex-in gracery line). 04/3024: progression 1 improved knee/hip/postural alignment noted end tx today, has been working on wall posture. Measure if needed next tx. 06/07/24: Pt has 4 deg's hip flexion in independent standing, 0 deg's against wall . Pt notes able to stand 6-7 min and with cane 10 min. LTG Duration 07/22/24 (06/07/24: Met goal for standing posture) One Impairment Lacks appropriate self care HEP Short Term Goal (STG) Pt will be educated and demonstrate knowledge of proper sitting/standing posture. 05/13/24: progressing awareness posture standing with posture HEP and during calf stretch in doorway. 05/18/24: progression: instruction seated use pillows in recliner for improved posture (not sacral sitting), verbalized and use pillows in PT today. 05/24/24: Pt educated in proper posture with wall standing awareness training. 06/07/24: Pt able to sit with good posture and is aware of good standing posture. STG Duration 05/20/24 progressing : good posture in sitting [facility] Goal (LTG) Pt will be independent in an effective self care HEP for core & ankle strengthening and mobility ex's, and general LE ex's. 04/29/24 HEP: Active Ankle IV/EV/DF/PF, and sit<>stand ex 's. 05/13/24: edited ankle strengthening to resisted DF / c EV TB #2 at forefoot holds for foot clearnace gait. 05/18/24: added open book and serratus press use can for scapular and thoracic mobility pnfree. 05/24/24: HO issued for Bed mobility with writting I/S for sit<>stand with breath & Kegel. 05/31/24: added heel raises, DF raises, step up fwd/bwd/ lateral for ankle and hip strengthening and balance progression for confidence stair mgt. DC TB ankle ex. LTG Duration 07/22/24 progressed 05/31/24 Assessment Summary Assessment Pt is an 84 yo female, initially seen with pain in multiple areas of her body, w/ rehab focused on reducing upper & lower back pain and R> L ankle pain to improve function. The pt is feeling more secure with walking with her cane as she her ankles become stronger. She does not feel safe doing the wall standing ankle strengthening ex last issued. Her low back pain is hindering her functionally and she has had no significant improvement in lower extemity function as strengthening has been slow to progress. The pt's posture has improved with hip flexion in standing is 4 deg's ( initially 22 deg's, and L knee flexed 10 deg's). As expected, due to the multiple areas of concern the pt's rehabilitation is slow to progress, requiring extension of her rehabilitation time and program. The pt will benefit from skilled physical therapy to work towards further achieving the above stated goals. Physical Therapy Plan Frequency and Duration Frequency of Treatment 2x/Week Duration of treatment (weeks) 12 Plan of Care Start Date 04/25/24 Plan of Care End Date 07/22/24 Therapeutic Interventions Therapeutic Interventions Balance Training,Gait Training ,Home Exercise Program,Manual Therapy,Neuromuscular Re- education,Self-Care/Home Management,Soft Tissue Mobilization,Therapeutic Activities,Therapeutic Exercises Modalities Cold Pack/Ice Massage,Electric Stimulation,Hot Packs Next Visit Focus/Plan Next Note Type Treatment Note Next Visit Plan (precaution R TKA, DC shoulder rehab at pt request). Next: PT recheck ankle AROM, then review added hip strengthening HEP, body mechanics training review for LB protection, and add walking for distance/time (walking around clinic). Progress ankle/LE strengthening to improve stair ambulation safety and tolerance. Reduce LBP and improve standing posture. Thoracic/Lumbar back pain rehab: gait/standing mechanics, add mobility ex's of anterior hips and abdomen, strengthening of back/gluteals . Progressing to Ankle rehab ( radha). Ankle Rehab: Assess ankle ROM , stairs, TUG, Gait speed/gait training. POC: Therapeutic Ex ( strengthening/ROM), Therapeutic Activity (transfer training), Gait & Balance training, Manual therapy (STM/ JMT), Pt Education (HEP, Edema and pain mgmt), modalities for pain.
--- NOTE | 2024-06-20 15:14 | PT.OTN ---
Current Diagnoses Other chronic pain (06/20/24) Pain in right shoulder (06/20/24) Pain in left shoulder (06/20/24) Pain in right ankle and joints of right foot (06/20/24) Pain in left ankle and joints of left foot (06/20/24) Pain in thoracic spine (06/20/24) Physical Therapy Treatment Note PT-OP-A Visit Information Start: 04/19/24 19:12 Freq: Status: Active Protocol: Document 06/20/24 14:34 SP (Rec: 06/20/24 15:36 SP [id number]) Out-Patient Physical Therapy Visit Information Visit Information Visit Type Progress Note Visit Start Time 14:34 Visit Stop Time 15:14 Visit Number 11 (08/29 with PN) Number of GRADUATE RECRUITER Visits 1 Evaluation Information Evaluation Date 04/25/24 Precautions Precautions Arthritis, bulging discs, 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 R TKA, CACHIL DEHE w/ hearing aides. PT-OP-B Current Condition Start: 04/19/24 19:12 Freq: Status: Active Protocol: Document 04/25/24 11:39 LRN (Rec: 04/25/24 12:53 LRN [id number]) Current Condition History of Current Condition Onset Date 3-4 months ago Current Complaints LBP>UBP, f/b ankles, f/b shoulders the least hindering. History of Current Condition Insidious onset of full body pain with worsening of symptoms 3-4 months ago and pains continuing to worsen; now needing help to manage the pain. LBP is constant, UBP hurts with standing in one place or sitting in uncomfortable chair , frequent pain in ankles, sometimes shoulders. Most difficult with ascending/ descending stairs. R ankles (TKA side) is worse than L ankles. States loss of capabilities she would like to get back (see Goals). Lives alone in [place]. Drives. Uses cane walking outside and to go up/down her one step (3- 4 step). States she has a high pain tolerance. Prior Treatments and Tests PT for back, Deanna Ellington, PT - 1 yr ago. Pt for R TKA, Homa Recinos, PT - 2020. Knee is okay. Treatment Goals Patient/Caregiver Goals Pt goals: - 4-5 Stairs is a barrier. Needs UE support to go up/down curb. - Walk w/o cane for 4 laps around neighborhood (2 miles) with cane. 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 Prior Functional Status Baseline Function- Gait Walking around neighborhood 4 laps (2 miles) with cane w/ tolerable pain. Baseline Function- Other Stand 15-20' before needing to move. Curb ascend/descend with cane, with moderate instability. Current Functional Impairments (Reported) Functional Limitations- ADL's Stands 5' before back hurts. Needs UE support to go up/down curb due to sense of instability. Functional Limitations- Mobility/Gait Walks 2 laps around the neighborhood (1 mile) with cane slowly with tolerable pain. Personal Factors Other Personal Factors That May Effect Lives alone. Drives self. Therapy/Recovery PT-OP-C Subjective Start: 04/19/24 19:12 Freq: Status: Active Protocol: Document 06/20/24 14:34 SP (Rec: 06/20/24 15:36 SP [id number]) OP-PT Subjective Patient Comments Patient Comments Pt reports really stiff today. Was at friend's house and didn't find a comfortable chair sit on. PT-OP-D Balance Start: 04/19/24 19:12 Freq: Status: Active Protocol: Document 05/13/24 14:38 SP (Rec: 05/13/24 16:02 SP [id number]) Underwood Balance Assessment Total Score Underwood Impairment Rating 20 to 39% Impaired (Score 34- 44) Tinetti Balance Assessment Scoring and Interpretation Interpretation of Scores Low risk for falls (>24) Tinetti Impairment Rating from Composite 1 to <20% Impaired (Score 23- Score 27) PT-OP-G Mobility & Gait Start: 04/19/24 19:12 Freq: Status: Active Protocol: Document 04/25/24 11:39 LRN (Rec: 04/25/24 12:53 LRN [id number]) OP Gait Assessment Gait Gait Assistance Required: Independent Distance (Feet) 60 Able to Maintain Weight Bearing Status Yes During Gait Assistive Devices Assistive Device Straight Cane Gait Deviations General Gait Pattern Decreased Stride Length,Flexed Trunk Factors Limiting Gait Function Factors Limiting Gait Function Decreased Strength,Pain,Poor Balance Stair Climbing Evaluation Comments Stair Climbing Comments Pt reporting able to go up/ down curb with SPC independently but feels unstable in her balance. PT-OP-H Neuro Start: 04/19/24 19:12 Freq: Status: Active Protocol: Document 04/25/24 11:39 LRN (Rec: 04/25/24 12:53 LRN [id number]) Sensation Evaluation Gross Sensation Gross Sensation WNL PT-OP-J Posture/Palpation/Skin Start: 04/19/24 19:12 Freq: Status: Active Protocol: Document 04/25/24 11:39 LRN (Rec: 04/25/24 12:53 LRN [id number]) Posture Evaluation Position Standing Head/C-Spine Posture Forward Head T-Spine Posture Flattened Shoulder Posture (L) Elevated Scapula Posture (L) Elevated Pelvis Posture (L) Iliac Crest Superior,(L) PSIS Posterior Weight Distribution Weight Shifted Right Hip Posture (L) Flexed,(R) Flexed Knee Posture (L) Genu Valgus,(L) Excess Flexion Comments Posture Comments L breast high, Trunk a little R SB, flexed at hips 22 deg's , L knee flexed 10 deg's. Palpation Assessment Location L/S Palpation Location L L/S paraspinals, QL, Gluteals Palpation Findings Soft Tissue Tightness,Muscle Guarding Palpation Details Tenderness at L PSIS. T/S Palpation Location Paraspinals Palpation Findings Soft Tissue Tightness,Muscle Guarding,Tenderness Palpation Details R side muscle guarding. Intrascapular ms pain. PT-OP-K Range of Motion Start: 04/19/24 19:12 Freq: Status: Active Protocol: Document 05/03/24 10:06 AB (Rec: 05/03/24 12:50 AB [id number]) Ankle and Foot Goniometric Range of Motion Ankle and Foot PROM right Ankle/Foot ROM WFL Yes Testing Position Standing Comments DF with knee flexed left knee 7 cm from wall with great toe to wall prior to heel off floor AROM right Ankle/Foot ROM WFL No Testing Position Supine Comments AROM DF with knee ext lacking 8 deg from neutral PROM left Ankle/Foot ROM WFL No Testing Position Standing Comments DF with knee flexed left knee 8.5 cm from wall with great toe to wall prior to heel off floor AROM left Ankle/Foot ROM WFL No Testing Position Supine Comments AROM DF with knee ext lacking 12 deg from neutral PT-OP-M Strength Start: 04/19/24 19:12 Freq: Status: Active Protocol: Document 04/29/24 09:09 LRN (Rec: 04/29/24 09:52 LRN [id number]) Ankle/Foot Strength Ankle and Foot Manual Muscle Testing Right Dorsiflexion (L4) 3+ Fair+ Plantarflexion (S1) 5 Normal Inversion 3+ Fair+ Eversion (S1) 4 Good Comments DF ROM is to neutral. Supination is 3+/5 Pronation is 4/5 Left Dorsiflexion (L4) 3+ Fair+ Plantarflexion (S1) 5 Normal Inversion 3+ Fair+ Eversion (S1) 4+ Good+ Comments DF ROM is to neutral. Supination is 3+/5 Pronation is 4+/5 PT-OP-Q Treatments Start: 04/19/24 19:12 Freq: Status: Active Protocol: Document 06/20/24 14:34 SP (Rec: 06/20/24 15:36 SP [id number]) Cardio Equipment Recumbent Elliptical ([employer]Log[employer]) Duration (Minutes) 6 Resistance 3 Seat Position in 10 Other BLEs only 40 RPMs Therapeutic Exercises Standing Exercises resisted side stepping Standing Exercise Name trialed in PT Side bilateral Resistance Tb #1 loop at shins Equipment Used inside //bars, hands hover rail Reps/Minutes 10 ft x2 laps Comments cued posture over L hip abd during R side stepping, L weaker than R Ankle DF Standing Exercise Name PF eccentric DF on fariba with elevated end at heel. Side bilateral Equipment Used rail support Reps/Minutes 10x 2 each Comments With cuing improved back straight. DF back to wall Side bilateral Equipment Used back/shld/head on wall, heels approx 4 from wall Reps/Minutes 10 Comments better effort step ups Standing Exercise Name full step ups fwd & lateral 6 step Side bilateral Equipment Used very light contact rail vs therapist hand support Reps/Minutes 10x each side and each ex Comments occ cues for elongated posture Gait Training Gait Activity 6MWT Device Used [facility] in RUE Level of Assistance Mod I Distance/Duration 974 ft Treatment Focus posturing during gait, foot clearance Comments cues for elevated posture and heel toe improved heel clearance, has audible light scuffing last 2 min, makes corrections post cues. PT-OP-T Assessment and Plan Start: 04/19/24 19:12 Freq: Status: Active Protocol: Document 06/20/24 14:34 SP (Rec: 06/20/24 15:36 SP [id number]) Physical Therapy Assessment Goals Four Impairment Decreased endurance & exer tolerance (gait 1 mile), PLOF- 2 miles w/cane Short Term Goal (STG) Improve ankle strength to decrease ankle pain with walking. 05/13/25: added DF /c EV TB #2 teal, LAQ TB #2. 05/31/24: added standing heel raises, DF raises, step ups fwd/bwd/lateral 06/20/24: R ankle pain can be 3 -4/10 toward end of her walks at 1 mile (walking quicker pacing with younger friend) but other times not at all when by herself and end tx light 1/10 R ankle. STG Duration 06/24/24 progressing 06/20/24 Retirement Goal (LTG) Improve LE endurance with pt able to walk with cane for 4 laps around the neighborhood ( ~2 miles) with pain rated no more than 4/10. (Prior level of function: Able to walk 1 mile with back pain rated 3-4/ 10). 06/20/24: walking about 1 miles (2 laps around neighborhood) primarily due to tiring trying keep up pacing with young friend and not built endurance, 1-3/10 R ankle. LTG Duration 07/22/24 progressing 06/20/24 Three Impairment Decreased LE strength/balance with pt feeling insecure with stair abulation Short Term Goal (STG) Improve SLS and ankle strength with pt able to amb up/down 4 steps with rail w/o fear of falling. 05/13/24: SLS 1-2 sec Radha; TInetti Low fall risk 1- 20% impaired, UNDERWOOD 42/56 20-39 % impaired 05/31/24 SLS 1-2 sec RLE, 2-3 sec LLE. Pt able to ascend/ descend receiprocal stepping on stairs BUE on HR support but thinks family only has 1 HR. Noted R>L decreased DF activation, improves with reps and after standing HEP. 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 06/07/24: LEFS score 23 (60- 79% impaired, score 17-31). LTG Duration 07/22/24 (06/07/24: no significant change in LEFS score) Two Impairment Pain UB (4/10) & LB (3-4/10) Short Term Goal (STG) Pt will be able to demonstrate proper body mechanics for ADLs (lifting, reaching, carrying objects with one hand ). 05/18/24: Progression: started ed/instruction postural alignment seated use pillows, standing on/off wall improved carryover and intiated seated and log roll technique for back health/spinal support. 06/07/24: Reviewed mechanics for lifting, carrying objects, and reaching). STG Duration 05/20/24 Progression Retirement Goal (LTG) Reduce standing hip flexion to be no greater than 5 deg's with pt able to static standing for 15-20' before needing to move (ex-in gracery line). 04/3024: progression 1 improved knee/hip/postural alignment noted end tx today, has been working on wall posture. Measure if needed next tx. 06/07/24: Pt has 4 deg's hip flexion in independent standing, 0 deg's against wall . Pt notes able to stand 6-7 min and with cane 10 min. LTG Duration 07/22/24 (06/07/24: Met goal for standing posture) One Impairment Lacks appropriate self care HEP Short Term Goal (STG) Pt will be educated and demonstrate knowledge of proper sitting/standing posture. 05/13/24: progressing awareness posture standing with posture HEP and during calf stretch in doorway. 05/18/24: progression: instruction seated use pillows in recliner for improved posture (not sacral sitting), verbalized and use pillows in PT today. 05/24/24: Pt educated in proper posture with wall standing awareness training. 06/07/24: Pt able to sit with good posture and is aware of good standing posture. STG Duration 05/20/24 progressing : good posture in sitting Retirement Goal (LTG) Pt will be independent in an effective self care HEP for core & ankle strengthening and mobility ex's, and general LE ex's. 04/29/24 HEP: Active Ankle IV/EV/DF/PF, and sit<>stand ex 's. 05/13/24: edited ankle strengthening to resisted DF / c EV TB #2 at forefoot holds for foot clearnace gait. 05/18/24: added open book and serratus press use can for scapular and thoracic mobility pnfree. 05/24/24: HO issued for Bed mobility with writting I/S for sit<>stand with breath & Kegel. 05/31/24: added heel raises, DF raises, step up fwd/bwd/ lateral for ankle and hip strengthening and balance progression for confidence stair mgt. DC TB ankle ex. LTG Duration 07/22/24 progressed 05/31/24 Assessment Summary Assessment Pt progressed 94 ft during 6 min gait around clinic using SPC today, very low level awareness discomfort R ankle and no back pain. She reports good LE effort tiring with no pain throughout exercises in standing today, tolerated trialed resisted side steppint today. Continue to provide cues for elevated posturing throughout tx to support foot clearance and back health support. Physical Therapy Plan Frequency and Duration Frequency of Treatment 2x/Week Duration of treatment (weeks) 12 Plan of Care Start Date 04/25/24 Plan of Care End Date 07/22/24 Therapeutic Interventions Therapeutic Interventions Balance Training,Gait Training ,Home Exercise Program,Manual Therapy,Neuromuscular Re- education,Self-Care/Home Management,Soft Tissue Mobilization,Therapeutic Activities,Therapeutic Exercises Modalities Cold Pack/Ice Massage,Electric Stimulation,Hot Packs Next Visit Focus/Plan Next Note Type Treatment Note Next Visit Plan (precaution R TKA, DC shoulder rehab at pt request). Next: Continue hip strengthening add resisted side stepping if tolerated add to HEP, trial carrying wt 1 sided, body mechanics training review for LB protection, and add walking for distance/time (walking around clinic). Progress ankle/LE strengthening to improve stair ambulation safety and tolerance. Reduce LBP and improve standing posture. Thoracic/Lumbar back pain rehab: gait/standing mechanics, add mobility ex's of anterior hips and abdomen, strengthening of back/gluteals . Progressing to Ankle rehab ( radha). Ankle Rehab: Assess ankle ROM , stairs, TUG, Gait speed/gait training. POC: Therapeutic Ex ( strengthening/ROM), Therapeutic Activity (transfer training), Gait & Balance training, Manual therapy (STM/ JMT), Pt Education (HEP, Edema and pain mgmt), modalities for pain.
--- NOTE | 2024-06-28 15:08 | PT.OTN ---
Current Diagnoses Other chronic pain (06/28/24) Pain in right shoulder (06/28/24) Pain in left shoulder (06/28/24) Pain in right ankle and joints of right foot (06/28/24) Pain in left ankle and joints of left foot (06/28/24) Pain in thoracic spine (06/28/24) Physical Therapy Treatment Note PT-OP-A Visit Information Start: 04/19/24 19:12 Freq: Status: Active Protocol: Document 06/28/24 13:51 LRN (Rec: 06/28/24 15:06 LRN [id number]) Out-Patient Physical Therapy Visit Information Visit Information Visit Type Treatment Note Visit Start Time 13:51 Visit Stop Time 14:34 Visit Number 12 (09/26 including PN) Evaluation Information Evaluation Date 04/25/24 Precautions Precautions Arthritis, bulging discs, 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 R TKA, [place] w/ hearing aides. PT-OP-B Current Condition Start: 04/19/24 19:12 Freq: Status: Active Protocol: Document 04/25/24 11:39 LRN (Rec: 04/25/24 12:53 LRN [id number]) Current Condition History of Current Condition Onset Date 3-4 months ago Current Complaints LBP>UBP, f/b ankles, f/b shoulders the least hindering. History of Current Condition Insidious onset of full body pain with worsening of symptoms 3-4 months ago and pains continuing to worsen; now needing help to manage the pain. LBP is constant, UBP hurts with standing in one place or sitting in uncomfortable chair , frequent pain in ankles, sometimes shoulders. Most difficult with ascending/ descending stairs. R ankles (TKA side) is worse than L ankles. States loss of capabilities she would like to get back (see Goals). Lives alone in [place]. Drives. Uses cane walking outside and to go up/down her one step (3- 4 step). States she has a high pain tolerance. Prior Treatments and Tests PT for back, Deanna Ellington, PT - 1 yr ago. Pt for R TKA, Homa Recinos, PT - 2020. Knee is okay. Treatment Goals Patient/Caregiver Goals Pt goals: - 4-5 Stairs is a barrier. Needs UE support to go up/down curb. - Walk w/o cane for 4 laps around neighborhood (2 miles) with cane. 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 Prior Functional Status Baseline Function- Gait Walking around neighborhood 4 laps (2 miles) with cane w/ tolerable pain. Baseline Function- Other Stand 15-20' before needing to move. Curb ascend/descend with cane, with moderate instability. Current Functional Impairments (Reported) Functional Limitations- ADL's Stands 5' before back hurts. Needs UE support to go up/down curb due to sense of instability. Functional Limitations- Mobility/Gait Walks 2 laps around the neighborhood (1 mile) with cane slowly with tolerable pain. Personal Factors Other Personal Factors That May Effect Lives alone. Drives self. Therapy/Recovery PT-OP-C Subjective Start: 04/19/24 19:12 Freq: Status: Active Protocol: Document 06/28/24 13:51 LRN (Rec: 06/28/24 15:06 LRN [id number]) OP-PT Subjective Patient Comments Patient Comments Doing better in general but is having off days. Wants to focus on upper and low back pain. Ankle pain comes and goes. PT-OP-D Balance Start: 04/19/24 19:12 Freq: Status: Active Protocol: Document 05/13/24 14:38 SP (Rec: 05/13/24 16:02 SP [id number]) Underwood Balance Assessment Total Score Underwood Impairment Rating 20 to 39% Impaired (Score 34- 44) Tinetti Balance Assessment Scoring and Interpretation Interpretation of Scores Low risk for falls (>24) Tinetti Impairment Rating from Composite 1 to <20% Impaired (Score 23- Score 27) PT-OP-G Mobility & Gait Start: 04/19/24 19:12 Freq: Status: Active Protocol: Document 04/25/24 11:39 LRN (Rec: 04/25/24 12:53 LRN [id number]) OP Gait Assessment Gait Gait Assistance Required: Independent Distance (Feet) 60 Able to Maintain Weight Bearing Status Yes During Gait Assistive Devices Assistive Device Straight Cane Gait Deviations General Gait Pattern Decreased Stride Length,Flexed Trunk Factors Limiting Gait Function Factors Limiting Gait Function Decreased Strength,Pain,Poor Balance Stair Climbing Evaluation Comments Stair Climbing Comments Pt reporting able to go up/ down curb with SPC independently but feels unstable in her balance. PT-OP-H Neuro Start: 04/19/24 19:12 Freq: Status: Active Protocol: Document 04/25/24 11:39 LRN (Rec: 04/25/24 12:53 LRN [id number]) Sensation Evaluation Gross Sensation Gross Sensation WNL PT-OP-J Posture/Palpation/Skin Start: 04/19/24 19:12 Freq: Status: Active Protocol: Document 04/25/24 11:39 LRN (Rec: 04/25/24 12:53 LRN [id number]) Posture Evaluation Position Standing Head/C-Spine Posture Forward Head T-Spine Posture Flattened Shoulder Posture (L) Elevated Scapula Posture (L) Elevated Pelvis Posture (L) Iliac Crest Superior,(L) PSIS Posterior Weight Distribution Weight Shifted Right Hip Posture (L) Flexed,(R) Flexed Knee Posture (L) Genu Valgus,(L) Excess Flexion Comments Posture Comments L breast high, Trunk a little R SB, flexed at hips 22 deg's , L knee flexed 10 deg's. Palpation Assessment Location L/S Palpation Location L L/S paraspinals, QL, Gluteals Palpation Findings Soft Tissue Tightness,Muscle Guarding Palpation Details Tenderness at L PSIS. T/S Palpation Location Paraspinals Palpation Findings Soft Tissue Tightness,Muscle Guarding,Tenderness Palpation Details R side muscle guarding. Intrascapular ms pain. PT-OP-K Range of Motion Start: 04/19/24 19:12 Freq: Status: Active Protocol: Document 05/03/24 10:06 AB (Rec: 05/03/24 12:50 AB [id number]) Ankle and Foot Goniometric Range of Motion Ankle and Foot PROM right Ankle/Foot ROM WFL Yes Testing Position Standing Comments DF with knee flexed left knee 7 cm from wall with great toe to wall prior to heel off floor AROM right Ankle/Foot ROM WFL No Testing Position Supine Comments AROM DF with knee ext lacking 8 deg from neutral PROM left Ankle/Foot ROM WFL No Testing Position Standing Comments DF with knee flexed left knee 8.5 cm from wall with great toe to wall prior to heel off floor AROM left Ankle/Foot ROM WFL No Testing Position Supine Comments AROM DF with knee ext lacking 12 deg from neutral PT-OP-M Strength Start: 04/19/24 19:12 Freq: Status: Active Protocol: Document 04/29/24 09:09 LRN (Rec: 04/29/24 09:52 LRN [id number]) Ankle/Foot Strength Ankle and Foot Manual Muscle Testing Right Dorsiflexion (L4) 3+ Fair+ Plantarflexion (S1) 5 Normal Inversion 3+ Fair+ Eversion (S1) 4 Good Comments DF ROM is to neutral. Supination is 3+/5 Pronation is 4/5 Left Dorsiflexion (L4) 3+ Fair+ Plantarflexion (S1) 5 Normal Inversion 3+ Fair+ Eversion (S1) 4+ Good+ Comments DF ROM is to neutral. Supination is 3+/5 Pronation is 4+/5 PT-OP-Q Treatments Start: 04/19/24 19:12 Freq: Status: Active Protocol: Document 06/28/24 13:51 LRN (Rec: 06/28/24 15:06 LRN [id number]) Therapeutic Exercises Standing Exercises Trunk Ext Equipment Used // bars Reps/Minutes 2' Comments Cued extension w/o pain range. Anterior hip stretch Standing Exercise Name Step/lunge forward/back (motor relearning) with sit rests. Equipment Used // bars Reps/Minutes 9' Comments Cued chest up, knee over ankle on fwd leg, back leg straight . Wall standing Standing Exercise Name Posture correction with wall & w/o wall standing Resistance L lateral SB midline/level shld Equipment Used Cued pt for TA tightening to decr possible L/S radiculopathy into lwr legs Reps/Minutes 7' Comments B heels touching wall /c improved TKE /c knees parallel : on&off wall Therapeutic Activity Therapeutic Activity Postural sitting Name Sitting with LB support of folded towel or towel rol Reps/Minutes 4' Body mechanics training Name lifting, sweeping, washing dishes, vacuuming, don/doff socks/shoes Reps/Minutes 8' Comments Discussed use of reaching for picking things off the ground. Gait Training Gait Activity Gait on level Description Gait with light physical cuing for chest up, fwd lunge motion w/legs Device Used // bars Level of Assistance SBA>CGA Surface Level Distance/Duration 20' x 6 Treatment Focus Proper posture to get hip ext and lumbar lordosis. Self-Care/Home Management Treatment Activities Self-Care/Home Management Activities Issued & reviewed handouts of proper sitting and standing posture, correct sit posture in different types of chairs, and proper body mechanics for ADLs. PT-OP-T Assessment and Plan Start: 04/19/24 19:12 Freq: Status: Active Protocol: Document 06/28/24 13:51 LRN (Rec: 06/28/24 15:06 LRN [id number]) Physical Therapy Assessment Goals Four Impairment Decreased endurance & exer tolerance (gait 1 mile), PLOF- 2 miles w/cane Short Term Goal (STG) Improve ankle strength to decrease ankle pain with walking. 05/13/25: added DF /c EV TB #2 teal, LAQ TB #2. 05/31/24: added standing heel raises, DF raises, step ups fwd/bwd/lateral 06/20/24: R ankle pain can be 3 -4/10 toward end of her walks at 1 mile (walking quicker pacing with younger friend) but other times not at all when by herself and end tx light 1/10 R ankle. STG Duration 06/24/24 progressing 06/20/24 Quenching Machine Operator Goal (LTG) Improve LE endurance with pt able to walk with cane for 4 laps around the neighborhood ( ~2 miles) with pain rated no more than 4/10. (Prior level of function: Able to walk 1 mile with back pain rated 3-4/ 10). 06/20/24: walking about 1 miles (2 laps around neighborhood) primarily due to tiring trying keep up pacing with young friend and not built endurance, 1-3/10 R ankle. LTG Duration 07/22/24 progressing 06/20/24 Three Impairment Decreased LE strength/balance with pt feeling insecure with stair abulation Short Term Goal (STG) Improve SLS and ankle strength with pt able to amb up/down 4 steps with rail w/o fear of falling. 05/13/24: SLS 1-2 sec Alok; TInetti Low fall risk 1- 20% impaired, UNDERWOOD 42/56 20-39 % impaired 05/31/24 SLS 1-2 sec RLE, 2-3 sec LLE. Pt able to ascend/ descend receiprocal stepping on stairs BUE on HR support but thinks family only has 1 HR. Noted R>L decreased DF activation, improves with reps and after standing HEP. STG Duration 06/24/24 slow progression SLS 05/31/24 Quenching Machine Operator Goal (LTG) Improve function per LEFS ( initial eval score 24 = 60-79% impaired, score 17-31) with pt able to ambulate up/down 4- 5 stairs & a curb with SPC with confidence. 06/07/24: LEFS score 23 (60- 79% impaired, score 17-31). LTG Duration 07/22/24 (06/07/24: no significant change in LEFS score) Two Impairment Pain UB (4/10) & LB (3-4/10) Short Term Goal (STG) Pt will be able to demonstrate proper body mechanics for ADLs (lifting, reaching, carrying objects with one hand ). 05/18/24: Progression: started ed/instruction postural alignment seated use pillows, standing on/off wall improved carryover and intiated seated and log roll technique for back health/spinal support. 06/07/24: Reviewed mechanics for lifting, carrying objects, and reaching). STG Duration 05/20/24 Progression Skilled Nursing Goal (LTG) Reduce standing hip flexion to be no greater than 5 deg's with pt able to static standing for 15-20' before needing to move (ex-in gracery line). 04/3024: progression 1 improved knee/hip/postural alignment noted end tx today, has been working on wall posture. Measure if needed next tx. 06/07/24: Pt has 4 deg's hip flexion in independent standing, 0 deg's against wall . Pt notes able to stand 6-7 min and with cane 10 min. LTG Duration 07/22/24 (06/07/24: Met goal for standing posture) One Impairment Lacks appropriate self care HEP Short Term Goal (STG) Pt will be educated and demonstrate knowledge of proper sitting/standing posture. 05/13/24: progressing awareness posture standing with posture HEP and during calf stretch in doorway. 05/18/24: progression: instruction seated use pillows in recliner for improved posture (not sacral sitting), verbalized and use pillows in PT today. 05/24/24: Pt educated in proper posture with wall standing awareness training. 06/07/24: Pt able to sit with good posture and is aware of good standing posture. STG Duration 05/20/24 progressing : good posture in sitting Quenching Machine Operator Goal (LTG) Pt will be independent in an effective self care HEP for core & ankle strengthening and mobility ex's, and general LE ex's. 04/29/24 HEP: Active Ankle IV/EV/DF/PF, and sit<>stand ex 's. 05/13/24: edited ankle strengthening to resisted DF / c EV TB #2 at forefoot holds for foot clearnace gait. 05/18/24: added open book and serratus press use can for scapular and thoracic mobility pnfree. 05/24/24: HO issued for Bed mobility with writting I/S for sit<>stand with breath & Kegel. 05/31/24: added heel raises, DF raises, step up fwd/bwd/ lateral for ankle and hip strengthening and balance progression for confidence stair mgt. DC TB ankle ex. LTG Duration 07/22/24 progressed 05/31/24( need core/general LE strengthening, ankle ROM) Assessment Summary Assessment 84 yo female, initially seen with pain in multiple areas of her body, w/rehab focused on reducing upper & lower back pain and R>L ankle pain, but now prefers focus to be on upper/lower back pain. Pt walking with FB at waist due to feeling of instability and lack of lumbar extension/ lordosis, causing onset of LBP . Pt upper back is straight and may need thoracic flexion stretching. Physical Therapy Plan Frequency and Duration Frequency of Treatment 2x/Week Duration of treatment (weeks) 12 Plan of Care Start Date 04/25/24 Plan of Care End Date 07/22/24 Next Visit Focus/Plan Next Note Type Progress Note Next Visit Plan (precaution R TKA, DC shoulder rehab at pt request). Next: Change focus to upper/low back pain resolution per pt request. Hip strengthening as needed to minimize LBP. May add resisted side stepping to HEP. Manual therapy (STM) - UB/LB. Add walking for distance/time (walking around clinic). Trial carrying of wt 1 sided is probably not needed. Thoracic/Lumbar back pain rehab: gait/standing mechanics, add mobility ex's of anterior hips and abdomen, strengthening of back/gluteals . Progressing to Ankle rehab ( alok): Strengthening to improve stair ambulation safety and tolerance, TUG, Gait speed/gait training. POC: Reduce UBP/LBP and improve standing posture, Therapeutic Ex (strengthening/ ROM), Gait & Balance training, Manual therapy (STM), HEP, as needed modalities for pain.
--- NOTE | 2024-07-05 17:28 | PT.OTN ---
Current Diagnoses Other chronic pain (07/05/24) Pain in right shoulder (07/05/24) Pain in left shoulder (07/05/24) Pain in right ankle and joints of right foot (07/05/24) Pain in left ankle and joints of left foot (07/05/24) Pain in thoracic spine (07/05/24) Physical Therapy Treatment Note PT-OP-A Visit Information Start: 04/19/24 19:12 Freq: Status: Active Protocol: Document 07/05/24 13:51 LRN (Rec: 07/05/24 14:38 LRN [id number]) Out-Patient Physical Therapy Visit Information Visit Information Visit Type Treatment Note Visit Start Time 13:51 Visit Stop Time 14:31 Visit Number 13 (10/27 including PN) Evaluation Information Evaluation Date 04/25/24 Precautions Precautions Arthritis, bulging discs, 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 PT-OP-B Current Condition Start: 04/19/24 19:12 Freq: Status: Active Protocol: Document 04/25/24 11:39 LRN (Rec: 04/25/24 12:53 LRN [id number]) Current Condition History of Current Condition Onset Date 3-4 months ago Current Complaints LBP>UBP, f/b ankles, f/b shoulders the least hindering. History of Current Condition Insidious onset of full body pain with worsening of symptoms 3-4 months ago and pains continuing to worsen; now needing help to manage the pain. LBP is constant, UBP hurts with standing in one place or sitting in uncomfortable chair , frequent pain in ankles, sometimes shoulders. Most difficult with ascending/ descending stairs. R ankles (TKA side) is worse than L ankles. States loss of capabilities she would like to get back (see Goals). Lives alone in [place]. Drives. Uses cane walking outside and to go up/down her one step (3- 4 step). States she has a high pain tolerance. Prior Treatments and Tests PT for back, Deanna Ellington, PT - 1 yr ago. Pt for R TKA, Homa Recinos, PT - 2020. Knee is okay. Treatment Goals Patient/Caregiver Goals Pt goals: - 4-5 Stairs is a barrier. Needs UE support to go up/down curb. - Walk w/o cane for 4 laps around neighborhood (2 miles) with cane. 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 Prior Functional Status Baseline Function- Gait Walking around neighborhood 4 laps (2 miles) with cane w/ tolerable pain. Baseline Function- Other Stand 15-20' before needing to move. Curb ascend/descend with cane, with moderate instability. Current Functional Impairments (Reported) Functional Limitations- ADL's Stands 5' before back hurts. Needs UE support to go up/down curb due to sense of instability. Functional Limitations- Mobility/Gait Walks 2 laps around the neighborhood (1 mile) with cane slowly with tolerable pain. Personal Factors Other Personal Factors That May Effect Lives alone. Drives self. Therapy/Recovery PT-OP-C Subjective Start: 04/19/24 19:12 Freq: Status: Active Protocol: Document 07/05/24 13:51 LRN (Rec: 07/05/24 14:38 LRN [id number]) OP-PT Subjective Patient Comments Patient Comments Pain rated 2/10 in upper and lower back. Biggest improvement is that she can stand up straighter and she can now do step up ex that she couldn't do before. Patient Questionnaires Lower Extremity Functional Scale LEFS Score 24 LEFS Impairment 60 to 79% Impaired (Score 17- 31) Oswestry Low Back Index Oswestry Score 40/100 Oswestry Impairment 40 to 59% Impaired (Score 40- 59) Quick Dash- Upper Extremity Quick Dash UE Score 38.63 Quick Dash UE Impairment 20 to 39% Impaired (Score 20- 39) OP-PT Pain Assessment Pain Assessment Grid Paper Pain Assessment Grid Completed Yes Location R shoulder Intensity 0 Scale Used Numeric (0 - 10) L shoulder Pain Location Details Posterior shoulder joint Intensity 1 Scale Used Numeric (0 - 10) Frequency Constant R ankle Pain Location Details Lateral ankle joint Intensity 1 Scale Used Numeric (0 - 10) L ankle Pain Location Details Lateral ankle joint Intensity 1 Scale Used Numeric (0 - 10) Frequency Occasional LBP Pain Location Details LB in sacral region Intensity 2 Scale Used Numeric (0 - 10) Description Aching Thoracic spine Pain Location Details Muscels Between shoulder blades Intensity 2 Scale Used Numeric (0 - 10) Description Aching PT-OP-D Balance Start: 04/19/24 19:12 Freq: Status: Active Protocol: Document 05/13/24 14:38 SP (Rec: 05/13/24 16:02 SP [id number]) Underwood Balance Assessment Total Score Underwood Impairment Rating 20 to 39% Impaired (Score 34- 44) Tinetti Balance Assessment Scoring and Interpretation Interpretation of Scores Low risk for falls (>24) Tinetti Impairment Rating from Composite 1 to <20% Impaired (Score 23- Score 27) PT-OP-G Mobility & Gait Start: 04/19/24 19:12 Freq: Status: Active Protocol: Document 04/25/24 11:39 LRN (Rec: 04/25/24 12:53 LRN [id number]) OP Gait Assessment Gait Gait Assistance Required: Independent Distance (Feet) 60 Able to Maintain Weight Bearing Status Yes During Gait Assistive Devices Assistive Device Straight Cane Gait Deviations General Gait Pattern Decreased Stride Length,Flexed Trunk Factors Limiting Gait Function Factors Limiting Gait Function Decreased Strength,Pain,Poor Balance Stair Climbing Evaluation Comments Stair Climbing Comments Pt reporting able to go up/ down curb with SPC independently but feels unstable in her balance. PT-OP-H Neuro Start: 04/19/24 19:12 Freq: Status: Active Protocol: Document 04/25/24 11:39 LRN (Rec: 04/25/24 12:53 LRN [id number]) Sensation Evaluation Gross Sensation Gross Sensation WNL PT-OP-J Posture/Palpation/Skin Start: 04/19/24 19:12 Freq: Status: Active Protocol: Document 04/25/24 11:39 LRN (Rec: 04/25/24 12:53 LRN [id number]) Posture Evaluation Position Standing Head/C-Spine Posture Forward Head T-Spine Posture Flattened Shoulder Posture (L) Elevated Scapula Posture (L) Elevated Pelvis Posture (L) Iliac Crest Superior,(L) PSIS Posterior Weight Distribution Weight Shifted Right Hip Posture (L) Flexed,(R) Flexed Knee Posture (L) Genu Valgus,(L) Excess Flexion Comments Posture Comments L breast high, Trunk a little R SB, flexed at hips 22 deg's , L knee flexed 10 deg's. Palpation Assessment Location L/S Palpation Location L L/S paraspinals, QL, Gluteals Palpation Findings Soft Tissue Tightness,Muscle Guarding Palpation Details Tenderness at L PSIS. T/S Palpation Location Paraspinals Palpation Findings Soft Tissue Tightness,Muscle Guarding,Tenderness Palpation Details R side muscle guarding. Intrascapular ms pain. PT-OP-K Range of Motion Start: 04/19/24 19:12 Freq: Status: Active Protocol: Document 05/03/24 10:06 AB (Rec: 05/03/24 12:50 AB [id number]) Ankle and Foot Goniometric Range of Motion Ankle and Foot PROM right Ankle/Foot ROM WFL Yes Testing Position Standing Comments DF with knee flexed left knee 7 cm from wall with great toe to wall prior to heel off floor AROM right Ankle/Foot ROM WFL No Testing Position Supine Comments AROM DF with knee ext lacking 8 deg from neutral PROM left Ankle/Foot ROM WFL No Testing Position Standing Comments DF with knee flexed left knee 8.5 cm from wall with great toe to wall prior to heel off floor AROM left Ankle/Foot ROM WFL No Testing Position Supine Comments AROM DF with knee ext lacking 12 deg from neutral PT-OP-M Strength Start: 04/19/24 19:12 Freq: Status: Active Protocol: Document 07/05/24 13:51 LRN (Rec: 07/05/24 14:38 LRN [id number]) Ankle/Foot Strength Ankle and Foot Manual Muscle Testing Right Eversion (S1) 3+ Fair+ Comments Strength is 5/5 except as indicated above. Left Comments Strength is 5/5. PT-OP-Q Treatments Start: 04/19/24 19:12 Freq: Status: Active Protocol: Document 07/05/24 13:51 LRN (Rec: 07/05/24 14:38 LRN [id number]) Therapeutic Exercises Supine Exercises serratus press Supine Exercise Name thoracic/scapular mobility-HEP Side bilateral Resistance AROM Reps/Minutes 8x3 rest between sets Comments painfree Sidelying Exercises open book Sidelying Exercise Name Open book for only thoracic spine (caution: spinal rods in low back) Reps/Minutes 4' each side with rest between directions. Comments Extra time to train proper mvmt and to determine max mvmt permitted Sitting Exercises Sit<>stand Sitting Exercise Name Sit<>Stand Reps/Minutes 10x [address] way ankle ex Sitting Exercise Name Panda hold (PF, DF, IV, EV) Side bilateral Reps/Minutes Panda holds x 8' Comments MMT taken Standing Exercises step ups Standing Exercise Name Stair ambulation - alternate gait ascend, step to gait descending. Equipment Used GB, Radha railing Reps/Minutes 8' Comments Pt used radha railing for balance and support. Self-Care/Home Management Treatment Education Other Education Discussed results of assessment, goals, treatment, and plan of care (POC) with pt , attendance/cx/dns policy/ insurance review; pt agreeable to, goals, treatment, attendance/cx/dns policy and POC to 4 more weeks of therapy in 08/13. PT-OP-T Assessment and Plan Start: 04/19/24 19:12 Freq: Status: Active Protocol: Document 07/05/24 13:51 LRN (Rec: 07/05/24 14:38 LRN [id number]) Physical Therapy Assessment Rehab Potential Rehabilitation Potential Good Evaluation Complexity Number of Personal Factors/Comorbidities 1-2 Number of Body Systems Impaired 4 or More Clinical Presentation at Evaluation Evolving Impairments Impairments Activity Tolerance,Balance, Gait,Pain,Posture,ROM,Strength Goals Four Impairment Decreased endurance & exer tolerance (gait 1 mile), PLOF- 2 miles w/cane Short Term Goal (STG) Improve ankle strength to decrease ankle pain with walking. 05/13/25: added DF /c EV TB #2 teal, LAQ TB #2. 05/31/24: added standing heel raises, DF raises, step ups fwd/bwd/lateral 06/20/24: R ankle pain can be 3 -4/10 toward end of her walks at 1 mile (walking quicker pacing with younger friend) but other times not at all when by herself and end tx light 1/10 R ankle. 07/05/24: Ankle sttrength radha is 5/5 except R ankle EV. Walking 3/4 mile when weather allows with ankle pain sometimes, rated 2/10. STG Duration 08/05/24 (07/05/24: Met goal for pain, pt walking 3/4 mi) Correction Goal (LTG) Improve LE endurance with pt able to walk with cane for 4 laps around the neighborhood ( ~2 miles) with pain rated no more than 4/10. (Prior level of function: Able to walk 1 mile with back pain rated 3-4/ 10). 06/20/24: walking about 1 miles (2 laps around neighborhood) primarily due to tiring trying keep up pacing with young friend and not built endurance, 1-3/10 R ankle. 07/05/24: Walking with cane 2x around neighborhood 3-4x/ week (due to poor weather inhibiting walking with back pain rated 3/10. LTG Duration 08/19/24 progressing 07/05/24 Three Impairment Decreased LE strength/balance with pt feeling insecure with stair abulation Short Term Goal (STG) Improve SLS and ankle strength with pt able to amb up/down 4 steps with rail w/o fear of falling. 05/13/24: SLS 1-2 sec Radha; TInetti Low fall risk 1- 20% impaired, UNDERWOOD 42/56 20-39 % impaired 05/31/24 SLS 1-2 sec RLE, 2-3 sec LLE. Pt able to ascend/ descend receiprocal stepping on stairs BUE on HR support but thinks family only has 1 HR. Noted R>L decreased DF activation, improves with reps and after standing HEP. STG Duration 08/05/24 slow progression SLS 05/31/24 Digital Forensics Examiner Goal (LTG) Improve function per LEFS ( initial eval score 24 = 60-79% impaired, score 17-31) with pt able to ambulate up/down 4- 5 stairs & a curb with SPC with confidence. 06/07/24: LEFS score 23 (60- 79% impaired, score 17-31). 07/05/24: Pt able to amb up/ down stairs with use of railing. alternating feet up, single step down. LTG Duration 08/19/24 (06/07/24: no significant change in LEFS score) Two Impairment Pain UB (4/10) & LB (3-4/10) Short Term Goal (STG) Pt will be able to demonstrate proper body mechanics for ADLs (lifting, reaching, carrying objects with one hand ). 05/18/24: Progression: started ed/instruction postural alignment seated use pillows, standing on/off wall improved carryover and intiated seated and log roll technique for back health/spinal support. 06/07/24: Reviewed mechanics for lifting, carrying objects, and reaching). STG Duration 08/05/24 Progression Digital Forensics Examiner Goal (LTG) Reduce standing hip flexion to be no greater than 5 deg's with pt able to static standing for 15-20' before needing to move (ex-in gracery line). 04/3024: progression 1 improved knee/hip/postural alignment noted end tx today, has been working on wall posture. Measure if needed next tx. 06/07/24: Pt has 4 deg's hip flexion in independent standing, 0 deg's against wall . Pt notes able to stand 6-7 min and with cane 10 min. 07/05/24: Pt stands with R hip 15 deg's, L hip is 10 deg' s flexion LTG Duration 08/19/24 (06/07/24: Met goal for standing posture) One Impairment Lacks appropriate self care HEP Short Term Goal (STG) Pt will be educated and demonstrate knowledge of proper sitting/standing posture. 05/13/24: progressing awareness posture standing with posture HEP and during calf stretch in doorway. 05/18/24: progression: instruction seated use pillows in recliner for improved posture (not sacral sitting), verbalized and use pillows in PT today. 05/24/24: Pt educated in proper posture with wall standing awareness training. 06/07/24: Pt able to sit with good posture and is aware of good standing posture. STG Duration 08/05/24 progressing : good posture in sitting Digital Forensics Examiner Goal (LTG) Pt will be independent in an effective self care HEP for core & ankle strengthening and mobility ex's, and general LE ex's. 04/29/24 HEP: Active Ankle IV/EV/DF/PF, and sit<>stand ex 's. 05/13/24: edited ankle strengthening to resisted DF / c EV TB #2 at forefoot holds for foot clearnace gait. 05/18/24: added open book and serratus press use can for scapular and thoracic mobility pnfree. 05/24/24: HO issued for Bed mobility with writting I/S for sit<>stand with breath & Kegel. 05/31/24: added heel raises, DF raises, step up fwd/bwd/ lateral for ankle and hip strengthening and balance progression for confidence stair mgt. DC TB ankle ex. LTG Duration 08/19/24 progressed 11/12/24( need core/general LE strengthening, ankle ROM) Assessment Summary Assessment Pt is an 84 yo female, initially seen for rehab for pain in multiple areas of her body (upper back, lower back, radha ankles, radha shoulders), at pt request pt rehab to focus on reducing upper/lower back pain, because it is functionally limiting her ability to stand, walk and ambulate stairs. Her back pain appears partially due to poor posturing, weak core and decreased gait mechanics, exacerbating decreased balance and her fear of falling. The pt will benefit from continued skilled physical therapy to improve posture, core strength & standing balance (also SLS), gait mechanics and endurance to reduce her fear of falling. Physical Therapy Plan Frequency and Duration Frequency of Treatment 2x/Week Duration of treatment (weeks) 6 Plan of Care Start Date 07/05/24 Plan of Care End Date 08/19/24 Therapeutic Interventions Therapeutic Interventions Balance Training,Gait Training ,Home Exercise Program,Manual Therapy,Neuromuscular Re- education,Self-Care/Home Management,Soft Tissue Mobilization,Therapeutic Activities,Therapeutic Exercises Next Visit Focus/Plan Next Note Type Treatment Note Next Visit Plan (precaution R TKA, DC shoulder rehab at pt request). POC: Focus on upper/low back pain resolution. Next: Postural corrections - Hip ROM, core & hip strengthening, balance/gait to improve mechanics, endurance, and safety with gait. Hip strengthening as needed to minimize LBP. May add resisted side stepping to HEP. Add walking for distance/ time (walking around clinic). HEP, as needed modalities for pain. Manual therapy (STM) - UB/LB. Thoracic/Lumbar back pain rehab: gait/standing mechanics, add mobility ex's of anterior hips and abdomen, strengthening of back/gluteals . Progressing to Ankle rehab ( radha): Strengthening to improve stair ambulation safety and tolerance, TUG, Gait speed/gait training. Trial carrying of wt 1 sided is probably not needed.
--- NOTE | 2024-07-11 15:58 | PT.OTN ---
Current Diagnoses Other chronic pain (07/11/24) Pain in right shoulder (07/11/24) Pain in left shoulder (07/11/24) Pain in right ankle and joints of right foot (07/11/24) Pain in left ankle and joints of left foot (07/11/24) Pain in thoracic spine (07/11/24) Physical Therapy Treatment Note PT-OP-A Visit Information Start: 04/19/24 19:12 Freq: Status: Active Protocol: Document 07/11/24 14:36 LRN (Rec: 07/11/24 15:57 LRN [id number]) Out-Patient Physical Therapy Visit Information Visit Information Visit Type Treatment Note Visit Start Time 14:36 Visit Stop Time 15:20 Visit Number 14 (11/26 including PN) Evaluation Information Evaluation Date 04/25/24 Precautions Precautions Arthritis, bulging discs, 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 R TKA, [place] w/ hearing aides. PT-OP-B Current Condition Start: 04/19/24 19:12 Freq: Status: Active Protocol: Document 04/25/24 11:39 LRN (Rec: 04/25/24 12:53 LRN [id number]) Current Condition History of Current Condition Onset Date 3-4 months ago Current Complaints LBP>UBP, f/b ankles, f/b shoulders the least hindering. History of Current Condition Insidious onset of full body pain with worsening of symptoms 3-4 months ago and pains continuing to worsen; now needing help to manage the pain. LBP is constant, UBP hurts with standing in one place or sitting in uncomfortable chair , frequent pain in ankles, sometimes shoulders. Most difficult with ascending/ descending stairs. R ankles (TKA side) is worse than L ankles. States loss of capabilities she would like to get back (see Goals). Lives alone in [place]. Drives. Uses cane walking outside and to go up/down her one step (3- 4 step). States she has a high pain tolerance. Prior Treatments and Tests PT for back, Deanna Ellington, PT - 1 yr ago. Pt for R TKA, Homa Recinos, PT - 2020. Knee is okay. Treatment Goals Patient/Caregiver Goals Pt goals: - 4-5 Stairs is a barrier. Needs UE support to go up/down curb. - Walk w/o cane for 4 laps around neighborhood (2 miles) with cane. 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 Prior Functional Status Baseline Function- Gait Walking around neighborhood 4 laps (2 miles) with cane w/ tolerable pain. Baseline Function- Other Stand 15-20' before needing to move. Curb ascend/descend with cane, with moderate instability. Current Functional Impairments (Reported) Functional Limitations- ADL's Stands 5' before back hurts. Needs UE support to go up/down curb due to sense of instability. Functional Limitations- Mobility/Gait Walks 2 laps around the neighborhood (1 mile) with cane slowly with tolerable pain. Personal Factors Other Personal Factors That May Effect Lives alone. Drives self. Therapy/Recovery PT-OP-C Subjective Start: 04/19/24 19:12 Freq: Status: Active Protocol: Document 07/11/24 14:36 LRN (Rec: 07/11/24 15:57 LRN [id number]) OP-PT Subjective Patient Comments Patient Comments States her pain is the wame. Pain reduced from a 2 to a 1+ after STM and trainng for self use of Theracane. Pt had a little more discomfort in R lower sacral region after LB STM. PT-OP-D Balance Start: 04/19/24 19:12 Freq: Status: Active Protocol: Document 05/13/24 14:38 SP (Rec: 05/13/24 16:02 SP [id number]) Underwood Balance Assessment Total Score Underwood Impairment Rating 20 to 39% Impaired (Score 34- 44) Tinetti Balance Assessment Scoring and Interpretation Interpretation of Scores Low risk for falls (>24) Tinetti Impairment Rating from Composite 1 to <20% Impaired (Score 23- Score 27) PT-OP-G Mobility & Gait Start: 04/19/24 19:12 Freq: Status: Active Protocol: Document 04/25/24 11:39 LRN (Rec: 04/25/24 12:53 LRN [id number]) OP Gait Assessment Gait Gait Assistance Required: Independent Distance (Feet) 60 Able to Maintain Weight Bearing Status Yes During Gait Assistive Devices Assistive Device Straight Cane Gait Deviations General Gait Pattern Decreased Stride Length,Flexed Trunk Factors Limiting Gait Function Factors Limiting Gait Function Decreased Strength,Pain,Poor Balance Stair Climbing Evaluation Comments Stair Climbing Comments Pt reporting able to go up/ down curb with SPC independently but feels unstable in her balance. PT-OP-H Neuro Start: 04/19/24 19:12 Freq: Status: Active Protocol: Document 04/25/24 11:39 LRN (Rec: 04/25/24 12:53 LRN [id number]) Sensation Evaluation Gross Sensation Gross Sensation WNL PT-OP-J Posture/Palpation/Skin Start: 04/19/24 19:12 Freq: Status: Active Protocol: Document 04/25/24 11:39 LRN (Rec: 04/25/24 12:53 LRN [id number]) Posture Evaluation Position Standing Head/C-Spine Posture Forward Head T-Spine Posture Flattened Shoulder Posture (L) Elevated Scapula Posture (L) Elevated Pelvis Posture (L) Iliac Crest Superior,(L) PSIS Posterior Weight Distribution Weight Shifted Right Hip Posture (L) Flexed,(R) Flexed Knee Posture (L) Genu Valgus,(L) Excess Flexion Comments Posture Comments L breast high, Trunk a little R SB, flexed at hips 22 deg's , L knee flexed 10 deg's. Palpation Assessment Location L/S Palpation Location L L/S paraspinals, QL, Gluteals Palpation Findings Soft Tissue Tightness,Muscle Guarding Palpation Details Tenderness at L PSIS. T/S Palpation Location Paraspinals Palpation Findings Soft Tissue Tightness,Muscle Guarding,Tenderness Palpation Details R side muscle guarding. Intrascapular ms pain. PT-OP-K Range of Motion Start: 04/19/24 19:12 Freq: Status: Active Protocol: Document 05/03/24 10:06 AB (Rec: 05/03/24 12:50 AB [id number]) Ankle and Foot Goniometric Range of Motion Ankle and Foot PROM right Ankle/Foot ROM WFL Yes Testing Position Standing Comments DF with knee flexed left knee 7 cm from wall with great toe to wall prior to heel off floor AROM right Ankle/Foot ROM WFL No Testing Position Supine Comments AROM DF with knee ext lacking 8 deg from neutral PROM left Ankle/Foot ROM WFL No Testing Position Standing Comments DF with knee flexed left knee 8.5 cm from wall with great toe to wall prior to heel off floor AROM left Ankle/Foot ROM WFL No Testing Position Supine Comments AROM DF with knee ext lacking 12 deg from neutral PT-OP-M Strength Start: 04/19/24 19:12 Freq: Status: Active Protocol: Document 07/05/24 13:51 LRN (Rec: 07/05/24 14:38 LRN [id number]) Ankle/Foot Strength Ankle and Foot Manual Muscle Testing Right Eversion (S1) 3+ Fair+ Comments Strength is 5/5 except as indicated above. Left Comments Strength is 5/5. PT-OP-Q Treatments Start: 04/19/24 19:12 Freq: Status: Active Protocol: Document 07/11/24 14:36 LRN (Rec: 07/11/24 15:57 LRN [id number]) Therapeutic Exercises Sitting Exercises Shoulder rolls Sitting Exercise Name BKWD Reps/Minutes 10x Comments I/S pt to do after STM. Manual Therapy Treatment Consent Patient gave verbal consent for manual Yes treatment Soft Tissue Mobilization Low Back Body Location Low back/Sacral region (caudal , R glide, CCW) Mobilization Type Myofascial Release Intensity/Depth Superficial Body Position Sidelying Comments R sidelie. Pt began to experience vertigo as she was rotating her head to left when vertigo started. Pt I/S to use cold pack to the back at home to reduce discomfort from treatement. mid thoracic Body Location Mid thoracic Paraspinals R>L Mobilization Type Myofascial Release,Sustained Pressure,Trigger Point Release Intensity/Depth Moderate Body Position Sitting Comments Self massage trng with THeracane. Primarily on R side at T3-T5. PT-OP-T Assessment and Plan Start: 04/19/24 19:12 Freq: Status: Active Protocol: Document 07/11/24 14:36 LRN (Rec: 07/11/24 15:57 [facility] [id number]) Physical Therapy Assessment Goals Four Impairment Decreased endurance & exer tolerance (gait 1 mile), PLOF- 2 miles w/cane Short Term Goal (STG) Improve ankle strength to decrease ankle pain with walking. 05/13/25: added DF /c EV TB #2 teal, LAQ TB #2. 05/31/24: added standing heel raises, DF raises, step ups fwd/bwd/lateral 06/20/24: R ankle pain can be 3 -4/10 toward end of her walks at 1 mile (walking quicker pacing with younger friend) but other times not at all when by herself and end tx light 1/10 R ankle. 07/05/24: Ankle sttrength alok is 5/5 except R ankle EV. Walking 3/4 mile when weather allows with ankle pain sometimes, rated 2/10. STG Duration 08/05/24 (07/05/24: Met goal for pain, pt walking 3/4 mi) Transfer Station Operator Goal (LTG) Improve LE endurance with pt able to walk with cane for 4 laps around the neighborhood ( ~2 miles) with pain rated no more than 4/10. (Prior level of function: Able to walk 1 mile with back pain rated 3-4/ 10). 06/20/24: walking about 1 miles (2 laps around neighborhood) primarily due to tiring trying keep up pacing with young friend and not built endurance, 1-3/10 R ankle. 07/05/24: Walking with cane 2x around neighborhood 3-4x/ week (due to poor weather inhibiting walking with back pain rated 3/10. LTG Duration 08/19/24 progressing 07/05/24 Three Impairment Decreased LE strength/balance with pt feeling insecure with stair abulation Short Term Goal (STG) Improve SLS and ankle strength with pt able to amb up/down 4 steps with rail w/o fear of falling. 05/13/24: SLS 1-2 sec Alok; TInetti Low fall risk 1- 20% impaired, UNDERWOOD 42/56 20-39 % impaired 05/31/24 SLS 1-2 sec RLE, 2-3 sec LLE. Pt able to ascend/ descend receiprocal stepping on stairs BUE on HR support but thinks family only has 1 HR. Noted R>L decreased DF activation, improves with reps and after standing HEP. STG Duration 08/05/24 slow progression SLS 05/31/24 Skilled Nursing Goal (LTG) Improve function per LEFS ( initial eval score 24 = 60-79% impaired, score 17-31) with pt able to ambulate up/down 4- 5 stairs & a curb with SPC with confidence. 06/07/24: LEFS score 23 (60- 79% impaired, score 17-31). 07/05/24: Pt able to amb up/ down stairs with use of railing. alternating feet up, single step down. LTG Duration 08/19/24 (06/07/24: no significant change in LEFS score) Two Impairment Pain UB (4/10) & LB (3-4/10) Short Term Goal (STG) Pt will be able to demonstrate proper body mechanics for ADLs (lifting, reaching, carrying objects with one hand ). 05/18/24: Progression: started ed/instruction postural alignment seated use pillows, standing on/off wall improved carryover and intiated seated and log roll technique for back health/spinal support. 06/07/24: Reviewed mechanics for lifting, carrying objects, and reaching). STG Duration 08/05/24 Progression Transfer Station Operator Goal (LTG) Reduce standing hip flexion to be no greater than 5 deg's with pt able to static standing for 15-20' before needing to move (ex-in gracery line). 04/3024: progression 1 improved knee/hip/postural alignment noted end tx today, has been working on wall posture. Measure if needed next tx. 06/07/24: Pt has 4 deg's hip flexion in independent standing, 0 deg's against wall . Pt notes able to stand 6-7 min and with cane 10 min. 07/05/24: Pt stands with R hip 15 deg's, L hip is 10 deg' s flexion LTG Duration 08/19/24 (06/07/24: Met goal for standing posture) One Impairment Lacks appropriate self care HEP Short Term Goal (STG) Pt will be educated and demonstrate knowledge of proper sitting/standing posture. 05/13/24: progressing awareness posture standing with posture HEP and during calf stretch in doorway. 05/18/24: progression: instruction seated use pillows in recliner for improved posture (not sacral sitting), verbalized and use pillows in PT today. 05/24/24: Pt educated in proper posture with wall standing awareness training. 06/07/24: Pt able to sit with good posture and is aware of good standing posture. STG Duration 08/05/24 progressing : good posture in sitting Skilled Nursing Goal (LTG) Pt will be independent in an effective self care HEP for core & ankle strengthening and mobility ex's, and general LE ex's. 04/29/24 HEP: Active Ankle IV/EV/DF/PF, and sit<>stand ex 's. 05/13/24: edited ankle strengthening to resisted DF / c EV TB #2 at forefoot holds for foot clearnace gait. 05/18/24: added open book and serratus press use can for scapular and thoracic mobility pnfree. 05/24/24: HO issued for Bed mobility with writting I/S for sit<>stand with breath & Kegel. 05/31/24: added heel raises, DF raises, step up fwd/bwd/ lateral for ankle and hip strengthening and balance progression for confidence stair mgt. DC TB ankle ex. LTG Duration 08/19/24 progressed 05/31/24( need core/general LE strengthening, ankle ROM) Assessment Summary Assessment 84 yo female initially seen for rehab for pain in multiple areas of the body (UBP, LBP, alok ankles, alok shoulders), her R ankle pain is less since ankle strengthening (used to hurt frequently walking and standing in one place) and is now intermittent; her back ( upper & lower) pain is more limiting than her shoulder pain; therefore rehab is focused on reducing his back pain at pt request. Today her upper back pain with STM reduced from 2/10 to 1.5+/10. Her Low back was more sore after STM, and at end pt began to experience vertigo in R sidelie as she tried to look behind her (turning her head L ). She was able to roll to other side slowly to sit up w/ o onset of vertigo. Pt I/S and needing to use coldpack to lower back today when home. Physical Therapy Plan Frequency and Duration Frequency of Treatment 2x/Week Duration of treatment (weeks) 6 Plan of Care Start Date 07/05/24 Plan of Care End Date 08/19/24 Next Visit Focus/Plan Next Note Type Treatment Note Next Visit Plan (precaution R TKA, DC shoulder rehab at pt request). Next: Assess response to use of ice at home after STM for pain mgmt. Postural corrections - Hip ROM, core & hip strengthening, balance/ gait to improve mechanics, endurance, and safety with gait. Hip strengthening as needed to minimize LBP. May add resisted side stepping to HEP. Add walking for distance/ time (walking around clinic). HEP, as needed modalities for pain. Manual therapy (STM) - UB/LB. POC: Focus on upper/low back pain resolution: Thoracic/Lumbar back pain rehab: gait/standing mechanics, add mobility ex's of anterior hips and abdomen, strengthening of back/gluteals . Ankle rehab (alok) progression as time permits: Strengthening to improve stair ambulation safety and tolerance, TUG, Gait speed/ gait training.
[2024-07-21 14:32] VITALS: BP 169/87; PULSE 72
--- NOTE | 2024-07-21 15:41 | PT.OTN ---
Current Diagnoses Other chronic pain (07/21/24) Pain in right shoulder (07/21/24) Pain in left shoulder (07/21/24) Pain in right ankle and joints of right foot (07/21/24) Pain in left ankle and joints of left foot (07/21/24) Pain in thoracic spine (07/21/24) Physical Therapy Treatment Note PT-OP-A Visit Information Start: 04/19/24 19:12 Freq: Status: Active Protocol: Document 07/21/24 14:32 LRN (Rec: 07/21/24 15:35 LRN [id number]) Out-Patient Physical Therapy Visit Information Visit Information Visit Type Treatment Note Visit Start Time 14:32 Visit Stop Time 15:15 Visit Number 15 (2 after PN) Evaluation Information Evaluation Date 04/25/24 Precautions Precautions Arthritis, bulging discs, 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 R TKA, SAMISH w/ hearing aides. PT-OP-B Current Condition Start: 04/19/24 19:12 Freq: Status: Active Protocol: Document 04/25/24 11:39 LRN (Rec: 04/25/24 12:53 LRN [id number]) Current Condition History of Current Condition Onset Date 3-4 months ago Current Complaints LBP>UBP, f/b ankles, f/b shoulders the least hindering. History of Current Condition Insidious onset of full body pain with worsening of symptoms 3-4 months ago and pains continuing to worsen; now needing help to manage the pain. LBP is constant, UBP hurts with standing in one place or sitting in uncomfortable chair , frequent pain in ankles, sometimes shoulders. Most difficult with ascending/ descending stairs. R ankles (TKA side) is worse than L ankles. States loss of capabilities she would like to get back (see Goals). Lives alone in [place]. Drives. Uses cane walking outside and to go up/down her one step (3- 4 step). States she has a high pain tolerance. Prior Treatments and Tests PT for back, Deanna Ellington, PT - 1 yr ago. Pt for R TKA, Homa Recinos, PT - 2020. Knee is okay. Treatment Goals Patient/Caregiver Goals Pt goals: - 4-5 Stairs is a barrier. Needs UE support to go up/down curb. - Walk w/o cane for 4 laps around neighborhood (2 miles) with cane. - bellman captain one place for 15-20 ' before needing to move ( gracery line). Prior Functional Status Baseline Function- Gait Walking around neighborhood 4 laps (2 miles) with cane w/ tolerable pain. Baseline Function- Other Stand 15-20' before needing to move. Curb ascend/descend with cane, with moderate instability. Current Functional Impairments (Reported) Functional Limitations- ADL's Stands 5' before back hurts. Needs UE support to go up/down curb due to sense of instability. Functional Limitations- Mobility/Gait Walks 2 laps around the neighborhood (1 mile) with cane slowly with tolerable pain. Personal Factors Other Personal Factors That May Effect Lives alone. Drives self. Therapy/Recovery PT-OP-C Subjective Start: 04/19/24 19:12 Freq: Status: Active Protocol: Document 07/21/24 14:32 LRN (Rec: 07/21/24 15:35 LRN [id number]) OP-PT Subjective Patient Comments Patient Comments Has had vertigo the day after the last session, but not since (past 2 days). PT-OP-D Balance Start: 04/19/24 19:12 Freq: Status: Active Protocol: Document 05/13/24 14:38 SP (Rec: 05/13/24 16:02 SP [id number]) Underwood Balance Assessment Total Score Underwood Impairment Rating 20 to 39% Impaired (Score 34- 44) Tinetti Balance Assessment Scoring and Interpretation Interpretation of Scores Low risk for falls (>24) Tinetti Impairment Rating from Composite 1 to <20% Impaired (Score 23- Score 27) PT-OP-G Mobility & Gait Start: 04/19/24 19:12 Freq: Status: Active Protocol: Document 04/25/24 11:39 LRN (Rec: 04/25/24 12:53 LRN [id number]) OP Gait Assessment Gait Gait Assistance Required: Independent Distance (Feet) 60 Able to Maintain Weight Bearing Status Yes During Gait Assistive Devices Assistive Device Straight Cane Gait Deviations General Gait Pattern Decreased Stride Length,Flexed Trunk Factors Limiting Gait Function Factors Limiting Gait Function Decreased Strength,Pain,Poor Balance Stair Climbing Evaluation Comments Stair Climbing Comments Pt reporting able to go up/ down curb with SPC independently but feels unstable in her balance. PT-OP-H Neuro Start: 04/19/24 19:12 Freq: Status: Active Protocol: Document 07/21/24 14:32 LRN (Rec: 07/21/24 15:41 LRN [id number]) Vital Signs Pulse 07/21/24 Pulse at Rest (bpm) 72 Pulse Assessment Method Palpation Blood Pressure 07/21/24 Blood Pressure (90/60-120/80 mmHg) 169/87 H Blood Pressure Source Automatic Cuff PT-OP-J Posture/Palpation/Skin Start: 04/19/24 19:12 Freq: Status: Active Protocol: Document 04/25/24 11:39 LRN (Rec: 04/25/24 12:53 LRN [id number]) Posture Evaluation Position Standing Head/C-Spine Posture Forward Head T-Spine Posture Flattened Shoulder Posture (L) Elevated Scapula Posture (L) Elevated Pelvis Posture (L) Iliac Crest Superior,(L) PSIS Posterior Weight Distribution Weight Shifted Right Hip Posture (L) Flexed,(R) Flexed Knee Posture (L) Genu Valgus,(L) Excess Flexion Comments Posture Comments L breast high, Trunk a little R SB, flexed at hips 22 deg's , L knee flexed 10 deg's. Palpation Assessment Location L/S Palpation Location L L/S paraspinals, QL, Gluteals Palpation Findings Soft Tissue Tightness,Muscle Guarding Palpation Details Tenderness at L PSIS. T/S Palpation Location Paraspinals Palpation Findings Soft Tissue Tightness,Muscle Guarding,Tenderness Palpation Details R side muscle guarding. Intrascapular ms pain. PT-OP-K Range of Motion Start: 04/19/24 19:12 Freq: Status: Active Protocol: Document 05/03/24 10:06 AB (Rec: 05/03/24 12:50 AB [id number]) Ankle and Foot Goniometric Range of Motion Ankle and Foot PROM right Ankle/Foot ROM WFL Yes Testing Position Standing Comments DF with knee flexed left knee 7 cm from wall with great toe to wall prior to heel off floor AROM right Ankle/Foot ROM WFL No Testing Position Supine Comments AROM DF with knee ext lacking 8 deg from neutral PROM left Ankle/Foot ROM WFL No Testing Position Standing Comments DF with knee flexed left knee 8.5 cm from wall with great toe to wall prior to heel off floor AROM left Ankle/Foot ROM WFL No Testing Position Supine Comments AROM DF with knee ext lacking 12 deg from neutral PT-OP-M Strength Start: 04/19/24 19:12 Freq: Status: Active Protocol: Document 07/05/24 13:51 LRN (Rec: 07/05/24 14:38 LRN [id number]) Ankle/Foot Strength Ankle and Foot Manual Muscle Testing Right Eversion (S1) 3+ Fair+ Comments Strength is 5/5 except as indicated above. Left Comments Strength is 5/5. PT-OP-Q Treatments Start: 04/19/24 19:12 Freq: Status: Active Protocol: Document 07/21/24 14:32 LRN (Rec: 07/21/24 15:38 LRN [id number]) Manual Therapy Treatment Soft Tissue Mobilization Low Back Body Location Low back/Sacral region (caudal , R glide, CCW) Mobilization Type Strumming,Sustained Pressure, Trigger Point Release Intensity/Depth Superficial Body Position Sitting Comments Position: Sitting, leaning fwd onto plinth. Pt began to experience vertigo as she was rotating her head to left when vertigo started. mid thoracic Body Location Mid thoracic Paraspinals R>L Mobilization Type Myofascial Release,Sustained Pressure,Trigger Point Release Intensity/Depth Moderate Body Position Sitting Comments Position: Sitting, leaning fwd onto plinth. Self massage trng with THeracane at start of therapy. Primarily on R side at T3-T5 . PT-OP-T Assessment and Plan Start: 04/19/24 19:12 Freq: Status: Active Protocol: Document 07/21/24 14:32 LRN (Rec: 07/21/24 15:35 LRN [id number]) Physical Therapy Assessment Goals Four Impairment Decreased endurance & exer tolerance (gait 1 mile), PLOF- 2 miles w/cane Short Term Goal (STG) Improve ankle strength to decrease ankle pain with walking. 05/13/25: added DF /c EV TB #2 teal, LAQ TB #2. 05/31/24: added standing heel raises, DF raises, step ups fwd/bwd/lateral 06/20/24: R ankle pain can be 3 -4/10 toward end of her walks at 1 mile (walking quicker pacing with younger friend) but other times not at all when by herself and end tx light 10 R ankle. 07/05/24: Ankle sttrength alok is 5/5 except R ankle EV. Walking 3/4 mile when weather allows with ankle pain sometimes, rated 2/10. STG Duration 08/05/24 (07/05/24: Met goal for pain, pt walking 3/4 mi) [employer] Goal (LTG) Improve LE endurance with pt able to walk with cane for 4 laps around the neighborhood ( ~2 miles) with pain rated no more than 4/10. (Prior level of function: Able to walk 1 mile with back pain rated 3-4/ 10). 06/20/24: walking about 1 miles (2 laps around neighborhood) primarily due to tiring trying keep up pacing with young friend and not built endurance, 1-3/10 R ankle. 07/05/24: Walking with cane 2x around neighborhood 3-4x/ week (due to poor weather inhibiting walking with back pain rated 3/10. LTG Duration 08/19/24 progressing 07/05/24 Three Impairment Decreased LE strength/balance with pt feeling insecure with stair abulation Short Term Goal (STG) Improve SLS and ankle strength with pt able to amb up/down 4 steps with rail w/o fear of falling. 05/13/24: SLS 1-2 sec Alko; TInetti Low fall risk 1- 20% impaired, UNDERWOOD 42/56 20-39 % impaired 05/31/24 SLS 1-2 sec RLE, 2-3 sec LLE. Pt able to ascend/ descend receiprocal stepping on stairs BUE on HR support but thinks family only has 1 HR. Noted R>L decreased DF activation, improves with reps and after standing HEP. STG Duration 08/05/24 slow progression SLS 05/31/24 Longterm Goal (LTG) Improve function per LEFS ( initial eval score 24 = 60-79% impaired, score 17-31) with pt able to ambulate up/down 4- 5 stairs & a curb with SPC with confidence. 06/07/24: LEFS score 23 (60- 79% impaired, score 17-31). 07/05/24: Pt able to amb up/ down stairs with use of railing. alternating feet up, single step down. LTG Duration 08/19/24 (06/07/24: no significant change in LEFS score) Two Impairment Pain UB (4/10) & LB (3-4/10) Short Term Goal (STG) Pt will be able to demonstrate proper body mechanics for ADLs (lifting, reaching, carrying objects with one hand ). 05/18/24: Progression: started ed/instruction postural alignment seated use pillows, standing on/off wall improved carryover and intiated seated and log roll technique for back health/spinal support. 06/07/24: Reviewed mechanics for lifting, carrying objects, and reaching). STG Duration 08/05/24 Progression Longterm Goal (LTG) Reduce standing hip flexion to be no greater than 5 deg's with pt able to static standing for 15-20' before needing to move (ex-in gracery line). 04/3024: progression 1 improved knee/hip/postural alignment noted end tx today, has been working on wall posture. Measure if needed next tx. 06/07/24: Pt has 4 deg's hip flexion in independent standing, 0 deg's against wall . Pt notes able to stand 6-7 min and with cane 10 min. 07/05/24: Pt stands with R hip 15 deg's, L hip is 10 deg' s flexion. 07/21/24: LBP/UBP 10 after STM. LTG Duration 08/19/24 (06/07/24: Met goal for standing posture) One Impairment Lacks appropriate self care HEP Short Term Goal (STG) Pt will be educated and demonstrate knowledge of proper sitting/standing posture. 05/13/24: progressing awareness posture standing with posture HEP and during calf stretch in doorway. 05/18/24: progression: instruction seated use pillows in recliner for improved posture (not sacral sitting), verbalized and use pillows in PT today. 05/24/24: Pt educated in proper posture with wall standing awareness training. 06/07/24: Pt able to sit with good posture and is aware of good standing posture. STG Duration 08/05/24 progressing : good posture in sitting [employer] Goal (LTG) Pt will be independent in an effective self care HEP for core & ankle strengthening and mobility ex's, and general LE ex's. 04/29/24 HEP: Active Ankle IV/EV/DF/PF, and sit<>stand ex 's. 05/13/24: edited ankle strengthening to resisted DF / c EV TB #2 at forefoot holds for foot clearnace gait. 05/18/24: added open book and serratus press use can for scapular and thoracic mobility pnfree. 05/24/24: HO issued for Bed mobility with writting I/S for sit<>stand with breath & Kegel. 05/31/24: added heel raises, DF raises, step up fwd/bwd/ lateral for ankle and hip strengthening and balance progression for confidence stair mgt. DC TB ankle ex. LTG Duration 08/19/24 progressed 05/31/24( need core/general LE strengthening, ankle ROM) Assessment Summary Assessment Today BP sitting is 169/87 ( auto cuff), HR 72 (palpation), not on BP medications, was recommended to see her PCP for assessment. Pt also advised to discuss onset of 2 vertigo episodes. + response to STM of LB/UP with release of TrP's in the LB and soft tissue relief of tension in UB, ending pain rated 1/10. Physical Therapy Plan Frequency and Duration Frequency of Treatment 2x/Week Duration of treatment (weeks) 6 Plan of Care Start Date 07/05/24 Plan of Care End Date 08/19/24 Next Visit Focus/Plan Next Note Type Treatment Note Next Visit Plan (precaution R TKA, DC shoulder rehab at pt request). Next: Check BP. End with Manual therapy (STM) - UB/LB. Assess if pt made appt with her PCP. Assess response to use of ice at home after STM for pain mgmt. Postural corrections - Hip ROM , core & hip strengthening, balance/gait to improve mechanics, endurance, and safety with gait. Hip strengthening as needed to minimize LBP. May add resisted side stepping to HEP. Add walking for distance/ time (walking around clinic). HEP, as needed modalities for pain. POC: Focus on upper/low back pain resolution: Thoracic/Lumbar back pain rehab: gait/standing mechanics, add mobility ex's of anterior hips and abdomen, strengthening of back/gluteals . Ankle rehab (alok) progression as time permits: Strengthening to improve stair ambulation safety and tolerance, TUG, Gait speed/ gait training.
--- NOTE | 2024-11-22 13:49 | PT.OPDS ---
Current Diagnoses Other chronic pain (07/21/24) Pain in right shoulder (07/21/24) Pain in left shoulder (07/21/24) Pain in right ankle and joints of right foot (07/21/24) Pain in left ankle and joints of left foot (07/21/24) Pain in thoracic spine (07/21/24) Visit Care Team Role Provider Type Symone Landrum PA-C Family Provider Non-Staff Specialty: Medical Address: [address] [place] [address], [id number] Email: [email or web address] Adela Ray PA-C Attending Provider Advanced [employer] Silverer Primary Care Provider Referring Provider Specialty: Medical Address: [address] [place] [address], [id number] Email: Visit Number Visit Number 15 (2 after PN) Discharge Summary PT-OP-B Current Condition Start: 04/19/24 19:12 Freq: Status: Active Protocol: Document 04/25/24 11:39 LRN (Rec: 04/25/24 12:53 LRN [id number]) Current Condition History of Current Condition Onset Date 3-4 months ago Current Complaints LBP>UBP, f/b ankles, f/b shoulders the least hindering. History of Current Condition Insidious onset of full body pain with worsening of symptoms 3-4 months ago and pains continuing to worsen; now needing help to manage the pain. LBP is constant, UBP hurts with standing in one place or sitting in uncomfortable chair , frequent pain in ankles, sometimes shoulders. Most difficult with ascending/ descending stairs. R ankles (TKA side) is worse than L ankles. States loss of capabilities she would like to get back (see Goals). Lives alone in [place]. Drives. Uses cane walking outside and to go up/down her one step (3- 4 step). States she has a high pain tolerance. Prior Treatments and Tests PT for back, Deanna Ellington, PT - 1 yr ago. Pt for R TKA, Homa Recinos, PT - 2020. Knee is okay. Treatment Goals Patient/Caregiver Goals Pt goals: - 4-5 Stairs is a barrier. Needs UE support to go up/down curb. - Walk w/o cane for 4 laps around neighborhood (2 miles) with cane. 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 Prior Functional Status Baseline Function- Gait Walking around neighborhood 4 laps (2 miles) with cane w/ tolerable pain. Baseline Function- Other Stand 15-20' before needing to move. Curb ascend/descend with cane, with moderate instability. Current Functional Impairments (Reported) Functional Limitations- ADL's Stands 5' before back hurts. Needs UE support to go up/down curb due to sense of instability. Functional Limitations- Mobility/Gait Walks 2 laps around the neighborhood (1 mile) with cane slowly with tolerable pain. Personal Factors Other Personal Factors That May Effect Lives alone. Drives self. Therapy/Recovery PT-OP-C Subjective Start: 04/19/24 19:12 Freq: Status: Active Protocol: Document 07/21/24 14:32 LRN (Rec: 07/21/24 15:35 LRN [id number]) OP-PT Subjective Patient Comments Patient Comments Has had vertigo the day after the last session, but not since (past 2 days). PT-OP-D Balance Start: 04/19/24 19:12 Freq: Status: Active Protocol: Document 05/13/24 14:38 SP (Rec: 05/13/24 16:02 SP [id number]) Underwood Balance Assessment Total Score Underwood Impairment Rating 20 to 39% Impaired (Score 34- 44) Tinetti Balance Assessment Scoring and Interpretation Interpretation of Scores Low risk for falls (>24) Tinetti Impairment Rating from Composite 1 to <20% Impaired (Score 23- Score 27) PT-OP-G Mobility & Gait Start: 04/19/24 19:12 Freq: Status: Active Protocol: Document 04/25/24 11:39 LRN (Rec: 04/25/24 12:53 LRN [id number]) OP Gait Assessment Gait Gait Assistance Required: Independent Distance (Feet) 60 Able to Maintain Weight Bearing Status Yes During Gait Assistive Devices Assistive Device Straight Cane Gait Deviations General Gait Pattern Decreased Stride Length,Flexed Trunk Factors Limiting Gait Function Factors Limiting Gait Function Decreased Strength,Pain,Poor Balance Stair Climbing Evaluation Comments Stair Climbing Comments Pt reporting able to go up/ down curb with SPC independently but feels unstable in her balance. PT-OP-H Neuro Start: 04/19/24 19:12 Freq: Status: Active Protocol: Document 07/21/24 14:32 LRN (Rec: 07/21/24 15:41 LRN [id number]) Vital Signs Pulse 07/21/24 Pulse at Rest (bpm) 72 Pulse Assessment Method Palpation Blood Pressure 07/21/24 Blood Pressure (90/60-120/80 mmHg) 169/87 H Blood Pressure Source Automatic Cuff PT-OP-J Posture/Palpation/Skin Start: 04/19/24 19:12 Freq: Status: Active Protocol: Document 04/25/24 11:39 LRN (Rec: 04/25/24 12:53 LRN [id number]) Posture Evaluation Position Standing Head/C-Spine Posture Forward Head T-Spine Posture Flattened Shoulder Posture (L) Elevated Scapula Posture (L) Elevated Pelvis Posture (L) Iliac Crest Superior,(L) PSIS Posterior Weight Distribution Weight Shifted Right Hip Posture (L) Flexed,(R) Flexed Knee Posture (L) Genu Valgus,(L) Excess Flexion Comments Posture Comments L breast high, Trunk a little R SB, flexed at hips 22 deg's , L knee flexed 10 deg's. Palpation Assessment Location L/S Palpation Location L L/S paraspinals, QL, Gluteals Palpation Findings Soft Tissue Tightness,Muscle Guarding Palpation Details Tenderness at L PSIS. T/S Palpation Location Paraspinals Palpation Findings Soft Tissue Tightness,Muscle Guarding,Tenderness Palpation Details R side muscle guarding. Intrascapular ms pain. PT-OP-K Range of Motion Start: 04/19/24 19:12 Freq: Status: Active Protocol: Document 05/03/24 10:06 AB (Rec: 05/03/24 12:50 AB [id number]) Ankle and Foot Goniometric Range of Motion Ankle and Foot PROM right Ankle/Foot ROM WFL Yes Testing Position Standing Comments DF with knee flexed left knee 7 cm from wall with great toe to wall prior to heel off floor AROM right Ankle/Foot ROM WFL No Testing Position Supine Comments AROM DF with knee ext lacking 8 deg from neutral PROM left Ankle/Foot ROM WFL No Testing Position Standing Comments DF with knee flexed left knee 8.5 cm from wall with great toe to wall prior to heel off floor AROM left Ankle/Foot ROM WFL No Testing Position Supine Comments AROM DF with knee ext lacking 12 deg from neutral PT-OP-M Strength Start: 04/19/24 19:12 Freq: Status: Active Protocol: Document 07/05/24 13:51 LRN (Rec: 07/05/24 14:38 LRN [id number]) Ankle/Foot Strength Ankle and Foot Manual Muscle Testing Right Eversion (S1) 3+ Fair+ Comments Strength is 5/5 except as indicated above. Left Comments Strength is 5/5. PT-OP-T Assessment and Plan Start: 04/19/24 19:12 Freq: Status: Active Protocol: Document 11/21/24 19:09 LRN (Rec: 11/21/24 19:14 LRN Laptop) Physical Therapy Assessment Goals Four Impairment Decreased endurance & exer tolerance (gait 1 mile), PLOF- 2 miles w/cane Short Term Goal (STG) Improve ankle strength to decrease ankle pain with walking. 05/13/25: added DF /c EV TB #2 teal, LAQ TB #2. 05/31/24: added standing heel raises, DF raises, step ups fwd/bwd/lateral 06/20/24: R ankle pain can be 3 -4/10 toward end of her walks at 1 mile (walking quicker pacing with younger friend) but other times not at all when by herself and end tx light 1/10 R ankle. 07/05/24: Ankle sttrength radha is 5/5 except R ankle EV. Walking 3/4 mile when weather allows with ankle pain sometimes, rated 2/10. STG Duration 08/05/24 (07/05/24: Met goal for pain, pt walking 3/4 mi) Greens Planter Goal (LTG) Improve LE endurance with pt able to walk with cane for 4 laps around the neighborhood ( ~2 miles) with pain rated no more than 4/10. (Prior level of function: Able to walk 1 mile with back pain rated 3-4/ 10). 06/20/24: walking about 1 miles (2 laps around neighborhood) primarily due to tiring trying keep up pacing with young friend and not built endurance, 1-3/10 R ankle. 07/05/24: Walking with cane 2x around neighborhood 3-4x/ week (due to poor weather inhibiting walking with back pain rated 3/10. LTG Duration 08/19/24 progressing 07/05/24 Three Impairment Decreased LE strength/balance with pt feeling insecure with stair abulation Short Term Goal (STG) Improve SLS and ankle strength with pt able to amb up/down 4 steps with rail w/o fear of falling. 05/13/24: SLS 1-2 sec Radha; TInetti Low fall risk 1- 20% impaired, UNDERWOOD 42/56 20-39 % impaired 05/31/24 SLS 1-2 sec RLE, 2-3 sec LLE. Pt able to ascend/ descend receiprocal stepping on stairs BUE on HR support but thinks family only has 1 HR. Noted R>L decreased DF activation, improves with reps and after standing HEP. STG Duration 08/05/24 slow progression SLS 05/31/24 Longterm Goal (LTG) Improve function per LEFS ( initial eval score 24 = 60-79% impaired, score 17-31) with pt able to ambulate up/down 4- 5 stairs & a curb with SPC with confidence. 06/07/24: LEFS score 23 (60- 79% impaired, score 17-31). 07/05/24: Pt able to amb up/ down stairs with use of railing. alternating feet up, single step down. LTG Duration 08/19/24 (06/07/24: no significant change in LEFS score) Two Impairment Pain UB (4/10) & LB (3-4/10) Short Term Goal (STG) Pt will be able to demonstrate proper body mechanics for ADLs (lifting, reaching, carrying objects with one hand ). 05/18/24: Progression: started ed/instruction postural alignment seated use pillows, standing on/off wall improved carryover and intiated seated and log roll technique for back health/spinal support. 06/07/24: Reviewed mechanics for lifting, carrying objects, and reaching). STG Duration 08/05/24 Progression Greens Planter Goal (LTG) Reduce standing hip flexion to be no greater than 5 deg's with pt able to static standing for 15-20' before needing to move (ex-in gracery line). 04/3024: progression 1 improved knee/hip/postural alignment noted end tx today, has been working on wall posture. Measure if needed next tx. 06/07/24: Pt has 4 deg's hip flexion in independent standing, 0 deg's against wall . Pt notes able to stand 6-7 min and with cane 10 min. 07/05/24: Pt stands with R hip 15 deg's, L hip is 10 deg' s flexion. 07/21/24: LBP/UBP 07/29 after STM. LTG Duration 08/19/24 (06/07/24: Met goal for standing posture) One Impairment Lacks appropriate self care HEP Short Term Goal (STG) Pt will be educated and demonstrate knowledge of proper sitting/standing posture. 05/13/24: progressing awareness posture standing with posture HEP and during calf stretch in doorway. 05/18/24: progression: instruction seated use pillows in recliner for improved posture (not sacral sitting), verbalized and use pillows in PT today. 05/24/24: Pt educated in proper posture with wall standing awareness training. 06/07/24: Pt able to sit with good posture and is aware of good standing posture. STG Duration 08/05/24 progressing : good posture in sitting Longterm Goal (LTG) Pt will be independent in an effective self care HEP for core & ankle strengthening and mobility ex's, and general LE ex's. 04/29/24 HEP: Active Ankle IV/EV/DF/PF, and sit<>stand ex 's. 05/13/24: edited ankle strengthening to resisted DF / c EV TB #2 at forefoot holds for foot clearnace gait. 05/18/24: added open book and serratus press use can for scapular and thoracic mobility pnfree. 05/24/24: HO issued for Bed mobility with writting I/S for sit<>stand with breath & Kegel. 05/31/24: added heel raises, DF raises, step up fwd/bwd/ lateral for ankle and hip strengthening and balance progression for confidence stair mgt. DC TB ankle ex. LTG Duration 08/19/24 progressed 05/31/24( need core/general LE strengthening, ankle ROM) Assessment Summary Assessment Pt seen for 14 visits and last seen 07/21/24. Records show pt called 07/25/24 to cancel her remaining appointments due to blood pressure too high. It was previously recommended that the pt seek further medical care for her high blood pressure in order to safely participate in physical therapy. She is beyond her plan of care and did not meet her goals. Pt is being discharged today from physical therapy. Physical Therapy Plan Discharge Physical Therapy Discharge Reasons No Longer Attending PT Discharge Comments Thank you for your referral.
== END 2024-11-24 09:51 | disposition home or self-care (01) ==
LOC: PHYS 14:30
PROVIDERS: Family Provider Physician Assistant; PCP Physician Assistant; Referring Provider Physician Assistant; Visit Provider Physician Assistant
DX: M25.572 Pain in left ankle and joints of left foot (principal); M25.571 Pain in right ankle and joints of right foot; G89.29 Other chronic pain; M54.6 Pain in thoracic spine; M25.512 Pain in left shoulder; M25.511 Pain in right shoulder
CPT/HCPCS: 97110; 97112; 97116; 97140; 97162; 97530; 97535

== ENCOUNTER → 2025-04-11 11:49 | Outpatient (CLI) | payer MEDICARE, SELFPAY ==
[2023-05-14 12:06] VITALS: BMI 27.4
--- NOTE | 2025-04-11 11:50 | DI.US.S_ITS ---
PROCEDURE: US SOFT TISSUE HEAD AND NECK INDICATIONS: Lump on neck TECHNIQUE: Real-time scanning was performed of the neck region of interest, with image documentation. COMPARISON: None. FINDINGS: Small lobulated isoechoic subcutaneous soft tissue mass corresponding to the palpable abnormality measuring 2.5 cm. No internal vascularity. IMPRESSION: Possible soft tissue lipoma given the sonographic appearance. Recommend close clinical correlation and management. If the mass increases in size, consider pre and post-contrast soft tissue MRI for further assessment. Dictated by: Armando PARRISH Interpreted: Chema Gonzalez MD on 04/11/2025 at 12:59 Transcribed by: LORIN on 04/11/2025 at 12:59 Approved by: Chema Gonzalez M.D. on 04/12/2025 at 15:03
== END ==
LOC: US 11:50
PROVIDERS: Family Provider Physician Assistant; PCP Physician Assistant; Referring Provider Physician Assistant; Visit Provider Physician Assistant
DX: R59.1 Generalized enlarged lymph nodes (principal)
CPT/HCPCS: 76536